=== PATIENT | female | born 1960 | race Caucasian/White ===

== ENCOUNTER 2019-09-02 17:07 | Emergency (ER) | payer MEDICARE ==
--- NOTE | 2019-09-02 17:30 | ED ---
Psych HPI - General Chief Complaint: Psychiatric Symptoms Stated Complaint: Petition Time Seen by Provider: 09/02/19 17:28 Source: police, RN notes reviewed, old records reviewed Mode of arrival: ambulatory Limitations: altered mental status (Psychiatric illness) - History of Present Illness Initial Comments: This is a 59 -year-old female the ER for evaluation patient is poor historian secondary to medical mental health. 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 and treatment and patient treatment patient denying homicidal thoughts but still also having difficulty answering questions MD Complaint: altered mental status, other (Not taking medications) - Related Data Home Medications Medication Instructions Recorded Confirmed Atorvastatin [Lipitor] 40 mg PO HS 09/02/19 09/02/19 Ergocalciferol [Vitamin D2] 50,000 unit PO Q7D 09/02/19 09/02/19 Losartan [Cozaar] 50 mg PO DAILY 09/02/19 09/02/19 Paliperidone IM [Invega Sustenna] 234 mg IM Q28D 09/02/19 09/02/19 fluPHENAZine [Prolixin 5MG] 5 mg PO HS 09/02/19 09/02/19 hydrALAZINE HCL 10 mg PO TID 09/02/19 09/02/19 metFORMIN HCL ER [Glucophage Xr] 500 mg PO BID 09/02/19 09/02/19 Allergies Allergy/AdvReac Type Severity Reaction Status Date / Time No Known Allergies Allergy Verified 09/02/19 17:22 Review of Systems ROS Statement: Those systems with pertinent positive or pertinent negative responses have been documented in the HPI. ROS Other: All systems not noted in ROS Statement are negative. Past Medical History Past Medical History: No Reported History History of Any Multi-Drug Resistant Organisms: None Reported Past Surgical History: No Surgical Hx Reported Past Psychological History: Unable to Obtain Smoking Status: Current every day smoker Past Alcohol Use History: None Reported Past Drug Use History: None Reported General Exam Limitations: no limitations General appearance: alert, in no apparent distress Head exam: Present: atraumatic, normocephalic, normal inspection Eye exam: Present: normal appearance, PERRL, EOMI. Absent: scleral icterus, conjunctival injection, periorbital swelling ENT exam: Present: normal exam, mucous membranes moist Neck exam: Present: normal inspection. Absent: tenderness, meningismus, lymphadenopathy Respiratory exam: Present: normal lung sounds bilaterally. Absent: respiratory distress, wheezes, rales, rhonchi, stridor Cardiovascular Exam: Present: regular rate, normal rhythm, normal heart sounds. Absent: systolic murmur, diastolic murmur, rubs, gallop, clicks GI/Abdominal exam: Present: soft, normal bowel sounds. Absent: distended, tenderness, guarding, rebound, rigid Extremities exam: Present: normal inspection, full ROM, normal capillary refill. Absent: tenderness, pedal edema, joint swelling, calf tenderness Back exam: Present: normal inspection Neurological exam: Present: alert, oriented X3, CN II-XII intact Psychiatric exam: Present: normal affect, normal mood Skin exam: Present: warm, dry, intact, normal color. Absent: rash Course Vital Signs 09/02/19 09/02/19 17:20 17:38 Temperature 97.7 F Pulse Rate 86 86 Respiratory 20 Rate Blood Pressure 165/94 138/70 O2 Sat by Pulse 97 94 L Oximetry - Reevaluation(s) Reevaluation #1: 09/02/19 18:55 Clear for psychiatric evaluation Reevaluation #2: 09/02/19 18:55 She'll be transferred for inpatient treatment Medical Decision Making - Medical Decision Making 59 female the ER for evaluation will admit for psychiatric evaluation and treatment Disposition Clinical Impression: Altered mental state, Depression, Non-compliant behavior Disposition: TRANSFER TO PSYCH HOSP/UNIT Condition: Fair Is patient prescribed a controlled substance at d/c from ED?: No Referrals: None,Stated [Primary Care Provider] - 1-2 days
[2019-09-02 22:52] VITALS: RESP 18
[2019-09-03 00:07] LABS: Basophils # (A) 0.1 k/uL (0-0.2); Basophils % (A) 1 %; Eosinophils # (A) 0.1 k/uL (0-0.7); Eosinophils % (A) 1 %; HCT 42.6 % (34.0-46.0); HGB 13.9 gm/dL (11.4-16.0); Lymphocytes # (A) 2.2 k/uL (1.0-4.8); Lymphocytes % (A) 21 %; MCH 29.6 pg (25.0-35.0); MCHC 32.7 g/dL (31.0-37.0); MCV 90.4 fL (80.0-100.0); Mean Platelet Volume 6.6; Monocytes # (A) 0.7 k/uL (0-1.0); Monocytes % (A) 6 %; Neutrophils # (A) 7.6 k/uL (1.3-7.7); Neutrophils % (A) 70 %; Platelet Count 387 k/uL (150-450); RBC 4.71 m/uL (3.80-5.40); RDW 14.3 % (11.5-15.5); WBC 10.8 k/uL (3.8-10.6)
[2019-09-03 00:08] LABS: ALT 29 U/L (9-52); AST 22 U/L (14-36); African American GFR (CKD) >90 (>60 ml/min/1.73 sqM); Alkaline Phosphatase 94 U/L (38-126); Anion Gap 6 mmol/L; Blood Urea Nitrogen 8 mg/dL (7-17); Calcium 9.4 mg/dL (8.4-10.2); Carbon Dioxide 27 mmol/L (22-30); Chloride 106 mmol/L (98-107); Glucose 170 mg/dL (74-99); Sodium 139 mmol/L (137-145); Total Bilirubin 0.4 mg/dL (0.2-1.3); Total Protein 6.8 g/dL (6.3-8.2)
[2019-09-03 01:18] LABS: Appearance,Urine Clear (Clear); Bacteria,Urine Moderate /hpf; Bilirubin,Urine Negative (Negative); Blood,Urine Trace (Negative); Color,Urine Light Yellow; Glucose,Urine (UA) Negative (Negative); Ketones,Urine Negative (Negative); Leukocyte Esterase,Urine Moderate (Negative); Mucus,Urine Rare /hpf; Nitrite,Urine Negative (Negative); PH, Urine 7.5 (5.0-8.0); Protein,Urine 1+ (Negative); RBC,Urine 3 /hpf (0-5); Specific Gravity,Urine 1.006 (1.001-1.035); Squamous Epithelial Cell,Urine 3 /hpf (0-4); Urobilinogen,Urine <2.0 mg/dL (<2.0); WBC,Urine 22 /hpf (0-5)
[2019-09-03 01:24] LABS: Amphetamine Screen,Urine Not Detected (NotDetected); Barbiturate Screen,Urine Not Detected (NotDetected); Benzodiazepines Screen,Urine Not Detected (NotDetected); Cocaine Screen,Urine Not Detected (NotDetected); Methadone Screen, Urine Not Detected (NotDetected); Opiate Screen,Urine Not Detected (NotDetected); Oxycodone Screen, Urine Not Detected (NotDetected); Phencyclidine Screen,Urine Not Detected (NotDetected); Tricyclic Antidepressant,Urine Not Detected (NotDetected); Urn Cannabinoid Scrn Not Detected (NotDetected)
[2019-09-03 06:23] VITALS: BP 134/77; PULSE 70; TEMP 97.8
== END 2019-09-03 06:49 ==
LOC: EC 17:07 → EEVIPCON 17:07 → EC 09-03 06:49
DX: Z04.6 Encounter for general psychiatric examination, requested by authority (principal); F32.9 Major depressive disorder, single episode, unspecified; R41.82 Altered mental status, unspecified; Z91.19 Patient's noncompliance with other medical treatment and regimen; F17.200 Nicotine dependence, unspecified, uncomplicated; Z79.899 Other long term (current) drug therapy
CPT/HCPCS: 36415; 80053; 80306; 81001; 82075; 85025; 99285

== ENCOUNTER 2019-12-17 20:46 | Emergency (ER) | payer MEDICARE, OTHER ==
[2019-12-17 20:53] VITALS: BP 149/85; PULSE 103; RESP 18; TEMP 98.7
[2019-12-17] MEDS ORDERED: PALIPERIDONE IM 234 MG/1.5 ML SYG IM STA (21:45)
--- NOTE | 2019-12-17 21:45 | ED ---
Psych HPI - General Chief Complaint: Psychiatric Symptoms Stated Complaint: Mental Health Eval Time Seen by Provider: 12/17/19 20:57 Source: patient, police, RN notes reviewed, old records reviewed Mode of arrival: ambulatory - History of Present Illness Initial Comments: This is a 59-year-old female poor historian secondary to clinical condition as well as underlying mental health developmental delay collision for psychiatric illness. Patient's been not taking her psychiatric medications at home was sent into the ER under court petition for medication injection the patient presents for same currently. PD brings patient to the ER they arrived with petition and history MD Complaint: altered mental status -: days(s) Associated Psychiatric Symptoms: racing thoughts Quality: constant Improves With: none Worsens With: none Context: not taking psychiatric medications Associated Symptoms: denies other symptoms Treatments Prior to Arrival: placed on mental health hold - Related Data Home Medications Medication Instructions Recorded Confirmed Atorvastatin [Lipitor] 40 mg PO HS 09/02/19 09/02/19 Ergocalciferol [Vitamin D2] 50,000 unit PO Q7D 09/02/19 09/02/19 Losartan [Cozaar] 50 mg PO DAILY 09/02/19 09/02/19 Paliperidone IM [Invega Sustenna] 234 mg IM Q28D 09/02/19 09/02/19 fluPHENAZine [Prolixin 5MG] 5 mg PO HS 09/02/19 09/02/19 hydrALAZINE HCL 10 mg PO TID 09/02/19 09/02/19 metFORMIN HCL ER [Glucophage Xr] 500 mg PO BID 09/02/19 09/02/19 Allergies Allergy/AdvReac Type Severity Reaction Status Date / Time No Known Allergies Allergy Verified 12/17/19 20:53 Review of Systems ROS Statement: Those systems with pertinent positive or pertinent negative responses have been documented in the HPI. ROS Other: All systems not noted in ROS Statement are negative. Past Medical History Past Medical History: No Reported History History of Any Multi-Drug Resistant Organisms: None Reported Past Surgical History: Section Past Psychological History: Unable to Obtain Smoking Status: Current every day smoker Past Alcohol Use History: None Reported Past Drug Use History: None Reported General Exam Limitations: no limitations General appearance: alert, in no apparent distress, anxious Head exam: Present: atraumatic, normocephalic, normal inspection Eye exam: Present: normal appearance, PERRL, EOMI. Absent: scleral icterus, conjunctival injection, periorbital swelling ENT exam: Present: normal exam, mucous membranes moist Neck exam: Present: normal inspection. Absent: tenderness, meningismus, lymphadenopathy Respiratory exam: Present: normal lung sounds bilaterally. Absent: respiratory distress, wheezes, rales, rhonchi, stridor Cardiovascular Exam: Present: normal rhythm, tachycardia, normal heart sounds. Absent: systolic murmur, diastolic murmur, rubs, gallop, clicks GI/Abdominal exam: Present: soft, normal bowel sounds. Absent: distended, tenderness, guarding, rebound, rigid Extremities exam: Present: normal inspection, full ROM, normal capillary refill. Absent: tenderness, pedal edema, joint swelling, calf tenderness Back exam: Present: normal inspection Neurological exam: Present: alert, oriented X3, CN II-XII intact Psychiatric exam: Present: normal affect, normal mood Skin exam: Present: warm, dry, intact, normal color. Absent: rash Course Vital Signs 12/17/19 20:49 Temperature 98.7 F Pulse Rate 103 H Respiratory 18 Rate Blood Pressure 149/85 - Reevaluation(s) Reevaluation #1: 12/17/19 21:50 Medical records reviewed patient was made medically clear for psychiatric evaluation Reevaluation #2: 12/17/19 21:50 Patient seen and evaluated by psych as well as talked mental health patient does have outpatient treatment plan the house very suicidal will give patient medication injection and patient will be okay for discharge Medical Decision Making - Medical Decision Making 50 female DF for evaluation of psychiatric illness given psychiatric medication here in the ER deemed okay for discharge home Disposition Clinical Impression: Acute anxiety, Psychosis Disposition: HOME SELF-CARE Condition: Fair Instructions (If sedation given, give patient instructions): Psychotic Disorder (ED) Is patient prescribed a controlled substance at d/c from ED?: No Referrals: None,Stated [Primary Care Provider] - 1-2 days
== END 2019-12-17 22:23 | disposition home or self-care (01) ==
LOC: EC 20:46
DX: F29 Unspecified psychosis not due to a substance or known physiological condition (principal); F41.9 Anxiety disorder, unspecified; F17.200 Nicotine dependence, unspecified, uncomplicated; Z79.899 Other long term (current) drug therapy
CPT/HCPCS: 82075; 99285; 96372; J2426

== ENCOUNTER 2020-02-23 19:24 | Inpatient (IN) | payer MEDICARE, MEDICAID ==
--- NOTE | 2020-02-23 20:25 | ED ---
Psych HPI - General Source: patient, RN notes reviewed Mode of arrival: ambulatory Limitations: no limitations <Scott Parikh - Last Filed: 02/23/20 21:51> <Umberto Hernandez - Last Filed: 02/23/20 21:56> - General Chief Complaint: Psychiatric Symptoms Stated Complaint: Mental Health Time Seen by Provider: 02/23/20 19:33 - History of Present Illness Initial Comments: This a 60-year-old female presents emergency Department from shelter for Psychiatric evaluation. Patient was picked up on Court picked up for medication noncompliance. Patient has been having some reported bizarre behavior, patient believes that she is her own physician. Patient denies being suicidal or homicidal. No physical complaints denies any chest pain, increased breath, nausea, vomiting, diarrhea constipation. (Scott Parikh) - Related Data Home Medications Medication Instructions Recorded Confirmed Ergocalciferol [Vitamin D2] 50,000 unit PO FR 09/02/19 02/23/20 metFORMIN HCL ER [Glucophage Xr] 1,000 mg PO DAILY@1700 09/02/19 02/23/20 Atorvastatin [Lipitor] 20 mg PO HS@2100 02/23/20 02/23/20 Losartan/Hydrochlorothiazide 1 tab PO DAILY@0800 02/23/20 02/23/20 [Losartan-Hctz 100-25 mg Tab] Allergies Allergy/AdvReac Type Severity Reaction Status Date / Time No Known Allergies Allergy Verified 02/23/20 21:11 Review of Systems ROS Other: All systems not noted in ROS Statement are negative. <Soctt Parikh - Last Filed: 02/23/20 21:51> ROS Other: All systems not noted in ROS Statement are negative. <Umberto Hernandez - Last Filed: 02/23/20 21:56> ROS Statement: Those systems with pertinent positive or pertinent negative responses have been documented in the HPI. Past Medical History Past Medical History: No Reported History History of Any Multi-Drug Resistant Organisms: None Reported Past Surgical History: Section Past Psychological History: Unable to Obtain Smoking Status: Current every day smoker Past Alcohol Use History: None Reported Past Drug Use History: None Reported <Scott Parikh - Last Filed: 02/23/20 21:51> General Exam Limitations: no limitations General appearance: alert, in no apparent distress Head exam: Present: atraumatic, normocephalic, normal inspection Eye exam: Present: normal appearance, PERRL, EOMI. Absent: scleral icterus, conjunctival injection, periorbital swelling ENT exam: Present: normal exam, mucous membranes moist Neck exam: Present: normal inspection, full ROM. Absent: tenderness, meningismus, lymphadenopathy Respiratory exam: Present: wheezes (Minimal). Absent: normal lung sounds bilaterally, respiratory distress, rales, rhonchi, stridor Cardiovascular Exam: Present: regular rate, normal rhythm, normal heart sounds. Absent: systolic murmur, diastolic murmur, rubs, gallop, clicks Neurological exam: Present: alert, oriented X3, CN II-XII intact Psychiatric exam: Present: agitated, anxious <Scott Parikh - Last Filed: 02/23/20 21:51> Course Vital Signs 02/23/20 19:29 Temperature 97.6 F Pulse Rate 90 Respiratory 18 Rate Blood Pressure 150/82 O2 Sat by Pulse 95 Oximetry Medical Decision Making <Scott Parikh - Last Filed: 02/23/20 21:51> <Umberto Hernandez - Last Filed: 02/23/20 21:56> - Medical Decision Making Patient reevaluated by EPS case discussed with psychiatrist who recommends inpatient treatment. (Scott Parikh) Patient seen by mental services with plans for admission. Patient reevaluated by myself, Dr. Hernandez. Patient resting comfortably in bed. Patient believes she is taking her medications. Patient is avoiding answers and noncompliant with conversation at this time. Positive clinical certificate completed. (Umberto Hernandez) - Lab Data Lab Results 02/23/20 02/23/20 Range/Units 19:58 21:12 POC Glucose (mg/dL) 208 H (75-99) mg/dL POC Glu Public Address Technician ID Yumiko, Shamiya, A Urine Opiates Screen Not Detected (NotDetected) Ur Oxycodone Screen Not Detected (NotDetected) Urine Methadone Screen Not Detected (NotDetected) Ur Propoxyphene Screen Not Detected (NotDetected) Ur Barbiturates Screen Not Detected (NotDetected) U Tricyclic Antidepress Not Detected (NotDetected) Ur Phencyclidine Scrn Not Detected (NotDetected) Ur Amphetamines Screen Not Detected (NotDetected) U Methamphetamines Scrn Not Detected (NotDetected) U Benzodiazepines Scrn Not Detected (NotDetected) Urine Cocaine Screen Not Detected (NotDetected) U Marijuana (THC) Screen Not Detected (NotDetected) Disposition <Scott Parikh - Last Filed: 02/23/20 21:51> <Umberto Hernandez - Last Filed: 02/23/20 21:56> Clinical Impression: Acute psychosis, Bipolar disorder Disposition: TRANSFER TO PSYCH HOSP/UNIT Condition: Fair Referrals: None,Stated [Primary Care Provider] - 1-2 days
[2020-02-23 20:26] LABS: Amphetamine Screen,Urine Not Detected (NotDetected); Barbiturate Screen,Urine Not Detected (NotDetected); Benzodiazepines Screen,Urine Not Detected (NotDetected); Cocaine Screen,Urine Not Detected (NotDetected); Methadone Screen, Urine Not Detected (NotDetected); Opiate Screen,Urine Not Detected (NotDetected); Oxycodone Screen, Urine Not Detected (NotDetected); Phencyclidine Screen,Urine Not Detected (NotDetected); Tricyclic Antidepressant,Urine Not Detected (NotDetected); Urn Cannabinoid Scrn Not Detected (NotDetected)
[2020-02-23 21:15] LABS: Glucose,Whole Blood 208 mg/dL (75-99)
[2020-02-23] MEDS ORDERED: MAGNESIUM HYDROXIDE 2,400 MG/10 ML CUP PO PRN (23:18)
[2020-02-23] MEDS ORDERED: MAG HYDROX/AL HYDROX/SIMETH 30 ML CUP PO PRN (23:18)
[2020-02-23] MEDS ORDERED: ZIPRASIDONE 20 MG VIAL IM PRN (23:18)
[2020-02-23] MEDS ORDERED: LORazepam 1 MG TAB PO PRN (23:18)
[2020-02-23] MEDS ORDERED: ACETAMINOPHEN TAB 325 MG TAB PO PRN (23:18)
[2020-02-24] MEDS ORDERED: IPRATROPIUM-ALBUTEROL 3 ML NEB INHALATION PRN (00:08)
--- NOTE | 2020-02-24 00:38 | P.MDCNMH ---
History of Present Illness H&P Date: 02/23/20 Chief Complaint: medical evaluation 60 year old female with bipolar disorder , HTN, DM , HLD patient comes in from a snf, for psychiatric evaluation , she has not been taking any of her medications, and has been non compliant,. she also believes that she is her own doctor, and claims that she has been drinking a vegetable oil to help wiht her cholestrol problems. she was brought in under court order for evaluation. she is very poor historian, and keeps talking about some kind of animal or bug inside her belly,. however when asked directly she denies any fever, chills, coughing, chest pain, trouble breathing, nausea , vomiting, abd pain , leg pain , GI bleeding. she admits to smoking, but denies any history of COPD. or asthma in the ED her oxygen sat was 95%, however, when RN was doing her admission she noticed that oxygen sat drops to low 90 to high 80s. and only goes up as high as 91% with deep breathing and sitting up. patient is alert and oriented to place, person and time. she again denies any symptoms , she denies using home oxygen otherwise she is very poor historian Review of Systems Pertinent positives as noted in HPI. All other systems were reviewed and are negative, however patient is poor historian and unreliable Past Medical History Past Medical History: No Reported History, Diabetes Mellitus, Hypertension History of Any Multi-Drug Resistant Organisms: None Reported Past Surgical History: Section Past Psychological History: Unable to Obtain Smoking Status: Current every day smoker Past Alcohol Use History: None Reported Past Drug Use History: None Reported - Past Family History family Family Medical History: Unable to Obtain Medications and Allergies Home Medications Medication Instructions Recorded Confirmed Type Ergocalciferol [Vitamin D2] 50,000 unit PO FR 09/02/19 02/23/20 History metFORMIN HCL ER [Glucophage Xr] 1,000 mg PO DAILY@1700 09/02/19 02/23/20 History Atorvastatin [Lipitor] 20 mg PO HS@2100 02/23/20 02/23/20 History Losartan/Hydrochlorothiazide 1 tab PO DAILY@0800 02/23/20 02/23/20 History [Losartan-Hctz 100-25 mg Tab] Allergies Allergy/AdvReac Type Severity Reaction Status Date / Time No Known Allergies Allergy Verified 02/23/20 21:11 Physical Exam Vitals: Vital Signs Temp Pulse Resp BP Pulse Ox 02/23/20 22:48 97.8 F 84 18 113/66 95 02/23/20 19:29 97.6 F 90 18 150/82 95 Intake and Output 02/23/20 02/23/20 02/24/20 14:59 22:59 06:59 Other: Weight 117.934 kg Constitutional: No acute distress, conversant, pleasant, cooperative with exam Eyes: Anicteric sclerae, moist conjunctiva, Pupils equal round reactive to light ENMT: NC/AT Oropharynx clear, no erythema, or exudates Neck: Supple, FROM, no masses, or JVD No carotid bruits No thyromegaly Lungs: diffuse expiratory wheezing mild, with slightly prolonged expiratory phase. otherwise no rales Clear to percussion Normal respiratory effort, no accessory muscle use Cardiovascular: Heart regular in rate and rhythm, No murmurs, gallops, or rubs +1 bilateral peripheral leg edema Abdominal: Soft, obese limiting exam Nontender, no guarding, rebound or rigidity Abdomen moving with respiration Normoactive bowel sounds No hepatomegaly, No splenomegaly No palpable mass No abdominal wall hernia noted Skin: skin of bilateral feet, dry and scally, with poor hygiene patient thoracic back, with multiple small lesions slight erythema over lower third of bilateral legs, no induration , no wounds, or skin ulcers. Extremities: No digital cyanosis No clubbing Pedal pulses intact and symmetrical Radial pulses intact and symmetrical No calf tenderness Psychiatric: Alert and oriented to person, place and time flat affect poor judgement Neuro Muscles Strength 4/5 in all 4 extremities Sensation to light touch grossly present throughout Cranial nerves II-XII grossly intact No focal sensory deficits Lymphatics: no palpable cervical or supraclavicular , or inguinal lymph nodes Cranial Nerve Examination - Cranial Nerves Cranial Nerve II- Optic: Intact Cranial Nerve III- Oculomotor: Intact Cranial Nerve IV- Trochlear: Intact Cranial Nerve V- Trigeminal: Intact Cranial Nerve - Abducens: Intact Cranial Nerve VII- Facial: Intact Cranial Nerve VIII- Auditory: Intact Cranial Nerve IX- Glossopharyngeal: Intact Cranial Nerve X- Vagus: Intact Cranial Nerve XI- Accessory: Intact Cranial Nerve XII- Hypoglossal: Intact Results Labs: Abnormal Lab Results - Last 24 Hours (Table) 02/23/20 Range/Units 21:12 POC Glucose (mg/dL) 208 H (75-99) mg/dL Assessment and Plan Assessment: 60 year old female with hypertension , DM , bipolar disorder. lives at a snf, and was brought in for non compliance. medicine consulted for evaluation regarding hypoxemia. acute hypoxic respiratory failure, unknown baseline suspect obesity hypoventilation syndrome , patient oxygenation improves with sitting up and taking deep breath check CXR, d dimer, CBC, bmp trial of breathing treatment with duoneb and supplemental oxygen if D dimer elevated, then suspicion for PE, and patient would be transferred to medical floor for further management and workup chronic conditions hypertension , resume home meds DM, insulin sliding scale, check A1C% hyperlipidemia, resume homemeds bipolar disorder acute psychosis management per psych DVT PPX, heparin sc tid Thank you for allowing us to participate in the care of this patient. Do not hesitate to contact us with questions. Someone can be reached from the [facility] hospitalist group at all hours of the day at [phone].
--- NOTE | 2020-02-24 00:48 | XR ---
EXAMINATION TYPE: XR chest 1V DATE OF EXAM: 02/24/2020 COMPARISON: NONE HISTORY: Hypoxemia TECHNIQUE: Single view FINDINGS: There is no heart failure nor confluent pneumonic infiltrate. There is mild blunting left c ostophrenic angle. Heart size is fairly normal. IMPRESSION: There is pleural diaphragmatic scarring at the left lung base. Normal heart.
[2020-02-24 01:01] LABS: Anisocytosis Slight; Basophils # (A) 0.1 k/uL (0-0.2); Basophils % (A) 1 %; Eosinophils # (A) 0.1 k/uL (0-0.7); Eosinophils % (A) 1 %; HCT 36.7 % (34.0-46.0); HGB 12.1 gm/dL (11.4-16.0); Hypochromasia Moderate; Lymphocytes # (A) 2.2 k/uL (1.0-4.8); Lymphocytes % (A) 20 %; MCH 29.5 pg (25.0-35.0); MCHC 32.8 g/dL (31.0-37.0); MCV 89.8 fL (80.0-100.0); Mean Platelet Volume 6.9; Monocytes # (A) 0.6 k/uL (0-1.0); Monocytes % (A) 6 %; Neutrophils # (A) 7.6 k/uL (1.3-7.7); Neutrophils % (A) 71 %; Platelet Count 299 k/uL (150-450); RBC 4.09 m/uL (3.80-5.40); RDW 16.9 % (11.5-15.5); WBC 10.6 k/uL (3.8-10.6)
[2020-02-24 01:19] VITALS: RESP 22
[2020-02-24 01:26] LABS: ALT 13 U/L (4-34); AST 15 U/L (14-36); African American GFR (CKD) >90 (>60 ml/min/1.73 sqM); Albumin 3.8 g/dL (3.5-5.0); Alkaline Phosphatase 112 U/L (38-126); Anion Gap 4 mmol/L; Blood Urea Nitrogen 17 mg/dL (7-17); Calcium 8.8 mg/dL (8.4-10.2); Carbon Dioxide 32 mmol/L (22-30); Chloride 95 mmol/L (98-107); Glucose 179 mg/dL (74-99); Non-African American GFR(CKD) >90 (>60 ml/min/1.73 sqM); Potassium 4.2 mmol/L (3.5-5.1); Sodium 131 mmol/L (137-145); Total Protein 6.6 g/dL (6.3-8.2)
[2020-02-24 01:26] LABS: Appearance,Urine Cloudy (Clear); Bacteria,Urine Many /hpf; Bilirubin,Urine Negative (Negative); Blood,Urine Trace (Negative); Color,Urine Yellow; Glucose,Urine (UA) 2+ (Negative); Ketones,Urine Negative (Negative); Leukocyte Esterase,Urine Large (Negative); Mucus,Urine Rare /hpf; Nitrite,Urine Negative (Negative); PH, Urine 7.5 (5.0-8.0); Protein,Urine 1+ (Negative); RBC,Urine 4 /hpf (0-5); Specific Gravity,Urine 1.014 (1.001-1.035); Squamous Epithelial Cell,Urine 4 /hpf (0-4); Urobilinogen,Urine <2.0 mg/dL (<2.0); WBC,Urine 63 /hpf (0-5)
[2020-02-24] MEDS ORDERED: SYMBICORT 160-4.5 MCG INHALER INHALATION SCH (02:00)
[2020-02-24 02:10] LABS: Bilirubin,Unconjugated 0.6 mg/dL (0.0-1.1); Cholesterol 201 mg/dL (<200); LDL Cholesterol,Calculated 73 mg/dL (0-99); Total Bilirubin 0.5 mg/dL (0.2-1.3)
[2020-02-24 02:15] LABS: HDL Cholesterol 71 mg/dL (40-60); Triglycerides 283 mg/dL (<150)
[2020-02-24] MEDS: INSULIN ASPART (NovoLOG) 100 UNIT/ML VIAL SQ SCH ×2 (02:29→08:11)
[2020-02-24 07:41] LABS: Glucose,Whole Blood 171 mg/dL (75-99)
[2020-02-24] MEDS ORDERED: NON FORMULARY DRUG (Losartan/Hydrochlorothiazide [Losartan-Hctz 100-25 Mg Tab] 1 TAB) PO SCH (08:00)
[2020-02-24] MEDS: HEPARIN SODIUM,PORCINE 5,000 UNIT/ML 1 ML VIAL SQ SCH ×2 (08:14→08:28)
[2020-02-24] MEDS: metFORMIN 500 MG TAB PO SCH ×2 (08:14→08:28)
[2020-02-24] MEDS: LOSARTAN-HCTZ 50-12.5 MG 1 EACH TAB PO SCH ×2 (08:14→08:30)
[2020-02-24] MEDS ORDERED: SYMBICORT 160-4.5 MCG INHALER (MHU) INHALATION SCH (08:30)
[2020-02-24] MEDS ORDERED: NICOTINE 14MG/24HR PATCH TRANSDERM SCH (09:00)
[2020-02-24 09:16] VITALS: BP 115/56; PULSE 86; TEMP 98.3
[2020-02-24] MEDS ORDERED: ATORVASTATIN 20 MG TAB PO SCH ×2 (21:00)
[2020-02-25] MEDS ORDERED: ERGOCALCIFEROL 50,000 UNIT CAP PO SCH (09:00)
== END 2020-02-24 10:07 | disposition short-term general hospital (02) | DRG 885 ==
LOC: EC 19:24 → 3MHU 23:07
PROVIDERS: ADMIT Psychiatry & Neurology Psychiatry; ATTEND Psychiatry & Neurology Psychiatry
DX: F23 Brief psychotic disorder (principal); J96.00 Acute respiratory failure, unspecified whether with hypoxia or hypercapnia; E66.2 Morbid (severe) obesity with alveolar hypoventilation; Z68.42 Body mass index [BMI] 45.0-49.9, adult; F31.9 Bipolar disorder, unspecified; E11.9 Type 2 diabetes mellitus without complications; Z91.128 Patient's intentional underdosing of medication regimen for other reason; T50.906A Underdosing of unspecified drugs, medicaments and biological substances, initial encounter; J44.9 Chronic obstructive pulmonary disease, unspecified; Z20.828 Contact with and (suspected) exposure to other viral communicable diseases; I10 Essential (primary) hypertension; E78.5 Hyperlipidemia, unspecified; F17.200 Nicotine dependence, unspecified, uncomplicated; Y63.6 Underdosing and nonadministration of necessary drug, medicament or biological substance; Z98.891 History of uterine scar from previous surgery; Z79.84 Long term (current) use of oral hypoglycemic drugs; Z79.899 Other long term (current) drug therapy
CPT/HCPCS: 36415; 71045; 80053; 80061; 80306; 81001; 82248; 83036; 84443; 84484; 85025; 85379; 87635; 94640; 99285

== ENCOUNTER 2020-02-24 09:27 | Inpatient (IN) | payer MEDICARE, OTHER ==
[2020-02-24] MEDS ORDERED: ACETAMINOPHEN TAB 325 MG TAB PO PRN (11:00)
[2020-02-24] MEDS ORDERED: NALOXONE 0.4 MG/ML 1 ML VIAL IV PRN (11:00)
[2020-02-24] MEDS ORDERED: ONDANSETRON 4 MG/2 ML VIAL IVP PRN (11:00)
[2020-02-24] MEDS ORDERED: MELATONIN 3 MG TABLET PO PRN (11:00)
[2020-02-24] MEDS ORDERED: IPRATROPIUM-ALBUTEROL 3 ML NEB INHALATION PRN (11:04)
--- NOTE | 2020-02-24 15:15 | P.HPIM ---
History of Present Illness H&P Date: 02/24/20 Chief Complaint: hypoxia, dyspnea Izk-rlfr-nal female with a history of bipolar disorder was admitted to inpatient psych last night after she had been off of her medications for several days. She was brought in under court order for evaluation, she is a poor historian and is actively psychotic with delusional thinking and possible hallucinations. She was in a stable condition when she was first admitted to inpatient psychiatry, however it was noted that her oxygen saturation occasionally drops in the low 90s but there is no signs of distress during acute pathology. Later today, she began to complain of shortness of breath, and her oxygen saturation dropped on 88 even on 2 L, she is not on home oxygen. She is a heavy smoker, most likely has undiagnosed COPD. She denies any chest pain, but did report to the nursing staff earlier that she had some chest pressure, no cough fever or chills, no abdominal pain. Her UA showed multiple WBCs and bacteria, when asked specifically about urinary symptoms, she was able to give any reliable answers as she was talking about tangential topics with delusional thoughts. For these reasons, she was transferred from inpatient psychiatry to the medical floor for closer observation. Patient is currently in stable condition, oxygen saturation 91% on 4 L. Chest x-ray done the previous night did not show any acute pathology, d-dimer is negative, Covid 19 negative Review of Systems Constitutional: Denies chills, Denies fever Eyes: denies blurred vision Cardiovascular: Reports shortness of breath, Denies chest pain, Denies irregular heart beat, Denies palpitations Respiratory: Denies cough, Denies dyspnea, Denies home oxygen, Denies pain on inspiration Gastrointestinal: Denies abdominal pain, Denies nausea, Denies vomiting Genitourinary: Reports urinary frequency, Denies dysuria, Denies hematuria, Denies urgency Musculoskeletal: Reports frequent falls, Denies leg numbness/tingling, Denies myalgias Neurological: Denies headaches, Denies loss of vision, Denies seizures, Denies syncope, Denies tremors Psychiatric: Reports anxiety, Reports hallucinations, Reports paranoia, Denies suicidal ideation Past Medical History Past Medical History: No Reported History, Diabetes Mellitus, Hypertension History of Any Multi-Drug Resistant Organisms: None Reported Past Surgical History: Section Past Anesthesia/Blood Transfusion Reactions: No Reported Reaction Past Psychological History: Unable to Obtain Smoking Status: Current every day smoker Past Alcohol Use History: None Reported Past Drug Use History: None Reported - Past Family History family Family Medical History: Unable to Obtain Medications and Allergies Home Medications Medication Instructions Recorded Confirmed Type Ergocalciferol [Vitamin D2] 50,000 unit PO FR 09/02/19 02/24/20 History metFORMIN HCL ER [Glucophage Xr] 1,000 mg PO DAILY@1700 09/02/19 02/24/20 History Atorvastatin [Lipitor] 20 mg PO HS@2100 02/23/20 02/24/20 History Losartan/Hydrochlorothiazide 1 tab PO DAILY@0800 02/23/20 02/24/20 History [Losartan-Hctz 100-25 mg Tab] Allergies Allergy/AdvReac Type Severity Reaction Status Date / Time No Known Allergies Allergy Verified 02/23/20 21:11 Physical Exam Osteopathic Statement: *. No significant issues noted on an osteopathic structural exam other than those noted in the History and Physical/Consult. Vitals: Vital Signs Temp Pulse Resp BP Pulse Ox 02/24/20 10:30 98.3 F 88 18 118/77 91 L Intake and Output 02/24/20 02/24/20 02/24/20 06:59 14:59 22:59 Other: Weight 119.7 kg - Constitutional General appearance: disheveled, morbidly obese, no acute distress - EENT Eyes: EOMI, PERRLA - Neck Neck: no lymphadenopathy, normal ROM - Respiratory Respiratory: bilateral: diminished, negative: rhonchi, wheezing - Cardiovascular Rhythm: regular Heart sounds: normal: S1, S2 Abnormal Heart Sounds: no systolic murmur, no diastolic murmur - Gastrointestinal General gastrointestinal: no decreased bowel sounds, no hepatomegaly, no tenderness - Neurologic Neurologic: CNII-XII intact - Musculoskeletal Musculoskeletal: strength equal bilaterally - Psychiatric Delusional thoughts, speech is tangential, appears to be responding to internal stimuli, flat affect Thrombosis Risk Factor Assmnt - Choose All That Apply Each Factor Represents 1 point: Age 41-60 years, Obesity (BMI >25) Other Risk Factors: No Other congenital or acquired thrombophilia - If yes, enter type in comment: No Thrombosis Risk Factor Assessment Total Risk Factor Score: 2 Thrombosis Risk Factor Assessment Level: Low Risk Assessment and Plan Assessment: # Acute hypoxic respiratory failure -Chest x-ray report was read as no acute pathology, however there might be some evidence of mild fluid overload -We'll check proBNP, trial of IV Lasix of elevated -Patient is a heavy smoker, no diagnosis of COPD, no bronchospasm on examination -Albuterol as needed for now. If it becomes evident that there is COPD exacerbation, increase DuoNeb dose and frequency, and steroids and azithromycin -D-dimer negative, making PE highly unlikely at this time -Possibly component of obesity hypoventilation -Supplemental oxygen, maintain saturation greater than 90% # Acute cystitis -IV ceftriaxone -Follow up on urine cultures -No signs of sepsis at this time # Bipolar disorder/acute psychosis -Patient was transferred from mental health unit due to hypoxia -We'll consult psychiatry # Diabetes mellitus -Metformin on hold -Continue insulin sliding scale # Hypertension -Controlled on home Cozaar and hydrochlorothiazide # Morbid obesity # DVT prophylaxis
[2020-02-24] MEDS: INSULIN ASPART (NovoLOG) 100 UNIT/ML VIAL SQ SCH ×2 (15:49→17:29)
[2020-02-24] MEDS: CEPHALEXIN 500 MG CAP PO SCH ×2 (17:34→21:42)
[2020-02-24] MEDS: SYMBICORT 160-4.5 MCG INHALER INHALATION SCH (19:43)
[2020-02-24] MEDS ORDERED: ATORVASTATIN 20 MG TAB PO SCH (21:00)
[2020-02-25 07:53] LABS: Glucose,Whole Blood 159 mg/dL (75-99)
[2020-02-25 07:53] LABS: Glucose,Whole Blood 139 mg/dL (75-99)
[2020-02-25 08:02] LABS: Glucose,Whole Blood 196 mg/dL (75-99)
[2020-02-25] MEDS: INSULIN ASPART (NovoLOG) 100 UNIT/ML VIAL SQ SCH ×3 (08:20→17:22)
[2020-02-25] MEDS: SYMBICORT 160-4.5 MCG INHALER INHALATION SCH (08:22)
[2020-02-25 09:01] LABS: Anisocytosis Slight; Basophils % (A) 0 %; Eosinophils # (A) 0.1 k/uL (0-0.7); Eosinophils % (A) 1 %; HCT 38.5 % (34.0-46.0); HGB 11.7 gm/dL (11.4-16.0); Hypochromasia Marked; Lymphocytes # (A) 1.3 k/uL (1.0-4.8); Lymphocytes % (A) 13 %; MCH 28.1 pg (25.0-35.0); MCHC 30.5 g/dL (31.0-37.0); MCV 92.1 fL (80.0-100.0); Mean Platelet Volume 7.2; Monocytes # (A) 0.5 k/uL (0-1.0); Monocytes % (A) 5 %; Neutrophils # (A) 7.9 k/uL (1.3-7.7); Neutrophils % (A) 80 %; Platelet Count 264 k/uL (150-450); RBC 4.18 m/uL (3.80-5.40); RDW 16.9 % (11.5-15.5); WBC 9.9 k/uL (3.8-10.6)
[2020-02-25 09:19] LABS: ALT 14 U/L (4-34); AST 14 U/L (14-36); African American GFR (CKD) >90 (>60 ml/min/1.73 sqM); Albumin 3.7 g/dL (3.5-5.0); Alkaline Phosphatase 100 U/L (38-126); Anion Gap 7 mmol/L; Blood Urea Nitrogen 14 mg/dL (7-17); Calcium 8.6 mg/dL (8.4-10.2); Carbon Dioxide 29 mmol/L (22-30); Chloride 96 mmol/L (98-107); Glucose 208 mg/dL (74-99); Non-African American GFR(CKD) >90 (>60 ml/min/1.73 sqM); Potassium 4.5 mmol/L (3.5-5.1); Sodium 132 mmol/L (137-145); Total Bilirubin 0.9 mg/dL (0.2-1.3); Total Protein 6.6 g/dL (6.3-8.2)
[2020-02-25] MEDS: LOSARTAN-HCTZ 50-12.5 MG 1 EACH TAB PO SCH (09:21)
[2020-02-25] MEDS: CEPHALEXIN 500 MG CAP PO SCH ×2 (09:21→13:46)
[2020-02-25 12:22] LABS: Glucose,Whole Blood 171 mg/dL (75-99)
--- NOTE | 2020-02-25 12:45 | P.CN ---
Psychiatric Consult - . Consult date: 02/25/20 Consult:: 02/25/20 12:37 IDENTIFYING DATA: This patient is a 60-year-old female who currently lives in a alf and presented to the ER with bizarre and delusional behaviors. HISTORY OF PRESENT ILLNESS: The patient presented to the hospital on a pickup order as patient was apparently off of her medications. Patient was acting bizarre and delusional in the ER and stated that she was off her medications and at that time she was transferred to the adult unit. While on the mental health unit on her first day patient had shortness of breath and also complained of chest pressure and her O2 saturations dropped below 90s and patient was deemed to have acute hypoxic failure and also found to have acute cystitis and was transferred to the medical floors. Patient's chest x-ray was negative. Psychiatry is consulted for continuing care and evaluation. Patient was seen at the bedside and was watching television and was directable and agreeable to speak to personal lines underwriter. She spoke significantly about what she was watching on toll on the television and minimized her symptoms. She states that she has been off her medications for approximately one week and when asked why patient gave a tangential and appropriate answer. Patient was fairly superficial with personal lines underwriter and vague. She was stating that she has 15 boys at home and 9 grandchildren. She was delusional and bizarre at times with loose associations. She states that her sleep is "good" and states that she sleeps approximately 5 hours a night. She endorsed feeling "cranky" when asked about her mood and states that she has been irritable. At this time patient denies any suicidal or homical ideations, intent or plan. Patient denies any auditory, visual hallucinations and denies any paranoia or delusions. Patients admits to using cigarettes approximately one pack a day and denies any other recreational drug use. PAST PSYCHIATRIC HISTORY: Patient claims that she has a history of bipolar disorder and several hospitalizations however none were seen on the EMR to [facility]. She denies any history of suicide attempts. She states that she is on a "mood stabilizer" however cannot give the name. Patient states that she does not have an outpatient psychiatrist. PAST MEDICAL HISTORY: Obesity, diabetes mellitus, COPD. ALLERGIES: as per EMR. CHEMICAL DEPENDENCY HISTORY: as per HPI. FAMILY PSYCHIATRIC/SUBSTANCE USE HISTORY: denies SOCIAL HISTORY: And states that she was born and raised in [facility] and when asked about her education she states that "I have many diplomas". Unclear as to how many children patient has and she is currently living at a alf. MENTAL STATUS EXAM: General Appearance: Patient appears to be stated age is obese, alert, vague however directable. Patient appears to have poor hygiene and grooming wearing h ospital gown with fair eye contact. Behavior: Patient is calmly lying in bed without any agitated behavior. Speech: Patient's speech is fluent and nonpressured. Vague statements. Mood/Affect: Patient reports their mood is "cranky", affect is congruent Suicidality/Homicidality: Patient denies having any suicidal or homicidal ideation intent or plan. Perceptions: Patient denies any visual hallucinations and denies any auditory hallucinations Though content/process: Patient has several loosely formed delusions, made bizarre statements and was tangential/circumstantial. Memory and concentration: AOX3, grossly intact for the purposes of this session. Can spell "WORLD" backwards Judgment and insight: poor IMPRESSIONS: Psychosis unspecified, rule out bipolar disorder with psychotic features Nicotine dependence PLAN: -At this time patient DOES meet criteria for inpatient psychiatric admission. Patient was brought into the hospital on a pickup order for noncompliance with her medications. -Patient DOES NOT have decision making capacity at this time and is unable to reason through and communicate/appreciate the risks, benefits and alternatives to treatment. -Would recommend the following medication changes/additions: We will start Abilify 2.5 mg daily for mood stabilization/psychosis. Will also start trazodone 50 mg daily at bedtime for insomnia. -Cannot leave AMA at this time -When medically stable which includes patient's vital signs are stable and O2 saturation has improved. Patient should also be weaned off of oxygen, then patient will be eligible for transfer to a psych bed when available. -Psychiatry will sign off at this point, please contact with any questions.
[2020-02-25] MEDS: ARIPiprazole 5 MG TAB PO SCH (13:46)
--- NOTE | 2020-02-25 15:59 | P.PN ---
Subjective Progress Note Date: 02/25/20 (delayed charting seen at 10am) Principal diagnosis: hypoxia Patient is a 60-year-old female with bipolar disorder poorly controlled, diabetes, and hypertension who was initially on the inpatient mental health unit for not taking her medications for several days when she was noted to be persistently hypoxic and subsequently was transferred to the medical floor for possible obesity hypoventilation syndrome. On arrival to the mental health unit her initial oxygenation had been 95% on room air and her vital signs have been within normal limits. She was then started on 2 L nasal cannula noted to have an oxygenation saturation of 88%. Her initial laboratory analysis showed sodium of 131, chloride 95, carbon dioxide 32, glucose 179, A1c 9, triglycerides 283 with a total cholesterol 201. Urine drug screen was negative. Coronavirus PCR was negative. Urinalysis showed large leukocyte esterase with 63 white blood cells and 4 squamous epithelial cells. Chest x-ray showed scarring at the left lung base. There is concern for possible obesity hypoventilation syndrome. She was given a trial of IV Lasix. She is a heavy smoker but was not noted to have any concerns for bronchospasm. She was started on Rocephin for possible urinary tract infection. D-dimer was 0.31 essentially ruling out pulmonary embolism. Patient seen and examined at bedside. She denies any chest pain, shortness of breath, nausea, or vomiting. She does complain of feeling very tired. She denies any diarrhea. Objective - Vital Signs Vital signs: Vital Signs Temp 98.4 F 02/25/20 11:00 Pulse 70 02/25/20 11:00 Resp 18 02/25/20 11:00 BP 106/67 02/25/20 11:00 Pulse Ox 91 L 02/25/20 11:00 Intake & Output 02/24/20 02/25/20 02/25/20 18:59 06:59 18:59 Output Total 600 Balance -600 Weight 119.7 kg Output: Urine 600 Other: Voiding Method Toilet # Voids 1 2 2 - Exam General: non toxic, no distress, appears older than stated age Derm: warm, dry Head: atraumatic, normocephalic, symmetric Eyes: EOMI, no lid lag, anicteric sclera Mouth: no lip lesion, mucus membranes moist Cardiovascular: S1S2 reg, no murmur, positive posterior tibial pulse bilateral, Lungs: Decreased breath sounds bilateral likely secondary to body habitus, no wheezing, no rhonchi, no rales , no accessory muscle use Abdominal: soft, nontender to palpation, no guarding, no appreciable organomegaly Ext: no gross muscle atrophy, 2+ edema, no contractures Neuro: CN II-XI grossly intact, no focal neuro deficits Psych: Alert, oriented, appropriate affect - Labs CBC & Chem 7: 02/25/20 08:25 02/25/20 08:25 Labs: Abnormal Lab Results - Last 24 Hours (Table) 02/24/20 02/24/20 02/25/20 Range/Units 17:11 20:16 07:05 MCHC (31.0-37.0) g/dL RDW (11.5-15.5) % Neutrophils # (1.3-7.7) k/uL Sodium (137-145) mmol/L Chloride (98-107) mmol/L Creatinine (0.52-1.04) mg/dL Glucose (74-99) mg/dL POC Glucose (mg/dL) 139 H 159 H 196 H (75-99) mg/dL 02/25/20 02/25/20 02/25/20 Range/Units 08:25 08:25 12:21 MCHC 30.5 L (31.0-37.0) g/dL RDW 16.9 H (11.5-15.5) % Neutrophils # 7.9 H (1.3-7.7) k/uL Sodium 132 L (137-145) mmol/L Chloride 96 L (98-107) mmol/L Creatinine 0.49 L (0.52-1.04) mg/dL Glucose 208 H (74-99) mg/dL POC Glucose (mg/dL) 171 H (75-99) mg/dL Microbiology - Last 24 Hours (Table) 02/25/20 07:30 Urine Culture - Preliminary Urine,Voided Assessment and Plan Assessment: Acute hypoxic respiratory failure -No cause for acute hypoxia was able to be identified. Patient does not have active bronchospasm, BNP was normal excluding the possibility of heart failure, d-dimer was negative excluding the possibility of pulmonary embolism. There is concern that she has chronic hypoxic respiratory failure secondary to obesity hypoventilation syndrome and likely will need an acceptable O2 pulse ox of 88% on room air, if she is less than 88% she will likely need chronic oxygen -Check echocardiogram and consult pulmonary if no identifable reason for hypoxia found -Continue with supportive care -Add incentive spirometer Urinary tract infection -Present on admission -Continue ceftriaxone unable to be used as patient refuses IV, Omnicef started -Await culture Bipolar disorder with acute psychosis -Psychiatry recommendations appreciated -Continue with Abilify and trazodone Diabetes mellitus type 2 -Continue with sliding scale -Follow blood sugars -A1c is 9 -Hold metformin -On discharge likely will need metformin plus at least one additional oral medication Hypertension, controlled -Continue with Cozaar and hydrochlorothiazide Morbid obesity with BMI 43.9 -Outpatient structured weight loss HLD - lipitor increasec to 40 mg DVT prophylaxis: SCDs Discussed with: Patient, nursing Anticipated discharge: 1-[address]: Patient will need to return to mental health unit as she was brought in on a pickup order for noncompliance with medications A total of 35 minutes was spent on the care of this complex patient more than 50% of the time was spent in counseling and care coordination.
[2020-02-25 17:09] LABS: Glucose,Whole Blood 160 mg/dL (75-99)
[2020-02-25] MEDS: ATORVASTATIN 40 MG TAB PO SCH (20:29)
[2020-02-25] MEDS: traZODone HCL 50 MG TAB PO SCH (20:29)
[2020-02-25] MEDS: CEFDINIR 300 MG CAP PO SCH (20:29)
[2020-02-25 20:30] LABS: Glucose,Whole Blood 209 mg/dL (75-99)
[2020-02-26] MEDS: SYMBICORT 160-4.5 MCG INHALER INHALATION SCH ×3 (07:09→19:58)
[2020-02-26 07:35] LABS: Glucose,Whole Blood 162 mg/dL (75-99)
[2020-02-26] MEDS: ALBUTEROL HFA INHALER INHALATION PRN ×3 (07:43→15:47)
--- NOTE | 2020-02-26 08:43 | XR ---
EXAMINATION TYPE: XR chest 1V portable DATE OF EXAM: 02/26/2020 HISTORY: pneumonia. REFERENCE: Previous study dated 02/24/2020. FINDINGS: The patient has taken a poor inspiration. Allowing for this, lungs appear clear. Heart size upper limits of normal. Pleural spaces are clear. IMPRESSION: LIMITED EXAMINATION SHOWING NO DEFINITE ACUTE INTRATHORACIC ABNORMALITY.
[2020-02-26] MEDS: INSULIN ASPART (NovoLOG) 100 UNIT/ML VIAL SQ SCH ×5 (09:20→22:02)
[2020-02-26] MEDS: CEFDINIR 300 MG CAP PO SCH (09:20)
[2020-02-26] MEDS: ARIPiprazole 5 MG TAB PO SCH ×2 (09:20→09:27)
[2020-02-26 09:21] LABS: Anisocytosis Slight; HCT 36.3 % (34.0-46.0); HGB 11.7 gm/dL (11.4-16.0); Hypochromasia Moderate; MCH 29.7 pg (25.0-35.0); MCHC 32.2 g/dL (31.0-37.0); MCV 92.1 fL (80.0-100.0); Platelet Count 268 k/uL (150-450); RBC 3.94 m/uL (3.80-5.40); RDW 16.7 % (11.5-15.5); WBC 7.2 k/uL (3.8-10.6)
[2020-02-26] MEDS: LOSARTAN-HCTZ 50-12.5 MG 1 EACH TAB PO SCH ×2 (09:21→09:27)
[2020-02-26 09:32] LABS: African American GFR (CKD) >90 (>60 ml/min/1.73 sqM); Anion Gap 7 mmol/L; Blood Urea Nitrogen 11 mg/dL (7-17); Calcium 8.8 mg/dL (8.4-10.2); Carbon Dioxide 33 mmol/L (22-30); Chloride 95 mmol/L (98-107); Glucose 265 mg/dL (74-99); Non-African American GFR(CKD) >90 (>60 ml/min/1.73 sqM); Sodium 135 mmol/L (137-145)
[2020-02-26] MEDS ORDERED: MORPHINE SULFATE 2 MG/ML SYRINGE IVP STA (10:40)
[2020-02-26 10:56] LABS: ABG Base Excess 9.5 mmol/L; ABG HCO3 34 mmol/L (21-25); ABG Oxygen Saturation 95.1 % (94-97); ABG PCO2 53 mmHg (35-45); ABG PH 7.42 (7.35-7.45); ABG PO2 74 mmHg (83-108); ABG TCO2 36 mmol/L (19-24); Allen Test Performed? Yes
--- NOTE | 2020-02-26 11:26 | US ---
EXAMINATION TYPE: US venous doppler duplex LE DATE OF EXAM: 02/26/2020 11:19 AM COMPARISON: NONE CLINICAL HISTORY: edema, pain. Poor historian. Patient uncooperative. SIDE PERFORMED: Bilateral TECHNIQUE: The lower extremity deep venous system is examined utilizing real time linear array sonog casandra with graded compression, doppler sonography and color-flow sonography. VESSELS IMAGED: External Iliac Vein (EIV) Common Femoral Vein Deep Femoral Vein Greater Saphenous Vein * Femoral Vein Popliteal Vein Small Saphenous Vein * Proximal Calf Veins (* superficial vessels) Right Leg: Negative for DVT. Compression images not taken due to patient being uncooperative and co uldn't tolerate. Left Leg: Negative for DVT No popliteal fossa lesion is seen. IMPRESSION: LIMITED EXAMINATION ESPECIALLY ON THE RIGHT DEMONSTRATING NO DEFINITE THROMBUS AT THIS TIME.
[2020-02-26 11:34] LABS: Glucose,Whole Blood 198 mg/dL (75-99)
--- NOTE | 2020-02-26 12:18 | CT ---
EXAMINATION TYPE: CT angio chest DATE OF EXAM: 02/26/2020 12:11 PM COMPARISON: None HISTORY: Chest pain. CT DLP: 785.1 mGycm Automated exposure control for dose reduction was used. CONTRAST: CTA scan of the thorax is performed without and with IV Contrast, patient injected with 100 ml mL of Isovue 370, pulmonary embolism protocol. . FINDINGS: There are emphysematous changes throughout the lungs. There is dependent atelectasis at the lung bases. There is some atelectatic change adjacent to the major fissure on the right. There is no significant axillary, internal mammary, mediastinal or hilar adenopathy the heart is mild ly enlarged. There is a small splenule within the hilus of the spleen. Visualized portions of the upper abdomen ar e otherwise unremarkable. IMPRESSION: THIS EXAMINATION IS NEGATIVE FOR PULMONARY EMBOLUS.
[2020-02-26] MEDS: NICOTINE 21MG/24HR PATCH TRANSDERM SCH (14:02)
--- NOTE | 2020-02-26 15:32 | P.PN ---
Subjective Progress Note Date: 02/26/20 (delayed charting seen at 1045) Principal diagnosis: hypoxia Patient is a 60-year-old female with bipolar disorder poorly controlled, diabetes, and hypertension who was initially on the inpatient mental health unit for not taking her medications for several days when she was noted to be persistently hypoxic and subsequently was transferred to the medical floor for possible obesity hypoventilation syndrome. On arrival to the mental health unit her initial oxygenation had been 95% on room air and her vital signs have been within normal limits. She was then started on 2 L nasal cannula noted to have an oxygenation saturation of 88%. Her initial laboratory analysis showed sodium of 131, chloride 95, carbon dioxide 32, glucose 179, A1c 9, triglycerides 283 with a total cholesterol 201. Urine drug screen was negative. Coronavirus PCR was negative. Urinalysis showed large leukocyte esterase with 63 white blood cells and 4 squamous epithelial cells. Chest x-ray showed scarring at the left lung base. There is concern for possible obesity hypoventilation syndrome. She was given a trial of IV Lasix. She is a heavy smoker but was not noted to have any concerns for bronchospasm. She was started on Rocephin for possible urinary tract infection. D-dimer was 0.31 essentially ruling out pulmonary embolism. She continued to the hypoxic on room air. On the morning of 02/25 she was 78% on room air. Patient seen and examined at bedside. She appears more confused today and is babbling off into space. She is complaining of some left leg and hip pain. She denies chest pain or shortness of breath. She denies nausea or vomiting. Objective - Vital Signs Vital signs: Vital Signs Temp 98.4 F 02/26/20 15:00 Pulse 71 02/26/20 15:00 Resp 16 02/26/20 15:00 BP 107/66 02/26/20 15:00 Pulse Ox 94 L 02/26/20 15:06 Intake & Output 02/25/20 02/26/20 02/26/20 18:59 06:59 18:59 Other: # Voids 2 4 3 - Exam General: non toxic, no distress, appears older than stated age Derm: warm, dry Head: atraumatic, normocephalic, symmetric Eyes: EOMI, no lid lag, anicteric sclera Mouth: no lip lesion, mucus membranes moist Cardiovascular: S1S2 reg, no murmur, positive posterior tibial pulse bilateral, Lungs: Decreased breath sounds bilateral likely secondary to body habitus, no wheezing, no rhonchi, no rales , no accessory muscle use Abdominal: soft, nontender to palpation, no guarding, no appreciable organomegaly Ext: no gross muscle atrophy, 2+ edema, no contractures Neuro: CN II-XI grossly intact, no focal neuro deficits Psych: Alert, oriented to self, garbled speech, difficulty concentrating - Labs CBC & Chem 7: 02/26/20 08:33 02/26/20 08:33 Labs: Abnormal Lab Results - Last 24 Hours (Table) 02/25/20 02/25/20 02/26/20 Range/Units 17:07 20:29 07:33 RDW (11.5-15.5) % ABG pCO2 (35-45) mmHg ABG pO2 (83-108) mmHg ABG HCO3 (21-25) mmol/L ABG Total CO2 (19-24) mmol/L Sodium (137-145) mmol/L Chloride (98-107) mmol/L Carbon Dioxide (22-30) mmol/L Creatinine (0.52-1.04) mg/dL Glucose (74-99) mg/dL POC Glucose (mg/dL) 160 H 209 H 162 H (75-99) mg/dL 02/26/20 02/26/20 02/26/20 Range/Units 08:33 08:33 10:54 RDW 16.7 H (11.5-15.5) % ABG pCO2 53 H (35-45) mmHg ABG pO2 74 L (83-108) mmHg ABG HCO3 34 H (21-25) mmol/L ABG Total CO2 36 H (19-24) mmol/L Sodium 135 L (137-145) mmol/L Chloride 95 L (98-107) mmol/L Carbon Dioxide 33 H (22-30) mmol/L Creatinine 0.47 L (0.52-1.04) mg/dL Glucose 265 H (74-99) mg/dL POC Glucose (mg/dL) (75-99) mg/dL 02/26/20 Range/Units 11:33 RDW (11.5-15.5) % ABG pCO2 (35-45) mmHg ABG pO2 (83-108) mmHg ABG HCO3 (21-25) mmol/L ABG Total CO2 (19-24) mmol/L Sodium (137-145) mmol/L Chloride (98-107) mmol/L Carbon Dioxide (22-30) mmol/L Creatinine (0.52-1.04) mg/dL Glucose (74-99) mg/dL POC Glucose (mg/dL) 198 H (75-99) mg/dL Microbiology - Last 24 Hours (Table) 02/25/20 07:30 Urine Culture - Final Urine,Voided Assessment and Plan Assessment: Acute hypoxic respiratory failure -No cause for acute hypoxia was able to be identified. Patient does not have active bronchospasm, BNP was normal excluding the possibility of heart failure, d-dimer was negative reducing the chanc of PE. However with know other identified source CTA chest ordered and reviewed and was negative for pulmonary embolism but did show emphysematous changes consistent with the patients known extensive smoking history. She underwent ABG which showed chronic hypercapnia. With these 2 findings likely that patient has underlying COPD worsened by obesity hypoventilation syndrome. She will likely need chronic oxygen. D/W pulm onary no additional inpatient work-up warranted -Await echocardiogram -Continue with supportive care -Add incentive spirometer Probable COPD - Will start steroid to hopr to improve hypoxemia - continue with symbicort - would benefit from outpatient PFT for formal daignosis - prn albuterl Bipolar disorder with acute psychosis -Psychiatry recommendations appreciated -Continue with Abilify and trazodone -Will likely need to return to psych with O2 Diabetes mellitus type 2 -Continue with sliding scale (patient refusing) -Follow blood sugars -A1c is 9 -Hold metformin X 2 days with CTA chest -On discharge likely will need metformin plus at least one additional oral medication Hypertension, controlled -Continue with Cozaar and hydrochlorothiazide Morbid obesity with BMI 43.9 -Outpatient structured weight loss HLD - lipitor increasec to 40 mg Urinary tract infection, ruled out with negative culture DVT prophylaxis: SCDs Discussed with: Patient, nursing Anticipated discharge: in AM Anticipated discharge place: Patient will need to return to mental health unit as she was brought in on a pickup order for noncompliance with medications A total of 35 minutes was spent on the care of this complex patient more than 50% of the time was spent in counseling and care coordination.
[2020-02-26] MEDS: predniSONE 20 MG TAB PO SCH (16:21)
[2020-02-26 16:59] LABS: Glucose,Whole Blood 187 mg/dL (75-99)
[2020-02-26 20:54] LABS: Glucose,Whole Blood 311 mg/dL (75-99)
[2020-02-26] MEDS: traZODone HCL 50 MG TAB PO SCH (21:41)
[2020-02-26] MEDS: ATORVASTATIN 40 MG TAB PO SCH (21:43)
[2020-02-27 07:49] LABS: Glucose,Whole Blood 213 mg/dL (75-99)
--- NOTE | 2020-02-27 08:00 | ECHOF ---
Referral Reason:CHF MEASUREMENTS -------- HEIGHT: 165.1 cm WEIGHT: 119.3 kg BP: 95/60 RVIDd: 3.7 cm (< 3.3) IVSd: 1.4 cm (0.6 - 1.1) LVIDd: 5.0 cm (3.9 - 5.3) LVPWd: 1.3 cm (0.6 - 1.1) IVSs: 1.6 cm LVIDs: 3.9 cm LVPWs: 1.6 cm LAESV Index (A-L): 26.95 ml/m Ao Diam: 3.0 cm (2.0 - 3.7) AV Cusp: 2.0 cm (1.5 - 2.6) MV EXCURSION: 20.824 mm (> 18.000) MV EF SLOPE: 101 mm/s (70 - 150) EPSS: 0.6 cm MV E Hossein: 1.18 m/s MV DecT: 254 ms MV A Hossein: 0.87 m/s MV E/A Ratio: 1.35 RAP: 20.00 mmHg RVSP: 38.14 mmHg FINDINGS -------- Sinus rhythm. This was a technically adequate study. The left ventricular size is normal. There is moderate concentric left ventricular hypertrophy. O verall left ventricular systolic function is normal with, an EF between 55 - 60 %. The diastolic fi lling pattern is normal for the age of the patient 14.75. The right ventricle is mild to moderately enlarged. Normal LA size by volume 22+/-6 ml/m2. The right atrium is mildly enlarged. Interatrial and interventricular septum intact. There is mild aortic valve sclerosis. There is no evidence of aortic regurgitation. There is no e vidence of aortic stenosis. Mild mitral regurgitation is present. Mild tricuspid regurgitation present. There is mild pulmonary hypertension. The right ventricular systolic pressure, as measured by Doppler, is 38.14mmHg. There is no pulmonic regurgitation present. The aortic root size is normal. The inferior vena cava is dilated with no significant inspiratory collapse which is consistent estima ermelinda right atrial pressure of >20 mmHg. There is no pericardial effusion. CONCLUSIONS -------- 1. Sinus rhythm. 2. This was a technically adequate study. 3. The left ventricular size is normal. 4. There is moderate concentric left ventricular hypertrophy. 5. Overall left ventricular systolic function is normal with, an EF between 55 - 60 %. 6. The diastolic filling pattern is normal for the age of the patient 14.75 7. The right ventricle is mild to moderately enlarged. 8. Normal LA size by volume 22+/-6 ml/m2. 9. The right atrium is mildly enlarged. 10. Interatrial and interventricular septum intact. 11. There is mild aortic valve sclerosis. 12. There is no evidence of aortic regurgitation. 13. There is no evidence of aortic stenosis. 14. Mild mitral regurgitation is present. 15. Mild tricuspid regurgitation present. 16. There is mild pulmonary hypertension. 17. The right ventricular systolic pressure, as measured by Doppler, is 38.14mmHg. 18. There is no pulmonic regurgitation present. 19. The aortic root size is normal. 20. The inferior vena cava is dilated with no significant inspiratory collapse which is consistent es timated right atrial pressure of >20 mmHg. 21. There is no pericardial effusion. LIFE SUPPORT TECHNICIAN: Emma Porras RDCS
[2020-02-27] MEDS: NICOTINE 21MG/24HR PATCH TRANSDERM SCH (08:21)
[2020-02-27] MEDS: SYMBICORT 160-4.5 MCG INHALER INHALATION SCH ×2 (08:22→21:11)
[2020-02-27] MEDS: LOSARTAN-HCTZ 50-12.5 MG 1 EACH TAB PO SCH (08:25)
[2020-02-27] MEDS: ARIPiprazole 5 MG TAB PO SCH (08:25)
[2020-02-27] MEDS: predniSONE 20 MG TAB PO SCH (08:25)
[2020-02-27] MEDS: INSULIN ASPART (NovoLOG) 100 UNIT/ML VIAL SQ SCH ×4 (08:25→21:39)
[2020-02-27 12:01] LABS: Glucose,Whole Blood 202 mg/dL (75-99)
--- NOTE | 2020-02-27 12:04 | P.PN ---
Progress Note - Text Progress Note Date: 02/27/20 medically optimized for discharge to mental health, will need chronic oxygen
[2020-02-27 17:15] LABS: Glucose,Whole Blood 190 mg/dL (75-99)
--- NOTE | 2020-02-27 18:22 | P.DS ---
Providers Date of admission: 02/24/20 10:26 Expected date of discharge: 02/27/20 Attending physician: Meredith Newman MD Consults: 02/24/20 15:15 Consult Physician Routine Consulting Provider: Isrrael Barnard Consult Reason/Comments: Bipolar Disorder, acute psychosis Do you want consulting provider notified?: Yes 02/26/20 10:50 Consult Physician Routine Consulting Provider: Reginald Souza Consult Reason/Comments: hallucinating and refusing meds/care. Do you want consulting provider notified?: Yes Primary care physician: Stated None Hospital Course: Discharge Diagnosis: Probable COPD Acute hypoxic respiratory failure, suspect to be chronic DM 2 Bipolar disorder with psychosis and active hallucinations HTN HLD UTI, ruled out Hospital Course: Patient is a 60-year-old female with bipolar disorder poorly controlled, diabetes, and hypertension who was initially on the inpatient mental health unit for not taking her medications for several days when she was noted to be persistently hypoxic and subsequently was transferred to the medical floor for possible obesity hypoventilation syndrome. On arrival to the mental health unit her initial oxygenation had been 95% on room air and her vital signs have been within normal limits. She was then started on 2 L nasal cannula noted to have an oxygenation saturation of 88%. Her initial laboratory analysis showed sodium of 131, chloride 95, carbon dioxide 32, glucose 179, A1c 9, triglycerides 283 with a total cholesterol 201. Urine drug screen was negative. Coronavirus PCR was negative. Urinalysis showed large leukocyte esterase with 63 white blood cells and 4 squamous epithelial cells. Chest x-ray showed scarring at the left lung base. There is concern for possible obesity hypoventilation syndrome. She was given a trial of IV Lasix. She is a heavy smoker but was not noted to have any concerns for bronchospasm. She was started on Rocephin for possible urinary tract infection. D-dimer was 0.31 essentially ruling out pulmonary embolism. She continued to the hypoxic on room air. On the morning of 02/25 she was 78% on room air. She underwent a CT of the chest which did not reveal any pulmonary emboli but did show diffuse emphysematous changes. She underwent an ABG which confirmed compensated hypercapnia. With this it was felt that she likely has COPD. She was started on bronchodilators and prednisone. She was determined medically stable for discharge. She was again evaluated by psychiatry who recommended geriatric psych placement. Patient seen and examined at bedside. Thinks she is getting a blood transfusion, that her kids are ciricling her head and can hear her Vital signs reviewed and stable. General: non toxic, no distress, appears older than stated age, obese, disheveled, malodorous Derm: warm, dry Head: atraumatic, normocephalic, symmetric Eyes: EOMI, no lid lag, anicteric sclera Mouth: no lip lesion, mucus membranes moist Cardiovascular: S1S2 reg, no murmur, positive posterior tibial pulse bilateral, Lungs: Decreased bs bilateral, no rhonchi, no rales , no accessory muscle use Abdominal: soft, nontender to palpation, no guarding, no appreciable organomegaly Ext: no gross muscle atrophy, 2+ edema, no contractures Psych: Alert, oriented, anxious, continually twitching right had A total of 35 minutes of time were spent preparing this complex discharge summary . Patient Condition at Discharge: Stable Plan - Discharge Summary Discharge Rx Participant: Yes New Discharge Prescriptions: New ARIPiprazole [Abilify] 2.5 mg PO DAILY tab predniSONE [Deltasone] 60 mg PO DAILY 5 Days tab traZODone HCL [Desyrel] 50 mg PO HS tab Nicotine 21Mg/24Hr Patch [Habitrol] 1 patch TRANSDERM DAILY patch Budesonide-Formot 160-4.5 Mcg [Symbicort 160-4.5 Mcg Inhaler] 2 puff INHALATION RT-BID puff Albuterol Inhaler [Ventolin Hfa Inhaler] 2 puff INHALATION RT-QID PRN puff PRN Reason: Shortness Of Breath Or Wheezing Continue Ergocalciferol [Vitamin D2 (DRISDOL)] 50,000 unit PO FR metFORMIN HCL ER [Glucophage Xr] 1,000 mg PO DAILY@1700 Atorvastatin [Lipitor] 20 mg PO HS@2100 Losartan/Hydrochlorothiazide [Losartan-Hctz 100-25 mg Tab] 1 tab PO DAILY@ 0800 Discharge Medication List Ergocalciferol [Vitamin D2 (DRISDOL)] 50,000 unit PO FR 09/02/19 [History] metFORMIN HCL ER [Glucophage Xr] 1,000 mg PO DAILY@1700 09/02/19 [History] Atorvastatin [Lipitor] 20 mg PO HS@2100 02/23/20 [History] Losartan/Hydrochlorothiazide [Losartan-Hctz 100-25 mg Tab] 1 tab PO DAILY@0800 02/23/20 [History] ARIPiprazole [Abilify] 2.5 mg PO DAILY tab 02/27/20 [Rx] Albuterol Inhaler [Ventolin Hfa Inhaler] 2 puff INHALATION RT-QID PRN puff 02/27/20 [Rx] Budesonide-Formot 160-4.5 Mcg [Symbicort 160-4.5 Mcg Inhaler] 2 puff INHALATION RT-BID puff 02/27/20 [Rx] Nicotine 21Mg/24Hr Patch [Habitrol] 1 patch TRANSDERM DAILY patch 02/27/20 [Rx] predniSONE [Deltasone] 60 mg PO DAILY 5 Days tab 02/27/20 [Rx] traZODone HCL [Desyrel] 50 mg PO HS tab 02/27/20 [Rx] Activity/Diet/Wound Care/Special Instructions: Activity: as tolerated Diet: carb consistent Special Instructions: Required oxygen / snf will transport on d/c. Please call #[phone]. Prednisone for 5 days Discharge Disposition: TRANSFER TO PSYCH HOSP/UNIT
[2020-02-27 21:06] LABS: Glucose,Whole Blood 227 mg/dL (75-99)
[2020-02-27] MEDS: traZODone HCL 50 MG TAB PO SCH (21:38)
[2020-02-27] MEDS: ATORVASTATIN 40 MG TAB PO SCH (21:39)
[2020-02-28 07:03] LABS: Glucose,Whole Blood 206 mg/dL (75-99)
[2020-02-28] MEDS: LOSARTAN-HCTZ 50-12.5 MG 1 EACH TAB PO SCH (07:17)
[2020-02-28] MEDS: predniSONE 20 MG TAB PO SCH (07:18)
[2020-02-28] MEDS: ARIPiprazole 5 MG TAB PO SCH (07:19)
[2020-02-28] MEDS: NICOTINE 21MG/24HR PATCH TRANSDERM SCH (07:19)
[2020-02-28] MEDS: INSULIN ASPART (NovoLOG) 100 UNIT/ML VIAL SQ SCH ×2 (07:19→11:59)
[2020-02-28] MEDS: SYMBICORT 160-4.5 MCG INHALER INHALATION SCH (08:27)
[2020-02-28 11:24] VITALS: BP 167/77; PULSE 72; RESP 17; TEMP 98.3
[2020-02-28 11:33] LABS: Glucose,Whole Blood 315 mg/dL (75-99)
--- NOTE | 2020-02-28 14:46 | P.DS ---
Providers Date of admission: 02/24/20 10:26 Expected date of discharge: 02/28/20 Attending physician: Meredith Newman MD Consults: 02/24/20 15:15 Consult Physician Routine Consulting Provider: Isrrael Barnard Consult Reason/Comments: Bipolar Disorder, acute psychosis Do you want consulting provider notified?: Yes 02/26/20 10:50 Consult Physician Routine Consulting Provider: Reginald Souza Consult Reason/Comments: hallucinating and refusing meds/care. Do you want consulting provider notified?: Yes Primary care physician: Stated None Hospital Course: Discharge Diagnosis: Probable COPD Acute hypoxic respiratory failure, suspect to be chronic DM 2 Bipolar disorder with psychosis and active hallucinations HTN HLD UTI, ruled out Hospital Course: Patient is a 60-year-old female with bipolar disorder poorly controlled, diabetes, and hypertension who was initially on the inpatient mental health unit for not taking her medications for several days when she was noted to be persistently hypoxic and subsequently was transferred to the medical floor for possible obesity hypoventilation syndrome. On arrival to the mental health unit her initial oxygenation had been 95% on room air and her vital signs have been within normal limits. She was then started on 2 L nasal cannula noted to have an oxygenation saturation of 88%. Her initial laboratory analysis showed sodium of 131, chloride 95, carbon dioxide 32, glucose 179, A1c 9, triglycerides 283 with a total cholesterol 201. Urine drug screen was negative. Coronavirus PCR was negative. Urinalysis showed large leukocyte esterase with 63 white blood cells and 4 squamous epithelial cells. Chest x-ray showed scarring at the left lung base. There is concern for possible obesity hypoventilation syndrome. She was given a trial of IV Lasix. She is a heavy smoker but was not noted to have any concerns for bronchospasm. She was started on Rocephin for possible urinary tract infection. D-dimer was 0.31 essentially ruling out pulmonary embolism. She continued to the hypoxic on room air. On the morning of 02/25 she was 78% on room air. She underwent a CT of the chest which did not reveal any pulmonary emboli but did show diffuse emphysematous changes. She underwent an ABG which confirmed compensated hypercapnia. With this it was felt that she likely has COPD. She was started on bronchodilators and prednisone. She was determined medically stable for discharge. She was again evaluated by psychiatry who recommended geriatric psych placement. This was obtained on 02/28/2020. Patient seen and examined at bedside. She is tired and wants to be left alone. She denies chest pain and shortness of breath. Wants to go back to sleep, states that she was up all night. Vital signs reviewed and stable. General: non toxic, no distress, appears older than stated age, obese, disheveled Derm: warm, dry Head: atraumatic, normocephalic, symmetric Cardiovascular: S1S2 reg, no murmur, positive posterior tibial pulse bilateral, Lungs: Decreased bs bilateral, no rhonchi, no rales , no accessory muscle use Abdominal: soft, nontender to palpation, no guarding, no appreciable organomegaly Ext: no gross muscle atrophy, 1+ edema, no contractures Psych: Alert, oriented, anxious, continually twitching right had A total of 35 minutes of time were spent preparing this complex discharge summary . Patient Condition at Discharge: Stable Plan - Discharge Summary Discharge Rx Participant: Yes New Discharge Prescriptions: New ARIPiprazole [Abilify] 2.5 mg PO DAILY tab predniSONE [Deltasone] 60 mg PO DAILY 5 Days tab traZODone HCL [Desyrel] 50 mg PO HS tab Nicotine 21Mg/24Hr Patch [Habitrol] 1 patch TRANSDERM DAILY patch Budesonide-Formot 160-4.5 Mcg [Symbicort 160-4.5 Mcg Inhaler] 2 puff INHALATION RT-BID puff Albuterol Inhaler [Ventolin Hfa Inhaler] 2 puff INHALATION RT-QID PRN puff PRN Reason: Shortness Of Breath Or Wheezing Continue Ergocalciferol [Vitamin D2 (DRISDOL)] 50,000 unit PO FR metFORMIN HCL ER [Glucophage Xr] 1,000 mg PO DAILY@1700 Atorvastatin [Lipitor] 20 mg PO HS@2100 Losartan/Hydrochlorothiazide [Losartan-Hctz 100-25 mg Tab] 1 tab PO DAILY@0800 Discharge Medication List Ergocalciferol [Vitamin D2 (DRISDOL)] 50,000 unit PO FR 09/02/19 [History] metFORMIN HCL ER [Glucophage Xr] 1,000 mg PO DAILY@1700 09/02/19 [History] Atorvastatin [Lipitor] 20 mg PO HS@2100 02/23/20 [History] Losartan/Hydrochlorothiazide [Losartan-Hctz 100-25 mg Tab] 1 tab PO DAILY@0800 02/23/20 [History] ARIPiprazole [Abilify] 2.5 mg PO DAILY tab 02/27/20 [Rx] Albuterol Inhaler [Ventolin Hfa Inhaler] 2 puff INHALATION RT-QID PRN puff 02/27/20 [Rx] Budesonide-Formot 160-4.5 Mcg [Symbicort 160-4.5 Mcg Inhaler] 2 puff INHALATION RT-BID puff 02/27/20 [Rx] Nicotine 21Mg/24Hr Patch [Habitrol] 1 patch TRANSDERM DAILY patch 02/27/20 [Rx] predniSONE [Deltasone] 60 mg PO DAILY 5 Days tab 02/27/20 [Rx] traZODone HCL [Desyrel] 50 mg PO HS tab 02/27/20 [Rx] Activity/Diet/Wound Care/Special Instructions: Activity: as tolerated Diet: carb consistent Special Instructions: Required oxygen 19/05 skilled nursing will transport on d/c. Please call #[phone]. Prednisone for 5 days Discharge Disposition: TRANSFER TO PSYCH HOSP/UNIT
== END 2020-02-28 12:59 | DRG 189 ==
LOC: 4SSUR 10:26
PROVIDERS: ADMIT Internal Medicine; ATTEND Internal Medicine
DX: J96.21 Acute and chronic respiratory failure with hypoxia (principal); E66.2 Morbid (severe) obesity with alveolar hypoventilation; F23 Brief psychotic disorder; Z68.41 Body mass index [BMI] 40.0-44.9, adult; J44.9 Chronic obstructive pulmonary disease, unspecified; F31.9 Bipolar disorder, unspecified; E11.9 Type 2 diabetes mellitus without complications; F19.21 Other psychoactive substance dependence, in remission; I10 Essential (primary) hypertension; F17.210 Nicotine dependence, cigarettes, uncomplicated; G47.00 Insomnia, unspecified; E78.5 Hyperlipidemia, unspecified; M25.552 Pain in left hip; Z79.84 Long term (current) use of oral hypoglycemic drugs; Z79.899 Other long term (current) drug therapy; Z91.14 Patient's other noncompliance with medication regimen
CPT/HCPCS: 36600; 71045; 71275; 80048; 80053; 82805; 83880; 84484; 85025; 85027; 87086; 93005; 93306; 93970; 94640

== ENCOUNTER 2020-04-20 12:35 | Inpatient (IN) | payer MEDICARE, MEDICAID ==
--- NOTE | 2020-04-20 12:54 | ED ---
General Adult HPI - General Stated complaint: Mental health Time Seen by Provider: 04/20/20 12:39 Source: patient, RN notes reviewed, old records reviewed Limitations: altered mental status - History of Present Illness Initial comments: Patient is a 60-year-old female presenting to the emergency Department for mental health eval. Patient is a poor historian and has flight of ideas. Patient denies any physical complaints. Patient admits that her mouth feels dry. Patient denies any suicidal ideation. Patient is a poor historian. Patient complains that people are switching parts on her feet. - Related Data Home Medications Medication Instructions Recorded Confirmed Ergocalciferol [Vitamin D2 50,000 unit PO FR 09/02/19 04/20/20 (DRISDOL)] metFORMIN HCL ER [Glucophage Xr] 1,000 mg PO DAILY 09/02/19 04/20/20 Atorvastatin [Lipitor] 20 mg PO HS@2100 02/23/20 04/20/20 Losartan/Hydrochlorothiazide 1 tab PO DAILY@0800 02/23/20 04/20/20 [Losartan-Hctz 100-25 mg Tab] Acetaminophen [Tylenol] 650 mg PO Q6H PRN 04/20/20 04/20/20 Amantadine HCl [Amantadine] 100 mg PO BID 04/20/20 04/20/20 Aspirin EC [Ecotrin] 325 mg PO DAILY PRN 04/20/20 04/20/20 Beneprotein Powder 7 gram PO DAILY 04/20/20 04/20/20 Divalproex Sodium [Depakote 125 mg PO BID 04/20/20 04/20/20 Sprinkle] Docusate [Colace] 100 mg PO DAILY PRN 04/20/20 04/20/20 Glimepiride [Amaryl] 1 mg PO AC-BID 04/20/20 04/20/20 Ibuprofen [Motrin Ib] 200 mg PO Q8H PRN 04/20/20 04/20/20 Jay-Tin Liq 30 ml PO DAILY PRN 04/20/20 LORazepam [Ativan] 2 mg PO HS 04/20/20 04/20/20 Linagliptin [Tradjenta] 5 mg PO DAILY 04/20/20 04/20/20 Loperamide HCl [Imodium A-D] 2 mg PO DAILY PRN 04/20/20 04/20/20 Magnesium Hydroxide [Milk of 2,400 mg PO DAILY PRN 04/20/20 04/20/20 Magnesia] Pseudoephedrine HCl [Sudogest] 60 mg PO DAILY PRN 04/20/20 04/20/20 Psyllium Husk (with Sugar) 1 dose PO DAILY PRN 04/20/20 04/20/20 [Metamucil Powder] Robafen Syp 100/5ml 10 ml PO Q4H PRN 04/20/20 04/20/20 diphenhydrAMINE [Benadryl] 25 mg PO QID PRN 04/20/20 04/20/20 risperiDONE [RisperDAL] 4 mg PO HS 04/20/20 04/20/20 Previous Rx's Medication Instructions Recorded Albuterol Inhaler [Ventolin Hfa 2 puff INHALATION RT-QID PRN puff 02/27/20 Inhaler] Budesonide-Formot 160-4.5 Mcg 2 puff INHALATION RT-BID puff 02/27/20 [Symbicort 160-4.5 Mcg Inhaler] Allergies Allergy/AdvReac Type Severity Reaction Status Date / Time honey Allergy Unknown Verified 04/20/20 12:52 latex Allergy Unknown Verified 04/20/20 12:52 risperidone [From Risperdal] Allergy Unknown Verified 04/20/20 13:04 whey Allergy Unknown Verified 04/20/20 12:52 Review of Systems ROS Statement: Those systems with pertinent positive or pertinent negative responses have been documented in the HPI. ROS Other: All systems not noted in ROS Statement are negative. Constitutional: Denies: fever Eyes: Denies: eye pain ENT: Denies: ear pain Respiratory: Denies: cough Cardiovascular: Denies: chest pain Endocrine: Denies: fatigue Gastrointestinal: Denies: abdominal pain Genitourinary: Denies: dysuria Musculoskeletal: Denies: back pain Skin: Denies: rash Neurological: Denies: weakness Psychiatric: Reports: visual hallucinations. Denies: suicidal thoughts Past Medical History Past Medical History: No Reported History, Diabetes Mellitus, Hypertension History of Any Multi-Drug Resistant Organisms: None Reported Past Surgical History: Section Past Anesthesia/Blood Transfusion Reactions: No Reported Reaction Past Psychological History: Schizophrenia Smoking Status: Current every day smoker Past Alcohol Use History: None Reported Past Drug Use History: None Reported - Past Family History family Family Medical History: Unable to Obtain General Exam Limitations: no limitations General appearance: alert, in no apparent distress Head exam: Present: normocephalic Eye exam: Present: normal appearance ENT exam: Present: mucous membranes dry Neck exam: Present: normal inspection Respiratory exam: Present: normal lung sounds bilaterally Cardiovascular Exam: Present: regular rate, normal rhythm GI/Abdominal exam: Present: soft. Absent: distended, tenderness Extremities exam: Present: pedal edema (+1 bilateral), other (Poor hygiene) Back exam: Present: normal inspection Neurological exam: Present: alert Expanded Focused psych exam: Present: restlessness, flight of ideas, loose associations Skin exam: Present: erythema (Trace erythema left anterior regan) Course Vital Signs 04/20/20 12:53 Temperature 99.4 F Pulse Rate 95 Respiratory 18 Rate Blood Pressure 128/74 O2 Sat by Pulse 94 L Oximetry Medical Decision Making - Medical Decision Making Patient does have possible minimal cellulitis of left anterior regan. There is also questionable urinary tract infection. Recommend Keflex treatment and clear for the health evaluation. Patient seen by mental health services with plans for admission - Lab Data Result diagrams: 04/20/20 12:59 04/20/20 12:59 Lab Results 04/20/20 04/20/20 04/20/20 Range/Units 12:59 12:59 13:09 WBC 9.3 (3.8-10.6) k/uL RBC 4.15 (3.80-5.40) m/uL Hgb 12.3 (11.4-16.0) gm/dL Hct 36.6 (34.0-46.0) % MCV 88.2 (80.0-100.0) fL MCH 29.6 (25.0-35.0) pg MCHC 33.6 (31.0-37.0) g/dL RDW 16.8 H (11.5-15.5) % Plt Count 307 (150-450) k/uL Neutrophils % 75 % Lymphocytes % 17 % Monocytes % 5 % Eosinophils % 1 % Basophils % 1 % Neutrophils # 7.0 (1.3-7.7) k/uL Lymphocytes # 1.6 (1.0-4.8) k/uL Monocytes # 0.4 (0-1.0) k/uL Eosinophils # 0.1 (0-0.7) k/uL Basophils # 0.1 (0-0.2) k/uL Anisocytosis Slight Sodium 134 L (137-145) mmol/L Potassium 3.6 (3.5-5.1) mmol/L Chloride 98 (98-107) mmol/L Carbon Dioxide 27 (22-30) mmol/L Anion Gap 9 mmol/L BUN 11 (7-17) mg/dL Creatinine 0.42 L (0.52-1.04) mg/dL Est GFR (CKD-EPI)AfAm >90 (>60 ml/min/1.73 sqM) Est GFR (CKD-EPI)NonAf >90 (>60 ml/min/1.73 sqM) Glucose 141 H (74-99) mg/dL Calcium 9.4 (8.4-10.2) mg/dL Urine Color Urine Appearance (Clear) Urine pH (5.0-8.0) Ur Specific [place] (1.001-1.035) Urine Protein (Negative) Urine Glucose (UA) (Negative) Urine Ketones (Negative) Urine Blood (Negative) Urine Nitrite (Negative) Urine Bilirubin (Negative) Urine Urobilinogen (<2.0) mg/dL Ur Leukocyte Esterase (Negative) Urine RBC (0-5) /hpf Urine WBC (0-5) /hpf Ur Squamous Epith Cells (0-4) /hpf Urine Bacteria (None) /hpf Urine Opiates Screen Not Detected (NotDetected) Ur Oxycodone Screen Not Detected (NotDetected) Urine Methadone Screen Not Detected (NotDetected) Ur Propoxyphene Screen Not Detected (NotDetected) Ur Barbiturates Screen Not Detected (NotDetected) U Tricyclic Antidepress Not Detected (NotDetected) Ur Phencyclidine Scrn Not Detected (NotDetected) Ur Amphetamines Screen Not Detected (NotDetected) U Methamphetamines Scrn Not Detected (NotDetected) U Benzodiazepines Scrn Not Detected (NotDetected) Urine Cocaine Screen Not Detected (NotDetected) U Marijuana (THC) Screen Not Detected (NotDetected) Serum Alcohol <10 mg/dL 04/20/20 Range/Units 13:09 WBC (3.8-10.6) k/uL RBC (3.80-5.40) m/uL Hgb (11.4-16.0) gm/dL Hct (34.0-46.0) % MCV (80.0-100.0) fL MCH (25.0-35.0) pg MCHC (31.0-37.0) g/dL RDW (11.5-15.5) % Plt Count (150-450) k/uL Neutrophils % % Lymphocytes % % Monocytes % % Eosinophils % % Basophils % % Neutrophils # (1.3-7.7) k/uL Lymphocytes # (1.0-4.8) k/uL Monocytes # (0-1.0) k/uL Eosinophils # (0-0.7) k/uL Basophils # (0-0.2) k/uL Anisocytosis Sodium (137-145) mmol/L Potassium (3.5-5.1) mmol/L Chloride (98-107) mmol/L Carbon Dioxide (22-30) mmol/L Anion Gap mmol/L BUN (7-17) mg/dL Creatinine (0.52-1.04) mg/dL Est GFR (CKD-EPI)AfAm (>60 ml/min/1.73 sqM) Est GFR (CKD-EPI)NonAf (>60 ml/min/1.73 sqM) Glucose (74-99) mg/dL Calcium (8.4-10.2) mg/dL Urine Color Light Yellow Urine Appearance Clear (Clear) Urine pH 6.0 (5.0-8.0) Ur Specific [place] 1.006 (1.001-1.035) Urine Protein Trace H (Negative) Urine Glucose (UA) Negative (Negative) Urine Ketones Negative (Negative) Urine Blood Trace H (Negative) Urine Nitrite Positive H (Negative) Urine Bilirubin Negative (Negative) Urine Urobilinogen <2.0 (<2.0) mg/dL Ur Leukocyte Esterase Moderate H (Negative) Urine RBC 2 (0-5) /hpf Urine WBC 24 H (0-5) /hpf Ur Squamous Epith Cells <1 (0-4) /hpf Urine Bacteria Moderate H (None) /hpf Urine Opiates Screen (NotDetected) Ur Oxycodone Screen (NotDetected) Urine Methadone Screen (NotDetected) Ur Propoxyphene Screen (NotDetected) Ur Barbiturates Screen (NotDetected) U Tricyclic Antidepress (NotDetected) Ur Phencyclidine Scrn (NotDetected) Ur Amphetamines Screen (NotDetected) U Methamphetamines Scrn (NotDetected) U Benzodiazepines Scrn (NotDetected) Urine Cocaine Screen (NotDetected) U Marijuana (THC) Screen (NotDetected) Serum Alcohol mg/dL Disposition Clinical Impression: Acute psychosis Disposition: TRANSFER TO PSYCH HOSP/UNIT Is patient prescribed a controlled substance at d/c from ED?: No Referrals: Ponce West MD [Primary Care Provider] - 1-2 days Decision Time: 14:56
[2020-04-20 13:33] LABS: Anisocytosis Slight; Basophils # (A) 0.1 k/uL (0-0.2); Basophils % (A) 1 %; Eosinophils # (A) 0.1 k/uL (0-0.7); Eosinophils % (A) 1 %; HCT 36.6 % (34.0-46.0); HGB 12.3 gm/dL (11.4-16.0); Lymphocytes # (A) 1.6 k/uL (1.0-4.8); Lymphocytes % (A) 17 %; MCH 29.6 pg (25.0-35.0); MCHC 33.6 g/dL (31.0-37.0); MCV 88.2 fL (80.0-100.0); Monocytes # (A) 0.4 k/uL (0-1.0); Monocytes % (A) 5 %; Neutrophils % (A) 75 %; Platelet Count 307 k/uL (150-450); RBC 4.15 m/uL (3.80-5.40); RDW 16.8 % (11.5-15.5); WBC 9.3 k/uL (3.8-10.6)
[2020-04-20 13:34] LABS: Appearance,Urine Clear (Clear); Bacteria,Urine Moderate /hpf; Bilirubin,Urine Negative (Negative); Blood,Urine Trace (Negative); Color,Urine Light Yellow; Glucose,Urine (UA) Negative (Negative); Ketones,Urine Negative (Negative); Leukocyte Esterase,Urine Moderate (Negative); Nitrite,Urine Positive (Negative); Protein,Urine Trace (Negative); RBC,Urine 2 /hpf (0-5); Specific Gravity,Urine 1.006 (1.001-1.035); Squamous Epithelial Cell,Urine <1 /hpf (0-4); Urobilinogen,Urine <2.0 mg/dL (<2.0); WBC,Urine 24 /hpf (0-5)
[2020-04-20] MEDS ORDERED: ACETAMINOPHEN TAB 500 MG TAB PO STA (13:40)
[2020-04-20] MEDS ORDERED: CEPHALEXIN 500 MG CAP PO STA (13:42)
[2020-04-20 13:46] LABS: African American GFR (CKD) >90 (>60 ml/min/1.73 sqM); Alcohol <10 mg/dL; Anion Gap 9 mmol/L; Blood Urea Nitrogen 11 mg/dL (7-17); Calcium 9.4 mg/dL (8.4-10.2); Carbon Dioxide 27 mmol/L (22-30); Chloride 98 mmol/L (98-107); Glucose 141 mg/dL (74-99); Non-African American GFR(CKD) >90 (>60 ml/min/1.73 sqM); Potassium 3.6 mmol/L (3.5-5.1); Sodium 134 mmol/L (137-145)
[2020-04-20 13:51] LABS: Amphetamine Screen,Urine Not Detected (NotDetected); Barbiturate Screen,Urine Not Detected (NotDetected); Benzodiazepines Screen,Urine Not Detected (NotDetected); Cocaine Screen,Urine Not Detected (NotDetected); Methadone Screen, Urine Not Detected (NotDetected); Opiate Screen,Urine Not Detected (NotDetected); Oxycodone Screen, Urine Not Detected (NotDetected); Phencyclidine Screen,Urine Not Detected (NotDetected); Tricyclic Antidepressant,Urine Not Detected (NotDetected); Urn Cannabinoid Scrn Not Detected (NotDetected)
[2020-04-20] MEDS ORDERED: MAG HYDROX/AL HYDROX/SIMETH 30 ML CUP PO PRN (16:09)
[2020-04-20] MEDS ORDERED: MAGNESIUM HYDROXIDE 2,400 MG/10 ML CUP PO PRN (16:09)
[2020-04-20] MEDS ORDERED: LORazepam 1 MG TAB PO PRN (16:09)
[2020-04-20] MEDS ORDERED: ZIPRASIDONE 20 MG VIAL IM PRN (16:09)
[2020-04-20] MEDS ORDERED: diphenhydrAMINE 25 MG CAP PO PRN (16:13)
[2020-04-20] MEDS ORDERED: ASPIRIN 325 MG TAB PO PRN (16:13)
[2020-04-20] MEDS ORDERED: IBUPROFEN 200 MG TAB PO PRN (16:13)
[2020-04-20] MEDS ORDERED: ALBUTEROL INHALER 60 PUFF/8 GM INHALER (MHU) INHALATION PRN (16:13)
[2020-04-20 19:15] LABS: Glucose,Whole Blood 123 mg/dL (75-99)
[2020-04-20] MEDS: AMANTADINE HCL 100 MG CAP PO SCH (19:25)
[2020-04-20] MEDS: risperiDONE 2 MG TAB PO SCH (19:25)
[2020-04-20] MEDS: GLIMEPIRIDE 1 MG TAB PO SCH (19:25)
[2020-04-20] MEDS: DIVALPROEX SPRINKLE 125 MG CAP.SPRINK PO SCH (19:25)
[2020-04-20] MEDS: ATORVASTATIN 20 MG TAB PO SCH (19:25)
[2020-04-20] MEDS: SYMBICORT 160-4.5 MCG INHALER INHALATION SCH (21:04)
--- NOTE | 2020-04-21 04:47 | P.CONS ---
History of Present Illness - Reason for Consult Consult date: 04/21/20 - History of Present Illness The patient is a 60-year-old female with a PMH of type II DM, hypertension, hyperlipidemia, COPD and bipolar disorder who was sent to the ED for psychiatric evaluation. The patient was reportedly having disorganized thought process with flight of ideas and was thereby admitted to the mental health unit where she was seen and evaluated earlier today. The patient continued to have flight of ideas during the interview and was not answering questions appropriately. She was a fairly poor historian. She reported bilateral leg pain. The patient would not answer if she had any urinary complaints. In the emergency room, UA was consistent with UTI, sodium was 134, potassium 3.6, BUN 11, creatinine 0.42, glucose 123, with WBC count 9.3, hemoglobin 12.3, and platelet 307. Review of Systems ROS unobtainable: due to mental status Past Medical History Past Medical History: No Reported History, Diabetes Mellitus, Hypertension History of Any Multi-Drug Resistant Organisms: None Reported Past Surgical History: Section Past Anesthesia/Blood Transfusion Reactions: No Reported Reaction Past Psychological History: Schizophrenia Smoking Status: Current every day smoker Past Alcohol Use History: None Reported Past Drug Use History: None Reported - Past Family History family Family Medical History: Unable to Obtain Medications and Allergies Home Medications Medication Instructions Recorded Confirmed Type Ergocalciferol [Vitamin D2 50,000 unit PO FR 09/02/19 04/20/20 History (DRISDOL)] metFORMIN HCL ER [Glucophage Xr] 1,000 mg PO DAILY 09/02/19 04/20/20 History Atorvastatin [Lipitor] 20 mg PO HS@2100 02/23/20 04/20/20 History Losartan/Hydrochlorothiazide 1 tab PO DAILY@0800 02/23/20 04/20/20 History [Losartan-Hctz 100-25 mg Tab] Albuterol Inhaler [Ventolin Hfa 2 puff INHALATION RT-QID PRN puff 02/27/20 04/20/20 Rx Inhaler] Budesonide-Formot 160-4.5 Mcg 2 puff INHALATION RT-BID puff 02/27/20 04/20/20 Rx [Symbicort 160-4.5 Mcg Inhaler] Acetaminophen [Tylenol] 650 mg PO Q6H PRN 04/20/20 04/20/20 History Amantadine HCl [Amantadine] 100 mg PO BID 04/20/20 04/20/20 History Aspirin EC [Ecotrin] 325 mg PO DAILY PRN 04/20/20 04/20/20 History Beneprotein Powder 7 gram PO DAILY 04/20/20 04/20/20 History Divalproex Sodium [Depakote 125 mg PO BID 04/20/20 04/20/20 History Sprinkle] Docusate [Colace] 100 mg PO DAILY PRN 04/20/20 04/20/20 History Glimepiride [Amaryl] 1 mg PO AC-BID 04/20/20 04/20/20 History Ibuprofen [Motrin Ib] 200 mg PO Q8H PRN 04/20/20 04/20/20 History Jay-Tin Liq 30 ml PO DAILY PRN 04/20/20 History LORazepam [Ativan] 2 mg PO HS 04/20/20 04/20/20 History Linagliptin [Tradjenta] 5 mg PO DAILY 04/20/20 04/20/20 History Loperamide HCl [Imodium A-D] 2 mg PO DAILY PRN 04/20/20 04/20/20 History Magnesium Hydroxide [Milk of 2,400 mg PO DAILY PRN 04/20/20 04/20/20 History Magnesia] Pseudoephedrine HCl [Sudogest] 60 mg PO DAILY PRN 04/20/20 04/20/20 History Psyllium Husk (with Sugar) 1 dose PO DAILY PRN 04/20/20 04/20/20 History [Metamucil Powder] Robafen Syp 100/5ml 10 ml PO Q4H PRN 04/20/20 04/20/20 History diphenhydrAMINE [Benadryl] 25 mg PO QID PRN 04/20/20 04/20/20 History risperiDONE [RisperDAL] 4 mg PO HS 04/20/20 04/20/20 History Allergies Allergy/AdvReac Type Severity Reaction Status Date / Time honey Allergy Unknown Verified 04/20/20 12:52 latex Allergy Unknown Verified 04/20/20 12:52 risperidone [From Risperdal] Allergy Unknown Verified 04/20/20 13:04 whey Allergy Unknown Verified 04/20/20 12:52 Physical Exam Vitals: Vital Signs Temp Pulse Pulse Resp BP BP Pulse Ox 04/20/20 16:39 96.6 F L 91 16 139/76 91 L 04/20/20 16:11 99.4 F 98 18 137/88 93 L 04/20/20 12:53 99.4 F 95 18 128/74 94 L Intake and Output 04/20/20 04/20/20 04/21/20 14:59 22:59 06:59 Other: Weight 120.202 kg General: Disheveled female, no distress, appears older than stated age, morbidly obese Derm: Bilateral lower extremity chronic venous stasis changes with 2+ lower extremity pitting edema, warm, dry Head: atraumatic, normocephalic, symmetric Eyes: EOMI, no lid lag, anicteric sclera, pupils equal round reactive to light ENT: Nose and ears atraumatic, no thrush, no pharyngeal erythema Neck: No thyromegaly, no cervical lymphadenopathy, trachea midline, supple Mouth: no lip lesion, mucus membranes dry Cardiovascular: S1S2 reg, no murmur, positive posterior tibial pulse bilateral, bilateral lower extremity 2+ pitting edema, capillary refill less than 2 seconds Lungs: CTA bilateral, no rhonchi, no rales , no accessory muscle use Abdominal: soft, nontender to palpation, no guarding, no appreciable organomegaly, normal bowel sounds Ext: no gross muscle atrophy, muscle strength 5 out of 5 in all 4 extremities grossly, no contractures, Neuro: CN II-XI grossly intact, light touch intact all 4 extremities Psych: Alert, awake, oriented 3, flight of ideas with pressured speech Results CBC & Chem 7: 04/20/20 12:59 04/20/20 12:59 Labs: Abnormal Lab Results - Last 24 Hours (Table) 04/20/20 04/20/20 04/20/20 Range/Units 12:59 12:59 12:59 RDW 16.8 H (11.5-15.5) % Sodium 134 L (137-145) mmol/L Creatinine 0.42 L (0.52-1.04) mg/dL Glucose 141 H (74-99) mg/dL POC Glucose (mg/dL) (75-99) mg/dL Triglycerides 275 H (<150) mg/dL Cholesterol 224 H (<200) mg/dL HDL Cholesterol 75 H (40-60) mg/dL Urine Protein (Negative) Urine Blood (Negative) Urine Nitrite (Negative) Ur Leukocyte Esterase (Negative) Urine WBC (0-5) /hpf Urine Bacteria (None) /hpf 04/20/20 04/20/20 Range/Units 13:09 19:14 RDW (11.5-15.5) % Sodium (137-145) mmol/L Creatinine (0.52-1.04) mg/dL Glucose (74-99) mg/dL POC Glucose (mg/dL) 123 H (75-99) mg/dL Triglycerides (<150) mg/dL Cholesterol (<200) mg/dL HDL Cholesterol (40-60) mg/dL Urine Protein Trace H (Negative) Urine Blood Trace H (Negative) Urine Nitrite Positive H (Negative) Ur Leukocyte Esterase Moderate H (Negative) Urine WBC 24 H (0-5) /hpf Urine Bacteria Moderate H (None) /hpf Microbiology - Last 24 Hours (Table) 04/20/20 13:09 Urine Culture - Preliminary Urine,Voided Assessment and Plan Plan: Type II DM -Continue with metformin, amaryl, and tradjenta -Check A1c -Blood glucose monitoring Bilateral lower extremity edema with venous stasis dermatitis -Obtain echocardiogram -Encourage leg raising -Start Lasix 40 mg daily Hypertension -Continue with Hyzaar home med Hyperlipidemia -Continue with home meds: Lipitor COPD -Continue with home meds Symbicort Psychosis -As per psychiatry Thank you for allowing us to participate in the care of this patient. We will follow peripherally. Do not hesitate to contact us with questions. Someone can be reached from the [facility] hospitalist group at all hours of the day at [phone].
[2020-04-21 08:01] LABS: Glucose,Whole Blood 133 mg/dL (75-99)
[2020-04-21] MEDS: DIVALPROEX SPRINKLE 125 MG CAP.SPRINK PO SCH ×3 (10:20→22:10)
[2020-04-21] MEDS: LOSARTAN-HCTZ 50-12.5 MG 1 EACH TAB PO SCH (10:20)
[2020-04-21] MEDS: SYMBICORT 160-4.5 MCG INHALER INHALATION SCH (10:20)
[2020-04-21] MEDS: GLIMEPIRIDE 1 MG TAB PO SCH ×2 (10:20→18:15)
[2020-04-21] MEDS: AMANTADINE HCL 100 MG CAP PO SCH ×2 (10:20→22:05)
[2020-04-21] MEDS: metFORMIN 500 MG TAB PO SCH ×3 (10:21→22:10)
[2020-04-21] MEDS: ERGOCALCIFEROL 50,000 UNIT CAP PO SCH (10:21)
[2020-04-21] MEDS: LINAGLIPTIN 5 MG TABLET PO SCH (10:21)
[2020-04-21] MEDS: PSYLLIUM HUSK 100% 6 GM PACKET PO SCH (10:21)
[2020-04-21] MEDS: NICOTINE 14MG/24HR PATCH TRANSDERM SCH (10:21)
[2020-04-21] MEDS: FUROSEMIDE 40 MG TAB PO SCH (10:21)
[2020-04-21] MEDS ORDERED: HALOPERIDOL LACTATE 5 MG/ML 1 ML VIAL IM PRN (11:04)
[2020-04-21 13:12] LABS: Glucose,Whole Blood 105 mg/dL (75-99)
[2020-04-21 13:32] LABS: Hemoglobin A1C 7.9 % (4.0-6.0)
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
[2020-04-21 17:46] LABS: Glucose,Whole Blood 108 mg/dL (75-99)
[2020-04-21 20:29] LABS: Glucose,Whole Blood 210 mg/dL (75-99)
[2020-04-21] MEDS: ATORVASTATIN 20 MG TAB PO SCH (22:04)
[2020-04-21] MEDS: risperiDONE 2 MG TAB PO SCH (22:05)
[2020-04-22 07:53] LABS: Glucose,Whole Blood 147 mg/dL (75-99)
[2020-04-22] MEDS: DIVALPROEX SPRINKLE 125 MG CAP.SPRINK PO SCH (09:19)
[2020-04-22] MEDS: AMANTADINE HCL 100 MG CAP PO SCH ×2 (09:19→19:52)
[2020-04-22] MEDS: LOSARTAN-HCTZ 50-12.5 MG 1 EACH TAB PO SCH (09:19)
[2020-04-22] MEDS: LINAGLIPTIN 5 MG TABLET PO SCH (09:19)
[2020-04-22] MEDS: GLIMEPIRIDE 1 MG TAB PO SCH ×2 (09:19→18:14)
[2020-04-22] MEDS: FUROSEMIDE 40 MG TAB PO SCH (09:20)
[2020-04-22] MEDS: NICOTINE 14MG/24HR PATCH TRANSDERM SCH (09:21)
[2020-04-22] MEDS: metFORMIN 500 MG TAB PO SCH ×2 (09:21→19:52)
[2020-04-22] MEDS: PSYLLIUM HUSK 100% 6 GM PACKET PO SCH (09:23)
[2020-04-22] MEDS: SYMBICORT 160-4.5 MCG INHALER INHALATION SCH ×2 (09:50→16:20)
--- NOTE | 2020-04-22 12:40 | P.PN ---
Progress Note - Text Interval history: The patient is found in the hallway she follows me to an interview room. The patient was admitted to the mental health unit for agitated behavior and presumed symptoms of psychosis. She is on an existing court order. She's been started on Risperdal and is to receive Haldol if she refuses the Risperdal. She is a poor historian. She is somewhat somatically preoccupied. She frequently refers to something being wrong with her forehead. During the session she becomes quite loud slams her hand on the table and demands to go outside. She indicates that she is eating. Staff reported she slept 6 hours last evening. Mental status exam: The patient is a morbidly obese female appearing her stated age, she is tired appearing but not lethargic she is ambulating without difficulty. She is initially speaking slowly and quietly then suddenly becomes agitated as noted above. She was able to respond to verbal redirection however. She demonstrates a disorganized thought process she provides irrelevant answers to questions and then in between questions continued to talk to herself. She demonstrates poor insight and judgment. She appears to be in no acute physical distress. She is not able to provide responses to all of the typical questions included in the psychiatric review of systems. Plan: The patient will continue on her current psychotropic medications. We will monitor for safety. She requires continued psychiatric hospitalization. Vital signs reviewed.
[2020-04-22 12:53] LABS: Glucose,Whole Blood 93 mg/dL (75-99)
[2020-04-22 17:58] LABS: Glucose,Whole Blood 111 mg/dL (75-99)
[2020-04-22] MEDS: ATORVASTATIN 20 MG TAB PO SCH (19:52)
[2020-04-22] MEDS: CEFDINIR 300 MG CAP PO SCH (19:52)
[2020-04-22] MEDS: risperiDONE 2 MG TAB PO SCH (19:52)
[2020-04-22 20:19] LABS: Glucose,Whole Blood 164 mg/dL (75-99)
[2020-04-23 08:00] LABS: Glucose,Whole Blood 151 mg/dL (75-99)
[2020-04-23] MEDS: DIVALPROEX SPRINKLE 125 MG CAP.SPRINK PO SCH ×3 (08:12→20:17)
[2020-04-23] MEDS: SYMBICORT 160-4.5 MCG INHALER INHALATION SCH ×3 (08:12→20:15)
[2020-04-23] MEDS: PSYLLIUM HUSK 100% 6 GM PACKET PO SCH (09:04)
[2020-04-23] MEDS: FUROSEMIDE 40 MG TAB PO SCH (09:05)
[2020-04-23] MEDS: CEFDINIR 300 MG CAP PO SCH ×2 (09:05→20:16)
[2020-04-23] MEDS: LINAGLIPTIN 5 MG TABLET PO SCH (09:06)
[2020-04-23] MEDS: LOSARTAN-HCTZ 50-12.5 MG 1 EACH TAB PO SCH (09:06)
[2020-04-23] MEDS: GLIMEPIRIDE 1 MG TAB PO SCH ×2 (09:06→20:15)
[2020-04-23] MEDS: AMANTADINE HCL 100 MG CAP PO SCH ×2 (09:06→20:16)
[2020-04-23] MEDS: NICOTINE 14MG/24HR PATCH TRANSDERM SCH (09:07)
[2020-04-23] MEDS: metFORMIN 500 MG TAB PO SCH ×2 (09:07→20:17)
--- NOTE | 2020-04-23 12:59 | P.PN ---
Progress Note - Text Interval history: The patient is found in her room she follows me to an interview room. The patient does not participate in the conversation in any relevant fashion. She has a disorganized thought process. She enters interview room she does not stand for most of the session she looks out the window and names objects that she sees. Were not able to effectively discuss her medication management. Staff report no behavioral disturbances. The patient does indicate that she feels tired. It appears that she has been compliant with her psychotropic medication. Mental status exam: The patient is an overweight female she is ambulating slowly without any ataxia she is noted to have very repetitive tremor of her right upper extremity while she is ambulating during our session this translates to her tapping on the table throughout our interaction while she is seated with her right upper extremity. Thought process is disorganized. Speech is fluent she is verbose but not pressured she has poor insight into her symptoms. She demonstrates no signs of being in acute physical distress. She demonstrates no verbal or physical aggressiveness. She is directable. Plan: The patient will continue on her current psychotropic medications. She remains quite symptomatic still. She requires continued psychiatric hospital ization. We will monitor her for safety vital signs reviewed.
[2020-04-23 13:16] LABS: Glucose,Whole Blood 104 mg/dL (75-99)
[2020-04-23 18:08] LABS: Glucose,Whole Blood 126 mg/dL (75-99)
[2020-04-23 20:15] LABS: Glucose,Whole Blood 152 mg/dL (75-99)
[2020-04-23] MEDS: ATORVASTATIN 20 MG TAB PO SCH (20:16)
[2020-04-23] MEDS: risperiDONE 2 MG TAB PO SCH (20:18)
[2020-04-24] MEDS: NICOTINE 14MG/24HR PATCH TRANSDERM SCH (07:14)
[2020-04-24 08:03] LABS: Glucose,Whole Blood 128 mg/dL (75-99)
[2020-04-24] MEDS: GLIMEPIRIDE 1 MG TAB PO SCH ×2 (08:35→18:04)
[2020-04-24] MEDS: SYMBICORT 160-4.5 MCG INHALER INHALATION SCH ×2 (08:35→20:25)
[2020-04-24] MEDS: CEFDINIR 300 MG CAP PO SCH ×2 (08:36→20:45)
[2020-04-24] MEDS: AMANTADINE HCL 100 MG CAP PO SCH ×2 (08:36→20:46)
[2020-04-24] MEDS: FUROSEMIDE 40 MG TAB PO SCH (08:36)
[2020-04-24] MEDS: LINAGLIPTIN 5 MG TABLET PO SCH (08:36)
[2020-04-24] MEDS: DIVALPROEX SPRINKLE 125 MG CAP.SPRINK PO SCH ×2 (08:36→20:49)
[2020-04-24] MEDS: PSYLLIUM HUSK 100% 6 GM PACKET PO SCH (08:37)
[2020-04-24] MEDS: metFORMIN 500 MG TAB PO SCH ×2 (08:37→20:25)
[2020-04-24] MEDS: LOSARTAN-HCTZ 50-12.5 MG 1 EACH TAB PO SCH (08:41)
--- NOTE | 2020-04-24 12:26 | P.PN ---
Progress Note - Text Progress Note Date: 04/24/20 Clinical Problems: schizophrenia, multiple episodes, acute episode, noncompliance with treatment, rule out major neurocognitive disorder, hypertension, COPD, Tobacco use disorder Interim history: I reviewed the medical record, interviewed the patient and discussed her treatment and treatment plan during team meeting. Her speech remains disorganized and difficult to follow and understand. Her only complaint appear to have been discharge. She denied other complaints or concerns. She is intermittently compliant with prescribed psychiatric and medical medications. She appears to some grossly comply with her medications. One concern is that she is refusing to use her inhalers. I reviewed the progress notes from [facility]. Her outpatient psychiatrist several times attempted to change her antipsychotic from Risperdal to Abilify. Mental status exam: She presented as a casually groomed, morbidly obese elderly woman who was pleasant on approach. She made eye contact and appeared to attend to interview. She has bipedal edema. She had a flat facial expression. She was alert and oriented to person and place. She had psychomotor retardation and bilateral hand tremors. Her speech was spontaneous, dysarthric and difficult to hear and understand. Her affect was blunted but stable and appropriate. She did not express clear ideas reference, wishes or homicidal ideation. She did not express feelings of hopelessness, helplessness or worthlessness. She did not appear to express paranoid ideation or delusional thoughts. Her thinking is very concrete, illogical and at times incoherent. She did not appear to be responding to internal stimuli. Assessment: She remains severely and persistently mentally ill and mentally improve from admission. I concur with her outpatient psychiatrist's recommendation to change her antipsychotic Plan: Continue inpatient treatment. Safety precautions. Begin Abilify 10 mg daily and titrated according to clinical response and tolerance. Continue Depakote 125 mg by mouth twice a day and amantadine 100 mg twice a day. Discontinue risperidone 4 mg at bedtime and Risperdal Consta. Once establish tolerance transition to Abilify maintenna.
[2020-04-24 12:44] LABS: Glucose,Whole Blood 103 mg/dL (75-99)
[2020-04-24] MEDS ORDERED: HALOPERIDOL LACTATE 5 MG/ML 1 ML VIAL IM PRN (16:30)
[2020-04-24 18:05] LABS: Glucose,Whole Blood 147 mg/dL (75-99)
[2020-04-24 20:14] LABS: Glucose,Whole Blood 123 mg/dL (75-99)
[2020-04-24] MEDS: ATORVASTATIN 20 MG TAB PO SCH (20:49)
[2020-04-24] MEDS ORDERED: HALOPERIDOL LACTATE 5 MG/ML 1 ML VIAL IM SCH (21:00)
[2020-04-25 07:41] LABS: Glucose,Whole Blood 117 mg/dL (75-99)
[2020-04-25] MEDS: NICOTINE 14MG/24HR PATCH TRANSDERM SCH (07:58)
[2020-04-25] MEDS: LOSARTAN-HCTZ 50-12.5 MG 1 EACH TAB PO SCH (07:59)
[2020-04-25] MEDS: GLIMEPIRIDE 1 MG TAB PO SCH ×2 (07:59→18:19)
[2020-04-25] MEDS: SYMBICORT 160-4.5 MCG INHALER INHALATION SCH ×2 (08:00→21:03)
[2020-04-25] MEDS: FUROSEMIDE 40 MG TAB PO SCH (08:00)
[2020-04-25] MEDS: ARIPiprazole 10 MG TAB PO SCH (08:00)
[2020-04-25] MEDS: DIVALPROEX SPRINKLE 125 MG CAP.SPRINK PO SCH ×2 (08:00→21:00)
[2020-04-25] MEDS: AMANTADINE HCL 100 MG CAP PO SCH ×2 (08:00→20:57)
[2020-04-25] MEDS: CEFDINIR 300 MG CAP PO SCH ×2 (08:00→20:57)
[2020-04-25] MEDS: PSYLLIUM HUSK 100% 6 GM PACKET PO SCH (08:01)
[2020-04-25] MEDS: LINAGLIPTIN 5 MG TABLET PO SCH (08:01)
[2020-04-25] MEDS: metFORMIN 500 MG TAB PO SCH ×2 (08:01→20:56)
[2020-04-25 12:59] LABS: Glucose,Whole Blood 93 mg/dL (75-99)
--- NOTE | 2020-04-25 14:23 | P.PN ---
Progress Note - Text Progress Note Date: 04/25/20 Clinical Problems: schizophrenia, multiple episodes, acute episode, noncompliance with treatment, rule out major neurocognitive disorder, hypertension, COPD, Tobacco use disorder Interim history: I reviewed the medical record, interviewed the patient and discussed her treatment and treatment plan during team meeting. Her thinking remains disorganized and her speech is almost incoherent. She has been taking the prescribed Abilify 10 mg daily but is not consistently compliant with other medications. Mental status exam: She presented as a casually groomed, morbidly obese elderly woman who was pleasant on approach. She made eye contact and appeared to attend to interview. She has bipedal edema. She had a flat facial expression. She was alert and oriented to person and place. She had psychomotor retardation and bilateral hand tremors. Her speech was spontaneous, dysarthric and difficult to hear and understand. Her affect was blunted but stable and appropriate. She did not express clear ideas reference, wishes or homicidal ideation. She did not express feelings of hopelessness, helplessness or worthlessness. She did not appear to express paranoid ideation or delusional thoughts. Her thinking is very concrete, illogical and at times incoherent. She did not david ear to be responding to internal stimuli. Assessment: She remains severely and persistently mentally ill and mentally improve from admission. She has had no adverse reaction to initial dose of Abilify. Plan: Continue inpatient treatment. Safety precautions. Continue Abilify 10 mg daily and titrate the dose according to clinical response and tolerance. Continue Depakote 125 mg by mouth twice a day and amantadine 100 mg twice a day. Discontinue risperidone 4 mg at bedtime and Risperdal Consta. Once establish tolerance transition to Abilify maintenna.
[2020-04-25 17:59] LABS: Glucose,Whole Blood 97 mg/dL (75-99)
[2020-04-25 20:08] LABS: Glucose,Whole Blood 152 mg/dL (75-99)
[2020-04-25] MEDS: ATORVASTATIN 20 MG TAB PO SCH (20:56)
[2020-04-26 07:57] LABS: Glucose,Whole Blood 113 mg/dL (75-99)
[2020-04-26] MEDS: PSYLLIUM HUSK 100% 6 GM PACKET PO SCH (09:20)
[2020-04-26] MEDS: NICOTINE 14MG/24HR PATCH TRANSDERM SCH (09:20)
[2020-04-26] MEDS: DIVALPROEX SPRINKLE 125 MG CAP.SPRINK PO SCH ×2 (09:21→20:46)
[2020-04-26] MEDS: ARIPiprazole 10 MG TAB PO SCH (09:21)
[2020-04-26] MEDS: LINAGLIPTIN 5 MG TABLET PO SCH (09:23)
[2020-04-26] MEDS: CEFDINIR 300 MG CAP PO SCH ×2 (09:23→20:43)
[2020-04-26] MEDS: GLIMEPIRIDE 1 MG TAB PO SCH ×2 (09:24→17:44)
[2020-04-26] MEDS: FUROSEMIDE 40 MG TAB PO SCH (09:24)
[2020-04-26] MEDS: AMANTADINE HCL 100 MG CAP PO SCH ×2 (09:24→20:43)
[2020-04-26] MEDS: SYMBICORT 160-4.5 MCG INHALER INHALATION SCH ×2 (09:24→20:41)
[2020-04-26] MEDS: LOSARTAN-HCTZ 50-12.5 MG 1 EACH TAB PO SCH (09:24)
[2020-04-26] MEDS: metFORMIN 500 MG TAB PO SCH ×2 (09:27→20:43)
[2020-04-26 12:42] LABS: Glucose,Whole Blood 83 mg/dL (75-99)
--- NOTE | 2020-04-26 13:21 | P.PN ---
Progress Note - Text Progress Note Date: 04/26/20 Clinical Problems: schizophrenia, multiple episodes, acute episode, noncompliance with treatment, rule out major neurocognitive disorder, hypertension, COPD, Tobacco use disorder Interim history: I reviewed the medical record, interviewed the patient and discussed her treatment and treatment plan during team meeting. Her thinking and speech were disorganized and difficult to follow but she was actively hallucinating during the interview. She was moving her fingers and rhythmic manner. When I asked her why she was looking to the side and mumbling to herself she stated that she is talking to "her" and typing. She mumbled something about a "box finisher". One point a few she carried on a conversation with this imaginary person. Mental status exam: She presented as a casually groomed, morbidly obese elderly woman who was pleasant on approach. She made eye contact and appeared to attend to interview. She has bipedal edema. She had a blunted but bright facial expression. She was alert and oriented to person and place. She did not demonstrate a typical tremor associated with antipsychotic medications. Her speech was spontaneous, dysarthric and difficult to hear and understand. Her affect was blunted but stable and appropriate. She did not express clear ideas reference, wishes or homicidal ideation. She did not express feelings of hopelessness, helplessness or worthlessness. She did not appear to express paranoid ideation or delusional thoughts. Her thinking is very concrete, illogical and at times incoherent. She was experiencing auditory hallucinations during our interview Assessment: She remains severely and persistently mentally ill and mentally improve from admission. She has had no adverse reaction to initial dose of Abilify. Plan: Continue inpatient treatment. Safety precautions. Continue Abilify 10 mg daily and titrate the dose according to clinical response and tolerance. Continue Depakote 125 mg by mouth twice a day and amantadine 100 mg twice a day. Once establish tolerance transition to Abilify maintenna.
[2020-04-26 17:42] LABS: Glucose,Whole Blood 96 mg/dL (75-99)
[2020-04-26 20:25] LABS: Glucose,Whole Blood 126 mg/dL (75-99)
[2020-04-26] MEDS: ATORVASTATIN 20 MG TAB PO SCH (20:42)
[2020-04-27 07:39] LABS: Glucose,Whole Blood 124 mg/dL (75-99)
[2020-04-27] MEDS: GLIMEPIRIDE 1 MG TAB PO SCH ×2 (07:58→17:52)
[2020-04-27] MEDS: NICOTINE 14MG/24HR PATCH TRANSDERM SCH (07:58)
[2020-04-27] MEDS: SYMBICORT 160-4.5 MCG INHALER INHALATION SCH ×2 (07:58→20:30)
[2020-04-27] MEDS: LOSARTAN-HCTZ 50-12.5 MG 1 EACH TAB PO SCH ×2 (07:58→08:54)
[2020-04-27] MEDS: CEFDINIR 300 MG CAP PO SCH ×2 (07:59→20:31)
[2020-04-27] MEDS: FUROSEMIDE 40 MG TAB PO SCH ×2 (07:59→08:55)
[2020-04-27] MEDS: AMANTADINE HCL 100 MG CAP PO SCH ×2 (07:59→20:33)
[2020-04-27] MEDS: ARIPiprazole 10 MG TAB PO SCH (07:59)
[2020-04-27] MEDS: LINAGLIPTIN 5 MG TABLET PO SCH (07:59)
[2020-04-27] MEDS: DIVALPROEX SPRINKLE 125 MG CAP.SPRINK PO SCH ×2 (07:59→20:35)
[2020-04-27] MEDS: PSYLLIUM HUSK 100% 6 GM PACKET PO SCH (08:00)
[2020-04-27] MEDS: metFORMIN 500 MG TAB PO SCH ×2 (08:00→21:11)
[2020-04-27 10:42] VITALS: BMI 42.5
[2020-04-27 13:08] LABS: Glucose,Whole Blood 93 mg/dL (75-99)
[2020-04-27] MEDS: cloZAPine 25 MG TAB PO SCH (13:11)
--- NOTE | 2020-04-27 15:10 | P.PN ---
Progress Note - Text Progress Note Date: 04/27/20 Clinical Problems: schizophrenia, multiple episodes, acute episode, noncompliance with treatment, rule out major neurocognitive disorder, hypertension, COPD, Tobacco use disorder Interim history: I reviewed the medical record, interviewed the patient and discussed her treatment and treatment plan during team meeting. I heard her talking loudly from outside her room. When I approached her she was talking as though she were speaking to person in the home. When I inquired she responded she is talking to them and tilted her head and injection of the wall. She stated these are patient's reassured 2 weeks ago. She stopped several times during our conversation to speak with imaginary people. Due to the severity and persistence of her mental illness and recommended treatment with clozapine. I register with our [facility] Mental status exam: She presented as a casually groomed, morbidly obese elderly woman who was pleasant on approach. She made eye contact and appeared to attend to interview. She has bipedal edema. She had a blunted but bright facial expression. She was alert and oriented to person and place. Her speech was spontaneous, dysarthric and difficult to hear and understand. Her affect was blunted but stable and appropriate. She did not express clear ideas reference, wishes or homicidal ideation. She did not express feelings of hopelessness, helplessness or worthlessness. She did not appear to express paranoid ideation but expressed an organized delusional belief but the presence of multiple people in her room. Her thinking is very concrete, illogical and at times incoherent. She was experiencing auditory hallucinations during our interview Assessment: She remains severely and persistently mentally ill and mentally improve from admission. She has had no adverse reaction to initial dose of Abilify. Plan: Continue inpatient treatment. Safety precautions. Continue Abilify 10 mg daily. Begin clozapine 12.5 mg daily and titrated according to response and tolerance. Monitor CBC with differential on a weekly basis. Discontinue Depakote 125 mg by mouth twice a day when she is on a therapeutic dose of clozapine. Continue amantadine 100 mg twice a day.
[2020-04-27 17:39] LABS: Glucose,Whole Blood 106 mg/dL (75-99)
[2020-04-27 20:25] LABS: Glucose,Whole Blood 169 mg/dL (75-99)
[2020-04-27] MEDS: ATORVASTATIN 20 MG TAB PO SCH (20:30)
[2020-04-28 07:42] LABS: Glucose,Whole Blood 122 mg/dL (75-99)
[2020-04-28] MEDS: GLIMEPIRIDE 1 MG TAB PO SCH ×2 (08:15→17:44)
[2020-04-28] MEDS: NICOTINE 14MG/24HR PATCH TRANSDERM SCH (08:15)
[2020-04-28] MEDS: SYMBICORT 160-4.5 MCG INHALER INHALATION SCH ×2 (08:15→22:26)
[2020-04-28] MEDS: CEFDINIR 300 MG CAP PO SCH ×2 (08:16→22:23)
[2020-04-28] MEDS: AMANTADINE HCL 100 MG CAP PO SCH ×2 (08:16→22:23)
[2020-04-28] MEDS: DIVALPROEX SPRINKLE 125 MG CAP.SPRINK PO SCH ×2 (08:16→22:23)
[2020-04-28] MEDS: cloZAPine 25 MG TAB PO SCH (08:16)
[2020-04-28] MEDS: ARIPiprazole 10 MG TAB PO SCH (08:16)
[2020-04-28] MEDS: metFORMIN 500 MG TAB PO SCH ×2 (08:17→22:23)
[2020-04-28] MEDS: PSYLLIUM HUSK 100% 6 GM PACKET PO SCH (08:17)
[2020-04-28] MEDS: LINAGLIPTIN 5 MG TABLET PO SCH (08:17)
[2020-04-28] MEDS: LOSARTAN-HCTZ 50-12.5 MG 1 EACH TAB PO SCH (08:17)
[2020-04-28] MEDS: FUROSEMIDE 40 MG TAB PO SCH (08:17)
[2020-04-28] MEDS: ERGOCALCIFEROL 50,000 UNIT CAP PO SCH (08:17)
--- NOTE | 2020-04-28 12:28 | P.PN ---
Progress Note - Text Progress Note Date: 04/28/20 Clinical Problems: schizophrenia, multiple episodes, acute episode, noncompliance with treatment, rule out major neurocognitive disorder, hypertension, COPD, Tobacco use disorder Interim history: I reviewed the medical record, interviewed the patient and discussed her treatment and treatment plan during team meeting. I interviewed her in the [facility]. She was sitting table breaking on paper. She is rating random statements and sentences that had no logical connection to one another. She did not appear to be responding to internal stimuli during this encounter. She did not appear so she will carry on conversation with other people delusional or active distal she were typing or transcribing. She slept 1 hour last night. Mental status exam: She presented as a casually groomed, morbidly obese elderly woman who was pleasant on approach. She made eye contact and appeared to attend to interview. She had a blunted but bright facial expression. Her speech was spontaneous, dysarthric and difficult to hear and understand. Her affect was blunted but stable and appropriate. She did not express suicidal ideation, wishes or homicidal ideation. She did not express feelings of hopelessness, helplessness or worthlessness. She did not express paranoid ideation or ideas of reference. Her thinking is very concrete, illogical and at times incoherent. She did not appear to be responding to internal stimuli. Assessment: She remains severely and persistently mentally ill and minimally to moderately improve from admission. She has had no adverse reaction to initial dose of clozapine. Plan: Continue inpatient treatment. Safety precautions. Continue Abilify 10 mg daily. Increase clozapine to 25mg daily on 04/30/2020 and titrated according to response and tolerance. Monitor CBC with differential on a weekly basis. Discontinue Depakote 125 mg by mouth twice a day when she is on a therapeutic dose of clozapine. Continue amantadine 100 mg twice a day.
[2020-04-28 12:58] LABS: Glucose,Whole Blood 119 mg/dL (75-99)
[2020-04-28 17:26] LABS: Glucose,Whole Blood 117 mg/dL (75-99)
[2020-04-28 20:01] LABS: Glucose,Whole Blood 188 mg/dL (75-99)
[2020-04-28] MEDS: ATORVASTATIN 20 MG TAB PO SCH (22:23)
[2020-04-29 07:37] LABS: Glucose,Whole Blood 115 mg/dL (75-99)
[2020-04-29] MEDS: NICOTINE 14MG/24HR PATCH TRANSDERM SCH (07:47)
[2020-04-29] MEDS: GLIMEPIRIDE 1 MG TAB PO SCH ×2 (07:48→17:36)
[2020-04-29] MEDS: metFORMIN 500 MG TAB PO SCH ×3 (07:49→21:50)
[2020-04-29] MEDS: cloZAPine 25 MG TAB PO SCH (07:50)
[2020-04-29] MEDS: ARIPiprazole 10 MG TAB PO SCH (07:50)
[2020-04-29] MEDS: PSYLLIUM HUSK 100% 6 GM PACKET PO SCH (08:56)
[2020-04-29] MEDS: DIVALPROEX SPRINKLE 125 MG CAP.SPRINK PO SCH ×3 (08:56→21:50)
--- NOTE | 2020-04-29 10:40 | P.PN ---
Progress Note - Text Progress Note Date: 04/29/20 Interval history: Patient was seen laying down in her bed this morning and was directable and a greeable to speak with health underwriter. Refused to leave her room and was appeared to be lethargic and did not want to wake up from her sleep. She was questioning who health underwriter was and demanded to be discharged. She offered no complaints. She appeared to be speaking to resolve during the interview. She has poor insight and judgment however has been taking her medications. She denied going to any groups. She states that she slept throughout the night. At this time patient denies any suicidal or homicidal ideations intent or plan. Admits to auditory hallucinations however denies any visual hallucinations. Patient denies any side effects from the medications and has been compliant with meds. Mental status exam: General Appearance: Patient appears to be obese, stated age is lethargic and cooperative. Behavior: No agitated behavior. Patient is calm and directable bizarre at times. Speech: Patient's speech is fluent and nonpressured. Mood/Affect: Mood is "okay", affect is congruent and constricted. Suicidality/Homicidality: Patient denies having any suicidal or homicidal ideation intent or plan. Perceptions: Patient denies any avisual hallucinations. Admits to auditory hallucinations. Though content/process: I'll increase Memory and concentration: AOX3, grossly intact for the purposes of this session Judgment and insight: Poor Assessment/Plan: Continue with current diagnosis. Patient continues to meet criteria for inpatient psychiatric admission for symptom stabilization and safety.Patient will be maintained on current psychotropic medication regimen. Monitor for medication compliance and for any psychotropic medication side effects. Will continue to monitor ongoing response to treatment. Encouraged participation in milieu.
[2020-04-29] MEDS: CEFDINIR 300 MG CAP PO SCH ×2 (12:32→21:45)
[2020-04-29] MEDS: SYMBICORT 160-4.5 MCG INHALER INHALATION SCH ×2 (12:32→21:49)
[2020-04-29] MEDS: FUROSEMIDE 40 MG TAB PO SCH (12:32)
[2020-04-29] MEDS: AMANTADINE HCL 100 MG CAP PO SCH ×2 (12:32→21:45)
[2020-04-29] MEDS: LOSARTAN-HCTZ 50-12.5 MG 1 EACH TAB PO SCH (12:32)
[2020-04-29] MEDS: LINAGLIPTIN 5 MG TABLET PO SCH (12:33)
[2020-04-29 12:48] LABS: Glucose,Whole Blood 113 mg/dL (75-99)
[2020-04-29] MEDS: ACETAMINOPHEN TAB 325 MG TAB PO PRN (15:55)
[2020-04-29 17:16] LABS: Glucose,Whole Blood 119 mg/dL (75-99)
[2020-04-29 20:09] LABS: Glucose,Whole Blood 113 mg/dL (75-99)
[2020-04-29] MEDS: ATORVASTATIN 20 MG TAB PO SCH (21:45)
[2020-04-30 07:41] LABS: Glucose,Whole Blood 123 mg/dL (75-99)
[2020-04-30] MEDS: SYMBICORT 160-4.5 MCG INHALER INHALATION SCH ×2 (08:54→22:26)
[2020-04-30] MEDS: GLIMEPIRIDE 1 MG TAB PO SCH ×3 (08:54→17:51)
[2020-04-30] MEDS: NICOTINE 14MG/24HR PATCH TRANSDERM SCH (08:54)
[2020-04-30] MEDS: LOSARTAN-HCTZ 50-12.5 MG 1 EACH TAB PO SCH ×2 (08:55→12:43)
[2020-04-30] MEDS: AMANTADINE HCL 100 MG CAP PO SCH ×3 (08:55→22:28)
[2020-04-30] MEDS: cloZAPine 25 MG TAB PO SCH ×2 (08:56→12:44)
[2020-04-30] MEDS: DIVALPROEX SPRINKLE 125 MG CAP.SPRINK PO SCH ×3 (08:56→22:28)
[2020-04-30] MEDS: FUROSEMIDE 40 MG TAB PO SCH ×2 (08:56→12:45)
[2020-04-30] MEDS: ARIPiprazole 10 MG TAB PO SCH ×2 (08:56→12:44)
[2020-04-30] MEDS: metFORMIN 500 MG TAB PO SCH ×2 (08:57→22:27)
[2020-04-30] MEDS: PSYLLIUM HUSK 100% 6 GM PACKET PO SCH ×2 (08:57→12:44)
[2020-04-30] MEDS: LINAGLIPTIN 5 MG TABLET PO SCH ×2 (08:57→12:44)
--- NOTE | 2020-04-30 09:59 | P.PN ---
Progress Note - Text Progress Note Date: 04/30/20 Interval history: Patient was seen laying down in her bed this morning and was directable and a greeable to speak with principal technical writer. Refused to leave her room once again and was appeared to be lethargic and only was minimally engaging with principal technical writer during conversation. She offered no overnight complaints and states that she slept well. She states that she is taking her medications. Patient did express some irritability towards the end of the conversation and was fairly demanding with brighter asking about discharge back to her retirement. She states that she has been going to groups however states that "all we talk about is why we were brought here". She has poor insight and judgment however has been taking her medications. At this time patient denies any suicidal or homicidal ideations intent or plan. Admits to auditory hallucinations however denies any visual hallucinations. Patient denies any side effects from the medications and has been compliant with meds. Mental status exam: General Appearance: Patient appears to be obese, stated age is lethargic and uncooperative. Behavior: No agitated behavior. Patient is calm and directable bizarre at times. Speech: Patient's speech is fluent and nonpressured. Mood/Affect: Mood is "ok", affect is congruent and constricted. Suicidality/Homicidality: Patient denies having any suicidal or homicidal ideation intent or plan. Perceptions: Patient denies any avisual hallucinations. Admits to auditory hallucinations. Though content/process: I'll increase Memory and concentration: AOX3, grossly intact for the purposes of this session Judgment and insight: Poor Assessment/Plan: Continue with current diagnosis. Patient continues to meet criteria for inpatient psychiatric admission for symptom stabilization and safety.Patient will be maintained on current psychotropic medication regimen. Monitor for medication compliance and for any psychotropic medication side effects. Will continue to monitor ongoing response to treatment. Encouraged participation in milieu.
[2020-04-30 12:36] LABS: Glucose,Whole Blood 126 mg/dL (75-99)
[2020-04-30 17:44] LABS: Glucose,Whole Blood 96 mg/dL (75-99)
[2020-04-30 20:22] LABS: Glucose,Whole Blood 185 mg/dL (75-99)
[2020-04-30] MEDS: ATORVASTATIN 20 MG TAB PO SCH (22:26)
[2020-05-01 07:51] LABS: Glucose,Whole Blood 117 mg/dL (75-99)
[2020-05-01] MEDS: DIVALPROEX SPRINKLE 125 MG CAP.SPRINK PO SCH ×2 (08:45→20:28)
[2020-05-01] MEDS: PSYLLIUM HUSK 100% 6 GM PACKET PO SCH (08:45)
[2020-05-01] MEDS: NICOTINE 14MG/24HR PATCH TRANSDERM SCH (08:46)
[2020-05-01] MEDS: GLIMEPIRIDE 1 MG TAB PO SCH ×2 (08:46→18:03)
[2020-05-01] MEDS: LOSARTAN-HCTZ 50-12.5 MG 1 EACH TAB PO SCH (08:46)
[2020-05-01] MEDS: cloZAPine 25 MG TAB PO SCH (08:47)
[2020-05-01] MEDS: LINAGLIPTIN 5 MG TABLET PO SCH (08:47)
[2020-05-01] MEDS: AMANTADINE HCL 100 MG CAP PO SCH ×2 (08:47→20:28)
[2020-05-01] MEDS: metFORMIN 500 MG TAB PO SCH ×2 (08:49→20:28)
[2020-05-01] MEDS: ARIPiprazole 10 MG TAB PO SCH ×2 (08:51→10:07)
[2020-05-01] MEDS: FUROSEMIDE 40 MG TAB PO SCH (08:51)
[2020-05-01] MEDS: SYMBICORT 160-4.5 MCG INHALER INHALATION SCH ×2 (08:51→20:30)
[2020-05-01 12:37] LABS: Glucose,Whole Blood 101 mg/dL (75-99)
--- NOTE | 2020-05-01 15:12 | P.PN ---
Progress Note - Text Progress Note Date: 05/01/20 Clinical Problems: schizophrenia, multiple episodes, acute episode, noncompliance with treatment, rule out major neurocognitive disorder, hypertension, COPD, Tobacco use disorder Interim history: I reviewed the medical record, interviewed the patient and discussed her treatment and treatment plan during team meeting. I interviewed her in her room. She was irritable and confused. However, she did not appear to be responding to internal stimuli during our encounter. She is compliant with medications and would only take to prescribe psychotropic medications under threat of that injection. She's been sleeping between 4-6 hours per night. She does not attend therapeutic groups and activities. She spends most of her time alone seldom interacting with staff or peers. Mental status exam: She presented as a casually groomed, morbidly obese elderly woman who was irritable. She made eye contact and appeared to attend to interview. She had a blunted facial expression. Her speech was spontaneous, dysarthric and difficult to hear and understand. Her affect was blunted but stable and appropriate. She did not express suicidal ideation, wishes or homicidal ideation. She did not express feelings of hopelessness, helplessness or worthlessness. She did not express paranoid ideation or ideas of reference. Her thinking is very concrete, illogical and at times incoherent. She did not appear to be responding to internal stimuli. Assessment: She remains severely and persistently mentally ill and minimally to moderately improve from admission. She has had no adverse reaction to initial dose of clozapine. Plan: Continue inpatient treatment. Safety precautions. Continue Abilify 10 mg daily. Increase clozapine to 50mg daily on 05/02/2020 and titrated according to response and tolerance. Monitor CBC with differential on a weekly basis. Discontinue Depakote 125 mg by mouth twice a day when she is on a therapeutic dose of clozapine. Continue amantadine 100 mg twice a day.
[2020-05-01 17:38] LABS: Glucose,Whole Blood 148 mg/dL (75-99)
[2020-05-01 20:23] LABS: Glucose,Whole Blood 183 mg/dL (75-99)
[2020-05-01] MEDS: ACETAMINOPHEN TAB 325 MG TAB PO PRN (20:27)
[2020-05-01] MEDS: ATORVASTATIN 20 MG TAB PO SCH (20:28)
[2020-05-02 08:00] LABS: Glucose,Whole Blood 126 mg/dL (75-99)
[2020-05-02] MEDS: GLIMEPIRIDE 1 MG TAB PO SCH ×2 (08:50→18:13)
[2020-05-02] MEDS: NICOTINE 14MG/24HR PATCH TRANSDERM SCH (08:50)
[2020-05-02] MEDS: ARIPiprazole 10 MG TAB PO SCH (08:51)
[2020-05-02] MEDS: LOSARTAN-HCTZ 50-12.5 MG 1 EACH TAB PO SCH (08:51)
[2020-05-02] MEDS: SYMBICORT 160-4.5 MCG INHALER INHALATION SCH ×2 (08:51→20:36)
[2020-05-02] MEDS: AMANTADINE HCL 100 MG CAP PO SCH ×2 (08:51→21:07)
[2020-05-02] MEDS: PSYLLIUM HUSK 100% 6 GM PACKET PO SCH (08:52)
[2020-05-02] MEDS: LINAGLIPTIN 5 MG TABLET PO SCH (08:52)
[2020-05-02] MEDS: cloZAPine 25 MG TAB PO SCH (08:52)
[2020-05-02] MEDS: FUROSEMIDE 40 MG TAB PO SCH (08:52)
[2020-05-02] MEDS: metFORMIN 500 MG TAB PO SCH ×3 (08:52→20:36)
[2020-05-02 12:29] LABS: Glucose,Whole Blood 116 mg/dL (75-99)
--- NOTE | 2020-05-02 14:02 | P.PN ---
Progress Note - Text Progress Note Date: 05/02/20 Clinical Problems: schizophrenia, multiple episodes, acute episode, noncompliance with treatment, rule out major neurocognitive disorder, hypertension, COPD, Tobacco use disorder Interim history: I reviewed the medical record, interviewed the patient and discussed her treatment and treatment plan during team meeting. We came 12 is for the interview. She became markedly short of breath walking from room to the office Her speech was so disorganized that I could not understand her. She expressed multiple fragmented delusional beliefs including that she had 500 children, another time it 100 children, that the children were taken from her and raised in the incubator. She also began talking to the wall as though she were responding to internal stimuli. She denied side effects to the increased dose of clozapine. We discussed a plan including discontinuing Depakote, continuing Abilify at current dose and gradually increasing clozapine. Mental status exam: She presented as a casually groomed, morbidly obese elderly woman who was pleasant on approach. She made eye contact and appeared to attend to interview. She had a blunted facial expression. Her speech was spontaneous, dysarthric and difficult to hear and understand. Her affect was blunted but stable and appropriate. She did not express suicidal ideation, wishes or homicidal ideation. She did not express feelings of hopelessness, helplessness or worthlessness. She did not express paranoid ideation or ideas of reference. Her thinking is very concrete, illogical and at times incoherent. She was responding to internal stimuli throughout much of the interview. Assessment: She remains severely and persistently mentally ill and minimally to moderately improve from admission. She has had no adverse reaction to initial dose of clozapine. Plan: Continue inpatient treatment. Safety precautions. Continue Abilify 10 mg daily. Continue [id number] daily and titrated according to clinical response and tolerance. Monitor CBC with differential on a weekly basis. Discontinue Depakote 125 mg by mouth twice a day. Continue amantadine 100 mg twice a day.
[2020-05-02 17:45] LABS: Glucose,Whole Blood 89 mg/dL (75-99)
[2020-05-02 20:44] LABS: Glucose,Whole Blood 180 mg/dL (75-99)
[2020-05-02] MEDS: ATORVASTATIN 20 MG TAB PO SCH (21:07)
[2020-05-03 07:40] LABS: Glucose,Whole Blood 123 mg/dL (75-99)
[2020-05-03 07:59] LABS: Anisocytosis Slight; Basophils # (A) 0.1 k/uL (0-0.2); Basophils % (A) 1 %; Eosinophils # (A) 0.2 k/uL (0-0.7); Eosinophils % (A) 3 %; HCT 40.9 % (34.0-46.0); HGB 13.2 gm/dL (11.4-16.0); Lymphocytes # (A) 2.6 k/uL (1.0-4.8); Lymphocytes % (A) 35 %; MCH 28.7 pg (25.0-35.0); MCHC 32.2 g/dL (31.0-37.0); Mean Platelet Volume 7.5; Monocytes # (A) 0.4 k/uL (0-1.0); Monocytes % (A) 5 %; Neutrophils # (A) 4.1 k/uL (1.3-7.7); Neutrophils % (A) 55 %; Platelet Count 277 k/uL (150-450); RDW 16.4 % (11.5-15.5); WBC 7.5 k/uL (3.8-10.6)
[2020-05-03] MEDS: NICOTINE 14MG/24HR PATCH TRANSDERM SCH (08:42)
[2020-05-03] MEDS: GLIMEPIRIDE 1 MG TAB PO SCH (08:42)
[2020-05-03] MEDS: cloZAPine 25 MG TAB PO SCH (08:43)
[2020-05-03] MEDS: SYMBICORT 160-4.5 MCG INHALER INHALATION SCH (08:43)
[2020-05-03] MEDS: ARIPiprazole 10 MG TAB PO SCH (08:43)
[2020-05-03] MEDS: AMANTADINE HCL 100 MG CAP PO SCH (08:43)
[2020-05-03] MEDS: FUROSEMIDE 40 MG TAB PO SCH (08:44)
[2020-05-03] MEDS: LOSARTAN-HCTZ 50-12.5 MG 1 EACH TAB PO SCH (08:44)
[2020-05-03] MEDS: metFORMIN 500 MG TAB PO SCH (08:44)
[2020-05-03] MEDS: LINAGLIPTIN 5 MG TABLET PO SCH (08:44)
[2020-05-03] MEDS: PSYLLIUM HUSK 100% 6 GM PACKET PO SCH (08:45)
[2020-05-03 12:46] LABS: Glucose,Whole Blood 128 mg/dL (75-99)
--- NOTE | 2020-05-03 14:21 | P.PN ---
Progress Note - Text Progress Note Date: 05/03/20 Clinical Problems: schizophrenia, multiple episodes, acute episode, noncompliance with treatment, rule out major neurocognitive disorder, hypertension, COPD, Tobacco use disorder Interim history: I reviewed the medical record, interviewed the patient and discussed her treatment and treatment plan during team meeting. She hasn't placed a paper towel over her nose held in place with her classes. She perseverated about the mole on the side of her nose. She believes that it is a "boil" and was exuding some substance into her nose. During the interview she was talking to herself and looking to her side as though she were responding to internal stimuli. She is also moving her fingers and rhythmic manner as though she were typing. She complained of feeling "tired" after taking a morning dose of clozapine. She agreed to the plan to change the dosing to at bedtime. CBC with differential showed WBC of 7.5 and an absolute neutrophil count of 4.1. Mental status exam: She presented as a casually groomed, morbidly obese elderly woman who was pleasant on approach. She made eye contact and appeared to attend to interview. She had a blunted facial expression. Her speech was spontaneous, dysarthric and difficult to hear and understand. Her affect was blunted but stable and appropriate. She did not express suicidal ideation, wishes or homicidal ideation. She did not express feelings of hopelessness, helplessness or worthlessness. She expressed a delusional belief about the mole on the side of her. Her thinking is very concrete, illogical and at times incoherent. She was responding to internal stimuli throughout much of the interview. Assessment: She remains severely and persistently mentally ill and minimally to moderately improve from admission. She is experiencing sedation from the clozapine. Plan: Continue inpatient treatment. Safety precautions. Continue Abilify 10 mg daily. Changed clozapine to 75 mg at bedtime and titrated according to clinical response and tolerance. Monitor CBC with differential on a weekly basis. Discontinue Depakote 125 mg by mouth twice a day. Continue amantadine 100 mg twice a day.
[2020-05-03 17:40] LABS: Glucose,Whole Blood 109 mg/dL (75-99)
[2020-05-03 20:27] LABS: Glucose,Whole Blood 180 mg/dL (75-99)
[2020-05-04 07:47] LABS: Glucose,Whole Blood 118 mg/dL (75-99)
[2020-05-04] MEDS: NICOTINE 14MG/24HR PATCH TRANSDERM SCH (08:43)
[2020-05-04] MEDS: SYMBICORT 160-4.5 MCG INHALER INHALATION SCH (08:44)
[2020-05-04] MEDS: AMANTADINE HCL 100 MG CAP PO SCH (08:44)
[2020-05-04] MEDS: LINAGLIPTIN 5 MG TABLET PO SCH (08:45)
[2020-05-04] MEDS: FUROSEMIDE 40 MG TAB PO SCH (08:45)
[2020-05-04] MEDS: PSYLLIUM HUSK 100% 6 GM PACKET PO SCH (08:45)
[2020-05-04] MEDS: GLIMEPIRIDE 1 MG TAB PO SCH ×2 (08:45→18:47)
[2020-05-04] MEDS: metFORMIN 500 MG TAB PO SCH ×2 (08:45→08:52)
[2020-05-04] MEDS: LOSARTAN-HCTZ 50-12.5 MG 1 EACH TAB PO SCH (08:46)
[2020-05-04] MEDS: ARIPiprazole 10 MG TAB PO SCH (08:46)
[2020-05-04 12:47] LABS: Glucose,Whole Blood 115 mg/dL (75-99)
--- NOTE | 2020-05-04 13:50 | P.PN ---
Progress Note - Text Progress Note Date: 05/04/20 Clinical Problems: schizophrenia, multiple episodes, acute episode, noncompliance with treatment, rule out major neurocognitive disorder, hypertension, COPD, Tobacco use disorder Interim history: I reviewed the medical record, interviewed the patient and discussed her treatment and treatment plan during team meeting. She denied problems or concerns although her speech was so disorganized I only understood occasional words. She denied that she felt tired or fatigued this morning. When I told her that her plans were to go home she replied that she lives in a [facility]. She complained about the [facility] particularly to residence for much younger. Mental status exam: She presented as a casually groomed, morbidly obese elderly woman who was pleasant on approach. She made eye contact and appeared to attend to interview. She had a blunted facial expression. Her speech was spontaneous, dysarthric and difficult to hear and understand. Her affect was blunted but stable and appropriate. She did not express suicidal ideation, wishes or homicidal ideation. She did not express feelings of hopelessness, helplessness or worthlessness. She expressed a delusional belief about the mole on the side of her. Her thinking is concrete, illogical and at times incoherent. She was responding to internal stimuli throughout much of the interview. Assessment: She remains severely and persistently mentally ill and minimally to moderately improve from admission. She is experiencing sedation from the clozapine. Plan: Continue inpatient treatment. Safety precautions. Continue Abilify 10 mg daily and clozapine to 75 mg at bedtime and titrated according to clinical response and tolerance. Monitor CBC with differential on a weekly basis. Discontinue Depakote 125 mg by mouth twice a day. Continue amantadine 100 mg twice a day.
[2020-05-04 17:36] LABS: Glucose,Whole Blood 113 mg/dL (75-99)
[2020-05-04 20:18] LABS: Glucose,Whole Blood 128 mg/dL (75-99)
[2020-05-04] MEDS: ATORVASTATIN 20 MG TAB PO SCH (20:53)
[2020-05-04] MEDS ORDERED: cloZAPine 25 MG TAB PO SCH ×2 (21:00)
[2020-05-05 07:48] LABS: Glucose,Whole Blood 137 mg/dL (75-99)
[2020-05-05] MEDS: LOSARTAN-HCTZ 50-12.5 MG 1 EACH TAB PO SCH (09:05)
[2020-05-05] MEDS: SYMBICORT 160-4.5 MCG INHALER INHALATION SCH ×3 (09:06→09:22)
[2020-05-05] MEDS: FUROSEMIDE 40 MG TAB PO SCH (09:07)
[2020-05-05] MEDS: AMANTADINE HCL 100 MG CAP PO SCH ×3 (09:07→09:22)
[2020-05-05] MEDS: GLIMEPIRIDE 1 MG TAB PO SCH ×2 (09:07→09:21)
[2020-05-05] MEDS: ERGOCALCIFEROL 50,000 UNIT CAP PO SCH (09:07)
[2020-05-05] MEDS: PSYLLIUM HUSK 100% 6 GM PACKET PO SCH (09:08)
[2020-05-05] MEDS: LINAGLIPTIN 5 MG TABLET PO SCH (09:08)
[2020-05-05] MEDS: NICOTINE 14MG/24HR PATCH TRANSDERM SCH (09:09)
[2020-05-05] MEDS: ARIPiprazole 10 MG TAB PO SCH (09:09)
[2020-05-05 09:16] VITALS: RESP 18
[2020-05-05] MEDS: metFORMIN 500 MG TAB PO SCH ×2 (09:18→09:21)
[2020-05-05 09:20] VITALS: BP 132/73; PULSE 114; TEMP 97.2
[2020-05-05] MEDS: ATORVASTATIN 20 MG TAB PO SCH (09:21)
[2020-05-05 13:00] LABS: Glucose,Whole Blood 121 mg/dL (75-99)
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
== END 2020-05-05 15:07 | disposition home or self-care (01) | DRG 885 ==
LOC: EC 12:35 → 3MHU 15:45
PROVIDERS: ADMIT Psychiatry & Neurology Psychiatry; ATTEND Psychiatry & Neurology Psychiatry
DX: F20.9 Schizophrenia, unspecified (principal); N39.0 Urinary tract infection, site not specified; E11.9 Type 2 diabetes mellitus without complications; E78.5 Hyperlipidemia, unspecified; F17.210 Nicotine dependence, cigarettes, uncomplicated; F31.9 Bipolar disorder, unspecified; G31.84 Mild cognitive impairment of uncertain or unknown etiology; I10 Essential (primary) hypertension; J44.9 Chronic obstructive pulmonary disease, unspecified; L02.92 Furuncle, unspecified; R32 Unspecified urinary incontinence; Y04.0XXD Assault by unarmed brawl or fight, subsequent encounter; Z87.81 Personal history of (healed) traumatic fracture; Z79.51 Long term (current) use of inhaled steroids; Z79.82 Long term (current) use of aspirin; Z79.84 Long term (current) use of oral hypoglycemic drugs; Z79.899 Other long term (current) drug therapy; Z91.19 Patient's noncompliance with other medical treatment and regimen; R45.1 Restlessness and agitation; R25.1 Tremor, unspecified
CPT/HCPCS: 36415; 80048; 80061; 80164; 80306; 80320; 81001; 83036; 84443; 85025; 87077; 87086; 87186; 99285

== ENCOUNTER 2021-04-17 07:07 | Day surgery (SDC) | payer MEDICARE, OTHER ==
[2021-04-12 13:23] VITALS: BMI 40.3
[~2021-04-17 07:07] MED LIST: LACTATED RINGERS 1,000 ML IV SCH
[2021-04-17 07:33] VITALS: TEMP 97.7
[2021-04-17 07:39] LABS: Glucose,Whole Blood 114 mg/dL (75-99)
[2021-04-17] MEDS ORDERED: PROPOFOL 10 MG/ML 20 ML VIAL IV ONE (08:03)
[2021-04-17 08:40] VITALS: RESP 16
--- NOTE | 2021-04-17 08:41 | P.PCN ---
Date of Procedure: 04/17/21 Description of Procedure: BRIEF HISTORY: Patient is a 61-year-old female presenting for outpatient colonoscopy for evaluation of positive cologuard. No prior colonoscopies reported. No family history of colon cancer. No other acute GI complaints. PROCEDURE PERFORMED: Colonoscopy with polypectomy. PREOPERATIVE DIAGNOSIS: Positive Cologuard, no prior colonoscopy. ESTIMATED BLOOD LOSS: Minimal. IV sedation per Anesthesia. PROCEDURE: After informed consent was obtained, the patient, was brought into the endoscopy unit. IV sedation was administered by Anesthesia under continuous monitoring. Digital rectal examination was normal. Initially the Olympus CF-190 flexible video colonoscope was then inserted in the rectum, gradually advanced into the cecum without any difficulty. Careful examination was performed as the scope was gradually being withdrawn. Ileocecal valve and the appendiceal orifice were visualized and appeared normal. Prep was poor with semisolid stool throughout the colon. Mucosa of the cecum, ascending colon, transverse colon, descending colon, sigmoid colon, and rectum could not be completely visualized secondary to poor prep. 2 sessile polyps measuring 8 mm and 7 mm in size removed from the ascending colon and ileocecal valve with cold snare polypectomy. Large 15 mm ascending colon polyp removed with hot snare polypectomy. Retroflexion was performed in the rectum and no lesions were seen. The patient tolerated the procedure well. IMPRESSION: Large ascending colon polyp removed with hot snare polypectomy. 2 sessile polyps removed with cold snare polypectomy from the ascending colon and ileocecal valve. Poor prep with incomplete visualization of the mucosa. RECOMMENDATIONS: Findings of this examination were discussed with the patient and her caregiver. Okay to resume diet. Okay to resume medications. Hold any anticoagulation for the next 48 hours. Recommend repeat colonoscopy in 6 months for poor prep with 2 day prep at that time. Await pathology from polypectomies.
[2021-04-17 08:53] VITALS: BP 126/81; PULSE 80
== END 2021-04-17 09:10 | disposition home or self-care (01) ==
LOC: ORWHC2ENDO 07:07
PROVIDERS: ATTEND Internal Medicine
DX: D12.2 Benign neoplasm of ascending colon (principal); I10 Essential (primary) hypertension; E11.9 Type 2 diabetes mellitus without complications; F20.9 Schizophrenia, unspecified; Z98.891 History of uterine scar from previous surgery; Z72.0 Tobacco use; Z79.84 Long term (current) use of oral hypoglycemic drugs; Z79.1 Long term (current) use of non-steroidal anti-inflammatories (NSAID); Z79.82 Long term (current) use of aspirin; Z79.899 Other long term (current) drug therapy; Z91.040 Latex allergy status; Z88.8 Allergy status to other drugs, medicaments and biological substances; Z91.018 Allergy to other foods
CPT/HCPCS: 88305; 45385; J2704

== ENCOUNTER 2021-11-05 08:37 | Inpatient (IN) | payer MEDICARE, OTHER ==
[2021-11-05] MEDS ORDERED: ALBUTEROL HFA INHALER INHALATION STA (08:49)
[2021-11-05] MEDS ORDERED: ACETAMINOPHEN TAB 500 MG TAB PO STA (08:49)
[2021-11-05] MEDS ORDERED: ALBUTEROL HFA INHALER INHALATION PRN (08:49)
[2021-11-05] MEDS ORDERED: ACETAMINOPHEN TAB 500 MG TAB PO PRN (08:49)
--- NOTE | 2021-11-05 08:53 | ED ---
General Adult HPI - General Chief complaint: Neuro Symptoms/Deficit Stated complaint: TRISTIAN Time Seen by Provider: 11/05/21 08:41 Source: patient, EMS, RN notes reviewed Mode of arrival: EMS Limitations: no limitations - History of Present Illness Initial comments: Patient is a pleasant 6 he 1-year-old female presenting to the emergency department with concerns for change in mental status. EMS arrived to patient's assisted living residence he. Patient was or confused than normal. Patient was found to be hypoxic. Patient does have history of emphysema. Patient admits to having some mild shortness of breath and feeling fatigued. Otherwise no com plaints. EMS applied 6 L nasal cannula with pulse ox still in the 80s. Patient did improve with 100% oxygen. Further history is somewhat limited. Patient is a poor historian. - Related Data Home Medications Medication Instructions Recorded Confirmed Ergocalciferol [Vitamin D2 50,000 unit PO FR 09/02/19 04/17/21 (DRISDOL)] metFORMIN HCL ER [Glucophage XR] 1,000 mg PO BID 09/02/19 04/17/21 Aspirin EC [Ecotrin] 325 mg PO DAILY PRN 04/20/20 04/12/21 Linagliptin [Tradjenta] 5 mg PO DAILY 04/20/20 04/17/21 Acetaminophen [Tylenol] 2 tab PO Q6H PRN 04/12/21 04/12/21 Ammonium Lactate Cream [Lac-Hydrin 1 applic TOPICAL BID 04/12/21 04/17/21 12% Cream] Beneprotein 7 gm PO DAILY 04/12/21 04/12/21 Divalproex ER [Depakote ER] 3 tab PO HS 04/12/21 04/17/21 Docusate [Colace] 100 mg PO DAILY PRN 04/12/21 04/12/21 Fiber Powder 1 dose PO DIRECTED 04/12/21 04/12/21 Furosemide [Lasix] 20 mg PO HS 04/12/21 04/17/21 Glimepiride [Amaryl] 2 mg PO BID 04/12/21 04/17/21 Ibuprofen [Motrin] 200 mg PO DIRECTED PRN 04/12/21 04/17/21 Ipratropium-Albuterol Nebulize 3 ml INHALATION DIRECTED 04/12/21 04/17/21 [Duoneb 0.5 mg-3 mg/3 ml Soln] Jay-Tin Liquid 30 ml PO DIRECTED PRN 04/12/21 04/12/21 Loperamide [Imodium] 2 mg PO DIRECTED PRN 04/12/21 04/12/21 Losartan-Hctz 50-12.5 mg [Hyzaar 1 tab PO DAILY 04/12/21 04/17/21 50-12.5] Magnesium Hydroxide [Milk of 1,200 mg PO DIRECTED PRN 04/12/21 04/12/21 Magnesia] Potassium Chloride [Klor-Con 20] 20 meq PO DAILY 04/12/21 04/12/21 Pseudoephedrine HCl [Sudogest] 60 mg PO DAILY PRN 04/12/21 04/12/21 Siltussin Sa 1 dose PO DIRECTED 04/12/21 04/12/21 cloZAPine [cloZAPine ODT] 200 mg PO HS 04/12/21 04/17/21 diphenhydrAMINE [Benadryl] 25 mg PO DAILY PRN 04/12/21 04/12/21 Previous Rx's Medication Instructions Recorded Albuterol Inhaler [Ventolin Hfa 2 puff INHALATION RT-QID PRN puff 02/27/20 Inhaler] Budesonide-Formot 160-4.5 Mcg 2 puff INHALATION RT-BID puff 02/27/20 [Symbicort 160-4.5 Mcg Inhaler] Furosemide [Lasix] 40 mg PO DAILY #30 tab 05/05/20 Allergies Allergy/AdvReac Type Severity Reaction Status Date / Time honey Allergy Unknown Verified 11/05/21 08:44 latex Allergy Unknown Verified 11/05/21 08:44 risperidone [From Risperdal] Allergy Unknown Verified 11/05/21 08:44 whey Allergy Unknown Verified 11/05/21 08:44 Review of Systems ROS Statement: Those systems with pertinent positive or pertinent negative responses have been documented in the HPI. ROS Other: All systems not noted in ROS Statement are negative. Constitutional: Denies: fever Eyes: Denies: eye pain ENT: Denies: ear pain Respiratory: Reports: as per HPI, cough, dyspnea Cardiovascular: Denies: chest pain Endocrine: Reports: fatigue Gastrointestinal: Denies: abdominal pain Genitourinary: Denies: dysuria Musculoskeletal: Denies: back pain Skin: Denies: rash Neurological: Reports: as per HPI Past Medical History Past Medical History: Diabetes Mellitus, Hypertension Additional Past Medical History / Comment(s): O2-2l per n/c hs prn History of Any Multi-Drug Resistant Organisms: None Reported Past Surgical History: Section Past Anesthesia/Blood Transfusion Reactions: No Reported Reaction Past Psychological History: Schizophrenia Smoking Status: Current every day smoker Past Alcohol Use History: None Reported Past Drug Use History: None Reported - Past Family History family Family Medical History: Unable to Obtain General Exam Limitations: no limitations General appearance: alert Head exam: Present: normocephalic Eye exam: Present: normal appearance, PERRL, EOMI ENT exam: Present: normal oropharynx Neck exam: Present: normal inspection Respiratory exam: Present: wheezes Cardiovascular Exam: Present: regular rate, normal rhythm GI/Abdominal exam: Present: soft. Absent: tenderness Extremities exam: Present: pedal edema (+1 bilateral). Absent: calf tenderness Neurological exam: Present: alert. Absent: motor sensory deficit Expanded Neurological exam: Present: protecting the airway Patient oriented to: Present: person, place Cranial nerves: EOM's Intact: Normal Motor strength exam: RUE: 5, LUE: 5, RLE: 5, LLE: 5 Eye Response: (4) open spontaneously Motor Response: (6) obeys commands Verbal Response: (4) confused conversation Psychiatric exam: Present: normal affect, normal mood Skin exam: Present: normal color Course Vital Signs 11/05/21 11/05/21 08:40 08:47 Temperature 100.5 F H Pulse Rate 101 H 97 Respiratory 25 H 22 Rate Blood Pressure 77/49 98/61 O2 Sat by Pulse 68 L 95 Oximetry EKG Findings - EKG Comments: EKG Findings:: Normal sinus rhythm with a rate of 99. OK 152. QRS 66. QT 268. QTC 472. Normal axis. Normal QRS. No acute ST change. Medical Decision Making - Medical Decision Making Patient placed on high flow nasal cannula with oxygen saturation 89%. Patient reevaluated and updated. Blood pressure stable. This practitioner has been paged for admission covering for Dr. Joe - Lab Data Result diagrams: 11/05/21 08:58 11/05/21 08:58 Lab Results 11/05/21 11/05/21 11/05/21 Range/Units 08:58 08:58 08:58 WBC 6.4 (3.8-10.6) k/uL RBC 3.70 L (3.80-5.40) m/uL Hgb 11.5 (11.4-16.0) gm/dL Hct 34.3 (34.0-46.0) % MCV 92.9 (80.0-100.0) fL MCH 31.0 (25.0-35.0) pg MCHC 33.4 (31.0-37.0) g/dL RDW 16.0 H (11.5-15.5) % Plt Count 185 (150-450) k/uL MPV 8.1 Neutrophils % 65 % Lymphocytes % 23 % Monocytes % 9 % Eosinophils % 0 % Basophils % 0 % Neutrophils # 4.2 (1.3-7.7) k/uL Lymphocytes # 1.5 (1.0-4.8) k/uL Monocytes # 0.6 (0-1.0) k/uL Eosinophils # 0.0 (0-0.7) k/uL Basophils # 0.0 (0-0.2) k/uL Poikilocytosis Slight PT 9.6 (9.0-12.0) sec INR 0.9 (<1.2) APTT 22.2 (22.0-30.0) sec Sodium 135 L (137-145) mmol/L Potassium 4.1 (3.5-5.1) mmol/L Chloride 94 L (98-107) mmol/L Carbon Dioxide 35 H (22-30) mmol/L Anion Gap 6 mmol/L BUN 20 H (7-17) mg/dL Creatinine 0.62 (0.52-1.04) mg/dL Est GFR (CKD-EPI)AfAm >90 (>60 ml/min/1.73 sqM) Est GFR (CKD-EPI)NonAf >90 (>60 ml/min/1.73 sqM) Glucose 162 H (74-99) mg/dL Plasma Lactic Acid Chapo (0.7-2.0) mmol/L Calcium 8.6 (8.4-10.2) mg/dL Magnesium 1.8 (1.6-2.3) mg/dL Total Bilirubin 0.7 (0.2-1.3) mg/dL AST 28 (14-36) U/L ALT 14 (4-34) U/L Alkaline Phosphatase 54 (38-126) U/L Lactate Dehydrogenase 793 H (313-618) U/L C-Reactive Protein 3.6 H (<1.0) mg/dL Total Protein 5.9 L (6.3-8.2) g/dL Albumin 3.4 L (3.5-5.0) g/dL Coronavirus (PCR) (Not Detectd) Influenza Type A RNA (Not Detectd) Influenza Type B (PCR) (Not Detectd) 11/05/21 11/05/21 11/05/21 Range/Units 08:58 08:58 08:58 WBC (3.8-10.6) k/uL RBC (3.80-5.40) m/uL Hgb (11.4-16.0) gm/dL Hct (34.0-46.0) % MCV (80.0-100.0) fL MCH (25.0-35.0) pg MCHC (31.0-37.0) g/dL RDW (11.5-15.5) % Plt Count (150-450) k/uL MPV Neutrophils % % Lymphocytes % % Monocytes % % Eosinophils % % Basophils % % Neutrophils # (1.3-7.7) k/uL Lymphocytes # (1.0-4.8) k/uL Monocytes # (0-1.0) k/uL Eosinophils # (0-0.7) k/uL Basophils # (0-0.2) k/uL Poikilocytosis PT (9.0-12.0) sec INR (<1.2) APTT (22.0-30.0) sec Sodium (137-145) mmol/L Potassium (3.5-5.1) mmol/L Chloride (98-107) mmol/L Carbon Dioxide (22-30) mmol/L Anion Gap mmol/L BUN (7-17) mg/dL Creatinine (0.52-1.04) mg/dL Est GFR (CKD-EPI)AfAm (>60 ml/min/1.73 sqM) Est GFR (CKD-EPI)NonAf (>60 ml/min/1.73 sqM) Glucose (74-99) mg/dL Plasma Lactic Acid Chapo 2.2 H* (0.7-2.0) mmol/L Calcium (8.4-10.2) mg/dL Magnesium (1.6-2.3) mg/dL Total Bilirubin (0.2-1.3) mg/dL AST (14-36) U/L ALT (4-34) U/L Alkaline Phosphatase (38-126) U/L Lactate Dehydrogenase (313-618) U/L C-Reactive Protein (<1.0) mg/dL Total Protein (6.3-8.2) g/dL Albumin (3.5-5.0) g/dL Coronavirus (PCR) Detected A (Not Detectd) Influenza Type A RNA Not Detected (Not Detectd) Influenza Type B (PCR) Not Detected (Not Detectd) - Radiology Data Radiology results: image reviewed (Cardiac megaly with bilateral multifocal opacity) Disposition Clinical Impression: COVID-19, Hypoxia Disposition: ADMITTED IP TO THIS [facility] Condition: Serious Is patient prescribed a controlled substance at d/c from ED?: No Referrals: Ponce West MD [Primary Care Provider] - 1-2 days Decision Time: 09:37
[2021-11-05 09:12] LABS: Basophils % (A) 0 %; Eosinophils % (A) 0 %; HCT 34.3 % (34.0-46.0); HGB 11.5 gm/dL (11.4-16.0); Lymphocytes # (A) 1.5 k/uL (1.0-4.8); Lymphocytes % (A) 23 %; MCHC 33.4 g/dL (31.0-37.0); MCV 92.9 fL (80.0-100.0); Mean Platelet Volume 8.1; Monocytes # (A) 0.6 k/uL (0-1.0); Monocytes % (A) 9 %; Neutrophils # (A) 4.2 k/uL (1.3-7.7); Neutrophils % (A) 65 %; Platelet Count 185 k/uL (150-450); Poikilocytosis Slight; WBC 6.4 k/uL (3.8-10.6)
--- NOTE | 2021-11-05 09:15 | XR ---
EXAMINATION TYPE: XR chest 1V portable DATE OF EXAM: 11/05/2021 COMPARISON: Chest x-ray and CTA chest February 26, 2020 HISTORY: Shortness of breath cough and congestion. Suspected covid. TECHNIQUE: 2 AP portable frontal upright view of the chest are obtained. FINDINGS: There are chronic of emphysematous and parenchymal changes with areas of increased opacity in the mid to lower lungs left greater than right and greater in the periphery. Mild cardiomegaly redemonstrated. The osseous structures are intact. IMPRESSION: Chronic changes and mild cardiomegaly with left greater than right bilateral multifocal increased opacities consistent with covid-19 infection.
[2021-11-05 09:21] LABS: INR 0.9 (<1.2); Partial Thromboplastin Time 22.2 sec (22.0-30.0); Prothrombin Time 9.6 sec (9.0-12.0)
[2021-11-05 09:24] LABS: ALT 14 U/L (4-34); African American GFR (CKD) >90 (>60 ml/min/1.73 sqM); Albumin 3.4 g/dL (3.5-5.0); Anion Gap 6 mmol/L; Blood Urea Nitrogen 20 mg/dL (7-17); C Reactive Protein 3.6 mg/dL (<1.0); Calcium 8.6 mg/dL (8.4-10.2); Carbon Dioxide 35 mmol/L (22-30); Chloride 94 mmol/L (98-107); Glucose 162 mg/dL (74-99); Non-African American GFR(CKD) >90 (>60 ml/min/1.73 sqM); Sodium 135 mmol/L (137-145); Total Bilirubin 0.7 mg/dL (0.2-1.3); Total Protein 5.9 g/dL (6.3-8.2)
[2021-11-05 09:25] LABS: AST 28 U/L (14-36); Magnesium 1.8 mg/dL (1.6-2.3); Potassium 4.1 mmol/L (3.5-5.1)
[2021-11-05 09:26] LABS: Alkaline Phosphatase 54 U/L (38-126); LDH 793 U/L (313-618)
[2021-11-05] MEDS ORDERED: NALOXONE 0.4 MG/ML 1 ML VIAL IV PRN (09:38)
[2021-11-05] MEDS: DEXAMETHASONE SOD PHOSPHATE 10 MG/ML 1 ML VIAL IVP SCH (09:54)
[2021-11-05] MEDS: ZINC SULFATE 220 MG CAP PO SCH (10:16)
[2021-11-05] MEDS: CHOLECALCIFEROL 125 MCG (5000 IU) TABLET PO SCH (10:17)
[2021-11-05] MEDS: ASCORBIC ACID 500 MG TAB PO SCH ×3 (10:17→22:11)
[2021-11-05] MEDS: ALBUTEROL HFA INHALER INHALATION SCH ×2 (11:19→17:44)
[2021-11-05] MEDS ORDERED: FIBER PO PRN (11:21)
[2021-11-05] MEDS: SYMBICORT 160-4.5 MCG INHALER INHALATION SCH ×2 (11:38→18:26)
[2021-11-05 13:22] LABS: Glucose,Whole Blood 182 mg/dL (75-99)
[2021-11-05] MEDS: SODIUM CHLORIDE 0.9% 1,000 ML IV SCH (14:24)
[2021-11-05] MEDS: INSULIN ASPART (NovoLOG) 100 UNIT/ML VIAL SQ SCH ×2 (14:26→18:58)
[2021-11-05 18:28] LABS: Glucose,Whole Blood 178 mg/dL (75-99)
[2021-11-05 18:57] LABS: ABG Base Excess 14.6 mmol/L; ABG Oxygen Saturation 98.9 % (94-97); ABG PH 7.36 (7.35-7.45); ABG PO2 120 mmHg (83-108); ABG TCO2 42 mmol/L (19-24); Allen Test Performed? Yes
[2021-11-05] MEDS: ENOXAPARIN 40 MG/0.4 ML SYRINGE SQ SCH (18:58)
[2021-11-05 19:00] LABS: ABG HCO3 40 mmol/L (21-25); ABG PCO2 72 mmHg (35-45)
--- NOTE | 2021-11-05 19:39 | P.CNPUL ---
History of Present Illness Consult date: 11/05/21 Reason for consult: pneumonia History of present illness: 61-year-old female patient arrived to the MRSA problem because of difficulty in breathing and some concerns of multiple mental status. The patient arrived to the ED from an assisted living residence. The patient was found to be confused and the patient was also found to be hypoxemic. The patient was applied on oxygen as the patient was found to be hypoxic and a pulse ox of 80% and she was given 6 L about 2 by nasal cannula and his saturation improved. Subsequently, the oxygen flow was further titrated and was brought up to 15 L per minute nasal cannula high flow. The patient herself is a poor historian. There is an underlying history of COPD hypertension and diabetes mellitus. In the ED, the patient was also found to be febrile with a temperature up 100.5. Initial blood pressure was 77/49 subsequently improved to be brought up to 98/61. The patient otherwise I, 6.4 with a hemoglobin of 11.5 and a platelet count of 185, BUN was at 20 with a creatinine of 0.6 and sodium was at 135 with a glucose level of 162. Liver function tests were essentially within normal limits. LDH was 793, CRP was at 3.6, the patient to not be possible COVID 19. This was positive by P CR. Lactic acid level was at 2.2. The patient's EKG showed a normal sinus rhythm. No acute ST segment changes. The chest x-ray showed cardiomegaly. There was also some multifocal bilateral pulmonary infiltrates more so on the left consistent with COVID 19 infection. Based on that, the patient was hospitalized. The patient was started on Decadron and currently she doesn't 63 g IV every 24 hours. Note that the patient has history of schizophrenia and severely impaired due to her mental illness. She lives in an [facility] home. She has been maintained on various psychotropic medication. She has had previous hospitalization psychiatric unit. She has had previous history of psychosis. Review of Systems ROS unobtainable: due to mental status Past Medical History Past Medical History: COPD, Diabetes Mellitus, Hypertension Additional Past Medical History / Comment(s): O2-2l per n/c hs prn , history of schizophrenia, morbid obesity with a BMI of 39.2 History of Any Multi-Drug Resistant Organisms: None Reported Past Surgical History: Section Past Anesthesia/Blood Transfusion Reactions: No Reported Reaction Past Psychological History: Schizophrenia Smoking Status: Current every day smoker Past Alcohol Use History: None Reported Past Drug Use History: None Reported - Past Family History family Family Medical History: Unable to Obtain Medications and Allergies Home Medications Medication Instructions Recorded Confirmed Type Ergocalciferol [Vitamin D2 50,000 unit PO FR@0800 09/02/19 11/05/21 History (DRISDOL)] Aspirin EC [Ecotrin] 325 mg PO DAILY PRN 04/20/20 11/05/21 History Linagliptin [Tradjenta] 5 mg PO DAILY@0800 04/20/20 11/05/21 History Acetaminophen [Tylenol] 1,000 mg PO Q6H PRN MDD 8 TABS 04/12/21 11/05/21 History Ammonium Lactate Cream [Lac-Hydrin 1 applic TOPICAL BID@0800,2100 04/12/21 11/05/21 History 12% Cream] Beneprotein 7 gm PO DAILY@0800 04/12/21 11/05/21 History Divalproex ER [Depakote ER] 1,500 tab PO HS 04/12/21 11/05/21 History Docusate [Colace] 100 mg PO DAILY PRN 04/12/21 11/05/21 History Fiber Powder 1 dose PO DAILY PRN 04/12/21 11/05/21 History Furosemide [Lasix] 20 mg PO DAILY@1700 04/12/21 11/05/21 History Glimepiride [Amaryl] 2 mg PO BID@0800,1700 04/12/21 11/05/21 History Ipratropium-Albuterol Nebulize 3 ml INHALATION RT-QID@,,,04/12/21 11/05/21 History [Duoneb 0.5 mg-3 mg/3 ml Soln] Jay-Tin Liquid 30 ml PO DIRECTED PRN 04/12/21 11/05/21 History Loperamide [Imodium] 2 mg PO DIRECTED PRN 04/12/21 11/05/21 History Losartan-Hctz 50-12.5 mg [Hyzaar 1 tab PO DAILY@0800 04/12/21 11/05/21 History 50-12.5] Potassium Chloride [Klor-Con 20] 20 meq PO DAILY@0800 04/12/21 11/05/21 History Pseudoephedrine HCl [Sudogest] 60 mg PO DAILY PRN 04/12/21 11/05/21 History Siltussin Sa 1 dose PO DIRECTED 04/12/21 11/05/21 History diphenhydrAMINE [Benadryl] 25 mg PO DAILY PRN 04/12/21 11/05/21 History Albuterol Sulfate [Proair Hfa] 2 puff INHALATION RT-Q6H PRN 11/05/21 11/05/21 History Atorvastatin Calcium [Lipitor] 20 mg PO HS 11/05/21 11/05/21 History Budesonide-Formot 160-4.5 Mcg 2 puff INHALATION RT-BID@11/05/21 11/05/21 History [Symbicort 160-4.5 Mcg Inhaler] Furosemide [Lasix] 40 mg PO DAILY@0800 11/05/21 11/05/21 History Ibuprofen [Motrin Ib] 200 mg PO Q6H PRN 11/05/21 11/05/21 History Stomach Relief Susp 30 ml PO DIRECTED PRN 11/05/21 11/05/21 History cloZAPine [Clozaril] 200 mg PO HS 11/05/21 11/05/21 History metFORMIN HCL [Glucophage] 1,000 mg PO BID 11/05/21 11/05/21 History Allergies Allergy/AdvReac Type Severity Reaction Status Date / Time honey Allergy Unknown Verified 11/05/21 10:11 latex Allergy Unknown Verified 11/05/21 10:11 risperidone [From Risperdal] Allergy Unknown Verified 11/05/21 10:11 whey Allergy Unknown Verified 11/05/21 10:11 Physical Exam Vitals: Vital Signs Temp Pulse Resp BP Pulse Ox 11/05/21 16:00 79 20 110/46 96 11/05/21 13:00 98.9 F 96 20 117/65 94 L 11/05/21 10:33 25 H 11/05/21 09:44 92 94/56 91 L 11/05/21 08:47 97 22 98/61 95 11/05/21 08:40 100.5 F H 101 H 25 H 77/49 68 L Intake and Output 11/05/21 11/05/21 11/05/21 06:59 14:59 22:59 Other: Weight 113.398 kg General: Disheveled female, no distress, appears older than stated age, morbidly obese, carries ability mass index of 39.2, breathing is mildly labored and the patient is currently on 15 L of oxygen by nasal cannula Derm: Bilateral lower extremity chronic venous stasis changes with 2+ lower extremity pitting edema, warm, dry Head: atraumatic, normocephalic, symmetric Eyes: EOMI, no lid lag, anicteric sclera, pupils equal round reactive to light ENT: Nose and ears atraumatic, no thrush, no pharyngeal erythema Neck: No thyromegaly, no cervical lymphadenopathy, trachea midline, supple Mouth: no lip lesion, mucus membranes dry Cardiovascular: S1S2 reg, no murmur, positive posterior tibial pulse bilateral, bilateral lower extremity 2+ pitting edema, capillary refill less than 2 seconds Lungs: Diminished breath along with crackles at lung bases bilaterally, no rhonchi, no rales , no accessory muscle use Abdominal: soft, nontender to palpation, no guarding, no appreciable organomegaly, normal bowel sounds Ext: no gross muscle atrophy, muscle strength 5 out of 5 in all 4 extremities grossly, no contractures, Neuro: CN II-XI grossly intact, light touch intact all 4 extremities Results - Laboratory Findings CBC and BMP: 11/05/21 08:58 11/05/21 08:58 PT/INR, D-dimer PT 9.6 sec (9.0-12.0) 11/05/21 08:58 INR 0.9 (<1.2) 11/05/21 08:58 Abnormal lab findings: Abnormal Labs 11/05/21 11/05/21 11/05/21 08:58 08:58 08:58 RBC 3.70 L RDW 16.0 H Sodium 135 L Chloride 94 L Carbon Dioxide 35 H BUN 20 H Glucose 162 H POC Glucose (mg/dL) Plasma Lactic Acid Chapo 2.2 H* Ferritin 306.0 H Lactate Dehydrogenase 793 H C-Reactive Protein 3.6 H Total Protein 5.9 L Albumin 3.4 L Coronavirus (PCR) 11/05/21 11/05/21 11/05/21 08:58 11:41 13:21 RBC RDW Sodium Chloride Carbon Dioxide BUN Glucose POC Glucose (mg/dL) 182 H Plasma Lactic Acid Chapo 2.8 H* Ferritin Lactate Dehydrogenase C-Reactive Protein Total Protein Albumin Coronavirus (PCR) Detected A 11/05/21 14:11 RBC RDW Sodium Chloride Carbon Dioxide BUN Glucose POC Glucose (mg/dL) Plasma Lactic Acid Chapo 2.8 H* Ferritin Lactate Dehydrogenase C-Reactive Protein Total Protein Albumin Coronavirus (PCR) - Diagnostic Findings Chest x-ray: image reviewed Assessment and Plan Plan: 1 acute hypoxic respiratory failure. The patient presents emergency with altered mentation and the patient was quite hypoxic and the patient was found to have a COVID 19 related pneumonia with bilateral pulmonary infiltrates left more than right. The patient is currently on 15 L by nasal cannula, started on Decadron. 2 acute COVID 19 related pneumonia 3 mild lactic acidosis 4 mild elevation of the inflammatory markers secondary to above 5 history of schizophrenia with significant impairment in her functionality due to mental health 6 altered mentation secondary to schizophrenia and possibly further complimented by development of hypoxemia, but admission. Neurologic exam is nonfocal 7 diabetes mellitus 8 hypertension 9 hyperlipidemia 10 morbid obesity with a BMI of 39.2 11 chronic lower extremity edema bilaterally 12 COPD Plan Titrate oxygen flow to maintain a saturation above 90% currently on 15 L continue Decadron 6 mg IV every 24 hours Exact onset of symptoms with COVID 19 is not known. The patient obviously is not a candidate for Remdesivir Check pro calcitonin level Check d-dimer Put the patient on Lovenox 40 prophylaxis 40 mg subcu Abdomen multiple vitamins including vitamin C and vitamin D and zinc Resume all medications Monitor blood sugar and give the patient is slight scale insulin coverage in addition to her routine diabetic medications Hydrate the patient with normal saline at the rate of 100 mL an hour for the next 24 hours Resume Symbicort and albuterol HFA [id number] as needed We'll continue to follow
[2021-11-05] MEDS ORDERED: ALBUTEROL HFA INHALER INHALATION SCH (20:00)
[2021-11-05] MEDS: ATORVASTATIN 20 MG TAB PO SCH ×2 (21:26→22:12)
[2021-11-05] MEDS: DIVALPROEX ER 500 MG TAB.ER.24H PO SCH ×2 (21:26→22:12)
[2021-11-05] MEDS: AMMONIUM LACTATE 12% CREAM 140 GM TUBE TOPICAL SCH (21:27)
--- NOTE | 2021-11-05 21:38 | P.HPIM ---
History of Present Illness H&P Date: 11/05/21 Chief Complaint: Short of breath History of presenting complaint This is a 61-year-old patient, follows with Dr. West from visiting physicians. Chronic stable medical conditions include diabetes, hypertension, schizophrenia, morbid obesity, smoker. She was sent in from the assisted living. Patient's found to be confused different from baseline. She was found to have a pulse ox appears to be in the 50s. Patient be short of breath and tired. I saw the patient in the ER. Patient somewhat delirious. Initially he was supplied 6 L of nasal cannula. 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 Unable to obtain any detailed history from the patient. Patient is a cough. She did have some fever. Nurse informed me that patient did not take the COVID-19 vaccine. And patient did positive for COVID-19 in the ER. Patient on 15 L high flow oxygen Review of systems difficult to obtain as patient is somewhat delirious additional information above Past medical history to include: COPD, diabetes, hypertension, morbid obesity, home oxygen 2 L, schizophrenia, morbid obesity Social history: Assisted living.. Smokes at least a pack and a half a day since the age of 15. That is about 45 years. No alcohol. Family history: Patient cannot tell Physical examination: VITAL SIGNS: Temperature 100.5, 101, 25, 77/49, 68% on room air upon presentation GENERAL: BMI 39.2, laying in bed, oxygen, tired delirious. EYES: Pupils equal. Conjunctiva normal. HEENT: External appearance of nose and ears normal, oral cavity dry mucous membranes. NECK: JVD unable to assess; masses not palpable. HEART: Heart sounds distant; no edema. LUNGS:[ Respiratory rate increased, ecstasy muscles are working,; distant breath sounds, some expiratory crackles ABDOMEN: Soft, nontender, liver spleen not palpable, no masses palpable. PSYCH: Patient is able to answer occasional questions. Delirious. Altered sensoriuml. NEUROLOGICAL: Cranial nerves grossly intact; no facial asymmetry, power and sensation grossly intact. Altered sensorium LYMPHATICS: No lymph nodes palpable in the axilla and neck INVESTIGATIONS, reviewed in the clinical context: White count 6.4 hemoglobin 11.5 platelets 185 sodium 135 potassium 4.1 bicarb 35 creatinine 0.62 Lactic acid 2.2 CRP 3.6 procalcitonin 0.03 Coronavirus [PCR]: Detected Influenza type A/type B: Not detected EKG tracing personally reviewed by me-not a good quality EKG. Sinus rhythm. Nonspecific ST segment changes Chest x-ray film personally reviewed by me-bilateral lower zone infiltrates Assessment and plan: -Acute severe COVID 19 pneumonitis bilateral. In a non-revaccinate patient. Vitamin C, vitamin D, zinc, dexamethasone. Subcu Lovenox -Acute severe hypoxic respiratory failure from COVID 19 pneumonitis Currently on high flow 15 L oxygen -Chronic nicotine dependence, cigarette smoker Nicotine patch -Acute COPD exacerbation in a current smoker Albuterol 4 puffs every 4 with spacer. Dexamethasone. -Acute delirium/metabolic encephalopathy from hypoxia Follow clinically -Schizophrenia: Depakote ER, Clozaril -Hyperlipidemia Lipitor 20 mg daily at bedtime -Diabetes mellitus type 2 on oral hypoglycemic Orloff oral hypoglycemic. Follow Accu-Cheks and sliding scale insulin. Expect Accu-Cheks to raise in setting of steroids. -Obesity BMI 39.2 Weight loss measures down the road -Chronic hypoxic respiratory failure on 2 L nasal cannula from underlying COPD Dexamethasone. Vitamin C vitamin D. Zinc. Subcu Lovenox. Resume home medications. Hold oral hypoglycemic. Follow Accu-Cheks and sliding insulin. Pulmonary consulted. Given the complexity and severity of patient's condition expect the patient to be in the hospital at least for 2 overnights Past Medical History Past Medical History: Diabetes Mellitus, Hypertension Additional Past Medical History / Comment(s): O2-2l per n/c hs prn History of Any Multi-Drug Resistant Organisms: None Reported Past Surgical History: Section Past Anesthesia/Blood Transfusion Reactions: No Reported Reaction Past Psychological History: Schizophrenia Smoking Status: Current every day smoker Past Alcohol Use History: None Reported Past Drug Use History: None Reported - Past Family History family Family Medical History: Unable to Obtain Medications and Allergies Home Medications Medication Instructions Recorded Confirmed Type Ergocalciferol [Vitamin D2 50,000 unit PO FR@0800 09/02/19 11/05/21 History (ISDOL)] Aspirin EC [Ecotrin] 325 mg PO DAILY PRN 04/20/20 11/05/21 History Linagliptin [Tradjenta] 5 mg PO DAILY@0800 04/20/20 11/05/21 History Acetaminophen [Tylenol] 1,000 mg PO Q6H PRN MDD 8 TABS 04/12/21 11/05/21 History Ammonium Lactate Cream [Lac-Hydrin 1 applic TOPICAL BID@0800,2100 04/12/21 11/05/21 History 12% Cream] Beneprotein 7 gm PO DAILY@0800 04/12/21 11/05/21 History Divalproex ER [Depakote ER] 1,500 tab PO HS 04/12/21 11/05/21 History Docusate [Colace] 100 mg PO DAILY PRN 04/12/21 11/05/21 History Fiber Powder 1 dose PO DAILY PRN 04/12/21 11/05/21 History Furosemide [Lasix] 20 mg PO DAILY@1700 04/12/21 11/05/21 History Glimepiride [Amaryl] 2 mg PO BID@0800,1700 04/12/21 11/05/21 History Ipratropium-Albuterol Nebulize 3 ml INHALATION RT-QID@,,,04/12/21 11/05/21 History [Duoneb 0.5 mg-3 mg/3 ml Soln] Jay-Tin Liquid 30 ml PO DIRECTED PRN 04/12/21 11/05/21 History Loperamide [Imodium] 2 mg PO DIRECTED PRN 04/12/21 11/05/21 History Losartan-Hctz 50-12.5 mg [Hyzaar 1 tab PO DAILY@0800 04/12/21 11/05/21 History 50-12.5] Potassium Chloride [Klor-Con 20] 20 meq PO DAILY@0800 04/12/21 11/05/21 History Pseudoephedrine HCl [Sudogest] 60 mg PO DAILY PRN 04/12/21 11/05/21 History Siltussin Sa 1 dose PO DIRECTED 04/12/21 11/05/21 History diphenhydrAMINE [Benadryl] 25 mg PO DAILY PRN 04/12/21 11/05/21 History Albuterol Sulfate [Proair Hfa] 2 puff INHALATION RT-Q6H PRN 11/05/21 11/05/21 History Atorvastatin Calcium [Lipitor] 20 mg PO HS 11/05/21 11/05/21 History Budesonide-Formot 160-4.5 Mcg 2 puff INHALATION RT-BID@,11/05/21 11/05/21 History [Symbicort 160-4.5 Mcg Inhaler] Furosemide [Lasix] 40 mg PO DAILY@0800 11/05/21 11/05/21 History Ibuprofen [Motrin Ib] 200 mg PO Q6H PRN 11/05/21 11/05/21 History Stomach Relief Susp 30 ml PO DIRECTED PRN 11/05/21 11/05/21 History cloZAPine [Clozaril] 200 mg PO HS 11/05/21 11/05/21 History metFORMIN HCL [Glucophage] 1,000 mg PO BID 11/05/21 11/05/21 History Allergies Allergy/AdvReac Type Severity Reaction Status Date / Time honey Allergy Unknown Verified 11/05/21 10:11 latex Allergy Unknown Verified 11/05/21 10:11 risperidone [From Risperdal] Allergy Unknown Verified 11/05/21 10:11 whey Allergy Unknown Verified 11/05/21 10:11 Physical Exam Vitals: Vital Signs Temp Pulse Resp BP Pulse Ox 11/05/21 10:33 25 H 11/05/21 09:44 92 94/56 91 L 11/05/21 08:47 97 22 98/61 95 11/05/21 08:40 100.5 F H 101 H 25 H 77/49 68 L Intake and Output 11/04/21 11/05/21 11/05/21 22:59 06:59 14:59 Other: Weight 113.398 kg Results CBC & Chem 7: 11/05/21 08:58 11/05/21 08:58 Labs: Abnormal Lab Results - Last 24 Hours (Table) 11/05/21 11/05/21 11/05/21 Range/Units 08:58 08:58 08:58 RBC 3.70 L (3.80-5.40) m/uL RDW 16.0 H (11.5-15.5) % Sodium 135 L (137-145) mmol/L Chloride 94 L (98-107) mmol/L Carbon Dioxide 35 H (22-30) mmol/L BUN 20 H (7-17) mg/dL Glucose 162 H (74-99) mg/dL Plasma Lactic Acid Chapo 2.2 H* (0.7-2.0) mmol/L Lactate Dehydrogenase 793 H (313-618) U/L C-Reactive Protein 3.6 H (<1.0) mg/dL Total Protein 5.9 L (6.3-8.2) g/dL Albumin 3.4 L (3.5-5.0) g/dL Coronavirus (PCR) (Not Detectd) 11/05/21 Range/Units 08:58 RBC (3.80-5.40) m/uL RDW (11.5-15.5) % Sodium (137-145) mmol/L Chloride (98-107) mmol/L Carbon Dioxide (22-30) mmol/L BUN (7-17) mg/dL Glucose (74-99) mg/dL Plasma Lactic Acid Chapo (0.7-2.0) mmol/L Lactate Dehydrogenase (313-618) U/L C-Reactive Protein (<1.0) mg/dL Total Protein (6.3-8.2) g/dL Albumin (3.5-5.0) g/dL Coronavirus (PCR) Detected A (Not Detectd)
[2021-11-05] MEDS: cloZAPine 100 MG TAB PO SCH (22:10)
[2021-11-06] MEDS: ALBUTEROL HFA INHALER INHALATION SCH ×8 (01:58→23:56)
[2021-11-06] MEDS ORDERED: PROTEIN SUPPLEMENT PO SCH (08:00)
[2021-11-06] MEDS: SYMBICORT 160-4.5 MCG INHALER INHALATION SCH ×2 (08:46→18:55)
[2021-11-06] MEDS: ASCORBIC ACID 500 MG TAB PO SCH ×2 (09:14→21:36)
[2021-11-06] MEDS: CHOLECALCIFEROL 125 MCG (5000 IU) TABLET PO SCH (09:14)
[2021-11-06] MEDS: DEXAMETHASONE SOD PHOSPHATE 10 MG/ML 1 ML VIAL IVP SCH (09:14)
[2021-11-06] MEDS: LINAGLIPTIN 5 MG TABLET PO SCH (09:14)
[2021-11-06] MEDS: ZINC SULFATE 220 MG CAP PO SCH (09:14)
[2021-11-06] MEDS: ENOXAPARIN 40 MG/0.4 ML SYRINGE SQ SCH ×2 (09:15→09:20)
[2021-11-06] MEDS: AMMONIUM LACTATE 12% CREAM 140 GM TUBE TOPICAL SCH ×2 (09:22→21:40)
--- NOTE | 2021-11-06 10:55 | P.PN ---
Subjective Progress Note Date: 11/06/21 On today's evaluation of 11/06/2021, the patient is being seen in follow-up in the emergency department. The patient is still in the ED and the patient is being admitted to the hospital. Overnight, we drop the FiO2 down to 12 L and the patient is currently back up to 15 L per minute nasal cannula. The patient's pulse ox is 94%. The patient remains on Decadron. She had breakfast this morning. Denies having any worsening shortness of breath. She has limited cough. No significant sputum production. She is resting comfortably in bed. No signs of any CO2 narcosis. The blood gases from yesterday showed adequate oxygenation and there was also adequate acid-base status. The patient is also on Lovenox. OUTPATIENT PSYCHIATRIC MEDICATIONS HAVE BEEN RESUMED ON THIS PATIENT. Objective - Vital Signs Vital signs: Vital Signs Temp 98.7 F 11/06/21 09:22 Pulse 91 11/06/21 09:22 Resp 20 11/06/21 09:22 BP 97/60 11/06/21 09:22 Pulse Ox 93 L 11/06/21 09:22 Intake & Output 11/05/21 11/06/21 11/06/21 18:59 06:59 18:59 Output Total 0 Balance 0 Weight 113.398 kg Output: Urine 0 - Exam General: Disheveled female, no distress, appears older than stated age, morbidly obese, carries ability mass index of 39.2, breathing is mildly labored and the patient is currently on 15 L of oxygen by nasal cannula Derm: Bilateral lower extremity chronic venous stasis changes with 2+ lower extremity pitting edema, warm, dry Head: atraumatic, normocephalic, symmetric Eyes: EOMI, no lid lag, anicteric sclera, pupils equal round reactive to light ENT: Nose and ears atraumatic, no thrush, no pharyngeal erythema Neck: No thyromegaly, no cervical lymphadenopathy, trachea midline, supple Mouth: no lip lesion, mucus membranes dry Cardiovascular: S1S2 reg, no murmur, positive posterior tibial pulse bilateral, bilateral lower extremity 2+ pitting edema, capillary refill less than 2 seconds Lungs: Diminished breath along with crackles at lung bases bilaterally, no rhonchi, no rales , no accessory muscle use Abdominal: soft, nontender to palpation, no guarding, no appreciable organomegaly, normal bowel sounds Ext: no gross muscle atrophy, muscle strength 5 out of 5 in all 4 extremities grossly, no contractures, Neuro: CN II-XI grossly intact, light touch intact all 4 extremities - Labs CBC & Chem 7: 11/05/21 08:58 11/05/21 08:58 Labs: Abnormal Lab Results - Last 24 Hours (Table) 11/05/21 11/05/21 11/05/21 Range/Units 08:58 11:41 13:21 ABG pCO2 (35-45) mmHg ABG pO2 (83-108) mmHg ABG HCO3 (21-25) mmol/L ABG Total CO2 (19-24) mmol/L ABG O2 Saturation (94-97) % POC Glucose (mg/dL) 182 H (75-99) mg/dL Plasma Lactic Acid Chapo 2.8 H* (0.7-2.0) mmol/L Ferritin 306.0 H (10.0-291.0) ng/mL 11/05/21 11/05/21 11/05/21 Range/Units 14:11 18:26 18:51 ABG pCO2 72 H* (35-45) mmHg ABG pO2 120 H (83-108) mmHg ABG HCO3 40 H* (21-25) mmol/L ABG Total CO2 42 H (19-24) mmol/L ABG O2 Saturation 98.9 H (94-97) % POC Glucose (mg/dL) 178 H (75-99) mg/dL Plasma Lactic Acid Chapo 2.8 H* (0.7-2.0) mmol/L Ferritin (10.0-291.0) ng/mL Assessment and Plan Plan: 1 acute hypoxic respiratory failure. The patient presents emergency with altered mentation and the patient was quite hypoxic and the patient was found to have a COVID 19 related pneumonia with bilateral pulmonary infiltrates left more than right. The patient is currently on 15 L by nasal cannula, started on Decadron. 2 acute COVID 19 related pneumonia 3 mild lactic acidosis 4 mild elevation of the inflammatory markers secondary to above 5 history of schizophrenia with significant impairment in her functionality due to mental health 6 altered mentation secondary to schizophrenia and possibly further complimented by development of hypoxemia, but admission. Neurologic exam is nonfocal 7 diabetes mellitus 8 hypertension 9 hyperlipidemia 10 morbid obesity with a BMI of 39.2 11 chronic lower extremity edema bilaterally 12 COPD Plan Titrate oxygen flow to maintain a saturation above 90% currently on 15 L try to titrate the patient on 12 L if possible as long as she is able to maintain a saturation above 90%. continue Decadron 6 mg IV every 24 hours Exact onset of symptoms with COVID 19 is not known. Not a candidate for Remdesivir Check pro calcitonin level is low at 0.03 Check d-dimer is low at 0.5 Put the patient on Lovenox 40 prophylaxis 40 mg subcu Abdomen multiple vitamins including vitamin C and vitamin D and zinc Resume all medications Monitor blood sugar and give the patient is slight scale insulin coverage in add ition to her routine diabetic medications Hydrate the patient with normal saline at the rate of 100 mL an hour for the next 24 hours Resume Symbicort and albuterol HFA [id number] as needed We'll continue to follow
[2021-11-06 12:32] LABS: Glucose,Whole Blood 194 mg/dL (75-99)
[2021-11-06] MEDS: INSULIN ASPART (NovoLOG) 100 UNIT/ML VIAL SQ SCH ×3 (12:41→18:27)
--- NOTE | 2021-11-06 13:57 | P.PN ---
Progress Note - Text Progress Note Date: 11/06/21 Chief Complaint: Short of breath History of presenting complaint This is a 61-year-old patient, follows with Dr. West from visiting physicians. Chronic stable medical conditions include diabetes, hypertension, schizophrenia, morbid obesity, smoker. She was sent in from the assisted living. Patient's found to be confused different from baseline. She was found to have a pulse ox appears to be in the 50s. Patient be short of breath and tired. I saw the patient in the ER. Patient somewhat delirious. Initially he was supplied 6 L of nasal cannula. He did order picker to 100%. Unable to obtain any detailed history from the patient. Patient is a cough. She did have some fever. Nurse informed me that patient did not take the COVID-19 vaccine. And patient did positive for COVID-19 in the ER. Patient on 15 L high flow oxygen. Admitted with acute COVID-19 bilateral pneumonitis, acute hypoxic respiratory failure, acute delirium/encephalopathy from hypoxia, acute COPD exacerbation. Place and IV fluids, high flow nasal cannula. Dexamethasone. Symbicort, Chapo tolin. Subcu Lovenox. November 06: More awake today. Hungry. Eating. On 13 L of high flow nasal cannula. Answering questions bit more appropriately. Short of breath. Tired. Review of systems: Was done for constitutional, cardiovascular, GI, pulmonary. relevant finding as above Active Medications Acetaminophen (Acetaminophen Tab 500 Mg Tab) 1,000 mg PO Q6HR PRN PRN Reason: Fever>101 Albuterol Sulfate (Albuterol Hfa Inhaler) 2 puff INHALATION RT-Q6H PRN PRN Reason: Shortness Of Breath Or Wheezing Albuterol Sulfate (Albuterol Hfa Inhaler) 4 puff INHALATION Q4H [facility] Last Admin: 11/06/21 08:47 Dose: Not Given Documented by: Ascorbic Acid (Ascorbic Acid 500 Mg Tab) 500 mg PO BID [facility] Last Admin: 11/06/21 09:14 Dose: 500 mg Documented by: Atorvastatin Calcium (Atorvastatin 20 Mg Tab) 20 mg PO HS [facility] Last Admin: 11/05/21 22:12 Dose: Not Given Documented by: Budesonide/Formoterol Fumarate (Symbicort 160-4.5 Mcg Inhaler) 2 puff INHALATION RT-BID@ [facility] Last Admin: 11/06/21 08:46 Dose: Not Given Documented by: Cholecalciferol (Cholecalciferol 125 Mcg (5000 Iu) Tablet) 125 mcg PO DAILY [facility] Last Admin: 11/06/21 09:14 Dose: 125 mcg Documented by: Clozapine (Clozapine 100 Mg Tab) 200 mg PO [facility] Stop: 11/07/21 23:59 Last Admin: 11/05/21 22:10 Dose: Not Given Documented by: Dexamethasone Sodium Phosphate (Dexamethasone Sod Phosphate 10 Mg/Ml 1 Ml Vial) 6 mg IVP DAILY [facility] Last Admin: 11/06/21 09:14 Dose: 6 mg Documented by: Divalproex Sodium (Divalproex Er 500 Mg Tab.Er.24h) 1,500 mg PO [facility] Last Admin: 11/05/21 22:12 Dose: Not Given Documented by: Enoxaparin Sodium (Enoxaparin 40 Mg/0.4 Ml Syringe) 40 mg SQ DAILY [facility] Last Admin: 11/06/21 09:20 Dose: Not Given Documented by: Ergocalciferol (Ergocalciferol 1,250 Mcg (50,000 Iu) Capsule) 1,250 mcg PO FR@0800 [facility] Sodium Chloride (Saline 0.9%) 1,000 mls @ 100 mls/hr IV .Q10H [facility] Last Admin: 11/05/21 14:24 Dose: 100 mls/hr Documented by: Insulin Aspart (Insulin Aspart (Novolog) 100 Unit/Ml Vial) 0 unit SQ AC-TID [facility]; Protocol Last Admin: 11/06/21 12:41 Dose: 5 unit Documented by: Lactic Acid (Ammonium Lactate 12% Cream 140 Gm Tube) 1 applic TOPICAL BID@0800,2100 [facility]; Protocol Last Admin: 11/06/21 09:22 Dose: Not Given Documented by: Linagliptin (Linagliptin 5 Mg Tablet) 5 mg PO DAILY@0800 [facility] Last Admin: 11/06/21 09:14 Dose: 5 mg Documented by: Metformin HCl (Metformin 500 Mg Tab) 1,000 mg PO BID-W/MEALS [facility] Naloxone HCl (Naloxone 0.4 Mg/Ml 1 Ml Vial) 0.2 mg IV Q2M PRN PRN Reason: Opioid Reversal Zinc Sulfate (Zinc Sulfate 220 Mg Cap) 220 mg PO DAILY [facility] Last Admin: 11/06/21 09:14 Dose: 220 mg Documented by: Past medical history to include: COPD, diabetes, hypertension, morbid obesity, home oxygen 2 L, schizophrenia, morbid obesity Social history: Assisted living.. Smokes at least a pack and a half a day since the age of 15. That is about 45 years. No alcohol. Family history: Patient cannot tell Physical examination: VITAL SIGNS: 98.7, 86, 20, 100/60, 90% on 13 L GENERAL: Propped up in , more awake, short of breath, eating. LUNGS:[ Respiratory rate increased, PSYCH: Patient is able to answer simple questions. Delirium better NEUROLOGICAL: Cranial nerves grossly intact; no facial asymmetry, moving limbs Rest of the exam per pulmonary and nursing INVESTIGATIONS, reviewed in the clinical context: November 06: Accu-Cheks noted. ABG from last night showed a pCO2 of 72 White count 6.4 hemoglobin 11.5 platelets 185 sodium 135 potassium 4.1 bicarb 35 creatinine 0.62 Lactic acid 2.2 CRP 3.6 procalcitonin 0.03 Coronavirus [PCR]: Detected Influenza type A/type B: Not detected EKG tracing personally reviewed by me-not a good quality EKG. Sinus rhythm. Nonspecific ST segment changes Chest x-ray film personally reviewed by me-bilateral lower zone infiltrates Assessment and plan: -Acute severe COVID 19 pneumonitis bilateral. In a non-vaccinate patient.: Slow to respond Vitamin C, vitamin D, zinc, dexamethasone. Subcu Lovenox -Acute severe hypoxic respiratory failure from COVID 19 pneumonitis: Slow to respond Currently on high flow 13 L oxygen -Chronic nicotine dependence, cigarette smoker Nicotine patch -Acute COPD exacerbation in a current smoker: Slow to respond Albuterol 4 puffs every 4 with spacer. Dexamethasone. -Acute delirium/metabolic encephalopathy from hypoxia: Some improvement Follow clinically -Schizophrenia: Depakote ER, Clozaril -Hyperlipidemia Lipitor 20 mg daily at bedtime -Diabetes mellitus type 2 on oral hypoglycemic: Uncontrolled with hyperglycemia, from steroids Resume metformin.. Follow Accu-Cheks and sliding scale insulin. -Obesity BMI 39.2 [address] loss measures down the road -Chronic hypoxic respiratory failure on 2 L nasal cannula from underlying COPD Dexamethasone. Vitamin C vitamin D. Zinc. Subcu Lovenox. Resume metformin. Follow Accu-Cheks and sliding insulin. 13 L nasal cannula. Oral intake which improved.
[2021-11-06 17:26] LABS: Glucose,Whole Blood 245 mg/dL (75-99)
[2021-11-06 17:29] LABS: Glucose,Whole Blood 230 mg/dL (75-99)
[2021-11-06] MEDS: metFORMIN 500 MG TAB PO SCH (20:55)
[2021-11-06] MEDS: SODIUM CHLORIDE 0.9% 1,000 ML IV SCH ×2 (20:55→20:56)
[2021-11-06] MEDS: cloZAPine 100 MG TAB PO SCH (21:36)
[2021-11-06] MEDS: DIVALPROEX ER 500 MG TAB.ER.24H PO SCH (21:36)
[2021-11-06] MEDS: ATORVASTATIN 20 MG TAB PO SCH (21:36)
[2021-11-06 21:44] LABS: Glucose,Whole Blood 164 mg/dL (75-99)
[2021-11-07] MEDS: ALBUTEROL HFA INHALER INHALATION SCH ×6 (03:28→23:38)
[2021-11-07] MEDS: SODIUM CHLORIDE 0.9% 1,000 ML IV SCH ×3 (05:42→17:20)
[2021-11-07 05:48] LABS: Glucose,Whole Blood 170 mg/dL (75-99)
[2021-11-07] MEDS: INSULIN ASPART (NovoLOG) 100 UNIT/ML VIAL SQ SCH ×3 (06:55→17:17)
[2021-11-07] MEDS: metFORMIN 500 MG TAB PO SCH ×2 (06:55→17:17)
[2021-11-07 07:23] LABS: Anisocytosis Slight; Basophils % (A) 0 %; Eosinophils % (A) 0 %; HCT 33.7 % (34.0-46.0); HGB 11.1 gm/dL (11.4-16.0); Hypochromasia Slight; Lymphocytes # (A) 1.4 k/uL (1.0-4.8); Lymphocytes % (A) 20 %; MCH 31.5 pg (25.0-35.0); MCHC 32.8 g/dL (31.0-37.0); MCV 95.9 fL (80.0-100.0); Mean Platelet Volume 8.2; Monocytes # (A) 0.6 k/uL (0-1.0); Monocytes % (A) 9 %; Neutrophils # (A) 5.1 k/uL (1.3-7.7); Neutrophils % (A) 70 %; Platelet Count 212 k/uL (150-450); RBC 3.52 m/uL (3.80-5.40); WBC 7.3 k/uL (3.8-10.6)
[2021-11-07] MEDS: CHOLECALCIFEROL 125 MCG (5000 IU) TABLET PO SCH (08:03)
[2021-11-07] MEDS: ENOXAPARIN 40 MG/0.4 ML SYRINGE SQ SCH (08:03)
[2021-11-07] MEDS: ASCORBIC ACID 500 MG TAB PO SCH ×2 (08:03→20:35)
[2021-11-07] MEDS: LINAGLIPTIN 5 MG TABLET PO SCH (08:03)
[2021-11-07] MEDS: ZINC SULFATE 220 MG CAP PO SCH (08:03)
[2021-11-07] MEDS: DEXAMETHASONE SOD PHOSPHATE 10 MG/ML 1 ML VIAL IVP SCH (08:03)
[2021-11-07] MEDS: AMMONIUM LACTATE 12% CREAM 140 GM TUBE TOPICAL SCH ×2 (08:11→20:34)
[2021-11-07] MEDS: SYMBICORT 160-4.5 MCG INHALER INHALATION SCH ×2 (08:52→20:29)
[2021-11-07 11:32] LABS: Glucose,Whole Blood 223 mg/dL (75-99)
--- NOTE | 2021-11-07 16:31 | P.PN ---
Progress Note - Text Progress Note Date: 11/07/21 Chief Complaint: Short of breath History of presenting complaint This is a 61-year-old patient, follows with Dr. West from visiting physicians. Chronic stable medical conditions include diabetes, hypertension, schizophrenia, morbid obesity, smoker. She was sent in from the assisted living. Patient's found to be confused different from baseline. She was found to have a pulse ox appears to be in the 50s. Patient be short of breath and tired. I saw the patient in the ER. Patient somewhat delirious. Initially he was supplied 6 L of nasal cannula. He did scrap picker to 100%. Unable to obtain any detailed history from the patient. Patient is a cough. She did have some fever. Nurse informed me that patient did not take the COVID-19 vaccine. And patient did positive for COVID-19 in the ER. Patient on 15 L high flow oxygen. Admitted with acute COVID-19 bilateral pneumonitis, acute hypoxic respiratory failure, acute delirium/encephalopathy from hypoxia, acute COPD exacerbation. Place and IV fluids, high flow nasal cannula. Dexamethasone. Symbicort, Chapo tolin. Subcu Lovenox. November 06: More awake today. Hungry. Eating. On 13 L of high flow nasal cannula. Answering questions bit more appropriately. Short of breath. Tired. November 07: Patient's had a full lunch. Still very hungry. Watching television. Short of breath. On 15 L nasal cannula. Answering questions. Awake.. Review of systems: Was done for constitutional, cardiovascular, GI, pulmonary. relevant finding as above Active Medications Acetaminophen (Acetaminophen Tab 500 Mg Tab) 1,000 mg PO Q6HR PRN PRN Reason: Fever>101 Albuterol Sulfate (Albuterol Hfa Inhaler) 2 puff INHALATION RT-Q6H PRN PRN Reason: Shortness Of Breath Or Wheezing Albuterol Sulfate (Albuterol Hfa Inhaler) 4 puff INHALATION Q4H [facility] Last Admin: 11/07/21 11:45 Dose: 4 puff Documented by: Ascorbic Acid (Ascorbic Acid 500 Mg Tab) 500 mg PO BID [facility] Last Admin: 11/07/21 08:03 Dose: 500 mg Documented by: Atorvastatin Calcium (Atorvastatin 20 Mg Tab) 20 mg PO HS [facility] Last Admin: 11/06/21 21:36 Dose: 20 mg Documented by: Budesonide/Formoterol Fumarate (Symbicort 160-4.5 Mcg Inhaler) 2 puff INHALATION RT-BID@ [facility] Last Admin: 11/07/21 08:52 Dose: 2 puff Documented by: Cholecalciferol (Cholecalciferol 125 Mcg (5000 Iu) Tablet) 125 mcg PO DAILY [facility] Last Admin: 11/07/21 08:03 Dose: 125 mcg Documented by: Clozapine (Clozapine 100 Mg Tab) 200 mg PO [facility] Stop: 11/14/21 23:00 Last Admin: 11/06/21 21:36 Dose: 200 mg Documented by: Dexamethasone Sodium Phosphate (Dexamethasone Sod Phosphate 10 Mg/Ml 1 Ml Vial) 6 mg IVP DAILY [facility] Last Admin: 11/07/21 08:03 Dose: 6 mg Documented by: Divalproex Sodium (Divalproex Er 500 Mg Tab.Er.24h) 1,500 mg PO [facility] Last Admin: 11/06/21 21:36 Dose: 1,500 mg Documented by: Enoxaparin Sodium (Enoxaparin 40 Mg/0.4 Ml Syringe) 40 mg SQ DAILY [facility] Last Admin: 11/07/21 08:03 Dose: 40 mg Documented by: Ergocalciferol (Ergocalciferol 1,250 Mcg (50,000 Iu) Capsule) 1,250 mcg PO FR@0800 [facility] Sodium Chloride (Saline 0.9%) 1,000 mls @ 100 mls/hr IV .Q10H [facility] Last Admin: 11/07/21 05:42 Dose: Not Given Documented by: Insulin Aspart (Insulin Aspart (Novolog) 100 Unit/Ml Vial) 0 unit SQ AC-TID [facility]; Protocol Last Admin: 11/07/21 12:28 Dose: 7 unit Documented by: Lactic Acid (Ammonium Lactate 12% Cream 140 Gm Tube) 1 applic TOPICAL BID@0800,2100 [facility]; Protocol Last Admin: 11/07/21 08:11 Dose: 1 applic Documented by: Linagliptin (Linagliptin 5 Mg Tablet) 5 mg PO DAILY@0800 [facility] Last Admin: 11/07/21 08:03 Dose: 5 mg Documented by: Metformin HCl (Metformin 500 Mg Tab) 1,000 mg PO BID-W/MEALS [facility] Last Admin: 11/07/21 06:55 Dose: 1,000 mg Documented by: Naloxone HCl (Naloxone 0.4 Mg/Ml 1 Ml Vial) 0.2 mg IV Q2M PRN PRN Reason: Opioid Reversal Zinc Sulfate (Zinc Sulfate 220 Mg Cap) 220 mg PO DAILY [facility] Last Admin: 11/07/21 08:03 Dose: 220 mg Documented by: Past medical history to include: COPD, diabetes, hypertension, morbid obesity, home oxygen 2 L, schizophrenia, morbid obesity Social history: Assisted living.. Smokes at least a pack and a half a day since the age of 15. That is about 45 years. No alcohol. Family history: Patient cannot tell Physical examination: VITAL SIGNS: Afebrile, 77, 26, 141/62, 91% on 15 L GENERAL: Propped up in bed , awake, short of breath, eating. LUNGS:[ Respiratory rate increased, PSYCH AO 3. Slightly anxious. NEUROLOGICAL: Cranial nerves grossly intact; no facial asymmetry, moving limbs Rest of the exam per pulmonary and nursing INVESTIGATIONS, reviewed in the clinical context: November 07: White count 7.3 hemoglobin 11.1 platelets 212. Accu-Cheks 223 November 06: Accu-Cheks noted. ABG from last night showed a pCO2 of 72 White count 6.4 hemoglobin 11.5 platelets 185 sodium 135 potassium 4.1 bicarb 35 creatinine 0.62 Lactic acid 2.2 CRP 3.6 procalcitonin 0.03 Coronavirus [PCR]: Detected Influenza type A/type B: Not detected EKG tracing personally reviewed by me-not a good quality EKG. Sinus rhythm. Nonspecific ST segment changes Chest x-ray film personally reviewed by me-bilateral lower zone infiltrates Assessment and plan: -Acute severe COVID 19 pneumonitis bilateral. In a non-vaccinate patient.: Slow to respond Vitamin C, vitamin D, zinc, dexamethasone. Subcu Lovenox -Acute severe hypoxic respiratory failure from COVID 19 pneumonitis: Slow to respond Currently on high flow15 L oxygen -Chronic nicotine dependence, cigarette smoker Nicotine patch -Acute COPD exacerbation in a current smoker: Slow to respond Albuterol 4 puffs every 4 with spacer. Dexamethasone. -Acute delirium/metabolic encephalopathy from hypoxia: Better Follow clinically -Schizophrenia: Depakote ER, Clozaril -Hyperlipidemia Lipitor 20 mg daily at bedtime -Diabetes mellitus type 2 on oral hypoglycemic: Uncontrolled with hyperglycemia, from steroids Resume metformin.. Follow Accu-Cheks and sliding scale insulin. Add Levemir 10 units subcu daily at bedtime -Obesity BMI 39.[address] the [address] -Chronic hypoxic respiratory failure on 2 L nasal cannula from underlying COPD Dexamethasone. Subcu Lovenox. Add Levemir. 15 L nasal cannula. Discussed with patient.
[2021-11-07 16:40] LABS: Glucose,Whole Blood 262 mg/dL (75-99)
--- NOTE | 2021-11-07 18:00 | P.PN ---
Subjective Progress Note Date: 11/07/21 11/07/2021, the patient is awake and alert and she is following commands and answering questions appropriately. She feels good. She denies having any worsening shortness of breath. She remains on Decadron 6 mg IV every 24 hours, COVID 19 related pneumonia. The patient otherwise is still on oxygen and the patient is currently on 15 L per minute nasal cannula. Her pulse ox is an older of 96%. The patient's blood sugars slightly elevated. The white cell count is at 7.3 with a hemoglobin of 11 and a platelet count of 212. No nausea. No vomiting. No emesis. No altered mentation. She is known to have chronic psychiatric problems including schizophrenia. She is morbidly obese. Her body mass index of 39.2. Home medications of been all resumed including her psychiatric medication. The patient remains on Levemir insulin 10 units in addition to sliding scale insulin coverage. Objective - Vital Signs Vital signs: Vital Signs Temp 98.7 F 11/07/21 15:17 Pulse 74 11/07/21 15:17 Resp 24 11/07/21 15:17 BP 115/62 11/07/21 15:17 Pulse Ox 96 11/07/21 15:17 Intake & Output 11/06/21 11/07/21 11/07/21 18:59 06:59 18:59 Intake Total 1700 1468 Output Total 525 Balance 1175 1468 Weight 113.398 kg Intake: Intake, IV Titration 1200 700 Amount Sodium Chloride 0.9% 1, 1200 700 000 ml @ 100 mls/hr IV . Q10H [facility] Rx#:[id number] Oral 500 768 Output: Urine 525 Uretheral (Sena) 525 Other: Voiding Method Indwelling Catheter Indwelling Catheter - Exam General: Disheveled female, no distress, appears older than stated age, morbidly obese, carries ability mass index of 39.2, breathing is mildly labored and the patient is currently on 15 L of oxygen by nasal cannula Derm: Bilateral lower extremity chronic venous stasis changes with 2+ lower extremity pitting edema, warm, dry Head: atraumatic, normocephalic, symmetric Eyes: EOMI, no lid lag, anicteric sclera, pupils equal round reactive to light ENT: Nose and ears atraumatic, no thrush, no pharyngeal erythema Neck: No thyromegaly, no cervical lymphadenopathy, trachea midline, supple Mouth: no lip lesion, mucus membranes dry Cardiovascular: S1S2 reg, no murmur, positive posterior tibial pulse bilateral, bilateral lower extremity 2+ pitting edema, capillary refill less than 2 seconds Lungs: Diminished breath along with crackles at lung bases bilaterally, no rhonchi, no rales , no accessory muscle use Abdominal: soft, nontender to palpation, no guarding, no appreciable organomegaly, normal bowel sounds Ext: no gross muscle atrophy, muscle strength 5 out of 5 in all 4 extremities grossly, no contractures, Neuro: CN II-XI grossly intact, light touch intact all 4 extremities - Labs CBC & Chem 7: 11/07/21 06:59 11/05/21 08:58 Labs: Abnormal Lab Results - Last 24 Hours (Table) 11/06/21 11/07/21 11/07/21 Range/Units 21:42 05:46 06:59 RBC 3.52 L (3.80-5.40) m/uL Hgb 11.1 L (11.4-16.0) gm/dL Hct 33.7 L (34.0-46.0) % RDW 16.0 H (11.5-15.5) % POC Glucose (mg/dL) 164 H 170 H (75-99) mg/dL 11/07/21 11/07/21 Range/Units 11:30 16:38 RBC (3.80-5.40) m/uL Hgb (11.4-16.0) gm/dL Hct (34.0-46.0) % RDW (11.5-15.5) % POC Glucose (mg/dL) 223 H 262 H (75-99) mg/dL Assessment and Plan Plan: 1 acute hypoxic respiratory failure. The patient presents emergency with altered mentation and the patient was quite hypoxic and the patient was found to have a COVID 19 related pneumonia with bilateral pulmonary infiltrates left more than right. The patient is currently on 15 L by nasal cannula, started on Decadron. Overall condition is unchanged. The patient seems in much more alert and awake and there is no significant altered mentation on today's evaluation. No signs of any CO2 narcosis. The patient is being treated with Decadron. The patient is also undergoing anticoagulation using Lovenox 40 mg subcu daily. 2 acute COVID 19 related pneumonia 3 mild lactic acidosis 4 mild elevation of the inflammatory markers secondary to above 5 history of schizophrenia with significant impairment in her functionality due to mental health 6 altered mentation secondary to schizophrenia and possibly further complimented by development of hypoxemia, but admission. Neurologic exam is nonfocal 7 diabetes mellitus 8 hypertension 9 hyperlipidemia 10 morbid obesity with a BMI of 39.2 11 chronic lower extremity edema bilaterally 12 COPD Plan Titrate oxygen flow to maintain a saturation above 90% currently on 15 L try to titrate the patient on 12 L if possible as long as she is able to maintain a saturation above 90%. The patient remains on oxygen at 15 L per minute nasal cannula continue Decadron 6 mg IV every 24 hours Exact onset of symptoms with COVID 19 is not known. Not a candidate for Remdesivir Check pro calcitonin level is low at 0.03 Check d-dimer is low at 0.5 Put the patient on Lovenox 40 prophylaxis 40 mg subcu Abdomen multiple vitamins including vitamin C and vitamin D and zinc Resume all medications Monitor blood sugar and give the patient is slight scale insulin coverage in addition to her routine diabetic medications, the patient is currently on Levemir insulin for blood sugar control in addition to sliding scale coverage. Cut down the IV fluids to KVO Resume Symbicort and albuterol HFA [id number] as needed We'll continue to follow
[2021-11-07 20:21] LABS: Glucose,Whole Blood 238 mg/dL (75-99)
[2021-11-07] MEDS: cloZAPine 100 MG TAB PO SCH (20:35)
[2021-11-07] MEDS: DIVALPROEX ER 500 MG TAB.ER.24H PO SCH (20:35)
[2021-11-07] MEDS: ATORVASTATIN 20 MG TAB PO SCH (20:35)
[2021-11-07] MEDS ORDERED: INSULIN DETEMIR (LEVEMIR) 100 UNIT/ML SYR SQ SCH (21:00)
[2021-11-07 23:48] LABS: Glucose,Whole Blood 211 mg/dL (75-99)
[2021-11-08] MEDS: ALBUTEROL HFA INHALER INHALATION SCH ×5 (03:16→21:48)
[2021-11-08 06:30] LABS: Glucose,Whole Blood 194 mg/dL (75-99)
[2021-11-08] MEDS: metFORMIN 500 MG TAB PO SCH ×2 (06:40→17:31)
[2021-11-08] MEDS: INSULIN ASPART (NovoLOG) 100 UNIT/ML VIAL SQ SCH ×3 (06:40→17:31)
[2021-11-08] MEDS: SYMBICORT 160-4.5 MCG INHALER INHALATION SCH ×2 (08:02→21:48)
[2021-11-08] MEDS: DEXAMETHASONE SOD PHOSPHATE 10 MG/ML 1 ML VIAL IVP SCH (09:31)
[2021-11-08] MEDS: ASCORBIC ACID 500 MG TAB PO SCH ×2 (09:31→20:43)
[2021-11-08] MEDS: ENOXAPARIN 40 MG/0.4 ML SYRINGE SQ SCH (09:32)
[2021-11-08] MEDS: CHOLECALCIFEROL 125 MCG (5000 IU) TABLET PO SCH (09:32)
[2021-11-08] MEDS: ZINC SULFATE 220 MG CAP PO SCH (09:32)
[2021-11-08] MEDS: LINAGLIPTIN 5 MG TABLET PO SCH (09:32)
[2021-11-08] MEDS: AMMONIUM LACTATE 12% CREAM 140 GM TUBE TOPICAL SCH ×2 (09:35→20:44)
[2021-11-08 12:07] LABS: Glucose,Whole Blood 159 mg/dL (75-99)
[2021-11-08 16:59] LABS: Glucose,Whole Blood 269 mg/dL (75-99)
[2021-11-08] MEDS: SODIUM CHLORIDE 0.9% 1,000 ML IV SCH (17:32)
--- NOTE | 2021-11-08 17:32 | P.PN ---
Subjective Progress Note Date: 11/08/21 11/08/2021, the patient remains stable and the patient denies having any specific complaints. The patient remains on oxygen. Oxygen flow has been tapered down to 10 L by nasal cannula and her current saturations around 97% the patient is afebrile. The patient is hemodynamically stable. The patient is being treated for COVID 19 pneumonia. The patient continues to have some mild hyperglycemia. The patient remains on Decadron 6 mg IV every 24 hours. The patient is on a combination of Levemir 10 units along with her oral hypoglycemic medications and sized skin coverage. The patient remains on Lovenox 40 mg subcu for DVT prophylaxis. Awake and alert. Following commands and answering que stions. No chest pain. No other significant events overnight for now. Objective - Vital Signs Vital signs: Vital Signs Temp 96.9 F L 11/08/21 16:00 Pulse 73 11/08/21 16:00 Resp 20 11/08/21 16:00 BP 141/71 11/08/21 16:00 Pulse Ox 97 11/08/21 16:00 Intake & Output 11/07/21 11/08/21 11/08/21 18:59 06:59 18:59 Intake Total 1586 200 240 Output Total 975 500 300 Balance 611 -300 -60 Intake: Intake, IV Titration 700 Amount Sodium Chloride 0.9% 1, 700 000 ml @ 100 mls/hr IV . Q10H [facility] Rx#:[id number] Oral 886 200 240 Output: Urine 975 500 Stool 300 Other: Voiding Method Indwelling Catheter Indwelling Catheter Indwelling Catheter # Bowel Movements 1 - Exam General: Disheveled female, no distress, appears older than stated age, morbidly obese, carries ability mass index of 39.2, breathing is mildly labored and the patient is currently on 10 L of oxygen by nasal cannula Derm: Bilateral lower extremity chronic venous stasis changes with 2+ lower extremity pitting edema, warm, dry Head: atraumatic, normocephalic, symmetric Eyes: EOMI, no lid lag, anicteric sclera, pupils equal round reactive to light ENT: Nose and ears atraumatic, no thrush, no pharyngeal erythema Neck: No thyromegaly, no cervical lymphadenopathy, trachea midline, supple Mouth: no lip lesion, mucus membranes dry Cardiovascular: S1S2 reg, no murmur, positive posterior tibial pulse bilateral, bilateral lower extremity 2+ pitting edema, capillary refill less than 2 seconds Lungs: Diminished breath along with crackles at lung bases bilaterally, no rhonchi, no rales , no accessory muscle use Abdominal: soft, nontender to palpation, no guarding, no appreciable organomegaly, normal bowel sounds Ext: no gross muscle atrophy, muscle strength 5 out of 5 in all 4 extremities grossly, no contractures, Neuro: CN II-XI grossly intact, light touch intact all 4 extremities - Labs CBC & Chem 7: 11/07/21 06:59 11/05/21 08:58 Labs: Abnormal Lab Results - Last 24 Hours (Table) 11/07/21 11/07/21 11/08/21 Range/Units 20:18 23:46 06:27 D-Dimer (<0.60) mg/L FEU POC Glucose (mg/dL) 238 H 211 H 194 H (75-99) mg/dL C-Reactive Protein (<1.0) mg/dL 11/08/21 11/08/21 11/08/21 Range/Units 07:05 07:05 12:05 D-Dimer 0.64 H (<0.60) mg/L FEU POC Glucose (mg/dL) 159 H (75-99) mg/dL C-Reactive Protein 3.0 H (<1.0) mg/dL 11/08/21 Range/Units 16:58 D-Dimer (<0.60) mg/L FEU POC Glucose (mg/dL) 269 H (75-99) mg/dL C-Reactive Protein (<1.0) mg/dL Assessment and Plan Plan: 1 acute hypoxic respiratory failure. The patient presents emergency with altered mentation and the patient was quite hypoxic and the patient was found to have a COVID 19 related pneumonia with bilateral pulmonary infiltrates left more than right. The patient is currently on 10 liters of oxygen by nasal cannula. Condition is stable and off as is being gradually weaned off. 2 acute COVID 19 related pneumonia 3 mild lactic acidosis 4 mild elevation of the inflammatory markers secondary to above 5 history of schizophrenia with significant impairment in her functionality due to mental health 6 altered mentation secondary to schizophrenia and possibly further complimented by development of hypoxemia, but admission. Neurologic exam is nonfocal 7 diabetes mellitus 8 hypertension 9 hyperlipidemia 10 morbid obesity with a BMI of 39.2 11 chronic lower extremity edema bilaterally 12 COPD Plan Wean FiO2, currently on 10 L continue Decadron 6 mg IV every 24 hours Exact onset of symptoms with COVID 19 is not known, Not a candidate for Remdesivir Check pro calcitonin level is low at 0.03 Check d-dimer is low at 0.5 Put the patient on Lovenox 40 prophylaxis 40 mg subcu Abdomen multiple vitamins including vitamin C and vitamin D and zinc Resume all medications Monitor blood sugar and give the patient is slight scale insulin coverage in addition to her routine diabetic medications, the patient is currently on Levemir insulin for blood sugar control in addition to sliding scale coverage. I will leave the blood sugar management up to medicine. IV fluids and currently at O Home medications have been resumed including her mental health medications Symbicort and albuterol HFA [id number] as needed We'll continue to follow
--- NOTE | 2021-11-08 19:38 | P.PN ---
Progress Note - Text Progress Note Date: 11/08/21 Chief Complaint: Short of breath History of presenting complaint This is a 61-year-old patient, follows with Dr. West from visiting physicians. Chronic stable medical conditions include diabetes, hypertension, schizophrenia, morbid obesity, smoker. She was sent in from the assisted living. Patient's found to be confused different from baseline. She was found to have a pulse ox appears to be in the 50s. Patient be short of breath and tired. I saw the patient in the ER. Patient somewhat delirious. Initially he was supplied 6 L of nasal cannula. He did apple picker to 100%. Unable to obtain any detailed history from the patient. Patient is a cough. She did have some fever. Nurse informed me that patient did not take the COVID-19 vaccine. And patient did positive for COVID-19 in the ER. Patient on 15 L high flow oxygen. Admitted with acute COVID-19 bilateral pneumonitis, acute hypoxic respiratory failure, acute delirium/encephalopathy from hypoxia, acute COPD exacerbation. Place and IV fluids, high flow nasal cannula. Dexamethasone. Symbicort, Chapo tolin. Subcu Lovenox. November 06: More awake today. Hungry. Eating. On 13 L of high flow nasal cannula. Answering questions bit more appropriately. Short of breath. Tired. November 07: Patient's had a full lunch. Still very hungry. Watching television. Short of breath. On 15 L nasal cannula. Answering questions. Awake.. November 08: Eating well. FiO2 down to 10 L. Breathing a bit better. Less short of breath. Review of systems: Was done for constitutional, cardiovascular, GI, pulmonary. relevant finding as above Active Medications Acetaminophen (Acetaminophen Tab 500 Mg Tab) 1,000 mg PO Q6HR PRN PRN Reason: Fever>101 Albuterol Sulfate (Albuterol Hfa Inhaler) 2 puff INHALATION RT-Q6H PRN PRN Reason: Shortness Of Breath Or Wheezing Albuterol Sulfate (Albuterol Hfa Inhaler) 4 puff INHALATION Q4H [facility] Last Admin: 11/08/21 16:17 Dose: 4 puff Documented by: Ascorbic Acid (Ascorbic Acid 500 Mg Tab) 500 mg PO BID [facility] Last Admin: 11/08/21 09:31 Dose: 500 mg Documented by: Atorvastatin Calcium (Atorvastatin 20 Mg Tab) 20 mg PO HS [facility] Last Admin: 11/07/21 20:35 Dose: 20 mg Documented by: Budesonide/Formoterol Fumarate (Symbicort 160-4.5 Mcg Inhaler) 2 puff INHALATION RT-BID@ [facility] Last Admin: 11/08/21 08:02 Dose: 2 puff Documented by: Cholecalciferol (Cholecalciferol 125 Mcg (5000 Iu) Tablet) 125 mcg PO DAILY [facility] Last Admin: 11/08/21 09:32 Dose: 125 mcg Documented by: Clozapine (Clozapine 100 Mg Tab) 200 mg PO [facility] Stop: 11/14/21 23:00 Last Admin: 11/07/21 20:35 Dose: 200 mg Documented by: Dexamethasone Sodium Phosphate (Dexamethasone Sod Phosphate 10 Mg/Ml 1 Ml Vial) 6 mg IVP DAILY [facility] Last Admin: 11/08/21 09:31 Dose: 6 mg Documented by: Divalproex Sodium (Divalproex Er 500 Mg Tab.Er.24h) 1,500 mg PO [facility] Last Admin: 11/07/21 20:35 Dose: 1,500 mg Documented by: Enoxaparin Sodium (Enoxaparin 40 Mg/0.4 Ml Syringe) 40 mg SQ DAILY [facility] Last Admin: 11/08/21 09:32 Dose: 40 mg Documented by: Ergocalciferol (Ergocalciferol 1,250 Mcg (50,000 Iu) Capsule) 1,250 mcg PO FR@0800 [facility] Sodium Chloride (Saline 0.9%) 1,000 mls @ 10 mls/hr IV .Q24H [facility] Last Admin: 11/08/21 17:32 Dose: 10 mls/hr Documented by: Insulin Aspart (Insulin Aspart (Novolog) 100 Unit/Ml Vial) 0 unit SQ AC-TID [facility]; Protocol Last Admin: 11/08/21 17:31 Dose: 8 unit Documented by: Insulin Detemir (Insulin Detemir (Levemir) 100 Unit/Ml Syr) 10 unit SQ [facility] Last Admin: 11/07/21 20:35 Dose: 10 unit Documented by: Lactic Acid (Ammonium Lactate 12% Cream 140 Gm Tube) 1 applic TOPICAL BID@0800,2100 [facility]; Protocol Last Admin: 11/08/21 09:35 Dose: 1 applic Documented by: Linagliptin (Linagliptin 5 Mg Tablet) 5 mg PO DAILY@0800 [facility] Last Admin: 11/08/21 09:32 Dose: 5 mg Documented by: Metformin HCl (Metformin 500 Mg Tab) 1,000 mg PO BID-W/MEALS [facility] Last Admin: 11/08/21 17:31 Dose: 1,000 mg Documented by: Naloxone HCl (Naloxone 0.4 Mg/Ml 1 Ml Vial) 0.2 mg IV Q2M PRN PRN Reason: Opioid Reversal Zinc Sulfate (Zinc Sulfate 220 Mg Cap) 220 mg PO DAILY [facility] Last Admin: 11/08/21 09:32 Dose: 220 mg Documented by: Past medical history to include: COPD, diabetes, hypertension, morbid obesity, home oxygen 2 L, schizophrenia, morbid obesity Social history: Assisted living.. Smokes at least a pack and a half a day since the age of 15. That is about 45 years. No alcohol. Family history: Patient cannot tell Physical examination: VITAL SIGNS: 96.9, 73, 20, 141/71, 97% on 10 L GENERAL: Propped up in bed , awake, breathing better LUNGS:[ Respiratory rate increased, PSYCH AO 3. Slightly anxious. NEUROLOGICAL: Cranial nerves grossly intact; no facial asymmetry, moving limbs Rest of the exam per pulmonary and nursing INVESTIGATIONS, reviewed in the clinical context: November 08: D-dimer 0.64 CRP 3 November 07: White count 7.3 hemoglobin 11.1 platelets 212. Accu-Cheks November 06: Accu-Cheks noted. ABG from last night showed a pCO2 of 72 White count 6.4 hemoglobin 11.5 platelets 185 sodium 135 potassium 4.1 bicarb 35 creatinine 0.62 Lactic acid 2.2 CRP 3.6 procalcitonin 0.03 Coronavirus [PCR]: Detected Influenza type A/type B: Not detected EKG tracing personally reviewed by me-not a good quality EKG. Sinus rhythm. Nonspecific ST segment changes Chest x-ray film personally reviewed by me-bilateral lower zone infiltrates Assessment and plan: -Acute severe COVID 19 pneumonitis bilateral. In a non-vaccinate patient.: Slow to respond Vitamin C, vitamin D, zinc, dexamethasone. Subcu Lovenox -Acute severe hypoxic respiratory failure from COVID 19 pneumonitis: Slow to respond Currently on high flow10 L oxygen -Chronic nicotine dependence, cigarette smoker Nicotine patch -Acute COPD exacerbation in a current smoker: Slow to respond Albuterol 4 puffs every 4 with spacer. Dexamethasone. -Acute delirium/metabolic encephalopathy from hypoxia: Better Follow clinically -Schizophrenia: Depakote ER, Clozaril -Hyperlipidemia Lipitor 20 mg daily at bedtime -Diabetes mellitus type 2 on oral hypoglycemic: Uncontrolled with hyperglycemia, from steroids Resume metformin.. Follow Accu-Cheks and sliding scale insulin. Increase Levemir 14 units subcu daily at bedtime -Obesity BMI 39.[address] measures [address] the road -Chronic hypoxic respiratory failure on 2 L nasal cannula from underlying COPD Dexamethasone. Subcu Lovenox. Increase Levemir to 14 units 10 L nasal cannula. Discussed with patient.
[2021-11-08 20:34] LABS: Glucose,Whole Blood 237 mg/dL (75-99)
[2021-11-08] MEDS: ATORVASTATIN 20 MG TAB PO SCH (20:43)
[2021-11-08] MEDS: cloZAPine 100 MG TAB PO SCH (20:43)
[2021-11-08] MEDS: DIVALPROEX ER 500 MG TAB.ER.24H PO SCH (20:43)
[2021-11-08] MEDS ORDERED: INSULIN DETEMIR (LEVEMIR) 100 UNIT/ML SYR SQ SCH (21:00)
[2021-11-09] MEDS: ALBUTEROL HFA INHALER INHALATION SCH ×6 (04:03→21:28)
[2021-11-09 06:10] LABS: Glucose,Whole Blood 146 mg/dL (75-99)
[2021-11-09] MEDS: metFORMIN 500 MG TAB PO SCH ×2 (06:49→17:35)
[2021-11-09] MEDS: INSULIN ASPART (NovoLOG) 100 UNIT/ML VIAL SQ SCH ×3 (06:49→17:35)
[2021-11-09] MEDS: SYMBICORT 160-4.5 MCG INHALER INHALATION SCH ×2 (09:10→21:29)
[2021-11-09] MEDS: ENOXAPARIN 40 MG/0.4 ML SYRINGE SQ SCH (09:32)
[2021-11-09] MEDS: ZINC SULFATE 220 MG CAP PO SCH (09:32)
[2021-11-09] MEDS: LINAGLIPTIN 5 MG TABLET PO SCH (09:33)
[2021-11-09] MEDS: CHOLECALCIFEROL 125 MCG (5000 IU) TABLET PO SCH (09:33)
[2021-11-09] MEDS: ERGOCALCIFEROL 1,250 MCG (50,000 IU) CAPSULE PO SCH (09:33)
[2021-11-09] MEDS: ASCORBIC ACID 500 MG TAB PO SCH ×2 (09:33→21:19)
[2021-11-09] MEDS: AMMONIUM LACTATE 12% CREAM 140 GM TUBE TOPICAL SCH ×2 (09:33→21:20)
[2021-11-09] MEDS: dexAMETHasone 2 MG TAB PO SCH (09:33)
[2021-11-09 11:45] LABS: Glucose,Whole Blood 150 mg/dL (75-99)
--- NOTE | 2021-11-09 14:50 | P.PN ---
Subjective Progress Note Date: 11/09/21 11/09/2021, the patient is stable on 10 L of oxygen by nasal cannula. Condition essentially unchanged since yesterday. Unfortunately, she is not doing much of activity. She is staying most of the time in bed. No confusion. No altered mentation. He remains on Decadron 6 progress by mouth on a daily basis. He remains on anticoagulation and the patient is currently on Lovenox 40 mg subcu on a daily basis. Rest of the medications remain unchanged. She is awake and alert and she is tolerating diet. She is to do more activities such as sitting up on a chair and were hoping to achieve this today.no new labs are available from today. D-dimer is low at 0.7. LDH was low at 793. CRP was also low at 2.2. Objective - Vital Signs Vital signs: Vital Signs Temp 98.4 F 11/09/21 13:10 Pulse 73 11/09/21 13:10 Resp 18 11/09/21 13:10 BP 109/58 11/09/21 13:10 Pulse Ox 92 L 11/09/21 13:10 Intake & Output 11/08/21 11/09/21 11/09/21 18:59 06:59 18:59 Intake Total 960 180 Output Total 300 1500 Balance 660 -1500 180 Intake: Oral 960 180 Output: Urine 1500 Stool 300 Other: Voiding Method Indwelling Catheter Indwelling Catheter Indwelling Catheter - Exam General: Disheveled female, no distress, appears older than stated age, morbidly obese, carries ability mass index of 39.2, breathing is mildly labored and the patient is currently on 10 L of oxygen by nasal cannula Derm: Bilateral lower extremity chronic venous stasis changes with 2+ lower extremity pitting edema, warm, dry Head: atraumatic, normocephalic, symmetric Eyes: EOMI, no lid lag, anicteric sclera, pupils equal round reactive to light ENT: Nose and ears atraumatic, no thrush, no pharyngeal erythema Neck: No thyromegaly, no cervical lymphadenopathy, trachea midline, supple Mouth: no lip lesion, mucus membranes dry Cardiovascular: S1S2 reg, no murmur, positive posterior tibial pulse bilateral, bilateral lower extremity 2+ pitting edema, capillary refill less than 2 seconds Lungs: Diminished breath along with crackles at lung bases bilaterally, no rhonchi, no rales , no accessory muscle use Abdominal: soft, nontender to palpation, no guarding, no appreciable organomegaly, normal bowel sounds Ext: no gross muscle atrophy, muscle strength 5 out of 5 in all 4 extremities grossly, no contractures, Neuro: CN II-XI grossly intact, light touch intact all 4 extremities - Labs CBC & Chem 7: 11/07/21 06:59 11/05/21 08:58 Labs: Abnormal Lab Results - Last 24 Hours (Table) 11/08/21 11/08/21 11/09/21 Range/Units 16:58 20:32 06:07 D-Dimer (<0.60) mg/L FEU POC Glucose (mg/dL) 269 H 237 H 146 H (75-99) mg/dL C-Reactive Protein (<1.0) mg/dL 11/09/21 11/09/21 11/09/21 Range/Units 09:22 09:22 11:43 D-Dimer 0.72 H (<0.60) mg/L FEU POC Glucose (mg/dL) 150 H (75-99) mg/dL C-Reactive Protein 2.2 H (<1.0) mg/dL Assessment and Plan Plan: 1 acute hypoxic respiratory failure. The patient presents emergency with altered mentation and the patient was quite hypoxic and the patient was found to have a COVID 19 related pneumonia with bilateral pulmonary infiltrates left more than right. The patient is currently on 10 liters of oxygen by nasal cannula. Condition is stable and off as is being gradually weaned off. 2 acute COVID 19 related pneumonia 3 mild lactic acidosis 4 mild elevation of the inflammatory markers secondary to above 5 history of schizophrenia with significant impairment in her functionality due to mental health 6 altered mentation secondary to schizophrenia and possibly further complimented by development of hypoxemia, but admission. Neurologic exam is nonfocal 7 diabetes mellitus 8 hypertension 9 hyperlipidemia 10 morbid obesity with a BMI of 39.2 11 chronic lower extremity edema bilaterally 12 COPD Plan Wean FiO2, currently on 10 L, unable to wean as the patient's pulse ox is currently around 91-92%. Inflammatory markers are low. continue Decadron 6 mgby mouth every 24 hours Exact onset of symptoms with COVID 19 is not known, and as such the patient is not a candidate for Remdesivir Check pro calcitonin level is low at 0.03 Check d-dimer is low at 0.5 Put the patient on Lovenox 40 prophylaxis 40 mg subcu Abdomen multiple vitamins including vitamin C and vitamin D and zinc psychotropic medication of been all resumed Monitor blood sugar and give the patient is slight scale insulin coverage in addition to her routine diabetic medications, the patient is currently on Levemir insulin for blood sugar control in addition to sliding scale coverage. I will leave the blood sugar management up to medicine. IV fluids and currently at [facility] Home medications have been resumed including her mental health medications Symbicort and albuterol HFA [id number] as needed very important for this patient to increase mobility and activity. We'll try to move her up on a chair today. Wean off FiO2 as tolerated. We'll continue to follow.
[2021-11-09 16:41] LABS: Glucose,Whole Blood 222 mg/dL (75-99)
[2021-11-09] MEDS: SODIUM CHLORIDE 0.9% 1,000 ML IV SCH (17:36)
--- NOTE | 2021-11-09 17:55 | P.PN ---
Progress Note - Text Progress Note Date: 11/09/21 Chief Complaint: Short of breath History of presenting complaint This is a 61-year-old patient, follows with Dr. West from visiting physicians. Chronic stable medical conditions include diabetes, hypertension, schizophrenia, morbid obesity, smoker. She was sent in from the assisted living. Patient's found to be confused different from baseline. She was found to have a pulse ox appears to be in the 50s. Patient be short of breath and tired. I saw the patient in the ER. Patient somewhat delirious. Initially he was supplied 6 L of nasal cannula. He did fern picker to 100%. Unable to obtain any detailed history from the patient. Patient is a cough. She did have some fever. Nurse informed me that patient did not take the COVID-19 vaccine. And patient did positive for COVID-19 in the ER. Patient on 15 L high flow oxygen. Admitted with acute COVID-19 bilateral pneumonitis, acute hypoxic respiratory failure, acute delirium/encephalopathy from hypoxia, acute COPD exacerbation. Place and IV fluids, high flow nasal cannula. Dexamethasone. Symbicort, Chapo tolin. Subcu Lovenox. November 06: More awake today. Hungry. Eating. On 13 L of high flow nasal cannula. Answering questions bit more appropriately. Short of breath. Tired. November 07: Patient's had a full lunch. Still very hungry. Watching television. Short of breath. On 15 L nasal cannula. Answering questions. Awake.. November 08: Eating well. FiO2 down to 10 L. Breathing a bit better. Less short of breath. November 09: Remains on 10 L of oxygen. Oral intake good. Some shortness breath. Some cough. Review of systems: Was done for constitutional, cardiovascular, GI, pulmonary. relevant finding as above Active Medications Acetaminophen (Acetaminophen Tab 500 Mg Tab) 1,000 mg PO Q6HR PRN PRN Reason: Fever>101 Albuterol Sulfate (Albuterol Hfa Inhaler) 2 puff INHALATION RT-Q6H PRN PRN Reason: Shortness Of Breath Or Wheezing Albuterol Sulfate (Albuterol Hfa Inhaler) 4 puff INHALATION Q4H [facility] Last Admin: 11/09/21 16:25 Dose: 4 puff Documented by: Ascorbic Acid (Ascorbic Acid 500 Mg Tab) 500 mg PO BID [facility] Last Admin: 11/09/21 09:33 Dose: 500 mg Documented by: Atorvastatin Calcium (Atorvastatin 20 Mg Tab) 20 mg PO [facility] Last Admin: 11/08/21 20:43 Dose: 20 mg Documented by: Budesonide/Formoterol Fumarate (Symbicort 160-4.5 Mcg Inhaler) 2 puff INHALATION RT-BID@, [facility] Last Admin: 11/09/21 09:10 Dose: 2 puff Documented by: Cholecalciferol (Cholecalciferol 125 Mcg (5000 Iu) Tablet) 125 mcg PO DAILY [facility] Last Admin: 11/09/21 09:33 Dose: 125 mcg Documented by: Clozapine (Clozapine 100 Mg Tab) 200 mg PO [facility] Stop: 11/14/21 23:00 Last Admin: 11/08/21 20:43 Dose: 200 mg Documented by: Dexamethasone (Dexamethasone 2 Mg Tab) 6 mg PO DAILY [facility] Last Admin: 11/09/21 09:33 Dose: 6 mg Documented by: Divalproex Sodium (Divalproex Er 500 Mg Tab.Er.24h) 1,500 mg PO [facility] Last Admin: 11/08/21 20:43 Dose: 1,500 mg Documented by: Enoxaparin Sodium (Enoxaparin 40 Mg/0.4 Ml Syringe) 40 mg SQ DAILY [facility] Last Admin: 11/09/21 09:32 Dose: 40 mg Documented by: Ergocalciferol (Ergocalciferol 1,250 Mcg (50,000 Iu) Capsule) 1,250 mcg PO FR@0800 [facility] Last Admin: 11/09/21 09:33 Dose: 1,250 mcg Documented by: Sodium Chloride (Saline 0.9%) 1,000 mls @ 10 mls/hr IV .Q24H [facility] Last Admin: 11/09/21 17:36 Dose: Not Given Documented by: Insulin Aspart (Insulin Aspart (Novolog) 100 Unit/Ml Vial) 0 unit SQ AC-TID [facility]; Protocol Last Admin: 11/09/21 17:35 Dose: Not Given Documented by: Insulin Detemir (Insulin Detemir (Levemir) 100 Unit/Ml Syr) 14 unit SQ [facility] Last Admin: 11/08/21 20:44 Dose: 14 unit Documented by: Lactic Acid (Ammonium Lactate 12% Cream 140 Gm Tube) 1 applic TOPICAL BID@0800,2100 [facility]; Protocol Last Admin: 11/09/21 09:33 Dose: 1 applic Documented by: Linagliptin (Linagliptin 5 Mg Tablet) 5 mg PO DAILY@0800 [facility] Last Admin: 11/09/21 09:33 Dose: 5 mg Documented by: Metformin HCl (Metformin 500 Mg Tab) 1,000 mg PO BID-W/MEALS [facility] Last Admin: 11/09/21 17:35 Dose: 1,000 mg Documented by: Naloxone HCl (Naloxone 0.4 Mg/Ml 1 Ml Vial) 0.2 mg IV Q2M PRN PRN Reason: Opioid Reversal Zinc Sulfate (Zinc Sulfate 220 Mg Cap) 220 mg PO DAILY [facility] Last Admin: 11/09/21 09:32 Dose: 220 mg Documented by: Past medical history to include: COPD, diabetes, hypertension, morbid obesity, home oxygen 2 L, schizophrenia, morbid obesity Social history: Assisted living.. Smokes at least a pack and a half a day since the age of 15. That is about 45 years. No alcohol. Family history: Patient cannot tell Physical examination: VITAL SIGNS: 97.9, 63, 18, 131/68, 93% on 10 L GENERAL: Propped up in bed , awake, some shortness of breath LUNGS:[ Respiratory rate increased, PSYCH AO 3. Slightly anxious. NEUROLOGICAL: Cranial nerves grossly intact; no facial asymmetry, moving limbs Rest of the exam per pulmonary and nursing INVESTIGATIONS, reviewed in the clinical context: November 09: D-dimer 0.7 to CRP 2.2. Accu-Cheks November 08: D-dimer 0.64 CRP 3 November 07: White count 7.3 hemoglobin 11.1 platelets 212. Accu-Cheks November 06: Accu-Cheks noted. ABG from last night showed a pCO2 of 72 White count 6.4 hemoglobin 11.5 platelets 185 sodium 135 potassium 4.1 bicarb 35 creatinine 0.62 Lactic acid 2.2 CRP 3.6 procalcitonin 0.03 Coronavirus [PCR]: Detected Influenza type A/type B: Not detected EKG tracing personally reviewed by me-not a good quality EKG. Sinus rhythm. Nonspecific ST segment changes Chest x-ray film personally reviewed by me-bilateral lower zone infiltrates Assessment and plan: -Acute severe COVID 19 pneumonitis bilateral. In a non-vaccinate patient.: Slow to respond Vitamin C, vitamin D, zinc, dexamethasone. Subcu Lovenox -Acute severe hypoxic respiratory failure from COVID 19 pneumonitis: Slow to respond Currently on high flow10 L oxygen -Chronic nicotine dependence, cigarette smoker Nicotine patch -Acute COPD exacerbation in a current smoker: Slow to respond Albuterol 4 puffs every 4 with spacer. Dexamethasone. -Acute delirium/metabolic encephalopathy from hypoxia: Better Follow clinically -Schizophrenia: Depakote ER, Clozaril -Hyperlipidemia Lipitor 20 mg daily at bedtime -Diabetes mellitus type 2 on oral hypoglycemic: Uncontrolled with hyperglycemia, from steroids Resume metformin.. Follow Accu-Cheks and sliding scale insulin. Increase Levemir 18 units subcu daily at bedtime -Obesity BMI 39.[address] the [address] -Chronic hypoxic respiratory failure on 2 L nasal cannula from underlying COPD Dexamethasone. Subcu Lovenox. Increase Levemir to 18 units 10 L nasal cannula. Discussed with patient.
[2021-11-09 20:56] LABS: Glucose,Whole Blood 327 mg/dL (75-99)
[2021-11-09] MEDS: ATORVASTATIN 20 MG TAB PO SCH (21:19)
[2021-11-09] MEDS: DIVALPROEX ER 500 MG TAB.ER.24H PO SCH (21:19)
[2021-11-09] MEDS: INSULIN DETEMIR (LEVEMIR) 100 UNIT/ML SYR SQ SCH (21:20)
[2021-11-09] MEDS: cloZAPine 100 MG TAB PO SCH (21:20)
[2021-11-10] MEDS: ALBUTEROL HFA INHALER INHALATION SCH ×6 (00:20→19:05)
[2021-11-10 06:39] LABS: Glucose,Whole Blood 139 mg/dL (75-99)
[2021-11-10] MEDS: metFORMIN 500 MG TAB PO SCH ×2 (06:48→17:05)
[2021-11-10] MEDS: INSULIN ASPART (NovoLOG) 100 UNIT/ML VIAL SQ SCH ×4 (06:50→17:06)
--- NOTE | 2021-11-10 07:35 | XR ---
EXAMINATION TYPE: XR chest 1V portable DATE OF EXAM: 11/10/2021 COMPARISON: 11/05/2021 HISTORY: Suspected Covid pneumonia TECHNIQUE: Single frontal view of the chest is obtained. FINDINGS: There is mild diffuse interstitial opacity and a small focal right infrahilar opacity whic h for allowing for differences in technique are essentially unchanged compared to previous. There is no large pleural effusion and no pneumothorax. Heart size is mildly prominent. The osseous structures are intact. IMPRESSION: No change in the bilateral lung infiltrates
[2021-11-10] MEDS: dexAMETHasone 2 MG TAB PO SCH (08:12)
[2021-11-10] MEDS: AMMONIUM LACTATE 12% CREAM 140 GM TUBE TOPICAL SCH ×2 (08:12→22:19)
[2021-11-10] MEDS: ZINC SULFATE 220 MG CAP PO SCH (08:12)
[2021-11-10] MEDS: ENOXAPARIN 40 MG/0.4 ML SYRINGE SQ SCH (08:12)
[2021-11-10] MEDS: LINAGLIPTIN 5 MG TABLET PO SCH (08:12)
[2021-11-10] MEDS: ASCORBIC ACID 500 MG TAB PO SCH ×2 (08:12→22:19)
[2021-11-10] MEDS: CHOLECALCIFEROL 125 MCG (5000 IU) TABLET PO SCH (08:12)
[2021-11-10] MEDS: SYMBICORT 160-4.5 MCG INHALER INHALATION SCH ×2 (08:32→19:05)
[2021-11-10 12:17] LABS: Glucose,Whole Blood 180 mg/dL (75-99)
--- NOTE | 2021-11-10 14:43 | P.PN ---
Subjective Progress Note Date: 11/10/21 11/10/2021, the patient is sleepy. I'm wondering whether this is resulting from her second troponin medication including the Clozaril that she stated on her milligrams at bedtime. She is spending most of the time in bed. She was weaned down to 8 L yesterday desaturated and she was placed back on 10 L about 2 by nasal cannula. She remains on Decadron 6 mg by mouth on a daily basis. She remains on Levemir insulin 18 units along with ascites care coverage and she is also on anticoagulation with Lovenox 40 mg subcu daily basis. The patient has a d-dimer of 0.7. CRP is at 3.2. No recent labs are available from today. Most recent blood sugar from today is at 180. The patient is arousable. No altered mentation. No confusion. No agitation. Denies having any worsening shortness of breath and she is resting comfortably in bed. Hardly using his incentive spirometer. She is encouraged further. Level of activity is minimal at this point in time. Objective - Vital Signs Vital signs: Vital Signs Temp 98.4 F 11/10/21 11:57 Pulse 58 L 11/10/21 13:51 Resp 18 11/10/21 13:51 BP 132/78 11/10/21 11:57 Pulse Ox 95 11/10/21 11:57 Intake & Output 11/09/21 11/10/21 11/10/21 18:59 06:59 18:59 Intake Total 1320 360 Output Total 2600 200 Balance 1320 -2600 160 Intake: Oral 1320 360 Output: Urine 2600 200 Other: Voiding Method Indwelling Catheter Indwelling Catheter Indwelling Catheter # Bowel Movements 2 1 - Exam General: Disheveled female, no distress, appears older than stated age, morbidly obese, carries ability mass index of 39.2, breathing is mildly labored and the patient is currently on 10 L of oxygen by nasal cannula Derm: Bilateral lower extremity chronic venous stasis changes with 2+ lower extremity pitting edema, warm, dry Head: atraumatic, normocephalic, symmetric Eyes: EOMI, no lid lag, anicteric sclera, pupils equal round reactive to light ENT: Nose and ears atraumatic, no thrush, no pharyngeal erythema Neck: No thyromegaly, no cervical lymphadenopathy, trachea midline, supple Mouth: no lip lesion, mucus membranes dry Cardiovascular: S1S2 reg, no murmur, positive posterior tibial pulse bilateral, bilateral lower extremity 2+ pitting edema, capillary refill less than 2 seconds Lungs: Diminished breath along with crackles at lung bases bilaterally, no rhonchi, no rales , no accessory muscle use Abdominal: soft, nontender to palpation, no guarding, no appreciable organomegaly, normal bowel sounds Ext: no gross muscle atrophy, muscle strength 5 out of 5 in all 4 extremities grossly, no contractures, Neuro: CN II-XI grossly intact, light touch intact all 4 extremities - Labs CBC & Chem 7: 11/07/21 06:59 11/05/21 08:58 Labs: Abnormal Lab Results - Last 24 Hours (Table) 11/09/21 11/09/21 11/10/21 Range/Units 16:39 20:39 06:36 POC Glucose (mg/dL) 222 H 327 H 139 H (75-99) mg/dL 11/10/21 Range/Units 12:05 POC Glucose (mg/dL) 180 H (75-99) mg/dL Assessment and Plan Plan: 1 acute hypoxic respiratory failure. The patient presents emergency with altered mentation and the patient was quite hypoxic and the patient was found to have a COVID 19 related pneumonia with bilateral pulmonary infiltrates left more than right. The patient is currently on 10 liters of oxygen by nasal cannula. Condition is stable and off as is being gradually weaned off. 2 acute COVID 19 related pneumonia 3 mild lactic acidosis 4 mild elevation of the inflammatory markers secondary to above 5 history of schizophrenia with significant impairment in her functionality due to mental health 6 altered mentation secondary to schizophrenia and possibly further complimented by development of hypoxemia, but admission. Neurologic exam is nonfocal 7 diabetes mellitus 8 hypertension 9 hyperlipidemia 10 morbid obesity with a BMI of 39.2 11 chronic lower extremity edema bilaterally 12 COPD Plan Condition remains unchanged Consider reducing the dose of Clozaril as the patient is quite somnolent and sleepy There may be a component of obstructive sleep apnea contributing to her increased sleepiness. May utilize CPAP overnight and we'll order CPAP to be used at at the pressure minimum of 5 and a maximum 15 Wean FiO2, currently on 10 L, unable to wean as the patient's pulse ox is currently around 91-92%. Inflammatory markers are low. continue Decadron 6 mgby mouth every 24 hours Exact onset of symptoms with COVID 19 is not known, and as such the patient is not a candidate for Remdesivir Check pro calcitonin level is low at 0.03 Check d-dimer is low at 0.5 Put the patient on Lovenox 40 prophylaxis 40 mg subcu Abdomen multiple vitamins including vitamin C and vitamin D and zinc psychotropic medication of been all resumed Monitor blood sugar and give the patient is slight scale insulin coverage in addition to her routine diabetic medications, the patient is currently on Levemir insulin for blood sugar control in addition to sliding scale coverage. I will leave the blood sugar management up to medicine. IV fluids and currently at [facility] Home medications have been resumed including her mental health medications Symbicort and albuterol HFA [id number] as needed very important for this patient to increase mobility and activity. We'll try to move her up on a chair today. Wean off FiO2 as tolerated. We'll continue to follow.
--- NOTE | 2021-11-10 15:24 | P.PN ---
Progress Note - Text Progress Note Date: 11/10/21 Chief Complaint: Short of breath History of presenting complaint This is a 61-year-old patient, follows with Dr. West from visiting physicians. Chronic stable medical conditions include diabetes, hypertension, schizophrenia, morbid obesity, smoker. She was sent in from the assisted living. Patient's found to be confused different from baseline. She was found to have a pulse ox appears to be in the 50s. Patient be short of breath and tired. I saw the patient in the ER. Patient somewhat delirious. Initially he was supplied 6 L of nasal cannula. He did pepper picker to 100%. Unable to obtain any detailed history from the patient. Patient is a cough. She did have some fever. Nurse informed me that patient did not take the COVID-19 vaccine. And patient did positive for COVID-19 in the ER. Patient on 15 L high flow oxygen. Admitted with acute COVID-19 bilateral pneumonitis, acute hypoxic respiratory failure, acute delirium/encephalopathy from hypoxia, acute COPD exacerbation. Place and IV fluids, high flow nasal cannula. Dexamethasone. Symbicort, [place]. Subcu Lovenox. November 06: More awake today. Hungry. Eating. On 13 L of high flow nasal cannula. Answering questions bit more appropriately. Short of breath. Tired. November 07: Patient's had a full lunch. Still very hungry. Watching television. Short of breath. On 15 L nasal cannula. Answering questions. Awake.. November 08: Eating well. FiO2 down to 10 L. Breathing a bit better. Less short of breath. November 09: Remains on 10 L of oxygen. Oral intake good. Some shortness breath. Some cough. November 10: Eating well. 10 L nasal cannula. Some shortness of breath. Recl ining in bed. Review of systems: Was done for constitutional, cardiovascular, GI, pulmonary. relevant finding as above Active Medications Acetaminophen (Acetaminophen Tab 500 Mg Tab) 1,000 mg PO Q6HR PRN PRN Reason: Fever>101 Albuterol Sulfate (Albuterol Hfa Inhaler) 2 puff INHALATION RT-Q6H PRN PRN Reason: Shortness Of Breath Or Wheezing Albuterol Sulfate (Albuterol Hfa Inhaler) 4 puff INHALATION Q4H TRISH Last Admin: 11/10/21 11:41 Dose: Not Given Documented by: Ascorbic Acid (Ascorbic Acid 500 Mg Tab) 500 mg PO BID [facility] Last Admin: 11/10/21 08:12 Dose: 500 mg Documented by: Atorvastatin Calcium (Atorvastatin 20 Mg Tab) 20 mg PO [facility] Last Admin: 11/09/21 21:19 Dose: 20 mg Documented by: Budesonide/Formoterol Fumarate (Symbicort 160-4.5 Mcg Inhaler) 2 puff INHALATION RT-BID@, [facility] Last Admin: 11/10/21 08:32 Dose: 2 puff Documented by: Cholecalciferol (Cholecalciferol 125 Mcg (5000 Iu) Tablet) 125 mcg PO DAILY [facility] Last Admin: 11/10/21 08:12 Dose: 125 mcg Documented by: Clozapine (Clozapine 100 Mg Tab) 200 mg PO [facility] Stop: 11/14/21 23:00 Last Admin: 11/09/21 21:20 Dose: 200 mg Documented by: Dexamethasone (Dexamethasone 2 Mg Tab) 6 mg PO DAILY [facility] Last Admin: 11/10/21 08:12 Dose: 6 mg Documented by: Divalproex Sodium (Divalproex Er 500 Mg Tab.Er.24h) 1,500 mg PO [facility] Last Admin: 11/09/21 21:19 Dose: 1,500 mg Documented by: Enoxaparin Sodium (Enoxaparin 40 Mg/0.4 Ml Syringe) 40 mg SQ DAILY [facility] Last Admin: 11/10/21 08:12 Dose: 40 mg Documented by: Ergocalciferol (Ergocalciferol 1,250 Mcg (50,000 Iu) Capsule) 1,250 mcg PO FR@0800 [facility] Last Admin: 11/09/21 09:33 Dose: 1,250 mcg Documented by: Sodium Chloride (Saline 0.9%) 1,000 mls @ 10 mls/hr IV .Q24H [facility] Last Admin: 11/09/21 17:36 Dose: Not Given Documented by: Insulin Aspart (Insulin Aspart (Novolog) 100 Unit/Ml Vial) 0 unit SQ AC-TID [facility]; Protocol Last Admin: 11/10/21 12:35 Dose: 4 unit Documented by: Insulin Detemir (Insulin Detemir (Levemir) 100 Unit/Ml Syr) 18 unit SQ [facility] Last Admin: 11/09/21 21:20 Dose: 18 unit Documented by: Lactic Acid (Ammonium Lactate 12% Cream 140 Gm Tube) 1 applic TOPICAL BID@0800, 2100 [facility]; Protocol Last Admin: 11/10/21 08:12 Dose: 1 applic Documented by: Linagliptin (Linagliptin 5 Mg Tablet) 5 mg PO DAILY@0800 [facility] Last Admin: 11/10/21 08:12 Dose: 5 mg Documented by: Metformin HCl (Metformin 500 Mg Tab) 1,000 mg PO BID-W/MEALS [facility] Last Admin: 11/10/21 06:48 Dose: 1,000 mg Documented by: Naloxone HCl (Naloxone 0.4 Mg/Ml 1 Ml Vial) 0.2 mg IV Q2M PRN PRN Reason: Opioid Reversal Zinc Sulfate (Zinc Sulfate 220 Mg Cap) 220 mg PO DAILY [facility] Last Admin: 11/10/21 08:12 Dose: 220 mg Documented by: Past medical history to include: COPD, diabetes, hypertension, morbid obesity, home oxygen 2 L, schizophrenia, morbid obesity Social history: Assisted living.. Smokes at least a pack and a half a day since the age of 15. That is about 45 years. No alcohol. Family history: Patient cannot tell Physical examination: VITAL SIGNS: 98.4, 58, 18, 132/78, 95% on 10 L GENERAL: Propped up in bed , awake, some shortness of breath LUNGS:Respiratory rate increased, PSYCH AO 3. Slightly anxious. NEUROLOGICAL: Cranial nerves grossly intact; no facial asymmetry, moving limbs Rest of the exam per pulmonary and nursing INVESTIGATIONS, reviewed in the clinical context: November 09: D-dimer 0.7 to CRP 2.2. Accu-Cheks November 08: D-dimer 0.64 CRP 3 November 07: White count 7.3 hemoglobin 11.1 platelets 212. Accu-Cheks November 06: Accu-Cheks noted. ABG from last night showed a pCO2 of 72 White count 6.4 hemoglobin 11.5 platelets 185 sodium 135 potassium 4.1 bicarb 35 creatinine 0.62 Lactic acid 2.2 CRP 3.6 procalcitonin 0.03 Coronavirus [PCR]: Detected Influenza type A/type B: Not detected EKG tracing personally reviewed by me-not a good quality EKG. Sinus rhythm. Nonspecific ST segment changes Chest x-ray film personally reviewed by me-bilateral lower zone infiltrates Assessment and plan: -Acute severe COVID 19 pneumonitis bilateral. In a non-vaccinate patient.: Slow to respond Vitamin C, vitamin D, zinc, dexamethasone. Subcu Lovenox -Acute severe hypoxic respiratory failure from COVID 19 pneumonitis: Slow to respond Currently on high flow10 L oxygen -Chronic nicotine dependence, cigarette smoker Nicotine patch -Acute COPD exacerbation in a current smoker: Slow to respond Albuterol 4 puffs every 4 with spacer. Dexamethasone. -Acute delirium/metabolic encephalopathy from hypoxia: Better Follow clinically -Schizophrenia: Depakote ER, Clozaril -Hyperlipidemia Lipitor 20 mg daily at bedtime -Diabetes mellitus type 2 on oral hypoglycemic: Uncontrolled with hyperglycemia, from steroids Resume metformin.. Follow Accu-Cheks and sliding scale insulin. Levemir 18 units subcu daily at bedtime. Add 3 units of Humalog with meals -Obesity BMI 39.2 [address] loss measures down the road -Chronic hypoxic respiratory failure on 2 L nasal cannula from underlying COPD Dexamethasone. Subcu Lovenox. Levemir to 18 units 10 L nasal cannula. Try to decrease FiO2. Add 3 units of Humalog with meals
[2021-11-10 16:46] LABS: Glucose,Whole Blood 206 mg/dL (75-99)
[2021-11-10] MEDS: SODIUM CHLORIDE 0.9% 1,000 ML IV SCH (17:10)
[2021-11-10 21:41] LABS: Glucose,Whole Blood 197 mg/dL (75-99)
[2021-11-10] MEDS: cloZAPine 100 MG TAB PO SCH (22:18)
[2021-11-10] MEDS: INSULIN DETEMIR (LEVEMIR) 100 UNIT/ML SYR SQ SCH (22:19)
[2021-11-10] MEDS: DIVALPROEX ER 500 MG TAB.ER.24H PO SCH (22:19)
[2021-11-10] MEDS: ATORVASTATIN 20 MG TAB PO SCH (22:19)
[2021-11-11] MEDS: ALBUTEROL HFA INHALER INHALATION SCH ×7 (00:59→23:26)
[2021-11-11 07:09] LABS: Glucose,Whole Blood 162 mg/dL (75-99)
[2021-11-11] MEDS: SYMBICORT 160-4.5 MCG INHALER INHALATION SCH ×2 (08:23→20:30)
[2021-11-11] MEDS: ENOXAPARIN 40 MG/0.4 ML SYRINGE SQ SCH (08:25)
[2021-11-11] MEDS: LINAGLIPTIN 5 MG TABLET PO SCH (08:26)
[2021-11-11] MEDS: INSULIN ASPART (NovoLOG) 100 UNIT/ML VIAL SQ SCH ×6 (08:26→16:49)
[2021-11-11] MEDS: CHOLECALCIFEROL 125 MCG (5000 IU) TABLET PO SCH (08:26)
[2021-11-11] MEDS: ZINC SULFATE 220 MG CAP PO SCH (08:26)
[2021-11-11] MEDS: metFORMIN 500 MG TAB PO SCH ×2 (08:26→16:49)
[2021-11-11] MEDS: dexAMETHasone 2 MG TAB PO SCH (08:26)
[2021-11-11] MEDS: ASCORBIC ACID 500 MG TAB PO SCH ×2 (08:26→21:06)
[2021-11-11] MEDS: AMMONIUM LACTATE 12% CREAM 140 GM TUBE TOPICAL SCH ×2 (08:28→21:09)
[2021-11-11 12:09] LABS: Glucose,Whole Blood 159 mg/dL (75-99)
--- NOTE | 2021-11-11 14:43 | P.PN ---
Subjective Progress Note Date: 11/11/21 Principal diagnosis: Acute hypoxic respiratory failure 11/10/2021, the patient is sleepy. I'm wondering whether this is resulting from her second troponin medication including the Clozaril that she stated on her milligrams at bedtime. She is spending most of the time in bed. She was weaned down to 8 L yesterday desaturated and she was placed back on 10 L about 2 by nasal cannula. She remains on Decadron 6 mg by mouth on a daily basis. She remains on Levemir insulin 18 units along with ascites care coverage and she is also on anticoagulation with Lovenox 40 mg subcu daily basis. The patient has a d-dimer of 0.7. CRP is at 3.2. No recent labs are available from today. Most recent blood sugar from today is at 180. The patient is arousable. No altered mentation. No confusion. No agitation. Denies having any worsening shortness of breath and she is resting comfortably in bed. Hardly using his incentive spirometer. She is encouraged further. Level of activity is minimal at this point in time. On 11/11/2021 patient seen in follow-up on selective care unit, she is awake, in no acute distress, she is on 10 L of oxygen pulse ox is 96%, she is intermitte ntly lethargic, patient apparently refused BiPAP last night. She has been sleeping on today's exam, currently on Decadron 6 mg daily, she is on prophylactic dose Lovenox 40 mg daily, she is on multivitamins, she is on Ventolin and Symbicort. Does not appear to be in acute respiratory distress, but does appear to be lethargic. She is on home dose Clozaril 200 mg by mouth at bedtime Objective - Vital Signs Vital signs: Vital Signs Temp 98.3 F 11/11/21 12:00 Pulse 61 11/11/21 14:00 Resp 16 11/11/21 14:00 BP 109/60 11/11/21 12:00 Pulse Ox 96 11/11/21 12:00 Intake & Output 11/10/21 11/11/21 11/11/21 18:59 06:59 18:59 Intake Total 360 10 Output Total 900 950 Balance -540 -940 Intake: IV 10 Invasive Line 4 10 Oral 360 Output: Urine 900 950 Other: Voiding Method Indwelling Catheter Indwelling Catheter Indwelling Catheter # Bowel Movements 1 1 - Exam GENERAL EXAM: Alert, oriented times 3, 61 yo morbidly obese female comfortable in no apparent distress. HEAD: Normocephalic/atraumatic. EYES: Normal reaction of pupils, equal size. Conjunctiva pink, sclera white. NOSE: Clear with pink turbinates. THROAT: No erythema or exudates. NECK: No masses, no JVD, no thyroid enlargement, no adenopathy. CHEST: No chest wall deformity. Symmetrical expansion. LUNGS: Equal air entry with few scattered crackles CVS: Regular rate and rhythm, normal S1 and S2, no gallops, no murmurs, no rubs ABDOMEN: Soft, nontender. No hepatosplenomegaly, normal bowel sounds, no guarding or rigidity. EXTREMITIES: No clubbing, no edema, no cyanosis, 2+ pulses and upper and lower extremities. MUSCULOSKELETAL: Muscle strength and tone normal. SPINE: No scoliosis or deformity SKIN: No rashes CENTRAL NERVOUS SYSTEM: Alert and oriented -3. No focal deficits, tone is normal in all 4 extremities. PSYCHIATRIC: Alert and oriented -3. Appropriate affect. Intact judgment and insight. - Labs CBC & Chem 7: 11/07/21 06:59 11/05/21 08:58 Labs: Abnormal Lab Results - Last 24 Hours (Table) 11/10/21 11/10/21 11/11/21 Range/Units 16:45 21:31 07:07 POC Glucose (mg/dL) 206 H 197 H 162 H (75-99) mg/dL 11/11/21 Range/Units 12:07 POC Glucose (mg/dL) 159 H (75-99) mg/dL Assessment and Plan Plan: Assessment: 1 acute hypoxic respiratory failure. The patient presents emergency with altered mentation and the patient was quite hypoxic and the patient was found to have a COVID 19 related pneumonia with bilateral pulmonary infiltrates left more than right. The patient is currently on 10 liters of oxygen by nasal cannula. Condition is stable and off as is being gradually weaned off. 2 acute COVID 19 related pneumonia 3 mild lactic acidosis 4 mild elevation of the inflammatory markers secondary to above 5 history of schizophrenia with significant impairment in her functionality due to mental health 6 altered mentation secondary to schizophrenia and possibly further complimented by development of hypoxemia, but admission. Neurologic exam is nonfocal 7 diabetes mellitus 8 hypertension 9 hyperlipidemia 10 morbid obesity with a BMI of 39.2 11 chronic lower extremity edema bilaterally 12 COPD Plan: Vital signs have been stable Continue weaning FiO2 to keep O2 sats Patient is on sleepy Recommend BiPAP at bedtime We'll recommend adjusting Clazuril dose- we'll defer to primary care service or psychiatry service for that Continue current dose Decadron Continue Lovenox Continue multivitamins Today's labs have been noted I performed a history & physical examination of the patient and discussed their management with my nurse practitioner, Evelia Bernabe. I reviewed the nurse practitioner's note and agree with the documented findings and plan of care. L sergey sounds are positive for diffuse wheezes throughout the lung nixon. The findings and the impression was discussed with the patient. I attest to the documentation by the nurse practitioner. Time with Patient: Less than 30
--- NOTE | 2021-11-11 16:14 | P.PN ---
Progress Note - Text Progress Note Date: 11/11/21 Chief Complaint: Short of breath History of presenting complaint This is a 61-year-old patient, follows with Dr. West from visiting physicians. Chronic stable medical conditions include diabetes, hypertension, schizophrenia, morbid obesity, smoker. She was sent in from the assisted living. Patient's found to be confused different from baseline. She was found to have a pulse ox appears to be in the 50s. Patient be short of breath and tired. I saw the patient in the ER. Patient somewhat delirious. Initially he was supplied 6 L of nasal cannula. He did poultry picker to 100%. Unable to obtain any detailed history from the patient. Patient is a cough. She did have some fever. Nurse informed me that patient did not take the COVID-19 vaccine. And patient did positive for COVID-19 in the ER. Patient on 15 L high flow oxygen. Admitted with acute COVID-19 bilateral pneumonitis, acute hypoxic respiratory failure, acute delirium/encephalopathy from hypoxia, acute COPD exacerbation. Place and IV fluids, high flow nasal cannula. Dexamethasone. Symbicort, Chapo tolin. Subcu Lovenox. November 06: More awake today. Hungry. Eating. On 13 L of high flow nasal cannula. Answering questions bit more appropriately. Short of breath. Tired. November 07: Patient's had a full lunch. Still very hungry. Watching television. Short of breath. On 15 L nasal cannula. Answering questions. Awake.. November 08: Eating well. FiO2 down to 10 L. Breathing a bit better. Less short of breath. November 09: Remains on 10 L of oxygen. Oral intake good. Some shortness breath. Some cough. November 10: Eating well. 10 L nasal cannula. Some shortness of breath. Recl ining in bed. November 11: Remains on 10 L nasal cannula. Short of breath. Eating well. In bed. Some cough. We will attempt to dropped FiO2. Review of systems: Was done for constitutional, cardiovascular, GI, pulmonary. relevant finding as above Active Medications Acetaminophen (Acetaminophen Tab 500 Mg Tab) 1,000 mg PO Q6HR PRN PRN Reason: Fever>101 Albuterol Sulfate (Albuterol Hfa Inhaler) 2 puff INHALATION RT-Q6H PRN PRN Reason: Shortness Of Breath Or Wheezing Albuterol Sulfate (Albuterol Hfa Inhaler) 4 puff INHALATION Q4H [facility] Last Admin: 11/11/21 15:33 Dose: 4 puff Documented by: Ascorbic Acid (Ascorbic Acid 500 Mg Tab) 500 mg PO BID [facility] Last Admin: 11/11/21 08:26 Dose: 500 mg Documented by: Atorvastatin Calcium (Atorvastatin 20 Mg Tab) 20 mg PO [facility] Last Admin: 11/10/21 22:19 Dose: 20 mg Documented by: Budesonide/Formoterol Fumarate (Symbicort 160-4.5 Mcg Inhaler) 2 puff INHALATION RT-BID@08,21 [facility] Last Admin: 11/11/21 08:23 Dose: 2 puff Documented by: Cholecalciferol (Cholecalciferol 125 Mcg (5000 Iu) Tablet) 125 mcg PO DAILY [facility] Last Admin: 11/11/21 08:26 Dose: 125 mcg Documented by: Clozapine (Clozapine 100 Mg Tab) 200 mg PO [facility] Stop: 11/14/21 23:00 Last Admin: 11/10/21 22:18 Dose: 200 mg Documented by: Dexamethasone (Dexamethasone 2 Mg Tab) 6 mg PO DAILY [facility] Last Admin: 11/11/21 08:26 Dose: 6 mg Documented by: Divalproex Sodium (Divalproex Er 500 Mg Tab.Er.24h) 1,500 mg PO [facility] Last Admin: 11/10/21 22:19 Dose: 1,500 mg Documented by: Enoxaparin Sodium (Enoxaparin 40 Mg/0.4 Ml Syringe) 40 mg SQ DAILY [facility] Last Admin: 11/11/21 08:25 Dose: 40 mg Documented by: Ergocalciferol (Ergocalciferol 1,250 Mcg (50,000 Iu) Capsule) 1,250 mcg PO FR@0800 [facility] Last Admin: 11/09/21 09:33 Dose: 1,250 mcg Documented by: Sodium Chloride (Saline 0.9%) 1,000 mls @ 10 mls/hr IV .Q24H [facility] Last Admin: 11/10/21 17:10 Dose: 10 mls/hr Documented by: Insulin Aspart (Insulin Aspart (Novolog) 100 Unit/Ml Vial) 0 unit SQ AC-TID [facility]; Protocol Last Admin: 11/11/21 12:17 Dose: 3 unit Documented by: Insulin Aspart (Insulin Aspart (Novolog) 100 Unit/Ml Vial) 3 unit SQ AC-TID [facility] Last Admin: 11/11/21 12:17 Dose: 3 unit Documented by: Insulin Detemir (Insulin Detemir (Levemir) 100 Unit/Ml Syr) 18 unit SQ HS [facility] Last Admin: 11/10/21 22:19 Dose: 18 unit Documented by: Lactic Acid (Ammonium Lactate 12% Cream 140 Gm Tube) 1 applic TOPICAL BID@0800,2100 [facility]; Protocol Last Admin: 11/11/21 08:28 Dose: 1 applic Documented by: Linagliptin (Linagliptin 5 Mg Tablet) 5 mg PO DAILY@0800 [facility] Last Admin: 11/11/21 08:26 Dose: 5 mg Documented by: Metformin HCl (Metformin 500 Mg Tab) 1,000 mg PO BID-W/MEALS [facility] Last Admin: 11/11/21 08:26 Dose: 1,000 mg Documented by: Naloxone HCl (Naloxone 0.4 Mg/Ml 1 Ml Vial) 0.2 mg IV Q2M PRN PRN Reason: Opioid Reversal Zinc Sulfate (Zinc Sulfate 220 Mg Cap) 220 mg PO DAILY [facility] Last Admin: 11/11/21 08:26 Dose: 220 mg Documented by: Past medical history to include: COPD, diabetes, hypertension, morbid obesity, home oxygen 2 L, schizophrenia, morbid obesity Social history: Assisted living.. Smokes at least a pack and a half a day since the age of 15. That is about 45 years. No alcohol. Family history: Patient cannot tell Physical examination: VITAL SIGNS: At 8.3, 61, 16, 109/60, 96% on 2 L GENERAL: Propped up in bed , awake, shortness of breath LUNGS:Respiratory rate increased, PSYCH AO 3. Slightly anxious. NEUROLOGICAL: Cranial nerves grossly intact; no facial asymmetry, moving limbs Rest of the exam per pulmonary and nursing INVESTIGATIONS, reviewed in the clinical context: November 10: D-dimer 0.4 CRP 0.9 November 09: D-dimer 0.7 to CRP 2.2. Accu-Cheks November 08: D-dimer 0.64 CRP 3 November 07: White count 7.3 hemoglobin 11.1 platelets 212. Accu-Cheks November 06: Accu-Cheks noted. ABG from last night showed a pCO2 of 72 White count 6.4 hemoglobin 11.5 platelets 185 sodium 135 potassium 4.1 bicarb 35 creatinine 0.62 Lactic acid 2.2 CRP 3.6 procalcitonin 0.03 Coronavirus [PCR]: Detected Influenza type A/type B: Not detected EKG tracing personally reviewed by me-not a good quality EKG. Sinus rhythm. Nonspecific ST segment changes Chest x-ray film personally reviewed by me-bilateral lower zone infiltrates Assessment and plan: -Acute severe COVID 19 pneumonitis bilateral. In a non-vaccinate patient.: Slow to respond Vitamin C, vitamin D, zinc, dexamethasone. Subcu Lovenox -Acute severe hypoxic respiratory failure from COVID 19 pneumonitis: Slow to respond Currently on high flow10 L oxygen -Chronic nicotine dependence, cigarette smoker Nicotine patch -Acute COPD exacerbation in a current smoker: Slow to respond Albuterol 4 puffs every 4 with spacer. Dexamethasone. -Acute delirium/metabolic encephalopathy from hypoxia: Better Follow clinically -Schizophrenia: Depakote ER, Clozaril -Hyperlipidemia Lipitor 20 mg daily at bedtime -Diabetes mellitus type 2 on oral hypoglycemic: Uncontrolled with hyperglycemia, from steroids Resume metformin.. Follow Accu-Cheks and sliding scale insulin. Increase Levemir 22 units subcu daily at bedtime. Add 3 units of Humalog with meals -Obesity BMI 39.[address] measures [address] the road -Chronic hypoxic respiratory failure on 2 L nasal cannula from underlying COPD Dexamethasone. Subcu Lovenox. Increase Levemir to 22 units 10 L nasal cannula. Try to decrease FiO2. Discussed with patient and nurse.
[2021-11-11 16:42] LABS: Glucose,Whole Blood 236 mg/dL (75-99)
[2021-11-11] MEDS: SODIUM CHLORIDE 0.9% 1,000 ML IV SCH (16:49)
[2021-11-11 20:37] LABS: Glucose,Whole Blood 186 mg/dL (75-99)
[2021-11-11] MEDS ORDERED: INSULIN DETEMIR (LEVEMIR) 100 UNIT/ML SYR SQ SCH (21:00)
[2021-11-11] MEDS: DIVALPROEX ER 500 MG TAB.ER.24H PO SCH (21:06)
[2021-11-11] MEDS: cloZAPine 100 MG TAB PO SCH (21:06)
[2021-11-11] MEDS: ATORVASTATIN 20 MG TAB PO SCH (21:06)
[2021-11-12] MEDS: ALBUTEROL HFA INHALER INHALATION SCH ×5 (03:18→20:18)
[2021-11-12 06:24] LABS: Glucose,Whole Blood 150 mg/dL (75-99)
[2021-11-12] MEDS: INSULIN ASPART (NovoLOG) 100 UNIT/ML VIAL SQ SCH ×6 (06:41→17:01)
[2021-11-12] MEDS: metFORMIN 500 MG TAB PO SCH ×2 (06:41→17:01)
[2021-11-12] MEDS: SYMBICORT 160-4.5 MCG INHALER INHALATION SCH ×2 (07:46→20:18)
[2021-11-12] MEDS: ASCORBIC ACID 500 MG TAB PO SCH ×2 (09:35→20:21)
[2021-11-12] MEDS: CHOLECALCIFEROL 125 MCG (5000 IU) TABLET PO SCH (09:35)
[2021-11-12] MEDS: ENOXAPARIN 40 MG/0.4 ML SYRINGE SQ SCH (09:35)
[2021-11-12] MEDS: LINAGLIPTIN 5 MG TABLET PO SCH (09:35)
[2021-11-12] MEDS: dexAMETHasone 2 MG TAB PO SCH (09:35)
[2021-11-12] MEDS: ZINC SULFATE 220 MG CAP PO SCH (09:35)
[2021-11-12] MEDS: AMMONIUM LACTATE 12% CREAM 140 GM TUBE TOPICAL SCH ×2 (09:36→20:21)
[2021-11-12 11:55] LABS: Glucose,Whole Blood 143 mg/dL (75-99)
[2021-11-12 13:41] VITALS: BMI 39.1
--- NOTE | 2021-11-12 15:07 | P.PN ---
Progress Note - Text Progress Note Date: 11/12/21 Chief Complaint: Short of breath History of presenting complaint This is a 61-year-old patient, follows with Dr. West from visiting physicians. Chronic stable medical conditions include diabetes, hypertension, schizophrenia, morbid obesity, smoker. She was sent in from the assisted living. Patient's found to be confused different from baseline. She was found to have a pulse ox appears to be in the 50s. Patient be short of breath and tired. I saw the patient in the ER. Patient somewhat delirious. Initially he was supplied 6 L of nasal cannula. He did picket [employer] to 100%. Unable to obtain any detailed history from the patient. Patient is a cough. She did have some fever. Nurse informed me that patient did not take the COVID-19 vaccine. And patient did positive for COVID-19 in the ER. Patient on 15 L high flow oxygen. Admitted with acute COVID-19 bilateral pneumonitis, acute hypoxic respiratory failure, acute delirium/encephalopathy from hypoxia, acute COPD exacerbation. Place and IV fluids, high flow nasal cannula. Dexamethasone. Symbicort, Chapo tolin. Subcu Lovenox. November 06: More awake today. Hungry. Eating. On 13 L of high flow nasal cannula. Answering questions bit more appropriately. Short of breath. Tired. November 07: Patient's had a full lunch. Still very hungry. Watching television. Short of breath. On 15 L nasal cannula. Answering questions. Awake.. November 08: Eating well. FiO2 down to 10 L. Breathing a bit better. Less short of breath. November 09: Remains on 10 L of oxygen. Oral intake good. Some shortness breath. Some cough. November 10: Eating well. 10 L nasal cannula. Some shortness of breath. Recl ining in bed. November 11: Remains on 10 L nasal cannula. Short of breath. Eating well. In bed. Some cough. We will attempt to dropped FiO2. November 12: 8 L L nasal cannula. Oral intake fair. Has been in bed. Have the patient use incentive spirometry. Review of systems: Was done for constitutional, cardiovascular, GI, pulmonary. relevant finding as above Active Medications Acetaminophen (Acetaminophen Tab 500 Mg Tab) 1,000 mg PO Q6HR PRN PRN Reason: Fever>101 Albuterol Sulfate (Albuterol Hfa Inhaler) 2 puff INHALATION RT-Q6H PRN PRN Reason: Shortness Of Breath Or Wheezing Albuterol Sulfate (Albuterol Hfa Inhaler) 4 puff INHALATION Q4H [facility] Last Admin: 11/12/21 11:36 Dose: Not Given Documented by: Ascorbic Acid (Ascorbic Acid 500 Mg Tab) 500 mg PO BID [facility] Last Admin: 11/12/21 09:35 Dose: 500 mg Documented by: Atorvastatin Calcium (Atorvastatin 20 Mg Tab) 20 mg PO [facility] Last Admin: 11/11/21 21:06 Dose: 20 mg Documented by: Budesonide/Formoterol Fumarate (Symbicort 160-4.5 Mcg Inhaler) 2 puff INHALATION RT-BID@ [facility] Last Admin: 11/12/21 07:46 Dose: Not Given Documented by: Cholecalciferol (Cholecalciferol 125 Mcg (5000 Iu) Tablet) 125 mcg PO DAILY [facility] Last Admin: 11/12/21 09:35 Dose: 125 mcg Documented by: Clozapine (Clozapine 100 Mg Tab) 200 mg PO [facility] Stop: 11/14/21 23:00 Last Admin: 11/11/21 21:06 Dose: 200 mg Documented by: Dexamethasone (Dexamethasone 2 Mg Tab) 6 mg PO DAILY [facility] Last Admin: 11/12/21 09:35 Dose: 6 mg Documented by: Divalproex Sodium (Divalproex Er 500 Mg Tab.Er.24h) 1,500 mg PO [facility] Last Admin: 11/11/21 21:06 Dose: 1,500 mg Documented by: Enoxaparin Sodium (Enoxaparin 40 Mg/0.4 Ml Syringe) 40 mg SQ DAILY [facility] Last Admin: 11/12/21 09:35 Dose: 40 mg Documented by: Ergocalciferol (Ergocalciferol 1,250 Mcg (50,000 Iu) Capsule) 1,250 mcg PO FR@0800 [facility] Last Admin: 11/09/21 09:33 Dose: 1,250 mcg Documented by: Sodium Chloride (Saline 0.9%) 1,000 mls @ 10 mls/hr IV .Q24H [facility] Last Admin: 11/11/21 16:49 Dose: 10 mls/hr Documented by: Insulin Aspart (Insulin Aspart (Novolog) 100 Unit/Ml Vial) 0 unit SQ AC-TID [facility]; Protocol Last Admin: 11/12/21 13:06 Dose: 1 unit Documented by: Insulin Aspart (Insulin Aspart (Novolog) 100 Unit/Ml Vial) 3 unit SQ AC-TID [facility] Last Admin: 11/12/21 13:06 Dose: 3 unit Documented by: Insulin Detemir (Insulin Detemir (Levemir) 100 Unit/Ml Syr) 22 unit SQ HS [facility] Last Admin: 11/11/21 21:06 Dose: 22 unit Documented by: Lactic Acid (Ammonium Lactate 12% Cream 140 Gm Tube) 1 applic TOPICAL BID@0800,2100 [facility]; Protocol Last Admin: 11/12/21 09:36 Dose: 1 applic Documented by: Linagliptin (Linagliptin 5 Mg Tablet) 5 mg PO DAILY@0800 [facility] Last Admin: 11/12/21 09:35 Dose: 5 mg Documented by: Metformin HCl (Metformin 500 Mg Tab) 1,000 mg PO BID-W/MEALS [facility] Last Admin: 11/12/21 06:41 Dose: 1,000 mg Documented by: Naloxone HCl (Naloxone 0.4 Mg/Ml 1 Ml Vial) 0.2 mg IV Q2M PRN PRN Reason: Opioid Reversal Zinc Sulfate (Zinc Sulfate 220 Mg Cap) 220 mg PO DAILY [facility] Last Admin: 11/12/21 09:35 Dose: 220 mg Documented by: Past medical history to include: COPD, diabetes, hypertension, morbid obesity, home oxygen 2 L, schizophrenia, morbid obesity Social history: Assisted living.. Smokes at least a pack and a half a day since the age of 15. That is about 45 years. No alcohol. Family history: Patient cannot tell Physical examination: VITAL SIGNS: 97.5, 58, 20, 129/65, 92% on 8 L GENERAL: Reclining in bed , tired, shortness of breath LUNGS:Respiratory rate increased, PSYCH AO 3. Slightly anxious. NEUROLOGICAL: Cranial nerves grossly intact; no facial asymmetry, moving limbs Rest of the exam per pulmonary and nursing INVESTIGATIONS, reviewed in the clinical context: November 10: D-dimer 0.4 CRP 0.9 November 09: D-dimer 0.7 to CRP 2.2. Accu-Cheks November 08: D-dimer 0.64 CRP 3 October 12: White count 7.3 hemoglobin 11.1 platelets 212. Accu-Cheks November 06: Accu-Cheks noted. ABG from last night showed a pCO2 of 72 White count 6.4 hemoglobin 11.5 platelets 185 sodium 135 potassium 4.1 bicarb 35 creatinine 0.62 Lactic acid 2.2 CRP 3.6 procalcitonin 0.03 Coronavirus [PCR]: Detected Influenza type A/type B: Not detected EKG tracing personally reviewed by me-not a good quality EKG. Sinus rhythm. Nonspecific ST segment changes Chest x-ray film personally reviewed by me-bilateral lower zone infiltrates Assessment and plan: -Acute severe COVID 19 pneumonitis bilateral. In a non-vaccinate patient.: Slow to respond Vitamin C, vitamin D, zinc, dexamethasone. Subcu Lovenox -Acute severe hypoxic respiratory failure from COVID 19 pneumonitis: Slow to respond Currently on high flow 8 L oxygen -Chronic nicotine dependence, cigarette smoker Nicotine patch -Acute COPD exacerbation in a current smoker: Slow to respond Albuterol 4 puffs every 4 with spacer. Dexamethasone. -Acute delirium/metabolic encephalopathy from hypoxia: Resolved Follow clinically -Schizophrenia: Depakote ER, Clozaril -Hyperlipidemia Lipitor 20 mg daily at bedtime -Diabetes mellitus type 2 on oral hypoglycemic: Uncontrolled with hyperglycemia, from steroids Resume metformin.. Follow Accu-Cheks and sliding scale insulin. Increase Levemir 24 units subcu daily at bedtime. Add 3 units of Humalog with meals -Obesity BMI 39.[address] the [address] -Chronic hypoxic respiratory failure on 2 L nasal cannula from underlying COPD Dexamethasone. Subcu Lovenox. Increase Levemir to 24 units the patient use incentive spirometry.
[2021-11-12 16:32] LABS: Glucose,Whole Blood 263 mg/dL (75-99)
[2021-11-12] MEDS: SODIUM CHLORIDE 0.9% 1,000 ML IV SCH (17:01)
--- NOTE | 2021-11-12 18:11 | P.PN ---
Subjective Progress Note Date: 11/12/21 Principal diagnosis: Acute hypoxic respiratory failure secondary to COVID-19 pneumonia 11/10/2021, the patient is sleepy. I'm wondering whether this is resulting from her second troponin medication including the Clozaril that she stated on her milligrams at bedtime. She is spending most of the time in bed. She was weaned down to 8 L yesterday desaturated and she was placed back on 10 L about 2 by nasal cannula. She remains on Decadron 6 mg by mouth on a daily basis. She remains on Levemir insulin 18 units along with [facility] coverage and she is also on anticoagulation with Lovenox 40 mg subcu daily basis. The patient has a d-dimer of 0.7. CRP is at 3.2. No recent labs are available from today. Most recent blood sugar from today is at 180. The patient is arousable. No altered mentation. No confusion. No agitation. Denies having any worsening shortness of breath and she is resting comfortably in bed. Hardly using his incentive spirometer. She is encouraged further. Level of activity is minimal at this point in time. On 11/11/2021 patient seen in follow-up on selective care unit, she is awake, in no acute distress, she is on 10 L of oxygen pulse ox is 96%, she is intermittently lethargic, patient apparently refused BiPAP last night. She has been sleeping on today's exam, currently on Decadron 6 mg daily, she is on prophylactic dose Lovenox 40 mg daily, she is on multivitamins, she is on Ventolin and Symbicort. Does not appear to be in acute respiratory distress, but does appear to be lethargic. She is on home dose Clozaril 200 mg by mouth at bedtime Reevaluated today on 11/12/2021, patient is now on 8 L high flow nasal cannula, she seems to be doing fairly well, does not seem to be in any distress. She is not requiring BiPAP, she does not seem to be lethargic, patient remains on Decadron, remains on Lovenox at 40 mg subcu daily, d-dimer remains low at 0.47. Patient is on prophylactic Lovenox, she is also on Ventolin and Symbicort, does not seem to be in any distress. Objective - Vital Signs Vital signs: Vital Signs Temp 98.3 F 11/12/21 17:00 Pulse 65 11/12/21 17:00 Resp 20 11/12/21 17:00 BP 116/57 11/12/21 17:00 Pulse Ox 88 L 11/12/21 17:00 Intake & Output 11/11/21 11/12/21 11/12/21 18:59 06:59 18:59 Intake Total 620 570 660 Output Total 425 1275 1000 Balance 195 -705 -340 Weight 113.398 kg Intake: Intake, IV Titration 80 90 Amount Sodium Chloride 0.9% 1, 80 90 000 ml @ 10 mls/hr IV . Q24H [facility] Rx#:[id number] Oral 540 480 660 Output: Urine 425 1275 1000 Uretheral (Sena) 1275 Other: Voiding Method Indwelling Catheter Indwelling Catheter Indwelling Catheter - Exam Physical Exam: Revealed a 61-year-old female on 8 L high flow cannula in no distress. Head: Atraumatic, normocephalic. HEENT:[Neck is supple.] [No neck masses.] [No thyromegaly.] [No JVD.] Chest: Symmetrical chest expansion fine crackles at the bases.] Cardiac Exam: [Normal S1 and S2, no S3 gallop, no murmur.] Abdomen: [Soft, nontender, no megaly, no rebound, no guarding, normal bowel sounds.] Extremities: [No clubbing, no edema, no cyanosis.] Neurological Exam: ]No gross focal deficit. Musculoskeletal: No deformities noted limitation range of motion Skin: No rashes - Labs CBC & Chem 7: 11/07/21 06:59 11/05/21 08:58 Labs: Abnormal Lab Results - Last 24 Hours (Table) 11/11/21 11/12/21 11/12/21 Range/Units 20:35 06:23 11:53 POC Glucose (mg/dL) 186 H 150 H 143 H (75-99) mg/dL 11/12/21 Range/Units 16:30 POC Glucose (mg/dL) 263 H (75-99) mg/dL Assessment and Plan Assessment: Impression: Acute hypoxic respiratory failure secondary to COVID-19 pneumonia Acute COVID-19 pneumonia History of schizophrenia and cognitive impairment Type 2 diabetes Hypertension Dyslipidemia Morbid obesity with BMI of 39.2 History of underlying COPD. Recommendation: Continue oxygen and titrate accordingly Continue BiPAP as needed Continue Lovenox Continue Decadron Continue COVID-[address] cocktail [address] for CT angiogram considering the d-dimer is normal. We will continue to follow Consider discharge planning once her oxygen requirement is 5 L or less. Time with Patient: Less than 30
[2021-11-12 20:07] LABS: Glucose,Whole Blood 251 mg/dL (75-99)
[2021-11-12] MEDS: INSULIN DETEMIR (LEVEMIR) 100 UNIT/ML SYR SQ SCH (20:21)
[2021-11-12] MEDS: cloZAPine 100 MG TAB PO SCH (20:21)
[2021-11-12] MEDS: DIVALPROEX ER 500 MG TAB.ER.24H PO SCH (20:21)
[2021-11-12] MEDS: ATORVASTATIN 20 MG TAB PO SCH (20:21)
[2021-11-13] MEDS: ALBUTEROL HFA INHALER INHALATION SCH ×6 (00:14→20:36)
[2021-11-13 05:54] LABS: Glucose,Whole Blood 123 mg/dL (75-99)
[2021-11-13] MEDS: INSULIN ASPART (NovoLOG) 100 UNIT/ML VIAL SQ SCH ×6 (06:17→17:21)
[2021-11-13] MEDS: metFORMIN 500 MG TAB PO SCH ×2 (06:25→17:22)
[2021-11-13] MEDS: SYMBICORT 160-4.5 MCG INHALER INHALATION SCH ×2 (07:42→20:36)
[2021-11-13] MEDS: AMMONIUM LACTATE 12% CREAM 140 GM TUBE TOPICAL SCH ×2 (09:34→21:12)
[2021-11-13] MEDS: dexAMETHasone 2 MG TAB PO SCH (09:35)
[2021-11-13] MEDS: ASCORBIC ACID 500 MG TAB PO SCH ×2 (09:35→21:12)
[2021-11-13] MEDS: CHOLECALCIFEROL 125 MCG (5000 IU) TABLET PO SCH (09:35)
[2021-11-13] MEDS: LINAGLIPTIN 5 MG TABLET PO SCH (09:35)
[2021-11-13] MEDS: ENOXAPARIN 40 MG/0.4 ML SYRINGE SQ SCH (09:35)
[2021-11-13] MEDS: ZINC SULFATE 220 MG CAP PO SCH (09:35)
[2021-11-13 11:50] LABS: Glucose,Whole Blood 149 mg/dL (75-99)
--- NOTE | 2021-11-13 14:53 | P.PN ---
Subjective Progress Note Date: 11/13/21 Principal diagnosis: Acute hypoxic respiratory failure 11/10/2021, the patient is sleepy. I'm wondering whether this is resulting from her second troponin medication including the Clozaril that she stated on her milligrams at bedtime. She is spending most of the time in bed. She was weaned down to 8 L yesterday desaturated and she was placed back on 10 L about 2 by nasal cannula. She remains on Decadron 6 mg by mouth on a daily basis. She remains on Levemir insulin 18 units along with ascites care coverage and she is also on anticoagulation with Lovenox 40 mg subcu daily basis. The patient has a d-dimer of 0.7. CRP is at 3.2. No recent labs are available from today. Most recent blood sugar from today is at 180. The patient is arousable. No altered mentation. No confusion. No agitation. Denies having any worsening shortness of breath and she is resting comfortably in bed. Hardly using his incentive spirometer. She is encouraged further. Level of activity is minimal at this point in time. On 11/11/2021 patient seen in follow-up on selective care unit, she is awake, in no acute distress, she is on 10 L of oxygen pulse ox is 96%, she is intermitte ntly lethargic, patient apparently refused BiPAP last night. She has been sleeping on today's exam, currently on Decadron 6 mg daily, she is on prophylactic dose Lovenox 40 mg daily, she is on multivitamins, she is on Ventolin and Symbicort. Does not appear to be in acute respiratory distress, but does appear to be lethargic. She is on home dose Clozaril 200 mg by mouth at bedtime on 11/13/2021 patient seen in follow-up on medical surgical floor, she is sleeping comfortably in bed, in no acute distress, she states her breathing is fine. Denies any worsening dyspnea, apparently she's been refusing BiPAP every night, she is currently on 8 L of oxygen, and her pulse ox was 96%, we cut back to FiO2 down to 5 L, and initially she was maintaining her O2 saturations at 94% and breathing comfortably, subsequent recheck showed a pulse ox of 84%, and FiO2 will be increased back up to maintain O2 saturations of 88% and above. Denies any cough, denies any chest congestion, no wheezing, she's been afebrile she continues on Decadron. she continues on Symbicort . continues on prophylactic Lovenox, d-dimer is 0.47, CRP was improving and down to 0.9, today's blood work is still pending, she said otherwise no acute events overnight, Objective - Vital Signs Vital signs: Vital Signs Temp 98.6 F 11/13/21 12:30 Pulse 70 11/13/21 12:30 Resp 20 11/13/21 12:30 BP 115/57 11/13/21 12:30 Pulse Ox 84 L 11/13/21 12:30 Intake & Output 11/12/21 11/13/21 11/13/21 18:59 06:59 18:59 Intake Total 840 480 240 Output Total 1358 579 6230 Balance -160 -220 -1060 Weight 113.398 kg Intake: Oral 840 480 240 Output: Urine 1099 443 9337 Uretheral (Sena) 700 Stool 300 Other: Voiding Method Indwelling Catheter Indwelling Catheter Indwelling Catheter - Exam GENERAL EXAM: Lethargic, oriented times 3, 61 y.o. morbidly obese female comfortable in no apparent distress.currently on 8 L of oxygen pulse ox is 96% HEAD: Normocephalic/atraumatic. EYES: Normal reaction of pupils, equal size. Conjunctiva pink, sclera white. NOSE: Clear with pink turbinates. THROAT: No erythema or exudates. NECK: No masses, no JVD, no thyroid enlargement, no adenopathy. CHEST: No chest wall deformity. Symmetrical expansion. LUNGS: Equal air entry with few scattered crackles CVS: Regular rate and rhythm, normal S1 and S2, no gallops, no murmurs, no rubs ABDOMEN: Soft, nontender. No hepatosplenomegaly, normal bowel sounds, no guarding or rigidity. EXTREMITIES: No clubbing, no edema, no cyanosis, 2+ pulses and upper and lower extremities. MUSCULOSKELETAL: Muscle strength and tone normal. SPINE: No scoliosis or deformity SKIN: No rashes CENTRAL NERVOUS SYSTEM: Alert and oriented -3. No focal deficits, tone is normal in all 4 extremities. PSYCHIATRIC: Alert and oriented -3. Appropriate affect. Intact judgment and insight. - Labs CBC & Chem 7: 11/07/21 06:59 11/05/21 08:58 Labs: Abnormal Lab Results - Last 24 Hours (Table) 11/12/21 11/12/21 11/13/21 Range/Units 16:30 20:05 05:53 POC Glucose (mg/dL) 263 H 251 H 123 H (75-99) mg/dL 11/13/21 Range/Units 11:49 POC Glucose (mg/dL) 149 H (75-99) mg/dL Assessment and Plan Plan: Assessment: #1. Acute hypoxic respiratory failure. The patient presents emergency with altered mentation and the patient was quite hypoxic and the patient was found to have a COVID 19 related pneumonia with bilateral pulmonary infiltrates left more than right. The patient is currently on 8 liters of oxygen by nasal cannula. Condition is stable and off as is being gradually weaned off. #2. Acute COVID 19 related pneumonia #3. Mild lactic acidosis #4. Mild elevation of the inflammatory markers secondary to above #5. History of schizophrenia with significant impairment in her functionality due to mental health #6. Altered mentation secondary to schizophrenia and possibly further complimented by development of hypoxemia, but admission. Neurologic exam is nonfocal #7. Diabetes mellitus #8. Hypertension #9. Hyperlipidemia #10. Morbid obesity with a BMI of 39.2 #11. Chronic lower extremity edema bilaterally #12. COPD Plan: Vital signs have been stable Continue weaning FiO2 to keep O2 sats patient is currently down to 8 L, continue weaning FiO2 to keep O2 sats patient's at 88% and above Patient has been refusing BiPAP support, Otherwise clinically remains stable Continue Decadron and Lovenox Continue multivitamins May consider for Discharge if maintains stable o2 sats on 5 l/min and less I performed a history & physical examination of the patient and discussed their management with my nurse practitioner, Evelia Bernabe. I reviewed the nurse practitioner's note and agree with the documented findings and plan of care. Lung sounds are positive for diffuse wheezes throughout the lung nixon. The findings and the impression was discussed with the patient. I attest to the documentation by the nurse practitioner. Time with Patient: Less than 30
[2021-11-13 17:02] LABS: Glucose,Whole Blood 195 mg/dL (75-99)
--- NOTE | 2021-11-13 18:27 | P.PN ---
Progress Note - Text Progress Note Date: 11/13/21 Chief Complaint: Short of breath History of presenting complaint This is a 61-year-old patient, follows with Dr. West from visiting physicians. Chronic stable medical conditions include diabetes, hypertension, schizophrenia, morbid obesity, smoker. She was sent in from the assisted living. Patient's found to be confused different from baseline. She was found to have a pulse ox appears to be in the 50s. Patient be short of breath and tired. I saw the patient in the ER. Patient somewhat delirious. Initially he was supplied 6 L of nasal cannula. He did black pickler to 100%. Unable to obtain any detailed history from the patient. Patient is a cough. She did have some fever. Nurse informed me that patient did not take the COVID-19 vaccine. And patient did positive for COVID-19 in the ER. Patient on 15 L high flow oxygen. Admitted with acute COVID-19 bilateral pneumonitis, acute hypoxic respiratory failure, acute delirium/encephalopathy from hypoxia, acute COPD exacerbation. Place and IV fluids, high flow nasal cannula. Dexamethasone. Symbicort, [place]. Subcu Lovenox. November 06: More awake today. Hungry. Eating. On 13 L of high flow nasal cannula. Answering questions bit more appropriately. Short of breath. Tired. November 07: Patient's had a full lunch. Still very hungry. Watching television. Short of breath. On 15 L nasal cannula. Answering questions. Awake.. November 08: Eating well. FiO2 down to 10 L. Breathing a bit better. Less short of breath. November 09: Remains on 10 L of oxygen. Oral intake good. Some shortness breath. Some cough. October 15: Eating well. 10 L nasal cannula. Some shortness of breath. Recl ining in bed. November 11: Remains on 10 L nasal cannula. Short of breath. Eating well. In bed. Some cough. We will attempt to dropped FiO2. November 12: 8 L L nasal cannula. Oral intake fair. Has been in bed. Have the patient use incentive spirometry. November 13: Remains on 8 L nasal cannula. Pulse ox code. We will have decreased the FiO2. Oral intake remains good. Has been in bed. Review of systems: Was done for constitutional, cardiovascular, GI, pulmonary. relevant finding as above Active Medications Acetaminophen (Acetaminophen Tab 500 Mg Tab) 1,000 mg PO Q6HR PRN PRN Reason: Fever>101 Albuterol Sulfate (Albuterol Hfa Inhaler) 2 puff INHALATION RT-Q6H PRN PRN Reason: Shortness Of Breath Or Wheezing Albuterol Sulfate (Albuterol Hfa Inhaler) 4 puff INHALATION Q4H [facility] Last Admin: 11/13/21 17:41 Dose: Not Given Documented by: Ascorbic Acid (Ascorbic Acid 500 Mg Tab) 500 mg PO BID [facility] Last Admin: 11/13/21 09:35 Dose: 500 mg Documented by: Atorvastatin Calcium (Atorvastatin 20 Mg Tab) 20 mg PO [facility] Last Admin: 11/12/21 20:21 Dose: 20 mg Documented by: Budesonide/Formoterol Fumarate (Symbicort 160-4.5 Mcg Inhaler) 2 puff INH ALATION RT-BID@08 [facility] Last Admin: 11/13/21 07:42 Dose: 2 puff Documented by: Cholecalciferol (Cholecalciferol 125 Mcg (5000 Iu) Tablet) 125 mcg PO DAILY [facility] Last Admin: 11/13/21 09:35 Dose: 125 mcg Documented by: Clozapine (Clozapine 100 Mg Tab) 200 mg PO [facility] Stop: 11/14/21 23:00 Last Admin: 11/12/21 20:21 Dose: 200 mg Documented by: Dexamethasone (Dexamethasone 2 Mg Tab) 6 mg PO DAILY [facility] Last Admin: 11/13/21 09:35 Dose: 6 mg Documented by: Divalproex Sodium (Divalproex Er 500 Mg Tab.Er.24h) 1,500 mg PO [facility] Last Admin: 11/12/21 20:21 Dose: 1,500 mg Documented by: Enoxaparin Sodium (Enoxaparin 40 Mg/0.4 Ml Syringe) 40 mg SQ DAILY [facility] Last Admin: 11/13/21 09:35 Dose: 40 mg Documented by: Ergocalciferol (Ergocalciferol 1,250 Mcg (50,000 Iu) Capsule) 1,250 mcg PO FR@0800 [facility] Last Admin: 11/09/21 09:33 Dose: 1,250 mcg Documented by: Sodium Chloride (Saline 0.9%) 1,000 mls @ 10 mls/hr IV .Q24H [facility] Last Admin: 11/12/21 17:01 Dose: Not Given Documented by: Insulin Aspart (Insulin Aspart (Novolog) 100 Unit/Ml Vial) 0 unit SQ AC-TID [facility]; Protocol Last Admin: 11/13/21 17:21 Dose: 5 unit Documented by: Insulin Aspart (Insulin Aspart (Novolog) 100 Unit/Ml Vial) 3 unit SQ AC-TID [facility] Last Admin: 11/13/21 17:21 Dose: 3 unit Documented by: Insulin Detemir (Insulin Detemir (Levemir) 100 Unit/Ml Syr) 24 unit SQ HS [facility] Last Admin: 11/12/21 20:21 Dose: 24 unit Documented by: Lactic Acid (Ammonium Lactate 12% Cream 140 Gm Tube) 1 applic TOPICAL BID@0800,2100 [facility]; Protocol Last Admin: 11/13/21 09:34 Dose: 1 applic Documented by: Linagliptin (Linagliptin 5 Mg Tablet) 5 mg PO DAILY@0800 [facility] Last Admin: 11/13/21 09:35 Dose: 5 mg Documented by: Metformin HCl (Metformin 500 Mg Tab) 1,000 mg PO BID-W/MEALS [facility] Last Admin: 11/13/21 17:22 Dose: 1,000 mg Documented by: Naloxone HCl (Naloxone 0.4 Mg/Ml 1 Ml Vial) 0.2 mg IV Q2M PRN PRN Reason: Opioid Reversal Zinc Sulfate (Zinc Sulfate 220 Mg Cap) 220 mg PO DAILY [facility] Last Admin: 11/13/21 09:35 Dose: 220 mg Documented by: Past medical history to include: COPD, diabetes, hypertension, morbid obesity, home oxygen 2 L, schizophrenia, morbid obesity Social history: Assisted living.. Smokes at least a pack and a half a day since the age of 15. That is about 45 years. No alcohol. Family history: Patient cannot tell Physical examination: VITAL SIGNS: 98.2, 67, 18, 114/75, 96% on 8 L GENERAL: Reclining in bed , tired, shortness of breath LUNGS:Respiratory rate increased, PSYCH AO 3. Slightly anxious. NEUROLOGICAL: Cranial nerves grossly intact; no facial asymmetry, moving limbs Rest of the exam per pulmonary and nursing INVESTIGATIONS, reviewed in the clinical context: November 10: D-dimer 0.4 CRP 0.9 November 09: D-dimer 0.7 to CRP 2.2. Accu-Cheks 222 November 08: D-dimer 0.64 CRP 3 November 07: White count 7.3 hemoglobin 11.1 platelets 212. Accu-Cheks 223 November 06: Accu-Cheks noted. ABG from last night showed a pCO2 of 72 White count 6.4 hemoglobin 11.5 platelets 185 sodium 135 potassium 4.1 bicarb 35 creatinine 0.62 Lactic acid 2.2 CRP 3.6 procalcitonin 0.03 Coronavirus [PCR]: Detected Influenza type A/type B: Not detected EKG tracing personally reviewed by me-not a good quality EKG. Sinus rhythm. Nonspecific ST segment changes Chest x-ray film personally reviewed by me-bilateral lower zone infiltrates Assessment and plan: -Acute severe COVID 19 pneumonitis bilateral. In a non-vaccinate patient.: Slow to respond Vitamin C, vitamin D, zinc, dexamethasone. Subcu Lovenox -Acute severe hypoxic respiratory failure from COVID 19 pneumonitis: Slow to respond Currently on high flow 8 L oxygen -Chronic nicotine dependence, cigarette smoker Nicotine patch -Acute COPD exacerbation in a current smoker: Slow to respond Albuterol 4 puffs every 4 with spacer. Dexamethasone. -Acute delirium/metabolic encephalopathy from hypoxia: Resolved Follow clinically -Schizophrenia: Depakote ER, Clozaril -Hyperlipidemia Lipitor 20 mg daily at bedtime -Diabetes mellitus type 2 on oral hypoglycemic: Uncontrolled with hyperglycemia, from steroids Resume metformin.. Follow Accu-Cheks and sliding scale insulin. Levemir 24 units subcu daily at bedtime. Increase 4 units of Humalog with meals -Obesity BMI 39.2 [address] loss measures [address] the road -Chronic hypoxic respiratory failure on 2 L nasal cannula from underlying COPD Dexamethasone. Subcu Lovenox. Decrease FiO2. Increase Humalog to 4 units with meals
[2021-11-13 20:25] LABS: Glucose,Whole Blood 240 mg/dL (75-99)
[2021-11-13] MEDS: SODIUM CHLORIDE 0.9% 1,000 ML IV SCH (21:12)
[2021-11-13] MEDS: ATORVASTATIN 20 MG TAB PO SCH (21:12)
[2021-11-13] MEDS: INSULIN DETEMIR (LEVEMIR) 100 UNIT/ML SYR SQ SCH (21:12)
[2021-11-13] MEDS: cloZAPine 100 MG TAB PO SCH (21:12)
[2021-11-13] MEDS: DIVALPROEX ER 500 MG TAB.ER.24H PO SCH (21:12)
[2021-11-14] MEDS: ALBUTEROL HFA INHALER INHALATION SCH ×7 (00:21→23:53)
[2021-11-14 06:14] LABS: Glucose,Whole Blood 128 mg/dL (75-99)
[2021-11-14] MEDS: INSULIN ASPART (NovoLOG) 100 UNIT/ML VIAL SQ SCH ×6 (06:20→17:02)
[2021-11-14] MEDS: metFORMIN 500 MG TAB PO SCH ×2 (06:42→17:01)
[2021-11-14 08:29] LABS: Basophils % (A) 0 %; Eosinophils % (A) 0 %; HCT 37.2 % (34.0-46.0); HGB 11.8 gm/dL (11.4-16.0); Hypochromasia Slight; Lymphocytes # (A) 2.2 k/uL (1.0-4.8); Lymphocytes % (A) 27 %; MCH 29.9 pg (25.0-35.0); MCHC 31.6 g/dL (31.0-37.0); MCV 94.6 fL (80.0-100.0); Mean Platelet Volume 8.1; Monocytes # (A) 0.5 k/uL (0-1.0); Monocytes % (A) 6 %; Neutrophils # (A) 5.5 k/uL (1.3-7.7); Neutrophils % (A) 65 %; Platelet Count 387 k/uL (150-450); RBC 3.93 m/uL (3.80-5.40); RDW 15.6 % (11.5-15.5); WBC 8.4 k/uL (3.8-10.6)
--- NOTE | 2021-11-14 08:32 | XR ---
EXAMINATION TYPE: XR chest 1V portable DATE OF EXAM: 11/14/2021 COMPARISON: Chest x-ray 11/10/2021, chest CT 02/26/2020 HISTORY: Covid positive, abnormal chest x-ray TECHNIQUE: Single frontal view of the chest is obtained. FINDINGS: Perihilar increased attenuation, patchy basilar density is again seen. Cardiac mediastinal silhouette is stable. No evident pneumothorax or sizable effusion. Interstitium appears prominently. Patient is rotated. There are overlying artifacts. IMPRESSION: Correlate for pneumonia versus atelectasis, difficult to exclude minimal effusion. There is underlying emphysema.
[2021-11-14 08:42] LABS: ALT 12 U/L (4-34); AST 13 U/L (14-36); African American GFR (CKD) >90 (>60 ml/min/1.73 sqM); Albumin 3.1 g/dL (3.5-5.0); Alkaline Phosphatase 48 U/L (38-126); Anion Gap 2 mmol/L; Blood Urea Nitrogen 22 mg/dL (7-17); Calcium 9.1 mg/dL (8.4-10.2); Carbon Dioxide 35 mmol/L (22-30); Chloride 100 mmol/L (98-107); Glucose 118 mg/dL (74-99); LDH 472 U/L (313-618); Non-African American GFR(CKD) >90 (>60 ml/min/1.73 sqM); Potassium 4.6 mmol/L (3.5-5.1); Sodium 137 mmol/L (137-145); Total Bilirubin 0.6 mg/dL (0.2-1.3); Total Protein 5.5 g/dL (6.3-8.2)
[2021-11-14] MEDS: ENOXAPARIN 40 MG/0.4 ML SYRINGE SQ SCH (08:46)
[2021-11-14] MEDS: LINAGLIPTIN 5 MG TABLET PO SCH (08:47)
[2021-11-14] MEDS: CHOLECALCIFEROL 125 MCG (5000 IU) TABLET PO SCH (08:47)
[2021-11-14] MEDS: ZINC SULFATE 220 MG CAP PO SCH (08:47)
[2021-11-14] MEDS: dexAMETHasone 2 MG TAB PO SCH (08:47)
[2021-11-14] MEDS: ASCORBIC ACID 500 MG TAB PO SCH ×2 (08:47→22:38)
[2021-11-14] MEDS: AMMONIUM LACTATE 12% CREAM 140 GM TUBE TOPICAL SCH ×2 (08:48→22:46)
[2021-11-14 10:48] LABS: C Reactive Protein <0.5 mg/dL (<1.0)
[2021-11-14 11:59] LABS: Glucose,Whole Blood 137 mg/dL (75-99)
[2021-11-14] MEDS: SYMBICORT 160-4.5 MCG INHALER INHALATION SCH ×2 (12:24→21:06)
[2021-11-14] MEDS: SODIUM CHLORIDE 0.9% 1,000 ML IV SCH (14:55)
[2021-11-14 16:45] LABS: Glucose,Whole Blood 181 mg/dL (75-99)
--- NOTE | 2021-11-14 18:28 | P.PN ---
Subjective Progress Note Date: 11/14/21 Principal diagnosis: Acute hypoxic respiratory failure 11/10/2021, the patient is sleepy. I'm wondering whether this is resulting from her second troponin medication including the Clozaril that she stated on her milligrams at bedtime. She is spending most of the time in bed. She was weaned down to 8 L yesterday desaturated and she was placed back on 10 L about 2 by nasal cannula. She remains on Decadron 6 mg by mouth on a daily basis. She remains on Levemir insulin 18 units along with ascites care coverage and she is also on anticoagulation with Lovenox 40 mg subcu daily basis. The patient has a d-dimer of 0.7. CRP is at 3.2. No recent labs are available from today. Most recent blood sugar from today is at 180. The patient is arousable. No altered mentation. No confusion. No agitation. Denies having any worsening shortness of breath and she is resting comfortably in bed. Hardly using his incentive spirometer. She is encouraged further. Level of activity is minimal at this point in time. On 11/11/2021 patient seen in follow-up on selective care unit, she is awake, in no acute distress, she is on 10 L of oxygen pulse ox is 96%, she is intermitte ntly lethargic, patient apparently refused BiPAP last night. She has been sleeping on today's exam, currently on Decadron 6 mg daily, she is on prophylactic dose Lovenox 40 mg daily, she is on multivitamins, she is on Ventolin and Symbicort. Does not appear to be in acute respiratory distress, but does appear to be lethargic. She is on home dose Clozaril 200 mg by mouth at bedtime on 11/13/2021 patient seen in follow-up on medical surgical floor, she is sleeping comfortably in bed, in no acute distress, she states her breathing is fine. Denies any worsening dyspnea, apparently she's been refusing BiPAP every night, she is currently on 8 L of oxygen, and her pulse ox was 96%, we cut back to FiO2 down to 5 L, and initially she was maintaining her O2 saturations at 94% and breathing comfortably, subsequent recheck showed a pulse ox of 84%, and FiO2 will be increased back up to maintain O2 saturations of 88% and above. Denies any cough, denies any chest congestion, no wheezing, she's been afebrile she continues on Decadron. she continues on Symbicort . continues on prophylactic Lovenox, d-dimer is 0.47, CRP was improving and down to 0.9, today's blood work is still pending, she said otherwise no acute events overnight on 11/14/2021 patient seen in follow-up on selective care unit, she is resting comfortably in the chair, in no acute distress, she is currently down to 5 L of oxygen her pulse ox is 95%, her FiO2 was subsequent cut back to 4 L, she continues to breathe very comfortably, no worsening dyspnea or cough, she remains on Symbicort and Ventolin, today's labs have been reviewed, her d-dimer noted to be increased at 2.3, we'll obtain lower extremity Dopplers, and possibly CTA chest. otherwise clinically she seems to be improving and discharge planning is in progress for discharge to ECF likely in the next 24 hours Objective - Vital Signs Vital signs: Vital Signs Temp 97.9 F 11/14/21 16:00 Pulse 58 L 11/14/21 16:00 Resp 16 11/14/21 16:00 BP 109/57 11/14/21 16:00 Pulse Ox 91 L 11/14/21 16:00 Intake & Output 11/13/21 11/14/21 11/14/21 18:59 06:59 18:59 Intake Total 1380 340 Output Total 2200 750 650 Balance -820 -410 -650 Intake: Oral 1380 340 Output: Urine 1900 750 650 Stool 300 Other: Voiding Method Indwelling Catheter Indwelling Catheter Indwelling Catheter - Exam GENERAL EXAM: Lethargic, oriented times 3, 61 y.o. morbidly obese female comfortable in no apparent distress.currently on 5 L of oxygen pulse ox is 97% HEAD: Normocephalic/atraumatic. EYES: Normal reaction of pupils, equal size. Conjunctiva pink, sclera white. NOSE: Clear with pink turbinates. THROAT: No erythema or exudates. NECK: No masses, no JVD, no thyroid enlargement, no adenopathy. CHEST: No chest wall deformity. Symmetrical expansion. LUNGS: Equal air entry with few scattered crackles CVS: Regular rate and rhythm, normal S1 and S2, no gallops, no murmurs, no rubs ABDOMEN: Soft, nontender. No hepatosplenomegaly, normal bowel sounds, no guarding or rigidity. EXTREMITIES: No clubbing, no edema, no cyanosis, 2+ pulses and upper and lower extremities. MUSCULOSKELETAL: Muscle strength and tone normal. SPINE: No scoliosis or deformity SKIN: No rashes CENTRAL NERVOUS SYSTEM: Alert and oriented -3. No focal deficits, tone is normal in all 4 extremities. PSYCHIATRIC: Alert and oriented -3. Appropriate affect. Intact judgment and insight. - Labs CBC & Chem 7: 11/14/21 06:47 11/14/21 06:47 Labs: Abnormal Lab Results - Last 24 Hours (Table) 11/13/21 11/14/21 11/14/21 Range/Units 20:24 06:09 06:47 RDW 15.6 H (11.5-15.5) % D-Dimer (<0.60) mg/L FEU Carbon Dioxide (22-30) mmol/L BUN (7-17) mg/dL Glucose (74-99) mg/dL POC Glucose (mg/dL) 240 H 128 H (75-99) mg/dL AST (14-36) U/L Total Protein (6.3-8.2) g/dL Albumin (3.5-5.0) g/dL 11/14/21 11/14/21 11/14/21 Range/Units 06:47 06:47 11:57 RDW (11.5-15.5) % D-Dimer 2.30 H (<0.60) mg/L FEU Carbon Dioxide 35 H (22-30) mmol/L BUN 22 H (7-17) mg/dL Glucose 118 H (74-99) mg/dL POC Glucose (mg/dL) 137 H (75-99) mg/dL AST 13 L (14-36) U/L Total Protein 5.5 L (6.3-8.2) g/dL Albumin 3.1 L (3.5-5.0) g/dL 11/14/21 Range/Units 16:39 RDW (11.5-15.5) % D-Dimer (<0.60) mg/L FEU Carbon Dioxide (22-30) mmol/L BUN (7-17) mg/dL Glucose (74-99) mg/dL POC Glucose (mg/dL) 181 H (75-99) mg/dL AST (14-36) U/L Total Protein (6.3-8.2) g/dL Albumin (3.5-5.0) g/dL Assessment and Plan Plan: Assessment: #1. Acute hypoxic respiratory failure. The patient presents emergency with altered mentation and the patient was quite hypoxic and the patient was found to have a COVID 19 related pneumonia with bilateral pulmonary infiltrates left more than right. The patient is currently on 5 liters of oxygen by nasal cannula. Condition is stable and off as is being gradually weaned off. #2. Acute COVID 19 related pneumonia #3. Mild lactic acidosis #4. Mild elevation of the inflammatory markers secondary to above #5. History of schizophrenia with significant impairment in her functionality due to mental health #6. Altered mentation secondary to schizophrenia and possibly further complimented by development of hypoxemia, but admission. Neurologic exam is nonfocal #7. Diabetes mellitus #8. Hypertension #9. Hyperlipidemia #10. Morbid obesity with a BMI of 39.2 #11. Chronic lower extremity edema bilaterally #12. COPD #13. Elevated d-dimer, rule out possibility of DVT and PE, we will obtain lower extremity Dopplers and CT angiogram of the chest tonight Plan: Vital signs have been stable patient is currently down to 5 L, breathing comfortably Patient has been refusing BiPAP support, Otherwise clinically remains stable Continue Decadron and Lovenox Continue multivitamins obtain lower extremity dopplers and CTA chest to rule out DVT and PE May consider for Discharge if maintains stable o2 sats on 5 l/min and less I performed a history & physical examination of the patient and discussed their management with my nurse practitioner, Evelia Bernabe. I reviewed the nurse practitioner's note and agree with the documented findings and plan of care. Lung sounds are positive for diffuse wheezes throughout the lung nixon. The findings and the impression was discussed with the patient. I attest to the documentation by the nurse practitioner. Time with Patient: Less than 30
--- NOTE | 2021-11-14 19:49 | US ---
EXAMINATION TYPE: US venous doppler duplex LE DATE OF EXAM: 11/14/2021 7:33 PM COMPARISON: NONE CLINICAL HISTORY: elevated d-dimer. Elevated D Dimer. SIDE PERFORMED: Bilateral TECHNIQUE: The lower extremity deep venous system is examined utilizing real time linear array sonog casandra with graded compression, doppler sonography and color-flow sonography. VESSELS IMAGED: Common Femoral Vein Deep Femoral Vein Greater Saphenous Vein * Femoral Vein Popliteal Vein Small Saphenous Vein * Proximal Calf Veins (* superficial vessels) Limited due to body habitus. Right Leg: No evidence of DVT in veins imaged at this time. Left Leg: No evidence of DVT in veins imaged at this time. IMPRESSION: No sign of deep vein thrombosis in both legs.
--- NOTE | 2021-11-14 20:14 | P.PN ---
Progress Note - Text Progress Note Date: 11/14/21 Chief Complaint: Short of breath History of presenting complaint This is a 61-year-old patient, follows with Dr. West from visiting physicians. Chronic stable medical conditions include diabetes, hypertension, schizophrenia, morbid obesity, smoker. She was sent in from the assisted living. Patient's found to be confused different from baseline. She was found to have a pulse ox appears to be in the 50s. Patient be short of breath and tired. I saw the patient in the ER. Patient somewhat delirious. Initially he was supplied 6 L of nasal cannula. 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 Unable to obtain any detailed history from the patient. Patient is a cough. She did have some fever. Nurse informed me that patient did not take the COVID-19 vaccine. And patient did positive for COVID-19 in the ER. Patient on 15 L high flow oxygen. Admitted with acute COVID-19 bilateral pneumonitis, acute hypoxic respiratory failure, acute delirium/encephalopathy from hypoxia, acute COPD exacerbation. Place and IV fluids, high flow nasal cannula. Dexamethasone. Symbicort, Chapo tolin. Subcu Lovenox. November 06: More awake today. Hungry. Eating. On 13 L of high flow nasal cannula. Answering questions bit more appropriately. Short of breath. Tired. November 07: Patient's had a full lunch. Still very hungry. Watching television. Short of breath. On 15 L nasal cannula. Answering questions. Awake.. November 08: Eating well. FiO2 down to 10 L. Breathing a bit better. Less short of breath. November 09: Remains on 10 L of oxygen. Oral intake good. Some shortness breath. Some cough. October 15: Eating well. 10 L nasal cannula. Some shortness of breath. Recl ining in bed. November 11: Remains on 10 L nasal cannula. Short of breath. Eating well. In bed. Some cough. We will attempt to dropped FiO2. November 12: 8 L L nasal cannula. Oral intake fair. Has been in bed. Have the patient use incentive spirometry. November 13: Remains on 8 L nasal cannula. Pulse ox code. We will have decreased the FiO2. Oral intake remains good. Has been in bed. November 14: Reclining in bed. FiO2 decreased to 4 L. Oral intake good. Discussed with the patient. Encourage incentive spirometry. Review of systems: Was done for constitutional, cardiovascular, GI, pulmonary. relevant finding as above Active Medications Acetaminophen (Acetaminophen Tab 500 Mg Tab) 1,000 mg PO Q6HR PRN PRN Reason: Fever>101 Albuterol Sulfate (Albuterol Hfa Inhaler) 2 puff INHALATION RT-Q6H PRN PRN Reason: Shortness Of Breath Or Wheezing Albuterol Sulfate (Albuterol Hfa Inhaler) 4 puff INHALATION Q4H [facility] Last Admin: 11/14/21 16:58 Dose: 4 puff Documented by: Ascorbic Acid (Ascorbic Acid 500 Mg Tab) 500 mg PO BID [facility] Last Admin: 11/14/21 08:47 Dose: 500 mg Documented by: Atorvastatin Calcium (Atorvastatin 20 Mg Tab) 20 mg PO [facility] Last Admin: 11/13/21 21:12 Dose: 20 mg Documented by: Budesonide/Formoterol Fumarate (Symbicort 160-4.5 Mcg Inhaler) 2 puff INHALATION RT-BID@ [facility] Last Admin: 11/14/21 12:24 Dose: Not Given Documented by: Cholecalciferol (Cholecalciferol 125 Mcg (5000 Iu) Tablet) 125 mcg PO DAILY [facility] Last Admin: 11/14/21 08:47 Dose: 125 mcg Documented by: Clozapine (Clozapine 100 Mg Tab) 200 mg PO [facility] Stop: 11/21/21 23:00 Last Admin: 11/13/21 21:12 Dose: 200 mg Documented by: Dexamethasone (Dexamethasone 2 Mg Tab) 6 mg PO DAILY [facility] Last Admin: 11/14/21 08:47 Dose: 6 mg Documented by: Divalproex Sodium (Divalproex Er 500 Mg Tab.Er.24h) 1,500 mg PO [facility] Last Admin: 11/13/21 21:12 Dose: 1,500 mg Documented by: Enoxaparin Sodium (Enoxaparin 40 Mg/0.4 Ml Syringe) 40 mg SQ DAILY [facility] Last Admin: 11/14/21 08:46 Dose: 40 mg Documented by: Ergocalciferol (Ergocalciferol 1,250 Mcg (50,000 Iu) Capsule) 1,250 mcg PO FR@0800 [facility] Last Admin: 11/09/21 09:33 Dose: 1,250 mcg Documented by: Sodium Chloride (Saline 0.9%) 1,000 mls @ 10 mls/hr IV .Q24H [facility] Last Admin: 11/14/21 14:55 Dose: Not Given Documented by: Insulin Aspart (Insulin Aspart (Novolog) 100 Unit/Ml Vial) 0 unit SQ AC-TID [facility]; Protocol Last Admin: 11/14/21 17:02 Dose: 4 unit Documented by: Insulin Aspart (Insulin Aspart (Novolog) 100 Unit/Ml Vial) 4 unit SQ AC-TID [facility] Last Admin: 11/14/21 17:02 Dose: 4 unit Documented by: Insulin Detemir (Insulin Detemir (Levemir) 100 Unit/Ml Syr) 24 unit SQ HS [facility] Last Admin: 11/13/21 21:12 Dose: 24 unit Documented by: Lactic Acid (Ammonium Lactate 12% Cream 140 Gm Tube) 1 applic TOPICAL BID@0800,2100 [facility]; Protocol Last Admin: 11/14/21 08:48 Dose: 1 applic Documented by: Linagliptin (Linagliptin 5 Mg Tablet) 5 mg PO DAILY@0800 [facility] Last Admin: 11/14/21 08:47 Dose: 5 mg Documented by: Metformin HCl (Metformin 500 Mg Tab) 1,000 mg PO BID-W/MEALS [facility] Last Admin: 11/14/21 17:01 Dose: 1,000 mg Documented by: Naloxone HCl (Naloxone 0.4 Mg/Ml 1 Ml Vial) 0.2 mg IV Q2M PRN PRN Reason: Opioid Reversal Zinc Sulfate (Zinc Sulfate 220 Mg Cap) 220 mg PO DAILY [facility] Last Admin: 11/14/21 08:47 Dose: 220 mg Documented by: Past medical history to include: COPD, diabetes, hypertension, morbid obesity, home oxygen 2 L, schizophrenia, morbid obesity Social history: Assisted living.. Smokes at least a pack and a half a day since the age of 15. That is about 45 years. No alcohol. Family history: Patient cannot tell Physical examination: VITAL SIGNS: 97.6, 58, 16, 121/67, 94% on 4 L GENERAL: Reclining in bed , , shortness of breath LUNGS:Respiratory rate increased, PSYCH AO 3. Slightly anxious. NEUROLOGICAL: Cranial nerves grossly intact; no facial asymmetry, moving limbs Rest of the exam per pulmonary and nursing INVESTIGATIONS, reviewed in the clinical context: November 01: White count 8.4 hemoglobin 11.8 d-dimer 2.3 potassium 4.6 creatinine 0.55 November 10: D-dimer 0.4 CRP 0.9 November 09: D-dimer 0.7 to CRP 2.2. Accu-Cheks November 08: D-dimer 0.64 CRP 3 November 07: White count 7.3 hemoglobin 11.1 platelets 212. Accu-Cheks November 06: Accu-Cheks noted. ABG from last night showed a pCO2 of 72 White count 6.4 hemoglobin 11.5 platelets 185 sodium 135 potassium 4.1 bicarb 35 creatinine 0.62 Lactic acid 2.2 CRP 3.6 procalcitonin 0.03 Coronavirus [PCR]: Detected Influenza type A/type B: Not detected EKG tracing personally reviewed by me-not a good quality EKG. Sinus rhythm. Nonspecific ST segment changes Chest x-ray film personally reviewed by me-bilateral lower zone infiltrates Assessment and plan: -Acute severe COVID 19 pneumonitis bilateral. In a non-vaccinate patient.: Improving Vitamin C, vitamin D, zinc, dexamethasone. Subcu Lovenox -Acute severe hypoxic respiratory failure from COVID 19 pneumonitis: Improving slowly Currently on 4 L oxygen -Chronic nicotine dependence, cigarette smoker Nicotine patch -Acute COPD exacerbation in a current smoker: Slow to respond Albuterol 4 puffs every 4 with spacer. Dexamethasone. -Acute delirium/metabolic encephalopathy from hypoxia: Resolved Follow clinically -Schizophrenia: Depakote ER, Clozaril -Hyperlipidemia Lipitor 20 mg daily at bedtime -Diabetes mellitus type 2 on oral hypoglycemic: Uncontrolled with hyperglycemia, from steroids Resume metformin.. Follow Accu-Cheks and sliding scale insulin. Levemir 24 units subcu daily at bedtime. Increase 4 units of Humalog with meals -Obesity BMI 39.[address] measures [address] the [address] -Chronic hypoxic respiratory failure on 2 L nasal cannula from underlying COPD Dexamethasone. Subcu Lovenox. Decrease FiO2. Hopefully discharge in next 24- 48 hours.
[2021-11-14 20:48] LABS: Glucose,Whole Blood 126 mg/dL (75-99)
[2021-11-14] MEDS: DIVALPROEX ER 500 MG TAB.ER.24H PO SCH (22:37)
[2021-11-14] MEDS: ATORVASTATIN 20 MG TAB PO SCH (22:38)
[2021-11-14] MEDS: cloZAPine 100 MG TAB PO SCH (22:38)
[2021-11-14] MEDS: INSULIN DETEMIR (LEVEMIR) 100 UNIT/ML SYR SQ SCH (22:39)
--- NOTE | 2021-11-14 22:48 | CT ---
EXAMINATION TYPE: CT chest angio for PE DATE OF EXAM: 11/14/2021 COMPARISON: February 26, 2020 HISTORY: Elevated d-dimer. Covid + Pt labs >90, 0.55, 22. Pt rt arm extravasated despite flushing wel l prior to exam. Had to re-inject. CT DLP: 927.2 mGycm Automated exposure control for dose reduction was used. CONTRAST: Performed with IV Contrast, patient injected with 120 mL of Isovue 370. There are Three-D postprocessed images. There is some pulmonary emphysema. There is patchy linear infiltrate or atelectasis at both lung base s. Heart is borderline enlarged. There is no pericardial effusion. There are no hilar masses. There is no mediastinal adenopathy. Sternum is intact. Thoracic spine is intact. There is no evidence of filling defect in the pulmonary arteries. IMPRESSION: No evidence of pulmonary embolism. There is some linear infiltrate and atelectasis at the lung bases bilaterally which is increased compared to old exam. No suspicious pulmonary mass.
[2021-11-15] MEDS: ALBUTEROL HFA INHALER INHALATION SCH ×5 (04:14→20:06)
[2021-11-15 05:54] LABS: Glucose,Whole Blood 114 mg/dL (75-99)
[2021-11-15] MEDS: INSULIN ASPART (NovoLOG) 100 UNIT/ML VIAL SQ SCH ×6 (06:49→17:13)
[2021-11-15] MEDS: metFORMIN 500 MG TAB PO SCH ×2 (06:50→17:14)
[2021-11-15] MEDS: SYMBICORT 160-4.5 MCG INHALER INHALATION SCH ×2 (09:18→20:06)
[2021-11-15] MEDS: AMMONIUM LACTATE 12% CREAM 140 GM TUBE TOPICAL SCH ×2 (09:37→20:49)
[2021-11-15] MEDS: ZINC SULFATE 220 MG CAP PO SCH (09:38)
[2021-11-15] MEDS: dexAMETHasone 2 MG TAB PO SCH (09:38)
[2021-11-15] MEDS: LINAGLIPTIN 5 MG TABLET PO SCH (09:38)
[2021-11-15] MEDS: CHOLECALCIFEROL 125 MCG (5000 IU) TABLET PO SCH (09:38)
[2021-11-15] MEDS: ENOXAPARIN 40 MG/0.4 ML SYRINGE SQ SCH (09:39)
[2021-11-15] MEDS: ASCORBIC ACID 500 MG TAB PO SCH ×2 (09:39→20:46)
[2021-11-15 12:13] LABS: Glucose,Whole Blood 105 mg/dL (75-99)
--- NOTE | 2021-11-15 15:20 | P.PN ---
Progress Note - Text Progress Note Date: 11/15/21 Chief Complaint: Short of breath History of presenting complaint This is a 61-year-old patient, follows with Dr. West from visiting physicians. Chronic stable medical conditions include diabetes, hypertension, schizophrenia, morbid obesity, smoker. She was sent in from the assisted living. Patient's found to be confused different from baseline. She was found to have a pulse ox appears to be in the 50s. Patient be short of breath and tired. I saw the patient in the ER. Patient somewhat delirious. Initially he was supplied 6 L of nasal cannula. 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 Unable to obtain any detailed history from the patient. Patient is a cough. She did have some fever. Nurse informed me that patient did not take the COVID-19 vaccine. And patient did positive for COVID-19 in the ER. Patient on 15 L high flow oxygen. Admitted with acute COVID-19 bilateral pneumonitis, acute hypoxic respiratory failure, acute delirium/encephalopathy from hypoxia, acute COPD exacerbation. Place and IV fluids, high flow nasal cannula. Dexamethasone. Symbicort, Chapo tolin. Subcu Lovenox. November 06: More awake today. Hungry. Eating. On 13 L of high flow nasal cannula. Answering questions bit more appropriately. Short of breath. Tired. November 07: Patient's had a full lunch. Still very hungry. Watching television. Short of breath. On 15 L nasal cannula. Answering questions. Awake.. November 08: Eating well. FiO2 down to 10 L. Breathing a bit better. Less short of breath. November 09: Remains on 10 L of oxygen. Oral intake good. Some shortness breath. Some cough. October 15: Eating well. 10 L nasal cannula. Some shortness of breath. Recl ining in bed. November 11: Remains on 10 L nasal cannula. Short of breath. Eating well. In bed. Some cough. We will attempt to dropped FiO2. November 12: 8 L L nasal cannula. Oral intake fair. Has been in bed. Have the patient use incentive spirometry. November 13: Remains on 8 L nasal cannula. Pulse ox code. We will have decreased the FiO2. Oral intake remains good. Has been in bed. November 14: Reclining in bed. FiO2 decreased to 4 L. Oral intake good. Discussed with the patient. Encourage incentive spirometry. November 15: Reclining in bed. FiO2 increased to 6 L. Eating well. Shortness of breath. Review of systems: Was done for constitutional, cardiovascular, GI, pulmonary. relevant finding as above Active Medications Acetaminophen (Acetaminophen Tab 500 Mg Tab) 1,000 mg PO Q6HR PRN PRN Reason: Fever>101 Albuterol Sulfate (Albuterol Hfa Inhaler) 2 puff INHALATION RT-Q6H PRN PRN Reason: Shortness Of Breath Or Wheezing Albuterol Sulfate (Albuterol Hfa Inhaler) 4 puff INHALATION Q4H [facility] Last Admin: 11/15/21 11:37 Dose: Not Given Documented by: Ascorbic Acid (Ascorbic Acid 500 Mg Tab) 500 mg PO BID [facility] Last Admin: 11/15/21 09:39 Dose: 500 mg Documented by: Atorvastatin Calcium (Atorvastatin 20 Mg Tab) 20 mg PO [facility] Last Admin: 11/14/21 22:38 Dose: 20 mg Documented by: Budesonide/Formoterol Fumarate (Symbicort 160-4.5 Mcg Inhaler) 2 puff INHALATION RT-BID@ [facility] Last Admin: 11/15/21 09:18 Dose: Not Given Documented by: Cholecalciferol (Cholecalciferol 125 Mcg (5000 Iu) Tablet) 125 mcg PO DAILY [facility] Last Admin: 11/15/21 09:38 Dose: 125 mcg Documented by: Clozapine (Clozapine 100 Mg Tab) 200 mg PO [facility] Stop: 11/21/21 23:00 Last Admin: 11/14/21 22:38 Dose: 200 mg Documented by: Dexamethasone (Dexamethasone 2 Mg Tab) 6 mg PO DAILY [facility] Last Admin: 11/15/21 09:38 Dose: 6 mg Documented by: Divalproex Sodium (Divalproex Er 500 Mg Tab.Er.24h) 1,500 mg PO [facility] Last Admin: 11/14/21 22:37 Dose: 1,500 mg Documented by: Enoxaparin Sodium (Enoxaparin 40 Mg/0.4 Ml Syringe) 40 mg SQ DAILY [facility] Last Admin: 11/15/21 09:39 Dose: 40 mg Documented by: Ergocalciferol (Ergocalciferol 1,250 Mcg (50,000 Iu) Capsule) 1,250 mcg PO FR@0800 [facility] Last Admin: 11/09/21 09:33 Dose: 1,250 mcg Documented by: Sodium Chloride (Saline 0.9%) 1,000 mls @ 10 mls/hr IV .Q24H [facility] Last Admin: 11/14/21 14:55 Dose: Not Given Documented by: Insulin Aspart (Insulin Aspart (Novolog) 100 Unit/Ml Vial) 0 unit SQ AC-TID [facility]; Protocol Last Admin: 11/15/21 12:51 Dose: Not Given Documented by: Insulin Aspart (Insulin Aspart (Novolog) 100 Unit/Ml Vial) 4 unit SQ AC-TID [facility] Last Admin: 11/15/21 12:51 Dose: 4 unit Documented by: Insulin Detemir (Insulin Detemir (Levemir) 100 Unit/Ml Syr) 24 unit SQ HS [facility] Last Admin: 11/14/21 22:39 Dose: 24 unit Documented by: Lactic Acid (Ammonium Lactate 12% Cream 140 Gm Tube) 1 applic TOPICAL BID@0800,2100 [facility]; Protocol Last Admin: 11/15/21 09:37 Dose: 1 applic Documented by: Linagliptin (Linagliptin 5 Mg Tablet) 5 mg PO DAILY@0800 [facility] Last Admin: 11/15/21 09:38 Dose: 5 mg Documented by: Metformin HCl (Metformin 500 Mg Tab) 1,000 mg PO BID-W/MEALS [facility] Last Admin: 11/15/21 06:50 Dose: 1,000 mg Documented by: Naloxone HCl (Naloxone 0.4 Mg/Ml 1 Ml Vial) 0.2 mg IV Q2M PRN PRN Reason: Opioid Reversal Zinc Sulfate (Zinc Sulfate 220 Mg Cap) 220 mg PO DAILY [facility] Last Admin: 11/15/21 09:38 Dose: 220 mg Documented by: Past medical history to include: COPD, diabetes, hypertension, morbid obesity, home oxygen 2 L, schizophrenia, morbid obesity Social history: Assisted living.. Smokes at least a pack and a half a day since the age of 15. That is about 45 years. No alcohol. Family history: Patient cannot tell Physical examination: VITAL SIGNS: 97.4, 72, 149/93, 96% on 6 L GENERAL: Reclining in bed , , shortness of breath LUNGS:Respiratory rate increased, PSYCH AO 3. Slightly anxious. NEUROLOGICAL: Cranial nerves grossly intact; no facial asymmetry, moving limbs Rest of the exam per pulmonary and nursing INVESTIGATIONS, reviewed in the clinical context: November 15: D-dimer 0.71 CRP less than 0.5 November 14: White count 8.4 hemoglobin 11.8 d-dimer 2.3 potassium 4.6 creatinine 0.55 November 10: D-dimer 0.4 CRP 0.9 November 09: D-dimer 0.7 to CRP 2.2. Accu-Cheks November 08: D-dimer 0.64 CRP 3 November 07: White count 7.3 hemoglobin 11.1 platelets 212. Accu-Cheks November 06: Accu-Cheks noted. ABG from last night showed a pCO2 of 72 White count 6.4 hemoglobin 11.5 platelets 185 sodium 135 potassium 4.1 bicarb 35 creatinine 0.62 Lactic acid 2.2 CRP 3.6 procalcitonin 0.03 Coronavirus [PCR]: Detected Influenza type A/type B: Not detected EKG tracing personally reviewed by me-not a good quality EKG. Sinus rhythm. Nonspecific ST segment changes Chest x-ray film personally reviewed by me-bilateral lower zone infiltrates Assessment and plan: -Acute severe COVID 19 pneumonitis bilateral. In a non-vaccinate patient.: Improving Vitamin C, vitamin D, zinc, dexamethasone. Subcu Lovenox -Acute severe hypoxic respiratory failure from COVID 19 pneumonitis: Improving slowly Currently on 6 L oxygen -Chronic nicotine dependence, cigarette smoker Nicotine patch -Acute COPD exacerbation in a current smoker: Slow to respond Albuterol 4 puffs every 4 with spacer. Dexamethasone. -Acute delirium/metabolic encephalopathy from hypoxia: Resolved Follow clinically -Schizophrenia: Depakote ER, Clozaril -Hyperlipidemia Lipitor 20 mg daily at bedtime -Diabetes mellitus type 2 on oral hypoglycemic: Uncontrolled with hyperglycemia, from steroids Resume metformin.. Follow Accu-Cheks and sliding scale insulin. Levemir 24 units subcu daily at bedtime. Increase 4 units of Humalog with meals -Obesity BMI 39.[address] the [address] -Chronic hypoxic respiratory failure on 2 L nasal cannula from underlying COPD Dexamethasone. Subcu Lovenox. Decrease FiO2. We'll consider discharge when FiO2 is around 3 L
[2021-11-15 16:35] LABS: Glucose,Whole Blood 259 mg/dL (75-99)
[2021-11-15] MEDS: SODIUM CHLORIDE 0.9% 1,000 ML IV SCH (17:14)
[2021-11-15 20:27] LABS: Glucose,Whole Blood 231 mg/dL (75-99)
[2021-11-15] MEDS: INSULIN DETEMIR (LEVEMIR) 100 UNIT/ML SYR SQ SCH (20:46)
[2021-11-15] MEDS: DIVALPROEX ER 500 MG TAB.ER.24H PO SCH (20:46)
[2021-11-15] MEDS: ATORVASTATIN 20 MG TAB PO SCH (20:46)
[2021-11-15] MEDS: cloZAPine 100 MG TAB PO SCH (20:46)
[2021-11-16] MEDS: ALBUTEROL HFA INHALER INHALATION SCH ×4 (00:51→11:59)
[2021-11-16 04:07] VITALS: RESP 18
[2021-11-16 06:16] LABS: Glucose,Whole Blood 103 mg/dL (75-99)
[2021-11-16] MEDS: INSULIN ASPART (NovoLOG) 100 UNIT/ML VIAL SQ SCH ×4 (06:21→12:08)
[2021-11-16] MEDS: metFORMIN 500 MG TAB PO SCH ×2 (06:24→08:23)
[2021-11-16] MEDS: ERGOCALCIFEROL 1,250 MCG (50,000 IU) CAPSULE PO SCH (08:23)
[2021-11-16] MEDS: CHOLECALCIFEROL 125 MCG (5000 IU) TABLET PO SCH (08:23)
[2021-11-16] MEDS: ZINC SULFATE 220 MG CAP PO SCH (08:23)
[2021-11-16] MEDS: LINAGLIPTIN 5 MG TABLET PO SCH (08:23)
[2021-11-16] MEDS: ENOXAPARIN 40 MG/0.4 ML SYRINGE SQ SCH (08:23)
[2021-11-16] MEDS: AMMONIUM LACTATE 12% CREAM 140 GM TUBE TOPICAL SCH (08:23)
[2021-11-16] MEDS: dexAMETHasone 2 MG TAB PO SCH (08:23)
[2021-11-16] MEDS: ASCORBIC ACID 500 MG TAB PO SCH (08:23)
[2021-11-16] MEDS: SYMBICORT 160-4.5 MCG INHALER INHALATION SCH (08:41)
[2021-11-16 11:56] LABS: Glucose,Whole Blood 140 mg/dL (75-99)
[2021-11-16] MEDS: SODIUM CHLORIDE 0.9% 1,000 ML IV SCH (14:31)
--- NOTE | 2021-11-16 14:33 | P.DS ---
Providers Date of admission: 11/05/21 09:38 Expected date of discharge: 11/16/21 Attending physician: Herb Vuong Consults: 11/05/21 09:39 Consult Physician Routine Consulting Provider: Amilcar Burrell Consult Reason/Comments: covid, hypoxia Do you want consulting provider notified?: Yes Primary care physician: Ponce West MD Hospital Course: Chief Complaint: Short of breath History of presenting complaint This is a 61-year-old patient, follows with Dr. West from visiting physicians. Chronic stable medical conditions include diabetes, hypertension, schizophrenia, morbid obesity, smoker. She was sent in from the assisted living. Patient's found to be confused different from baseline. She was found to have a pulse ox appears to be in the 50s. Patient be short of breath and tired. I saw the patient in the ER. Patient somewhat delirious. Initially he was supplied 6 L of nasal cannula. 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 Unable to obtain any detailed history from the patient. Patient is a cough. She did have some fever. Nurse informed me that patient did not take the COVID-19 vaccine. And patient did positive for COVID-19 in the ER. Patient on 15 L high flow oxygen. Admitted with acute COVID-19 bilateral pneumonitis, acute hypoxic respiratory failure, acute delirium/encephalopathy from hypoxia, acute COPD exacerbation. Place and IV fluids, high flow nasal cannula. Dexamethasone. Symbicort, Ventolin. Subcu Lovenox. Patient's appetite slowly improved. Oxygen requirements slowly started to come down. Using incentive spirometry. November 16: Oxygen down to 5 L. Eating decent. Pulmonary has signed off. Patient to use incentive spirometry. Discussed with social work professor. [facility]. We will use xarelto and prednisone taper. The former for DVT prophylaxis because of COVID. Decreased mobility. COBRA form completed. Discussion and discharge planning more than 35 minutes Consultants: Dr. Nicholson and partners from pulmonary Past medical history to include: COPD, diabetes, hypertension, morbid obesity, home oxygen 2 L, schizophrenia, morbid obesity Social history: Assisted living.. Smokes at least a pack and a half a day since the age of 15. That is about 45 years. No alcohol. Family history: Patient cannot tell Physical examination: VITAL SIGNS: 97.7, 61, 18,112 x 67, 90% on 5 L GENERAL: Reclining in bed , , shortness of breath LUNGS:Respiratory rate increased, PSYCH AO 3. Slightly anxious. NEUROLOGICAL: Cranial nerves grossly intact; no facial asymmetry, moving limbs Rest of the exam per pulmonary and nursing INVESTIGATIONS, reviewed in the clinical context: November 15: D-dimer 0.71 CRP less than 0.5 November 14: White count 8.4 hemoglobin 11.8 d-dimer 2.3 potassium 4.6 creatinine 0.55 Lactic acid 2.2 CRP 3.6 procalcitonin 0.03 Coronavirus [PCR]: Detected Influenza type A/type B: Not detected EKG tracing personally reviewed by me-not a good quality EKG. Sinus rhythm. Nonspecific ST segment changes Chest x-ray film personally reviewed by me-bilateral lower zone infiltrates Assessment and plan: -Acute severe COVID 19 pneumonitis bilateral. In a non-vaccinate patient.: Better Vitamin C, vitamin D, zinc, dexamethasone. Subcu Lovenox Discharge with xarelto 10 mg and prednisone taper -Acute severe hypoxic respiratory failure from COVID 19 pneumonitis: Better Currently on 5 L oxygen -Chronic nicotine dependence, cigarette smoker Nicotine patch -Acute COPD exacerbation in a current smoker: Better DuoNeb and Symbicort. Prednisone taper -Acute delirium/metabolic encephalopathy from hypoxia: Resolved Follow clinically -Schizophrenia: Depakote ER, Clozaril -Hyperlipidemia Lipitor 20 mg daily at bedtime -Diabetes mellitus type 2 on oral hypoglycemic: Uncontrolled with hyperglycemia, from steroids Resume metformin. trajenta, Amaryl. Follow Accu-Cheks and sliding scale insulin. -Obesity BMI 39.2 Weight loss measures down the road -Chronic hypoxic respiratory failure on 2 L nasal cannula from underlying COPD Disposition: [facility] at [facility] - Discharge Summary Discharge Rx Participant: No New Discharge Prescriptions: New Aspirin 81 mg PO DAILY #1 tab Famotidine [Pepcid] 20 mg PO BID #60 tablet Rivaroxaban [Xarelto] 10 mg PO DAILY #30 tab Zinc Sulfate [Orazinc] 220 mg PO DAILY cap predniSONE 10 mg PO DAILY #30 tab Ascorbic Acid [Vitamin C] 500 mg PO BID tab Continue Ergocalciferol [Vitamin D2 (DRISDOL)] 50,000 unit PO FR@0800 Linagliptin [Tradjenta] 5 mg PO DAILY@0800 Ipratropium-Albuterol Nebulize [Duoneb 0.5 mg-3 mg/3 ml Soln] 3 ml INHALATION RT-QID@08,13,, Glimepiride [Amaryl] 2 mg PO BID@0800,1700 Siltussin Sa 1 dose PO DIRECTED Jay-Tin Liquid 30 ml PO DIRECTED PRN PRN Reason: Diarrhea Beneprotein 7 gm PO DAILY@0800 cloZAPine [Clozaril] 200 mg PO HS Albuterol Sulfate [Proair Hfa] 2 puff INHALATION RT-Q6H PRN PRN Reason: Shortness Of Breath Budesonide-Formot 160-4.5 Mcg [Symbicort 160-4.5 Mcg Inhaler] 2 puff INHALATION RT-BID@ Ammonium Lactate Cream [Lac-Hydrin 12% Cream] 1 applic TOPICAL BID@0800,2100 Loperamide [Imodium] 2 mg PO DIRECTED PRN PRN Reason: Diarrhea Potassium Chloride [Klor-Con 20] 20 meq PO DAILY@0800 Furosemide [Lasix] 20 mg PO DAILY@1700 Divalproex ER [Depakote ER] 1,500 tab PO HS Fiber Powder 1 dose PO DAILY PRN PRN Reason: Constipation metFORMIN HCL [Glucophage] 1,000 mg PO BID Atorvastatin Calcium [Lipitor] 20 mg PO HS Stomach Relief Susp 30 ml PO DIRECTED PRN PRN Reason: Diarrhea Changed Acetaminophen [Tylenol] 500 mg PO Q6H PRN #0 MDD 8 TABS PRN Reason: Pain Discontinued Aspirin EC [Ecotrin] 325 mg PO DAILY PRN PRN Reason: Pain Or Fever > 100.5 Losartan-Hctz 50-12.5 mg [Hyzaar 50-12.5] 1 tab PO DAILY@0800 Ibuprofen [Motrin Ib] 200 mg PO Q6H PRN PRN Reason: Pain Or Fever > 100.5 Pseudoephedrine HCl [Sudogest] 60 mg PO DAILY PRN PRN Reason: Congestion Docusate [Colace] 100 mg PO DAILY PRN PRN Reason: Constipation diphenhydrAMINE [Benadryl] 25 mg PO DAILY PRN PRN Reason: Allergy Symptoms Furosemide [Lasix] 40 mg PO DAILY@0800 Discharge Medication List Ergocalciferol [Vitamin D2 (DRISDOL)] 50,000 unit PO FR@0800 09/02/19 [History] Linagliptin [Tradjenta] 5 mg PO DAILY@0800 04/20/20 [History] Ammonium Lactate Cream [Lac-Hydrin 12% Cream] 1 applic TOPICAL BID@0800,2100 04/12/21 [History] Beneprotein 7 gm PO DAILY@0800 04/12/21 [History] Divalproex ER [Depakote ER] 1,500 tab PO HS 04/12/21 [History] Fiber Powder 1 dose PO DAILY PRN 04/12/21 [History] Furosemide [Lasix] 20 mg PO DAILY@17004/12/21 [History] Glimepiride [Amaryl] 2 mg PO BID@0800,1700 04/12/21 [History] Ipratropium-Albuterol Nebulize [Duoneb 0.5 mg-3 mg/3 ml Soln] 3 ml INHALATION RT-QID@,,,04/12/21 [History] Jay-Tin Liquid 30 ml PO DIRECTED PRN 04/12/21 [History] Loperamide [Imodium] 2 mg PO DIRECTED PRN 04/12/21 [History] Potassium Chloride [Klor-Con 20] 20 meq PO DAILY@0800 04/12/21 [History] Siltussin Sa 1 dose PO DIRECTED 04/12/21 [History] Albuterol Sulfate [Proair Hfa] 2 puff INHALATION RT-Q6H PRN 11/05/21 [History] Atorvastatin Calcium [Lipitor] 20 mg PO HS 11/05/21 [History] Budesonide-Formot 160-4.5 Mcg [Symbicort 160-4.5 Mcg Inhaler] 2 puff INHALATION RT-BID@,11/05/21 [History] Stomach Relief Susp 30 ml PO DIRECTED PRN 11/05/21 [History] cloZAPine [Clozaril] 200 mg PO HS 11/05/21 [History] metFORMIN HCL [Glucophage] 1,000 mg PO BID 11/05/21 [History] Acetaminophen [Tylenol] 500 mg PO Q6H PRN #0 MDD 8 TABS 11/16/21 [Rx] Ascorbic Acid [Vitamin C] 500 mg PO BID tab 11/16/21 [Rx] Aspirin 81 mg PO DAILY #1 tab 11/16/21 [Rx] Famotidine [Pepcid] 20 mg PO BID #60 tablet 11/16/21 [Rx] Rivaroxaban [Xarelto] 10 mg PO DAILY #30 tab 11/16/21 [Rx] Zinc Sulfate [Orazinc] 220 mg PO DAILY cap 11/16/21 [Rx] predniSONE 10 mg PO DAILY #30 tab 11/16/21 [Rx] Follow up Appointment(s)/Referral(s): Meredith Nicholson MD [STAFF PHYSICIAN] - 2 Weeks Isrrael Kaba DO [STAFF PHYSICIAN] - 1-2 Days Ponce West MD [Primary Care Provider] - As Needed Activity/Diet/Wound Care/Special Instructions: Patient will need a van ride home at d/c and bill to be sent to [facility] office.
[2021-11-16 14:48] VITALS: BP 118/70; PULSE 64; TEMP 97.9
== END 2021-11-16 15:43 | DRG 177 ==
LOC: EC 08:37 → 3SCARD 09:38
PROVIDERS: ADMIT Hospitalist; ATTEND Hospitalist
PROC: 5A09357 Assistance with Respiratory Ventilation, Less than 24 Consecutive Hours, Continuous Positive Airway Pressure (ICD-10-PCS; principal; 2021-11-11)
DX: U07.1 COVID-19 (principal); J12.82 Pneumonia due to coronavirus disease 2019; J96.21 Acute and chronic respiratory failure with hypoxia; G93.41 Metabolic encephalopathy; E87.2 Acidosis; E11.65 Type 2 diabetes mellitus with hyperglycemia; E78.5 Hyperlipidemia, unspecified; F17.210 Nicotine dependence, cigarettes, uncomplicated; I10 Essential (primary) hypertension; F20.9 Schizophrenia, unspecified; J43.9 Emphysema, unspecified; E66.01 Morbid (severe) obesity due to excess calories; Z68.39 Body mass index [BMI] 39.0-39.9, adult; Z99.81 Dependence on supplemental oxygen; Z79.4 Long term (current) use of insulin; Z79.51 Long term (current) use of inhaled steroids; Z79.82 Long term (current) use of aspirin; Z79.899 Other long term (current) drug therapy; Z91.040 Latex allergy status; Z88.8 Allergy status to other drugs, medicaments and biological substances; Z91.018 Allergy to other foods
CPT/HCPCS: 36415; 36600; 71045; 71275; 80053; 82728; 82805; 83605; 83615; 83735; 83880; 84145; 85025; 85379; 85610; 85730; 86140; 87502; 87635; 93005; 93970; 94640; 94660; 94760; 99285

== ENCOUNTER 2023-10-01 11:02 | Inpatient (IN) | payer MEDICARE, OTHER ==
[2023-10-01] MEDS ORDERED: ALBUTEROL NEBULIZED 2.5 MG/3 ML INHALATION STA (11:20)
[2023-10-01] MEDS ORDERED: DEXAMETHASONE SOD PHOSPHATE 10 MG/ML 1 ML VIAL IV STA (11:20)
[2023-10-01] MEDS ORDERED: IPRATROPIUM 0.5 MG/2.5 ML NEBU INHALATION STA (11:20)
[2023-10-01] MEDS ORDERED: ACETAMINOPHEN IV (For NPO) 1,000 MG in EMPTY BAG 1 BAG IVPB STA (11:21)
[2023-10-01 11:31] LABS: Allen Test Performed? Yes
--- NOTE | 2023-10-01 11:32 | ED ---
General Adult HPI - General Chief complaint: Altered Mental Status Stated complaint: AMS Time Seen by Provider: 10/01/23 11:11 Source: EMS Mode of arrival: EMS Limitations: altered mental status - History of Present Illness Initial comments: Dictation was produced using [employer] dictation software. please excuse any grammatical, word or spelling errors. Chief Complaint: 63-year-old female presents to the emergency Department with altered mentation and respiratory failure History of Present Illness: 63-year-old female with multiple comorbidities presents to the ER for altered mentation and respiratory failure. Patient is unable to provide his present also at this time secondary to mental status. According to EMS received report from senior living patient has been having respiratory symptoms for approximately 3 days. She is found to be hypoxic this morning she was altered which is when EMS was called. EMS reports the patient is hypoxic on arrival and 80%. She's been positive for coronavirus. Patient has multiple pulmonary comorbidities. The ROS documented in this emergency department record has been reviewed and co nfirmed by me. Those systems with pertinent positive or negative responses have been documented in the HPI. All other systems are other negative and/or noncontributory. - Related Data Home Medications Medication Instructions Recorded Confirmed Ergocalciferol [Vitamin D2 50,000 unit PO SA@1700 09/02/19 10/01/23 (DRISDOL)] Linagliptin [Tradjenta] 5 mg PO DAILY@0800 04/20/20 10/01/23 Divalproex ER [Depakote ER] 1,500 mg PO HS@2100 04/12/21 10/01/23 Ipratropium-Albuterol Nebulize 3 ml INHALATION RT-QID@,,,04/12/21 10/01/23 [Duoneb 0.5 mg-3 mg/3 ml Soln] Albuterol Sulfate [Proair Hfa] 2 puff INHALATION RT-Q6H PRN 11/05/21 10/01/23 Atorvastatin Calcium [Lipitor] 20 mg PO HS 11/05/21 10/01/23 Budesonide-Formot 160-4.5 Mcg 2 puff INHALATION RT-BID@,11/05/21 10/01/23 [Symbicort 160-4.5 Mcg Inhaler] metFORMIN HCL [Glucophage] 1,000 mg PO BID@0800,1700 11/05/21 10/01/23 Ascorbic Acid [Vitamin C] 500 mg PO BID@0800,1700 12/07/21 10/01/23 Aspirin 81 mg PO DAILY@0800 12/07/21 10/01/23 Famotidine [Pepcid] 20 mg PO BID@0800,1700 12/07/21 10/01/23 Rivaroxaban [Xarelto] 10 mg PO DAILY@0800 12/07/21 10/01/23 Zinc Sulfate [Orazinc] 220 mg PO DAILY@1700 12/07/21 10/01/23 Furosemide [Lasix] 20 mg PO DAILY@0800 10/01/23 10/01/23 INSULIN ASPART (NovoLOG) [NovoLOG 7 unit SQ BID@0700,1630 10/01/23 10/01/23 (formulary)] INSULIN ASPART (NovoLOG) [NovoLOG 10 unit SQ DAILY@1100 10/01/23 10/01/23 (formulary)] INSULIN ASPART (NovoLOG) [NovoLOG See Protocol SQ AC-TID 10/01/23 10/01/23 (formulary)] Magnesium Hydroxide [Milk of 7,200 mg PO Q48H PRN 10/01/23 10/01/23 Magnesia Concentrate] Na Phos,M-B/Na Phos,Di-Ba [Fleet 133 ml RECTAL DAILY PRN 10/01/23 10/01/23 Adult] bisacodyL [Dulcolax] 10 mg RECTAL DAILY PRN 10/01/23 10/01/23 cloZAPine [Clozapine] 200 mg PO HS@209910/01/23 10/01/23 dexAMETHasone [Decadron] 4 mg PO DAILY@0800 10/01/23 10/01/23 guaiFENesin [guaiFENesin ER] 600 mg PO BID@0800,2100 10/01/23 10/01/23 predniSONE 10 mg PO DAILY@0800 10/01/23 10/01/23 Previous Rx's Medication Instructions Recorded Acetaminophen [Tylenol] 500 mg PO Q6H PRN #0 11/16/21 Lactulose [Cephulac] 20 gm PO DAILY PRN ml 12/11/21 Allergies Allergy/AdvReac Type Severity Reaction Status Date / Time honey Allergy Unknown Verified 10/01/23 11:33 latex Allergy Unknown Verified 10/01/23 11:33 risperidone [From Risperdal] Allergy Unknown Verified 10/01/23 11:33 whey Allergy Unknown Verified 10/01/23 11:33 Review of Systems ROS Statement: Those systems with pertinent positive or pertinent negative responses have been documented in the HPI. ROS Other: All systems not noted in ROS Statement are negative. Past Medical History Past Medical History: COPD, Diabetes Mellitus, Hyperlipidemia, Hypertension Additional Past Medical History / Comment(s): Pt recently hospitalized at [facility] for bronchitis, NIDDM type II, O2 ATC now, FALLS, chronic bilateral lower extremity edema, constipation. History of Any Multi-Drug Resistant Organisms: None Reported Past Surgical History: Section Additional Past Surgical History / Comment(s): colonoscopy/benign polypectomy Past Anesthesia/Blood Transfusion Reactions: No Reported Reaction Past Psychological History: Schizophrenia Smoking Status: Current every day smoker Past Alcohol Use History: None Reported Past Drug Use History: None Reported - Past Family History family Family Medical History: Unable to Obtain General Exam - General Exam Comments Initial Comments: PHYSICAL EXAM: General Impression: Obtunded, labored breathing HEENT: Normocephalic atraumatic, extra-ocular movements intact, pupils equal and reactive to light bilaterally, mucous membranes moist. Cardiovascular: Tachycardic Chest: Is respiratory and expiratory rhonchi Abdomen: abdomen soft, non-distended, no organomegaly Musculoskeletal: Pulses present and equal in all extremities, no peripheral edema Motor: no focal deficits noted Neurological: CN II-XII grossly intact, no focal motor or sensory deficits noted Skin: Intact with no visualized rashes Limitations: altered mental status Course Vital Signs 10/01/23 10/01/23 10/01/23 11:09 11:10 11:14 Temperature 101.6 F H Pulse Rate 105 H 103 H Pulse Rate [ Equipment Operator Wage Hand ] Respiratory 32 H 36 H 29 H Rate Blood Pressure 91/56 Blood Pressure [Right Arm] O2 Sat by Pulse 98 95 Oximetry Fraction of Inspired Oxygen (FIO2) 10/01/23 10/01/23 10/01/23 11:17 11:22 11:30 Temperature Pulse Rate 106 H Pulse Rate [ Equipment Operator Wage Hand ] Respiratory 29 H Rate Blood Pressure 91/36 Blood Pressure [Right Arm] O2 Sat by Pulse 95 Oximetry Fraction of 50 50 Inspired Oxygen (FIO2) 10/01/23 10/01/23 10/01/23 12:30 13:00 13:24 Temperature 99.9 F H Pulse Rate 99 96 Pulse Rate [ Equipment Operator Wage Hand ] Respiratory 28 H 28 H Rate Blood Pressure 89/55 84/45 Blood Pressure [Right Arm] O2 Sat by Pulse 95 94 L Oximetry Fraction of Inspired Oxygen (FIO2) 10/01/23 10/01/23 13:30 14:10 Temperature Pulse Rate 93 Pulse Rate [ 90 Equipment Operator Wage Hand ] Respiratory 20 21 Rate Blood Pressure 105/53 Blood Pressure 95/46 [Right Arm] O2 Sat by Pulse 96 97 Oximetry Fraction of Inspired Oxygen (FIO2) - Reevaluation(s) Reevaluation #1: 10/01/23 11:31 Patient seen and evaluated immediately upon arrival. Patient is obtunded and tachypneic. She is also showing signs of respiratory failure. She has positive rhonchi and story and expiratory. Patient has alleged extensive pulmonary histo ry according to transfer documentation. Suspect CO2 narcosis. Patient placed on BiPAP. We'll reassess to determine need for endotracheal intubation. EMS states that patient's presentation improved after some respiratory support and reviewed to the emergency department EKG Findings - EKG Comments: EKG Findings:: My EKG interpretation: Ventricular rate 104, sinus tachycardia,. Interval 155, QRS and 5, QTC 376. No NE prolongation, no QTC prolongation, no ST or T-wave changes noted. Overall, this EKG is unremarkable Procedures - Sepsis Sepsis Focused Exam #1 Time Sepsis Criteria Met: 14:29 Sepsis Focused Exam Date: 10/01/23 Sepsis Focused Exam Time: 14:29 Sepsis Focused Exam Complete: Yes Vital Signs & RN Notes Reviewed: Yes Capillary Refill: < 2 Seconds: Fingers, Toes Peripheral Pulses: Normal: Radial (R), Radial (L), Posterior Tibialis (R), Posterior Tibialis (L), Dorsalis Pedis (R), Dorsalis Pedis (L) Skin Color: Pallor Respiratory Exam: wheezes Cardiovascular Exam: tachycardia Medical Decision Making - Medical Decision Making Was pt. sent in by a medical professional or institution (, PA, SENIOR SQL SERVER DBA, urgent care, hospital, or senior living...) When possible be specific @ -No Did you speak to anyone other than the patient for history (EMS, parent, family, police, friend...)? What history was obtained from this source @ -No Did you review nursing and triage notes (agree or disagree)? Why? @ -I reviewed and agree with nursing and triage notes Were old charts reviewed (outside hosp., previous admission, EMS record, old EKG, old radiological studies, urgent care reports/EKG's, senior living records)? Report findings @ -No old charts were reviewed Differential Diagnosis (chest pain, altered mental status, abdominal pain women, abdominal pain men, vaginal bleeding, musculoskeletal, weakness, fever, dyspnea, syncope, headache, dizziness, GI bleed, back pain, seizure, CVA, palpatations, mental health)? @ -Differential Dyspnea: Coronary syndrome, arrhythmia, tamponade, asthma, COPD, pulmonary embolism, pneumonia, pneumothorax, pulmonary effusion, anaphylaxis, diabetic ketoacidosis, flailed chest, pulmonary contusion, diaphragmatic rupture, anemia, neuromuscular , this is not meant to be an all-inclusive list. EKG interpreted by me (3pts min.). @ -See above X-rays interpreted by me (1pt min.). @ -Chest x-ray shows no acute processes CT interpreted by me (1pt min.). @ -Computed tomography scan of the brain is negative. U/S interpreted by me (1pt. min.). @ -None done What testing was considered but not performed or refused? (CT, X-rays, U/S, labs)? Why? @ -None What meds were considered but not given or refused? Why? @ -None Did you discuss the management of the patient with other professionals (professionals i.e. , PA, SENIOR SQL SERVER DBA, lab, RT, psych nurse, licensed social worker, home therapy clinician, teacher, public records officer, manager case management)? Give summary @ -Is discussed with bottle blower for ICU admission. Case discussed with hospitalist for in-hospital admission. Tools And Parts Attendant requested CT angiography of the chest Was smoking cessation discussed for >3mins.? @ -No Was critical care preformed (if so, how long)? @ -33 minutes Were there social determinants of health that impacted care today? How? (Homelessness, low income, unemployed, alcoholism, drug addiction, transportation, low edu. Level, literacy, decrease access to med. care, [facility], rehab)? @ -No Was there de-escalation of care discussed even if they declined (Discuss DNR or withdrawal of care, Hospice)? DNR status @ -No What co-morbidities impacted this encounter? (DM, HTN, Smoking, COPD, CAD, Cancer, CVA, ARF, Chemo, Hep., AIDS, mental health diagnosis, sleep apnea, morbid obesity)? @ -None Was patient admitted / discharged? Hospital course, mention meds given and route, prescriptions, significant lab abnormalities, going to OR and other pertinent info. @ -63-year-old female presents to the emergency department for respiratory failure. Apparently she has outpatient hypoxia. She has extensive pulmonary history. Vital signs upon arrival shows temperature of 11.6, respiratory 32, blood pressure 91/50 698% on 15 L nonrebreather. Patient bilateral wheezing placed on noninvasive positive pressure ventilation. Patient's work of breathing improved after several minutes of BiPAP. Laboratory evaluation obta ined. CBC, coag panel within acceptable limits. Blood gases are within reasonable limits. Metabolic panel is unremarkable. No lactic acidosis. Urinalysis positive for UTI, chronic virus positive. Brain CT negative. Chest x-ray nonacute. Patient be admitted to the ICU. Patient treated with Zosyn, Decadron and breathing treatment. Patient given 30 mL per KG bolus per ideal body weight for a 5 foot 4 inch female. Undiagnosed new problem with uncertain prognosis? @ -No Drug Therapy requiring intensive monitoring for toxicity (Heparin, Nitro, Insulin, Cardizem)? @ -No Were any procedures done? @ -No Diagnosis/symptom? Acute, or Chronic, or Acute on Chronic? Uncomplicated (without systemic symptoms) or Complicated (systemic symptoms)? @ -Respiratory failure, sepsis Side effects of treatment? @ -No Exacerbation, Progression, or Severe Exacerbation? @ -No Poses a threat to life or bodily function? How? (Chest pain, USA, OR, pneumonia, PE, COPD, DKA, ARF, appy, cholecystitis, CVA, Diverticulitis, Homicidal, Suicidal, threat to staff... and all critical care pts) @ -yes - Lab Data Result diagrams: 10/01/23 11:24 10/01/23 11:24 Lab Results 10/01/23 10/01/23 10/01/23 Range/Units 11:24 11:24 11:24 WBC 10.3 (3.8-10.6) k/uL RBC 3.69 L (3.80-5.40) m/uL Hgb 11.1 L (11.4-16.0) gm/dL Hct 34.0 (34.0-46.0) % MCV 92.0 (80.0-100.0) fL MCH 30.2 (25.0-35.0) pg MCHC 32.8 (31.0-37.0) g/dL RDW 15.8 H (11.5-15.5) % Plt Count 178 (150-450) k/uL MPV 7.8 Neutrophils % 76 % Lymphocytes % 15 % Monocytes % 8 % Eosinophils % 0 % Basophils % 0 % Neutrophils # 7.8 H (1.3-7.7) k/uL Lymphocytes # 1.5 (1.0-4.8) k/uL Monocytes # 0.8 (0-1.0) k/uL Eosinophils # 0.0 (0-0.7) k/uL Basophils # 0.0 (0-0.2) k/uL Hypochromasia Slight PT (10.0-12.5) sec INR (<1.2) APTT (22.0-30.0) sec Sample Site ABG pH (7.35-7.45) ABG pCO2 (35-45) mmHg ABG pO2 (83-108) mmHg ABG HCO3 (21-25) mmol/L ABG Total CO2 (19-24) mmol/L ABG O2 Saturation (94-97) % ABG Base Excess mmol/L [place]ito Test VBG pH (7.31-7.41) VBG pCO2 (37-51) mmHg VBG HCO3 (24-28) mmol/L FiO2 % Sodium 139 (137-145) mmol/L Potassium 3.8 (3.5-5.1) mmol/L Chloride 98 (98-107) mmol/L Carbon Dioxide 35 H (22-30) mmol/L Anion Gap 6 mmol/L BUN 12 (7-17) mg/dL Creatinine 0.50 L (0.52-1.04) mg/dL Est GFR (CKD-EPI)AfAm >90 (>60 ml/min/1.73 sqM) Est GFR (CKD-EPI)NonAf >90 (>60 ml/min/1.73 sqM) Glucose 180 H (74-99) mg/dL POC Glucose (mg/dL) (70-110) mg/dL POC Glu [employer] Deputy Director ID Plasma Lactic Acid Chapo 0.9 (0.7-2.0) mmol/L Calcium 8.3 L (8.4-10.2) mg/dL Magnesium 2.0 (1.6-2.3) mg/dL Total Bilirubin 0.5 (0.2-1.3) mg/dL AST 14 (14-36) U/L ALT 12 (4-34) U/L Alkaline Phosphatase 63 (38-126) U/L Troponin I (0.000-0.034) ng/mL NT-Pro-B Natriuret Pep 399 pg/mL Total Protein 5.6 L (6.3-8.2) g/dL Albumin 3.3 L (3.5-5.0) g/dL Urine Color Urine Appearance (Clear) Urine pH (5.0-8.0) Ur Specific [place] (1.001-1.035) Urine Protein (Negative) Urine Glucose (UA) (Negative) Urine Ketones (Negative) Urine Blood (Negative) Urine Nitrite (Negative) Urine Bilirubin (Negative) Urine Urobilinogen (<2.0) mg/dL Ur Leukocyte Esterase (Negative) Urine RBC (0-5) /hpf Urine WBC (0-5) /hpf Ur Squamous Epith Cells (0-4) /hpf Urine Bacteria (None) /hpf Urine Mucus (None) /hpf Influenza Type A (PCR) (Not Detectd) Influenza Type B (PCR) (Not Detectd) RSV (PCR) (Not Detectd) SARS-CoV-2 (PCR) (Not Detectd) Blood Type Blood Type Confirm Blood Type Recheck Bld Type Recheck Status Antibody Screen Spec Expiration Date 10/01/23 10/01/23 10/01/23 Range/Units 11:24 11:24 11:24 WBC (3.8-10.6) k/uL RBC (3.80-5.40) m/uL Hgb (11.4-16.0) gm/dL Hct (34.0-46.0) % MCV (80.0-100.0) fL MCH (25.0-35.0) pg MCHC (31.0-37.0) g/dL RDW (11.5-15.5) % Plt Count (150-450) k/uL MPV Neutrophils % % Lymphocytes % % Monocytes % % Eosinophils % % Basophils % % Neutrophils # (1.3-7.7) k/uL Lymphocytes # (1.0-4.8) k/uL Monocytes # (0-1.0) k/uL Eosinophils # (0-0.7) k/uL Basophils # (0-0.2) k/uL Hypochromasia PT 10.1 (10.0-12.5) sec INR 0.9 (<1.2) APTT 22.9 (22.0-30.0) sec Sample Site ABG pH (7.35-7.45) ABG pCO2 (35-45) mmHg ABG pO2 (83-108) mmHg ABG HCO3 (21-25) mmol/L ABG Total CO2 (19-24) mmol/L ABG O2 Saturation (94-97) % ABG Base Excess mmol/L [place]ito Test VBG pH (7.31-7.41) VBG pCO2 (37-51) mmHg VBG HCO3 (24-28) mmol/L FiO2 % Sodium (137-145) mmol/L Potassium (3.5-5.1) mmol/L Chloride (98-107) mmol/L Carbon Dioxide (22-30) mmol/L Anion Gap mmol/L BUN (7-17) mg/dL Creatinine (0.52-1.04) mg/dL Est GFR (CKD-EPI)AfAm (>60 ml/min/1.73 sqM) Est GFR (CKD-EPI)NonAf (>60 ml/min/1.73 sqM) Glucose (74-99) mg/dL POC Glucose (mg/dL) (70-110) mg/dL POC Glu [employer] Deputy Director ID Plasma Lactic Acid Chapo (0.7-2.0) mmol/L Calcium (8.4-10.2) mg/dL Magnesium (1.6-2.3) mg/dL Total Bilirubin (0.2-1.3) mg/dL AST (14-36) U/L ALT (4-34) U/L Alkaline Phosphatase (38-126) U/L Troponin I (0.000-0.034) ng/mL NT-Pro-B Natriuret Pep pg/mL Total Protein (6.3-8.2) g/dL Albumin (3.5-5.0) g/dL Urine Color Light [place] Urine Appearance Slightly Cloudy H (Clear) Urine pH 6.5 (5.0-8.0) Ur Specific [place] 1.017 (1.001-1.035) Urine Protein 1+ H (Negative) Urine Glucose (UA) Negative (Negative) Urine Ketones 2+ (Negative) Urine Blood Moderate (Negative) Urine Nitrite Negative (Negative) Urine Bilirubin Negative (Negative) Urine Urobilinogen 2.0 (<2.0) mg/dL Ur Leukocyte Esterase Moderate (Negative) Urine RBC 6 H (0-5) /hpf Urine WBC 27 H (0-5) /hpf Ur Squamous Epith Cells <1 (0-4) /hpf Urine Bacteria Many H (None) /hpf Urine Mucus Few H (None) /hpf Influenza Type A (PCR) (Not Detectd) Influenza Type B (PCR) (Not Detectd) RSV (PCR) (Not Detectd) SARS-CoV-2 (PCR) (Not Detectd) Blood Type O Positive Blood Type Confirm Blood Type Recheck No Previous Record Bld Type Recheck Status CABO Indicated Antibody Screen NEGATIVE Spec Expiration Date 10/04/2023 - 232310/01/23 10/01/23 10/01/23 Range/Units 11:24 11:24 11:24 WBC (3.8-10.6) k/uL RBC (3.80-5.40) m/uL Hgb (11.4-16.0) gm/dL Hct (34.0-46.0) % MCV (80.0-100.0) fL MCH (25.0-35.0) pg MCHC (31.0-37.0) g/dL RDW (11.5-15.5) % Plt Count (150-450) k/uL MPV Neutrophils % % Lymphocytes % % Monocytes % % Eosinophils % % Basophils % % Neutrophils # (1.3-7.7) k/uL Lymphocytes # (1.0-4.8) k/uL Monocytes # (0-1.0) k/uL Eosinophils # (0-0.7) k/uL Basophils # (0-0.2) k/uL Hypochromasia PT (10.0-12.5) sec INR (<1.2) APTT (22.0-30.0) sec Sample Site lrad ABG pH 7.40 (7.35-7.45) ABG pCO2 55 H (35-45) mmHg ABG pO2 79 L (83-108) mmHg ABG HCO3 34 H (21-25) mmol/L ABG Total CO2 36 H (19-24) mmol/L ABG O2 Saturation 95.8 (94-97) % ABG Base Excess 9.6 mmol/L [place]ito Test Yes VBG pH 7.40 (7.31-7.41) VBG pCO2 55 H (37-51) mmHg VBG HCO3 34 H (24-28) mmol/L FiO2 50 % Sodium (137-145) mmol/L Potassium (3.5-5.1) mmol/L Chloride (98-107) mmol/L Carbon Dioxide (22-30) mmol/L Anion Gap mmol/L BUN (7-17) mg/dL Creatinine (0.52-1.04) mg/dL Est GFR (CKD-EPI)AfAm (>60 ml/min/1.73 sqM) Est GFR (CKD-EPI)NonAf (>60 ml/min/1.73 sqM) Glucose (74-99) mg/dL POC Glucose (mg/dL) (70-110) mg/dL POC Glu [employer] Deputy Director ID Plasma Lactic Acid Chapo (0.7-2.0) mmol/L Calcium (8.4-10.2) mg/dL Magnesium (1.6-2.3) mg/dL Total Bilirubin (0.2-1.3) mg/dL AST (14-36) U/L ALT (4-34) U/L Alkaline Phosphatase (38-126) U/L Troponin I <0.012 (0.000-0.034) ng/mL NT-Pro-B Natriuret Pep pg/mL Total Protein (6.3-8.2) g/dL Albumin (3.5-5.0) g/dL Urine Color Urine Appearance (Clear) Urine pH (5.0-8.0) Ur Specific [place] (1.001-1.035) Urine Protein (Negative) Urine Glucose (UA) (Negative) Urine Ketones (Negative) Urine Blood (Negative) Urine Nitrite (Negative) Urine Bilirubin (Negative) Urine Urobilinogen (<2.0) mg/dL Ur Leukocyte Esterase (Negative) Urine RBC (0-5) /hpf Urine WBC (0-5) /hpf Ur Squamous Epith Cells (0-4) /hpf Urine Bacteria (None) /hpf Urine Mucus (None) /hpf Influenza Type A (PCR) Not Detected (Not Detectd) Influenza Type B (PCR) Not Detected (Not Detectd) RSV (PCR) Not Detected (Not Detectd) SARS-CoV-2 (PCR) Detected A (Not Detectd) Blood Type Blood Type Confirm Blood Type Recheck Bld Type Recheck Status Antibody Screen Spec Expiration Date 10/01/23 10/01/23 Range/Units 11:35 14:12 WBC (3.8-10.6) k/uL RBC (3.80-5.40) m/uL Hgb (11.4-16.0) gm/dL Hct (34.0-46.0) % MCV (80.0-100.0) fL MCH (25.0-35.0) pg MCHC (31.0-37.0) g/dL RDW (11.5-15.5) % Plt Count (150-450) k/uL MPV Neutrophils % % Lymphocytes % % Monocytes % % Eosinophils % % Basophils % % Neutrophils # (1.3-7.7) k/uL Lymphocytes # (1.0-4.8) k/uL Monocytes # (0-1.0) k/uL Eosinophils # (0-0.7) k/uL Basophils # (0-0.2) k/uL Hypochromasia PT (10.0-12.5) sec INR (<1.2) APTT (22.0-30.0) sec Sample Site ABG pH (7.35-7.45) ABG pCO2 (35-45) mmHg ABG pO2 (83-108) mmHg ABG HCO3 (21-25) mmol/L ABG Total CO2 (19-24) mmol/L ABG O2 Saturation (94-97) % ABG Base Excess mmol/L [place]ito Test VBG pH (7.31-7.41) VBG pCO2 (37-51) mmHg VBG HCO3 (24-28) mmol/L FiO2 % Sodium (137-145) mmol/L Potassium (3.5-5.1) mmol/L Chloride (98-107) mmol/L Carbon Dioxide (22-30) mmol/L Anion Gap mmol/L BUN (7-17) mg/dL Creatinine (0.52-1.04) mg/dL Est GFR (CKD-EPI)AfAm (>60 ml/min/1.73 sqM) Est GFR (CKD-EPI)NonAf (>60 ml/min/1.73 sqM) Glucose (74-99) mg/dL POC Glucose (mg/dL) 220 H (70-110) mg/dL POC Glu [employer] Deputy Director ID Louise Ly Plasma Lactic Acid Chapo (0.7-2.0) mmol/L Calcium (8.4-10.2) mg/dL Magnesium (1.6-2.3) mg/dL Total Bilirubin (0.2-1.3) mg/dL AST (14-36) U/L ALT (4-34) U/L Alkaline Phosphatase (38-126) U/L Troponin I (0.000-0.034) ng/mL NT-Pro-B Natriuret Pep pg/mL Total Protein (6.3-8.2) g/dL Albumin (3.5-5.0) g/dL Urine Color Urine Appearance (Clear) Urine pH (5.0-8.0) Ur Specific [place] (1.001-1.035) Urine Protein (Negative) Urine Glucose (UA) (Negative) Urine Ketones (Negative) Urine Blood (Negative) Urine Nitrite (Negative) Urine Bilirubin (Negative) Urine Urobilinogen (<2.0) mg/dL Ur Leukocyte Esterase (Negative) Urine RBC (0-5) /hpf Urine WBC (0-5) /hpf Ur Squamous Epith Cells (0-4) /hpf Urine Bacteria (None) /hpf Urine Mucus (None) /hpf Influenza Type A (PCR) (Not Detectd) Influenza Type B (PCR) (Not Detectd) RSV (PCR) (Not Detectd) SARS-CoV-2 (PCR) (Not Detectd) Blood Type Blood Type Confirm O Positive Blood Type Recheck Bld Type Recheck Status Antibody Screen Spec Expiration Date Disposition Clinical Impression: Respiratory failure Disposition: ADMITTED IP TO THIS HOSP Condition: Critical Referrals: Bello Alberto MD [Primary Care Provider] - 1-2 days Decision Time: 14:29
[2023-10-01 11:37] LABS: ABG Base Excess 9.6 mmol/L; ABG HCO3 34 mmol/L (21-25); ABG Oxygen Saturation 95.8 % (94-97); ABG PCO2 55 mmHg (35-45); ABG PO2 79 mmHg (83-108); ABG TCO2 36 mmol/L (19-24); VBG HCO3 34 mmol/L (24-28); VBG PCO2 55 mmHg (37-51)
[2023-10-01 11:45] LABS: INR 0.9 (<1.2)
[2023-10-01 11:46] LABS: Partial Thromboplastin Time 22.9 sec (22.0-30.0); Prothrombin Time 10.1 sec (10.0-12.5)
[2023-10-01 11:48] LABS: ALT 12 U/L (4-34); AST 14 U/L (14-36); African American GFR (CKD) >90 (>60 ml/min/1.73 sqM); Albumin 3.3 g/dL (3.5-5.0); Alkaline Phosphatase 63 U/L (38-126); Anion Gap 6 mmol/L; Blood Urea Nitrogen 12 mg/dL (7-17); Calcium 8.3 mg/dL (8.4-10.2); Carbon Dioxide 35 mmol/L (22-30); Chloride 98 mmol/L (98-107); Glucose 180 mg/dL (74-99); Non-African American GFR(CKD) >90 (>60 ml/min/1.73 sqM); Potassium 3.8 mmol/L (3.5-5.1); Sodium 139 mmol/L (137-145); Total Bilirubin 0.5 mg/dL (0.2-1.3); Total Protein 5.6 g/dL (6.3-8.2)
[2023-10-01] MEDS ORDERED: ALBUTEROL HFA INHALER INHALATION STA (11:48)
[2023-10-01 11:55] LABS: NT-Pro-B-Type Natriuretic Pept 399 pg/mL
[2023-10-01 11:58] LABS: Basophils % (A) 0 %; Eosinophils % (A) 0 %; HGB 11.1 gm/dL (11.4-16.0); Hypochromasia Slight; Lymphocytes # (A) 1.5 k/uL (1.0-4.8); Lymphocytes % (A) 15 %; MCH 30.2 pg (25.0-35.0); MCHC 32.8 g/dL (31.0-37.0); Mean Platelet Volume 7.8; Monocytes # (A) 0.8 k/uL (0-1.0); Monocytes % (A) 8 %; Neutrophils # (A) 7.8 k/uL (1.3-7.7); Neutrophils % (A) 76 %; Platelet Count 178 k/uL (150-450); RBC 3.69 m/uL (3.80-5.40); RDW 15.8 % (11.5-15.5); WBC 10.3 k/uL (3.8-10.6)
--- NOTE | 2023-10-01 12:06 | XR ---
EXAMINATION TYPE: XR chest 1V portable DATE OF EXAM: 10/01/2023 COMPARISON: Prior chest x-ray December 09, 2021 HISTORY: COVID and hypoxia. TECHNIQUE: Single frontal view of the chest is obtained. FINDINGS: Exam slightly suboptimal secondary to patient's large body habitus. There is mild chronic emphysematous change redemonstrated without suspicious new focal air space opacity, pleural effusion, or pneumothorax seen. The cardiac silhouette size is stable and upper limits of normal. The osseo us structures are intact. IMPRESSION: Chronic changes without new acute pulmonary infiltrate clearly seen.
[2023-10-01 12:31] LABS: Appearance,Urine Slightly Cloudy (Clear); Bacteria,Urine Many /hpf; Color,Urine Light Orange; Mucus,Urine Few /hpf; RBC,Urine 6 /hpf (0-5); Squamous Epithelial Cell,Urine <1 /hpf (0-4); WBC,Urine 27 /hpf (0-5)
[2023-10-01 12:32] LABS: Bilirubin,Urine Negative (Negative); Blood,Urine Moderate (Negative); Glucose,Urine (UA) Negative (Negative); Ketones,Urine 2+ (Negative); Leukocyte Esterase,Urine Moderate (Negative); Nitrite,Urine Negative (Negative); PH, Urine 6.5 (5.0-8.0); Protein,Urine 1+ (Negative); Specific Gravity,Urine 1.017 (1.001-1.035)
[2023-10-01] MEDS ORDERED: PIPERACILLIN-TAZOBACTAM 3.375 GM in SODIUM CHLORIDE 0.9% 100 ML IVPB STA (13:20)
[2023-10-01] MEDS ORDERED: SODIUM CHLORIDE 0.9% 1,000 ML IV STA (13:27)
[2023-10-01] MEDS ORDERED: SODIUM CHLORIDE 0.9% 632 ML IV STA (13:27)
--- NOTE | 2023-10-01 13:35 | CT ---
EXAMINATION TYPE: CT brain wo con DATE OF EXAM: 10/01/2023 HISTORY: Altered mental status CT DLP: 1094.9 mGycm. Automated Exposure Control for Dose Reduction was Utilized. TECHNIQUE: CT scan of the head is performed without contrast. COMPARISON: CT brain August 09, 2010. FINDINGS: There is no acute intracranial hemorrhage or midline shift identified. There is mild diff use ventricular and sulcal prominence redemonstrated. There is mild to moderate low-attenuation in t he periventricular white matter redemonstrated. [id number] mucosal thickening in the inferior a spect of the bilateral maxillary sinuses is seen. There is mucosal thickening and dependent opacity i n the left sphenoid sinus on current study. Partially opacified left anterior ethmoid sinuses are now noted. IMPRESSION: No acute intracranial hemorrhage or midline shift. There is mild diffuse age-related c erebral atrophy and mild to moderate chronic small vessel ischemic change redemonstrated. No signifi cant change from most recent prior CT. There is new paranasal sinus disease seen as detailed above.
[2023-10-01] MEDS ORDERED: NALOXONE 0.4 MG/ML 1 ML VIAL IVP PRN (14:02)
[2023-10-01] MEDS ORDERED: ALBUTEROL NEBULIZED 2.5 MG/3 ML INHALATION PRN (14:02)
[2023-10-01] MEDS ORDERED: ALBUTEROL HFA INHALER INHALATION PRN ×2 (14:04→14:13)
[2023-10-01] MEDS ORDERED: ONDANSETRON 4 MG/2 ML VIAL IVP PRN (14:05)
[2023-10-01] MEDS ORDERED: ACETAMINOPHEN IV (For NPO) 1,000 MG in EMPTY BAG 1 BAG IVPB PRN (14:05)
[2023-10-01] MEDS ORDERED: DEXTROSE 50% SYRINGE 50 ML IVP PRN ×2 (14:06)
[2023-10-01] MEDS: NOREPINEPHRINE 4 MG in SODIUM CHLORIDE 0.9% 250 ML IV ONE (14:08)
[2023-10-01 14:13] LABS: Glucose,Whole Blood 220 mg/dL (70-110)
[2023-10-01] MEDS: INSULIN ASPART (NovoLOG) 100 UNIT/ML VIAL SQ SCH ×3 (14:20→21:27)
[2023-10-01] MEDS ORDERED: NALOXONE 0.4 MG/ML 1 ML VIAL IV PRN (14:24)
--- NOTE | 2023-10-01 14:53 | P.HPIM ---
History of Present Illness H&P Date: 10/01/23 Chief Complaint: Altered mental status * 63-year-old lady with past medical history significant for COPD, chronic hypoxia, diabetes mellitus, hyperlipidemia, hypertension, morbid obesity, schizophrenia, presents from [facility] with altered mentation. * History is limited patient is altered and no family or caregivers at bedside * Per chart review patient was sent in for altered mental status and respiratory failure. According to EMS report patient received fromin-home for respiratory distress. Patient had symptom onset 3 days ago. While at the facility patient was noted to be hypoxic and had saturation in 80%. Patient does have history of severe COPD as well as had similar presentation in 2021 when she was admitted with Covid 19 * Initiated in ER included CBC which were WBC of 10.3 hemoglobin 11.1 platelet count of 178 with elevated neutrophil count * Arterial blood gas obtained showed pH 7.4 pCO2 55 pO2 79 * Serum chemistry shows sodium 139 potassium 3.8, and Axert 35 BUNs 12 creatinine 0.5 glucose 180 * Ammonia within normal limits initial troponin 0.012 * N-terminal proBNP 399 albumin of 3.3 * Urinalysis obtained showed few WBC and urine many bacteria * Patient tested negative for influenza and RSV, positive for COVID-19 * CT head obtained in ED was negative for acute intracranial process, chest x- ray was obtained which was negative for acute process however chronic changes noted * Patient was given 2 L of fluid bolus in ER and started on levo fed for hypotension, intensive care unit team was contacted. Patient was also given 1 dose of Zosyn in ED which will be continued REVIEW OF SYSTEMS: Altered mental status review of system limited PHYSICAL EXAMINATION: GENERAL: The patient is alert and oriented x 0, ill appearance, toxic appe arance, facemask in place HEENT: Pupils are round and equally reacting to light. CARDIOVASCULAR: S1 and S2 present. No murmurs, rubs, or gallops. PULMONARY: Decreased breath sounds bilaterally ABDOMEN: Soft, nontender, nondistended, normoactive bowel sounds. No palpable organomegaly. MUSCULOSKELETAL: No joint swelling or deformity. EXTREMITIES: No cyanosis, clubbing, or pedal edema. NEUROLOGICAL: Gross neurological examination did not reveal any focal deficits. SKIN: Left lotion with the wound noted, erythema noted Past Medical History Past Medical History: COPD, Diabetes Mellitus, Hyperlipidemia, Hypertension Additional Past Medical History / Comment(s): Pt recently hospitalized at [facility] for bronchitis, NIDDM type II, O2 ATC now, FALLS, chronic bilateral lower extremity edema, constipation. History of Any Multi-Drug Resistant Organisms: None Reported Past Surgical History: Section Additional Past Surgical History / Comment(s): colonoscopy/benign polypectomy Past Anesthesia/Blood Transfusion Reactions: No Reported Reaction Past Psychological History: Schizophrenia Smoking Status: Current every day smoker Past Alcohol Use History: None Reported Past Drug Use History: None Reported - Past Family History family Family Medical History: Unable to Obtain Medications and Allergies Home Medications Medication Instructions Recorded Confirmed Type Ergocalciferol [Vitamin D2 50,000 unit PO SA@1700 09/02/19 10/01/23 History (DRISDOL)] Linagliptin [Tradjenta] 5 mg PO DAILY@0800 04/20/20 10/01/23 History Divalproex ER [Depakote ER] 1,500 mg PO HS@2100 04/12/21 10/01/23 History Ipratropium-Albuterol Nebulize 3 ml INHALATION RT-QID@,,,04/12/21 10/01/23 History [Duoneb 0.5 mg-3 mg/3 ml Soln] Albuterol Sulfate [Proair Hfa] 2 puff INHALATION RT-Q6H PRN 11/05/21 10/01/23 History Atorvastatin Calcium [Lipitor] 20 mg PO HS 11/05/21 10/01/23 History Budesonide-Formot 160-4.5 Mcg 2 puff INHALATION RT-BID@08,17 11/05/21 10/01/23 History [Symbicort 160-4.5 Mcg Inhaler] metFORMIN HCL [Glucophage] 1,000 mg PO BID@0800,1700 11/05/21 10/01/23 History Acetaminophen [Tylenol] 500 mg PO Q6H PRN #0 11/16/21 10/01/23 Rx Ascorbic Acid [Vitamin C] 500 mg PO BID@0800,1700 12/07/21 10/01/23 History Aspirin 81 mg PO DAILY@0800 12/07/21 10/01/23 History Famotidine [Pepcid] 20 mg PO BID@0800,1700 12/07/21 10/01/23 History Rivaroxaban [Xarelto] 10 mg PO DAILY@0800 12/07/21 10/01/23 History Zinc Sulfate [Orazinc] 220 mg PO DAILY@1700 12/07/21 10/01/23 History Lactulose [Cephulac] 20 gm PO DAILY PRN ml 12/11/21 10/01/23 Rx Furosemide [Lasix] 20 mg PO DAILY@0800 10/01/23 10/01/23 History INSULIN ASPART (NovoLOG) [NovoLOG 7 unit SQ BID@0700,1630 10/01/23 10/01/23 History (formulary)] INSULIN ASPART (NovoLOG) [NovoLOG 10 unit SQ DAILY@1100 10/01/23 10/01/23 History (formulary)] INSULIN ASPART (NovoLOG) [NovoLOG See Protocol SQ AC-TID 10/01/23 10/01/23 History (formulary)] Magnesium Hydroxide [Milk of 7,200 mg PO Q48H PRN 10/01/23 10/01/23 History Magnesia Concentrate] Na Phos,M-B/Na Phos,Di-Ba [Fleet 133 ml RECTAL DAILY PRN 10/01/23 10/01/23 History Adult] bisacodyL [Dulcolax] 10 mg RECTAL DAILY PRN 10/01/23 10/01/23 History cloZAPine [Clozapine] 200 mg PO HS@2100 10/01/23 10/01/23 History dexAMETHasone [Decadron] 4 mg PO DAILY@0800 10/01/23 10/01/23 History guaiFENesin [guaiFENesin ER] 600 mg PO BID@0800,2100 10/01/23 10/01/23 History predniSONE 10 mg PO DAILY@0800 10/01/23 10/01/23 History Allergies Allergy/AdvReac Type Severity Reaction Status Date / Time honey Allergy Unknown Verified 10/01/23 11:33 latex Allergy Unknown Verified 10/01/23 11:33 risperidone [From Risperdal] Allergy Unknown Verified 10/01/23 11:33 whey Allergy Unknown Verified 10/01/23 11:33 Physical Exam Vitals: Vital Signs Temp Pulse Pulse Resp BP BP Pulse Ox 10/01/23 14:30 90 22 95/46 98 10/01/23 14:10 90 21 95/46 97 10/01/23 14:00 92 22 105/47 96 10/01/23 13:30 93 20 105/53 96 10/01/23 13:24 99.9 F H 10/01/23 13:00 96 28 H 84/45 94 L 10/01/23 12:30 99 28 H 89/55 95 10/01/23 11:30 106 H 29 H 91/36 95 10/01/23 11:22 10/01/23 11:17 10/01/23 11:14 103 H 29 H 95 10/01/23 11:10 36 H 10/01/23 11:09 101.6 F H 105 H 32 H 91/56 98 FiO2 10/01/23 14:30 50 10/01/23 14:10 10/01/23 14:00 50 10/01/23 13:30 10/01/23 13:24 10/01/23 13:00 10/01/23 12:30 10/01/23 11:30 10/01/23 11:22 50 10/01/23 11:17 50 10/01/23 11:14 10/01/23 11:10 10/01/23 11:09 Intake and Output 09/30/23 10/01/23 10/01/23 22:59 06:59 14:59 Output Total 300 Balance -300 Output: Urine 300 Uretheral (Sena) 300 Other: Weight 113.398 kg Results CBC & Chem 7: 10/01/23 11:24 10/01/23 11:24 Labs: Abnormal Lab Results - Last 24 Hours (Table) 10/01/23 10/01/23 10/01/23 Range/Units 11:24 11:24 11:24 RBC 3.69 L (3.80-5.40) m/uL Hgb 11.1 L (11.4-16.0) gm/dL RDW 15.8 H (11.5-15.5) % Neutrophils # 7.8 H (1.3-7.7) k/uL ABG pCO2 (35-45) mmHg ABG pO2 (83-108) mmHg ABG HCO3 (21-25) mmol/L ABG Total CO2 (19-24) mmol/L VBG pCO2 (37-51) mmHg VBG HCO3 (24-28) mmol/L Carbon Dioxide 35 H (22-30) mmol/L Creatinine 0.50 L (0.52-1.04) mg/dL Glucose 180 H (74-99) mg/dL POC Glucose (mg/dL) (70-110) mg/dL Calcium 8.3 L (8.4-10.2) mg/dL Ammonia (<30) umol/L Total Protein 5.6 L (6.3-8.2) g/dL Albumin 3.3 L (3.5-5.0) g/dL Urine Appearance Slightly Cloudy H (Clear) Urine Protein 1+ H (Negative) Urine RBC 6 H (0-5) /hpf Urine WBC 27 H (0-5) /hpf Urine Bacteria Many H (None) /hpf Urine Mucus Few H (None) /hpf SARS-CoV-2 (PCR) (Not Detectd) 10/01/23 10/01/23 10/01/23 Range/Units 11:24 11:24 13:52 RBC (3.80-5.40) m/uL Hgb (11.4-16.0) gm/dL RDW (11.5-15.5) % Neutrophils # (1.3-7.7) k/uL ABG pCO2 55 H (35-45) mmHg ABG pO2 79 L (83-108) mmHg ABG HCO3 34 H (21-25) mmol/L ABG Total CO2 36 H (19-24) mmol/L VBG pCO2 55 H (37-51) mmHg VBG HCO3 34 H (24-28) mmol/L Carbon Dioxide (22-30) mmol/L Creatinine (0.52-1.04) mg/dL Glucose (74-99) mg/dL POC Glucose (mg/dL) (70-110) mg/dL Calcium (8.4-10.2) mg/dL Ammonia 42 H (<30) umol/L Total Protein (6.3-8.2) g/dL Albumin (3.5-5.0) g/dL Urine Appearance (Clear) Urine Protein (Negative) Urine RBC (0-5) /hpf Urine WBC (0-5) /hpf Urine Bacteria (None) /hpf Urine Mucus (None) /hpf SARS-CoV-2 (PCR) Detected A (Not Detectd) 10/01/23 Range/Units 14:12 RBC (3.80-5.40) m/uL Hgb (11.4-16.0) gm/dL RDW (11.5-15.5) % Neutrophils # (1.3-7.7) k/uL ABG pCO2 (35-45) mmHg ABG pO2 (83-108) mmHg ABG HCO3 (21-25) mmol/L ABG Total CO2 (19-24) mmol/L VBG pCO2 (37-51) mmHg VBG HCO3 (24-28) mmol/L Carbon Dioxide (22-30) mmol/L Creatinine (0.52-1.04) mg/dL Glucose (74-99) mg/dL POC Glucose (mg/dL) 220 H (70-110) mg/dL Calcium (8.4-10.2) mg/dL Ammonia (<30) umol/L Total Protein (6.3-8.2) g/dL Albumin (3.5-5.0) g/dL Urine Appearance (Clear) Urine Protein (Negative) Urine RBC (0-5) /hpf Urine WBC (0-5) /hpf Urine Bacteria (None) /hpf Urine Mucus (None) /hpf SARS-CoV-2 (PCR) (Not Detectd) Assessment and Plan Assessment: Assessment and plan * Acute on chronic hypoxic respiratory failure, with acute exacerbation of COPD * Covid 19 while pneumonia with severe acute respiratory distress syndrome * Acute metabolic encephalopathy with hypercapnia * Severe sepsis with septic shock * Diabetes mellitus type 2 * Hypertension * Hyperlipidemia * Lymphedema chronic lower extremity * Morbid obesity with BMI 42.9 * History of schizophrenia * In regards to acute hypoxic respiratory failure chest x-ray reviewed, patient is on BiPAP, FiO2 50%, continue patient on IV dexamethasone, pulmonary medicine and infectious disease consulted, continue breathing treatments, continue noninvasive ventilation. Patient is full code she does have a legal guardian [phone] * In regards to acute metabolic encephalopathy, CT brain negative, follow-up on serial blood gas, while on noninvasive ventilation probably medicine consulted, home medications including clozapine and Depakote placed on hold Depakote levels checked * In regards to severe sepsis/septic shock patient started on levo fed, patient given 2 L of fluid bolus continue maintenance hydration titrate off pressors as tolerated * In regards to history of hypertension, patient and shock continue to hold home regimen * In regards to severe sepsis, continue broad-spectrum antibiotic on IV Zosyn, probably medicine and infectious disease consulted * In regards to history of schizophrenia, Depakote and clozapine on hold secondary to altered mental status * CODE STATUS is full code Time with Patient: Greater than 30
--- NOTE | 2023-10-01 15:37 | CT ---
EXAMINATION TYPE: CT angio chest DATE OF EXAM: 10/01/2023 COMPARISON: CTA chest December 07, 2021 and February 26, 2020 HISTORY: respiratory failure CT DLP: 1027.9 mGycm. Automated Exposure Control for Dose Reduction was Utilized. CONTRAST: CTA scan of the thorax is performed with IV Contrast, patient injected with 100 mL of Isovue 370, pul monary embolism protocol. MIP Images are created on CT scanner and reviewed. FINDINGS: Exam suboptimal secondary to patient's large body habitus and inability to hold breath. LUNGS: Respiratory motion artifact makes evaluation suboptimal particularly for subcentimeter nodules . There is small left pleural effusion and left posterior basilar consolidation and/or atelectasis. D ependent atelectasis right lower lobe otherwise right lung is clear. Background moderate underlying e mphysematous changes are present. No pneumothorax seen bilaterally. MEDIASTINUM: There is suboptimal opacification of the pulmonary arteries with most dense contrast in the SVC. There is no large saddle pulmonary embolism. Cannot exclude segmental and subsegmental pulm onary emboli in this exam. There are no new greater than 1 cm hilar or mediastinal lymph nodes. Mild cardiomegaly. Tiny pericardial effusion. Enhancement of the thoracic aorta without aneurysm or dissec tion. OTHER: Single calcification in the hepatic dome is present. Scoliotic curvature in the spine is redem onstrated.. IMPRESSION: 1. Suboptimal study without central saddle pulmonary embolism. Cannot exclude clinically significant peripheral segmental and subsegmental acute pulmonary embolism on this exam. Consider repeat study in 24 hours after hydration if felt clinically warranted. 2. Tiny left pleural effusion with posterior left lower lung consolidation and/or atelectasis. Backgr ound moderate underlying emphysematous change redemonstrated.
--- NOTE | 2023-10-01 16:03 | P.CNPUL ---
History of Present Illness Consult date: 10/01/23 Reason for consult: dyspnea History of present illness: 63-year-old female patient, [facility] resident, known history of COPD with chronic hypoxic respiratory failure maintained on oxygen at 3 L per minute nasal cannula, morbidly obese with a body mass index of 42.9 in addition to chronic hypercapnic respiratory failure, presented to the MRSA protocol because of altered mental status and diminished level of consciousness. The patient is typically alert and oriented 2. There was no diminishment in her level of consciousness and is same time the patient was having respiratory distress. In the emergency, the patient was found to be hypoxic. The patient was placed on 100% nonrebreather facemask. Following that, the patient was placed on a BiPAP at a pressure of 12/6 with an FiO2 of 50%. Blood gas showed a pH of 7.4 with episodes of 55 and pO2 of 79. Chest x-ray was limited and there was some left basilar infiltration. Subsequently, the patient was given a CT angiogram that showed no evidence of any pulmonary embolism. There was tiny left-sided pleural effusion and left basilar consolidation with atelectasis. There is also background emphysema. The patient was given a total of 2 L of IV fluid bolus. Currently she is on norepinephrine at a low dose of 0.05 mcg/kg/m. The patient also received a dose of Zosyn in emergency department. CAT scan of the brain showed no acute process. It showed chronic atrophy. The viral screen was positive for Covid 19. This is her second infection. The patient was hospitalized back in 2021 for the same. Back then, she was Covid 19 positive. The patient had a white cell count of 10.3, hemoglobin of 11, normal coagulation profile, BUN of 12 with a creatinine of 0.5 and a sodium of 139. Troponins are negative. ProBNP is 399. UA was abnormal with 27 WBCs. Many bacteria. Review of Systems ROS unobtainable: due to mental status Past Medical History Past Medical History: COPD, Diabetes Mellitus, Hyperlipidemia, Hypertension Additional Past Medical History / Comment(s): Pt recently hospitalized at [facility] for bronchitis, NIDDM type II, O2 ATC now, FALLS, chronic bilateral lower extremity edema, constipation. History of Any Multi-Drug Resistant Organisms: None Reported Past Surgical History: Section Additional Past Surgical History / Comment(s): colonoscopy/benign polypectomy Past Anesthesia/Blood Transfusion Reactions: No Reported Reaction Past Psychological History: Schizophrenia Smoking Status: Current every day smoker Past Alcohol Use History: None Reported Past Drug Use History: None Reported - Past Family History family Family Medical History: Unable to Obtain Medications and Allergies Home Medications Medication Instructions Recorded Confirmed Type Ergocalciferol [Vitamin D2 50,000 unit PO SA@1700 09/02/19 10/01/23 History (DRISDOL)] Linagliptin [Tradjenta] 5 mg PO DAILY@0800 04/20/20 10/01/23 History Divalproex ER [Depakote ER] 1,500 mg PO HS@2100 04/12/21 10/01/23 History Ipratropium-Albuterol Nebulize 3 ml INHALATION RT-QID@,,,04/12/21 10/01/23 History [Duoneb 0.5 mg-3 mg/3 ml Soln] Albuterol Sulfate [Proair Hfa] 2 puff INHALATION RT-Q6H PRN 11/05/21 10/01/23 History Atorvastatin Calcium [Lipitor] 20 mg PO HS 11/05/21 10/01/23 History Budesonide-Formot 160-4.5 Mcg 2 puff INHALATION RT-BID@,11/05/21 10/01/23 History [Symbicort 160-4.5 Mcg Inhaler] metFORMIN HCL [Glucophage] 1,000 mg PO BID@0800,1700 11/05/21 10/01/23 History Acetaminophen [Tylenol] 500 mg PO Q6H PRN #0 11/16/21 10/01/23 Rx Ascorbic Acid [Vitamin C] 500 mg PO BID@0800,1700 12/07/21 10/01/23 History Aspirin 81 mg PO DAILY@0800 12/07/21 10/01/23 History Famotidine [Pepcid] 20 mg PO BID@0800,1700 12/07/21 10/01/23 History Rivaroxaban [Xarelto] 10 mg PO DAILY@0800 12/07/21 10/01/23 History Zinc Sulfate [Orazinc] 220 mg PO DAILY@1700 12/07/21 10/01/23 History Lactulose [Cephulac] 20 gm PO DAILY PRN ml 12/11/21 10/01/23 Rx Furosemide [Lasix] 20 mg PO DAILY@0800 10/01/23 10/01/23 History INSULIN ASPART (NovoLOG) [NovoLOG 7 unit SQ BID@0700,1630 10/01/23 10/01/23 History (formulary)] INSULIN ASPART (NovoLOG) [NovoLOG 10 unit SQ DAILY@1100 10/01/23 10/01/23 History (formulary)] INSULIN ASPART (NovoLOG) [NovoLOG See Protocol SQ AC-TID 10/01/23 10/01/23 History (formulary)] Magnesium Hydroxide [Milk of 7,200 mg PO Q48H PRN 10/01/23 10/01/23 History Magnesia Concentrate] Na Phos,M-B/Na Phos,Di-Ba [Fleet 133 ml RECTAL DAILY PRN 10/01/23 10/01/23 History Adult] bisacodyL [Dulcolax] 10 mg RECTAL DAILY PRN 10/01/23 10/01/23 History cloZAPine [Clozapine] 200 mg PO HS@2100 10/01/23 10/01/23 History dexAMETHasone [Decadron] 4 mg PO DAILY@0800 10/01/23 10/01/23 History guaiFENesin [guaiFENesin ER] 600 mg PO BID@0800,2100 10/01/23 10/01/23 History predniSONE 10 mg PO DAILY@0800 10/01/23 10/01/23 History Allergies Allergy/AdvReac Type Severity Reaction Status Date / Time honey Allergy Unknown Verified 10/01/23 11:33 latex Allergy Unknown Verified 10/01/23 11:33 risperidone [From Risperdal] Allergy Unknown Verified 10/01/23 11:33 whey Allergy Unknown Verified 10/01/23 11:33 Physical Exam Vitals: Vital Signs Temp Pulse Pulse Resp BP BP Pulse Ox 10/01/23 15:20 88 21 111/52 97 10/01/23 14:53 10/01/23 14:30 90 22 95/46 98 10/01/23 14:10 90 21 95/46 97 10/01/23 14:00 92 22 105/47 96 10/01/23 13:30 93 20 105/53 96 10/01/23 13:24 99.9 F H 10/01/23 13:00 96 28 H 84/45 94 L 10/01/23 12:30 99 28 H 89/55 95 10/01/23 11:30 106 H 29 H 91/36 95 10/01/23 11:22 10/01/23 11:17 10/01/23 11:14 103 H 29 H 95 10/01/23 11:10 36 H 10/01/23 11:09 101.6 F H 105 H 32 H 91/56 98 FiO2 10/01/23 15:20 10/01/23 14:53 50 10/01/23 14:30 50 10/01/23 14:10 10/01/23 14:00 50 10/01/23 13:30 10/01/23 13:24 10/01/23 13:00 10/01/23 12:30 10/01/23 11:30 10/01/23 11:22 50 10/01/23 11:17 50 10/01/23 11:14 10/01/23 11:10 10/01/23 11:09 Intake and Output 10/01/23 10/01/23 10/01/23 06:59 14:59 22:59 Output Total 300 Balance -300 Output: Urine 300 Uretheral (Sena) 300 Other: Weight 113.398 kg GENERAL EXAM: Lethargic, confused, currently on a BiPAP at a pressure of 12/6 with an FiO2 of 50% and mild degree of respiratory apparent distress. Morbidly obese with a body mass index of 42.9 HEAD: Normocephalic/atraumatic. EYES: Normal reaction of pupils, equal size. Conjunctiva pink, sclera white. NOSE: Clear with pink turbinates. THROAT: No erythema or exudates. NECK: No masses, no JVD, no thyroid enlargement, no adenopathy. CHEST: No chest wall deformity. Symmetrical expansion. Diminished breath sounds bilaterally especially in the lung bases LUNGS: Equal air entry with no crackles, wheeze, rhonchi or dullness. CVS: Regular rate and rhythm, normal S1 and S2, no gallops, no murmurs, no rubs ABDOMEN: Soft, nontender. No hepatosplenomegaly, normal bowel sounds, no guarding or rigidity. EXTREMITIES: No clubbing, no edema, no cyanosis, 2+ pulses and upper and lower extremities. MUSCULOSKELETAL: Muscle strength and tone normal. SPINE: No scoliosis or deformity SKIN: No rashes CENTRAL NERVOUS SYSTEM: Lethargic, somnolent, encephalopathic and responds only to painful stimulation. Unable to communicate. PSYCHIATRIC: Alert and oriented -2. Appropriate affect. Intact judgment and insight. Results - Laboratory Findings CBC and BMP: 10/01/23 11:24 10/01/23 11:24 ABG ABG pH 7.40 (7.35-7.45) 10/01/23 11:24 ABG pCO2 55 mmHg (35-45) H 10/01/23 11:24 ABG pO2 79 mmHg (83-108) L 10/01/23 11:24 ABG O2 Saturation 95.8 % (94-97) 10/01/23 11:24 PT/INR, D-dimer PT 10.1 sec (10.0-12.5) 10/01/23 11:24 INR 0.9 (<1.2) 10/01/23 11:24 Abnormal lab findings: Abnormal Labs 10/01/23 10/01/23 10/01/23 11:24 11:24 11:24 RBC 3.69 L Hgb 11.1 L RDW 15.8 H Neutrophils # 7.8 H ABG pCO2 ABG pO2 ABG HCO3 ABG Total CO2 VBG pCO2 VBG HCO3 Carbon Dioxide 35 H Creatinine 0.50 L Glucose 180 H POC Glucose (mg/dL) Calcium 8.3 L Ammonia Total Protein 5.6 L Albumin 3.3 L Urine Appearance Slightly Cloudy H Urine Protein 1+ H Urine RBC 6 H Urine WBC 27 H Urine Bacteria Many H Urine Mucus Few H SARS-CoV-2 (PCR) 10/01/23 10/01/23 10/01/23 11:24 11:24 13:52 RBC Hgb RDW Neutrophils # ABG pCO2 55 H ABG pO2 79 L ABG HCO3 34 H ABG Total CO2 36 H VBG pCO2 55 H VBG HCO3 34 H Carbon Dioxide Creatinine Glucose POC Glucose (mg/dL) Calcium Ammonia 42 H Total Protein Albumin Urine Appearance Urine Protein Urine RBC Urine WBC Urine Bacteria Urine Mucus SARS-CoV-2 (PCR) Detected A 10/01/23 14:12 RBC Hgb RDW Neutrophils # ABG pCO2 ABG pO2 ABG HCO3 ABG Total CO2 VBG pCO2 VBG HCO3 Carbon Dioxide Creatinine Glucose POC Glucose (mg/dL) 220 H Calcium Ammonia Total Protein Albumin Urine Appearance Urine Protein Urine RBC Urine WBC Urine Bacteria Urine Mucus SARS-CoV-2 (PCR) - Diagnostic Findings Chest x-ray: image reviewed CT scan - chest: image reviewed Assessment and Plan Plan: Acute hypoxic respiratory failure, multifactorial. The patient is known to have COPD in addition to that the patient has developed an acute Covid 19 infection. There is a left lower lobe consolidation with atelectasis pleural effusion, consider underlying bacterial pneumonia. Pulmonary embolism is felt to be less likely. Currently on BiPAP and the patient's acid base status is well compensated. Acute Covid 19 infection. Second infection and initial infection was back in 2021. Vaccination status is not known. Her previous infection was in October 2021 Altered mentation, acute on top of chronic. The patient has based on limitation mentation as the patient has chronic cognitive impairment of schizophrenia Acute hypotension, likely hypovolemic currently on low-dose norepinephrine. Given a total of 2 L of IV fluids Morbid obesity with a BMI of 42.9 Chronic hypoxic and hypercapnic respiratory failure, typically admitted on oxygen at 2 L/m nasal cannula Chronic lower extremity edema Diabetes mellitus type 2 Hypertension Hyperlipidemia Impairment baseline performance of functional status and the patient is a [facility] resident with a full CODE STATUS. She is a legal guardian Plan Continue BiPAP for now Establish a triple-lumen catheter Given a total of 2 L of IV fluids. We'll start her on a maintenance fluid rate of 100 mL an hour of normal saline Continue IV Zosyn Start patient Decadron 6 mg IV every 24 hours Monitor blood gases Keep the patient nothing by mouth for now Lovenox 40 mg subcu portably prophylaxis IV Protonix Patient has maintain on 10 mg of xarelto on outpatient basis. The exact cause is not clear. We'll check d-dimer is We'll check lower extremity Dopplers Condition is critical and we'll continue to follow Time with Patient: Greater than 30
--- NOTE | 2023-10-01 16:05 | P.PCN ---
Date of Procedure: 10/01/23 Operative Findings: Preoperative Diagnosis: Acute COPD exacerbation with respiratory failure Postoperative Diagnosis: Same Procedure(s) Performed: central line insertion Anesthesia: local Surgeon: Amilcar Burrell Estimated Blood Loss (ml): 0 Pathology: none sent Condition: critical Disposition: ICU Operative Findings: Indication: Hemodynamic monitoring/Intravenous access. A time-out was completed verifying correct patient, procedure, site, positioning, and implant(s) or special equipment if applicable. The patient was placed in a dependent position appropriate for central line placement based on the vein to be cannulated. The patients neck was prepped and draped in sterile fashion. 1% Lidocaine was used to anesthetize the surrounding skin area. A triple lumen 9F Cordis catheter was introduced into the left IJ vein using Seldinger technique. The catheter was threaded smoothly over the guide wire and appropriate blood return was obtained. Each lumen of the catheter was evacuated of air and flushed with sterile saline. The catheter was then sutured in place to the skin and a sterile dressing applied. Perfusion to the extremity distal to the point of catheter insertion was checked and found to be adequate. The patient tolerated the procedure well and there were no complications.
[2023-10-01 16:08] LABS: Glucose,Whole Blood 213 mg/dL (70-110)
--- NOTE | 2023-10-01 16:10 | XR ---
EXAMINATION TYPE: XR chest 1V confirm line placement DATE OF EXAM: 10/01/2023 CLINICAL HISTORY: Line placement. TECHNIQUE: Single AP portable semi-upright view of the chest is obtained. COMPARISON: CT from earlier today. FINDINGS: No left-sided pneumothorax after central line placement. There is new left internal jugula r central venous catheter coursing superiorly towards the right brachiocephalic vein. Persistent left basilar opacity. Background chronic emphysematous change. Cardiac silhouette size upper limits of no rmal. IMPRESSION: As above. Advise repositioning of catheter tip.
[2023-10-01] MEDS ORDERED: FAMOTIDINE 20 MG TAB PO SCH (17:00)
[2023-10-01] MEDS: SODIUM CHLORIDE 0.9% 1,000 ML IV SCH (17:30)
[2023-10-01 20:04] LABS: Glucose,Whole Blood 229 mg/dL (70-110)
[2023-10-01] MEDS: ATORVASTATIN 20 MG TAB PO SCH (20:47)
[2023-10-01] MEDS: guaiFENesin 600 MG TABLET.ER PO SCH (20:47)
[2023-10-01] MEDS ORDERED: DIVALPROEX ER 500 MG TAB.ER.24H PO SCH (21:00)
[2023-10-01] MEDS ORDERED: CLOZAPINE 200 MG PO SCH (21:00)
[2023-10-01 21:22] LABS: Glucose,Whole Blood 233 mg/dL (70-110)
[2023-10-01] MEDS: PIPERACILLIN-TAZOBACTAM 3.375 GM in SODIUM CHLORIDE 0.9% 100 ML IVPB SCH (21:27)
[2023-10-01] MEDS: FAMOTIDINE 20 MG/2 ML VIAL IV SCH (21:27)
[2023-10-01 23:34] LABS: Glucose,Whole Blood 229 mg/dL (70-110)
[2023-10-02] MEDS: NOREPINEPHRINE 4 MG in SODIUM CHLORIDE 0.9% 250 ML IV ONE (01:07)
[2023-10-02 01:47] LABS: Glucose,Whole Blood 245 mg/dL (70-110)
[2023-10-02] MEDS: INSULIN ASPART (NovoLOG) 100 UNIT/ML VIAL SQ SCH ×5 (02:07→21:40)
[2023-10-02 03:59] LABS: Glucose,Whole Blood 220 mg/dL (70-110)
[2023-10-02 05:11] LABS: Basophils % (A) 0 %; Eosinophils % (A) 0 %; HCT 31.7 % (34.0-46.0); HGB 10.3 gm/dL (11.4-16.0); Hypochromasia Slight; Lymphocytes # (A) 0.8 k/uL (1.0-4.8); Lymphocytes % (A) 8 %; MCH 30.2 pg (25.0-35.0); MCHC 32.5 g/dL (31.0-37.0); MCV 93.1 fL (80.0-100.0); Monocytes # (A) 0.5 k/uL (0-1.0); Monocytes % (A) 6 %; Neutrophils # (A) 7.8 k/uL (1.3-7.7); Neutrophils % (A) 85 %; Platelet Count 163 k/uL (150-450); RBC 3.41 m/uL (3.80-5.40); RDW 15.6 % (11.5-15.5); WBC 9.2 k/uL (3.8-10.6)
[2023-10-02] MEDS: PIPERACILLIN-TAZOBACTAM 3.375 GM in SODIUM CHLORIDE 0.9% 100 ML IVPB SCH ×3 (05:28→21:40)
[2023-10-02] MEDS: SODIUM CHLORIDE 0.9% 1,000 ML IV SCH ×2 (05:29→11:16)
[2023-10-02 05:38] LABS: ALT 10 U/L (4-34); AST 13 U/L (14-36); African American GFR (CKD) >90 (>60 ml/min/1.73 sqM); Albumin 2.9 g/dL (3.5-5.0); Alkaline Phosphatase 60 U/L (38-126); Anion Gap 5 mmol/L; Blood Urea Nitrogen 14 mg/dL (7-17); Carbon Dioxide 31 mmol/L (22-30); Chloride 103 mmol/L (98-107); Glucose 218 mg/dL (74-99); Non-African American GFR(CKD) >90 (>60 ml/min/1.73 sqM); Sodium 139 mmol/L (137-145); Total Bilirubin 0.5 mg/dL (0.2-1.3); Total Protein 5.2 g/dL (6.3-8.2)
[2023-10-02 06:10] LABS: Glucose,Whole Blood 228 mg/dL (70-110)
[2023-10-02 06:33] LABS: C Reactive Protein 30.4 mg/dL (<1.0)
--- NOTE | 2023-10-02 07:26 | XR ---
EXAMINATION TYPE: XR chest 1V portable DATE OF EXAM: 10/02/2023 CLINICAL HISTORY: Difficulty breathing progress study. Left lower lobe infiltrate. TECHNIQUE: Single AP portable supine view of the chest is obtained. COMPARISON: Chest x-ray and CT chest from one day earlier FINDINGS: Stable malpositioned left internal jugular central venous catheter. Persistent left basila r opacity. Cardiac silhouette size is stable and upper limits of normal. Right lung remains grossly c lear. Osseous structures are intact. IMPRESSION: Persistent left basilar acute infiltrate and/or atelectasis. No significant change from o ne day earlier.
[2023-10-02] MEDS: FAMOTIDINE 20 MG/2 ML VIAL IV SCH ×2 (08:33→21:40)
[2023-10-02] MEDS: DEXAMETHASONE SOD PHOSPHATE 10 MG/ML 1 ML VIAL IV SCH (08:33)
[2023-10-02] MEDS: guaiFENesin 600 MG TABLET.ER PO SCH ×2 (08:33→21:39)
[2023-10-02] MEDS: ASPIRIN 81 MG PO SCH (08:33)
--- NOTE | 2023-10-02 09:11 | P.CONS ---
History of Present Illness - Reason for Consult Consult date: 10/01/23 Sepsis, covid Requesting physician: Reji Ortega - Chief Complaint Mental status changes and difficulty breathing X 1 day - History of Present Illness Patient is a 63-year-old female with a past medical history negative for diabetes mellitus hypertension hyperlipidemia COPD resident of [facility] patient was sent to the ER for evaluation of altered mentation and respiratory failure nursing staff reported to the EMS the patient having respiratory symptoms for about 3 days she was found to be hypoxic in the morning of presentation hospital for which EMS was calling on arrival of the EMS the patient was noted to be hypoxic with O2 sats of 80% she has been tested positive for COVID at the nursing facility on arrival to the ER the patient did have a fever of 101.6 F patient was tachycardic and hypoxic requiring requiring supplemental oxygen did currently on BiPAP patient did have a white count of 10.3 with a left shift creatinine was 0.50 liver enzymes normal CRP 30.4 urine has been mildly positive patient did test positive for COVID-19 influenza RSV was negative patient did have a chest x-ray chronic changes without new acute pulmonary infiltrate clearly seen patient also have a CT angiogram of the chest suboptimal study without central saddle pulmonary embolism there is left posterior basal consolidation patient has been admitted to the ICU started on dexamethasone in addition to Zosyn infectious he was consulted for further management most information has been obtained from reviewing the chart talking nursing staff and the patient is currently on BiPAP lethargic and cannot provide any history Review of Systems Positive points has been mentioned in HPI complete review could not be obtained because of his underlying mental status Past Medical History Past Medical History: COPD, Diabetes Mellitus, Hyperlipidemia, Hypertension Additional Past Medical History / Comment(s): Pt recently hospitalized at [facility] for bronchitis, NIDDM type II, O2 ATC now, FALLS, chronic bilateral lower extremity edema, constipation. History of Any Multi-Drug Resistant Organisms: None Reported Past Surgical History: Section Additional Past Surgical History / Comment(s): colonoscopy/benign polypectomy Past Anesthesia/Blood Transfusion Reactions: No Reported Reaction Smoking Status: Current every day smoker - Past Family History family Family Medical History: Unable to Obtain Medications and Allergies Home Medications Medication Instructions Recorded Confirmed Type Ergocalciferol [Vitamin D2 50,000 unit PO SA@1700 09/02/19 10/01/23 History (DRISDOL)] Linagliptin [Tradjenta] 5 mg PO DAILY@0800 04/20/20 10/01/23 History Ipratropium-Albuterol Nebulize 3 ml INHALATION RT-QID@,,,04/12/21 10/01/23 History [Duoneb 0.5 mg-3 mg/3 ml Soln] Albuterol Sulfate [Proair Hfa] 2 puff INHALATION RT-Q6H PRN 11/05/21 10/01/23 History Atorvastatin Calcium [Lipitor] 20 mg PO HS 11/05/21 10/01/23 History Budesonide-Formot 160-4.5 Mcg 2 puff INHALATION RT-BID@,11/05/21 10/01/23 History [Symbicort 160-4.5 Mcg Inhaler] metFORMIN HCL [Glucophage] 1,000 mg PO BID@0800,1700 11/05/21 10/01/23 History Acetaminophen [Tylenol] 500 mg PO Q6H PRN #0 11/16/21 10/01/23 Rx Ascorbic Acid [Vitamin C] 500 mg PO BID@0800,1700 12/07/21 10/01/23 History Aspirin 81 mg PO DAILY@0800 12/07/21 10/01/23 History Famotidine [Pepcid] 20 mg PO BID@0800,1700 12/07/21 10/01/23 History Rivaroxaban [Xarelto] 10 mg PO DAILY@0800 12/07/21 10/01/23 History Zinc Sulfate [Orazinc] 220 mg PO DAILY@1700 12/07/21 10/01/23 History Lactulose [Cephulac] 20 gm PO DAILY PRN ml 12/11/21 10/01/23 Rx Furosemide [Lasix] 20 mg PO DAILY@0800 10/01/23 10/01/23 History INSULIN ASPART (NovoLOG) [NovoLOG 7 unit SQ BID@0700,1630 10/01/23 10/01/23 History (formulary)] INSULIN ASPART (NovoLOG) [NovoLOG 10 unit SQ DAILY@1100 10/01/23 10/01/23 History (formulary)] INSULIN ASPART (NovoLOG) [NovoLOG See Protocol SQ AC-TID 10/01/23 10/01/23 History (formulary)] Magnesium Hydroxide [Milk of 7,200 mg PO Q48H PRN 10/01/23 10/01/23 History Magnesia Concentrate] Na Phos,M-B/Na Phos,Di-Ba [Fleet 133 ml RECTAL DAILY PRN 10/01/23 10/01/23 History Adult] bisacodyL [Dulcolax] 10 mg RECTAL DAILY PRN 10/01/23 10/01/23 History cloZAPine [Clozaril] 200 mg PO HS@2100 10/01/23 10/01/23 History predniSONE 10 mg PO DAILY@0800 10/01/23 10/01/23 History Amoxic-Pot Clav 875-125Mg 1 tab PO Q12HR 5 Days #10 tab 10/07/23 Rx [Augmentin 875-125] Divalproex [Depakote] 500 mg PO DAILY #15 tab 10/07/23 Rx Divalproex [Depakote] 750 mg PO HS #15 tab 10/07/23 Rx Insulin Detemir (Levemir) [Levemir] 10 unit SQ DAILY@0700 each 10/07/23 Rx dexAMETHasone [Decadron] 4 mg PO DAILY@0800 4 Days #4 10/07/23 10/01/23 Rx Allergies Allergy/AdvReac Type Severity Reaction Status Date / Time honey Allergy Unknown Verified 10/01/23 11:33 latex Allergy Unknown Verified 10/01/23 11:33 risperidone [From Risperdal] Allergy Unknown Verified 10/01/23 11:33 whey Allergy Unknown Verified 10/01/23 11:33 Physical Exam Vitals: Vital Signs Temp Pulse Pulse Resp BP BP Pulse Ox 10/01/23 16:30 92 22 108/55 90 L 10/01/23 16:15 87 20 109/53 94 L 10/01/23 16:00 87 25 H 120/63 96 10/01/23 15:45 93 31 H 96 10/01/23 15:33 98.5 F 87 14 97 10/01/23 15:20 88 21 111/52 97 10/01/23 14:53 10/01/23 14:30 90 22 95/46 98 10/01/23 14:10 90 21 95/46 97 10/01/23 14:00 92 22 105/47 96 10/01/23 13:30 93 20 105/53 96 10/01/23 13:24 99.9 F H 10/01/23 13:00 96 28 H 84/45 94 L 10/01/23 12:30 99 28 H 89/55 95 10/01/23 11:30 106 H 29 H 91/36 95 10/01/23 11:22 10/01/23 11:17 10/01/23 11:14 103 H 29 H 95 10/01/23 11:10 36 H 10/01/23 11:09 101.6 F H 105 H 32 H 91/56 98 FiO2 10/01/23 16:30 50 10/01/23 16:15 50 10/01/23 16:00 50 10/01/23 15:45 50 10/01/23 15:33 50 10/01/23 15:20 10/01/23 14:53 50 10/01/23 14:30 50 10/01/23 14:10 10/01/23 14:00 50 10/01/23 13:30 10/01/23 13:24 10/01/23 13:00 10/01/23 12:30 10/01/23 11:30 10/01/23 11:22 50 10/01/23 11:17 50 10/01/23 11:14 10/01/23 11:10 10/01/23 11:09 Intake and Output 10/01/23 10/01/23 10/01/23 06:59 14:59 22:59 Output Total 300 Balance -300 Output: Urine 300 Uretheral (Sena) 300 Other: Weight 113.398 kg 113.398 kg GENERAL DESCRIPTION: Middle-aged female lying in bed, mild distress. No t achypnea or accessory muscle of respiration use. HEENT: Shows Pallor , no scleral icterus. Oral mucous membrane is dry. NECK: Trachea central, no thyromegaly. LUNGS: Unlabored breathing. Coarse breath sounds bilaterally HEART: S1, S2, regular rate and rhythm. No loud murmur ABDOMEN: Soft, no tenderness , guarding or rigidity, no organomegaly EXTREMITIES: No edema of feet. SKIN: No rash, no masses palpable. NEUROLOGICAL: The patient is lethargic orientation could not be determined Results CBC & Chem 7: 10/05/23 05:55 10/05/23 05:55 Labs: Abnormal Lab Results - Last 24 Hours (Table) 10/01/23 10/01/23 10/01/23 Range/Units 11:24 11:24 11:24 RBC 3.69 L (3.80-5.40) m/uL Hgb 11.1 L (11.4-16.0) gm/dL RDW 15.8 H (11.5-15.5) % Neutrophils # 7.8 H (1.3-7.7) k/uL ABG pCO2 (35-45) mmHg ABG pO2 (83-108) mmHg ABG HCO3 (21-25) mmol/L ABG Total CO2 (19-24) mmol/L VBG pCO2 (37-51) mmHg VBG HCO3 (24-28) mmol/L Carbon Dioxide 35 H (22-30) mmol/L Creatinine 0.50 L (0.52-1.04) mg/dL Glucose 180 H (74-99) mg/dL POC Glucose (mg/dL) (70-110) mg/dL Calcium 8.3 L (8.4-10.2) mg/dL Ammonia (<30) umol/L Total Protein 5.6 L (6.3-8.2) g/dL Albumin 3.3 L (3.5-5.0) g/dL Urine Appearance Slightly Cloudy H (Clear) Urine Protein 1+ H (Negative) Urine RBC 6 H (0-5) /hpf Urine WBC 27 H (0-5) /hpf Urine Bacteria Many H (None) /hpf Urine Mucus Few H (None) /hpf SARS-CoV-2 (PCR) (Not Detectd) 10/01/23 10/01/23 10/01/23 Range/Units 11:24 11:24 13:52 RBC (3.80-5.40) m/uL Hgb (11.4-16.0) gm/dL RDW (11.5-15.5) % Neutrophils # (1.3-7.7) k/uL ABG pCO2 55 H (35-45) mmHg ABG pO2 79 L (83-108) mmHg ABG HCO3 34 H (21-25) mmol/L ABG Total CO2 36 H (19-24) mmol/L VBG pCO2 55 H (37-51) mmHg VBG HCO3 34 H (24-28) mmol/L Carbon Dioxide (22-30) mmol/L Creatinine (0.52-1.04) mg/dL Glucose (74-99) mg/dL POC Glucose (mg/dL) (70-110) mg/dL Calcium (8.4-10.2) mg/dL Ammonia 42 H (<30) umol/L Total Protein (6.3-8.2) g/dL Albumin (3.5-5.0) g/dL Urine Appearance (Clear) Urine Protein (Negative) Urine RBC (0-5) /hpf Urine WBC (0-5) /hpf Urine Bacteria (None) /hpf Urine Mucus (None) /hpf SARS-CoV-2 (PCR) Detected A (Not Detectd) 10/01/23 10/01/23 Range/Units 14:12 16:05 RBC (3.80-5.40) m/uL Hgb (11.4-16.0) gm/dL RDW (11.5-15.5) % Neutrophils # (1.3-7.7) k/uL ABG pCO2 (35-45) mmHg ABG pO2 (83-108) mmHg ABG HCO3 (21-25) mmol/L ABG Total CO2 (19-24) mmol/L VBG pCO2 (37-51) mmHg VBG HCO3 (24-28) mmol/L Carbon Dioxide (22-30) mmol/L Creatinine (0.52-1.04) mg/dL Glucose (74-99) mg/dL POC Glucose (mg/dL) 220 H 213 H (70-110) mg/dL Calcium (8.4-10.2) mg/dL Ammonia (<30) umol/L Total Protein (6.3-8.2) g/dL Albumin (3.5-5.0) g/dL Urine Appearance (Clear) Urine Protein (Negative) Urine RBC (0-5) /hpf Urine WBC (0-5) /hpf Urine Bacteria (None) /hpf Urine Mucus (None) /hpf SARS-CoV-2 (PCR) (Not Detectd) Assessment and Plan (1) Sepsis Status: Acute Code(s): A41.9 - SEPSIS, UNSPECIFIED ORGANISM SNOMED Code(s): 42443813 (2) COVID-19 Status: Acute Code(s): U07.1 - COVID-19 SNOMED Code(s): 200171744 (3) Pneumonia Status: Acute Code(s): J18.9 - PNEUMONIA, UNSPECIFIED ORGANISM SNOMED Code(s): 028044281 Plan: 1patient was in the hospital with sepsis in this patient who did have a fever tachycardia source likely acute COVID-19 infection and concern for possible left basilar secondary bacterial pneumonia in this patient who is care home resident we will need to cover for the gram-negative's pathogen 2try to obtain a sputum for Gram stain and culture 3we will obtain procalcitonin 4continue the patient on Zosyn along with the dexamethasone and respiratory support per pulmonary 5droplet isolation We will follow on clinical condition and cultures to further adjust medication if needed Thank you for this consultation we will follow the patient along with you Dictation was produced using [employer] dictation software. please excuse any grammatical, word or spelling errors. Time with Patient: Greater than 30
--- NOTE | 2023-10-02 09:48 | P.PN ---
Subjective Progress Note Date: 10/02/23 63-year-old female patient, snf resident, known history of COPD with chronic hypoxic respiratory failure maintained on oxygen at 3 L per minute nasal cannula, morbidly obese with a body mass index of 42.9 in addition to chronic hypercapnic respiratory failure, presented to the MRSA protocol because of altered mental status and diminished level of consciousness. The patient is typically alert and oriented 2. There was no diminishment in her level of consciousness and is same time the patient was having respiratory distress. In the emergency, the patient was found to be hypoxic. The patient was placed on 100% nonrebreather facemask. Following that, the patient was placed on a BiPAP at a pressure of 12/6 with an FiO2 of 50%. Blood gas showed a pH of 7.4 with episodes of 55 and pO2 of 79. Chest x-ray was limited and there was some left basilar infiltration. Subsequently, the patient was given a CT angiogram that showed no evidence of any pulmonary embolism. There was tiny left-sided pleural effusion and left basilar consolidation with atelectasis. There is also background emphysema. The patient was given a total of 2 L of IV fluid bolus. Currently she is on norepinephrine at a low dose of 0.05 mcg/kg/m. The patient also received a dose of Zosyn in emergency department. CAT scan of the brain showed no acute process. It showed chronic atrophy. The viral screen was positive for Covid 19. This is her second infection. The patient was hospitalized back in 2021 for the same. Back then, she was Covid 19 positive. The patient had a white cell count of 10.3, hemoglobin of 11, normal coagulation profile, BUN of 12 with a creatinine of 0.5 and a sodium of 139. Troponins are negative. ProBNP is 399. UA was abnormal with 27 WBCs. Many bacteria. On today's evaluation of 10/02/2023, seeing the patient for a follow-up. Seems to be more awake and alert compared to yesterday. The patient is following simple commands. She is able to move all 4 extremities upon command. She is on a BiPAP at a pressure of 12 over his centimeters of water and FiO2 has been dropped onto 40%. Chest x-ray remains unchanged and there is some limited left lower lobe consolidation and the patient is currently on steroids regarding her Covid 19 infection and she is also on IV Zosyn regarding possibility of a pneumonia/aspiration of the left lower lobe. She received a total of 2 L of fluid bolus yesterday currently IV fluids are running at 100 mL an hour. She is normotensive. She is on no pressors. Her blood work today shows a BUN of 14 with a creatinine of 0.35, sodium level is at 139 with a potassium of 4.0. Serum bicarb is at 31. The white cell count is at 9.2 with a hemoglobin of 10.3 and a platelet count of 163. LFTs are essentially within normal limits. Her CRP level was 30. Had hemoglobin A1c is at X.7. She is able to tolerate the BiPAP without having any major difficulties speech is on Decadron 6 mg IV every 24 hours. She is currently off pressors. She is on NovoLog sliding scale coverage. She is also on Lovenox for DVT prophylaxis. D-dimer is are pending. Doppler of the lower extremity is also pending. She may need to go back on his psychotropic medication including clozapine 20 mg at bedtime. She'll be also started back on her Depakote 1.5 g at bedtime. Note that the patient takes prednisone on outpatient basis a dose of 10 mg by mouth daily on a daily basis. She has been maintained also on low-dose anticoagulation/ xarelto , the exact cause for that is not known. Objective - Vital Signs Vital signs: Vital Signs Temp 97.6 F 10/02/23 04:00 Pulse 88 10/02/23 09:30 Resp 18 10/02/23 09:30 BP 98/69 10/02/23 09:30 Pulse Ox 96 10/02/23 09:30 FiO2 40 10/02/23 09:30 Intake & Output 10/01/23 10/02/23 10/02/23 18:59 06:59 18:59 Intake Total 325.85 1599.961 279.639 Output Total 1000 930 80 Balance -674.15 669.961 199.639 Weight 113.398 kg 126 kg Intake: Intake, IV Titration 325.85 1599.961 279.639 Amount Norepinephrine 4 mg In 25.85 399.961 79.639 Sodium Chloride 0.9% 250 ml @ 0.03 MCG/KG/MIN 12. 961 mls/hr IV .[id number] [facility] Rx#:[id number] Sodium Chloride 0.9% 1, 300 1200 200 000 ml @ 100 mls/hr IV . Q10H [facility] Rx#:[id number] Output: Urine 1000 930 80 Uretheral (Sena) 300 Other: Voiding Method Indwelling Catheter Indwelling Catheter - Exam GENERAL EXAM: Lethargic, confused, currently on a BiPAP at a pressure of 12/6 with an FiO2 of 40% no respiratory distress. Morbidly obese with a body mass index of 42.9 HEAD: Normocephalic/atraumatic. EYES: Normal reaction of pupils, equal size. Conjunctiva pink, sclera white. NOSE: Clear with pink turbinates. THROAT: No erythema or exudates. NECK: No masses, no JVD, no thyroid enlargement, no adenopathy. CHEST: No chest wall deformity. Symmetrical expansion. Diminished breath sounds bilaterally especially in the lung bases LUNGS: Equal air entry with no crackles, wheeze, rhonchi or dullness. CVS: Regular rate and rhythm, normal S1 and S2, no gallops, no murmurs, no rubs ABDOMEN: Soft, nontender. No hepatosplenomegaly, normal bowel sounds, no guarding or rigidity. EXTREMITIES: No clubbing, no edema, no cyanosis, 2+ pulses and upper and lower extremities. MUSCULOSKELETAL: Muscle strength and tone normal. SPINE: No scoliosis or deformity SKIN: No rashes CENTRAL NERVOUS SYSTEM: Awake and communicating at this point in time, moving all 4 extremities PSYCHIATRIC: Alert and oriented -2. Appropriate affect. Intact judgment and insight. - Labs CBC & Chem 7: 10/02/23 04:49 10/02/23 04:49 Labs: Abnormal Lab Results - Last 24 Hours (Table) 10/01/23 10/01/23 10/01/23 Range/Units 11:24 11:24 11:24 RBC 3.69 L (3.80-5.40) m/uL Hgb 11.1 L (11.4-16.0) gm/dL Hct (34.0-46.0) % RDW 15.8 H (11.5-15.5) % Neutrophils # 7.8 H (1.3-7.7) k/uL Lymphocytes # (1.0-4.8) k/uL ABG pCO2 (35-45) mmHg ABG pO2 (83-108) mmHg ABG HCO3 (21-25) mmol/L ABG Total CO2 (19-24) mmol/L VBG pCO2 (37-51) mmHg VBG HCO3 (24-28) mmol/L Carbon Dioxide 35 H (22-30) mmol/L Creatinine 0.50 L (0.52-1.04) mg/dL Glucose 180 H (74-99) mg/dL POC Glucose (mg/dL) (70-110) mg/dL Hemoglobin A1c (<=6.0) % Calcium 8.3 L (8.4-10.2) mg/dL AST (14-36) U/L Ammonia (<30) umol/L C-Reactive Protein (<1.0) mg/dL Total Protein 5.6 L (6.3-8.2) g/dL Albumin 3.3 L (3.5-5.0) g/dL Urine Appearance Slightly Cloudy H (Clear) Urine Protein 1+ H (Negative) Urine RBC 6 H (0-5) /hpf Urine WBC 27 H (0-5) /hpf Urine Bacteria Many H (None) /hpf Urine Mucus Few H (None) /hpf SARS-CoV-2 (PCR) (Not Detectd) 10/01/23 10/01/23 10/01/23 Range/Units 11:24 11:24 13:52 RBC (3.80-5.40) m/uL Hgb (11.4-16.0) gm/dL Hct (34.0-46.0) % RDW (11.5-15.5) % Neutrophils # (1.3-7.7) k/uL Lymphocytes # (1.0-4.8) k/uL ABG pCO2 55 H (35-45) mmHg ABG pO2 79 L (83-108) mmHg ABG HCO3 34 H (21-25) mmol/L ABG Total CO2 36 H (19-24) mmol/L VBG pCO2 55 H (37-51) mmHg VBG HCO3 34 H (24-28) mmol/L Carbon Dioxide (22-30) mmol/L Creatinine (0.52-1.04) mg/dL Glucose (74-99) mg/dL POC Glucose (mg/dL) (70-110) mg/dL Hemoglobin A1c (<=6.0) % Calcium (8.4-10.2) mg/dL AST (14-36) U/L Ammonia 42 H (<30) umol/L C-Reactive Protein (<1.0) mg/dL Total Protein (6.3-8.2) g/dL Albumin (3.5-5.0) g/dL Urine Appearance (Clear) Urine Protein (Negative) Urine RBC (0-5) /hpf Urine WBC (0-5) /hpf Urine Bacteria (None) /hpf Urine Mucus (None) /hpf SARS-CoV-2 (PCR) Detected A (Not Detectd) 10/01/23 10/01/23 10/01/23 Range/Units 14:12 16:05 20:02 RBC (3.80-5.40) m/uL Hgb (11.4-16.0) gm/dL Hct (34.0-46.0) % RDW (11.5-15.5) % Neutrophils # (1.3-7.7) k/uL Lymphocytes # (1.0-4.8) k/uL ABG pCO2 (35-45) mmHg ABG pO2 (83-108) mmHg ABG HCO3 (21-25) mmol/L ABG Total CO2 (19-24) mmol/L VBG pCO2 (37-51) mmHg VBG HCO3 (24-28) mmol/L Carbon Dioxide (22-30) mmol/L Creatinine (0.52-1.04) mg/dL Glucose (74-99) mg/dL POC Glucose (mg/dL) 220 H 213 H 229 H (70-110) mg/dL Hemoglobin A1c (<=6.0) % Calcium (8.4-10.2) mg/dL AST (14-36) U/L Ammonia (<30) umol/L C-Reactive Protein (<1.0) mg/dL Total Protein (6.3-8.2) g/dL Albumin (3.5-5.0) g/dL Urine Appearance (Clear) Urine Protein (Negative) Urine RBC (0-5) /hpf Urine WBC (0-5) /hpf Urine Bacteria (None) /hpf Urine Mucus (None) /hpf SARS-CoV-2 (PCR) (Not Detectd) 10/01/23 10/01/23 10/02/23 Range/Units 21:20 23:33 01:45 RBC (3.80-5.40) m/uL Hgb (11.4-16.0) gm/dL Hct (34.0-46.0) % RDW (11.5-15.5) % Neutrophils # (1.3-7.7) k/uL Lymphocytes # (1.0-4.8) k/uL ABG pCO2 (35-45) mmHg ABG pO2 (83-108) mmHg ABG HCO3 (21-25) mmol/L ABG Total CO2 (19-24) mmol/L VBG pCO2 (37-51) mmHg VBG HCO3 (24-28) mmol/L Carbon Dioxide (22-30) mmol/L Creatinine (0.52-1.04) mg/dL Glucose (74-99) mg/dL POC Glucose (mg/dL) 233 H 229 H 245 H (70-110) mg/dL Hemoglobin A1c (<=6.0) % Calcium (8.4-10.2) mg/dL AST (14-36) U/L Ammonia (<30) umol/L C-Reactive Protein (<1.0) mg/dL Total Protein (6.3-8.2) g/dL Albumin (3.5-5.0) g/dL Urine Appearance (Clear) Urine Protein (Negative) Urine RBC (0-5) /hpf Urine WBC (0-5) /hpf Urine Bacteria (None) /hpf Urine Mucus (None) /hpf SARS-CoV-2 (PCR) (Not Detectd) 10/02/23 10/02/23 10/02/23 Range/Units 03:56 04:49 04:49 RBC 3.41 L (3.80-5.40) m/uL Hgb 10.3 L (11.4-16.0) gm/dL Hct 31.7 L (34.0-46.0) % RDW 15.6 H (11.5-15.5) % Neutrophils # 7.8 H (1.3-7.7) k/uL Lymphocytes # 0.8 L (1.0-4.8) k/uL ABG pCO2 (35-45) mmHg ABG pO2 (83-108) mmHg ABG HCO3 (21-25) mmol/L ABG Total CO2 (19-24) mmol/L VBG pCO2 (37-51) mmHg VBG HCO3 (24-28) mmol/L Carbon Dioxide (22-30) mmol/L Creatinine (0.52-1.04) mg/dL Glucose (74-99) mg/dL POC Glucose (mg/dL) 220 H (70-110) mg/dL Hemoglobin A1c 6.7 H (<=6.0) % Calcium (8.4-10.2) mg/dL AST (14-36) U/L Ammonia (<30) umol/L C-Reactive Protein (<1.0) mg/dL Total Protein (6.3-8.2) g/dL Albumin (3.5-5.0) g/dL Urine Appearance (Clear) Urine Protein (Negative) Urine RBC (0-5) /hpf Urine WBC (0-5) /hpf Urine Bacteria (None) /hpf Urine Mucus (None) /hpf SARS-CoV-2 (PCR) (Not Detectd) 10/02/23 10/02/23 Range/Units 04:49 06:09 RBC (3.80-5.40) m/uL Hgb (11.4-16.0) gm/dL Hct (34.0-46.0) % RDW (11.5-15.5) % Neutrophils # (1.3-7.7) k/uL Lymphocytes # (1.0-4.8) k/uL ABG pCO2 (35-45) mmHg ABG pO2 (83-108) mmHg ABG HCO3 (21-25) mmol/L ABG Total CO2 (19-24) mmol/L VBG pCO2 (37-51) mmHg VBG HCO3 (24-28) mmol/L Carbon Dioxide 31 H (22-30) mmol/L Creatinine 0.35 L (0.52-1.04) mg/dL Glucose 218 H (74-99) mg/dL POC Glucose (mg/dL) 228 H (70-110) mg/dL Hemoglobin A1c (<=6.0) % Calcium 8.0 L (8.4-10.2) mg/dL AST 13 L (14-36) U/L Ammonia (<30) umol/L C-Reactive Protein 30.4 H (<1.0) mg/dL Total Protein 5.2 L (6.3-8.2) g/dL Albumin 2.9 L (3.5-5.0) g/dL Urine Appearance (Clear) Urine Protein (Negative) Urine RBC (0-5) /hpf Urine WBC (0-5) /hpf Urine Bacteria (None) /hpf Urine Mucus (None) /hpf SARS-CoV-2 (PCR) (Not Detectd) Assessment and Plan Plan: Acute hypoxic respiratory failure, multifactorial. The patient is known to have COPD in addition to that the patient has developed an acute Covid 19 infection. There is a left lower lobe consolidation with atelectasis pleural effusion, consider underlying bacterial pneumonia. Pulmonary embolism is felt to be less likely. The patient stated on BiPAP throughout the night and the patient is currently still on a BiPAP. The patient is producing adequate tidal volumes. No tachypnea. Much more awake and alert compared to yesterday. We'll try to get off the BiPAP and try nasal cannula or high flow oxygen airvo. Chest x-ray remains unchanged. Acute Covid 19 infection. Second infection and initial infection was back in 2021. Vaccination status is not known. Her previous infection was in October 2021 Altered mentation, acute on top of chronic. The patient has based on limitation mentation as the patient has chronic cognitive impairment of schizophrenia, improving Acute hypotension, likely hypovolemic currently off pressors and the patient is on saline at rate of 100 mL an hour Morbid obesity with a BMI of 42.9 Chronic hypoxic and hypercapnic respiratory failure, typically admitted on oxygen at 2 L/m nasal cannula Chronic lower extremity edema Diabetes mellitus type 2 Hypertension Hyperlipidemia Impairment baseline performance of functional status and the patient is a snf resident with a full CODE STATUS. She is a legal guardian Plan Try to get the patient off the BiPAP during the day utilizing nasal cannula, maintained on a BiPAP overnight as the patient is obviously just of obstructive sleep apnea Will change The IV Fluids to 40 ML an Hour Established a triple-lumen catheter yesterday Continue IV Zosyn Continue Decadron 6 mg IV every 24 hours Start Levemir 10 units daily along with a sliding scale coverage Monitor blood gases Patient may be able to be fed today, she comes off the BiPAP. We're also going to start her oral medication including the Depakote and the Clozaril Lovenox 40 mg subcu portably prophylaxis IV Protonix Patient has maintain on 10 mg of xarelto on outpatient basis. The exact cause is not clear. We'll check d-dimer is We'll check lower extremity Dopplers Condition is critical and we'll continue to follow Keep the patient ICU for now.
[2023-10-02] MEDS: NOREPINEPHRINE 4 MG in SODIUM CHLORIDE 0.9% 250 ML IV SCH (10:10)
[2023-10-02] MEDS: INSULIN DETEMIR (LEVEMIR) 100 UNIT/ML SYR SQ SCH (10:26)
[2023-10-02] MEDS: ENOXAPARIN 40 MG/0.4 ML SYRINGE SQ SCH (10:26)
--- NOTE | 2023-10-02 10:45 | US ---
EXAMINATION TYPE: US venous doppler duplex LE BI DATE OF EXAM: 10/02/2023 10:24 AM COMPARISON: Prior ultrasound December 08, 2021 CLINICAL INDICATION: Female, 63 years old with history of check for DVT; ICU COVID, no h/o dvt, morbi dly obese SIDE PERFORMED: Bilateral TECHNIQUE: The lower extremity deep venous system is examined utilizing real time linear array sonog casandra with graded compression, doppler sonography and color-flow sonography. VESSELS IMAGED: Common Femoral Vein Deep Femoral Vein Greater Saphenous Vein * Femoral Vein Popliteal Vein Small Saphenous Vein * Proximal Calf Veins (* superficial vessels) Right Leg: Negative for DVT Left Leg: Negative for DVT Grayscale, color doppler, spectral doppler imaging performed of the deep veins of the bilateral lower extremities. There is normal flow, compressibility, vascular waveforms. IMPRESSION: No ultrasound evidence for acute DVT in either lower extremity. No significant change fr om prior.
[2023-10-02 11:05] LABS: Glucose,Whole Blood 218 mg/dL (70-110)
--- NOTE | 2023-10-02 12:34 | P.PN ---
Subjective Progress Note Date: 10/02/23 * 63-year-old lady with past medical history significant for COPD, chronic hypoxia, diabetes mellitus, hyperlipidemia, hypertension, morbid obesity, schizophrenia, presents from [facility] with altered mentation. * History is limited patient is altered and no family or caregivers at bedside * Per chart review patient was sent in for altered mental status and respiratory failure. According to EMS report patient received fromin-home for respiratory distress. Patient had symptom onset 3 days ago. While at the facility patient was noted to be hypoxic and had saturation in 80%. Patient does have history of severe COPD as well as had similar presentation in 2021 when she was admitted with Covid 19 * Initiated in ER included CBC which were WBC of 10.3 hemoglobin 11.1 platelet count of 178 with elevated neutrophil count * Arterial blood gas obtained showed pH 7.4 pCO2 55 pO2 79 * Serum chemistry shows sodium 139 potassium 3.8, and Axert 35 BUNs 12 creatinine 0.5 glucose 180 * Ammonia within normal limits initial troponin 0.012 * N-terminal proBNP 399 albumin of 3.3 * Urinalysis obtained showed few WBC and urine many bacteria * Patient tested negative for influenza and RSV, positive for COVID-19 * CT head obtained in ED was negative for acute intracranial process, chest x- ray was obtained which was negative for acute process however chronic changes noted * Patient was given 2 L of fluid bolus in ER and started on levo fed for hypotension, intensive care unit team was contacted. Patient was also given 1 dose of Zosyn in ED which will be continued * 10/02/2023: Patient seen and evaluated in intensive care unit, patient is on BiPAP, does open eyes to verbal stimulus, following instructions as well however review of system limited secondary to underlying critical illness. Patient followed up by medical ICU team as well. Patient has a sitter at bedside. Patient started back on the antipsychotic medications including clozapine and Depakote, patient receiving levo fed central line in place left IJ REVIEW OF SYSTEMS: Altered mental status review of system limited PHYSICAL EXAMINATION: GENERAL: The patient is alert and oriented x 0, ill appearance, toxic appearance, facemask in place HEENT: Pupils are round and equally reacting to light. CARDIOVASCULAR: S1 and S2 present. No murmurs, rubs, or gallops. PULMONARY: Decreased breath sounds bilaterally ABDOMEN: Soft, nontender, nondistended, normoactive bowel sounds. No palpable organomegaly. MUSCULOSKELETAL: No joint swelling or deformity. EXTREMITIES: No cyanosis, clubbing, or pedal edema. NEUROLOGICAL: Gross neurological examination did not reveal any focal deficits. SKIN: Left lotion with the wound noted, erythema noted Objective - Vital Signs Vital signs: Vital Signs Temp 98.3 F 10/02/23 12:00 Pulse 79 10/02/23 12:00 Resp 18 10/02/23 12:00 BP 113/66 10/02/23 12:00 Pulse Ox 100 10/02/23 12:00 FiO2 40 10/02/23 12:00 Intake & Output 10/01/23 10/02/23 10/02/23 18:59 06:59 18:59 Intake Total 325.85 1599.961 517.081 Output Total 1000 930 260 Balance -674.15 669.961 257.081 Weight 113.398 kg 126 kg 126 kg Intake: Intake, IV Titration 325.85 1599.961 517.081 Amount Norepinephrine 4 mg In 25.85 399.961 79.639 Sodium Chloride 0.9% 250 ml @ 0.03 MCG/KG/MIN 12. 961 mls/hr IV .[id number] [facility] Rx#:[id number] Norepinephrine 4 mg In 17.442 Sodium Chloride 0.9% 250 ml @ 0.03 MCG/KG/MIN 14. 402 mls/hr IV .[id number] [facility] Rx#:[id number] Sodium Chloride 0.9% 1, 300 1200 420 000 ml @ 100 mls/hr IV . Q10H [facility] Rx#:[id number] Output: Urine 1000 930 260 Uretheral (Sena) 300 Other: Voiding Method Indwelling Catheter Indwelling Catheter - Labs CBC & Chem 7: 10/02/23 04:49 10/02/23 04:49 Labs: Abnormal Lab Results - Last 24 Hours (Table) 10/01/23 10/01/23 10/01/23 Range/Units 11:24 11:24 13:52 RBC (3.80-5.40) m/uL Hgb (11.4-16.0) gm/dL Hct (34.0-46.0) % RDW (11.5-15.5) % Neutrophils # (1.3-7.7) k/uL Lymphocytes # (1.0-4.8) k/uL Carbon Dioxide (22-30) mmol/L Creatinine (0.52-1.04) mg/dL Glucose (74-99) mg/dL POC Glucose (mg/dL) (70-110) mg/dL Hemoglobin A1c (<=6.0) % Calcium (8.4-10.2) mg/dL AST (14-36) U/L Ammonia 42 H (<30) umol/L C-Reactive Protein (<1.0) mg/dL Total Protein (6.3-8.2) g/dL Albumin (3.5-5.0) g/dL Urine Appearance Slightly Cloudy H (Clear) Urine Protein 1+ H (Negative) Urine RBC 6 H (0-5) /hpf Urine WBC 27 H (0-5) /hpf Urine Bacteria Many H (None) /hpf Urine Mucus Few H (None) /hpf SARS-CoV-2 (PCR) Detected A (Not Detectd) 10/01/23 10/01/23 10/01/23 Range/Units 14:12 16:05 20:02 RBC (3.80-5.40) m/uL Hgb (11.4-16.0) gm/dL Hct (34.0-46.0) % RDW (11.5-15.5) % Neutrophils # (1.3-7.7) k/uL Lymphocytes # (1.0-4.8) k/uL Carbon Dioxide (22-30) mmol/L Creatinine (0.52-1.04) mg/dL Glucose (74-99) mg/dL POC Glucose (mg/dL) 220 H 213 H 229 H (70-110) mg/dL Hemoglobin A1c (<=6.0) % Calcium (8.4-10.2) mg/dL AST (14-36) U/L Ammonia (<30) umol/L C-Reactive Protein (<1.0) mg/dL Total Protein (6.3-8.2) g/dL Albumin (3.5-5.0) g/dL Urine Appearance (Clear) Urine Protein (Negative) Urine RBC (0-5) /hpf Urine WBC (0-5) /hpf Urine Bacteria (None) /hpf Urine Mucus (None) /hpf SARS-CoV-2 (PCR) (Not Detectd) 10/01/23 10/01/23 10/02/23 Range/Units 21:20 23:33 01:45 RBC (3.80-5.40) m/uL Hgb (11.4-16.0) gm/dL Hct (34.0-46.0) % RDW (11.5-15.5) % Neutrophils # (1.3-7.7) k/uL Lymphocytes # (1.0-4.8) k/uL Carbon Dioxide (22-30) mmol/L Creatinine (0.52-1.04) mg/dL Glucose (74-99) mg/dL POC Glucose (mg/dL) 233 H 229 H 245 H (70-110) mg/dL Hemoglobin A1c (<=6.0) % Calcium (8.4-10.2) mg/dL AST (14-36) U/L Ammonia (<30) umol/L C-Reactive Protein (<1.0) mg/dL Total Protein (6.3-8.2) g/dL Albumin (3.5-5.0) g/dL Urine Appearance (Clear) Urine Protein (Negative) Urine RBC (0-5) /hpf Urine WBC (0-5) /hpf Urine Bacteria (None) /hpf Urine Mucus (None) /hpf SARS-CoV-2 (PCR) (Not Detectd) 10/02/23 10/02/23 10/02/23 Range/Units 03:56 04:49 04:49 RBC 3.41 L (3.80-5.40) m/uL Hgb 10.3 L (11.4-16.0) gm/dL Hct 31.7 L (34.0-46.0) % RDW 15.6 H (11.5-15.5) % Neutrophils # 7.8 H (1.3-7.7) k/uL Lymphocytes # 0.8 L (1.0-4.8) k/uL Carbon Dioxide (22-30) mmol/L Creatinine (0.52-1.04) mg/dL Glucose (74-99) mg/dL POC Glucose (mg/dL) 220 H (70-110) mg/dL Hemoglobin A1c 6.7 H (<=6.0) % Calcium (8.4-10.2) mg/dL AST (14-36) U/L Ammonia (<30) umol/L C-Reactive Protein (<1.0) mg/dL Total Protein (6.3-8.2) g/dL Albumin (3.5-5.0) g/dL Urine Appearance (Clear) Urine Protein (Negative) Urine RBC (0-5) /hpf Urine WBC (0-5) /hpf Urine Bacteria (None) /hpf Urine Mucus (None) /hpf SARS-CoV-2 (PCR) (Not Detectd) 10/02/23 10/02/23 10/02/23 Range/Units 04:49 06:09 11:03 RBC (3.80-5.40) m/uL Hgb (11.4-16.0) gm/dL Hct (34.0-46.0) % RDW (11.5-15.5) % Neutrophils # (1.3-7.7) k/uL Lymphocytes # (1.0-4.8) k/uL Carbon Dioxide 31 H (22-30) mmol/L Creatinine 0.35 L (0.52-1.04) mg/dL Glucose 218 H (74-99) mg/dL POC Glucose (mg/dL) 228 H 218 H (70-110) mg/dL Hemoglobin A1c (<=6.0) % Calcium 8.0 L (8.4-10.2) mg/dL AST 13 L (14-36) U/L Ammonia (<30) umol/L C-Reactive Protein 30.4 H (<1.0) mg/dL Total Protein 5.2 L (6.3-8.2) g/dL Albumin 2.9 L (3.5-5.0) g/dL Urine Appearance (Clear) Urine Protein (Negative) Urine RBC (0-5) /hpf Urine WBC (0-5) /hpf Urine Bacteria (None) /hpf Urine Mucus (None) /hpf SARS-CoV-2 (PCR) (Not Detectd) Assessment and Plan Assessment: Assessment and plan * Acute on chronic hypoxic respiratory failure, with acute exacerbation of COPD * Covid 19 while pneumonia with severe acute respiratory distress syndrome * Acute metabolic encephalopathy with hypercapnia * Severe sepsis with septic shock * Diabetes mellitus type 2 * Hypertension * Hyperlipidemia * Lymphedema chronic lower extremity * Morbid obesity with BMI 42.9 * History of schizophrenia * In regards to acute hypoxic respiratory failure chest x-ray reviewed, patient is on BiPAP, , continue patient on IV dexamethasone, pulmonary medicine and infectious disease consulted, continue breathing treatments, continue noninvasive ventilation. Patient is full code she does have a legal guardian [phone] * In regards to acute metabolic encephalopathy, CT brain negative, while on noninvasive ventilation probably medicine consulted, home medications including clozapine and Depakote resumed * In regards to severe sepsis/septic shock patient started on levophed will wean as tolerated, appropriately resuscitated with fluids * In regards to history of hypertension, patient and shock continue to hold home regimen * In regards to severe sepsis, continue broad-spectrum antibiotic on IV Zosyn, MICU and infectious disease consulted * In regards to history of schizophrenia, Depakote and clozapine resumed * CODE STATUS is full code Time with Patient: Greater than 30
--- NOTE | 2023-10-02 16:06 | P.PN ---
Subjective Progress Note Date: 10/02/23 Principal diagnosis: Reason for follow-up is Covid and pneumonia Patient is a 63-year-old female with a past medical history negative for diabetes mellitus hypertension hyperlipidemia COPD resident of [facility] patient was sent to the ER for evaluation of altered mentation and respiratory failure, with recent diagnosis of covid 19, patient did have a CT angiogram of the chest did shows left basilar consultation, patient did have a significant respiratory failure requiring admission to the ICU on BiPAP On today's evaluation that is 10/02/2023, the patient is afebrile today and is breathing comfortably on 7 L nasal cannula oxygen, and patient denies chest pain and no worsening cough or sputum production, patient denies abdominal pain, no nausea/vomiting and no diarrhea has been reported Patient did have I can of 9.2, creatinine 0.35 Objective - Vital Signs Vital signs: Vital Signs Temp 98.3 F 10/02/23 12:00 Pulse 92 10/02/23 13:00 Resp 23 10/02/23 13:00 BP 102/73 10/02/23 13:00 Pulse Ox 99 10/02/23 13:00 FiO2 40 10/02/23 12:00 Intake & Output 10/01/23 10/02/23 10/02/23 18:59 06:59 18:59 Intake Total 325.85 1599.961 557.081 Output Total 1000 930 300 Balance -674.15 669.961 257.081 Weight 113.398 kg 126 kg 126 kg Intake: Intake, IV Titration 325.85 1599.961 557.081 Amount Norepinephrine 4 mg In 25.85 399.961 79.639 Sodium Chloride 0.9% 250 ml @ 0.03 MCG/KG/MIN 12. 961 mls/hr IV .[id number] [facility] Rx#:[id number] Norepinephrine 4 mg In 17.442 Sodium Chloride 0.9% 250 ml @ 0.03 MCG/KG/MIN 14. 402 mls/hr IV .[id number] [facility] Rx#:[id number] Sodium Chloride 0.9% 1, 300 1200 460 000 ml @ 100 mls/hr IV . Q10H [facility] Rx#:[id number] Output: Urine 1000 930 300 Uretheral (Snea) 300 Other: Voiding Method Indwelling Catheter Indwelling Catheter - Exam GENERAL DESCRIPTION: An elderly female lying in bed in no distress RESPIRATORY SYSTEM: Unlabored breathing , decreased intensity of breath sounds no wheeze HEART: S1 S2 regular rate and rhythm , ABDOMEN: Soft , no tenderness EXTREMITIES: Right lower extremity wound is currently dressed - Labs CBC & Chem 7: 10/02/23 04:49 10/02/23 04:49 Labs: Abnormal Lab Results - Last 24 Hours (Table) 10/01/23 10/01/23 10/01/23 Range/Units 16:05 20:02 21:20 RBC (3.80-5.40) m/uL Hgb (11.4-16.0) gm/dL Hct (34.0-46.0) % RDW (11.5-15.5) % Neutrophils # (1.3-7.7) k/uL Lymphocytes # (1.0-4.8) k/uL Carbon Dioxide (22-30) mmol/L Creatinine (0.52-1.04) mg/dL Glucose (74-99) mg/dL POC Glucose (mg/dL) 213 H 229 H 233 H (70-110) mg/dL Hemoglobin A1c (<=6.0) % Calcium (8.4-10.2) mg/dL AST (14-36) U/L C-Reactive Protein (<1.0) mg/dL Total Protein (6.3-8.2) g/dL Albumin (3.5-5.0) g/dL 10/01/23 10/02/23 10/02/23 Range/Units 23:33 01:45 03:56 RBC (3.80-5.40) m/uL Hgb (11.4-16.0) gm/dL Hct (34.0-46.0) % RDW (11.5-15.5) % Neutrophils # (1.3-7.7) k/uL Lymphocytes # (1.0-4.8) k/uL Carbon Dioxide (22-30) mmol/L Creatinine (0.52-1.04) mg/dL Glucose (74-99) mg/dL POC Glucose (mg/dL) 229 H 245 H 220 H (70-110) mg/dL Hemoglobin A1c (<=6.0) % Calcium (8.4-10.2) mg/dL AST (14-36) U/L C-Reactive Protein (<1.0) mg/dL Total Protein (6.3-8.2) g/dL Albumin (3.5-5.0) g/dL 10/02/23 10/02/23 10/02/23 Range/Units 04:49 04:49 04:49 RBC 3.41 L (3.80-5.40) m/uL Hgb 10.3 L (11.4-16.0) gm/dL Hct 31.7 L (34.0-46.0) % RDW 15.6 H (11.5-15.5) % Neutrophils # 7.8 H (1.3-7.7) k/uL Lymphocytes # 0.8 L (1.0-4.8) k/uL Carbon Dioxide 31 H (22-30) mmol/L Creatinine 0.35 L (0.52-1.04) mg/dL Glucose 218 H (74-99) mg/dL POC Glucose (mg/dL) (70-110) mg/dL Hemoglobin A1c 6.7 H (<=6.0) % Calcium 8.0 L (8.4-10.2) mg/dL AST 13 L (14-36) U/L C-Reactive Protein 30.4 H (<1.0) mg/dL Total Protein 5.2 L (6.3-8.2) g/dL Albumin 2.9 L (3.5-5.0) g/dL 10/02/23 10/02/23 Range/Units 06:09 11:03 RBC (3.80-5.40) m/uL Hgb (11.4-16.0) gm/dL Hct (34.0-46.0) % RDW (11.5-15.5) % Neutrophils # (1.3-7.7) k/uL Lymphocytes # (1.0-4.8) k/uL Carbon Dioxide (22-30) mmol/L Creatinine (0.52-1.04) mg/dL Glucose (74-99) mg/dL POC Glucose (mg/dL) 228 H 218 H (70-110) mg/dL Hemoglobin A1c (<=6.0) % Calcium (8.4-10.2) mg/dL AST (14-36) U/L C-Reactive Protein (<1.0) mg/dL Total Protein (6.3-8.2) g/dL Albumin (3.5-5.0) g/dL Assessment and Plan (1) Pneumonia Current Visit: Yes Status: Acute Code(s): J18.9 - PNEUMONIA, UNSPECIFIED ORGANISM SNOMED Code(s): 071648868 (2) Leg wound, right Current Visit: Yes Status: Acute Code(s): S81.801A - UNSPECIFIED OPEN WOUND, RIGHT LOWER LEG, INITIAL ENCOUNTER SNOMED Code(s): 408853217 (3) COVID-19 Current Visit: Yes Status: Acute Code(s): U07.1 - COVID-19 SNOMED Code(s): 113438848 Plan: 1patient was in the hospital with sepsis in this patient who did have a fever tachycardia source likely acute COVID-19 infection and concern for possible left basilar secondary bacterial pneumonia in this patient who is [facility] resident we will need to cover for the gram-negative's pathogen 2try to obtain a sputum for Gram stain and culture, currently waiting for procalcitonin 3-local wound care to the right leg wound with Aquacel silver dressing changed every 48 hour 4patient to continue the patient on Zosyn along with the dexamethasone and monitor clinical course closely Dictation was produced using [employer] dictation software. please excuse any grammatical, word or spelling errors. Time with Patient: Less than 30
[2023-10-02 16:52] LABS: Glucose,Whole Blood 225 mg/dL (70-110)
[2023-10-02] MEDS: ASCORBIC ACID 500 MG TAB PO SCH (16:59)
[2023-10-02] MEDS: ZINC SULFATE 220 MG CAP PO SCH (16:59)
[2023-10-02 20:40] LABS: Glucose,Whole Blood 232 mg/dL (70-110)
[2023-10-02] MEDS: ATORVASTATIN 20 MG TAB PO SCH (21:39)
[2023-10-02] MEDS: cloZAPine 100 MG TAB PO SCH (21:39)
[2023-10-02] MEDS: DIVALPROEX ER 500 MG TAB.ER.24H PO SCH (21:39)
[2023-10-03 00:05] LABS: Glucose,Whole Blood 219 mg/dL (70-110)
[2023-10-03] MEDS: INSULIN ASPART (NovoLOG) 100 UNIT/ML VIAL SQ SCH ×6 (00:47→21:24)
[2023-10-03] MEDS: PIPERACILLIN-TAZOBACTAM 3.375 GM in SODIUM CHLORIDE 0.9% 100 ML IVPB SCH ×3 (05:56→21:24)
[2023-10-03] MEDS: NOREPINEPHRINE 4 MG in SODIUM CHLORIDE 0.9% 250 ML IV SCH ×2 (05:57→20:01)
[2023-10-03 06:04] LABS: Basophils % (A) 0 %; Eosinophils % (A) 0 %; HCT 30.5 % (34.0-46.0); HGB 9.7 gm/dL (11.4-16.0); Hypochromasia Moderate; Lymphocytes % (A) 15 %; MCH 29.8 pg (25.0-35.0); MCHC 31.8 g/dL (31.0-37.0); MCV 93.6 fL (80.0-100.0); Mean Platelet Volume 8.4; Monocytes # (A) 0.5 k/uL (0-1.0); Monocytes % (A) 7 %; Neutrophils # (A) 5.2 k/uL (1.3-7.7); Neutrophils % (A) 77 %; Platelet Count 195 k/uL (150-450); RBC 3.26 m/uL (3.80-5.40); RDW 15.3 % (11.5-15.5); WBC 6.8 k/uL (3.8-10.6)
[2023-10-03 06:05] LABS: Glucose,Whole Blood 190 mg/dL (70-110)
[2023-10-03 06:26] LABS: ALT 13 U/L (4-34); AST 14 U/L (14-36); African American GFR (CKD) >90 (>60 ml/min/1.73 sqM); Alkaline Phosphatase 58 U/L (38-126); Anion Gap 3 mmol/L; Blood Urea Nitrogen 17 mg/dL (7-17); Calcium 8.4 mg/dL (8.4-10.2); Carbon Dioxide 35 mmol/L (22-30); Chloride 103 mmol/L (98-107); Glucose 175 mg/dL (74-99); Non-African American GFR(CKD) >90 (>60 ml/min/1.73 sqM); Potassium 4.3 mmol/L (3.5-5.1); Sodium 141 mmol/L (137-145); Total Bilirubin 0.4 mg/dL (0.2-1.3); Total Protein 5.3 g/dL (6.3-8.2)
[2023-10-03] MEDS: INSULIN DETEMIR (LEVEMIR) 100 UNIT/ML SYR SQ SCH (06:27)
[2023-10-03 06:51] LABS: C Reactive Protein 14.8 mg/dL (<1.0)
[2023-10-03] MEDS: ENOXAPARIN 40 MG/0.4 ML SYRINGE SQ SCH (07:42)
[2023-10-03] MEDS: ASPIRIN 81 MG PO SCH (08:19)
[2023-10-03] MEDS: LACTULOSE 20 GM/30 ML CUP PO PRN (08:19)
[2023-10-03] MEDS: DEXAMETHASONE SOD PHOSPHATE 10 MG/ML 1 ML VIAL IV SCH (08:20)
[2023-10-03] MEDS: guaiFENesin 600 MG TABLET.ER PO SCH ×2 (08:20→21:23)
[2023-10-03] MEDS: FAMOTIDINE 20 MG/2 ML VIAL IV SCH ×2 (08:20→21:23)
[2023-10-03] MEDS: ASCORBIC ACID 500 MG TAB PO SCH ×2 (08:22→16:44)
[2023-10-03] MEDS: DIVALPROEX ER 500 MG TAB.ER.24H PO SCH (08:24)
--- NOTE | 2023-10-03 08:27 | XR ---
EXAM: XR chest 1V portable CLINICAL INDICATION:Female, 63 years old with history of left lower lobe infiltrate; [facility] COMPARISON: 10/02/2023 and before TECHNIQUE: Chest single view. FINDINGS: Lines/tubes/devices: Left IJ central venous line has been repositioned, its catheter tip now extends inferiorly to project near the cavoatrial junction. EKG leads overlie the chest. Cardiomediastinum: Cardiac silhouette appears stable, upper normal in size. Stable mediastinal silhouette. Atherosclerotic calcifications of the aorta. Vasculature: Improved central vascular congestion compared to prior. Lungs/pleura: Improved aeration of the left lung base, with diminished infiltrate or atelectasis. Suspect small lef t pleural effusion, appears decreased. No visualized pneumothorax. Bones/soft tissues: Osseous structures appear unchanged. Regional soft tissues appear unremarkable. IMPRESSION: 1. Interval improved aeration of the lungs, with decreased infiltrate or atelectasis at the left socrates g base, and decreased small left effusion. Improved pulmonary vascular congestion. 2. Interval repositioning of the left central venous line with tip now over the cavoatrial junction.
[2023-10-03 08:39] LABS: Glucose,Whole Blood 196 mg/dL (70-110)
--- NOTE | 2023-10-03 09:17 | P.PN ---
Subjective Progress Note Date: 10/03/23 63-year-old female patient, skilled nursing resident, known history of COPD with chronic hypoxic respiratory failure maintained on oxygen at 3 L per minute nasal cannula, morbidly obese with a body mass index of 42.9 in addition to chronic hypercapnic respiratory failure, presented to the MRSA protocol because of altered mental status and diminished level of consciousness. The patient is typically alert and oriented 2. There was no diminishment in her level of consciousness and is same time the patient was having respiratory distress. In the emergency, the patient was found to be hypoxic. The patient was placed on 100% nonrebreather facemask. Following that, the patient was placed on a BiPAP at a pressure of 12/6 with an FiO2 of 50%. Blood gas showed a pH of 7.4 with episodes of 55 and pO2 of 79. Chest x-ray was limited and there was some left basilar infiltration. Subsequently, the patient was given a CT angiogram that showed no evidence of any pulmonary embolism. There was tiny left-sided pleural effusion and left basilar consolidation with atelectasis. There is also background emphysema. The patient was given a total of 2 L of IV fluid bolus. Currently she is on norepinephrine at a low dose of 0.05 mcg/kg/m. The patient also received a dose of Zosyn in emergency department. CAT scan of the brain showed no acute process. It showed chronic atrophy. The viral screen was positive for Covid 19. This is her second infection. The patient was hospitalized back in 2021 for the same. Back then, she was Covid 19 positive. The patient had a white cell count of 10.3, hemoglobin of 11, normal coagulation profile, BUN of 12 with a creatinine of 0.5 and a sodium of 139. Troponins are negative. ProBNP is 399. UA was abnormal with 27 WBCs. Many bacteria. On today's evaluation of 10/02/2023, seeing the patient for a follow-up. Seems to be more awake and alert compared to yesterday. The patient is following simple commands. She is able to move all 4 extremities upon command. She is on a BiPAP at a pressure of 12 over his centimeters of water and FiO2 has been dropped onto 40%. Chest x-ray remains unchanged and there is some limited left lower lobe consolidation and the patient is currently on steroids regarding her Covid 19 infection and she is also on IV Zosyn regarding possibility of a pneumonia/aspiration of the left lower lobe. She received a total of 2 L of fluid bolus yesterday currently IV fluids are running at 100 mL an hour. She is normotensive. She is on no pressors. Her blood work today shows a BUN of 14 with a creatinine of 0.35, sodium level is at 139 with a potassium of 4.0. Serum bicarb is at 31. The white cell count is at 9.2 with a hemoglobin of 10.3 and a platelet count of 163. LFTs are essentially within normal limits. Her CRP level was 30. Had hemoglobin A1c is at X.7. She is able to tolerate the BiPAP without having any major difficulties speech is on Decadron 6 mg IV every 24 hours. She is currently off pressors. She is on NovoLog sliding scale coverage. She is also on Lovenox for DVT prophylaxis. D-dimer is are pending. Doppler of the lower extremity is also pending. She may need to go back on his psychotropic medication including clozapine 20 mg at bedtime. She'll be also started back on her Depakote 1.5 g at bedtime. Note that the patient takes prednisone on outpatient basis a dose of 10 mg by mouth daily on a daily basis. She has been maintained also on low-dose anticoagulation/ xarelto , the exact cause for that is not known. 10/03/2023, the patient is much more alert and awake and she is off the BiPAP and she is currently on oxygen at 3 L. She did not use the BiPAP overnight. H er chest x-ray shows adequate expansion of both lungs. No airspace disease of consolidation. She remains on Decadron. She remains on IV Zosyn. Hemodynamically stable. She is on no pressors. She has a white cell count of 6.8, hemoglobin is 9.7 and sodium levels of 141 with a potassium level of 4.3, BUN is at 17 with a creatinine of 0.4. Her d-dimer was negative at 0.54. Doppler of the lower extremities was also negative. As such, the exact cause for her low-dose anticoagulation still not clear. The patient is currently on Lovenox for DVT prophylaxis 40 mg subcu daily. The patient is also on Levemir insulin 10 units and she is also on sliding scale coverage. IV fluids are at 40 mL an hour and overall fluid balance is positive for 100 mL since [employer]. She is lethargic and she is arousable and she is communicating and she is alert to self and place. She noted that she was in [facility]. Objective - Vital Signs Vital signs: Vital Signs Temp 97.4 F L 10/03/23 08:00 Pulse 73 10/03/23 09:00 Resp 26 H 10/03/23 09:00 BP 124/69 10/03/23 09:00 Pulse Ox 99 10/03/23 09:00 FiO2 40 10/02/23 18:00 Intake & Output 10/02/23 10/03/23 10/03/23 18:59 06:59 18:59 Intake Total 797.081 740 120 Output Total 545 570 0 Balance 252.081 170 120 Weight 126 kg 128.6 kg Intake: IV 740 120 Piperacillin-Tazobactam 3 300 .375 gm In Sodium Chloride 0.9% 100 ml @ 25 mls/hr IVPB Q8H [facility] Rx#: [id number] Sodium Chloride 0.9% 1, 440 120 000 ml @ 40 mls/hr IV . Q24H [facility] Rx#:[id number] Intake, IV Titration 797.081 Amount Norepinephrine 4 mg In 79.639 Sodium Chloride 0.9% 250 ml @ 0.03 MCG/KG/MIN 12. 961 mls/hr IV .[id number] [facility] Rx#:[id number] Norepinephrine 4 mg In 17.442 Sodium Chloride 0.9% 250 ml @ 0.03 MCG/KG/MIN 14. 402 mls/hr IV .[id number] [facility] Rx#:[id number] Sodium Chloride 0.9% 1, 700 000 ml @ 100 mls/hr IV . Q10H [facility] Rx#:[id number] Output: Urine 545 570 0 Other: Voiding Method Indwelling Catheter Indwelling Catheter - Exam GENERAL EXAM: Somnolent, still limited confusion is present although this improved significantly compared to yesterday. She is alert to self and place. currently on 3 L of oxygen by nasal cannula Morbidly obese with a body mass index of 42.9 HEAD: Normocephalic/atraumatic. EYES: Normal reaction of pupils, equal size. Conjunctiva pink, sclera white. NOSE: Clear with pink turbinates. THROAT: No erythema or exudates. NECK: No masses, no JVD, no thyroid enlargement, no adenopathy. CHEST: No chest wall deformity. Symmetrical expansion. Diminished breath sounds bilaterally especially in the lung bases LUNGS: Equal air entry with no crackles, wheeze, rhonchi or dullness. CVS: Regular rate and rhythm, normal S1 and S2, no gallops, no murmurs, no rubs ABDOMEN: Soft, nontender. No hepatosplenomegaly, normal bowel sounds, no guarding or rigidity. EXTREMITIES: No clubbing, no edema, no cyanosis, 2+ pulses and upper and lower extremities. MUSCULOSKELETAL: Muscle strength and tone normal. SPINE: No scoliosis or deformity SKIN: No rashes CENTRAL NERVOUS SYSTEM: Awake and communicating at this point in time, moving all 4 extremities PSYCHIATRIC: Alert and oriented -2. Appropriate affect. Intact judgment and insight. - Labs CBC & Chem 7: 10/03/23 05:34 10/03/23 05:34 Labs: Abnormal Lab Results - Last 24 Hours (Table) 10/02/23 10/02/23 10/02/23 Range/Units 11:03 16:50 20:38 RBC (3.80-5.40) m/uL Hgb (11.4-16.0) gm/dL Hct (34.0-46.0) % Carbon Dioxide (22-30) mmol/L Creatinine (0.52-1.04) mg/dL Glucose (74-99) mg/dL POC Glucose (mg/dL) 218 H 225 H 232 H (70-110) mg/dL C-Reactive Protein (<1.0) mg/dL Total Protein (6.3-8.2) g/dL Albumin (3.5-5.0) g/dL 10/03/23 10/03/23 10/03/23 Range/Units 00:03 05:34 05:34 RBC 3.26 L (3.80-5.40) m/uL Hgb 9.7 L (11.4-16.0) gm/dL Hct 30.5 L (34.0-46.0) % Carbon Dioxide 35 H (22-30) mmol/L Creatinine 0.47 L (0.52-1.04) mg/dL Glucose 175 H (74-99) mg/dL POC Glucose (mg/dL) 219 H (70-110) mg/dL C-Reactive Protein 14.8 H (<1.0) mg/dL Total Protein 5.3 L (6.3-8.2) g/dL Albumin 3.0 L (3.5-5.0) g/dL 10/03/23 10/03/23 Range/Units 06:04 08:36 RBC (3.80-5.40) m/uL Hgb (11.4-16.0) gm/dL Hct (34.0-46.0) % Carbon Dioxide (22-30) mmol/L Creatinine (0.52-1.04) mg/dL Glucose (74-99) mg/dL POC Glucose (mg/dL) 190 H 196 H (70-110) mg/dL C-Reactive Protein (<1.0) mg/dL Total Protein (6.3-8.2) g/dL Albumin (3.5-5.0) g/dL Microbiology - Last 24 Hours (Table) 10/01/23 13:53 Blood Culture - Preliminary Blood 10/01/23 13:53 Blood Culture - Preliminary Blood Assessment and Plan Plan: Acute hypoxic respiratory failure, multifactorial. The patient is known to have COPD in addition to that the patient has developed an acute Covid 19 infection. There is a left lower lobe consolidation with atelectasis pleural effusion, consider underlying bacterial pneumonia. Pulmonary embolism is felt to be less likely. Dimer was negative. Doppler of the lower extremities were negative. Chest x-ray showing improvement and the patient is currently off the BiPAP on 3 L of oxygen nasal cannula. Acute Covid 19 infection. Second infection and initial infection was back in 2021. Vaccination status is not known. Her previous infection was in October 2021 Altered mentation, acute on top of chronic. The patient has based on limitation mentation as the patient has chronic cognitive impairment of schizophrenia, improving, the confusion is also improving. Acute hypotension, likely hypovolemic currently off pressors and the patient is on saline at rate of 40 mL an hour. Morbid obesity with a BMI of 42.9 Chronic hypoxic and hypercapnic respiratory failure, typically admitted on oxygen at 2 L/m nasal cannula Chronic lower extremity edema Diabetes mellitus type 2 Hypertension Hyperlipidemia Impairment baseline performance of functional status and the patient is a skilled nursing resident with a full CODE STATUS. She is a legal guardian Plan Give the patient oxygen by nasal cannula, maintained on a BiPAP overnight as the patient is obviously just of obstructive sleep apnea The IV Fluids to 40 ML an Hour Established a triple-lumen catheter yesterday Continue IV Zosyn Continue Decadron 6 mg IV every 24 hours Levemir 10 units daily along with a sliding scale coverage Monitor blood gases Patient on Depakote and the Clozaril Liquid diet Lovenox 40 mg subcu portably prophylaxis IV Protonix Patient has maintain on 10 mg of xarelto on outpatient basis. The exact cause is not clear. Dimer" NEGATIVE, Doppler lower extremities were negative We'll check lower extremity Dopplers Condition is improved Keep the patient ICU for now.
--- NOTE | 2023-10-03 10:43 | P.PN ---
Subjective Progress Note Date: 10/03/23 * 63-year-old lady with past medical history significant for COPD, chronic hypoxia, diabetes mellitus, hyperlipidemia, hypertension, morbid obesity, schizophrenia, presents from [facility] with altered mentation. * History is limited patient is altered and no family or caregivers at bedside * Per chart review patient was sent in for altered mental status and respiratory failure. According to EMS report patient received fromin-home for respiratory distress. Patient had symptom onset 3 days ago. While at the facility patient was noted to be hypoxic and had saturation in 80%. Patient does have history of severe COPD as well as had similar presentation in 2021 when she was admitted with Covid 19 * Initiated in ER included CBC which were WBC of 10.3 hemoglobin 11.1 platelet count of 178 with elevated neutrophil count * Arterial blood gas obtained showed pH 7.4 pCO2 55 pO2 79 * Serum chemistry shows sodium 139 potassium 3.8, and Axert 35 BUNs 12 creatinine 0.5 glucose 180 * Ammonia within normal limits initial troponin 0.012 * N-terminal proBNP 399 albumin of 3.3 * Urinalysis obtained showed few WBC and urine many bacteria * Patient tested negative for influenza and RSV, positive for COVID-19 * CT head obtained in ED was negative for acute intracranial process, chest x- ray was obtained which was negative for acute process however chronic changes noted * Patient was given 2 L of fluid bolus in ER and started on levo fed for hypotension, intensive care unit team was contacted. Patient was also given 1 dose of Zosyn in ED which will be continued * 10/02/2023: Patient seen and evaluated in intensive care unit, patient is on BiPAP, does open eyes to verbal stimulus, following instructions as well however review of system limited secondary to underlying critical illness. Patient followed up by medical ICU team as well. Patient has a sitter at bedside. Patient started back on the antipsychotic medications including clozapine and Depakote, patient receiving levo fed central line in place left IJ * 10/03/2023: Patient seen and evaluated bedside, mentation has improved, the patient is following commands patient on 3 L of oxygen. Blood work shows hemoglobin 9.7 WBC within normal limits. Serum chemistry Improved REVIEW OF SYSTEMS: Altered mental review of system limited PHYSICAL EXAMINATION: GENERAL: The patient is alert and oriented x 0, ill appearance, toxic appearance, nasal cannula in place HEENT: Pupils are round and equally reacting to light. CARDIOVASCULAR: S1 and S2 present. No murmurs, rubs, or gallops. PULMONARY: Decreased breath sounds bilaterally ABDOMEN: Soft, nontender, nondistended, normoactive bowel sounds. No palpable organomegaly. MUSCULOSKELETAL: No joint swelling or deformity. EXTREMITIES: No cyanosis, clubbing, or pedal edema. NEUROLOGICAL: Gross neurological examination did not reveal any focal deficits. SKIN: Left leg with the wound noted, erythema noted Objective - Vital Signs Vital signs: Vital Signs Temp 97.4 F L 10/03/23 08:00 Pulse 64 10/03/23 10:00 Resp 28 H 10/03/23 10:00 BP 134/72 10/03/23 10:00 Pulse Ox 96 10/03/23 10:00 FiO2 40 10/03/23 09:24 Intake & Output 10/02/23 10/03/23 10/03/23 18:59 06:59 18:59 Intake Total 797.081 740 160 Output Total 545 570 0 Balance 252.081 170 160 Weight 126 kg 128.6 kg Intake: IV 740 160 Piperacillin-Tazobactam 3 300 .375 gm In Sodium Chloride 0.9% 100 ml @ 25 mls/hr IVPB Q8H [facility] Rx#: [id number] Sodium Chloride 0.9% 1, 440 160 000 ml @ 40 mls/hr IV . Q24H [facility] Rx#:[id number] Intake, IV Titration 797.081 Amount Norepinephrine 4 mg In 79.639 Sodium Chloride 0.9% 250 ml @ 0.03 MCG/KG/MIN 12. 961 mls/hr IV .[id number] [facility] Rx#:[id number] Norepinephrine 4 mg In 17.442 Sodium Chloride 0.9% 250 ml @ 0.03 MCG/KG/MIN 14. 402 mls/hr IV .[id number] [facility] Rx#:[id number] Sodium Chloride 0.9% 1, 700 000 ml @ 100 mls/hr IV . Q10H [facility] Rx#:[id number] Output: Urine 545 570 0 Other: Voiding Method Indwelling Catheter Indwelling Catheter Indwelling Catheter - Labs CBC & Chem 7: 10/03/23 05:34 10/03/23 05:34 Labs: Abnormal Lab Results - Last 24 Hours (Table) 12/05/1810/02/23 10/02/23 Range/Units 11:03 16:50 20:38 RBC (3.80-5.40) m/uL Hgb (11.4-16.0) gm/dL Hct (34.0-46.0) % Carbon Dioxide (22-30) mmol/L Creatinine (0.52-1.04) mg/dL Glucose (74-99) mg/dL POC Glucose (mg/dL) 218 H 225 H 232 H (70-110) mg/dL C-Reactive Protein (<1.0) mg/dL Total Protein (6.3-8.2) g/dL Albumin (3.5-5.0) g/dL 10/03/23 10/03/23 10/03/23 Range/Units 00:03 05:34 05:34 RBC 3.26 L (3.80-5.40) m/uL Hgb 9.7 L (11.4-16.0) gm/dL Hct 30.5 L (34.0-46.0) % Carbon Dioxide 35 H (22-30) mmol/L Creatinine 0.47 L (0.52-1.04) mg/dL Glucose 175 H (74-99) mg/dL POC Glucose (mg/dL) 219 H (70-110) mg/dL C-Reactive Protein 14.8 H (<1.0) mg/dL Total Protein 5.3 L (6.3-8.2) g/dL Albumin 3.0 L (3.5-5.0) g/dL 10/03/23 10/03/23 Range/Units 06:04 08:36 RBC (3.80-5.40) m/uL Hgb (11.4-16.0) gm/dL Hct (34.0-46.0) % Carbon Dioxide (22-30) mmol/L Creatinine (0.52-1.04) mg/dL Glucose (74-99) mg/dL POC Glucose (mg/dL) 190 H 196 H (70-110) mg/dL C-Reactive Protein (<1.0) mg/dL Total Protein (6.3-8.2) g/dL Albumin (3.5-5.0) g/dL Microbiology - Last 24 Hours (Table) 10/01/23 13:53 Blood Culture - Preliminary Blood 10/01/23 13:53 Blood Culture - Preliminary Blood Assessment and Plan Assessment: Assessment and plan * Acute on chronic hypoxic respiratory failure, with acute exacerbation of COPD * Covid 19 while pneumonia with severe acute respiratory distress syndrome * Acute metabolic encephalopathy with hypercapnia * Severe sepsis with septic shock * Diabetes mellitus type 2 * Hypertension * Hyperlipidemia * Lymphedema chronic lower extremity * Morbid obesity with BMI 42.9 * History of schizophrenia * In regards to acute hypoxic respiratory failure >> chest x-ray reviewed, patient was on BiPAP>> transition to nasal cannula continue patient on IV dexamethasone, pulmonary medicine and infectious disease consulted, continue breathing treatments, continue noninvasive ventilation. Patient is full code she does have a legal guardian [phone] * In regards to acute metabolic encephalopathy, CT brain negative, while on noninvasive ventilation probably medicine consulted, home medications including clozapine and Depakote resumed * In regards to severe sepsis/septic shock patient started on levophed weaned off 10/02/23 , appropriately resuscitated with fluids * In regards to history of hypertension, patient and shock continue to hold home regimen * In regards to severe sepsis, continue broad-spectrum antibiotic on IV Zosyn, MICU and infectious disease consulted * In regards to history of schizophrenia, Depakote and clozapine resumed * CODE STATUS is full code Time with Patient: Greater than 30
[2023-10-03 11:28] LABS: Glucose,Whole Blood 260 mg/dL (70-110)
[2023-10-03 16:20] LABS: Glucose,Whole Blood 197 mg/dL (70-110)
[2023-10-03] MEDS: ZINC SULFATE 220 MG CAP PO SCH (16:44)
[2023-10-03 19:57] LABS: Glucose,Whole Blood 230 mg/dL (70-110)
[2023-10-03] MEDS: ATORVASTATIN 20 MG TAB PO SCH (21:23)
[2023-10-03] MEDS: cloZAPine 100 MG TAB PO SCH (21:23)
[2023-10-04 00:27] LABS: Glucose,Whole Blood 204 mg/dL (70-110)
[2023-10-04] MEDS: SODIUM CHLORIDE 0.9% 1,000 ML IV SCH ×2 (03:17→12:29)
[2023-10-04 04:30] LABS: Glucose,Whole Blood 187 mg/dL (70-110)
[2023-10-04] MEDS: PIPERACILLIN-TAZOBACTAM 3.375 GM in SODIUM CHLORIDE 0.9% 100 ML IVPB SCH ×3 (05:34→21:29)
[2023-10-04 06:23] LABS: Basophils % (A) 0 %; Eosinophils % (A) 0 %; HCT 29.4 % (34.0-46.0); HGB 9.3 gm/dL (11.4-16.0); Hypochromasia Moderate; Lymphocytes # (A) 1.5 k/uL (1.0-4.8); Lymphocytes % (A) 23 %; MCH 29.8 pg (25.0-35.0); MCHC 31.6 g/dL (31.0-37.0); MCV 94.5 fL (80.0-100.0); Mean Platelet Volume 8.7; Monocytes # (A) 0.5 k/uL (0-1.0); Monocytes % (A) 7 %; Neutrophils # (A) 4.3 k/uL (1.3-7.7); Neutrophils % (A) 68 %; Platelet Count 181 k/uL (150-450); RBC 3.12 m/uL (3.80-5.40); RDW 15.5 % (11.5-15.5); WBC 6.4 k/uL (3.8-10.6)
[2023-10-04 06:55] LABS: Glucose,Whole Blood 166 mg/dL (70-110)
[2023-10-04] MEDS: INSULIN ASPART (NovoLOG) 100 UNIT/ML VIAL SQ SCH ×4 (06:57→21:28)
[2023-10-04] MEDS: INSULIN DETEMIR (LEVEMIR) 100 UNIT/ML SYR SQ SCH (06:57)
[2023-10-04 07:33] LABS: ALT 20 U/L (4-34); AST 19 U/L (14-36); African American GFR (CKD) >90 (>60 ml/min/1.73 sqM); Albumin 2.9 g/dL (3.5-5.0); Alkaline Phosphatase 62 U/L (38-126); Anion Gap 6 mmol/L; Blood Urea Nitrogen 19 mg/dL (7-17); C Reactive Protein 5.5 mg/dL (<1.0); Calcium 8.2 mg/dL (8.4-10.2); Carbon Dioxide 31 mmol/L (22-30); Chloride 103 mmol/L (98-107); Glucose 165 mg/dL (74-99); Non-African American GFR(CKD) >90 (>60 ml/min/1.73 sqM); Potassium 4.1 mmol/L (3.5-5.1); Sodium 140 mmol/L (137-145); Total Bilirubin 0.3 mg/dL (0.2-1.3); Total Protein 5.1 g/dL (6.3-8.2)
[2023-10-04] MEDS: ENOXAPARIN 40 MG/0.4 ML SYRINGE SQ SCH (08:39)
[2023-10-04] MEDS: guaiFENesin 600 MG TABLET.ER PO SCH ×2 (08:40→20:04)
[2023-10-04] MEDS: DEXAMETHASONE SOD PHOSPHATE 10 MG/ML 1 ML VIAL IV SCH (08:40)
[2023-10-04] MEDS: FAMOTIDINE 20 MG/2 ML VIAL IV SCH ×2 (08:40→20:04)
[2023-10-04] MEDS: ASPIRIN 81 MG PO SCH (08:40)
[2023-10-04] MEDS: ASCORBIC ACID 500 MG TAB PO SCH ×2 (08:40→16:12)
[2023-10-04] MEDS: DIVALPROEX ER 500 MG TAB.ER.24H PO SCH (08:43)
--- NOTE | 2023-10-04 09:09 | XR ---
EXAMINATION TYPE: XR chest 1V portable DATE OF EXAM: 10/04/2023 Comparison: 10/03/2023 Clinical History: 63-year-old female ICU follow-up, shortness of breath, assess lungs Findings: Patient is obliqued towards the left and rotated towards the left limiting evaluation. Left CVC tip a t the lower SVC level. Heart upper limits of normal in size. Increased patchy retrocardiac and peripheral left basilar opaci ty. Impression: Limited obliqued and rotated exam. There is some increasing patchy retrocardiac and left basilar atel ectasis or infiltrate.
--- NOTE | 2023-10-04 09:50 | P.PN ---
Subjective Progress Note Date: 10/04/23 63-year-old female patient, senior care resident, known history of COPD with chronic hypoxic respiratory failure maintained on oxygen at 3 L per minute nasal cannula, morbidly obese with a body mass index of 42.9 in addition to chronic hypercapnic respiratory failure, presented to the MRSA protocol because of altered mental status and diminished level of consciousness. The patient is typically alert and oriented 2. There was no diminishment in her level of consciousness and is same time the patient was having respiratory distress. In the emergency, the patient was found to be hypoxic. The patient was placed on 100% nonrebreather facemask. Following that, the patient was placed on a BiPAP at a pressure of 12/6 with an FiO2 of 50%. Blood gas showed a pH of 7.4 with episodes of 55 and pO2 of 79. Chest x-ray was limited and there was some left basilar infiltration. Subsequently, the patient was given a CT angiogram that showed no evidence of any pulmonary embolism. There was tiny left-sided pleural effusion and left basilar consolidation with atelectasis. There is also background emphysema. The patient was given a total of 2 L of IV fluid bolus. Currently she is on norepinephrine at a low dose of 0.05 mcg/kg/m. The patient also received a dose of Zosyn in emergency department. CAT scan of the brain showed no acute process. It showed chronic atrophy. The viral screen was positive for Covid 19. This is her second infection. The patient was hospitalized back in 2021 for the same. Back then, she was Covid 19 positive. The patient had a white cell count of 10.3, hemoglobin of 11, normal coagulation profile, BUN of 12 with a creatinine of 0.5 and a sodium of 139. Troponins are negative. ProBNP is 399. UA was abnormal with 27 WBCs. Many bacteria. On today's evaluation of 10/02/2023, seeing the patient for a follow-up. Seems to be more awake and alert compared to yesterday. The patient is following simple commands. She is able to move all 4 extremities upon command. She is on a BiPAP at a pressure of 12 over his centimeters of water and FiO2 has been dropped onto 40%. Chest x-ray remains unchanged and there is some limited left lower lobe consolidation and the patient is currently on steroids regarding her Covid 19 infection and she is also on IV Zosyn regarding possibility of a pneumonia/aspiration of the left lower lobe. She received a total of 2 L of fluid bolus yesterday currently IV fluids are running at 100 mL an hour. She is normotensive. She is on no pressors. Her blood work today shows a BUN of 14 with a creatinine of 0.35, sodium level is at 139 with a potassium of 4.0. Serum bicarb is at 31. The white cell count is at 9.2 with a hemoglobin of 10.3 and a platelet count of 163. LFTs are essentially within normal limits. Her CRP level was 30. Had hemoglobin A1c is at X.7. She is able to tolerate the BiPAP without having any major difficulties speech is on Decadron 6 mg IV every 24 hours. She is currently off pressors. She is on NovoLog sliding scale coverage. She is also on Lovenox for DVT prophylaxis. D-dimer is are pending. Doppler of the lower extremity is also pending. She may need to go back on his psychotropic medication including clozapine 20 mg at bedtime. She'll be also started back on her Depakote 1.5 g at bedtime. Note that the patient takes prednisone on outpatient basis a dose of 10 mg by mouth daily on a daily basis. She has been maintained also on low-dose anticoagulation/ xarelto , the exact cause for that is not known. 10/03/2023, the patient is much more alert and awake and she is off the BiPAP and she is currently on oxygen at 3 L. She did not use the BiPAP overnight. H er chest x-ray shows adequate expansion of both lungs. No airspace disease of consolidation. She remains on Decadron. She remains on IV Zosyn. Hemodynamically stable. She is on no pressors. She has a white cell count of 6.8, hemoglobin is 9.7 and sodium levels of 141 with a potassium level of 4.3, BUN is at 17 with a creatinine of 0.4. Her d-dimer was negative at 0.54. Doppler of the lower extremities was also negative. As such, the exact cause for her low-dose anticoagulation still not clear. The patient is currently on Lovenox for DVT prophylaxis 40 mg subcu daily. The patient is also on Levemir insulin 10 units and she is also on sliding scale coverage. 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 She is lethargic and she is arousable and she is communicating and she is alert to self and place. She noted that she was in [facility]. On 10/04/2023, the patient is tolerating the BiPAP pressure of 12/6 and FiO2 of 30%. The patient slept at around 2 AM and she has been sleeping since on a BiPAP. Chest x-ray shows no interval change. No nighttime was essentially uneventful. The patient is tolerating BiPAP extremely well and was off the BiPAP she goes on 3 L of oxygen by nasal cannula. Hemoglobin is at 9.3, white cycles at 6.4. BUN is at 19 with a creatinine of 0.49 and his sodium levels of 140. The patient is calm and comfortable and she is hemodynamically stable. She remains on Decadron 6 mg IV every 24 hours speech is also on Lovenox. She is on antibiotic coverage which is a broad-spectrum antibiotic coverage with IV Zosyn. Her chest x-ray from today is essentially unchanged and clear. Objective - Vital Signs Vital signs: Vital Signs Temp 97.7 F 10/04/23 04:00 Pulse 55 L 10/04/23 07:00 Resp 18 10/04/23 07:00 BP 137/73 10/04/23 07:00 Pulse Ox 99 10/04/23 07:00 FiO2 40 10/04/23 07:36 Intake & Output 10/03/23 10/04/23 10/04/23 18:59 06:59 18:59 Intake Total 540 480 40 Output Total 0 150 40 Balance 540 330 0 Weight 130.4 kg Intake: IV 540 480 40 Piperacillin-Tazobactam 3 100 .375 gm In Sodium Chloride 0.9% 100 ml @ 25 mls/hr IVPB Q8H [facility] Rx#: [id number] Sodium Chloride 0.9% 1, 440 480 40 000 ml @ 40 mls/hr IV . Q24H [facility] Rx#:[id number] Output: Urine 0 150 40 Other: Voiding Method External Catheter External Catheter # Voids 1 2 # Bowel Movements 1 - Exam GENERAL EXAM: Somnolent, still limited confusion is currently on a BiPAP at a pressure of 12 was 6 with an FiO2 of 30%, arousable Morbidly obese with a body mass index of 42.9 HEAD: Normocephalic/atraumatic. EYES: Normal reaction of pupils, equal size. Conjunctiva pink, sclera white. NOSE: Clear with pink turbinates. THROAT: No erythema or exudates. NECK: No masses, no JVD, no thyroid enlargement, no adenopathy. CHEST: No chest wall deformity. Symmetrical expansion. Diminished breath sounds bilaterally especially in the lung bases LUNGS: Equal air entry with no crackles, wheeze, rhonchi or dullness. CVS: Regular rate and rhythm, normal S1 and S2, no gallops, no murmurs, no rubs ABDOMEN: Soft, nontender. No hepatosplenomegaly, normal bowel sounds, no guarding or rigidity. EXTREMITIES: No clubbing, no edema, no cyanosis, 2+ pulses and upper and lower extremities. MUSCULOSKELETAL: Muscle strength and tone normal. SPINE: No scoliosis or deformity SKIN: No rashes CENTRAL NERVOUS SYSTEM: Awake and communicating at this point in time, moving all 4 extremities PSYCHIATRIC: Alert and oriented -2. Appropriate affect. Intact judgment and insight. - Labs CBC & Chem 7: 10/04/23 05:36 10/04/23 05:36 Labs: Abnormal Lab Results - Last 24 Hours (Table) 10/03/23 10/03/23 10/03/23 Range/Units 11:27 16:18 19:55 RBC (3.80-5.40) m/uL Hgb (11.4-16.0) gm/dL Hct (34.0-46.0) % Carbon Dioxide (22-30) mmol/L BUN (7-17) mg/dL Creatinine (0.52-1.04) mg/dL Glucose (74-99) mg/dL POC Glucose (mg/dL) 260 H 197 H 230 H (70-110) mg/dL Calcium (8.4-10.2) mg/dL C-Reactive Protein (<1.0) mg/dL Total Protein (6.3-8.2) g/dL Albumin (3.5-5.0) g/dL 10/04/23 10/04/23 10/04/23 Range/Units 00:26 04:28 05:36 RBC 3.12 L (3.80-5.40) m/uL Hgb 9.3 L (11.4-16.0) gm/dL Hct 29.4 L (34.0-46.0) % Carbon Dioxide (22-30) mmol/L BUN (7-17) mg/dL Creatinine (0.52-1.04) mg/dL Glucose (74-99) mg/dL POC Glucose (mg/dL) 204 H 187 H (70-110) mg/dL Calcium (8.4-10.2) mg/dL C-Reactive Protein (<1.0) mg/dL Total Protein (6.3-8.2) g/dL Albumin (3.5-5.0) g/dL 10/04/23 10/04/23 Range/Units 05:36 06:54 RBC (3.80-5.40) m/uL Hgb (11.4-16.0) gm/dL Hct (34.0-46.0) % Carbon Dioxide 31 H (22-30) mmol/L BUN 19 H (7-17) mg/dL Creatinine 0.49 L (0.52-1.04) mg/dL Glucose 165 H (74-99) mg/dL POC Glucose (mg/dL) 166 H (70-110) mg/dL Calcium 8.2 L (8.4-10.2) mg/dL C-Reactive Protein 5.5 H (<1.0) mg/dL Total Protein 5.1 L (6.3-8.2) g/dL Albumin 2.9 L (3.5-5.0) g/dL Microbiology - Last 24 Hours (Table) 10/01/23 13:53 Blood Culture - Preliminary Blood 10/01/23 13:53 Blood Culture - Preliminary Blood Assessment and Plan Plan: Acute hypoxic respiratory failure, multifactorial. The patient is known to have COPD in addition to that the patient has developed an acute Covid 19 infection. There is a left lower lobe consolidation with atelectasis pleural effusion, consider underlying bacterial pneumonia. Pulmonary embolism is felt to be less likely. Dimer was negative. Doppler of the lower extremities were negative. Chest x-ray showing improvement and the patient is currently off the BiPAP on 3 L of oxygen nasal cannula. The patient is alternating between the BiPAP and oxygen at 3 L. Overnight, she goes on a BiPAP. Chest x-ray findings of essentially stable and clear. Acute Covid 19 infection. Second infection and initial infection was back in 2021. Vaccination status is not known. Her previous infection was in October 2021 Altered mentation, acute on top of chronic. The patient has based on limitation mentation as the patient has chronic cognitive impairment of schizophrenia, improving, the confusion is also improving. Acute hypotension, likely hypovolemic currently off pressors and the patient is on saline at rate of 40 mL an hour. Morbid obesity with a BMI of 42.9 Chronic hypoxic and hypercapnic respiratory failure, typically admitted on oxygen at 2 L/m nasal cannula Chronic lower extremity edema Diabetes mellitus type 2 Hypertension Hyperlipidemia Impairment baseline performance of functional status and the patient is a senior care resident with a full CODE STATUS. She is a legal guardian Plan Give the patient oxygen by nasal cannula at 3 L, maintained on a BiPAP overnight as the patient is obviously just of obstructive sleep apnea The IV Fluids to 40 ML an Hour Established a triple-lumen catheter yesterday Continue IV Zosyn Continue Decadron 6 mg IV every 24 hours Levemir 10 units daily along with a sliding scale coverage Monitor blood gases Patient on Depakote and the Clozaril Liquid diet Lovenox 40 mg subcu portably prophylaxis IV Protonix Patient has maintain on 10 mg of xarelto on outpatient basis. The exact cause is not clear. d Dimer" NEGATIVE, Doppler lower extremities were negative We'll check lower extremity Dopplers Condition is improved Tolerating diet and the patient may transfer out of the intensive care unit the later stage..
[2023-10-04 12:20] LABS: Glucose,Whole Blood 216 mg/dL (70-110)
[2023-10-04] MEDS: NOREPINEPHRINE 4 MG in SODIUM CHLORIDE 0.9% 250 ML IV SCH (14:34)
[2023-10-04] MEDS: ZINC SULFATE 220 MG CAP PO SCH (16:12)
[2023-10-04 16:18] LABS: Glucose,Whole Blood 284 mg/dL (70-110)
[2023-10-04] MEDS: ATORVASTATIN 20 MG TAB PO SCH (20:04)
[2023-10-04] MEDS: cloZAPine 100 MG TAB PO SCH (20:04)
[2023-10-04 20:44] LABS: Glucose,Whole Blood 254 mg/dL (70-110)
[2023-10-05 00:13] LABS: Glucose,Whole Blood 198 mg/dL (70-110)
[2023-10-05] MEDS: SODIUM CHLORIDE 0.9% 1,000 ML IV SCH (02:13)
[2023-10-05 04:04] LABS: Glucose,Whole Blood 206 mg/dL (70-110)
[2023-10-05] MEDS: PIPERACILLIN-TAZOBACTAM 3.375 GM in SODIUM CHLORIDE 0.9% 100 ML IVPB SCH ×3 (05:26→21:33)
[2023-10-05 06:12] LABS: Basophils % (A) 0 %; Eosinophils % (A) 0 %; HCT 32.1 % (34.0-46.0); HGB 10.1 gm/dL (11.4-16.0); Hypochromasia Moderate; Lymphocytes # (A) 1.6 k/uL (1.0-4.8); Lymphocytes % (A) 30 %; MCH 29.3 pg (25.0-35.0); MCHC 31.4 g/dL (31.0-37.0); MCV 93.5 fL (80.0-100.0); Mean Platelet Volume 7.9; Monocytes # (A) 0.4 k/uL (0-1.0); Monocytes % (A) 7 %; Neutrophils # (A) 3.2 k/uL (1.3-7.7); Neutrophils % (A) 61 %; Platelet Count 215 k/uL (150-450); RBC 3.44 m/uL (3.80-5.40); RDW 15.1 % (11.5-15.5); WBC 5.3 k/uL (3.8-10.6)
[2023-10-05 06:22] LABS: African American GFR (CKD) >90 (>60 ml/min/1.73 sqM); Anion Gap 6 mmol/L; Blood Urea Nitrogen 19 mg/dL (7-17); Calcium 8.6 mg/dL (8.4-10.2); Carbon Dioxide 31 mmol/L (22-30); Chloride 104 mmol/L (98-107); Glucose 165 mg/dL (74-99); Non-African American GFR(CKD) >90 (>60 ml/min/1.73 sqM); Potassium 4.1 mmol/L (3.5-5.1); Sodium 141 mmol/L (137-145)
[2023-10-05 06:46] LABS: Glucose,Whole Blood 183 mg/dL (70-110)
[2023-10-05] MEDS: INSULIN ASPART (NovoLOG) 100 UNIT/ML VIAL SQ SCH ×4 (06:49→20:43)
[2023-10-05] MEDS: INSULIN DETEMIR (LEVEMIR) 100 UNIT/ML SYR SQ SCH (06:49)
[2023-10-05] MEDS: NOREPINEPHRINE 4 MG in SODIUM CHLORIDE 0.9% 250 ML IV SCH (07:40)
--- NOTE | 2023-10-05 08:20 | P.PN ---
Subjective Progress Note Date: 10/05/23 63-year-old female patient, [facility] resident, known history of COPD with chronic hypoxic respiratory failure maintained on oxygen at 3 L per minute nasal cannula, morbidly obese with a body mass index of 42.9 in addition to chronic hypercapnic respiratory failure, presented to the MRSA protocol because of altered mental status and diminished level of consciousness. The patient is typically alert and oriented 2. There was no diminishment in her level of consciousness and is same time the patient was having respiratory distress. In the emergency, the patient was found to be hypoxic. The patient was placed on 100% nonrebreather facemask. Following that, the patient was placed on a BiPAP at a pressure of 12/6 with an FiO2 of 50%. Blood gas showed a pH of 7.4 with episodes of 55 and pO2 of 79. Chest x-ray was limited and there was some left basilar infiltration. Subsequently, the patient was given a CT angiogram that showed no evidence of any pulmonary embolism. There was tiny left-sided pleural effusion and left basilar consolidation with atelectasis. There is also background emphysema. The patient was given a total of 2 L of IV fluid bolus. Currently she is on norepinephrine at a low dose of 0.05 mcg/kg/m. The patient also received a dose of Zosyn in emergency department. CAT scan of the brain showed no acute process. It showed chronic atrophy. The viral screen was positive for Covid 19. This is her second infection. The patient was hospitalized back in 2021 for the same. Back then, she was Covid 19 positive. The patient had a white cell count of 10.3, hemoglobin of 11, normal coagulation profile, BUN of 12 with a creatinine of 0.5 and a sodium of 139. Troponins are negative. ProBNP is 399. UA was abnormal with 27 WBCs. Many bacteria. On today's evaluation of 10/02/2023, seeing the patient for a follow-up. Seems to be more awake and alert compared to yesterday. The patient is following simple commands. She is able to move all 4 extremities upon command. She is on a BiPAP at a pressure of 12 over his centimeters of water and FiO2 has been dropped onto 40%. Chest x-ray remains unchanged and there is some limited left lower lobe consolidation and the patient is currently on steroids regarding her Covid 19 infection and she is also on IV Zosyn regarding possibility of a pneumonia/aspiration of the left lower lobe. She received a total of 2 L of fluid bolus yesterday currently IV fluids are running at 100 mL an hour. She is normotensive. She is on no pressors. Her blood work today shows a BUN of 14 with a creatinine of 0.35, sodium level is at 139 with a potassium of 4.0. Serum bicarb is at 31. The white cell count is at 9.2 with a hemoglobin of 10.3 and a platelet count of 163. LFTs are essentially within normal limits. Her CRP level was 30. Had hemoglobin A1c is at X.7. She is able to tolerate the BiPAP without having any major difficulties speech is on Decadron 6 mg IV every 24 hours. She is currently off pressors. She is on NovoLog sliding scale coverage. She is also on Lovenox for DVT prophylaxis. D-dimer is are pending. Doppler of the lower extremity is also pending. She may need to go back on his psychotropic medication including clozapine 20 mg at bedtime. She'll be also started back on her Depakote 1.5 g at bedtime. Note that the patient takes prednisone on outpatient basis a dose of 10 mg by mouth daily on a daily basis. She has been maintained also on low-dose anticoagulation/ xarelto , the exact cause for that is not known. 10/03/2023, the patient is much more alert and awake and she is off the BiPAP and she is currently on oxygen at 3 L. She did not use the BiPAP overnight. H er chest x-ray shows adequate expansion of both lungs. No airspace disease of consolidation. She remains on Decadron. She remains on IV Zosyn. Hemodynamically stable. She is on no pressors. She has a white cell count of 6.8, hemoglobin is 9.7 and sodium levels of 141 with a potassium level of 4.3, BUN is at 17 with a creatinine of 0.4. Her d-dimer was negative at 0.54. Doppler of the lower extremities was also negative. As such, the exact cause for her low-dose anticoagulation still not clear. The patient is currently on Lovenox for DVT prophylaxis 40 mg subcu daily. The patient is also on Levemir insulin 10 units and she is also on sliding scale coverage. 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 She is lethargic and she is arousable and she is communicating and she is alert to self and place. She noted that she was in [facility]. On 10/04/2023, the patient is tolerating the BiPAP pressure of 12/6 and FiO2 of 30%. The patient slept at around 2 AM and she has been sleeping since on a BiPAP. Chest x-ray shows no interval change. No nighttime was essentially uneventful. The patient is tolerating BiPAP extremely well and was off the BiPAP she goes on 3 L of oxygen by nasal cannula. Hemoglobin is at 9.3, white cycles at 6.4. BUN is at 19 with a creatinine of 0.49 and his sodium levels of 140. The patient is calm and comfortable and she is hemodynamically stable. She remains on Decadron 6 mg IV every 24 hours speech is also on Lovenox. She is on antibiotic coverage which is a broad-spectrum antibiotic coverage with IV Zosyn. Her chest x-ray from today is essentially unchanged and clear. On 10/05/2023, the patient is still sleepy and she slept all day yesterday while being on a BiPAP. This morning, she is on 3 L of oxygen by nasal cannula. The chest x-ray shows some fullness in the right infrahilar area and probably some right infrahilar atelectasis/consolidation. There is some atelectatic changes also in the left lung base. The white suppositive 5.3 with a hemoglobin of 10.1. Electrolytes are all within normal limits. Sodium level is at 141, bicarb is at 31, BUN is at 19 with a creatinine of 0.5. No apparent respiratory distress at rest. Occasional cough. No significant sputum production. Remains on Decadron 6 mg IV every 24 hours. Remains on IV Zosyn. Remains on IV fluids at 40 mL an hour. Remains on Depakote and clozapine and was also added at her usual dose of 200 mg at bedtime. She remains on Lovenox for DVT prophylaxis. No other significant events. She has a left IJ triple-lumen catheter Objective - Vital Signs Vital signs: Vital Signs Temp 97.8 F 10/05/23 04:00 Pulse 48 L 10/05/23 07:00 Resp 18 10/05/23 07:00 BP 154/83 10/05/23 07:00 Pulse Ox 96 10/05/23 07:00 FiO2 40 10/05/23 04:00 Intake & Output 10/04/23 10/05/23 10/05/23 18:59 06:59 18:59 Intake Total 1540 550 50 Output Total 560 950 Balance 980 -400 50 Weight 130.6 kg Intake: IV 640 550 50 Sodium Chloride 0.9% 1, 640 550 50 000 ml @ 40 mls/hr IV . Q24H [facility] Rx#:[id number] Oral 550 Blood Product 350 Output: Urine 560 950 Other: Voiding Method External Catheter External Catheter # Voids 1 - Exam GENERAL EXAM: Somnolent, currently on 3 L of oxygen by nasal cannula Morbidly obese with a body mass index of 42.9 HEAD: Normocephalic/atraumatic. EYES: Normal reaction of pupils, equal size. Conjunctiva pink, sclera white. NOSE: Clear with pink turbinates. THROAT: No erythema or exudates. NECK: No masses, no JVD, no thyroid enlargement, no adenopathy. CHEST: No chest wall deformity. Symmetrical expansion. Diminished breath so unds bilaterally especially in the lung bases LUNGS: Equal air entry with no crackles, wheeze, rhonchi or dullness. CVS: Regular rate and rhythm, normal S1 and S2, no gallops, no murmurs, no rubs ABDOMEN: Soft, nontender. No hepatosplenomegaly, normal bowel sounds, no guarding or rigidity. EXTREMITIES: No clubbing, no edema, no cyanosis, 2+ pulses and upper and lower extremities. MUSCULOSKELETAL: Muscle strength and tone normal. SPINE: No scoliosis or deformity SKIN: No rashes CENTRAL NERVOUS SYSTEM: Awake and communicating at this point in time, moving all 4 extremities PSYCHIATRIC: Alert and oriented -2. Appropriate affect. Intact judgment and insight. - Labs CBC & Chem 7: 10/05/23 05:55 10/05/23 05:55 Labs: Abnormal Lab Results - Last 24 Hours (Table) 10/04/23 10/04/23 10/04/23 Range/Units 12:18 16:16 20:43 RBC (3.80-5.40) m/uL Hgb (11.4-16.0) gm/dL Hct (34.0-46.0) % Carbon Dioxide (22-30) mmol/L BUN (7-17) mg/dL Glucose (74-99) mg/dL POC Glucose (mg/dL) 216 H 284 H 254 H (70-110) mg/dL 10/05/23 10/05/23 10/05/23 Range/Units 00:12 04:02 05:55 RBC 3.44 L (3.80-5.40) m/uL Hgb 10.1 L (11.4-16.0) gm/dL Hct 32.1 L (34.0-46.0) % Carbon Dioxide (22-30) mmol/L BUN (7-17) mg/dL Glucose (74-99) mg/dL POC Glucose (mg/dL) 198 H 206 H (70-110) mg/dL 10/05/23 10/05/23 Range/Units 05:55 06:45 RBC (3.80-5.40) m/uL Hgb (11.4-16.0) gm/dL Hct (34.0-46.0) % Carbon Dioxide 31 H (22-30) mmol/L BUN 19 H (7-17) mg/dL Glucose 165 H (74-99) mg/dL POC Glucose (mg/dL) 183 H (70-110) mg/dL Microbiology - Last 24 Hours (Table) 10/01/23 13:53 Blood Culture - Preliminary Blood 10/01/23 13:53 Blood Culture - Preliminary Blood Assessment and Plan Plan: Acute hypoxic respiratory failure, multifactorial. The patient is known to have COPD in addition to that the patient has developed an acute Covid 19 infection. There is a left lower lobe consolidation with atelectasis pleural effusion, consider underlying bacterial pneumonia. Pulmonary embolism is felt to be less likely. Dimer was negative. Doppler of the lower extremities were negative. Chest x-ray is showing a left basilar atelectasis of the right infrahilar fullness. She remains on IV Zosyn. She remains on Decadron. Overnight, she is utilizing the BiPAP and currently she is on 3 L of oxygen by nasal cannula Hypersomnia, could be related to obstructive sleep apnea. Could be related to her medications as the patient is taking Clozaril 200 mg at bedtime. We'll check a blood gas to rule out any hypercapnic respiratory failure and CO2 narcosis. She is currently on 3 L of oxygen by nasal cannula. Acute Covid 19 infection. Second infection and initial infection was back in 2021. Vaccination status is not known. Her previous infection was in October 2021 Altered mentation, acute on top of chronic. The patient has based on limitation mentation as the patient has chronic cognitive impairment of schizophrenia, improving, the confusion is also improving. Acute hypotension, recovered Morbid obesity with a BMI of 42.9 Chronic hypoxic and hypercapnic respiratory failure, typically admitted on oxygen at 2 L/m nasal cannula Chronic lower extremity edema Diabetes mellitus type 2 Hypertension Hyperlipidemia Impairment baseline performance of functional status and the patient is a [facility] resident with a full CODE STATUS. She is a legal guardian Plan Check a blood gas on 3 L of O2 nasal cannula BiPAP overnight The IV Fluids to 40 ML an Hour Discontinue the triple-lumen catheter Continue IV Zosyn Continue Decadron 6 mg IV every 24 hours Levemir 10 units daily along with a sliding scale coverage Patient on Depakote and the Clozaril Liquid diet Lovenox 40 mg subcu portably prophylaxis IV Protonix Patient has maintain on 10 mg of xarelto on outpatient basis. The exact cause is not clear. d Dimer" NEGATIVE, Doppler lower extremities were negative Doppler of the lower extremities were negative Condition is improved Tolerating diet and the patient may transfer out of the intensive care unit the later stage..
[2023-10-05 08:43] LABS: ABG Base Excess 10.7 mmol/L; ABG HCO3 35 mmol/L (21-25); ABG Oxygen Saturation 96.9 % (94-97); ABG PCO2 56 mmHg (35-45); ABG PH 7.41 (7.35-7.45); ABG PO2 85 mmHg (83-108); ABG TCO2 37 mmol/L (19-24); Allen Test Performed? Yes
[2023-10-05] MEDS: ENOXAPARIN 40 MG/0.4 ML SYRINGE SQ SCH (08:53)
[2023-10-05] MEDS: guaiFENesin 600 MG TABLET.ER PO SCH ×2 (08:54→20:38)
[2023-10-05] MEDS: DEXAMETHASONE SOD PHOSPHATE 10 MG/ML 1 ML VIAL IV SCH (08:54)
[2023-10-05] MEDS: ASCORBIC ACID 500 MG TAB PO SCH ×2 (08:54→16:35)
[2023-10-05] MEDS: DIVALPROEX ER 500 MG TAB.ER.24H PO SCH (08:54)
[2023-10-05] MEDS: FAMOTIDINE 20 MG/2 ML VIAL IV SCH ×2 (08:54→20:38)
[2023-10-05] MEDS: ASPIRIN 81 MG PO SCH (08:54)
--- NOTE | 2023-10-05 11:10 | XR ---
EXAMINATION TYPE: XR chest 1V DATE OF EXAM: 10/05/2023 COMPARISON: 10/04/2023 HISTORY: 63 year-old female: Infection TECHNIQUE: Single frontal view of the chest is obtained. FINDINGS: Left IJ CVC tip at the lower SVC level. Current exam is probably rotated towards the left altering the normal cardiomediastinal contours. Unable to exclude worsening opacity in the medial rig ht base. Similar opacity at the peripheral left base. Heart upper limits of normal in size. IMPRESSION: Limited, rotated exam. Unable to exclude worsening focal opacities at the right base. Similar opacity at the peripheral left base.
[2023-10-05 11:38] LABS: Glucose,Whole Blood 212 mg/dL (70-110)
[2023-10-05] MEDS: ZINC SULFATE 220 MG CAP PO SCH (16:36)
[2023-10-05 16:41] LABS: Glucose,Whole Blood 274 mg/dL (70-110)
[2023-10-05] MEDS: ATORVASTATIN 20 MG TAB PO SCH (20:38)
[2023-10-05] MEDS: cloZAPine 100 MG TAB PO SCH (20:38)
[2023-10-05 20:42] LABS: Glucose,Whole Blood 250 mg/dL (70-110)
[2023-10-06 00:06] LABS: Glucose,Whole Blood 271 mg/dL (70-110)
[2023-10-06] MEDS: SODIUM CHLORIDE 0.9% 1,000 ML IV SCH (00:56)
[2023-10-06 05:11] LABS: Glucose,Whole Blood 195 mg/dL (70-110)
[2023-10-06] MEDS: NOREPINEPHRINE 4 MG in SODIUM CHLORIDE 0.9% 250 ML IV SCH ×2 (05:11→19:43)
[2023-10-06] MEDS: PIPERACILLIN-TAZOBACTAM 3.375 GM in SODIUM CHLORIDE 0.9% 100 ML IVPB SCH ×3 (05:19→20:59)
[2023-10-06 06:34] LABS: Glucose,Whole Blood 186 mg/dL (70-110)
[2023-10-06] MEDS: INSULIN DETEMIR (LEVEMIR) 100 UNIT/ML SYR SQ SCH (06:44)
[2023-10-06] MEDS: INSULIN ASPART (NovoLOG) 100 UNIT/ML VIAL SQ SCH ×4 (06:44→20:58)
--- NOTE | 2023-10-06 07:05 | P.PN ---
Subjective 63-year-old lady with past medical history significant for COPD, chronic hypoxia, diabetes mellitus, hyperlipidemia, hypertension, morbid obesity, schizophrenia, presents from [facility] with altered mentation. History is limited patient is altered and no family or caregivers at bedside Per chart review patient was sent in for altered mental status and respiratory failure. According to EMS report patient received fromin-home for respiratory distress. Patient had symptom onset 3 days ago. While at the facility patient was noted to be hypoxic and had saturation in 80%. Patient does have history of severe COPD as well as had similar presentation in 2021 when she was admitted with Covid 19 Initiated in ER included CBC which were WBC of 10.3 hemoglobin 11.1 platelet count of 178 with elevated neutrophil count Arterial blood gas obtained showed pH 7.4 pCO2 55 pO2 79 Serum chemistry shows sodium 139 potassium 3.8, and Axert 35 BUNs 12 cre atinine 0.5 glucose 180 Ammonia within normal limits initial troponin 0.012 N-terminal proBNP 399 albumin of 3.3 Urinalysis obtained showed few WBC and urine many bacteria Patient tested negative for influenza and RSV, positive for COVID-19 CT head obtained in ED was negative for acute intracranial process, chest x- ray was obtained which was negative for acute process however chronic changes noted Patient was given 2 L of fluid bolus in ER and started on levo fed for hypotension, intensive care unit team was contacted. Patient was also given 1 dose of Zosyn in ED which will be continued 10/02/2023: Patient seen and evaluated in intensive care unit, patient is on BiPAP, does open eyes to verbal stimulus, following instructions as well however review of system limited secondary to underlying critical illness. Patient followed up by medical ICU team as well. Patient has a sitter at bedside. Patient started back on the antipsychotic medications including clozapine and Depakote, patient receiving levo fed central line in place left IJ 10/03/2023: Patient seen and evaluated bedside, mentation has improved, the patient is following commands patient on 3 L of oxygen. Blood work shows hemoglobin 9.7 WBC within normal limits. Serum chemistry Improved 10/04/2023 patient awake, lethargic Breathing is improving, does not use BiPAP at night Consented 3 L oxygen via nasal cannula Leukocytosis D-dimer negative She remains on Zosyn and dexamethasone Objective - Vital Signs Vital signs: Vital Signs Temp 97.7 F 10/04/23 04:00 Pulse 55 L 10/04/23 07:00 Resp 18 10/04/23 07:00 BP 137/73 10/04/23 07:00 Pulse Ox 99 10/04/23 07:00 FiO2 40 10/04/23 07:36 Intake & Output 10/03/23 10/04/23 10/04/23 18:59 06:59 18:59 Intake Total 540 480 40 Output Total 0 150 40 Balance 540 330 0 Weight 130.4 kg Intake: IV 540 480 40 Piperacillin-Tazobactam 3 100 .375 gm In Sodium Chloride 0.9% 100 ml @ 25 mls/hr IVPB Q8H [facility] Rx#: [id number] Sodium Chloride 0.9% 1, 440 480 40 000 ml @ 40 mls/hr IV . Q24H [facility] Rx#:[id number] Output: Urine 0 150 40 Other: Voiding Method External Catheter External Catheter # Voids 1 2 # Bowel Movements 1 - Exam -GENERAL: The patient is alert and oriented x3, not in any acute distress. Well developed, morbidly obese HEENT: Pupils are round and equally reacting to light. EOMI. No scleral icterus. No conjunctival pallor. Normocephalic, atraumatic. No pharyngeal erythema. No thyromegaly. CARDIOVASCULAR: S1 and S2 present. No murmurs, rubs, or gallops. PULMONARY: Chest is clear to auscultation, no wheezing , no crackles. ABDOMEN: Soft, nontender, nondistended, normoactive bowel sounds. No palpable organomegaly. MUSCULOSKELETAL: No joint swelling or deformity. EXTREMITIES: No cyanosis, clubbing, or pedal edema. NEUROLOGICAL: Gross neurological examination did not reveal any focal deficits. SKIN: No rashes. no petechiae. - Labs CBC & Chem 7: 10/05/23 05:55 10/05/23 05:55 Labs: Abnormal Lab Results - Last 24 Hours (Table) 10/03/23 10/03/23 10/04/23 Range/Units 16:18 19:55 00:26 RBC (3.80-5.40) m/uL Hgb (11.4-16.0) gm/dL Hct (34.0-46.0) % Carbon Dioxide (22-30) mmol/L BUN (7-17) mg/dL Creatinine (0.52-1.04) mg/dL Glucose (74-99) mg/dL POC Glucose (mg/dL) 197 H 230 H 204 H (70-110) mg/dL Calcium (8.4-10.2) mg/dL C-Reactive Protein (<1.0) mg/dL Total Protein (6.3-8.2) g/dL Albumin (3.5-5.0) g/dL 10/04/23 10/04/23 10/04/23 Range/Units 04:28 05:36 05:36 RBC 3.12 L (3.80-5.40) m/uL Hgb 9.3 L (11.4-16.0) gm/dL Hct 29.4 L (34.0-46.0) % Carbon Dioxide 31 H (22-30) mmol/L BUN 19 H (7-17) mg/dL Creatinine 0.49 L (0.52-1.04) mg/dL Glucose 165 H (74-99) mg/dL POC Glucose (mg/dL) 187 H (70-110) mg/dL Calcium 8.2 L (8.4-10.2) mg/dL C-Reactive Protein 5.5 H (<1.0) mg/dL Total Protein 5.1 L (6.3-8.2) g/dL Albumin 2.9 L (3.5-5.0) g/dL 10/04/23 Range/Units 06:54 RBC (3.80-5.40) m/uL Hgb (11.4-16.0) gm/dL Hct (34.0-46.0) % Carbon Dioxide (22-30) mmol/L BUN (7-17) mg/dL Creatinine (0.52-1.04) mg/dL Glucose (74-99) mg/dL POC Glucose (mg/dL) 166 H (70-110) mg/dL Calcium (8.4-10.2) mg/dL C-Reactive Protein (<1.0) mg/dL Total Protein (6.3-8.2) g/dL Albumin (3.5-5.0) g/dL Microbiology - Last 24 Hours (Table) 10/01/23 13:53 Blood Culture - Preliminary Blood 10/01/23 13:53 Blood Culture - Preliminary Blood Assessment and Plan Assessment: Acute on chronic hypoxic respiratory failure, with acute exacerbation of COPD Covid 19 while pneumonia with severe acute respiratory distress , improving Acute metabolic encephalopathy with hypercapnia, improving Severe sepsis with septic shock, resolved Diabetes mellitus type 2 Hypertension Hyperlipidemia Lymphedema chronic lower extremity Morbid obesity with BMI 42.9 History of schizophrenia Morbid obesity with BMI of 48 Plan: Continue with Zosyn Continue with his aunt BiPAP as needed, currently untreated oxygen Pulmonary team on the case Labs and medication were reviewed.. Continue same treatment. Continue with symptomatic treatment. Resume home medication. Monitor labs and vitals. DVT and GI prophylaxis. Further recommendations as per clinical course of the patient DVT prophylaxis: Subcutaneous Lovenox GI Prophylaxis: Pepcid PT/OT: Pending Prognosis is guarded
--- NOTE | 2023-10-06 07:09 | P.PN ---
Subjective 63-year-old lady with past medical history significant for COPD, chronic hypoxia, diabetes mellitus, hyperlipidemia, hypertension, morbid obesity, schizophrenia, presents from [facility] with altered mentation. History is limited patient is altered and no family or caregivers at bedside Per chart review patient was sent in for altered mental status and respiratory failure. According to EMS report patient received fromin-home for respiratory distress. Patient had symptom onset 3 days ago. While at the facility patient was noted to be hypoxic and had saturation in 80%. Patient does have history of severe COPD as well as had similar presentation in 2021 when she was admitted with Covid 19 Initiated in ER included CBC which were WBC of 10.3 hemoglobin 11.1 platelet count of 178 with elevated neutrophil count Arterial blood gas obtained showed pH 7.4 pCO2 55 pO2 79 Serum chemistry shows sodium 139 potassium 3.8, and Axert 35 BUNs 12 cre atinine 0.5 glucose 180 Ammonia within normal limits initial troponin 0.012 N-terminal proBNP 399 albumin of 3.3 Urinalysis obtained showed few WBC and urine many bacteria Patient tested negative for influenza and RSV, positive for COVID-19 CT head obtained in ED was negative for acute intracranial process, chest x- ray was obtained which was negative for acute process however chronic changes noted Patient was given 2 L of fluid bolus in ER and started on levo fed for hypotension, intensive care unit team was contacted. Patient was also given 1 dose of Zosyn in ED which will be continued 10/02/2023: Patient seen and evaluated in intensive care unit, patient is on BiPAP, does open eyes to verbal stimulus, following instructions as well however review of system limited secondary to underlying critical illness. Patient followed up by medical ICU team as well. Patient has a sitter at bedside. Patient started back on the antipsychotic medications including clozapine and Depakote, patient receiving levo fed central line in place left IJ 10/03/2023: Patient seen and evaluated bedside, mentation has improved, the patient is following commands patient on 3 L of oxygen. Blood work shows hemoglobin 9.7 WBC within normal limits. Serum chemistry Improved 10/04/2023 patient awake, lethargic Breathing is improving, does not use BiPAP at night Consented 3 L oxygen via nasal cannula Leukocytosis D-dimer negative She remains on Zosyn and dexamethasone 10/05/2023 Patient continued to improve slowly and gradually She is using BiPAP less frequently Continue on related to her oxygen via nasal cannula No other new complaints Hemodynamically stable, the STAPLE Repeat chest x-ray showing better inflation bouts persistent infiltrate in the right mid lung and the left lower zone Continue on Zosyn and dexamethasone Objective - Vital Signs Vital signs: Vital Signs Temp 98.4 F 10/05/23 08:00 Pulse 57 L 10/05/23 11:00 Resp 24 10/05/23 11:00 BP 138/73 10/05/23 11:00 Pulse Ox 91 L 10/05/23 11:00 FiO2 40 10/05/23 04:00 Intake & Output 10/04/23 10/05/23 10/05/23 18:59 06:59 18:59 Intake Total 1540 550 100 Output Total 560 950 200 Balance 980 -400 -100 Weight 130.6 kg Intake: IV 640 550 100 Sodium Chloride 0.9% 1, 640 550 100 000 ml @ 40 mls/hr IV . Q24H [facility] Rx#:[id number] Oral 550 Blood Product 350 Output: Urine 560 950 200 Other: Voiding Method External Catheter External Catheter External Catheter # Voids 1 - Exam -GENERAL: The patient is alert and oriented x3, not in any acute distress. Well developed, morbidly obese HEENT: Pupils are round and equally reacting to light. EOMI. No scleral icterus. No conjunctival pallor. Normocephalic, atraumatic. No pharyngeal erythema. No thyromegaly. CARDIOVASCULAR: S1 and S2 present. No murmurs, rubs, or gallops. PULMONARY: Chest is clear to auscultation, no wheezing , no crackles. ABDOMEN: Soft, nontender, nondistended, normoactive bowel sounds. No palpable organomegaly. MUSCULOSKELETAL: No joint swelling or deformity. EXTREMITIES: No cyanosis, clubbing, or pedal edema. NEUROLOGICAL: Gross neurological examination did not reveal any focal deficits. SKIN: No rashes. no petechiae. - Labs CBC & Chem 7: 10/05/23 05:55 10/05/23 05:55 Labs: Abnormal Lab Results - Last 24 Hours (Table) 10/04/23 10/04/23 10/04/23 Range/Units 12:18 16:16 20:43 RBC (3.80-5.40) m/uL Hgb (11.4-16.0) gm/dL Hct (34.0-46.0) % ABG pCO2 (35-45) mmHg ABG HCO3 (21-25) mmol/L ABG Total CO2 (19-24) mmol/L Carbon Dioxide (22-30) mmol/L BUN (7-17) mg/dL Glucose (74-99) mg/dL POC Glucose (mg/dL) 216 H 284 H 254 H (70-110) mg/dL 10/05/23 10/05/23 10/05/23 Range/Units 00:12 04:02 05:55 RBC 3.44 L (3.80-5.40) m/uL Hgb 10.1 L (11.4-16.0) gm/dL Hct 32.1 L (34.0-46.0) % ABG pCO2 (35-45) mmHg ABG HCO3 (21-25) mmol/L ABG Total CO2 (19-24) mmol/L Carbon Dioxide (22-30) mmol/L BUN (7-17) mg/dL Glucose (74-99) mg/dL POC Glucose (mg/dL) 198 H 206 H (70-110) mg/dL 10/05/23 10/05/23 10/05/23 Range/Units 05:55 06:45 08:42 RBC (3.80-5.40) m/uL Hgb (11.4-16.0) gm/dL Hct (34.0-46.0) % ABG pCO2 56 H (35-45) mmHg ABG HCO3 35 H (21-25) mmol/L ABG Total CO2 37 H (19-24) mmol/L Carbon Dioxide 31 H (22-30) mmol/L BUN 19 H (7-17) mg/dL Glucose 165 H (74-99) mg/dL POC Glucose (mg/dL) 183 H (70-110) mg/dL 10/05/23 Range/Units 11:37 RBC (3.80-5.40) m/uL Hgb (11.4-16.0) gm/dL Hct (34.0-46.0) % ABG pCO2 (35-45) mmHg ABG HCO3 (21-25) mmol/L ABG Total CO2 (19-24) mmol/L Carbon Dioxide (22-30) mmol/L BUN (7-17) mg/dL Glucose (74-99) mg/dL POC Glucose (mg/dL) 212 H (70-110) mg/dL Microbiology - Last 24 Hours (Table) 10/01/23 13:53 Blood Culture - Preliminary Blood 10/01/23 13:53 Blood Culture - Preliminary Blood Assessment and Plan Assessment: Acute on chronic hypoxic respiratory failure, with acute exacerbation of COPD Covid 19 while pneumonia with severe acute respiratory distress , improving Acute metabolic encephalopathy with hypercapnia, improving Severe sepsis with septic shock, resolved Diabetes mellitus type 2 Hypertension Hyperlipidemia Lymphedema chronic lower extremity Morbid obesity with BMI 42.9 History of schizophrenia Morbid obesity with BMI of 48 Plan: Continue with Zosyn Continue with his aunt BiPAP as needed, currently untreated oxygen Pulmonary team on the case Labs and medication were reviewed.. Continue same treatment. Continue with symptomatic treatment. Resume home medication. Monitor labs and vitals. DVT and GI prophylaxis. Further recommendations as per clinical course of the patient DVT prophylaxis: Subcutaneous Lovenox GI Prophylaxis: Pepcid PT/OT: Pending Prognosis is guarded
--- NOTE | 2023-10-06 07:28 | P.PN ---
Subjective Progress Note Date: 10/03/23 Principal diagnosis: Reason for follow-up is Covid and pneumonia Patient is a 63-year-old female with a past medical history negative for diabetes mellitus hypertension hyperlipidemia COPD resident of [facility] patient was sent to the ER for evaluation of altered mentation and respiratory failure, with recent diagnosis of covid 19, patient did have a CT angiogram of the chest did shows left basilar consultation, patient did have a significant respiratory failure requiring admission to the ICU on BiPAP On today's evaluation that is 10/03/2023 the patient remains to be afebrile, the patient is breathing comfortably however need for BIpap and currently on 40% fio2, the patient is sleepy and lethargic today and did not answer any question no vomiting or diarrhea was reported by the nursing staff Patient did have white count of 6.8, creatinine 0.47 Objective - Vital Signs Vital signs: Vital Signs Temp 97.4 F L 10/03/23 08:00 Pulse 65 10/03/23 11:00 Resp 21 10/03/23 11:00 BP 110/67 10/03/23 11:00 Pulse Ox 94 L 10/03/23 11:00 FiO2 40 10/03/23 09:24 Intake & Output 10/02/23 10/03/23 10/03/23 18:59 06:59 18:59 Intake Total 797.081 740 160 Output Total 545 570 0 Balance 252.081 170 160 Weight 126 kg 128.6 kg Intake: IV 740 160 Piperacillin-Tazobactam 3 300 .375 gm In Sodium Chloride 0.9% 100 ml @ 25 mls/hr IVPB Q8H [facility] Rx#: [id number] Sodium Chloride 0.9% 1, 440 160 000 ml @ 40 mls/hr IV . Q24H [facility] Rx#:[id number] Intake, IV Titration 797.081 Amount Norepinephrine 4 mg In 79.639 Sodium Chloride 0.9% 250 ml @ 0.03 MCG/KG/MIN 12. 961 mls/hr IV .[id number] [facility] Rx#:[id number] Norepinephrine 4 mg In 17.442 Sodium Chloride 0.9% 250 ml @ 0.03 MCG/KG/MIN 14. 402 mls/hr IV .[id number] [facility] Rx#:[id number] Sodium Chloride 0.9% 1, 700 000 ml @ 100 mls/hr IV . Q10H [facility] Rx#:[id number] Output: Urine 545 570 0 Other: Voiding Method Indwelling Catheter Indwelling Catheter Indwelling Catheter - Exam GENERAL DESCRIPTION: An elderly female lying in bed in no distress RESPIRATORY SYSTEM: Unlabored breathing , decreased intensity of breath sounds no wheeze HEART: S1 S2 regular rate and rhythm , ABDOMEN: Soft , no tenderness EXTREMITIES: Right lower extremity wound is currently dressed - Labs CBC & Chem 7: 10/05/23 05:55 10/05/23 05:55 Labs: Abnormal Lab Results - Last 24 Hours (Table) 10/02/23 10/02/23 10/03/23 Range/Units 16:50 20:38 00:03 RBC (3.80-5.40) m/uL Hgb (11.4-16.0) gm/dL Hct (34.0-46.0) % Carbon Dioxide (22-30) mmol/L Creatinine (0.52-1.04) mg/dL Glucose (74-99) mg/dL POC Glucose (mg/dL) 225 H 232 H 219 H (70-110) mg/dL C-Reactive Protein (<1.0) mg/dL Total Protein (6.3-8.2) g/dL Albumin (3.5-5.0) g/dL 10/03/23 10/03/23 10/03/23 Range/Units 05:34 05:34 06:04 RBC 3.26 L (3.80-5.40) m/uL Hgb 9.7 L (11.4-16.0) gm/dL Hct 30.5 L (34.0-46.0) % Carbon Dioxide 35 H (22-30) mmol/L Creatinine 0.47 L (0.52-1.04) mg/dL Glucose 175 H (74-99) mg/dL POC Glucose (mg/dL) 190 H (70-110) mg/dL C-Reactive Protein 14.8 H (<1.0) mg/dL Total Protein 5.3 L (6.3-8.2) g/dL Albumin 3.0 L (3.5-5.0) g/dL 10/03/23 10/03/23 Range/Units 08:36 11:27 RBC (3.80-5.40) m/uL Hgb (11.4-16.0) gm/dL Hct (34.0-46.0) % Carbon Dioxide (22-30) mmol/L Creatinine (0.52-1.04) mg/dL Glucose (74-99) mg/dL POC Glucose (mg/dL) 196 H 260 H (70-110) mg/dL C-Reactive Protein (<1.0) mg/dL Total Protein (6.3-8.2) g/dL Albumin (3.5-5.0) g/dL Microbiology - Last 24 Hours (Table) 10/01/23 13:53 Blood Culture - Preliminary Blood 10/01/23 13:53 Blood Culture - Preliminary Blood Assessment and Plan (1) Pneumonia Current Visit: Yes Status: Acute Code(s): J18.9 - PNEUMONIA, UNSPECIFIED ORGANISM SNOMED Code(s): 552636572 (2) Leg wound, right Current Visit: Yes Status: Acute Code(s): S81.801A - UNSPECIFIED OPEN WOUND, RIGHT LOWER LEG, INITIAL ENCOUNTER SNOMED Code(s): 545365395 (3) COVID-19 Current Visit: Yes Status: Acute Code(s): U07.1 - COVID-19 SNOMED Code(s): 282894618 Plan: 1patient was in the hospital with sepsis in this patient who did have a fever tachycardia source likely acute COVID-19 infection and concern for possible left basilar secondary bacterial pneumonia in this patient who is [facility] resident we will need to cover for the gram-negative's pathogen 2 sputum for Gram stain and culture not collected and blood cultures so far negative 3-local wound care to the right leg wound with Aquacel silver dressing changed every 48 hour 4patient to continue the patient on Zosyn along with the dexamethasone and continue with supportive care Dictation was produced using [employer] dictation software. please excuse any grammatical, word or spelling errors. Time with Patient: Less than 30
--- NOTE | 2023-10-06 07:30 | P.PN ---
Subjective Progress Note Date: 10/04/23 Principal diagnosis: Reason for follow-up is Covid and pneumonia this is a telehealth visit Patient is a 63-year-old female with a past medical history negative for diabetes mellitus hypertension hyperlipidemia COPD resident of [facility] patient was sent to the ER for evaluation of altered mentation and respiratory failure, with recent diagnosis of covid 19, patient did have a CT angiogram of the chest did shows left basilar consultation, patient did have a significant respiratory failure requiring admission to the ICU on BiPAP On today's evaluation that is 10/04/2023 the patient is afebrile, the patient is breathing comfortably however still need for BIpap and Fio2 stable at 40&, the patient denies any chest pain , no worsening cough and no vomiting or diarrhea was reported by the nursing staff Patient did have white count of 6.4, creatinine 0.49 Objective - Vital Signs Vital signs: Vital Signs Temp 97.6 F 10/04/23 20:00 Pulse 52 L 10/04/23 21:00 Resp 23 10/04/23 21:00 BP 141/77 10/04/23 21:00 Pulse Ox 97 10/04/23 21:00 FiO2 40 10/04/23 07:36 Intake & Output 10/04/23 10/04/23 10/05/23 06:59 18:59 06:59 Intake Total 480 1540 100 Output Total 150 560 400 Balance 330 980 -300 Weight 130.4 kg Intake: IV 480 640 100 Sodium Chloride 0.9% 1, 480 640 100 000 ml @ 40 mls/hr IV . Q24H [facility] Rx#:[id number] Oral 550 Blood Product 350 Output: Urine 150 560 400 Other: Voiding Method External Catheter External Catheter External Catheter # Voids 2 1 - Exam GENERAL DESCRIPTION: An elderly female lying in bed in no distress RESPIRATORY SYSTEM: Unlabored breathing , decreased intensity of breath sounds no wheeze HEART: S1 S2 regular rate and rhythm , ABDOMEN: Soft , no tenderness EXTREMITIES: Right lower extremity wound is currently dressed - Labs CBC & Chem 7: 10/05/23 05:55 10/05/23 05:55 Labs: Abnormal Lab Results - Last 24 Hours (Table) 10/04/23 10/04/23 10/04/23 Range/Units 00:26 04:28 05:36 RBC 3.12 L (3.80-5.40) m/uL Hgb 9.3 L (11.4-16.0) gm/dL Hct 29.4 L (34.0-46.0) % Carbon Dioxide (22-30) mmol/L BUN (7-17) mg/dL Creatinine (0.52-1.04) mg/dL Glucose (74-99) mg/dL POC Glucose (mg/dL) 204 H 187 H (70-110) mg/dL Calcium (8.4-10.2) mg/dL C-Reactive Protein (<1.0) mg/dL Total Protein (6.3-8.2) g/dL Albumin (3.5-5.0) g/dL 10/04/23 10/04/23 10/04/23 Range/Units 05:36 06:54 12:18 RBC (3.80-5.40) m/uL Hgb (11.4-16.0) gm/dL Hct (34.0-46.0) % Carbon Dioxide 31 H (22-30) mmol/L BUN 19 H (7-17) mg/dL Creatinine 0.49 L (0.52-1.04) mg/dL Glucose 165 H (74-99) mg/dL POC Glucose (mg/dL) 166 H 216 H (70-110) mg/dL Calcium 8.2 L (8.4-10.2) mg/dL C-Reactive Protein 5.5 H (<1.0) mg/dL Total Protein 5.1 L (6.3-8.2) g/dL Albumin 2.9 L (3.5-5.0) g/dL 10/04/23 10/04/23 Range/Units 16:16 20:43 RBC (3.80-5.40) m/uL Hgb (11.4-16.0) gm/dL Hct (34.0-46.0) % Carbon Dioxide (22-30) mmol/L BUN (7-17) mg/dL Creatinine (0.52-1.04) mg/dL Glucose (74-99) mg/dL POC Glucose (mg/dL) 284 H 254 H (70-110) mg/dL Calcium (8.4-10.2) mg/dL C-Reactive Protein (<1.0) mg/dL Total Protein (6.3-8.2) g/dL Albumin (3.5-5.0) g/dL Microbiology - Last 24 Hours (Table) 10/01/23 13:53 Blood Culture - Preliminary Blood 10/01/23 13:53 Blood Culture - Preliminary Blood Assessment and Plan (1) Pneumonia Current Visit: Yes Status: Acute Code(s): J18.9 - PNEUMONIA, UNSPECIFIED ORGANISM SNOMED Code(s): 426981715 (2) Leg wound, right Current Visit: Yes Status: Acute Code(s): S81.801A - UNSPECIFIED OPEN WOUND, RIGHT LOWER LEG, INITIAL ENCOUNTER SNOMED Code(s): 511014568 (3) COVID-19 Current Visit: Yes Status: Acute Code(s): U07.1 - COVID-19 SNOMED Code(s): 393381530 Plan: 1patient was in the hospital with sepsis in this patient who did have a fever tachycardia source likely acute COVID-19 infection and concern for possible left basilar secondary bacterial pneumonia in this patient who is [facility] we will need to cover for the gram-negative's pathogen 2 sputum for Gram stain and culture not collected and blood cultures so far negative 3-local wound care to the right leg wound with Aquacel silver dressing changed every 48 hour 4patient did have some clinical improvment and will continue the patient on Zosyn along with the dexamethasone and continue with supportive care Dictation was produced using [employer] dictation software. please excuse any grammatical, word or spelling errors.
--- NOTE | 2023-10-06 07:33 | P.PN ---
Subjective Progress Note Date: 10/05/23 Principal diagnosis: Reason for follow-up is Covid and pneumonia this is a telehealth visit Patient is a 63-year-old female with a past medical history negative for diabetes mellitus hypertension hyperlipidemia COPD resident of [facility] patient was sent to the ER for evaluation of altered mentation and respiratory failure, with recent diagnosis of covid 19, patient did have a CT angiogram of the chest did shows left basilar consultation, patient did have a significant respiratory failure requiring admission to the ICU on BiPAP On today's evaluation that is 10/05/2023 the patient remains to be afebrile, the patient is breathing comfortably and denies any chest pain , no worsening cough or sputum production , no vomiting or diarrhea was reported by the nursing staff Patient did have white count of 5.3, creatinine 0.53 Objective - Vital Signs Vital signs: Vital Signs Temp 98.4 F 10/05/23 08:00 Pulse 45 L 10/05/23 08:00 Resp 18 10/05/23 08:00 BP 154/77 10/05/23 08:00 Pulse Ox 98 10/05/23 08:00 FiO2 40 10/05/23 04:00 Intake & Output 10/04/23 10/05/23 10/05/23 18:59 06:59 18:59 Intake Total 1540 550 100 Output Total 560 950 200 Balance 980 -400 -100 Weight 130.6 kg Intake: IV 640 550 100 Sodium Chloride 0.9% 1, 640 550 100 000 ml @ 40 mls/hr IV . Q24H [facility] Rx#:[id number] Oral 550 Blood Product 350 Output: Urine 560 950 200 Other: Voiding Method External Catheter External Catheter # Voids 1 - Exam GENERAL DESCRIPTION: An elderly female lying in bed in no distress RESPIRATORY SYSTEM: Unlabored breathing , decreased intensity of breath sounds no wheeze HEART: S1 S2 regular rate and rhythm , ABDOMEN: Soft , no tenderness EXTREMITIES: Right lower extremity wound is currently dressed - Labs CBC & Chem 7: 10/05/23 05:55 10/05/23 05:55 Labs: Abnormal Lab Results - Last 24 Hours (Table) 10/04/23 10/04/23 10/04/23 Range/Units 12:18 16:16 20:43 RBC (3.80-5.40) m/uL Hgb (11.4-16.0) gm/dL Hct (34.0-46.0) % ABG pCO2 (35-45) mmHg ABG HCO3 (21-25) mmol/L ABG Total CO2 (19-24) mmol/L Carbon Dioxide (22-30) mmol/L BUN (7-17) mg/dL Glucose (74-99) mg/dL POC Glucose (mg/dL) 216 H 284 H 254 H (70-110) mg/dL 10/05/23 10/05/23 10/05/23 Range/Units 00:12 04:02 05:55 RBC 3.44 L (3.80-5.40) m/uL Hgb 10.1 L (11.4-16.0) gm/dL Hct 32.1 L (34.0-46.0) % ABG pCO2 (35-45) mmHg ABG HCO3 (21-25) mmol/L ABG Total CO2 (19-24) mmol/L Carbon Dioxide (22-30) mmol/L BUN (7-17) mg/dL Glucose (74-99) mg/dL POC Glucose (mg/dL) 198 H 206 H (70-110) mg/dL 10/05/23 10/05/23 10/05/23 Range/Units 05:55 06:45 08:42 RBC (3.80-5.40) m/uL Hgb (11.4-16.0) gm/dL Hct (34.0-46.0) % ABG pCO2 56 H (35-45) mmHg ABG HCO3 35 H (21-25) mmol/L ABG Total CO2 37 H (19-24) mmol/L Carbon Dioxide 31 H (22-30) mmol/L BUN 19 H (7-17) mg/dL Glucose 165 H (74-99) mg/dL POC Glucose (mg/dL) 183 H (70-110) mg/dL Microbiology - Last 24 Hours (Table) 10/01/23 13:53 Blood Culture - Preliminary Blood 10/01/23 13:53 Blood Culture - Preliminary Blood Assessment and Plan (1) Pneumonia Current Visit: Yes Status: Acute Code(s): J18.9 - PNEUMONIA, UNSPECIFIED ORGANISM SNOMED Code(s): 445259813 (2) Leg wound, right Current Visit: Yes Status: Acute Code(s): S81.801A - UNSPECIFIED OPEN WOUND, RIGHT LOWER LEG, INITIAL ENCOUNTER SNOMED Code(s): 175987536 (3) COVID-19 Current Visit: Yes Status: Acute Code(s): U07.1 - COVID-19 SNOMED Code(s): 223262968 Plan: 1patient was in the hospital with sepsis in this patient who did have a fever tachycardia source likely acute COVID-19 infection and concern for possible left basilar secondary bacterial pneumonia in this patient who is [facility] resident we will need to cover for the gram-negative's pathogen 2 sputum for Gram stain and culture not collected and blood cultures has been negative 3-local wound care to the right leg wound with Aquacel silver dressing changed every 48 hour 4patient slowly clinically improving ,Pt will continue the patient on Zosyn along with the dexamethasone, zinc, vitamin C and respiratory support Dictation was produced using [employer] dictation software. please excuse any grammatical, word or spelling errors.
[2023-10-06] MEDS: ENOXAPARIN 40 MG/0.4 ML SYRINGE SQ SCH (08:24)
[2023-10-06] MEDS: DEXAMETHASONE SOD PHOSPHATE 10 MG/ML 1 ML VIAL IV SCH (08:25)
[2023-10-06] MEDS: FAMOTIDINE 20 MG/2 ML VIAL IV SCH ×2 (08:25→20:58)
[2023-10-06] MEDS: guaiFENesin 600 MG TABLET.ER PO SCH ×2 (08:25→20:58)
[2023-10-06] MEDS: DIVALPROEX ER 500 MG TAB.ER.24H PO SCH (08:25)
[2023-10-06] MEDS: ASCORBIC ACID 500 MG TAB PO SCH ×2 (08:25→17:04)
[2023-10-06] MEDS: ASPIRIN 81 MG PO SCH (08:25)
--- NOTE | 2023-10-06 08:43 | XR ---
EXAMINATION TYPE: XR chest 1V DATE OF EXAM: 10/06/2023 COMPARISON: 10/05/2023 INDICATION: Covid TECHNIQUE: Single frontal view of the chest is obtained. FINDINGS: The heart size is normal. The pulmonary vasculature is normal. There is elevation of the lateral left diaphragm and blunting of the costophrenic angle correlate for atelectasis or small effusion. Remaining portions of the lungs are clear. IMPRESSION: 1. Atelectasis or pleural effusion left costophrenic angle.
--- NOTE | 2023-10-06 08:53 | P.PN ---
Subjective 63-year-old lady with past medical history significant for COPD, chronic hypoxia, diabetes mellitus, hyperlipidemia, hypertension, morbid obesity, schizophrenia, presents from [facility] with altered mentation. History is limited patient is altered and no family or caregivers at bedside Per chart review patient was sent in for altered mental status and respiratory failure. According to EMS report patient received fromin-home for respiratory distress. Patient had symptom onset 3 days ago. While at the facility patient was noted to be hypoxic and had saturation in 80%. Patient does have history of severe COPD as well as had similar presentation in 2021 when she was admitted with Covid 19 Initiated in ER included CBC which were WBC of 10.3 hemoglobin 11.1 platelet count of 178 with elevated neutrophil count Arterial blood gas obtained showed pH 7.4 pCO2 55 pO2 79 Serum chemistry shows sodium 139 potassium 3.8, and Axert 35 BUNs 12 cre atinine 0.5 glucose 180 Ammonia within normal limits initial troponin 0.012 N-terminal proBNP 399 albumin of 3.3 Urinalysis obtained showed few WBC and urine many bacteria Patient tested negative for influenza and RSV, positive for COVID-19 CT head obtained in ED was negative for acute intracranial process, chest x- ray was obtained which was negative for acute process however chronic changes noted Patient was given 2 L of fluid bolus in ER and started on levo fed for hypotension, intensive care unit team was contacted. Patient was also given 1 dose of Zosyn in ED which will be continued 10/02/2023: Patient seen and evaluated in intensive care unit, patient is on BiPAP, does open eyes to verbal stimulus, following instructions as well however review of system limited secondary to underlying critical illness. Patient followed up by medical ICU team as well. Patient has a sitter at bedside. Patient started back on the antipsychotic medications including clozapine and Depakote, patient receiving levo fed central line in place left IJ 10/03/2023: Patient seen and evaluated bedside, mentation has improved, the patient is following commands patient on 3 L of oxygen. Blood work shows hemoglobin 9.7 WBC within normal limits. Serum chemistry Improved 10/04/2023 patient awake, lethargic Breathing is improving, does not use BiPAP at night Consented 3 L oxygen via nasal cannula Leukocytosis D-dimer negative She remains on Zosyn and dexamethasone 10/05/2023 Patient continued to improve slowly and gradually She is using BiPAP less frequently Continue on related to her oxygen via nasal cannula No other new complaints Hemodynamically stable, the STAPLE Repeat chest x-ray showing better inflation bouts persistent infiltrate in the right mid lung and the left lower zone Continue on Zosyn and dexamethasone 10/06/23 Patient presents on BiPAP overnight, mildly drowsy, breathing improving slowly and gradually She is not particularly this morning but asymptomatic Postoperative Vitas looks stable Repeat labs are pending Repeat chest x-ray showing improvement and infiltrate in the right lower and left lower extremity. Patient still on dexamethasone 4 mg , & Zosyn Objective - Vital Signs Vital signs: Vital Signs Temp 98.0 F 10/06/23 00:00 Pulse 49 L 10/06/23 08:00 Resp 17 10/06/23 08:00 BP 135/76 10/06/23 08:00 Pulse Ox 98 10/06/23 08:00 FiO2 40 10/06/23 05:15 Intake & Output 10/05/23 10/06/23 10/06/23 18:59 06:59 18:59 Intake Total 1480 580 40 Output Total 1999 2149 Balance -520 -1570 40 Weight 127.4 kg Intake: IV 680 480 40 Piperacillin-Tazobactam 3 100 .375 gm In Sodium Chloride 0.9% 100 ml @ 25 mls/hr IVPB Q8H [facility] Rx#: [id number] Sodium Chloride 0.9% 1, 580 480 40 000 ml @ 40 mls/hr IV . Q24H [facility] Rx#:[id number] Oral 800 100 Output: Urine 19990 Other: Voiding Method External Catheter External Catheter # Voids 1 # Bowel Movements 1 - Exam -GENERAL: The patient is alert and oriented x3, not in any acute distress. Well developed, morbidly obese HEENT: Pupils are round and equally reacting to light. EOMI. No scleral icterus. No conjunctival pallor. Normocephalic, atraumatic. No pharyngeal erythema. No thyromegaly. CARDIOVASCULAR: S1 and S2 present. No murmurs, rubs, or gallops. PULMONARY: Chest is clear to auscultation, no wheezing , no crackles. ABDOMEN: Soft, nontender, nondistended, normoactive bowel sounds. No palpable organomegaly. MUSCULOSKELETAL: No joint swelling or deformity. EXTREMITIES: No cyanosis, clubbing, or pedal edema. NEUROLOGICAL: Gross neurological examination did not reveal any focal deficits. SKIN: No rashes. no petechiae. - Labs CBC & Chem 7: 10/05/23 05:55 10/05/23 05:55 Labs: Abnormal Lab Results - Last 24 Hours (Table) 10/05/23 10/05/23 10/05/23 Range/Units 11:37 16:39 20:41 POC Glucose (mg/dL) 212 H 274 H 250 H (70-110) mg/dL 10/06/23 10/06/23 10/06/23 Range/Units 00:05 05:09 06:33 POC Glucose (mg/dL) 271 H 195 H 186 H (70-110) mg/dL Assessment and Plan Assessment: Acute on chronic hypoxic respiratory failure, with acute exacerbation of COPD Covid 19 while pneumonia with severe acute respiratory distress , improving Acute metabolic encephalopathy with hypercapnia, improving Severe sepsis with septic shock, resolved Diabetes mellitus type 2 Hypertension Hyperlipidemia Lymphedema chronic lower extremity Morbid obesity with BMI 42.9 History of schizophrenia Morbid obesity with BMI of 48 Plan: Continue with Zosyn Continue with his aunt BiPAP as needed, currently untreated oxygen Pulmonary team on the case Labs and medication were reviewed.. Continue same treatment. Continue with symptomatic treatment. Resume home medication. Monitor labs and vitals. DVT and GI prophylaxis. Further recommendations as per clinical course of the patient DVT prophylaxis: Subcutaneous Lovenox GI Prophylaxis: Pepcid PT/OT: Pending Prognosis is guarded
[2023-10-06 11:29] VITALS: BMI 48.2
[2023-10-06 12:22] LABS: Glucose,Whole Blood 246 mg/dL (70-110)
--- NOTE | 2023-10-06 12:35 | P.PN ---
Subjective Progress Note Date: 10/06/23 Principal diagnosis: Acute on chronic hypoxic and hypercapnic respiratory failure, multifactorial 63-year-old female patient, senior care resident, known history of COPD with ch ronic hypoxic respiratory failure maintained on oxygen at 3 L per minute nasal cannula, morbidly obese with a body mass index of 42.9 in addition to chronic hypercapnic respiratory failure, presented to the MRSA protocol because of altered mental status and diminished level of consciousness. The patient is typically alert and oriented 2. There was no diminishment in her level of consciousness and is same time the patient was having respiratory distress. In the emergency, the patient was found to be hypoxic. The patient was placed on 100% nonrebreather facemask. Following that, the patient was placed on a BiPAP at a pressure of 12/6 with an FiO2 of 50%. Blood gas showed a pH of 7.4 with episodes of 55 and pO2 of 79. Chest x-ray was limited and there was some left basilar infiltration. Subsequently, the patient was given a CT angiogram that showed no evidence of any pulmonary embolism. There was tiny left-sided pleural effusion and left basilar consolidation with atelectasis. There is also background emphysema. The patient was given a total of 2 L of IV fluid bolus. Currently she is on norepinephrine at a low dose of 0.05 mcg/kg/m. The patient also received a dose of Zosyn in emergency department. CAT scan of the brain showed no acute process. It showed chronic atrophy. The viral screen was positive for Covid 19. This is her second infection. The patient was ho spitalized back in 2021 for the same. Back then, she was Covid 19 positive. The patient had a white cell count of 10.3, hemoglobin of 11, normal coagulation profile, BUN of 12 with a creatinine of 0.5 and a sodium of 139. Troponins are negative. ProBNP is 399. UA was abnormal with 27 WBCs. Many bacteria. On 10/05/2023, the patient is still sleepy and she slept all day yesterday while being on a BiPAP. This morning, she is on 3 L of oxygen by nasal cannula. The chest x-ray shows some fullness in the right infrahilar area and probably some right infrahilar atelectasis/consolidation. There is some atelectatic changes also in the left lung base. The white suppositive 5.3 with a hemoglobin of 10.1. Electrolytes are all within normal limits. Sodium level is at 141, bicarb is at 31, BUN is at 19 with a creatinine of 0.5. No apparent respiratory distress at rest. Occasional cough. No significant sputum production. Remains on Decadron 6 mg IV every 24 hours. Remains on IV Zosyn. Remains on IV fluids at 40 mL an hour. Remains on Depakote and clozapine and was also added at her usual dose of 200 mg at bedtime. She remains on Lovenox for DVT prophylaxis. No other significant events. She has a left IJ triple-lumen catheter Reevaluated today on 10/06/2023, patient is sitting in bed, on 3 L nasal cannula, she has a BiPAP at bedside 10/01/40% to be used as needed, remains on Decadron 6 mg IV push daily, she is also on Zosyn, remains on Lovenox for DVT prophylaxis, WBC count today is 5.3 hemoglobin is 10.1. ABG from yesterday showed a pO2 of 85 pCO2 56 and pH of 7.41, patient seems to be compensating well for her chronic hypercapnia bicarb is 35. Basic metabolic profile is normal renal profile is normal, d-dimer on admission was 0.5/normal chest x-ray this morning showed mostly atelectasis at the bases, and possibly a small tiny left pleural effusion. Patient is mostly on the COVID-19 cocktail, she is also on bronchodilators, GI and DVT prophylaxis, and Zosyn empirically. Objective - Vital Signs Vital signs: Vital Signs Temp 98.0 F 10/06/23 00:00 Pulse 46 L 10/06/23 11:00 Resp 18 10/06/23 11:00 BP 142/70 10/06/23 11:00 Pulse Ox 95 10/06/23 11:00 FiO2 40 10/06/23 05:15 Intake & Output 10/05/23 10/06/23 10/06/23 18:59 06:59 18:59 Intake Total 1480 580 300 Output Total 19990 300 Balance -520 -1570 0 Weight 127.4 kg 127.4 kg Intake: IV 680 480 300 Piperacillin-Tazobactam 3 100 100 .375 gm In Sodium Chloride 0.9% 100 ml @ 25 mls/hr IVPB Q8H [facility] Rx#: [id number] Sodium Chloride 0.9% 1, 580 480 200 000 ml @ 40 mls/hr IV . Q24H [facility] Rx#:[id number] Oral 800 100 Output: Urine 1999 2150 300 Other: Voiding Method External Catheter External Catheter External Catheter # Voids 1 # Bowel Movements 1 - Exam Physical Exam: Revealed a 63-year-old female in no distress seems to be intermittently confused. On 3 L nasal cannula. Head: Atraumatic, normocephalic. HEENT:[Neck is supple.] [No neck masses.] [No thyromegaly.] [No JVD.] Chest: Diminished breath sound bilaterally no crackles or rhonchi or wheezes Cardiac Exam: [Normal S1 and S2, no S3 gallop, no murmur.] Abdomen: [Soft, nontender, no megaly, no rebound, no guarding, normal bowel sounds.] Extremities: [No clubbing, no edema, no cyanosis.] Neurological Exam: Patient is arousable, follows simple instructions, seems to be intermittently confused and encephalopathic. Apparently patient has baseline confusion and dementia Psychiatric: Confused, flat affect, poor mental status. - Labs CBC & Chem 7: 10/05/23 05:55 10/05/23 05:55 Labs: Abnormal Lab Results - Last 24 Hours (Table) 10/05/23 10/05/23 10/06/23 Range/Units 16:39 20:41 00:05 POC Glucose (mg/dL) 274 H 250 H 271 H (70-110) mg/dL 10/06/23 10/06/23 10/06/23 Range/Units 05:09 06:33 12:20 POC Glucose (mg/dL) 195 H 186 H 246 H (70-110) mg/dL Assessment and Plan Assessment: Impression: Acute on chronic hypoxic and hypercapnic respiratory failure, multifactorial Acute COVID-19 infection Possible underlying bacterial pneumonia, healthcare acquired, patient lives at a senior care, aspiration pneumonia is also a possibility, patient is empirically on Zosyn. History of chronic hypoxic and hypercapnic respiratory failure History of chronic cognitive impairment and schizophrenia. Morbid obesity with BMI of 42.9 Chronic bipedal edema secondary to venous insufficiency Type 2 diabetes without complications Benign essential hypertension Dyslipidemia Recommendation: Continue present supportive care measures Continue COVID-19 cocktail including Decadron and multivitamins Continue Zosyn empirically Discontinue triple-lumen catheter use BiPAP as needed especially at night Advanced diet as tolerated Continue GI and DVT prophylaxis consider transferring the patient out of the ICU to a regular medical floor We will continue to follow Time with Patient: Less than 30
[2023-10-06 16:59] LABS: Glucose,Whole Blood 327 mg/dL (70-110)
[2023-10-06] MEDS: ZINC SULFATE 220 MG CAP PO SCH (17:04)
[2023-10-06 20:21] LABS: Glucose,Whole Blood 305 mg/dL (70-110)
[2023-10-06 20:23] LABS: Glucose,Whole Blood 275 mg/dL (70-110)
[2023-10-06] MEDS: ATORVASTATIN 20 MG TAB PO SCH (20:58)
[2023-10-06] MEDS: cloZAPine 100 MG TAB PO SCH (20:58)
[2023-10-07 05:38] VITALS: RESP 18
[2023-10-07] MEDS: PIPERACILLIN-TAZOBACTAM 3.375 GM in SODIUM CHLORIDE 0.9% 100 ML IVPB SCH (06:35)
[2023-10-07 06:38] LABS: Glucose,Whole Blood 180 mg/dL (70-110)
[2023-10-07] MEDS: INSULIN ASPART (NovoLOG) 100 UNIT/ML VIAL SQ SCH ×2 (06:47→11:52)
[2023-10-07] MEDS: INSULIN DETEMIR (LEVEMIR) 100 UNIT/ML SYR SQ SCH (06:47)
[2023-10-07] MEDS: LACTULOSE 20 GM/30 ML CUP PO PRN (08:13)
[2023-10-07] MEDS: ASCORBIC ACID 500 MG TAB PO SCH (08:13)
[2023-10-07] MEDS: FAMOTIDINE 20 MG/2 ML VIAL IV SCH (08:13)
[2023-10-07] MEDS: ASPIRIN 81 MG PO SCH (08:13)
[2023-10-07] MEDS: DEXAMETHASONE SOD PHOSPHATE 10 MG/ML 1 ML VIAL IV SCH (08:13)
[2023-10-07] MEDS: guaiFENesin 600 MG TABLET.ER PO SCH (08:14)
[2023-10-07] MEDS: ENOXAPARIN 40 MG/0.4 ML SYRINGE SQ SCH (08:14)
[2023-10-07] MEDS ORDERED: DIVALPROEX 500 MG TABLET.DR PO SCH ×2 (09:00→21:00)
--- NOTE | 2023-10-07 09:37 | P.DS ---
Providers Date of admission: 10/01/23 14:24 Attending physician: Elio Day Consults: 10/01/23 14:07 Consult Physician Routine Consulting Provider: Valerio Glass Consult Reason/Comments: Sepsis, Covid Do you want consulting provider notified?: Yes Consult Physician Urgent Consulting Provider: Amilcar Burrell Consult Reason/Comments: Septic shock, Covid, Resp failure Do you want consulting provider notified?: Yes Primary care physician: Bello Lewis Hospital Course: Diagnoses: Acute on chronic hypoxic respiratory failure, with acute exacerbation of COPD Covid 19 while pneumonia with severe acute respiratory distress , improving Acute metabolic encephalopathy with hypercapnia, improving Severe sepsis with septic shock, resolved Diabetes mellitus type 2 Hypertension Hyperlipidemia Lymphedema chronic lower extremity Morbid obesity with BMI 42.9 History of schizophrenia Morbid obesity with BMI of 48 Hospital course: 63-year-old lady with past medical history significant for COPD, chronic hypoxia, diabetes mellitus, hyperlipidemia, hypertension, morbid obesity, schizophrenia, presents from [facility] with altered mentation. pt is coming from [facility]. She presents because of respiratory distress secondary to Covid infection and pneumonia with superimposed bacterial infection is suspected complicated by acute COPD exacerbation. Patient has been evaluated by pulmonary and infectious disease services. She was treated with IV Zosyn, dexamethasone, bronchodilators as well as multiple vitamins, CT vitamin D and zinc. Also patient had use a BiPAP especially during the night over several days. She does not need it last night. Today she is awake alert. Eating her breakfast with good appetite. She still has mild wheezing and she is still little short of breath especially when talking past. At baseline she works using her walker but only have through the hallway. Today she denies any other symptoms no chest pain, no change in urine or bowel habits. No fever. No chills. Patient was cleared for discharge by infectious disease and pulmonary services. Problems and management plan were discussed with the patient and he verbalized understanding and acceptance Patient was found stable and can be discharged home in guarded prognosis however he needs follow-up as an outpatient. Patient was instructed to follow up with PCP dr. lewis within one week and patient agrees Patient was instructed to follow up with staff weapons officer Dr. Burrell in 2-3 weeks and she agrees Physical exam -Gen: patient is a AAOx3, no distress. Morbidly obese CVS: S1-S2, RRR, no murmur -Lungs: B/L CTA, mild expiratory wheezing Abdomen: soft, no distention, no tenderness, positive bowel sounds Extremity: no leg edema or induration Time spent more than 35 minutes Patient Condition at Discharge: Critical Plan - Discharge Summary New Discharge Prescriptions: New Divalproex [Depakote] 500 mg PO DAILY #15 tab Insulin Detemir (Levemir) [Levemir] 10 unit SQ DAILY@0700 each Divalproex [Depakote] 750 mg PO HS #15 tab Continue Ergocalciferol [Vitamin D2 (DRISDOL)] 50,000 unit PO SA@1700 Linagliptin [Tradjenta] 5 mg PO DAILY@0800 Ipratropium-Albuterol Nebulize [Duoneb 0.5 mg-3 mg/3 ml Soln] 3 ml INHALATION RT-QID@08,,17,21 Albuterol Sulfate [Proair Hfa] 2 puff INHALATION RT-Q6H PRN PRN Reason: Shortness Of Breath Budesonide-Formot 160-4.5 Mcg [Symbicort 160-4.5 Mcg Inhaler] 2 puff INHALATION RT-BID@,17 Acetaminophen [Tylenol] 500 mg PO Q6H PRN #0 PRN Reason: Pain Aspirin 81 mg PO DAILY@0800 Famotidine [Pepcid] 20 mg PO BID@0800,1700 Lactulose [Cephulac] 20 gm PO DAILY PRN ml PRN Reason: Constipation INSULIN ASPART (NovoLOG) [NovoLOG (formulary)] 7 unit SQ BID@0700,1630 predniSONE 10 mg PO DAILY@0800 dexAMETHasone [Decadron] 4 mg PO DAILY@0800 cloZAPine [Clozaril] 200 mg PO HS@2100 Divalproex ER [Depakote ER] 1,500 mg PO HS@2100 metFORMIN HCL [Glucophage] 1,000 mg PO BID@0800,1700 Atorvastatin Calcium [Lipitor] 20 mg PO HS Ascorbic Acid [Vitamin C] 500 mg PO BID@0800,1700 Rivaroxaban [Xarelto] 10 mg PO DAILY@0800 Zinc Sulfate [Orazinc] 220 mg PO DAILY@1700 Magnesium Hydroxide [Milk of Magnesia Concentrate] 7,200 mg PO Q48H PRN PRN Reason: Constipation bisacodyL [Dulcolax] 10 mg RECTAL DAILY PRN PRN Reason: Constipation Na Phos,M-B/Na Phos,Di-Ba [Fleet Adult] 133 ml RECTAL DAILY PRN PRN Reason: Constipation INSULIN ASPART (NovoLOG) [NovoLOG (formulary)] See Protocol SQ AC-TID guaiFENesin [guaiFENesin ER] 600 mg PO BID@0800,2100 INSULIN ASPART (NovoLOG) [NovoLOG (formulary)] 10 unit SQ DAILY@1100 Furosemide [Lasix] 20 mg PO DAILY@0800 Discharge Medication List Ergocalciferol [Vitamin D2 (DRISDOL)] 50,000 unit PO SA@1700 09/02/19 [History] Linagliptin [Tradjenta] 5 mg PO DAILY@0800 04/20/20 [History] Divalproex ER [Depakote ER] 1,500 mg PO HS@209904/12/21 [History] Ipratropium-Albuterol Nebulize [Duoneb 0.5 mg-3 mg/3 ml Soln] 3 ml INHALATION RT-QID@,,,04/12/21 [History] Albuterol Sulfate [Proair Hfa] 2 puff INHALATION RT-Q6H PRN 11/05/21 [History] Atorvastatin Calcium [Lipitor] 20 mg PO HS 11/05/21 [History] Budesonide-Formot 160-4.5 Mcg [Symbicort 160-4.5 Mcg Inhaler] 2 puff INHALATION RT-BID@,17 11/05/21 [History] metFORMIN HCL [Glucophage] 1,000 mg PO BID@0800,169911/05/21 [History] Acetaminophen [Tylenol] 500 mg PO Q6H PRN #0 11/16/21 [Rx] Ascorbic Acid [Vitamin C] 500 mg PO BID@0800,1700 12/07/21 [History] Aspirin 81 mg PO DAILY@0800 12/07/21 [History] Famotidine [Pepcid] 20 mg PO BID@0800,1700 12/07/21 [History] Rivaroxaban [Xarelto] 10 mg PO DAILY@0800 12/07/21 [History] Zinc Sulfate [Orazinc] 220 mg PO DAILY@169912/07/21 [History] Lactulose [Cephulac] 20 gm PO DAILY PRN ml 12/11/21 [Rx] Furosemide [Lasix] 20 mg PO DAILY@0800 10/01/23 [History] INSULIN ASPART (NovoLOG) [NovoLOG (formulary)] 7 unit SQ BID@0700,1630 10/01/23 [History] INSULIN ASPART (NovoLOG) [NovoLOG (formulary)] 10 unit SQ DAILY@1100 10/01/23 [History] INSULIN ASPART (NovoLOG) [NovoLOG (formulary)] See Protocol SQ AC-TID 10/01/23 [History] Magnesium Hydroxide [Milk of Magnesia Concentrate] 7,200 mg PO Q48H PRN 10/01/23 [History] Na Phos,M-B/Na Phos,Di-Ba [Fleet Adult] 133 ml RECTAL DAILY PRN 10/01/23 [Hist ory] bisacodyL [Dulcolax] 10 mg RECTAL DAILY PRN 10/01/23 [History] cloZAPine [Clozaril] 200 mg PO HS@2100 10/01/23 [History] dexAMETHasone [Decadron] 4 mg PO DAILY@0800 10/01/23 [History] guaiFENesin [guaiFENesin ER] 600 mg PO BID@0800,209910/01/23 [History] predniSONE 10 mg PO DAILY@0800 10/01/23 [History] Divalproex [Depakote] 500 mg PO DAILY #15 tab 10/07/23 [Rx] Divalproex [Depakote] 750 mg PO HS #15 tab 10/07/23 [Rx] Insulin Detemir (Levemir) [Levemir] 10 unit SQ DAILY@0700 each 10/07/23 [Rx] Follow up Appointment(s)/Referral(s): Bello Lewis MD [Primary Care Provider] - 1-2 days
[2023-10-07] MEDS: SODIUM CHLORIDE 0.9% 1,000 ML IV SCH (11:32)
[2023-10-07 11:41] LABS: Glucose,Whole Blood 291 mg/dL (70-110)
--- NOTE | 2023-10-07 13:27 | P.PN ---
Subjective Progress Note Date: 10/07/23 Principal diagnosis: Acute on chronic hypoxic and hypercapnic respiratory failure, multifactorial 63-year-old female patient, [facility] resident, known history of COPD with ch ronic hypoxic respiratory failure maintained on oxygen at 3 L per minute nasal cannula, morbidly obese with a body mass index of 42.9 in addition to chronic hypercapnic respiratory failure, presented to the MRSA protocol because of altered mental status and diminished level of consciousness. The patient is typically alert and oriented 2. There was no diminishment in her level of consciousness and is same time the patient was having respiratory distress. In the emergency, the patient was found to be hypoxic. The patient was placed on 100% nonrebreather facemask. Following that, the patient was placed on a BiPAP at a pressure of 12/6 with an FiO2 of 50%. Blood gas showed a pH of 7.4 with episodes of 55 and pO2 of 79. Chest x-ray was limited and there was some left basilar infiltration. Subsequently, the patient was given a CT angiogram that showed no evidence of any pulmonary embolism. There was tiny left-sided pleural effusion and left basilar consolidation with atelectasis. There is also background emphysema. The patient was given a total of 2 L of IV fluid bolus. Currently she is on norepinephrine at a low dose of 0.05 mcg/kg/m. The patient also received a dose of Zosyn in emergency department. CAT scan of the brain showed no acute process. It showed chronic atrophy. The viral screen was positive for Covid 19. This is her second infection. The patient was ho spitalized back in 2021 for the same. Back then, she was Covid 19 positive. The patient had a white cell count of 10.3, hemoglobin of 11, normal coagulation profile, BUN of 12 with a creatinine of 0.5 and a sodium of 139. Troponins are negative. ProBNP is 399. UA was abnormal with 27 WBCs. Many bacteria. On 10/05/2023, the patient is still sleepy and she slept all day yesterday while being on a BiPAP. This morning, she is on 3 L of oxygen by nasal cannula. The chest x-ray shows some fullness in the right infrahilar area and probably some right infrahilar atelectasis/consolidation. There is some atelectatic changes also in the left lung base. The white suppositive 5.3 with a hemoglobin of 10.1. Electrolytes are all within normal limits. Sodium level is at 141, bicarb is at 31, BUN is at 19 with a creatinine of 0.5. No apparent respiratory distress at rest. Occasional cough. No significant sputum production. Remains on Decadron 6 mg IV every 24 hours. Remains on IV Zosyn. Remains on IV fluids at 40 mL an hour. Remains on Depakote and clozapine and was also added at her usual dose of 200 mg at bedtime. She remains on Lovenox for DVT prophylaxis. No other significant events. She has a left IJ triple-lumen catheter Reevaluated today on 10/06/2023, patient is sitting in bed, on 3 L nasal cannula, she has a BiPAP at bedside 10/01/40% to be used as needed, remains on Decadron 6 mg IV push daily, she is also on Zosyn, remains on Lovenox for DVT prophylaxis, WBC count today is 5.3 hemoglobin is 10.1. ABG from yesterday showed a pO2 of 85 pCO2 56 and pH of 7.41, patient seems to be compensating well for her chronic hypercapnia bicarb is 35. Basic metabolic profile is normal renal profile is normal, d-dimer on admission was 0.5/normal chest x-ray this morning showed mostly atelectasis at the bases, and possibly a small tiny left pleural effusion. Patient is mostly on the COVID-19 cocktail, she is also on bronchodilators, GI and DVT prophylaxis, and Zosyn empirically. Patient was reevaluated today on 10/07/2023, remains in the ICU as an overflow, she is on 3 L nasal cannula with O2 sats of 96%. Patient is not using her BiPAP, she seems to be quite comfortable. Not in any distress, I have discontinued her Zosyn, and I have recommended possibly discharge planning to [facility] today. Patient already has home O2 at home. Objective - Vital Signs Vital signs: Vital Signs Temp 97.7 F 10/07/23 08:00 Pulse 61 10/07/23 08:00 Resp 18 10/07/23 08:00 BP 133/70 10/07/23 08:00 Pulse Ox 96 10/07/23 08:10 FiO2 40 10/06/23 05:15 Intake & Output 10/06/23 10/07/23 10/07/23 18:59 06:59 18:59 Intake Total 1390 100 480 Output Total 2600 1499 500 Balance -1210 -1399 -20 Weight 127.4 kg 125.3 kg Intake: IV 540 100 480 Piperacillin-Tazobactam 3 100 100 .375 gm In Sodium Chloride 0.9% 100 ml @ 25 mls/hr IVPB Q8H [facility] Rx#: [id number] Sodium Chloride 0.9% 1, 440 480 000 ml @ 40 mls/hr IV . Q24H TRISH Rx#:[id number] Oral 600 Blood Product 250 Output: Urine 2600 1499 500 Other: Voiding Method External Catheter External Catheter # Voids 1 # Bowel Movements 1 - Exam Physical Exam: Revealed a 63-year-old female in no distress seems to be intermittently confused. On 3 L nasal cannula. Head: Atraumatic, normocephalic. HEENT:[Neck is supple.] [No neck masses.] [No thyromegaly.] [No JVD.] Chest: Diminished breath sound bilaterally no crackles or rhonchi or wheezes Cardiac Exam: [Normal S1 and S2, no S3 gallop, no murmur.] Abdomen: [Soft, nontender, no megaly, no rebound, no guarding, normal bowel sounds.] Extremities: [No clubbing, no edema, no cyanosis.] Neurological Exam: Alert and oriented to place and person, not to time. Psychiatric: Normal mood flat affect, could not fully assess mental status, she is intermittently confused - Labs CBC & Chem 7: 10/05/23 05:55 10/05/23 05:55 Labs: Abnormal Lab Results - Last 24 Hours (Table) 10/06/23 10/06/23 10/06/23 Range/Units 16:57 20:19 20:20 POC Glucose (mg/dL) 327 H 305 H 275 H (70-110) mg/dL 10/07/23 10/07/23 Range/Units 06:37 11:40 POC Glucose (mg/dL) 180 H 291 H (70-110) mg/dL Microbiology - Last 24 Hours (Table) 10/01/23 13:53 Blood Culture - Final Blood 10/01/23 13:53 Blood Culture - Final Blood Assessment and Plan Assessment: Impression: Acute on chronic hypoxic and hypercapnic respiratory failure, multifactorial Acute COVID-19 infection Possible underlying bacterial pneumonia, healthcare acquired, [facility] a jail, aspiration pneumonia , patient was treated empirically with Zosyn, and this was discontinued today History of chronic hypoxic and hypercapnic respiratory failure History of chronic cognitive impairment and schizophrenia. Morbid obesity with BMI of 42.9 Chronic bipedal edema secondary to venous insufficiency Type 2 diabetes without complications Benign essential hypertension Dyslipidemia Recommendation: Continue COVID-19, Resume home meds Discussed with the admitting physician that the patient could be transferred to jail Time with Patient: Less than 30
[2023-10-07 14:01] VITALS: BP 128/108; PULSE 63; TEMP 97.8
--- NOTE | 2023-10-07 14:35 | P.PN ---
Subjective Progress Note Date: 10/06/23 Principal diagnosis: Reason for follow-up is Covid and pneumonia Patient is a 63-year-old female with a past medical history negative for diabetes mellitus hypertension hyperlipidemia COPD resident of [facility] patient was sent to the ER for evaluation of altered mentation and respiratory failure, with recent diagnosis of covid 19, patient did have a CT angiogram of the chest did shows left basilar consultation, patient did have a significant respiratory failure requiring admission to the ICU on BiPAP On today's evaluation that is 10/06/2023 the patient denies any fever or any chills, the patient is breathing comfortably on 3 L nasal cannula oxygen, the patient denies nausea vomiting or any diarrhea, and no abdominal pain, the patient denies having any chest pain cough has decreased in intensity not bringing up any sputum Patient did have white count of 5.3, creatinine 0.53 as of 10/05/2023 no lab draw today Objective - Vital Signs Vital signs: Vital Signs Temp 98.0 F 10/06/23 00:00 Pulse 57 L 10/06/23 12:00 Resp 23 10/06/23 12:00 BP 142/70 10/06/23 12:00 Pulse Ox 96 10/06/23 12:00 FiO2 40 10/06/23 05:15 Intake & Output 10/05/23 10/06/23 10/06/23 18:59 06:59 18:59 Intake Total 1480 580 300 Output Total 1999 2150 300 Balance -520 -1570 0 Weight 127.4 kg 127.4 kg Intake: IV 680 480 300 Piperacillin-Tazobactam 3 100 100 .375 gm In Sodium Chloride 0.9% 100 ml @ 25 mls/hr IVPB Q8H TRISH Rx#: [id number] Sodium Chloride 0.9% 1, 580 480 200 000 ml @ 40 mls/hr IV . Q24H TRISH Rx#:[id number] Oral 800 100 Output: Urine 1999 2150 300 Other: Voiding Method External Catheter External Catheter External Catheter # Voids 1 # Bowel Movements 1 - Exam GENERAL DESCRIPTION: An elderly female lying in bed in no distress RESPIRATORY SYSTEM: Unlabored breathing , decreased intensity of breath sounds no wheeze HEART: S1 S2 regular rate and rhythm , ABDOMEN: Soft , no tenderness EXTREMITIES: Right lower extremity wound is currently dressed - Labs CBC & Chem 7: 10/05/23 05:55 10/05/23 05:55 Labs: Abnormal Lab Results - Last 24 Hours (Table) 10/05/23 10/05/23 10/06/23 Range/Units 16:39 20:41 00:05 POC Glucose (mg/dL) 274 H 250 H 271 H (70-110) mg/dL 10/06/23 10/06/23 10/06/23 Range/Units 05:09 06:33 12:20 POC Glucose (mg/dL) 195 H 186 H 246 H (70-110) mg/dL Assessment and Plan (1) Pneumonia Current Visit: Yes Status: Acute Code(s): J18.9 - PNEUMONIA, UNSPECIFIED ORGANISM SNOMED Code(s): 004993813 (2) Leg wound, right Current Visit: Yes Status: Acute Code(s): S81.801A - UNSPECIFIED OPEN WOUND, RIGHT LOWER LEG, INITIAL ENCOUNTER SNOMED Code(s): 245673285 (3) COVID-19 Current Visit: Yes Status: Acute Code(s): U07.1 - COVID-19 SNOMED Code(s): 680314847 Plan: 1patient was in the hospital with sepsis in this patient who did have a fever tachycardia source likely acute COVID-19 infection and concern for possible left basilar secondary bacterial pneumonia in this patient who is [facility] resident we will need to cover for the gram-negative's pathogen 2 sputum for Gram stain and culture not collected and blood cultures has been negative 3-local wound care to the right leg wound with Aquacel silver dressing changed every 48 hour 4patient did have some clinical improvement, the patient continue the patient on Zosyn along with the dexamethasone, zinc, vitamin C and monitor clinical course closely Dictation was produced using [employer] dictation software. please excuse any grammatical, word or spelling errors. Time with Patient: Less than 30
--- NOTE | 2023-10-07 14:36 | P.PN ---
Subjective Progress Note Date: 10/07/23 Principal diagnosis: Reason for follow-up is Covid and pneumonia Patient is a 63-year-old female with a past medical history negative for diabetes mellitus hypertension hyperlipidemia COPD resident of [facility] patient was sent to the ER for evaluation of altered mentation and respiratory failure, with recent diagnosis of covid 19, patient did have a CT angiogram of the chest did shows left basilar consultation, patient did have a significant respiratory failure requiring admission to the ICU on BiPAP On today's evaluation that is 10/07/2023 the patient remains to be afebrile, the patient is breathing comfortably on 2L nasal cannula oxygen, the patient denies any chest pain denies any worsening cough or sputum production, the patient denies nausea vomiting or any diarrhea, and no abdominal pain, Patient did have white count of 5.3, creatinine 0.53 as of 10/05/2023 no lab draw today Objective - Vital Signs Vital signs: Vital Signs Temp 97.7 F 10/07/23 08:00 Pulse 61 10/07/23 08:00 Resp 18 10/07/23 08:00 BP 133/70 10/07/23 08:00 Pulse Ox 96 10/07/23 08:10 FiO2 40 10/06/23 05:15 Intake & Output 10/06/23 10/07/23 10/07/23 18:59 06:59 18:59 Intake Total 1390 100 480 Output Total 2600 1499 500 Balance -1210 -1399 -20 Weight 127.4 kg 125.3 kg Intake: IV 540 100 480 Piperacillin-Tazobactam 3 100 100 .375 gm In Sodium Chloride 0.9% 100 ml @ 25 mls/hr IVPB Q8H TRISH Rx#: [id number] Sodium Chloride 0.9% 1, 440 480 000 ml @ 40 mls/hr IV . Q24H TRISH Rx#:[id number] Oral 600 Blood Product 250 Output: Urine 2600 1499 500 Other: Voiding Method External Catheter External Catheter # Voids 1 # Bowel Movements 1 - Exam GENERAL DESCRIPTION: An elderly female lying in bed in no distress RESPIRATORY SYSTEM: Unlabored breathing , decreased intensity of breath sounds no wheeze HEART: S1 S2 regular rate and rhythm , ABDOMEN: Soft , no tenderness EXTREMITIES: Right lower extremity wound is currently dressed - Labs CBC & Chem 7: 10/05/23 05:55 12/10/23 05:55 Labs: Abnormal Lab Results - Last 24 Hours (Table) 10/06/23 10/06/23 10/06/23 Range/Units 16:57 20:19 20:20 POC Glucose (mg/dL) 327 H 305 H 275 H (70-110) mg/dL 10/07/23 10/07/23 Range/Units 06:37 11:40 POC Glucose (mg/dL) 180 H 291 H (70-110) mg/dL Microbiology - Last 24 Hours (Table) 10/01/23 13:53 Blood Culture - Final Blood 10/01/23 13:53 Blood Culture - Final Blood Assessment and Plan (1) Pneumonia Current Visit: Yes Status: Acute Code(s): J18.9 - PNEUMONIA, UNSPECIFIED ORGANISM SNOMED Code(s): 751734256 (2) Leg wound, right Current Visit: Yes Status: Acute Code(s): S81.801A - UNSPECIFIED OPEN WOUND, RIGHT LOWER LEG, INITIAL ENCOUNTER SNOMED Code(s): 069667389 (3) COVID-19 Current Visit: Yes Status: Acute Code(s): U07.1 - COVID-19 SNOMED Code(s): 346943086 Plan: 1patient was in the hospital with sepsis in this patient who did have a fever tachycardia source likely acute COVID-19 infection and concern for possible left basilar secondary bacterial pneumonia in this patient who is [facility] resident we will need to cover for the gram-negative's pathogen 2 sputum for Gram stain and culture not collected and blood cultures has been negative 3-local wound care to the right leg wound with Aquacel silver dressing changed every 48 hour 4patient has shown clinical improvement, the patient has been cleared for discharge by pulmonary we will consider short course of oral Augmentin on discharge this was discussed with the admitting team working on discharge Dictation was produced using [employer] dictation software. please excuse any grammatical, word or spelling errors. Time with Patient: Less than 30
== END 2023-10-07 16:24 | DRG 871 ==
LOC: EC 11:02 → EEVIPCON 11:02 → 2SICU 14:24
PROVIDERS: ADMIT Hospitalist; ATTEND Hospitalist
PROC: 5A09357 Assistance with Respiratory Ventilation, Less than 24 Consecutive Hours, Continuous Positive Airway Pressure (ICD-10-PCS; principal; 2023-10-01)
PROC: 02HV33Z Insertion of Infusion Device into Superior Vena Cava, Percutaneous Approach (ICD-10-PCS; 2023-10-01)
PROC: B5181ZA Fluoroscopy of Superior Vena Cava using Low Osmolar Contrast, Guidance (ICD-10-PCS; 2023-10-01)
PROC: B548ZZA Ultrasonography of Superior Vena Cava, Guidance (ICD-10-PCS; 2023-10-01)
PROC: 3E033XZ Introduction of Vasopressor into Peripheral Vein, Percutaneous Approach (ICD-10-PCS; 2023-10-01)
DX: A41.89 Other specified sepsis (principal); G93.41 Metabolic encephalopathy; U07.1 COVID-19; J12.82 Pneumonia due to coronavirus disease 2019; J69.0 Pneumonitis due to inhalation of food and vomit; R65.21 Severe sepsis with septic shock; J96.22 Acute and chronic respiratory failure with hypercapnia; Z68.41 Body mass index [BMI] 40.0-44.9, adult; Z68.42 Body mass index [BMI] 45.0-49.9, adult; N39.0 Urinary tract infection, site not specified; J43.9 Emphysema, unspecified; I10 Essential (primary) hypertension; E78.5 Hyperlipidemia, unspecified; I89.0 Lymphedema, not elsewhere classified; E66.01 Morbid (severe) obesity due to excess calories; F20.9 Schizophrenia, unspecified; I87.2 Venous insufficiency (chronic) (peripheral); R60.9 Edema, unspecified; R29.6 Repeated falls; Z79.01 Long term (current) use of anticoagulants; Z79.4 Long term (current) use of insulin; Z79.51 Long term (current) use of inhaled steroids; Z79.82 Long term (current) use of aspirin; Z79.84 Long term (current) use of oral hypoglycemic drugs; Z79.899 Other long term (current) drug therapy; Z91.040 Latex allergy status; Z91.048 Other nonmedicinal substance allergy status; Z91.018 Allergy to other foods; Z91.81 History of falling; Z11.52 Encounter for screening for COVID-19
CPT/HCPCS: 36415; 36600; 51702; 70450; 71045; 71275; 80048; 80053; 81001; 82140; 82803; 82805; 83036; 83605; 83735; 83880; 84484; 85025; 85379; 85610; 85730; 86140; 86850; 86900; 86901; 87040; 87636; 93005; 93970; 94640; 94660; 96365; 96367; 96375; 99291

== ENCOUNTER 2024-09-09 12:25 | Inpatient (IN) | payer MEDICARE, OTHER ==
--- NOTE | 2024-09-09 12:48 | ED ---
General Adult HPI - General Chief complaint: Altered Mental Status Stated complaint: TRISTIAN Time Seen by Provider: 09/09/24 12:31 Source: patient, EMS, RN notes reviewed, old records reviewed Mode of arrival: EMS Limitations: altered mental status - History of Present Illness Initial comments: Patient is a 64-year-old female present to the emergency department from assisted for concerns for difficulty breathing. Patient is a poor historian and offers little information. Patient has history of COPD and CHF. Patient has had cough. - Related Data Home Medications Medication Instructions Recorded Confirmed Ergocalciferol [Vitamin D2 50,000 unit PO SA@1700 09/02/19 10/01/23 (DRISDOL)] Linagliptin [Tradjenta] 5 mg PO DAILY@0800 04/20/20 10/01/23 Ipratropium-Albuterol Nebulize 3 ml INHALATION RT-QID@,,,04/12/21 10/01/23 [Duoneb 0.5 mg-3 mg/3 ml Soln] Albuterol Sulfate [Proair Hfa] 2 puff INHALATION RT-Q6H PRN 11/05/21 10/01/23 Atorvastatin Calcium [Lipitor] 20 mg PO HS 11/05/21 10/01/23 Budesonide-Formot 160-4.5 Mcg 2 puff INHALATION RT-BID@,11/05/21 10/01/23 [Symbicort 160-4.5 Mcg Inhaler] metFORMIN HCL [Glucophage] 1,000 mg PO BID@0800,1700 11/05/21 10/01/23 Ascorbic Acid [Vitamin C] 500 mg PO BID@0800,1700 12/07/21 10/01/23 Aspirin 81 mg PO DAILY@0800 12/07/21 10/01/23 Famotidine [Pepcid] 20 mg PO BID@0800,1700 12/07/21 10/01/23 Rivaroxaban [Xarelto] 10 mg PO DAILY@0800 12/07/21 10/01/23 Zinc Sulfate [Orazinc] 220 mg PO DAILY@1700 12/07/21 10/01/23 Furosemide [Lasix] 20 mg PO DAILY@0800 10/01/23 10/01/23 INSULIN ASPART (NovoLOG) [NovoLOG 7 unit SQ BID@0700,1630 10/01/23 10/01/23 (formulary)] INSULIN ASPART (NovoLOG) [NovoLOG 10 unit SQ DAILY@1100 10/01/23 10/01/23 (formulary)] INSULIN ASPART (NovoLOG) [NovoLOG See Protocol SQ AC-TID 10/01/23 10/01/23 (formulary)] Magnesium Hydroxide [Milk of 7,200 mg PO Q48H PRN 10/01/23 10/01/23 Magnesia Concentrate] Na Phos,M-B/Na Phos,Di-Ba [Fleet 133 ml RECTAL DAILY PRN 10/01/23 10/01/23 Adult] bisacodyL [Dulcolax] 10 mg RECTAL DAILY PRN 10/01/23 10/01/23 cloZAPine [Clozaril] 200 mg PO HS@2100 10/01/23 10/01/23 predniSONE 10 mg PO DAILY@0800 10/01/23 10/01/23 Previous Rx's Medication Instructions Recorded Acetaminophen [Tylenol] 500 mg PO Q6H PRN #0 11/16/21 Lactulose [Cephulac] 20 gm PO DAILY PRN ml 12/11/21 Amoxic-Pot Clav 875-125Mg 1 tab PO Q12HR 5 Days #10 tab 10/07/23 [Augmentin 875-125] Divalproex [Depakote] 500 mg PO DAILY #15 tab 10/07/23 Divalproex [Depakote] 750 mg PO HS #15 tab 10/07/23 Insulin Detemir (Levemir) [Levemir] 10 unit SQ DAILY@0700 each 10/07/23 dexAMETHasone [Decadron] 4 mg PO DAILY@0800 4 Days #4 10/07/23 Allergies Allergy/AdvReac Type Severity Reaction Status Date / Time honey Allergy Unknown Verified 10/01/23 11:33 latex Allergy Unknown Verified 10/01/23 11:33 risperidone [From Risperdal] Allergy Unknown Verified 10/01/23 11:33 whey Allergy Unknown Verified 10/01/23 11:33 Review of Systems ROS Statement: Those systems with pertinent positive or pertinent negative responses have been documented in the HPI. ROS Other: All systems not noted in ROS Statement are negative. Limitations: ROS unobtainable due to patients medical condition Respiratory: Reports: cough, dyspnea Past Medical History Past Medical History: COPD, Diabetes Mellitus, Hyperlipidemia, Hypertension Additional Past Medical History / Comment(s): Pt recently hospitalized at [facility] for bronchitis, NIDDM type II, O2 ATC now, FALLS, chronic bilateral lower extremity edema, constipation. History of Any Multi-Drug Resistant Organisms: None Reported Past Surgical History: Section Additional Past Surgical History / Comment(s): colonoscopy/benign polypectomy Past Anesthesia/Blood Transfusion Reactions: No Reported Reaction Smoking Status: Current every day smoker - Past Family History family Family Medical History: Unable to Obtain General Exam Limitations: altered mental status General appearance: alert Head exam: Present: normocephalic Eye exam: Present: normal appearance ENT exam: Present: normal oropharynx Neck exam: Present: normal inspection Respiratory exam: Present: wheezes, decreased breath sounds Cardiovascular Exam: Present: regular rate, normal rhythm GI/Abdominal exam: Present: soft. Absent: tenderness Extremities exam: Present: pedal edema. Absent: calf tenderness Neurological exam: Present: alert Expanded Eye Response: (4) open spontaneously Motor Response: (6) obeys commands Verbal Response: (4) confused conversation Psychiatric exam: Present: flat affect Skin exam: Present: normal color Course Vital Signs 09/09/24 09/09/24 09/09/24 12:30 12:51 12:58 Temperature 99.1 F Pulse Rate 96 92 Respiratory 25 H 23 Rate Blood Pressure 115/88 97/49 O2 Sat by Pulse 92 L 94 L Oximetry Fraction of 80 Inspired Oxygen (FIO2) 09/09/24 09/09/24 09/09/24 12:59 13:07 14:17 Temperature Pulse Rate 90 91 90 Respiratory 25 H Rate Blood Pressure 96/68 O2 Sat by Pulse 97 Oximetry Fraction of Inspired Oxygen (FIO2) EKG Findings - EKG Results: EKG: interpreted by ERMD, sinus rhythm, normal axis, normal QRS, normal ST/T Medical Decision Making - Medical Decision Making MDM back was pt. sent in by a medical professional or institution (, PA, FENCE SETTER, urgent care, hospital, or assisted...) When possible be specific @ -Patient was sent in by assisted Did you speak to anyone other than the patient for history (EMS, parent, family, police, friend...)? What history was obtained from this source @ -EMS helps provide history including oxygen use Did you review nursing and triage notes (agree or disagree)? Why? @ -I reviewed and agree with nursing and triage notes Were old charts reviewed (outside hosp., previous admission, EMS record, old EKG, old radiological studies, urgent care reports/EKG's, assisted records)? Report findings @ -Previous x-ray and admissions reviewed Differential Diagnosis (chest pain, altered mental status, abdominal pain women, abdominal pain men, vaginal bleeding, weakness, fever, dyspnea, syncope, headache, dizziness, GI bleed, back pain, seizure, CVA, palpatations, mental health, musculoskeletal)? @ -Differential Dyspnea: Coronary syndrome, arrhythmia, tamponade, asthma, COPD, pulmonary embolism, pneumonia, pneumothorax, pulmonary effusion, anaphylaxis, diabetic ketoacidosis, flailed chest, pulmonary contusion, diaphragmatic rupture, anemia, neuromuscular, this is not meant to be an all-inclusive list. EKG interpreted by me (3pts min.). @ -As above X-rays interpreted by me (1pt min.). @ -Chest x-ray shows bibasilar infiltrates and effusion with cardiomegaly CT interpreted by me (1pt min.). @ -None done U/S interpreted by me (1pt. min.). @ -None done What testing was considered but not performed or refused? (CT, X-rays, U/S, labs)? Why? @ -None What meds were considered but not given or refused? Why? @ -None Did you discuss the management of the patient with other professionals (professionals i.e. , PA, FENCE SETTER, lab, RT, psych nurse, director social service, corduroy brusher operator, teacher, aviation tactical readiness officer, upper caser)? Give summary @ -Case was discussed with Dr. Day who will admit covering Dr. Fernandez Was smoking cessation discussed for >3mins.? @ -No Was critical care preformed (if so, how long)? @ -32 minutes critical care time Were there social determinants of health that impacted care today? How? (Homelessness, low income, unemployed, alcoholism, drug addiction, transportation, low edu. Level, literacy, decrease access to med. care, custodial, rehab)? @ -No Was there de-escalation of care discussed even if they declined (Discuss DNR or withdrawal of care, Hospice)? DNR status @ -No What co-morbidities impacted this encounter? (DM, HTN, Smoking, COPD, CAD, Cancer, CVA, ARF, Chemo, Hep., AIDS, mental health diagnosis, sleep apnea, morbid obesity)? @ -History of CHF and history of COPD Was patient admitted / discharged? Hospital course, mention meds given and route, prescriptions, significant lab abnormalities, going to OR and other pertinent info. @ -Patient presents with dyspnea with history of CHF and COPD. Clinically patient presents with as COPD type patient. Infectious etiology not ruled out. Blood culture and lactic acid and IV antibiotics all started. Patient will not be provided fluid bolus secondary to history of CHF as well as concern for some CHF on chest x-ray. Patient will be admitted with consults for pulmonary and cardiology. Admission orders written. Undiagnosed new problem with uncertain prognosis? @ -No Drug Therapy requiring intensive monitoring for toxicity (Heparin, Nitro, Insulin, Cardizem)? @ -No Were any procedures done? @ -No Diagnosis/symptom? @ -COPD, CHF, sepsis Acute, or Chronic, or Acute on Chronic? @ -Acute on chronic, acute on chronic, acute Uncomplicated (without systemic symptoms) or Complicated (systemic symptoms)? @ -Complicated with some fluid overload Side effects of treatment? @ -No Exacerbation, Progression, or Severe Exacerbation? @ -Observation for COPD and CHF Poses a threat to life or bodily function? How? (Chest pain, [place], [place], pneumonia, PE, COPD, DKA, ARF, appy, cholecystitis, CVA, Diverticulitis, Homicidal, Suicidal, threat to staff... and all critical care pts) @ -Threat to pulmonary function - Lab Data Result diagrams: 09/09/24 12:48 09/09/24 12:48 Lab Results 09/09/24 09/09/24 09/09/24 Range/Units 12:48 12:48 12:48 WBC 11.7 H (3.8-10.6) k/uL RBC 3.68 L (3.80-5.40) m/uL Hgb 10.7 L (11.4-16.0) gm/dL Hct 34.4 (34.0-46.0) % MCV 93.5 (80.0-100.0) fL MCH 28.9 (25.0-35.0) pg MCHC 30.9 L (31.0-37.0) g/dL RDW 16.0 H (11.5-15.5) % Plt Count 219 (150-450) k/uL MPV 7.9 Neutrophils % 82 % Lymphocytes % 11 % Monocytes % 6 % Eosinophils % 0 % Basophils % 0 % Neutrophils # 9.6 H (1.3-7.7) k/uL Lymphocytes # 1.3 (1.0-4.8) k/uL Monocytes # 0.7 (0-1.0) k/uL Eosinophils # 0.0 (0-0.7) k/uL Basophils # 0.0 (0-0.2) k/uL Hypochromasia Moderate Anisocytosis Slight PT 11.4 (10.0-12.5) sec INR 1.0 (<1.2) APTT 30.9 H (22.0-30.0) sec Sodium 141 (137-145) mmol/L Potassium 4.5 (3.5-5.1) mmol/L Chloride 98 (98-107) mmol/L Carbon Dioxide 35 H (22-30) mmol/L Anion Gap 8 mmol/L BUN 17 (7-17) mg/dL Creatinine 0.63 (0.52-1.04) mg/dL Est GFR (CKD-EPI)AfAm >90 (>60 ml/min/1.73 sqM) Est GFR (CKD-EPI)NonAf >90 (>60 ml/min/1.73 sqM) Glucose 162 H (74-99) mg/dL Plasma Lactic Acid Chapo (0.7-2.0) mmol/L Calcium 8.1 L (8.4-10.2) mg/dL Magnesium 2.1 (1.6-2.3) mg/dL Total Bilirubin 0.4 (0.2-1.3) mg/dL AST 17 (14-36) U/L ALT 13 (4-34) U/L Alkaline Phosphatase 93 (38-126) U/L Troponin I (0.000-0.034) ng/mL NT-Pro-B Natriuret Pep 362 pg/mL Total Protein 6.0 L (6.3-8.2) g/dL Albumin 3.7 (3.5-5.0) g/dL Influenza Type A (PCR) (Not Detectd) Influenza Type B (PCR) (Not Detectd) RSV (PCR) (Not Detectd) SARS-CoV-2 (PCR) (Not Detectd) 09/09/24 09/09/24 09/09/24 Range/Units 12:48 12:48 12:48 WBC (3.8-10.6) k/uL RBC (3.80-5.40) m/uL Hgb (11.4-16.0) gm/dL Hct (34.0-46.0) % MCV (80.0-100.0) fL MCH (25.0-35.0) pg MCHC (31.0-37.0) g/dL RDW (11.5-15.5) % Plt Count (150-450) k/uL MPV Neutrophils % % Lymphocytes % % Monocytes % % Eosinophils % % Basophils % % Neutrophils # (1.3-7.7) k/uL Lymphocytes # (1.0-4.8) k/uL Monocytes # (0-1.0) k/uL Eosinophils # (0-0.7) k/uL Basophils # (0-0.2) k/uL Hypochromasia Anisocytosis PT (10.0-12.5) sec INR (<1.2) APTT (22.0-30.0) sec Sodium (137-145) mmol/L Potassium (3.5-5.1) mmol/L Chloride (98-107) mmol/L Carbon Dioxide (22-30) mmol/L Anion Gap mmol/L BUN (7-17) mg/dL Creatinine (0.52-1.04) mg/dL Est GFR (CKD-EPI)AfAm (>60 ml/min/1.73 sqM) Est GFR (CKD-EPI)NonAf (>60 ml/min/1.73 sqM) Glucose (74-99) mg/dL Plasma Lactic Acid Chapo 2.2 H* (0.7-2.0) mmol/L Calcium (8.4-10.2) mg/dL Magnesium (1.6-2.3) mg/dL Total Bilirubin (0.2-1.3) mg/dL AST (14-36) U/L ALT (4-34) U/L Alkaline Phosphatase (38-126) U/L Troponin I <0.012 (0.000-0.034) ng/mL NT-Pro-B Natriuret Pep pg/mL Total Protein (6.3-8.2) g/dL Albumin (3.5-5.0) g/dL Influenza Type A (PCR) Not Detected (Not Detectd) Influenza Type B (PCR) Not Detected (Not Detectd) RSV (PCR) Not Detected (Not Detectd) SARS-CoV-2 (PCR) Not Detected (Not Detectd) Critical Care Time Critical Care Time: Yes Disposition Clinical Impression: COPD (chronic obstructive pulmonary disease) Disposition: ADMITTED IP TO THIS [facility] Condition: Serious Is patient prescribed a controlled substance at d/c from ED?: No Referrals: Bello Alberto MD [Primary Care Provider] - 1-2 days Time of Disposition: 14:43
[2024-09-09] MEDS: IPRATROPIUM-ALBUTEROL 3 ML NEB INHALATION STA (12:59)
[2024-09-09 13:04] LABS: Partial Thromboplastin Time 30.9 sec (22.0-30.0); Prothrombin Time 11.4 sec (10.0-12.5)
[2024-09-09 13:09] LABS: Anisocytosis Slight; Basophils % (A) 0 %; Eosinophils % (A) 0 %; HCT 34.4 % (34.0-46.0); HGB 10.7 gm/dL (11.4-16.0); Hypochromasia Moderate; Lymphocytes # (A) 1.3 k/uL (1.0-4.8); Lymphocytes % (A) 11 %; MCH 28.9 pg (25.0-35.0); MCHC 30.9 g/dL (31.0-37.0); MCV 93.5 fL (80.0-100.0); Mean Platelet Volume 7.9; Monocytes # (A) 0.7 k/uL (0-1.0); Monocytes % (A) 6 %; Neutrophils # (A) 9.6 k/uL (1.3-7.7); Neutrophils % (A) 82 %; Platelet Count 219 k/uL (150-450); RBC 3.68 m/uL (3.80-5.40); WBC 11.7 k/uL (3.8-10.6)
[2024-09-09 13:29] LABS: ALT 13 U/L (4-34); AST 17 U/L (14-36); African American GFR (CKD) >90 (>60 ml/min/1.73 sqM); Albumin 3.7 g/dL (3.5-5.0); Alkaline Phosphatase 93 U/L (38-126); Blood Urea Nitrogen 17 mg/dL (7-17); Calcium 8.1 mg/dL (8.4-10.2); Chloride 98 mmol/L (98-107); Glucose 162 mg/dL (74-99); Magnesium 2.1 mg/dL (1.6-2.3); Non-African American GFR(CKD) >90 (>60 ml/min/1.73 sqM); Potassium 4.5 mmol/L (3.5-5.1); Sodium 141 mmol/L (137-145); Total Bilirubin 0.4 mg/dL (0.2-1.3)
[2024-09-09 13:36] LABS: Anion Gap 8 mmol/L; Carbon Dioxide 35 mmol/L (22-30)
[2024-09-09 13:40] LABS: NT-Pro-B-Type Natriuretic Pept 362 pg/mL
--- NOTE | 2024-09-09 14:13 | XR ---
EXAMINATION TYPE: XR chest 1V portable DATE OF EXAM: 09/09/2024 2:08 PM COMPARISON: Chest radiographs from 10/06/2023 TECHNIQUE: XR chest 1V portable Portable AP radiograph of the chest. CLINICAL INDICATION:Female, 64 years old with history of melquiades; FINDINGS: Lungs/Pleura: No pleural effusion. Blunting of the left costophrenic angle. Bibasilar patchy airspace opacities. Heart/mediastinum: Cardiomediastinal silhouette is enlarged. Atherosclerotic calcifications are seen in the aorta. Musculoskeletal: No acute osseous pathology. IMPRESSION: Bibasilar patchy airspace opacities with cardiomegaly and small left pleural effusion. Findings may r elate to CHF exacerbation with pulmonary edema with underlying infectious process not excluded. [facility], , 09/09/2024 2:11 PM
[2024-09-09] MEDS ORDERED: NALOXONE 0.4 MG/ML 1 ML VIAL IVP PRN (14:44)
[2024-09-09] MEDS ORDERED: IPRATROPIUM-ALBUTEROL 3 ML NEB INHALATION PRN (14:44)
[2024-09-09] MEDS: PIPERACILLIN-TAZOBACTAM 3.375 GM in SODIUM CHLORIDE 0.9% 100 ML IVPB STA (14:47)
[2024-09-09] MEDS: PANTOPRAZOLE 40 MG/10 ML VIAL IVP SCH (14:47)
[2024-09-09] MEDS: methylPREDNISolone SOD SUCCI 125 MG/2 ML VIAL IV STA (14:52)
[2024-09-09] MEDS ORDERED: PIPERACILLIN-TAZOBACTAM 3.375 GM in SODIUM CHLORIDE 0.9% 100 ML IVPB SCH (15:00)
[2024-09-09] MEDS: IPRATROPIUM-ALBUTEROL 3 ML NEB INHALATION SCH (15:34)
[2024-09-09] MEDS ORDERED: bisacodyL 10 MG SUPP RECTAL PRN (16:19)
[2024-09-09] MEDS: ASCORBIC ACID 500 MG TAB PO SCH (16:40)
[2024-09-09] MEDS: FUROSEMIDE 20 MG TAB PO SCH (16:40)
[2024-09-09] MEDS: ZINC SULFATE 220 MG CAP PO SCH (16:40)
[2024-09-09] MEDS: metFORMIN 500 MG TAB PO SCH (16:41)
[2024-09-09] MEDS: methylPREDNISolone SOD SUCCI 125 MG/2 ML VIAL IV SCH (17:06)
[2024-09-09] MEDS ORDERED: DEXTROSE 50% SYRINGE 50 ML IVP PRN ×2 (18:19)
[2024-09-09 20:03] LABS: Glucose,Whole Blood 192 mg/dL (70-110)
--- NOTE | 2024-09-09 22:03 | HP ---
HISTORY AND PHYSICAL CHIEF COMPLAINT: Shortness of breath and change in mental status. HISTORY OF PRESENT ILLNESS: This is a 64-year-old woman with a past medical history of multiple medical problems including COPD, diabetes mellitus, hyperlipidemia, being followed in the [facility], was admitted with shortness of breath and change in mental status. The patient had a chest x-ray on admission, which I reviewed personally showed bilateral pneumonia. The patient was admitted for further evaluation and treatment. There is no history of any fever, rigors, or chills at this time. White count is elevated at 11.7. Lactic acid 2.2. Viral panels are negative. PAST MEDICAL HISTORY: Reviewed include diabetes mellitus, COPD. Rest of the history and rest of the chart is also reviewed. HOME MEDICATIONS: Reviewed include prednisone. Doses are not confirmed yet. ALLERGIES: Honey. Rest of allergies noted. FAMILY HISTORY: Could not be taken because of the change in mental status. SOCIAL HISTORY: Could not be taken because of the change in mental status. REVIEW OF SYSTEMS: Could not be taken because of the change in mental status. PHYSICAL EXAMINATION: VITAL SIGNS: Pulse is 90, blood pressure 96/58, respirations 20. HEENT: Conjunctivae normal. NECK: No JVD. CARDIOVASCULAR: S1, S2. RESPIRATIONS: Bilateral scattered rhonchi and crackles. Respiratory wheezing. ABDOMEN: Soft, obese. LEGS: No edema. NERVOUS SYSTEM: Nonfocal. SKIN: No ulcer, rash, bleeding. JOINTS: No active deforming arthropathy. LABORATORY DATA: WBC 11.7. ASSESSMENT: 1. Bilateral pneumonia possibly gram-negative. 2. Chronic obstructive pulmonary disease acute exacerbation. 3. Diabetes mellitus, type 2. 4. Hypertension. 5. Hyperlipidemia. RECOMMENDATIONS AND DISCUSSION: This is a 64-year-old woman, who presented with multiple complex medical issues. Monitor the patient closely. I would recommend broad-spectrum IV antibiotics. I would recommend IV Zosyn. The possibility of hospital-acquired pneumonia is also there because of the recent hospitalization, otherwise resume the home medications once they are confirmed. Overall prognosis extremely guarded because of multiple complex medical illness. We will obtain Infectious Disease and as well as Pulmonary consultations also. MMODL / IJN: [id number] /
[2024-09-09] MEDS: ATORVASTATIN 20 MG TAB PO SCH (22:04)
[2024-09-09] MEDS: cloZAPine 100 MG TAB PO SCH (22:04)
[2024-09-09] MEDS: DIVALPROEX ER 500 MG TAB.ER.24H PO SCH (22:05)
[2024-09-09] MEDS: DIVALPROEX ER 250 MG TAB.ER.24H PO SCH (22:05)
[2024-09-09] MEDS: INSULIN ASPART (NovoLOG) 100 UNIT/ML VIAL SQ SCH (22:05)
[2024-09-10] MEDS: PIPERACILLIN-TAZOBACTAM 3.375 GM in SODIUM CHLORIDE 0.9% 100 ML IVPB SCH (00:37)
[2024-09-10 01:22] LABS: Glucose,Whole Blood 190 mg/dL (70-110)
[2024-09-10 06:17] LABS: Glucose,Whole Blood 174 mg/dL (70-110)
[2024-09-10 06:59] LABS: Basophils % (A) 0 %; Eosinophils % (A) 0 %; HCT 33.4 % (34.0-46.0); HGB 10.2 gm/dL (11.4-16.0); Hypochromasia Marked; Lymphocytes # (A) 0.6 k/uL (1.0-4.8); Lymphocytes % (A) 10 %; MCH 29.2 pg (25.0-35.0); MCHC 30.6 g/dL (31.0-37.0); MCV 95.6 fL (80.0-100.0); Mean Platelet Volume 8.1; Monocytes # (A) 0.2 k/uL (0-1.0); Monocytes % (A) 3 %; Neutrophils # (A) 5.3 k/uL (1.3-7.7); Neutrophils % (A) 87 %; Platelet Count 232 k/uL (150-450); RDW 15.7 % (11.5-15.5); WBC 6.2 k/uL (3.8-10.6)
--- NOTE | 2024-09-10 07:48 | P.CRDCN ---
History of Present Illness Consult date: 09/10/24 History of present illness: History of Present Illness: The patient is a 64-year-old female, resident [facility] who was transferred to the emergency room with change in mental status, worsening dyspnea. Apparently she has a history of confusion, severe COPD on presentation she had elevation of her lactic acid. Cardiology consultation was requested for possible CHF. Her NT proBNP is normal. She had an echocardiogram performed in 2019 that showed a preserved systolic function. No other history could be obtained from the patient. She is somnolent, not responding to verbal stimulation. Moving all her extremities. According to the record she has a history of chronic hypoxemia on home oxygen. She has a history of diabetes, hyperlipidemia and hypertension. She has been in sinus mechanism since admission. According to the record she has chronic lower extremities edema. She is on Xarelto according to them medication list but at 10 mg daily, indica tions for that are unclear on the records. Her duplex scan of the lower extremities in September 2023 showed no evidence of DVT. No other history could be obtained. Medications: Albuterol, aspirin, Lipitor 20 mg daily, Lasix 20 mg twice a day, insulin, Xarelto 10 mg daily, Tradjenta, Depakote Review of Systems: Could not be obtained Physical Examination: 64-year-old female, obese, on airflow, not responding to verbal stimuli,Blood pressure 139/60, Heart rate 70 Head: Normocephalic. Eyes: Sclerae nonicteric. Neck: Good carotid upstroke, no bruit, no jugular venous distention. Lungs: Few crackles anteriorly. Heart: Regular rate and rhythm, S1-S2, no S3, no rub. Systolic ejection murmur. Abdomen: Soft nontender,, obese positive bowel sounds no organomegaly. Extremities: +1 edema, intact distal pulses. Labs: WBC 6.2, hemoglobin 10.2, platelet 232. On presentation WBC 11.7. Troponin l ess than 0.012. NT proBNP 362. Potassium 4.5. BUN 17 creatinine 0.63 EKG: Chest x-ray with sinus mechanism rate of [address]-T wave changes Impression: 1. Change in mental status with worsening dyspnea probable pneumonia 2. No evidence of CHF on exam. Her NT proBNP is normal 3. History of COPD on home oxygen 4. History of diabetes 5. History of hypertension 6. History of hyperlipidemia Plan: 1. No evidence of acute fluid overload at this point 2. Obtain an echocardiogram with Doppler 3. If there is no evidence of significant abnormalities on the echo no further cardiac workup will be needed 4. Thank you for this consult we will follow with you Past Medical History Past Medical History: COPD, Diabetes Mellitus, Hyperlipidemia, Hypertension Additional Past Medical History / Comment(s): NIDDM type II, FALLS, chronic bilateral lower extremity edema, constipation. History of Any Multi-Drug Resistant Organisms: None Reported Past Surgical History: Section Additional Past Surgical History / Comment(s): colonoscopy/benign polypectomy Past Anesthesia/Blood Transfusion Reactions: No Reported Reaction Smoking Status: Former smoker - Past Family History family Family Medical History: Unable to Obtain Medications and Allergies Home Medications Medication Instructions Recorded Confirmed Type Ergocalciferol [Vitamin D2 50,000 unit PO SA@1700 09/02/19 09/09/24 History (DRISDOL)] Linagliptin [Tradjenta] 5 mg PO DAILY@0800 04/20/20 09/09/24 History Ipratropium-Albuterol Nebulize 3 ml INHALATION RT-QID@00,06,12,18 04/12/21 09/09/24 History [Duoneb 0.5 mg-3 mg/3 ml Soln] Atorvastatin Calcium [Lipitor] 20 mg PO HS@2100 11/05/21 09/09/24 History Budesonide-Formot 160-4.5 Mcg 2 puff INHALATION RT-BID@08,17 11/05/21 09/09/24 History [Symbicort 160-4.5 Mcg Inhaler] metFORMIN HCL [Glucophage] 1,000 mg PO BID@0800,1700 11/05/21 09/09/24 History Acetaminophen [Tylenol] 500 mg PO Q6H PRN #0 11/16/21 09/09/24 Rx Ascorbic Acid [Vitamin C] 500 mg PO BID@0800,1700 12/07/21 09/09/24 History Aspirin 81 mg PO DAILY@0800 12/07/21 09/09/24 History Famotidine [Pepcid] 20 mg PO DAILY@0800 12/07/21 09/09/24 History Rivaroxaban [Xarelto] 10 mg PO DAILY@0800 12/07/21 09/09/24 History Zinc Sulfate [Orazinc] 220 mg PO DAILY@1700 12/07/21 09/09/24 History Lactulose [Cephulac] 20 gm PO DAILY PRN ml 12/11/21 09/09/24 Rx Furosemide [Lasix] 20 mg PO BID@0800,1700 10/01/23 09/09/24 History Magnesium Hydroxide [Milk of 7,200 mg PO DAILY PRN 10/01/23 09/09/24 History Magnesia Concentrate] Na Phos,M-B/Na Phos,Di-Ba [Fleet 133 ml RECTAL DAILY PRN 10/01/23 09/09/24 History Adult] bisacodyL [Dulcolax] 10 mg RECTAL DAILY PRN 10/01/23 09/09/24 History cloZAPine [Clozaril] 200 mg PO HS@2100 10/01/23 09/09/24 History predniSONE 10 mg PO DAILY@0800 10/01/23 09/09/24 History Divalproex ER [Depakote ER] 250 mg PO HS 09/09/24 09/09/24 History Divalproex ER [Depakote ER] 500 mg PO BID@0800,2100 09/09/24 09/09/24 History Insulin Degludec [Tresiba 10 units SQ DAILY@0800 09/09/24 09/09/24 History Flextouch U-100 Pen] Insulin Lispro [Admelog] 7 units SQ BID@0800,1700 09/09/24 09/09/24 History Insulin Lispro [Admelog] 10 units SQ DAILY@1200 09/09/24 09/09/24 History Insulin Lispro [Admelog] See Protocol SQ AC-TID@07,,1630 09/09/24 09/09/24 History Loperamide [Imodium] 2 - 4 mg PO TID PRN MDD 8mg 09/09/24 09/09/24 History Allergies Allergy/AdvReac Type Severity Reaction Status Date / Time honey Allergy Unknown Verified 09/09/24 14:59 latex Allergy Unknown Verified 09/09/24 14:59 risperidone [From Risperdal] Allergy Unknown Verified 09/09/24 14:59 whey Allergy Unknown Verified 09/09/24 14:59 Physical Exam Vitals: Vital Signs Temp Pulse Pulse Resp BP BP Pulse Ox 09/10/24 04:03 95 09/10/24 03:23 98.2 F 74 20 139/61 95 09/10/24 02:00 20 09/10/24 00:00 79 20 122/69 95 09/09/24 23:16 09/09/24 20:57 93 09/09/24 20:56 93 09/09/24 20:46 90 96 09/09/24 20:00 97.8 F 77 20 117/58 96 09/09/24 18:59 80 20 09/09/24 17:30 97.4 F L 80 20 131/66 96 09/09/24 17:00 83 25 H 130/70 95 09/09/24 16:05 87 22 122/68 95 09/09/24 15:42 86 09/09/24 15:37 94 L 09/09/24 15:34 87 09/09/24 14:41 09/09/24 14:17 90 25 H 96/68 97 09/09/24 13:07 91 09/09/24 12:59 90 09/09/24 12:58 09/09/24 12:51 92 23 97/49 94 L 09/09/24 12:30 99.1 F 96 25 H 115/88 92 L FiO2 09/10/24 04:03 60 09/10/24 03:23 70 09/10/24 02:00 09/10/24 00:00 70 09/09/24 23:16 60 09/09/24 20:57 09/09/24 20:56 09/09/24 20:46 60 09/09/24 20:00 70 09/09/24 18:59 09/09/24 17:30 70 09/09/24 17:00 09/09/24 16:05 09/09/24 15:42 09/09/24 15:37 60 09/09/24 15:34 09/09/24 14:41 70 09/09/24 14:17 09/09/24 13:07 09/09/24 12:59 09/09/24 12:58 80 09/09/24 12:51 09/09/24 12:30 Intake and Output 09/09/24 09/10/24 09/10/24 22:59 06:59 14:59 Output Total 500 Balance -500 Output: Urine 500 Other: Voiding Method External Catheter External Catheter Weight 136.7 kg 137 kg Results 09/10/24 06:34 09/09/24 12:48 Cardiac Enzymes 09/09/24 09/09/24 Range/Units 12:48 12:48 AST 17 (14-36) U/L Troponin I <0.012 (0.000-0.034) ng/mL Coagulation 09/09/24 Range/Units 12:48 PT 11.4 (10.0-12.5) sec APTT 30.9 H (22.0-30.0) sec CBC 09/09/24 09/10/24 Range/Units 12:48 06:34 WBC 11.7 H 6.2 (3.8-10.6) k/uL RBC 3.68 L 3.50 L (3.80-5.40) m/uL Hgb 10.7 L 10.2 L (11.4-16.0) gm/dL Hct 34.4 33.4 L (34.0-46.0) % Plt Count 219 232 (150-450) k/uL Comprehensive Metabolic Panel 09/09/24 Range/Units 12:48 Sodium 141 (137-145) mmol/L Potassium 4.5 (3.5-5.1) mmol/L Chloride 98 (98-107) mmol/L Carbon Dioxide 35 H (22-30) mmol/L BUN 17 (7-17) mg/dL Creatinine 0.63 (0.52-1.04) mg/dL Glucose 162 H (74-99) mg/dL Calcium 8.1 L (8.4-10.2) mg/dL AST 17 (14-36) U/L ALT 13 (4-34) U/L Alkaline Phosphatase 93 (38-126) U/L Total Protein 6.0 L (6.3-8.2) g/dL Albumin 3.7 (3.5-5.0) g/dL Current Medications Generic Name Dose Route Start Last Admin Trade Name Freq PRN Reason Stop Dose Admin Acetaminophen 650 mg 09/09/24 14:44 Acetaminophen Tab 325 Mg Tab PO Q4HR PRN Mild Pain or Fever > 100.5 Albuterol/Ipratropium 3 ml 09/09/24 16:00 09/09/24 20:45 Ipratropium-Albuterol 3 Ml Neb INHALATION 3 ml RT-QID TRISH Administration Albuterol/Ipratropium 3 ml 09/09/24 14:44 Ipratropium-Albuterol 3 Ml Neb INHALATION RT-Q2H PRN Shortness Of Breath Or Wheezing Ascorbic Acid 500 mg 09/09/24 17:00 09/09/24 16:40 Ascorbic Acid 500 Mg Tab PO 500 mg BID@0800,1700 [facility] Administration Aspirin 81 mg 09/10/24 08:00 Aspirin 81 Mg PO DAILY@0800 [facility] Atorvastatin Calcium 20 mg 09/09/24 21:00 09/09/24 22:04 Atorvastatin 20 Mg Tab PO Not Given HS@2100 [facility] Bisacodyl 10 mg 09/09/24 16:19 Bisacodyl 10 Mg Supp RECTAL DAILY PRN Constipation Clozapine 200 mg 09/09/24 21:00 09/09/24 22:04 Clozapine 100 Mg Tab PO 09/15/24 23:00 Not Given HS@2100 [facility] Dextrose/Water 25 ml 09/09/24 18:19 Dextrose 50% Syringe 50 Ml IVP PER PROTOCOL PRN Hypoglycemia Protocol Dextrose/Water 50 ml 09/09/24 18:19 Dextrose 50% Syringe 50 Ml IVP PER PROTOCOL PRN Hypoglycemia Protocol Divalproex Sodium 500 mg 09/09/24 21:00 09/09/24 22:05 Divalproex Er 500 Mg Tab.Er.24h PO Not Given BID@0800,2100 [facility] Divalproex Sodium 250 mg 09/09/24 21:00 09/09/24 22:05 Divalproex Er 250 Mg Tab.Er.24h PO Not Given HS [facility] Ergocalciferol 1,250 mcg 09/11/24 17:00 Ergocalciferol 1,250 Mcg (50,000 Iu) Capsule PO SA@1700 [facility] Famotidine 20 mg 09/10/24 08:00 Famotidine 20 Mg Tab PO DAILY@0800 [facility] Furosemide 20 mg 09/09/24 17:00 09/09/24 16:40 Furosemide 20 Mg Tab PO 20 mg BID@0800,1700 [facility] Administration Piperacillin Sod/Tazobactam 100 mls @ 25 mls/hr 09/10/24 00:00 09/10/24 00:37 Sod 3.375 gm/ Sodium Chloride IVPB 25 mls/hr Q8HR TRISH Administration Protocol Insulin Aspart 0 unit 09/09/24 21:00 09/10/24 06:31 Insulin Aspart (Novolog) 100 Unit/Ml Vial SQ Not Given ACHS [facility] Protocol Linagliptin 5 mg 09/10/24 08:00 Linagliptin 5 Mg Tablet PO DAILY@0800 [facility] Metformin HCl 1,000 mg 09/09/24 17:00 09/09/24 16:41 Metformin 500 Mg Tab PO 1,000 mg BID@0800,1700 [facility] Administration Methylprednisolone Sodium Succinate 60 mg 09/09/24 18:00 09/10/24 06:31 Methylprednisolone Sod Succi 125 Mg/2 Ml Vial IV 60 mg Q6HR TRISH Administration Naloxone HCl 0.2 mg 09/09/24 14:44 Naloxone 0.4 Mg/Ml 1 Ml Vial IVP Q2M PRN Opioid Reversal Pantoprazole Sodium 40 mg 09/09/24 14:45 09/09/24 14:47 Pantoprazole 40 Mg/10 Ml Vial IVP 40 mg DAILY TRISH Administration Zinc Sulfate 220 mg 09/09/24 17:00 09/09/24 16:40 Zinc Sulfate 220 Mg Cap PO 220 mg DAILY@1700 [facility] Administration Intake and Output 09/09/24 09/10/24 09/10/24 22:59 06:59 14:59 Output Total 500 Balance -500 Output: Urine 500 Other: Voiding Method External Catheter External Catheter Weight 136.7 kg 137 kg 09/10/24 06:34 09/09/24 12:48
[2024-09-10 08:15] LABS: African American GFR (CKD) >90 (>60 ml/min/1.73 sqM); Anion Gap 0 mmol/L; Blood Urea Nitrogen 23 mg/dL (7-17); Calcium 8.3 mg/dL (8.4-10.2); Carbon Dioxide 39 mmol/L (22-30); Chloride 100 mmol/L (98-107); Glucose 174 mg/dL (74-99); Non-African American GFR(CKD) >90 (>60 ml/min/1.73 sqM); Potassium 4.5 mmol/L (3.5-5.1); Sodium 139 mmol/L (137-145)
[2024-09-10 10:06] LABS: Amorphous Sediment,Urine Few /hpf; Appearance,Urine Cloudy (Clear); Bilirubin,Urine Negative (Negative); Blood,Urine Negative (Negative); Color,Urine Yellow; Glucose,Urine (UA) Negative (Negative); Ketones,Urine 1+ (Negative); Leukocyte Esterase,Urine Negative (Negative); Nitrite,Urine Negative (Negative); Protein,Urine Trace (Negative); RBC,Urine 3 /hpf (0-5); Specific Gravity,Urine 1.027 (1.001-1.035); Squamous Epithelial Cell,Urine 3 /hpf (0-4); Urobilinogen,Urine <2.0 mg/dL (<2.0); WBC,Urine 2 /hpf (0-5)
[2024-09-10] MEDS: ASPIRIN 81 MG PO SCH (11:20)
[2024-09-10] MEDS: LINAGLIPTIN 5 MG TABLET PO SCH (11:20)
[2024-09-10] MEDS: FAMOTIDINE 20 MG TAB PO SCH (11:20)
--- NOTE | 2024-09-10 11:21 | CDI ---
Documentation Clarification Form Date: 09/10/2024 11:02:32 AM From: Sharyn Tarango RN CCDS Phone: [phone] Admit Date: 09/09/2024 02:45:00 PM Patient Name: Tessy Pierson Visit Number: [id number] Discharge Date: ATTENTION: The Clinical Documentation Specialists (CDI) and [facility] Coding Staff appreciate your assistance in clarifying documentation. Please respond to the clarification below the line at the bottom and electronically sign. The CDI & [facility] Coding staff will review the response and follow-up if needed. Please note: Queries are made part of the Legal Health Record. If you have any questions, please contact the author of this message via ITS. Doctor: Elio Day Your patient has the documented symptom of Change in Mental Status 09/09, HP. Additional clarification regarding the etiology/cause of this symptom is requested. History/Risk Factors: 64-year old male presents to the ED for shortness of breath and change in mental status. Medical History: COPD and DM2. Clinical Indicators: VSS, 09/09: B/P 115/88; HR 96; Temp 99.1F Oral; RR 25; SpO2 92% non-rebreather 96% flow rate. Labs, 09/09: Wbc 11.7, Neutrophils 9.6, Carbon dioxide 35, lactic acid 2.2 Chest X Ray, 09/09: Bibasilar patchy airspace opacities with cardiomegaly and small left pleural effusion. HP,08/30: Family History: could not be taken because of the change in mental status. Social History: Could not be taken because of the change in mental status. Review of systems: Could not be taken because of the change in mental status. Chief Complaint: Shortness of breath and change in mental status. Treatment: Please clarify the etiology of the symptom of Change in Mental Status: [ ] Metabolic Encephalopathy due to Pneumonia [ ] Other condition (please specify) [ ] Unable to determine (Template Last Revised: November 2020) Metabolic Encephalopathy due to Pneumonia MTDD
[2024-09-10 11:28] LABS: Glucose,Whole Blood 185 mg/dL (70-110)
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
--- NOTE | 2024-09-10 13:53 | P.CNPUL ---
History of Present Illness Consult date: 09/10/24 Requesting physician: Elio Day Reason for consult: dyspnea, abnormal CXR/CT Chief complaint: Shortness of breath History of present illness: This is a 64-year-old female patient with a history of schizophrenia and resides in a local snf. She also has a history of COPD, diabetes mellitus, hyperlipidemia, hypertension, home oxygen, chronic bilateral lower extremity edema, chronic tobacco dependence. She was brought into the emergency room yesterday with complaints of shortness of breath. Chest x-ray reveals bibasilar patchy airspace opacities with cardiomegaly and small left pleural effusion. White count 6.2. Hemoglobin 10.2. Platelets 232. Sodium 139. Potassium 4.5. Bicarb 39. BUN 23. Creatinine 0.56. Glucose 174. 60%. She is seen today in consultation on the selective care unit. She is currently sitting up in bed. She has pulled off her Airvo high flow oxygen, pulled off her electrodes and gown. She is placed back on the Airvo high flow oxygen at 60 L and 60% FiO2. O2 saturations in the 90s. Is on DuoNeb inhalations, IV Solu-Medrol, oral diuretics. Antibiotics in the form of Zosyn. Review of Systems ROS unobtainable: due to mental status Past Medical History Past Medical History: COPD, Diabetes Mellitus, Hyperlipidemia, Hypertension Additional Past Medical History / Comment(s): NIDDM type II, FALLS, chronic bilateral lower extremity edema, constipation. Per [place] patient takes Xaralto for DVT prophylaxis, no HX DVT/PE, Patietn also wears 2-4LNC, and has body tremors History of Any Multi-Drug Resistant Organisms: None Reported Past Surgical History: Section Additional Past Surgical History / Comment(s): colonoscopy/benign polypectomy Past Anesthesia/Blood Transfusion Reactions: No Reported Reaction Past Psychological History: Schizophrenia Additional Psychological History / Comment(s): Pt resides at [facility]. There are other residence and staff + with covid. She uses no assistive device. She has falls. Smoking Status: Former smoker Past Alcohol Use History: None Reported Additional Past Alcohol Use History / Comment(s): Pt started smoking in 1974 Past Drug Use History: None Reported - Past Family History family Family Medical History: Unable to Obtain Medications and Allergies Home Medications Medication Instructions Recorded Confirmed Type Ergocalciferol [Vitamin D2 50,000 unit PO SA@1700 09/02/19 09/09/24 History (DRISDOL)] Linagliptin [Tradjenta] 5 mg PO DAILY@0800 04/20/20 09/09/24 History Ipratropium-Albuterol Nebulize 3 ml INHALATION RT-QID@00,06,,18 04/12/21 09/09/24 History [Duoneb 0.5 mg-3 mg/3 ml Soln] Atorvastatin Calcium [Lipitor] 20 mg PO HS@2100 11/05/21 09/09/24 History Budesonide-Formot 160-4.5 Mcg 2 puff INHALATION RT-BID@,11/05/21 09/09/24 History [Symbicort 160-4.5 Mcg Inhaler] metFORMIN HCL [Glucophage] 1,000 mg PO BID@0800,1700 11/05/21 09/09/24 History Acetaminophen [Tylenol] 500 mg PO Q6H PRN #0 11/16/21 09/09/24 Rx Ascorbic Acid [Vitamin C] 500 mg PO BID@0800,1700 12/07/21 09/09/24 History Aspirin 81 mg PO DAILY@0800 12/07/21 09/09/24 History Famotidine [Pepcid] 20 mg PO DAILY@0800 12/07/21 09/09/24 History Rivaroxaban [Xarelto] 10 mg PO DAILY@0800 12/07/21 09/09/24 History Zinc Sulfate [Orazinc] 220 mg PO DAILY@1700 12/07/21 09/09/24 History Lactulose [Cephulac] 20 gm PO DAILY PRN ml 12/11/21 09/09/24 Rx Furosemide [Lasix] 20 mg PO BID@0800,1700 10/01/23 09/09/24 History Magnesium Hydroxide [Milk of 7,200 mg PO DAILY PRN 10/01/23 09/09/24 History Magnesia Concentrate] Na Phos,M-B/Na Phos,Di-Ba [Fleet 133 ml RECTAL DAILY PRN 10/01/23 09/09/24 History Adult] bisacodyL [Dulcolax] 10 mg RECTAL DAILY PRN 10/01/23 09/09/24 History cloZAPine [Clozaril] 200 mg PO HS@2100 10/01/23 09/09/24 History predniSONE 10 mg PO DAILY@0800 10/01/23 09/09/24 History Divalproex ER [Depakote ER] 250 mg PO HS 09/09/24 09/09/24 History Divalproex ER [Depakote ER] 500 mg PO BID@0800,2100 09/09/24 09/09/24 History Insulin Degludec [Tresiba 10 units SQ DAILY@0800 09/09/24 09/09/24 History Flextouch U-100 Pen] Insulin Lispro [Admelog] 7 units SQ BID@0800,1700 09/09/24 09/09/24 History Insulin Lispro [Admelog] 10 units SQ DAILY@1200 09/09/24 09/09/24 History Insulin Lispro [Admelog] See Protocol SQ AC-TID@07,11,1630 09/09/24 09/09/24 History Loperamide [Imodium] 2 - 4 mg PO TID PRN MDD 8mg 09/09/24 09/09/24 History Allergies Allergy/AdvReac Type Severity Reaction Status Date / Time honey Allergy Unknown Verified 09/09/24 14:59 latex Allergy Unknown Verified 09/09/24 14:59 risperidone [From Risperdal] Allergy Unknown Verified 09/09/24 14:59 whey Allergy Unknown Verified 09/09/24 14:59 Physical Exam Vitals: Vital Signs Temp Pulse Pulse Resp BP BP Pulse Ox 09/10/24 12:44 84 09/10/24 12:36 80 09/10/24 11:14 97.0 F L 84 24 135/89 99 09/10/24 09:44 82 09/10/24 09:34 78 96 09/10/24 07:47 96.9 F L 72 18 118/62 95 09/10/24 04:03 95 09/10/24 03:23 98.2 F 74 20 139/61 95 09/10/24 02:00 20 09/10/24 00:00 79 20 122/69 95 09/09/24 23:16 09/09/24 20:57 93 09/09/24 20:56 93 09/09/24 20:46 90 96 09/09/24 20:00 97.8 F 77 20 117/58 96 09/09/24 18:59 80 20 09/09/24 17:30 97.4 F L 80 20 131/66 96 09/09/24 17:00 83 25 H 130/70 95 09/09/24 16:05 87 22 122/68 95 09/09/24 15:42 86 09/09/24 15:37 94 L 09/09/24 15:34 87 09/09/24 14:41 09/09/24 14:17 90 25 H 96/68 97 FiO2 09/10/24 12:44 09/10/24 12:36 60 09/10/24 11:14 70 09/10/24 09:44 09/10/24 09:34 60 09/10/24 07:47 70 09/10/24 04:03 60 09/10/24 03:23 70 09/10/24 02:00 09/10/24 00:00 70 09/09/24 23:16 60 09/09/24 20:57 09/09/24 20:56 09/09/24 20:46 60 09/09/24 20:00 70 09/09/24 18:59 09/09/24 17:30 70 09/09/24 17:00 09/09/24 16:05 09/09/24 15:42 09/09/24 15:37 60 09/09/24 15:34 09/09/24 14:41 70 09/09/24 14:17 Intake and Output 09/09/24 09/10/24 09/10/24 22:59 06:59 14:59 Intake Total 100 Output Total 500 350 Balance -500 -250 Intake: Intake, IV Titration 100 Amount Piperacillin-Tazobactam 3 100 .375 gm In Sodium Chloride 0.9% 100 ml @ 200 mls/hr IVPB ONCE STA Rx#:[id number] Output: Urine 500 350 Other: Voiding Method External Catheter External Catheter External Catheter # Voids 1 Weight 136.7 kg 137 kg GENERAL EXAM: Alert, restless, uncooperative 64-year-old female, on Airvo high flow oxygen at 60 L and 60% FiO2, in no apparent distress. HEAD: Normocephalic. EYES: Normal reaction of pupils, equal size. NOSE: Clear with pink turbinates. THROAT: No erythema or exudates. NECK: No masses, no JVD. CHEST: No chest wall deformity. LUNGS: Equal air entry with bilateral scattered rhonchi. CVS: S1 and S2 normal with an audible murmur, regular rhythm. ABDOMEN: No hepatosplenomegaly, normal bowel sounds, no guarding or rigidity. SPINE: No scoliosis or deformity SKIN: No rashes CENTRAL NERVOUS SYSTEM: No focal deficits, tone is normal in all 4 extremities. EXTREMITIES: There is 1-2+ chronic peripheral edema. No clubbing, no cyanosis. Peripheral pulses are intact. Results - Laboratory Findings CBC and BMP: 09/10/24 06:34 09/10/24 06:34 PT/INR, D-dimer PT 11.4 sec (10.0-12.5) 09/09/24 12:48 INR 1.0 (<1.2) 09/09/24 12:48 Abnormal lab findings: Abnormal Labs 09/09/24 09/09/24 09/09/24 12:48 12:48 12:48 WBC 11.7 H RBC 3.68 L Hgb 10.7 L Hct MCHC 30.9 L RDW 16.0 H Neutrophils # 9.6 H Lymphocytes # APTT 30.9 H Carbon Dioxide 35 H BUN Glucose 162 H POC Glucose (mg/dL) Plasma Lactic Acid Chapo Calcium 8.1 L Total Protein 6.0 L Urine Appearance Urine Protein Urine Ketones Amorphous Sediment 09/09/24 09/09/24 09/10/24 12:48 19:59 01:19 WBC RBC Hgb Hct MCHC RDW Neutrophils # Lymphocytes # APTT Carbon Dioxide BUN Glucose POC Glucose (mg/dL) 192 H 190 H Plasma Lactic Acid Chapo 2.2 H* Calcium Total Protein Urine Appearance Urine Protein Urine Ketones Amorphous Sediment 09/10/24 09/10/24 09/10/24 06:02 06:34 06:34 WBC RBC 3.50 L Hgb 10.2 L Hct 33.4 L MCHC 30.6 L RDW 15.7 H Neutrophils # Lymphocytes # 0.6 L APTT Carbon Dioxide 39 H BUN 23 H Glucose 174 H POC Glucose (mg/dL) 174 H Plasma Lactic Acid [place] Calcium 8.3 L Total Protein Urine Appearance Urine Protein Urine Ketones Amorphous Sediment 09/10/24 09/10/24 09:15 11:27 WBC RBC Hgb Hct MCHC RDW Neutrophils # Lymphocytes # APTT Carbon Dioxide BUN Glucose POC Glucose (mg/dL) 185 H Plasma Lactic Acid Chapo Calcium Total Protein Urine Appearance Cloudy H Urine Protein Trace H Urine Ketones 1+ H Amorphous Sediment Few H - Diagnostic Findings Chest x-ray: image reviewed Assessment and Plan Assessment: Acute hypoxemic respiratory failure secondary to suspected healthcare acquired versus aspiration pneumonia. Viral screen negative. Normal left ventricular systolic function Acute exacerbation of chronic obstructive pulmonary disease secondary to above, oxygen dependent COPD History of chronic tobacco dependence History of schizophrenia Diabetes mellitus, type II History of seizures Chronic lower extremity edema Hypertension Hyperlipidemia long-term resident Plan: The patient is seen and evaluated Chest x-ray, echocardiogram, labs and medications reviewed Continue Zosyn Check a procalcitonin Continue bronchodilators, steroids Continue Airvo high flow oxygen Titrate the FiO2 as tolerated tiler to be at the bedside Psychiatry consult for agitation, restlessness We will continue to follow and make further recommendations based on her clinical status I have personally seen and examined the patient, performed the documentation and the assessment and plan as written. Number of minutes spent on the visit: 20 Dictation was produced using [employer] dictation software. Please excuse any grammatical, word or spelling errors.
--- NOTE | 2024-09-10 14:39 | P.CN ---
Psychiatric Consult - . Consult date: 09/10/24 Consult:: 09/10/24 14:30 IDENTIFYING DATA: This patient is a 84-year-old female with longstanding history of schizophrenia, living in a penitentiary REASON FOR REFERRAL: Psychiatry was consulted for agitation, history of schizophrenia HISTORY OF PRESENT ILLNESS: The patient presented to the hospital due to difficulty breathing. ED note revealed, "Patient is a 64-year-old female present to the emergency department from penitentiary for concerns for difficulty breathing. Patient is a poor historian and offers little information. Patient has history of COPD and CHF. Patient has had cough." Patient was started on Zosyn for pneumonia. Patient seen and evaluated in her room. She was A&Ox1 to self and a poor historian, often rambling. When asked if she hears voices and seeing things, patient stated yes and that she sees her children and hears to her voice. Talked to patient's nurse who stated patient at baseline is A&Ox1 and that she can become agitated even at the penitentiary if being bothered physically. Patient reportedly was swinging at [facility] and other staff members when assessing her and performing a physical examination. PAST PSYCHIATRIC HISTORY: Patient has a a history of schizophrenia. She is currently taking Clozaril 200 mg at bedtime, Depakote ER 500 mg twice daily and 250 mg at bedtime. Patient has previously trialed Risperdal, amantadine. Patient was last seen inpatient at this facility back in 2019. Patient reportedly follows with [facility]. Patient denies any history of suicide attempts in the past. PAST MEDICAL HISTORY: Diabetes, hypertension, lipidemia, COPD. ALLERGIES: as per EMR. CHEMICAL DEPENDENCY HISTORY: as per HPI. FAMILY PSYCHIATRIC/SUBSTANCE USE HISTORY: Unknown SOCIAL HISTORY: Patient currently living and penitentiary MENTAL STATUS EXAM: General Appearance: Patient appears to be stated age is alert however confused, uncooperative. Patient appears to have fair hygiene and grooming wearing hospital gown with poor eye contact. Behavior: Patient is calmly lying in bed without any agitated behavior. Speech: Patient's speech is nonsensical Mood/Affect: affect is constricted Suicidality/Homicidality: Patient denies having any suicidal or homicidal ideation intent or plan. Perceptions: Patient reports both auditory and visual hallucinations Though content/process: There is illogical thought content Memory and concentration: AOX1, concentration poor Judgment and insight: Poor IMPRESSIONS: Schizophrenia Major neurocognitive disorder PLAN: -At this time patient DOES NOT meet criteria for inpatient psychiatric admission. -Would recommend the following medication changes/additions: Continue Clozaril 200 mg at bedtime, Depakote ER 500 mg twice daily and 250 mg at bedtime, start Haldol 5 mg p.o./IM as needed for acute safety concerns -Communicated plan to patient's nurse -Psychiatry will sign off at this time -Please contact with any questions. 09/10/24 14:34
[2024-09-10] MEDS ORDERED: NA PHOS,M-B/NA PHOS,DI-BA 133 ML ENEMA RECTAL PRN (14:47)
[2024-09-10] MEDS ORDERED: MAGNESIUM HYDROXIDE 2,400 MG/30 ML CUP PO PRN (14:47)
[2024-09-10] MEDS ORDERED: LACTULOSE 20 GM/30 ML CUP PO PRN (14:47)
[2024-09-10] MEDS: THIAMINE 100 MG TAB PO SCH (15:31)
[2024-09-10] MEDS: MULTIVITAMINS, THERA 1 EACH TAB PO SCH (15:31)
[2024-09-10] MEDS: FOLIC ACID 1 MG TAB PO SCH (15:31)
[2024-09-10 16:26] LABS: Glucose,Whole Blood 157 mg/dL (70-110)
[2024-09-10] MEDS: INSULIN ASPART (NovoLOG) 100 UNIT/ML VIAL SQ SCH (17:10)
[2024-09-10 17:11] LABS: Appearance,Urine Clear (Clear); Bilirubin,Urine Negative (Negative); Blood,Urine Negative (Negative); Color,Urine Yellow; Glucose,Urine (UA) Negative (Negative); Ketones,Urine 1+ (Negative); Leukocyte Esterase,Urine Negative (Negative); Nitrite,Urine Negative (Negative); Protein,Urine Trace (Negative); Specific Gravity,Urine 1.029 (1.001-1.035); Urobilinogen,Urine <2.0 mg/dL (<2.0)
--- NOTE | 2024-09-10 17:57 | CT ---
EXAMINATION TYPE: CT brain wo con DATE OF EXAM: 09/10/2024 5:51 PM COMPARISON: None. CLINICAL INDICATION: Female, 64 years old with history of ams, altered, ams TECHNIQUE: CT of the brain is performed utilizing 3 mm thick sections through the posterior fossa and 3 mm thick sections through the remaining calvarium. Study is performed within 24 hours of arrival to the hospital. Contrast used: mL of , (none if empty) CT DLP: 1213.4 mGycm, Automated exposure control for dose reduction was used. FINDINGS: No abnormal hyperdensity is present to suggest an acute intracranial hemorrhage. No mass lesion is evident. No acute infarcts are evident. Mild periventricular white matter hypodensity is present, likely on th e basis of chronic white matter ischemic changes. Ventricles and sulci are appropriate for the patient age. Paranasal sinuses and mastoid air cells within the cenpl-bo-noug are clear. IMPRESSION: 1. No acute intracranial process. Follow up MRI can be performed as clinically indicated. 2. Mild periventricular white matter ischemic-type changes. [facility], , 09/10/2024 5:54 PM
[2024-09-10 19:52] LABS: Glucose,Whole Blood 148 mg/dL (70-110)
[2024-09-10] MEDS: SYMBICORT 160-4.5 MCG INHALER INHALATION SCH (20:17)
[2024-09-10] MEDS: QUEtiapine 25 MG TAB PO SCH (20:44)
[2024-09-10] MEDS: HALOPERIDOL LACTATE 5 MG/ML 1 ML VIAL IM PRN (23:57)
--- NOTE | 2024-09-11 05:04 | P.CONS ---
History of Present Illness - Reason for Consult Consult date: 09/10/24 Pneumonia, UTI? Requesting physician: Shonda Junior - Chief Complaint Shortness of breath x few days - History of Present Illness Patient is a 64-year-old female with a past medical history significant for diabetes mellitus hypertension hyperlipidemia COPD in this patient who is a longterm resident patient has been brought into the hospital from the local longterm for evaluation of increasing shortness of breath and this patient symptom apparently was getting worse for the last few days patient denies having any fever or any chills and no fever have been recorded during this hospital stay no URI symptoms no chest pain patient did have a cough moderate intensity but no significant sputum production denies any nausea no vomiting no abdominal pain no diarrhea patient did have a significantly cloudy urine as reported by the nursing staff but denies significant urinary syndrome and no diarrhea on presentation to the hospital the patient did have a low-grade fever of 99.1 degrees following hide patient was nontachycardic or hypotensive she was hypoxic with O2 sats in the low 90s and is currently on high flow nasal current oxygen patient did have a white count of 11.7 creatinine 0.63 electrolytes are normal liver enzymes are normal influenza RSV COVID testing was negative UA was reported cloudy but no evidence of any pyuria blood cultures obtained currently pending patient did have a chest x-ray with bibasilar airspace opacity with cardiomegaly and small effusion with a question of seizure versus underlying infectious process patient was started on Solu-Medrol and Zosyn infectious disease was consulted today regarding pneumonia and question of UTI Review of Systems Positive point and negatives has been mentioned in the HPI, complete review of systems was performed and all other systems are negative Past Medical History Past Medical History: COPD, Diabetes Mellitus, Hyperlipidemia, Hypertension Additional Past Medical History / Comment(s): NIDDM type II, FALLS, chronic bilateral lower extremity edema, constipation. Per [place] patient takes Xaralto for DVT prophylaxis, no HX DVT/PE, Patietn also wears 2-4LNC, and has body tremors History of Any Multi-Drug Resistant Organisms: None Reported Past Surgical History: Section Additional Past Surgical History / Comment(s): colonoscopy/benign polypectomy Past Anesthesia/Blood Transfusion Reactions: No Reported Reaction Past Psychological History: Schizophrenia Additional Psychological History / Comment(s): Pt resides at [facility]. There are other residence and staff + with mari. She uses no assistive device. She has falls. Smoking Status: Former smoker Past Alcohol Use History: None Reported Additional Past Alcohol Use History / Comment(s): Pt started smoking in 1974 Past Drug Use History: None Reported - Past Family History family Family Medical History: Unable to Obtain Medications and Allergies Home Medications Medication Instructions Recorded Confirmed Type Ergocalciferol [Vitamin D2 50,000 unit PO SA@1700 09/02/19 09/09/24 History (DRISDOL)] Linagliptin [Tradjenta] 5 mg PO DAILY@0800 04/20/20 09/09/24 History Ipratropium-Albuterol Nebulize 3 ml INHALATION RT-QID@00,,,04/12/21 09/09/24 History [Duoneb 0.5 mg-3 mg/3 ml Soln] Atorvastatin Calcium [Lipitor] 20 mg PO HS@2100 11/05/21 09/09/24 History Budesonide-Formot 160-4.5 Mcg 2 puff INHALATION RT-BID@,17 11/05/21 09/09/24 History [Symbicort 160-4.5 Mcg Inhaler] metFORMIN HCL [Glucophage] 1,000 mg PO BID@0800,1700 11/05/21 09/09/24 History Acetaminophen [Tylenol] 500 mg PO Q6H PRN #0 11/16/21 09/09/24 Rx Ascorbic Acid [Vitamin C] 500 mg PO BID@0800,1700 12/07/21 09/09/24 History Aspirin 81 mg PO DAILY@0800 12/07/21 09/09/24 History Famotidine [Pepcid] 20 mg PO DAILY@0800 12/07/21 09/09/24 History Rivaroxaban [Xarelto] 10 mg PO DAILY@0800 12/07/21 09/09/24 History Zinc Sulfate [Orazinc] 220 mg PO DAILY@1700 12/07/21 09/09/24 History Lactulose [Cephulac] 20 gm PO DAILY PRN ml 12/11/21 09/09/24 Rx Furosemide [Lasix] 20 mg PO BID@0800,1700 10/01/23 09/09/24 History Magnesium Hydroxide [Milk of 7,200 mg PO DAILY PRN 10/01/23 09/09/24 History Magnesia Concentrate] Na Phos,M-B/Na Phos,Di-Ba [Fleet 133 ml RECTAL DAILY PRN 10/01/23 09/09/24 History Adult] bisacodyL [Dulcolax] 10 mg RECTAL DAILY PRN 10/01/23 09/09/24 History cloZAPine [Clozaril] 200 mg PO HS@2100 10/01/23 09/09/24 History predniSONE 10 mg PO DAILY@0800 10/01/23 09/09/24 History Divalproex ER [Depakote ER] 250 mg PO HS 09/09/24 09/09/24 History Divalproex ER [Depakote ER] 500 mg PO BID@0800,2100 09/09/24 09/09/24 History Insulin Degludec [Tresiba 10 units SQ DAILY@0800 09/09/24 09/09/24 History Flextouch U-100 Pen] Insulin Lispro [Admelog] 7 units SQ BID@0800,1700 09/09/24 09/09/24 History Insulin Lispro [Admelog] 10 units SQ DAILY@1200 09/09/24 09/09/24 History Insulin Lispro [Admelog] See Protocol SQ AC-TID@07,11,1630 09/09/24 09/09/24 History Loperamide [Imodium] 2 - 4 mg PO TID PRN MDD 8mg 09/09/24 09/09/24 History Allergies Allergy/AdvReac Type Severity Reaction Status Date / Time honey Allergy Unknown Verified 09/09/24 14:59 latex Allergy Unknown Verified 09/09/24 14:59 risperidone [From Risperdal] Allergy Unknown Verified 09/09/24 14:59 whey Allergy Unknown Verified 09/09/24 14:59 Physical Exam Vitals: Vital Signs Temp Pulse Pulse Resp BP Pulse Ox FiO2 09/10/24 19:58 98.0 F 85 17 113/69 95 70 09/10/24 16:31 80 09/10/24 16:21 76 99 50 09/10/24 15:52 98.9 F 82 18 119/36 97 70 09/10/24 12:44 84 09/10/24 12:36 80 60 09/10/24 11:14 97.0 F L 84 24 135/89 99 70 09/10/24 09:44 82 09/10/24 09:34 78 96 60 09/10/24 07:47 96.9 F L 72 18 118/62 95 70 09/10/24 04:03 95 60 09/10/24 03:23 98.2 F 74 20 139/61 95 70 09/10/24 02:00 20 09/10/24 00:00 79 20 122/69 95 70 09/09/24 23:16 60 Intake and Output 09/10/24 09/10/24 09/10/24 06:59 14:59 22:59 Intake Total 280 280 Output Total 500 350 450 Balance -500 -70 -170 Intake: Intake, IV Titration 100 100 Amount Piperacillin-Tazobactam 3 100 .375 gm In Sodium Chloride 0.9% 100 ml @ 200 mls/hr IVPB ONCE STA Rx#:[id number] Piperacillin-Tazobactam 3 100 .375 gm In Sodium Chloride 0.9% 100 ml @ 25 mls/hr IVPB Q8HR [facility] Rx# :[id number] Oral 180 180 Output: Urine 500 350 450 Other: Voiding Method External Catheter External Catheter External Catheter # Voids 1 1 Weight 137 kg GENERAL DESCRIPTION: Middle-aged female lying in bed, no distress. No tachypnea or accessory muscle of respiration use. HEENT: Shows Pallor , no scleral icterus. Oral mucous membrane is dry. NECK: Trachea central, no thyromegaly. LUNGS: Unlabored breathing. Decreased breath sound at the base HEART: S1, S2, regular rate and rhythm. No loud murmur ABDOMEN: Soft, no tenderness , guarding or rigidity EXTREMITIES: No edema of feet. SKIN: No rash, no masses palpable. NEUROLOGICAL: The patient is awake, alert, mood and affect normal. Results CBC & Chem 7: 09/10/24 06:34 09/10/24 06:34 Labs: Abnormal Lab Results - Last 24 Hours (Table) 09/10/24 09/10/24 09/10/24 Range/Units 01:19 06:02 06:34 RBC 3.50 L (3.80-5.40) m/uL Hgb 10.2 L (11.4-16.0) gm/dL Hct 33.4 L (34.0-46.0) % MCHC 30.6 L (31.0-37.0) g/dL RDW 15.7 H (11.5-15.5) % Lymphocytes # 0.6 L (1.0-4.8) k/uL Carbon Dioxide (22-30) mmol/L BUN (7-17) mg/dL Glucose (74-99) mg/dL POC Glucose (mg/dL) 190 H 174 H (70-110) mg/dL Calcium (8.4-10.2) mg/dL Urine Appearance (Clear) Urine Protein (Negative) Urine Ketones (Negative) Amorphous Sediment (None) /hpf 09/10/24 09/10/24 09/10/24 Range/Units 06:34 09:15 11:27 RBC (3.80-5.40) m/uL Hgb (11.4-16.0) gm/dL Hct (34.0-46.0) % MCHC (31.0-37.0) g/dL RDW (11.5-15.5) % Lymphocytes # (1.0-4.8) k/uL Carbon Dioxide 39 H (22-30) mmol/L BUN 23 H (7-17) mg/dL Glucose 174 H (74-99) mg/dL POC Glucose (mg/dL) 185 H (70-110) mg/dL Calcium 8.3 L (8.4-10.2) mg/dL Urine Appearance Cloudy H (Clear) Urine Protein Trace H (Negative) Urine Ketones 1+ H (Negative) Amorphous Sediment Few H (None) /hpf 09/10/24 09/10/24 09/10/24 Range/Units 16:24 16:47 19:51 RBC (3.80-5.40) m/uL Hgb (11.4-16.0) gm/dL Hct (34.0-46.0) % MCHC (31.0-37.0) g/dL RDW (11.5-15.5) % Lymphocytes # (1.0-4.8) k/uL Carbon Dioxide (22-30) mmol/L BUN (7-17) mg/dL Glucose (74-99) mg/dL POC Glucose (mg/dL) 157 H 148 H (70-110) mg/dL Calcium (8.4-10.2) mg/dL Urine Appearance (Clear) Urine Protein Trace H (Negative) Urine Ketones 1+ H (Negative) Amorphous Sediment (None) /hpf Assessment and Plan (1) Pneumonia Current Visit: No Status: Acute Code(s): J18.9 - PNEUMONIA, UNSPECIFIED ORGANISM SNOMED Code(s): 449713991 Plan: 1patient presenting to the hospital for evaluation of increasing shortness of breath which is likely multifactorial with a question of possible fluid overload versus pneumonia less likely bilateral excluded patient not running any fever did have mildly elevated white count also noted to have significantly cloudy urine however UA did not show any evidence of pyuria 2-we will try to obtain sputum for Gram stain and culture and await procalcitonin level 3-for now patient is covered with Zosyn to continue while awaiting further workup to be completed We will follow on clinical condition and cultures to further adjust medication if needed Thank you for this consultation we will follow the patient along with you Dictation was produced using [employer] dictation software. please excuse any grammatical, word or spelling errors. Time with Patient: Greater than 30
[2024-09-11 06:07] LABS: Glucose,Whole Blood 219 mg/dL (70-110)
--- NOTE | 2024-09-11 06:50 | PN ---
PROGRESS NOTE DATE OF SERVICE: 09/10/2024 SUBJECTIVE: This is a 64-year-old woman, who was admitted with bilateral pneumonia, possibly gram- negative, had COPD also. The patient is being closely monitored. The patient is on broad-spectrum antibiotics. Multiple consultants are following the patient closely. PAST MEDICAL HISTORY: Reviewed. REVIEW OF SYSTEMS: A 14-point review of systems is negative except as mentioned earlier. CURRENT MEDICATIONS: Reviewed. PHYSICAL EXAMINATION: VITAL SIGNS: Pulse is 84, blood pressure is 135/89, respirations 24. HEENT: Conjunctivae normal. NECK: No JVD. CARDIOVASCULAR: S1, S2. RESPIRATIONS: Breath sounds diminished at the bases. Bilateral scattered rhonchi and crackles. ABDOMEN: Soft. NERVOUS SYSTEM: Nonfocal. LABORATORY DATA: Reviewed. ASSESSMENT: 1. Bilateral pneumonia, possibly gram-negative versus healthcare pneumonia versus aspiration pneumonia. 2. Chronic obstructive pulmonary disease acute exacerbation. 3. Diabetes mellitus, type 2. 4. Hypertension. 5. Hyperlipidemia. 6. Multiple complex medical issues. RECOMMENDATIONS AND DISCUSSION: Recommend to continue current medications and continue symptomatic treatment. Otherwise, continue with empiric antibiotics. Follow the cultures. Continue rest of medication, bronchodilators. Guarded prognosis. Empiric steroids. Further recommendations to follow. See orders for further details. MMODL / IJN: [id number] /
--- NOTE | 2024-09-11 08:10 | XR ---
EXAMINATION TYPE: XR chest 1V portable DATE OF EXAM: 09/11/2024 5:12 AM COMPARISON: None. CLINICAL INDICATION: Female, 64 years old with history of pneumonia, TECHNIQUE: XR chest 1V portable view(s) obtained. FINDINGS: The heart size is normal. The pulmonary vasculature is normal. Right lower lobe and perihilar infiltrate is present. Mild trace of the left lung. Some streak atelec tasis may be in the posterior medial left lung base. Continued follow-up is recommended IMPRESSION: 1. Worsening right lower lobe infiltrate. Correlate for atelectasis and pneumonia. 2. Mild infiltrates in the left lung base. 3. Fullness of the right hilum. Underlying mass is not excluded and follow-up to clearing is recommen ded [facility], , 09/11/2024 8:08 AM
[2024-09-11 08:13] LABS: Basophils % (A) 0 %; Eosinophils % (A) 0 %; Hypochromasia Marked; Lymphocytes # (A) 0.9 k/uL (1.0-4.8); Lymphocytes % (A) 13 %; MCHC 30.3 g/dL (31.0-37.0); MCV 95.9 fL (80.0-100.0); Mean Platelet Volume 7.9; Monocytes # (A) 0.2 k/uL (0-1.0); Monocytes % (A) 3 %; Neutrophils # (A) 5.9 k/uL (1.3-7.7); Neutrophils % (A) 84 %; Platelet Count 239 k/uL (150-450); RBC 3.45 m/uL (3.80-5.40); RDW 15.4 % (11.5-15.5); WBC 7.1 k/uL (3.8-10.6)
[2024-09-11 08:26] LABS: African American GFR (CKD) >90 (>60 ml/min/1.73 sqM); Blood Urea Nitrogen 30 mg/dL (7-17); Calcium 8.6 mg/dL (8.4-10.2); Chloride 98 mmol/L (98-107); Glucose 199 mg/dL (74-99); Non-African American GFR(CKD) >90 (>60 ml/min/1.73 sqM); Potassium 4.6 mmol/L (3.5-5.1); Sodium 140 mmol/L (137-145)
[2024-09-11 08:57] LABS: Anion Gap 7 mmol/L; Carbon Dioxide 35 mmol/L (22-30)
[2024-09-11] MEDS: INSULIN DETEMIR (LEVEMIR) 100 UNIT/ML SYR SQ SCH (09:40)
[2024-09-11] MEDS: RIVAROXABAN 10 MG TAB PO SCH (09:40)
[2024-09-11] MEDS: ERGOCALCIFEROL 1,250 MCG (50,000 IU) CAPSULE PO SCH (09:40)
[2024-09-11 11:44] LABS: Glucose,Whole Blood 194 mg/dL (70-110)
[2024-09-11] MEDS: INSULIN ASPART (NovoLOG) 100 UNIT/ML VIAL SQ SCH (12:05)
--- NOTE | 2024-09-11 12:22 | P.PN ---
Subjective HISTORY OF PRESENT ILLNESS: The patient is a 64-year-old female, resident of assisted who was transferred to the emergency room with change in mental status, worsening dyspnea. Apparently she has a history of confusion, severe COPD on presentation she had elevation of her lactic acid. Cardiology consultation was requested for possible CHF. Her NT proBNP is normal. She had an echocardiogram performed in 2019 that showed a preserved systolic function. No other history could be obtained from the patient. She is somnolent, not responding to verbal stimulation. Moving all her extremities. According to the record she has a history of chronic hypoxemia on home oxygen. She has a history of diabetes, hyperlipidemia and hypertension. She has been in sinus mechanism since admission. According to the record she has chronic lower extremities edema. She is on Xarelto according to them medication list but at 10 mg daily, indications for that are unclear on the records. Her duplex scan of the lower extremities in September 2023 showed no evidence of DVT. No other history could be obtained. Medications: Albuterol, aspirin, Lipitor 20 mg daily, Lasix 20 mg twice a day, insulin, Xarelto 10 mg daily, Tradjenta, Depakote 09/11/2024 Patient examined this morning at the bedside. Patient remains somewhat lethargic. She remains on Airvo this morning. She reports shortness of breath. Chest x-ray this morning reveals worsening right lower lobe infiltrate and mild infiltrates in the left lung base. Echocardiogram was performed revealing ejection fraction 55 to 60%. Full echocardiogram was not able to be performed as patient began to hit panpan. PHYSICAL EXAM: VITAL SIGNS: Reviewed. GENERAL: Well-developed in no acute distress. NECK: Supple. No JVD or thyromegaly LUNGS: Respirations even and unlabored. Lungs essentially clear to auscultation bilaterally. HEART: Regular rate and rhythm. S1 and S2 heard. Systolic murmur noted. EXTREMITIES: Normal range of motion. No clubbing or cyanosis. Peripheral pulses intact. 1+ bilateral lower extremity edema ASSESSMENT: Altered mental status Pneumonia Acute hypoxic respiratory failure Oxygen dependent COPD Congestive heart failure, ruled out Hypertension Hyperlipidemia Diabetes Morbid obesity: BMI 44.6 History of seizures History of schizophrenia PLAN: 2D echo obtained and reviewed Continue antibiotics for pneumonia. Pulmonary following. Patient without evidence of congestive heart failure No further inpatient recommendations from a cardiac standpoint. We will sign off. Please reconsult if needed. Nurse practitioner note has been reviewed by physician. Signing provider agrees with the documented findings, assessment, and plan of care documented by SOAP CHIPPER as a scribe. Objective - Vital Signs Vital signs: Vital Signs Temp 99.5 F 09/11/24 11:52 Pulse 82 09/11/24 12:11 Resp 18 09/11/24 11:52 BP 153/82 09/11/24 11:52 Pulse Ox 94 L 09/11/24 11:52 FiO2 70 09/11/24 12:03 Intake & Output 09/10/24 09/11/24 09/11/24 18:59 06:59 18:59 Intake Total 560 110 Output Total 800 350 300 Balance -240 -350 -190 Intake: IV 10 Invasive Line 1 10 Intake, IV Titration 200 100 Amount Piperacillin-Tazobactam 3 100 .375 gm In Sodium Chloride 0.9% 100 ml @ 200 mls/hr IVPB ONCE STA Rx#:[id number] Piperacillin-Tazobactam 3 100 100 .375 gm In Sodium Chloride 0.9% 100 ml @ 25 mls/hr IVPB Q8HR [facility] Rx# :[id number] Oral 360 Output: Urine 800 350 300 Other: Voiding Method External Catheter External Catheter External Catheter # Voids 1 1 - Labs CBC & Chem 7: 09/11/24 07:32 09/11/24 07:32 Labs: Abnormal Lab Results - Last 24 Hours (Table) 09/10/24 09/10/24 09/10/24 Range/Units 16:24 16:47 19:51 RBC (3.80-5.40) m/uL Hgb (11.4-16.0) gm/dL Hct (34.0-46.0) % MCHC (31.0-37.0) g/dL Lymphocytes # (1.0-4.8) k/uL Carbon Dioxide (22-30) mmol/L BUN (7-17) mg/dL Glucose (74-99) mg/dL POC Glucose (mg/dL) 157 H 148 H (70-110) mg/dL Urine Protein Trace H (Negative) Urine Ketones 1+ H (Negative) 09/11/24 09/11/24 09/11/24 Range/Units 06:06 07:32 07:32 RBC 3.45 L (3.80-5.40) m/uL Hgb 10.0 L (11.4-16.0) gm/dL Hct 33.0 L (34.0-46.0) % MCHC 30.3 L (31.0-37.0) g/dL Lymphocytes # 0.9 L (1.0-4.8) k/uL Carbon Dioxide 35 H (22-30) mmol/L BUN 30 H (7-17) mg/dL Glucose 199 H (74-99) mg/dL POC Glucose (mg/dL) 219 H (70-110) mg/dL Urine Protein (Negative) Urine Ketones (Negative) 09/11/24 Range/Units 11:42 RBC (3.80-5.40) m/uL Hgb (11.4-16.0) gm/dL Hct (34.0-46.0) % MCHC (31.0-37.0) g/dL Lymphocytes # (1.0-4.8) k/uL Carbon Dioxide (22-30) mmol/L BUN (7-17) mg/dL Glucose (74-99) mg/dL POC Glucose (mg/dL) 194 H (70-110) mg/dL Urine Protein (Negative) Urine Ketones (Negative) Microbiology - Last 24 Hours (Table) 09/09/24 13:05 Blood Culture - Preliminary Blood
--- NOTE | 2024-09-11 13:30 | P.PN ---
Subjective Progress Note Date: 09/11/24 This is a 64-year-old female patient with a history of schizophrenia and [facility] in a local [facility]. She also has a history of COPD, diabetes mellitus, hyperlipidemia, hypertension, home oxygen, chronic bilateral lower extremity edema, chronic tobacco dependence. She was brought into the emergency room yesterday with complaints of shortness of breath. Chest x-ray reveals bibasilar patchy airspace opacities with cardiomegaly and small left pleural effusion. White count 6.2. Hemoglobin 10.2. Platelets 232. Sodium 139. Potassium 4.5. Bicarb 39. BUN 23. Creatinine 0.56. Glucose 174. 60%. She is seen today in consultation on the selective care unit. She is currently sitting up in bed. She has pulled off her Airvo high flow oxygen, pulled off her electrodes and gown. She is placed back on the Airvo high flow oxygen at 60 L and 60% FiO2. O2 saturations in the 90s. Is on DuoNeb inhalations, IV Solu-Medrol, oral diuretics. Antibiotics in the form of Zosyn. The patient is seen today September 11, 2024 in follow-up on the regular medical floor. She is currently resting more comfortably in bed. Maintaining O2 saturations in the 90s on Airvo high flow oxygen at 60 L and 50% FiO2 with O2 saturations in the 90s. Axillary temperature 99.5. Hemodynamically stable. banbury operator at the bedside. Worsening right lower lobe infiltrate. Mild infiltrate to the left lung base. Fullness of the right hilum. White count 7.1. Hemoglobin 10.0. Platelets 239. Sodium 140. Potassium 4.6. Bicarb 35. BUN 30. Creatinine 0.57. Glucose 199. She is continued on Zosyn. Remains on IV diuretics. Continued on Symbicort and DuoNeb inhalations along with Solu- Medrol. Anticoagulated with Xarelto. Objective - Vital Signs Vital signs: Vital Signs Temp 99.5 F 09/11/24 11:52 Pulse 82 09/11/24 12:11 Resp 18 09/11/24 11:52 BP 153/82 09/11/24 11:52 Pulse Ox 94 L 09/11/24 11:52 FiO2 70 09/11/24 12:03 Intake & Output 09/10/24 09/11/24 09/11/24 18:59 06:59 18:59 Intake Total 560 110 Output Total 800 350 300 Balance -240 -350 -190 Intake: IV 10 Invasive Line 1 10 Intake, IV Titration 200 100 Amount Piperacillin-Tazobactam 3 100 .375 gm In Sodium Chloride 0.9% 100 ml @ 200 mls/hr IVPB [facility] Rx#:[id number] Piperacillin-Tazobactam 3 100 100 .375 gm In Sodium Chloride 0.9% 100 ml @ 25 mls/hr IVPB Q8HR [facility] Rx# :[id number] Oral 360 Output: Urine 800 350 300 Other: Voiding Method External Catheter External Catheter External Catheter # Voids 1 1 - Exam GENERAL EXAM: Alert, 64-year-old female, on Airvo high flow oxygen at 60 L and 50% FiO2, in no apparent distress. HEAD: Normocephalic. EYES: Normal reaction of pupils, equal size. NOSE: Clear with pink turbinates. THROAT: No erythema or exudates. NECK: No masses, no JVD. CHEST: No chest wall deformity. LUNGS: Equal air entry with bilateral scattered rhonchi. CVS: S1 and S2 normal with an audible murmur, regular rhythm. ABDOMEN: No hepatosplenomegaly, normal bowel sounds, no guarding or rigidity. SPINE: No scoliosis or deformity SKIN: No rashes CENTRAL NERVOUS SYSTEM: No focal deficits, tone is normal in all 4 extremities. EXTREMITIES: There is 1-2+ chronic peripheral edema. No clubbing, no cyanosis. Peripheral pulses are intact. - Labs CBC & Chem 7: 09/11/24 07:32 09/11/24 07:32 Labs: Abnormal Lab Results - Last 24 Hours (Table) 09/10/24 09/10/24 09/10/24 Range/Units 16:24 16:47 19:51 RBC (3.80-5.40) m/uL Hgb (11.4-16.0) gm/dL Hct (34.0-46.0) % MCHC (31.0-37.0) g/dL Lymphocytes # (1.0-4.8) k/uL Carbon Dioxide (22-30) mmol/L BUN (7-17) mg/dL Glucose (74-99) mg/dL POC Glucose (mg/dL) 157 H 148 H (70-110) mg/dL Urine Protein Trace H (Negative) Urine Ketones 1+ H (Negative) 09/11/24 09/11/24 09/11/24 Range/Units 06:06 07:32 07:32 RBC 3.45 L (3.80-5.40) m/uL Hgb 10.0 L (11.4-16.0) gm/dL Hct 33.0 L (34.0-46.0) % MCHC 30.3 L (31.0-37.0) g/dL Lymphocytes # 0.9 L (1.0-4.8) k/uL Carbon Dioxide 35 H (22-30) mmol/L BUN 30 H (7-17) mg/dL Glucose 199 H (74-99) mg/dL POC Glucose (mg/dL) 219 H (70-110) mg/dL Urine Protein (Negative) Urine Ketones (Negative) 09/11/24 Range/Units 11:42 RBC (3.80-5.40) m/uL Hgb (11.4-16.0) gm/dL Hct (34.0-46.0) % MCHC (31.0-37.0) g/dL Lymphocytes # (1.0-4.8) k/uL Carbon Dioxide (22-30) mmol/L BUN (7-17) mg/dL Glucose (74-99) mg/dL POC Glucose (mg/dL) 194 H (70-110) mg/dL Urine Protein (Negative) Urine Ketones (Negative) Microbiology - Last 24 Hours (Table) 09/09/24 13:05 Blood Culture - Preliminary Blood Assessment and Plan Assessment: Acute hypoxemic respiratory failure secondary to suspected healthcare acquired versus aspiration pneumonia versus diastolic congestive heart failure. Viral screen negative. Procalcitonin negative. Normal left ventricular systolic function Acute exacerbation of chronic obstructive pulmonary disease secondary to above, oxygen dependent COPD History of chronic tobacco dependence History of schizophrenia Diabetes mellitus, type II History of seizures Chronic lower extremity edema Hypertension Hyperlipidemia half-way resident Plan: The patient is seen and evaluated Chest x-ray, labs and medications reviewed Continue diuretics Continue bronchodilators, steroids Continue Airvo high flow oxygen Titrate the FiO2 as tolerated banbury operator at the bedside We will continue to follow I have personally seen and examined the patient, performed the documentation and the assessment and plan as written. Number of minutes spent on the visit: 10 Dictation was produced using [employer] dictation software. Please excuse any grammatical, word or spelling errors.
[2024-09-11 16:45] LABS: Glucose,Whole Blood 162 mg/dL (70-110)
[2024-09-11] MEDS: haloperidoL 5 MG TAB PO PRN (17:46)
[2024-09-11 20:35] LABS: Glucose,Whole Blood 171 mg/dL (70-110)
[2024-09-12 06:14] LABS: Glucose,Whole Blood 218 mg/dL (70-110)
[2024-09-12 07:38] LABS: Basophils % (A) 0 %; Eosinophils % (A) 0 %; HCT 34.3 % (34.0-46.0); HGB 10.5 gm/dL (11.4-16.0); Hypochromasia Marked; Lymphocytes # (A) 0.8 k/uL (1.0-4.8); Lymphocytes % (A) 13 %; MCHC 30.7 g/dL (31.0-37.0); MCV 94.6 fL (80.0-100.0); Mean Platelet Volume 7.9; Monocytes # (A) 0.2 k/uL (0-1.0); Monocytes % (A) 4 %; Neutrophils % (A) 82 %; Platelet Count 262 k/uL (150-450); RBC 3.62 m/uL (3.80-5.40); RDW 15.4 % (11.5-15.5); WBC 6.1 k/uL (3.8-10.6)
[2024-09-12 07:58] LABS: African American GFR (CKD) >90 (>60 ml/min/1.73 sqM); Anion Gap 3 mmol/L; Blood Urea Nitrogen 38 mg/dL (7-17); Calcium 8.8 mg/dL (8.4-10.2); Carbon Dioxide 40 mmol/L (22-30); Chloride 97 mmol/L (98-107); Glucose 202 mg/dL (74-99); Non-African American GFR(CKD) >90 (>60 ml/min/1.73 sqM); Potassium 4.6 mmol/L (3.5-5.1); Sodium 140 mmol/L (137-145)
--- NOTE | 2024-09-12 09:45 | PN ---
PROGRESS NOTE DATE OF SERVICE: 09/11/2024 SUBJECTIVE: This is a 64-year-old woman, who was admitted with bilateral pneumonia, had a combination of COPD acute exacerbation and closely monitored at this time. The repeat chest x-ray which I reviewed showed multiple lesions, right more than the left at this time. Multiple consultants are following the patient closely. Cultures are negative. PAST MEDICAL HISTORY: Reviewed. REVIEW OF SYSTEMS: A 14-point review is negative except as mentioned earlier. CURRENT MEDICATIONS: Reviewed. PHYSICAL EXAMINATION: VITAL SIGNS: Pulse is 65, blood pressure 150/82, respirations 18. HEENT: Conjunctivae normal. NECK: No JVD. CARDIOVASCULAR: S1, S2. RESPIRATIONS: Breath sounds diminished at the bases. A few scattered rhonchi and crackles. ABDOMEN: Soft. NERVOUS SYSTEM: Nonfocal. LABORATORY DATA: Noted. ASSESSMENT: 1. Acute bilateral pneumonia possibly gram-negative versus healthcare associated pneumonia versus aspiration pneumonia. 2. Chronic obstructive pulmonary disease acute exacerbation. 3. Diabetes mellitus, type 2. 4. Hypertension. 5. Hyperlipidemia. 6. Multiple complex medical issues. RECOMMENDATIONS AND DISCUSSION: Recommend to continue current management and continue symptomatic treatment. Follow the cultures. Cultures are negative so far. Currently, the patient is on intensive bronchodilators and continue with IV steroids. Otherwise, the patient is on IV Zosyn at this time. Continue to monitor. Guarded prognosis. Repeat labs will be ordered. Further recommendations to follow. MMODL / IJN: [id number] /
[2024-09-12 11:29] LABS: Glucose,Whole Blood 207 mg/dL (70-110)
--- NOTE | 2024-09-12 12:03 | P.PN ---
Subjective Progress Note Date: 09/12/24 This is a 64-year-old female patient with a history of schizophrenia and resides in a local [facility]. She also has a history of COPD, diabetes mellitus, hyperlipidemia, hypertension, home oxygen, chronic bilateral lower extremity edema, chronic tobacco dependence. She was brought into the emergency room yesterday with complaints of shortness of breath. Chest x-ray reveals bibasilar patchy airspace opacities with cardiomegaly and small left pleural effusion. White count 6.2. Hemoglobin 10.2. Platelets 232. Sodium 139. Potassium 4.5. Bicarb 39. BUN 23. Creatinine 0.56. Glucose 174. 60%. She is seen today in consultation on the selective care unit. She is currently sitting up in bed. She has pulled off her Airvo high flow oxygen, pulled off her electrodes and gown. She is placed back on the Airvo high flow oxygen at 60 L and 60% FiO2. O2 saturations in the 90s. Is on DuoNeb inhalations, IV Solu-Medrol, oral diuretics. Antibiotics in the form of Zosyn. The patient is seen today September 11, 2024 in follow-up on the regular medical floor. She is currently resting more comfortably in bed. Maintaining O2 saturations in the 90s on Airvo high flow oxygen at 60 L and 50% FiO2 with O2 saturations in the 90s. Axillary temperature 99.5. Hemodynamically stable. transit specialist at the bedside. Worsening right lower lobe infiltrate. Mild infiltrate to the left lung base. Fullness of the right hilum. White count 7.1. Hemoglobin 10.0. Platelets 239. Sodium 140. Potassium 4.6. Bicarb 35. BUN 30. Creatinine 0.57. Glucose 199. She is continued on Zosyn. Remains on IV diuretics. Continued on Symbicort and DuoNeb inhalations along with Solu- Medrol. Anticoagulated with Xarelto. The patient is seen today September 12, 2024 in follow-up on the regular medical floor. She is currently sitting up in bed. Awake and alert in no acute distress. She remains on Airvo high flow oxygen at 60 L and 50% FiO2. She is a bit more calm and cooperative today. transit specialist at the bedside. She is continued on Zosyn. Remains on Symbicort, DuoNeb inhalations, Solu-Medrol. Remains on oral diuretics. Anticoagulated with Xarelto. White count 6.1. Hemoglobin 10.5. Platelets 262. Sodium 140. Potassium 4.6. Bicarb 40. BUN 38. Creatinine 0.66. Glucose 202. Objective - Vital Signs Vital signs: Vital Signs Temp 97.8 F 09/12/24 11:34 Pulse 61 09/12/24 11:34 Resp 18 09/12/24 11:34 BP 147/82 09/12/24 11:34 Pulse Ox 94 L 09/12/24 11:34 FiO2 50 09/12/24 11:34 Intake & Output 09/11/24 09/12/24 09/12/24 18:59 06:59 18:59 Intake Total 458 20 Output Total 500 1201 Balance -42 -1181 Intake: IV 20 20 Invasive Line 1 10 Invasive Line 2 10 20 Intake, IV Titration 200 Amount Piperacillin-Tazobactam 3 200 .375 gm In Sodium Chloride 0.9% 100 ml @ 25 mls/hr IVPB Q8HR [facility] Rx# :[id number] Oral 238 Output: Urine 500 1201 Other: Voiding Method External Catheter External Catheter External Catheter # Voids 1 - Exam GENERAL EXAM: Alert, 64-year-old female, currently calm and cooperative, on Airvo high flow oxygen at 60 L and 50% FiO2, in no apparent distress. HEAD: Normocephalic. EYES: Normal reaction of pupils, equal size. NOSE: Clear with pink turbinates. THROAT: No erythema or exudates. NECK: No masses, no JVD. CHEST: No chest wall deformity. LUNGS: Equal air entry with bilateral scattered rhonchi. CVS: S1 and S2 normal with an audible murmur, regular rhythm. ABDOMEN: No hepatosplenomegaly, normal bowel sounds, no guarding or rigidity. SPINE: No scoliosis or deformity SKIN: No rashes CENTRAL NERVOUS SYSTEM: No focal deficits, tone is normal in all 4 extremities. EXTREMITIES: There is 1-2+ chronic peripheral edema. No clubbing, no cyanosis. Peripheral pulses are intact. - Labs CBC & Chem 7: 09/12/24 07:06 09/12/24 07:06 Labs: Abnormal Lab Results - Last 24 Hours (Table) 09/11/24 09/11/24 09/12/24 Range/Units 16:42 20:33 06:13 RBC (3.80-5.40) m/uL Hgb (11.4-16.0) gm/dL MCHC (31.0-37.0) g/dL Lymphocytes # (1.0-4.8) k/uL Chloride (98-107) mmol/L Carbon Dioxide (22-30) mmol/L BUN (7-17) mg/dL Glucose (74-99) mg/dL POC Glucose (mg/dL) 162 H 171 H 218 H (70-110) mg/dL 09/12/24 09/12/24 09/12/24 Range/Units 07:06 07:06 11:25 RBC 3.62 L (3.80-5.40) m/uL Hgb 10.5 L (11.4-16.0) gm/dL MCHC 30.7 L (31.0-37.0) g/dL Lymphocytes # 0.8 L (1.0-4.8) k/uL Chloride 97 L (98-107) mmol/L Carbon Dioxide 40 H (22-30) mmol/L BUN 38 H (7-17) mg/dL Glucose 202 H (74-99) mg/dL POC Glucose (mg/dL) 207 H (70-110) mg/dL Microbiology - Last 24 Hours (Table) 09/10/24 Unknown Urine Culture - Final Urine,Clean Catch 09/10/24 15:53 Blood Culture - Preliminary Blood 09/09/24 13:05 Blood Culture - Preliminary Blood Assessment and Plan Assessment: Acute hypoxemic respiratory failure secondary to suspected healthcare acquired versus aspiration pneumonia versus diastolic congestive heart failure. Viral screen negative. Procalcitonin negative. Normal left ventricular systolic function Acute exacerbation of chronic obstructive pulmonary disease secondary to above, oxygen dependent COPD History of chronic tobacco dependence History of schizophrenia Diabetes mellitus, type II History of seizures Chronic lower extremity edema Hypertension Hyperlipidemia half-way resident Plan: The patient is seen and evaluated Labs and medications reviewed Continue Airvo high flow oxygen Titrate the FiO2 as tolerated Discontinue Solu-Medrol Initiate a Medrol Dosepak Continue bronchodilators transit specialist at the bedside We will continue to follow I have personally seen and examined the patient, performed the documentation and the assessment and plan as written. Number of minutes spent on the visit: 10 Dictation was produced using [employer] software. Please excuse any grammatical, word or spelling errors.
[2024-09-12 14:08] LABS: ABG Base Excess 10.1 mmol/L; ABG HCO3 36 mmol/L (21-25); ABG PCO2 56 mmHg (35-45); ABG PH 7.42 (7.35-7.45); ABG PO2 80 mmHg (83-108); ABG TCO2 38 mmol/L (19-24); Allen Test Performed? Yes
--- NOTE | 2024-09-12 15:53 | P.PN ---
Subjective Progress Note Date: 09/11/24 Principal diagnosis: Reason for follow-up is tracheobronchitis and a question of pneumonia Patient is a 64-year-old female with a past medical history significant for diabetes mellitus hypertension hyperlipidemia COPD in this patient who is a [facility] resident patient has been brought into the hospital from the local [facility] for evaluation of increasing shortness of breath, patient has been diagnosed with a COPD exacerbation concerning for tracheobronchitis/pneumonia with possible UTI prompted this consultation. On today's evaluation that is 09/11/2024, Patient is afebrile this morning patient denies having any chest pain breathing slightly comfortably however is requiring BiPAP and high flow nasal cannula oxygen patient did have a congested cough not bringing up any sputum no abdominal pain or diarrhea. Patient white count is 7.1 creatinine 0.57 blood cultures currently pending sputum not collected Objective - Vital Signs Vital signs: Vital Signs Temp 98.5 F 09/11/24 18:02 Pulse 73 09/11/24 18:02 Resp 18 09/11/24 18:02 BP 145/85 09/11/24 18:02 Pulse Ox 95 09/11/24 18:02 FiO2 50 09/11/24 18:02 Intake & Output 09/11/24 09/11/24 09/12/24 06:59 18:59 06:59 Intake Total 458 Output Total 350 500 Balance -350 -42 Intake: IV 20 Invasive Line 1 10 Invasive Line 2 10 Intake, IV Titration 200 Amount Piperacillin-Tazobactam 3 200 .375 gm In Sodium Chloride 0.9% 100 ml @ 25 mls/hr IVPB Q8HR [facility] Rx# :[id number] Oral 238 Output: Urine 350 500 Other: Voiding Method External Catheter External Catheter # Voids 1 - Exam GENERAL DESCRIPTION: Middle-age female lying in bed in no distress RESPIRATORY SYSTEM: Unlabored breathing , decreased intensity breath sounds, no wheeze s HEART: S1 S2 regular rate and rhythm , ABDOMEN: Soft , no tenderness EXTREMITIES: No edema feet - Labs CBC & Chem 7: 09/12/24 07:06 09/12/24 07:06 Labs: Abnormal Lab Results - Last 24 Hours (Table) 09/10/24 09/11/24 09/11/24 Range/Units 19:51 06:06 07:32 RBC 3.45 L (3.80-5.40) m/uL Hgb 10.0 L (11.4-16.0) gm/dL Hct 33.0 L (34.0-46.0) % MCHC 30.3 L (31.0-37.0) g/dL Lymphocytes # 0.9 L (1.0-4.8) k/uL Carbon Dioxide (22-30) mmol/L BUN (7-17) mg/dL Glucose (74-99) mg/dL POC Glucose (mg/dL) 148 H 219 H (70-110) mg/dL 09/11/24 09/11/24 09/11/24 Range/Units 07:32 11:42 16:42 RBC (3.80-5.40) m/uL Hgb (11.4-16.0) gm/dL Hct (34.0-46.0) % MCHC (31.0-37.0) g/dL Lymphocytes # (1.0-4.8) k/uL Carbon Dioxide 35 H (22-30) mmol/L BUN 30 H (7-17) mg/dL Glucose 199 H (74-99) mg/dL POC Glucose (mg/dL) 194 H 162 H (70-110) mg/dL Microbiology - Last 24 Hours (Table) 09/09/24 13:05 Blood Culture - Preliminary Blood Assessment and Plan (1) Pneumonia Current Visit: No Status: Acute Code(s): J18.9 - PNEUMONIA, UNSPECIFIED ORGANISM SNOMED Code(s): 465574316 Plan: 1patient presenting to the hospital for evaluation of increasing shortness of breath which is likely multifactorial with a question of possible fluid overload versus pneumonia less likely bilateral excluded patient not running any fever did have mildly elevated white count also noted to have significantly cloudy urine however UA did not show any evidence of pyuria 2-we will try to obtain sputum for Gram stain and culture. 3-patient mentions some improvement in symptoms to continue with Zosyn to continue while waiting for the culture to finalize Dictation was produced using [employer] dictation software. please excuse any grammatical, word or spelling errors.
--- NOTE | 2024-09-12 15:53 | P.PN ---
Subjective Progress Note Date: 09/12/24 Principal diagnosis: Reason for follow-up is tracheobronchitis and a question of pneumonia Patient is a 64-year-old female with a past medical history significant for diabetes mellitus hypertension hyperlipidemia COPD in this patient who is a assisted resident patient has been brought into the hospital from the local assisted for evaluation of increasing shortness of breath, patient has been diagnosed with a COPD exacerbation concerning for tracheobronchitis/pneumonia with possible UTI prompted this consultation. On today's evaluation that is 09/12/2024,the patient denies any fever or any chills, patient is breathing comfortably however still requiring BiPAP and high flow nasal oxygen patient sitter mentioned patient did have a congested cough but he not bring up any sputum no vomiting or diarrhea has been reported. Patient white count 6.1 creatinine 0.66 Objective - Vital Signs Vital signs: Vital Signs Temp 97.8 F 09/12/24 11:34 Pulse 80 09/12/24 13:14 Resp 18 09/12/24 11:34 BP 147/82 09/12/24 11:34 Pulse Ox 94 L 09/12/24 11:34 FiO2 50 09/12/24 13:03 Intake & Output 09/11/24 09/12/24 09/12/24 18:59 06:59 18:59 Intake Total 458 20 318 Output Total 500 1201 Balance -42 -1181 318 Intake: IV 20 20 Invasive Line 1 10 Invasive Line 2 10 20 Intake, IV Titration 200 200 Amount Piperacillin-Tazobactam 3 200 200 .375 gm In Sodium Chloride 0.9% 100 ml @ 25 mls/hr IVPB Q8HR [facility] Rx# :[id number] Oral 238 118 Output: Urine 500 1201 Other: Voiding Method External Catheter External Catheter External Catheter # Voids 1 # Bowel Movements 1 - Exam GENERAL DESCRIPTION: Middle-age female lying in bed in no distress RESPIRATORY SYSTEM: Unlabored breathing , decreased intensity breath sounds, no wheeze s HEART: S1 S2 regular rate and rhythm , ABDOMEN: Soft , no tenderness EXTREMITIES: No edema feet - Labs CBC & Chem 7: 09/12/24 07:06 09/12/24 07:06 Labs: Abnormal Lab Results - Last 24 Hours (Table) 09/11/24 09/11/24 09/12/24 Range/Units 16:42 20:33 06:13 RBC (3.80-5.40) m/uL Hgb (11.4-16.0) gm/dL MCHC (31.0-37.0) g/dL Lymphocytes # (1.0-4.8) k/uL ABG pCO2 (35-45) mmHg ABG pO2 (83-108) mmHg ABG HCO3 (21-25) mmol/L ABG Total CO2 (19-24) mmol/L Hemoglobin (11.4-16.0) gm/dL Chloride (98-107) mmol/L Carbon Dioxide (22-30) mmol/L BUN (7-17) mg/dL Glucose (74-99) mg/dL POC Glucose (mg/dL) 162 H 171 H 218 H (70-110) mg/dL 09/12/24 09/12/24 09/12/24 Range/Units 07:06 07:06 11:25 RBC 3.62 L (3.80-5.40) m/uL Hgb 10.5 L (11.4-16.0) gm/dL MCHC 30.7 L (31.0-37.0) g/dL Lymphocytes # 0.8 L (1.0-4.8) k/uL ABG pCO2 (35-45) mmHg ABG pO2 (83-108) mmHg ABG HCO3 (21-25) mmol/L ABG Total CO2 (19-24) mmol/L Hemoglobin (11.4-16.0) gm/dL Chloride 97 L (98-107) mmol/L Carbon Dioxide 40 H (22-30) mmol/L BUN 38 H (7-17) mg/dL Glucose 202 H (74-99) mg/dL POC Glucose (mg/dL) 207 H (70-110) mg/dL 09/12/24 Range/Units 13:48 RBC (3.80-5.40) m/uL Hgb (11.4-16.0) gm/dL MCHC (31.0-37.0) g/dL Lymphocytes # (1.0-4.8) k/uL ABG pCO2 56 H (35-45) mmHg ABG pO2 80 L (83-108) mmHg ABG HCO3 36 H (21-25) mmol/L ABG Total CO2 38 H (19-24) mmol/L Hemoglobin 11.3 L (11.4-16.0) gm/dL Chloride (98-107) mmol/L Carbon Dioxide (22-30) mmol/L BUN (7-17) mg/dL Glucose (74-99) mg/dL POC Glucose (mg/dL) (70-110) mg/dL Microbiology - Last 24 Hours (Table) 09/10/24 Unknown Urine Culture - Final Urine,Clean Catch 09/10/24 15:53 Blood Culture - Preliminary Blood 09/09/24 13:05 Blood Culture - Preliminary Blood Assessment and Plan (1) Pneumonia Current Visit: No Status: Acute Code(s): J18.9 - PNEUMONIA, UNSPECIFIED ORGANISM SNOMED Code(s): 522327224 Plan: 1patient presenting to the hospital for evaluation of increasing shortness of breath which is likely multifactorial with a question of possible fluid overload versus pneumonia less likely bilateral excluded patient not running any fever did have mildly elevated white count also noted to have significantly cloudy urine however UA did not show any evidence of pyuria 2--patient with minimal improvement in symptoms, sputum has not been collected blood culture currently pending, to continue with Zosyn to continue while waiting for the culture to finalize Dictation was produced using [employer] dictation software. please excuse any grammatical, word or spelling errors. Time with Patient: Less than 30
[2024-09-12 16:34] LABS: Glucose,Whole Blood 180 mg/dL (70-110)
[2024-09-12 19:58] LABS: Glucose,Whole Blood 125 mg/dL (70-110)
--- NOTE | 2024-09-13 05:06 | PN ---
PROGRESS NOTE DATE OF SERVICE: 09/12/2024 SUBJECTIVE: This 64-year-old woman who was admitted with bilateral pneumonia and a combination of COPD exacerbation. The patient appears to be really cyanotic at this time. ABG showed pCO2 of 56 and pO2 of 80. Recommend BiPAP at this time. The most recent chest x-ray showed bilateral lesions also. PAST MEDICAL HISTORY: Reviewed. REVIEW OF SYSTEMS: Could not be taken as the patient is drowsy. CURRENT MEDICATIONS: Reviewed. PHYSICAL EXAMINATION: VITAL SIGNS: Pulse is 82, blood pressure 147/83, respirations 18. HEENT: Conjunctivae normal. NECK: No jugular venous distention. CARDIOVASCULAR: S1 and S2. RESPIRATIONS: Breath sounds diminished at the bases. Bilateral scattered rhonchi and crackles. ABDOMEN: Soft NERVOUS SYSTEM: Nonfocal. LABORATORY DATA: Reviewed. ASSESSMENT: 1. Acute bilateral pneumonia possibly gram-negative versus healthcare-associated pneumonia versus aspiration pneumonia. 2. Chronic obstructive pulmonary disease acute exacerbation. 3. Hypercarbia. 4. Diabetes mellitus, type 2. 5. Hypertension. 6. Hyperlipidemia. 7. Multiple complex medical issues. RECOMMENDATIONS: Recommend to continue current management and symptomatic treatment. Otherwise, I would recommend monitor blood sugars closely. Continue with intensive bronchodilator treatment. Broad-spectrum IV antibiotics. Monitor blood sugars closely. Closely follow with multiple consultants and I would also recommend BiPAP. The patient is rather drowsy at this time. Infectious disease and multiple consultants are following the patient including psych also. Guarded prognosis. Further recommendations to follow. MMODL / IJN: [id number] /
[2024-09-13 06:13] LABS: Glucose,Whole Blood 111 mg/dL (70-110)
[2024-09-13 07:41] LABS: Basophils % (A) 0 %; Eosinophils % (A) 0 %; HCT 34.7 % (34.0-46.0); HGB 10.6 gm/dL (11.4-16.0); Hypochromasia Marked; Lymphocytes # (A) 1.4 k/uL (1.0-4.8); Lymphocytes % (A) 20 %; MCH 28.9 pg (25.0-35.0); MCHC 30.7 g/dL (31.0-37.0); MCV 94.2 fL (80.0-100.0); Mean Platelet Volume 7.8; Monocytes # (A) 0.8 k/uL (0-1.0); Monocytes % (A) 10 %; Neutrophils % (A) 68 %; Platelet Count 222 k/uL (150-450); RBC 3.69 m/uL (3.80-5.40); RDW 15.3 % (11.5-15.5); WBC 7.3 k/uL (3.8-10.6)
[2024-09-13 08:07] LABS: African American GFR (CKD) >90 (>60 ml/min/1.73 sqM); Blood Urea Nitrogen 38 mg/dL (7-17); Calcium 8.4 mg/dL (8.4-10.2); Chloride 98 mmol/L (98-107); Glucose 99 mg/dL (74-99); Non-African American GFR(CKD) >90 (>60 ml/min/1.73 sqM); Sodium 138 mmol/L (137-145)
[2024-09-13 08:14] LABS: Anion Gap 4 mmol/L
[2024-09-13] MEDS: methylPREDNISolone 4 MG TAB TAPER PO SCH (08:39)
[2024-09-13 08:51] LABS: Carbon Dioxide 36 mmol/L (22-30); Potassium 4.5 mmol/L (3.5-5.1)
[2024-09-13 11:52] LABS: Glucose,Whole Blood 99 mg/dL (70-110)
--- NOTE | 2024-09-13 11:56 | P.PN ---
Subjective Progress Note Date: 09/13/24 Principal diagnosis: Reason for follow-up is tracheobronchitis and a question of pneumonia Patient is a 64-year-old female with a past medical history significant for diabetes mellitus hypertension hyperlipidemia COPD in this patient who is a [facility] resident patient has been brought into the hospital from the local [facility] for evaluation of increasing shortness of breath, patient has been diagnosed with a COPD exacerbation concerning for tracheobronchitis/pneumonia with possible UTI prompted this consultation. On today's evaluation that is 09/13/2024,the patient remains to be afebrile, patient is on high flow nasal cannula supplemental oxygen and denies any worsening shortness of breath no chest pain and denies any worsening cough.Patient denies having any nausea or vomiting, no abdominal pain and no diarrhea has been reported. Patient white count is 7.3, creatinine 0.63 urine is growing yeast Objective - Vital Signs Vital signs: Vital Signs Temp 98.5 F 09/13/24 08:00 Pulse 66 09/13/24 11:18 Resp 18 09/13/24 11:18 BP 111/66 09/13/24 08:00 Pulse Ox 94 L 09/13/24 08:00 FiO2 45 09/13/24 11:10 Intake & Output 09/12/24 09/13/24 09/13/24 18:59 06:59 18:59 Intake Total 436 Output Total 300 Balance 436 -300 Intake: Intake, IV Titration 200 Amount Piperacillin-Tazobactam 3 200 .375 gm In Sodium Chloride 0.9% 100 ml @ 25 mls/hr IVPB Q8HR [facility] Rx# :[id number] Oral 236 Output: Urine 300 Other: Voiding Method External Catheter External Catheter External Catheter # Bowel Movements 1 - Exam GENERAL DESCRIPTION: Middle-age female lying in bed in no distress RESPIRATORY SYSTEM: Unlabored breathing , decreased intensity breath sounds, no wheeze s HEART: S1 S2 regular rate and rhythm , ABDOMEN: Soft , no tenderness EXTREMITIES: No edema feet - Labs CBC & Chem 7: 09/13/24 06:15 09/13/24 06:15 Labs: Abnormal Lab Results - Last 24 Hours (Table) 09/12/24 09/12/24 09/12/24 Range/Units 13:48 16:31 19:56 RBC (3.80-5.40) m/uL Hgb (11.4-16.0) gm/dL MCHC (31.0-37.0) g/dL ABG pCO2 56 H (35-45) mmHg ABG pO2 80 L (83-108) mmHg ABG HCO3 36 H (21-25) mmol/L ABG Total CO2 38 H (19-24) mmol/L Hemoglobin 11.3 L (11.4-16.0) gm/dL Carbon Dioxide (22-30) mmol/L BUN (7-17) mg/dL POC Glucose (mg/dL) 180 H 125 H (70-110) mg/dL 09/13/24 09/13/24 09/13/24 Range/Units 06:11 06:15 06:15 RBC 3.69 L (3.80-5.40) m/uL Hgb 10.6 L (11.4-16.0) gm/dL MCHC 30.7 L (31.0-37.0) g/dL ABG pCO2 (35-45) mmHg ABG pO2 (83-108) mmHg ABG HCO3 (21-25) mmol/L ABG Total CO2 (19-24) mmol/L Hemoglobin (11.4-16.0) gm/dL Carbon Dioxide 36 H (22-30) mmol/L BUN 38 H (7-17) mg/dL POC Glucose (mg/dL) 111 H (70-110) mg/dL Microbiology - Last 24 Hours (Table) 09/10/24 Unknown Urine Culture - Final Urine,Clean Catch Yeast species 09/10/24 15:53 Blood Culture - Preliminary Blood 09/09/24 13:05 Blood Culture - Preliminary Blood Assessment and Plan (1) Pneumonia Current Visit: No Status: Acute Code(s): J18.9 - PNEUMONIA, UNSPECIFIED ORGANISM SNOMED Code(s): 501860044 Plan: 1patient presenting to the hospital for evaluation of increasing shortness of breath which is likely multifactorial with a question of possible fluid overload versus pneumonia less likely bilateral excluded patient not running any fever did have mildly elevated white count also noted to have significantly cloudy urine however UA did not show any evidence of pyuria 2--patient did have some improvement in respiratory symptoms Zosyn has been discontinued we will monitor closely off antibiotic 3-urine culture with yeast UA was not significantly positive no need for antifungal Dictation was produced using dragon dictation software. please excuse any grammatical, word or spelling errors. Time with Patient: Less than 30
--- NOTE | 2024-09-13 13:58 | P.PN ---
Subjective Progress Note Date: 09/13/24 This is a 64-year-old female patient with a history of schizophrenia and resides in a local senior living. She also has a history of COPD, diabetes mellitus, hyperlipidemia, hypertension, home oxygen, chronic bilateral lower extremity edema, chronic tobacco dependence. She was brought into the emergency room yesterday with complaints of shortness of breath. Chest x-ray reveals bibasilar patchy airspace opacities with cardiomegaly and small left pleural effusion. White count 6.2. Hemoglobin 10.2. Platelets 232. Sodium 139. Potassium 4.5. Bicarb 39. BUN 23. Creatinine 0.56. Glucose 174. 60%. She is seen today in consultation on the selective care unit. She is currently sitting up in bed. She has pulled off her Airvo high flow oxygen, pulled off her electrodes and gown. She is placed back on the Airvo high flow oxygen at 60 L and 60% FiO2. O2 saturations in the 90s. Is on DuoNeb inhalations, IV Solu-Medrol, oral diuretics. Antibiotics in the form of Zosyn. The patient is seen today September 11, 2024 in follow-up on the regular medical floor. She is currently resting more comfortably in bed. Maintaining O2 saturations in the 90s on Airvo high flow oxygen at 60 L and 50% FiO2 with O2 saturations in the 90s. Axillary temperature 99.5. Hemodynamically stable. circus hand at the bedside. Worsening right lower lobe infiltrate. Mild infiltrate to the left lung base. Fullness of the right hilum. White count 7.1. Hemoglobin 10.0. Platelets 239. Sodium 140. Potassium 4.6. Bicarb 35. BUN 30. Creatinine 0.57. Glucose 199. She is continued on Zosyn. Remains on IV diuretics. Continued on Symbicort and DuoNeb inhalations along with Solu- Medrol. Anticoagulated with Xarelto. The patient is seen today September 12, 2024 in follow-up on the regular medical floor. She is currently sitting up in bed. Awake and alert in no acute distress. She remains on Airvo high flow oxygen at 60 L and 50% FiO2. She is a bit more calm and cooperative today. circus hand at the bedside. She is continued on Zosyn. Remains on Symbicort, DuoNeb inhalations, Solu-Medrol. Remains on oral diuretics. Anticoagulated with Xarelto. White count 6.1. Hemoglobin 10.5. Platelets 262. Sodium 140. Potassium 4.6. Bicarb 40. BUN 38. Creatinine 0.66. Glucose 202. The patient is seen today September 13, 2024 in follow-up on the regular medical floor. She is currently resting in bed. Awake and alert in no acute distress. Currently calm and cooperative. She is on the Airvo high flow oxygen at 50 L and 45% FiO2. She continues on DuoNeb inhalations, Symbicort, Medrol Dosepak. White count 7.3. Hemoglobin 10.6. Platelets 222. Sodium 138. Potassium 4.5. Bicarb 36. BUN 38. Creatinine 0.63. Glucose 99. Procalcitonin was negative at 0.02. Zosyn is discontinued. She remains on oral diuretics. Objective - Vital Signs Vital signs: Vital Signs Temp 98.5 F 09/13/24 08:00 Pulse 66 09/13/24 12:00 Resp 18 09/13/24 11:18 BP 112/69 09/13/24 12:00 Pulse Ox 91 L 09/13/24 12:00 FiO2 51 09/13/24 12:00 Intake & Output 09/12/24 09/13/24 09/13/24 18:59 06:59 18:59 Intake Total 436 118 Output Total 300 Balance 436 -300 118 Intake: Intake, IV Titration 200 Amount Piperacillin-Tazobactam 3 200 .375 gm In Sodium Chloride 0.9% 100 ml @ 25 mls/hr IVPB Q8HR [facility] Rx# :[id number] Oral 236 118 Output: Urine 300 Other: Voiding Method External Catheter External Catheter External Catheter # Bowel Movements 1 - Exam GENERAL EXAM: Alert, 64-year-old female, on Airvo high flow oxygen at 50 L and 45% FiO2, in no apparent distress. HEAD: Normocephalic. EYES: Normal reaction of pupils, equal size. NOSE: Clear with pink turbinates. THROAT: No erythema or exudates. NECK: No masses, no JVD. CHEST: No chest wall deformity. LUNGS: Equal air entry with bilateral scattered rhonchi. CVS: S1 and S2 normal with an audible murmur, regular rhythm. ABDOMEN: No hepatosplenomegaly, normal bowel sounds, no guarding or rigidity. SPINE: No scoliosis or deformity SKIN: No rashes CENTRAL NERVOUS SYSTEM: No focal deficits, tone is normal in all 4 extremities. EXTREMITIES: There is 1-2+ chronic peripheral edema. No clubbing, no cyanosis. Peripheral pulses are intact. - Labs CBC & Chem 7: 09/13/24 06:15 09/13/24 06:15 Labs: Abnormal Lab Results - Last 24 Hours (Table) 09/12/24 09/12/24 09/12/24 Range/Units 13:48 16:31 19:56 RBC (3.80-5.40) m/uL Hgb (11.4-16.0) gm/dL MCHC (31.0-37.0) g/dL ABG pCO2 56 H (35-45) mmHg ABG pO2 80 L (83-108) mmHg ABG HCO3 36 H (21-25) mmol/L ABG Total CO2 38 H (19-24) mmol/L Hemoglobin 11.3 L (11.4-16.0) gm/dL Carbon Dioxide (22-30) mmol/L BUN (7-17) mg/dL POC Glucose (mg/dL) 180 H 125 H (70-110) mg/dL 09/13/24 09/13/24 09/13/24 Range/Units 06:11 06:15 06:15 RBC 3.69 L (3.80-5.40) m/uL Hgb 10.6 L (11.4-16.0) gm/dL MCHC 30.7 L (31.0-37.0) g/dL ABG pCO2 (35-45) mmHg ABG pO2 (83-108) mmHg ABG HCO3 (21-25) mmol/L ABG Total CO2 (19-24) mmol/L Hemoglobin (11.4-16.0) gm/dL Carbon Dioxide 36 H (22-30) mmol/L BUN 38 H (7-17) mg/dL POC Glucose (mg/dL) 111 H (70-110) mg/dL Microbiology - Last 24 Hours (Table) 09/10/24 Unknown Urine Culture - Final Urine,Clean Catch Yeast species 09/10/24 15:53 Blood Culture - Preliminary Blood 09/09/24 13:05 Blood Culture - Preliminary Blood Assessment and Plan Assessment: Acute hypoxemic respiratory failure secondary to suspected healthcare acquired versus aspiration pneumonia versus diastolic congestive heart failure. Viral screen negative. Procalcitonin negative. Normal left ventricular systolic function Acute exacerbation of chronic obstructive pulmonary disease secondary to above, oxygen dependent COPD History of chronic tobacco dependence History of schizophrenia Diabetes mellitus, type II History of seizures Chronic lower extremity edema Hypertension Hyperlipidemia custodial resident Plan: The patient is seen and evaluated Labs and medications reviewed Continue Airvo high flow oxygen Titrate the FiO2 as tolerated Continue bronchodilators, steroids Procalcitonin negative, Zosyn discontinued circus hand at the bedside We will continue to follow I have personally seen and examined the patient, performed the documentation and the assessment and plan as written. Number of minutes spent on the visit: 10 Dictation was produced using [employer] dictation software. Please excuse any grammatical, word or spelling errors.
[2024-09-13 16:13] LABS: Glucose,Whole Blood 180 mg/dL (70-110)
[2024-09-13 20:25] LABS: Glucose,Whole Blood 223 mg/dL (70-110)
--- NOTE | 2024-09-13 23:38 | P.PN ---
Subjective Progress Note Date: 09/13/24 This is a 64-year-old female who resides at [facility] was sent here with concerns of possible bilateral pneumonia and increasing shortness of breath found to have COPD exacerbation. Patient initially requiring BiPAP and has been placed on Airvo and is weaning as tolerated 45/45 currently. Procalcitonin was low and pulmonary has discontinued antibiotics. Infectious disease following being closely monitored off antibiotic therapy. Patient continues on steroids and has been transition to a Medrol Dosepak along with [id number] DuoNeb treatments and inhalers. Plan is for patient to return to [facility] once patient has been weaned off Airvo. Recommend follow-up chest x-ray in the a.m. and will continue to monitor closely. Review of systems: Constitutional: No reports of fatigue, fever, or chills Cardiovascular: No reports of chest pain or palpitations Respiratory: reports of shortness of breath with exertion although no worse GI: No reports of nausea, no reports of vomiting, no diarrhea : No reports of dysuria or retention Neurovascular: reports of generalized weakness All medications have been reviewed Active Medications Acetaminophen (Acetaminophen Tab 325 Mg Tab) 650 mg PO Q4HR PRN PRN Reason: Mild Pain or Fever > 100.5 Albuterol/Ipratropium (Ipratropium-Albuterol 3 Ml Neb) 3 ml INHALATION RT-QID REPLACED BY [facility] Last Admin: 09/13/24 20:14 Dose: 3 ml Albuterol/Ipratropium (Ipratropium-Albuterol 3 Ml Neb) 3 ml INHALATION RT-Q2H PRN PRN Reason: Shortness Of Breath Or Wheezing Ascorbic Acid (Ascorbic Acid 500 Mg Tab) 500 mg PO BID@0800,1700 REPLACED BY [facility] Last Admin: 09/13/24 17:45 Dose: 500 mg Aspirin (Aspirin 81 Mg) 81 mg PO DAILY@0800 REPLACED BY [facility] Last Admin: 09/13/24 08:38 Dose: 81 mg Atorvastatin Calcium (Atorvastatin 20 Mg Tab) 20 mg PO HS@2100 REPLACED BY [facility] Last Admin: 09/13/24 21:22 Dose: 20 mg Bisacodyl (Bisacodyl 10 Mg Supp) 10 mg RECTAL DAILY PRN PRN Reason: Constipation Budesonide/Formoterol Fumarate (Symbicort 160-4.5 Mcg Inhaler) 2 puff I NHALATION RT-BID@ REPLACED BY [facility] Last Admin: 09/13/24 20:14 Dose: 2 puff Clozapine (Clozapine 100 Mg Tab) 200 mg PO HS@2100 REPLACED BY [facility] Stop: 09/15/24 23:00 Last Admin: 09/13/24 21:22 Dose: 200 mg Dextrose/Water (Dextrose 50% Syringe 50 Ml) 25 ml IVP PER PROTOCOL PRN; Protocol PRN Reason: Hypoglycemia Dextrose/Water (Dextrose 50% Syringe 50 Ml) 50 ml IVP PER PROTOCOL PRN; Protocol PRN Reason: Hypoglycemia Divalproex Sodium (Divalproex Er 500 Mg Tab.Er.24h) 500 mg PO BID@0800,2100 REPLACED BY [facility] Last Admin: 09/13/24 21:22 Dose: 500 mg Divalproex Sodium (Divalproex Er 250 Mg Tab.Er.24h) 250 mg PO HS REPLACED BY [facility] Last Admin: 09/13/24 21:22 Dose: 250 mg Ergocalciferol (Ergocalciferol 1,250 Mcg (50,000 Iu) Capsule) 1,250 mcg PO SA@1700 REPLACED BY [facility] Last Admin: 09/11/24 09:40 Dose: 1,250 mcg Famotidine (Famotidine 20 Mg Tab) 20 mg PO DAILY@0800 REPLACED BY [facility] Last Admin: 09/13/24 08:38 Dose: 20 mg Folic Acid (Folic Acid 1 Mg Tab) 1 mg PO DAILY@1200 REPLACED BY [facility] Last Admin: 09/13/24 12:33 Dose: 1 mg Furosemide (Furosemide 20 Mg Tab) 20 mg PO BID@0800,1700 REPLACED BY [facility] Last Admin: 09/13/24 17:45 Dose: 20 mg Haloperidol (Haloperidol 5 Mg Tab) 5 mg PO Q6HR PRN PRN Reason: Agitation Last Admin: 09/11/24 17:46 Dose: 5 mg Haloperidol Lactate (Haloperidol Lactate 5 Mg/Ml 1 Ml Vial) 5 mg IM Q6HR PRN PRN Reason: Agitation or Acute Psychosis Last Admin: 09/10/24 23:57 Dose: 5 mg Insulin Aspart (Insulin Aspart (Novolog) 100 Unit/Ml Vial) 0 unit SQ [facility]; Protocol Last Admin: 09/13/24 21:28 Dose: 2 unit Insulin Aspart (Insulin Aspart (Novolog) 100 Unit/Ml Vial) 7 unit SQ BID@0800,1700 REPLACED BY [facility] Last Admin: 09/13/24 17:45 Dose: 7 unit Insulin Aspart (Insulin Aspart (Novolog) 100 Unit/Ml Vial) 10 unit SQ DAILY@1200 REPLACED BY [facility] Last Admin: 09/13/24 12:33 Dose: 10 unit Insulin Detemir (Insulin Detemir (Levemir) 100 Unit/Ml Syr) 10 unit SQ DAILY@0800 REPLACED BY [facility] Last Admin: 09/13/24 08:51 Dose: 10 unit Lactulose (Lactulose 20 Gm/30 Ml Cup) 20 gm PO DAILY PRN PRN Reason: Constipation Linagliptin (Linagliptin 5 Mg Tablet) 5 mg PO DAILY@0800 REPLACED BY [facility] Last Admin: 09/13/24 08:38 Dose: 5 mg Loperamide HCl (Loperamide 2 Mg Cap) 2 - 4 mg PO TID PRN PRN Reason: Diarrhea Magnesium Hydroxide (Magnesium Hydroxide 2,400 Mg/30 Ml Cup) 2,400 mg PO DAILY PRN PRN Reason: Constipation Metformin HCl (Metformin 500 Mg Tab) 1,000 mg PO BID@0800,1700 REPLACED BY [facility] Last Admin: 09/13/24 17:45 Dose: 1,000 mg Methylprednisolone (Methylprednisolone 4 Mg Tab Taper) 24 mg PO DAILY REPLACED BY [facility]; Taper Stop: 09/19/24 08:59 Last Admin: 09/13/24 08:39 Dose: 24 mg Multivitamins (Multivitamins, Thera 1 Each Tab) 1 each PO DAILY@1200 REPLACED BY [facility] Last Admin: 09/13/24 12:33 Dose: 1 each Naloxone HCl (Naloxone 0.4 Mg/Ml 1 Ml Vial) 0.2 mg IVP Q2M PRN PRN Reason: Opioid Reversal Pantoprazole Sodium (Pantoprazole 40 Mg/10 Ml Vial) 40 mg IVP DAILY REPLACED BY [facility] Last Admin: 09/13/24 08:38 Dose: 40 mg Quetiapine Fumarate (Quetiapine 25 Mg Tab) 25 mg PO HS REPLACED BY [facility] Last Admin: 09/13/24 21:22 Dose: 25 mg Rivaroxaban (Rivaroxaban 10 Mg Tab) 10 mg PO DAILY@0800 REPLACED BY [facility]; Protocol Last Admin: 09/13/24 08:39 Dose: 10 mg Sodium Biphosphate/Sodium Phosphate (Na Phos,M-B/Na Phos,Di-Ba 133 Ml Enema) 133 ml RECTAL DAILY PRN PRN Reason: Constipation Thiamine HCl (Thiamine 100 Mg Tab) 100 mg PO DAILY REPLACED BY [facility] Last Admin: 09/13/24 08:38 Dose: 100 mg Zinc Sulfate (Zinc Sulfate 220 Mg Cap) 220 mg PO DAILY@1700 [facility] Last Admin: 09/13/24 17:46 Dose: Not Given PHYSICAL EXAMINATION: GENERAL: The patient is alert and oriented x 12. Baseline well developed, elderly appearing, morbidly obese, ill-appearing HEENT: Pupils are round and equally reacting to light. EOMI. no scleral icterus. No conjunctival pallor. Normocephalic, atraumatic. No pharyngeal erythema. No thyromegaly. CARDIOVASCULAR: S1 and S2 muffled PULMONARY: diminished breath sounds bilaterally with some faint expiratory wheezing and rhonchi noted. ABDOMEN: soft. Nontender on exam. obese. non-distended, normoactive bowel sounds. No palpable organomegaly. MUSCULOSKELETAL: No joint swelling or deformity. EXTREMITIES: No cyanosis, clubbing, or pedal edema. NEUROLOGICAL: Gross neurological examination did not reveal any focal deficits. Diffuse weakness SKIN: No rashes. Assessment: Acute bilateral pneumonia, possibly gram-negative versus healthcare associated pneumonia versus aspiration pneumonia Chronic obstructive pulmonary disease, acute exacerbation Acute on chronic hypoxic respiratory failure secondary above Hypercarbia Diabetes mellitus, type II Morbid obesity with a BMI of 44.6 Hypertension Hyperlipidemia GI prophylaxis DVT prophylaxis Full code Plan: Recommend to continue with current medications and management with pulmonary and infectious disease following. Patient is maintained on Airvo currently [id number] and weaning as tolerated. Patient chronically wears oxygen outpatient and would probably benefit from BiPAP although unsure if patient will keep the mask on Patient being followed by pulmonary maintained on [id number] DuoNeb treatments and has been transition to a Medrol Dosepak Continue monitoring Accu-Cheks before meals and at bedtime and will adjust insulins accordingly Patient was evaluated by psychiatry making recommendations to medications Will discuss further with consultations regarding discharge planning. Antibiotics were discontinued by pulmonary with infectious disease following and being closely monitored off antibiotic therapy. Urine culture showing Arm[place] Due to multiple complex medical issues, overall prognosis is guarded The impression and plan of care has been dictated by Shonda Junior, nurse practitioner as directed. Dr. Shay MD I have performed a history and examination and MDM of this patient, discussed the same with the dictator, and agree with the dictator's assessment and plan as written ,documented as a scribe. Based on total visit time, I have performed more than 50% of the visit. Any additional findings or plans will be noted. Objective - Vital Signs Vital signs: Vital Signs Temp 98.0 F 09/13/24 20:00 Pulse 72 09/13/24 20:25 Resp 20 09/13/24 20:00 BP 123/85 09/13/24 20:00 Pulse Ox 95 09/13/24 20:00 FiO2 45 09/13/24 20:14 Intake & Output 09/13/24 09/13/24 09/14/24 06:59 18:59 06:59 Intake Total 236 Output Total 300 1650 821 Balance -148 -9840 -830 Intake: Oral 236 Output: Urine 300 1650 475 Other: Voiding Method External Catheter External Catheter External Catheter # Bowel Movements 1 - Labs CBC & Chem 7: 09/13/24 06:15 09/13/24 06:15 Labs: Abnormal Lab Results - Last 24 Hours (Table) 09/13/24 09/13/24 09/13/24 Range/Units 06:11 06:15 06:15 RBC 3.69 L (3.80-5.40) m/uL Hgb 10.6 L (11.4-16.0) gm/dL MCHC 30.7 L (31.0-37.0) g/dL Carbon Dioxide 36 H (22-30) mmol/L BUN 38 H (7-17) mg/dL POC Glucose (mg/dL) 111 H (70-110) mg/dL 09/13/24 09/13/24 Range/Units 16:12 20:21 RBC (3.80-5.40) m/uL Hgb (11.4-16.0) gm/dL MCHC (31.0-37.0) g/dL Carbon Dioxide (22-30) mmol/L BUN (7-17) mg/dL POC Glucose (mg/dL) 180 H 223 H (70-110) mg/dL Microbiology - Last 24 Hours (Table) 09/10/24 15:53 Blood Culture - Preliminary Blood 09/10/24 Unknown Urine Culture - Final Urine,Clean Catch Yeast species 09/09/24 13:05 Blood Culture - Preliminary Blood
[2024-09-14 06:10] LABS: Glucose,Whole Blood 110 mg/dL (70-110)
[2024-09-14 08:07] LABS: Glucose,Whole Blood 345 mg/dL (70-110)
--- NOTE | 2024-09-14 08:55 | XR ---
EXAMINATION TYPE: XR chest 1V portable DATE OF EXAM: 09/14/2024 CLINICAL HISTORY: Respiratory distress TECHNIQUE: Single frontal view of the chest is obtained. COMPARISON: 09/11/2024 FINDINGS: Patchy infiltrate right infrahilar region. Additional increased density left lower lobe. Gutiérrez spect pneumonia. Follow-up until resolution recommended. The cardiac silhouette size is within normal limits. The osseous structures are intact. IMPRESSION: Patchy infiltrate right infrahilar region. Additional increased density left lower lobe. Suspect pneumonia. Follow-up until resolution recommended. [facility], , 09/14/2024 8:53 AM
[2024-09-14 11:20] LABS: Glucose,Whole Blood 154 mg/dL (70-110)
--- NOTE | 2024-09-14 12:47 | P.PN ---
Subjective Progress Note Date: 09/14/24 Principal diagnosis: COPD exacerbation. This is a 64-year-old female patient with a history of schizophrenia and resides in a local senior care. She also has a history of COPD, diabetes mellitus, hyperlipidemia, hypertension, home oxygen, chronic bilateral lower extremity edema, chronic tobacco dependence. She was brought into the emergency room yesterday with complaints of shortness of breath. Chest x-ray reveals bibasilar patchy airspace opacities with cardiomegaly and small left pleural effusion. White count 6.2. Hemoglobin 10.2. Platelets 232. Sodium 139. Potassium 4.5. Bicarb 39. BUN 23. Creatinine 0.56. Glucose 174. 60%. She is seen today in consultation on the selective care unit. She is currently sitting up in bed. She has pulled off her Airvo high flow oxygen, pulled off her electrodes and gown. She is placed back on the Airvo high flow oxygen at 60 L and 60% FiO2. O2 saturations in the 90s. Is on DuoNeb inhalations, IV Solu-Medrol, oral diuretics. Antibiotics in the form of Zosyn. The patient is seen today September 11, 2024 in follow-up on the regular medical floor. She is currently resting more comfortably in bed. Maintaining O2 saturations in the 90s on Airvo high flow oxygen at 60 L and 50% FiO2 with O2 saturations in the 90s. Axillary temperature 99.5. Hemodynamically stable. weekday babysitter at the bedside. Worsening right lower lobe infiltrate. Mild infiltrate to the left lung base. Fullness of the right hilum. White count 7.1. Hemoglobin 10.0. Platelets 239. Sodium 140. Potassium 4.6. Bicarb 35. BUN 30. Creatinine 0.57. Glucose 199. She is continued on Zosyn. Remains on IV diuretics. Continued on Symbicort and DuoNeb inhalations along with Solu- Medrol. Anticoagulated with Xarelto. The patient is seen today September 12, 2024 in follow-up on the regular medical floor. She is currently sitting up in bed. Awake and alert in no acute distress. She remains on Airvo high flow oxygen at 60 L and 50% FiO2. She is a bit more calm and cooperative today. weekday babysitter at the bedside. She is co ntinued on Zosyn. Remains on Symbicort, DuoNeb inhalations, Solu-Medrol. Remains on oral diuretics. Anticoagulated with Xarelto. White count 6.1. Hemoglobin 10.5. Platelets 262. Sodium 140. Potassium 4.6. Bicarb 40. BUN 38. Creatinine 0.66. Glucose 202. The patient is seen today September 13, 2024 in follow-up on the regular medical floor. She is currently resting in bed. Awake and alert in no acute distress. Currently calm and cooperative. She is on the Airvo high flow oxygen at 50 L and 45% FiO2. She continues on DuoNeb inhalations, Symbicort, Medrol Dosepak. White count 7.3. Hemoglobin 10.6. Platelets 222. Sodium 138. Potassium 4.5. Bicarb 36. BUN 38. Creatinine 0.63. Glucose 99. Procalcitonin was negative at 0.02. Zosyn is discontinued. She remains on oral diuretics. Progress note dated September 14, 2024. 64-year-old female seen today in room 378. The patient appears to be doing about the same. She continues on Airvo, with settings of 40 L/min, and an FiO2 of 40%. She is not receiving any IV fluids. She appears to be awake and alert. No acute distress. She is laying in bed. No new laboratory data today other than a glucose of 154. Chest x-ray shows patchy infiltrate, right infrahilar region. In addition, there is increased density, left lower lobe. Procalcitonin level from September 10, was 0.02. Objective - Vital Signs Vital signs: Vital Signs Temp 98.0 F 09/14/24 11:38 Pulse 80 09/14/24 11:38 Resp 18 09/14/24 11:38 BP 121/80 09/14/24 11:38 Pulse Ox 89 L 09/14/24 11:48 FiO2 45 09/14/24 11:48 Intake & Output 09/13/24 09/14/24 09/14/24 18:59 06:59 18:59 Intake Total 236 180 Output Total 2238 081 1858 Balance -9715 -510 -2389 Intake: Oral 236 180 Output: Urine 5910 007 8623 Other: Voiding Method External Catheter External Catheter External Catheter # Bowel Movements 1 - Exam No acute distress, oriented 3. Currently on Airvo. HEENT examination is grossly unremarkable. Mucous membranes are moist. No oral lesions. Neck supple. Full range of motion. No adenopathy thyromegaly or neck vein distention. Cardiovascular examination reveals regular rhythm rate. S1-S2 normal. No S3 or S4. Soft systolic murmur noted. Lungs reveal bilateral expiratory and inspiratory rhonchi. No wheezes or crackles. Abdomen soft bowel sounds are heard. No masses or tenderness. Extremities are intact. No cyanosis or clubbing. Mild edema noted. Skin is without rash or lesion. Neurologic examination is brief but nonfocal. - Labs CBC & Chem 7: 09/13/24 06:15 09/13/24 06:15 Labs: Abnormal Lab Results - Last 24 Hours (Table) 09/13/24 09/13/24 09/14/24 Range/Units 16:12 20:21 08:06 POC Glucose (mg/dL) 180 H 223 H 345 H (70-110) mg/dL 09/14/24 Range/Units 11:18 POC Glucose (mg/dL) 154 H (70-110) mg/dL Microbiology - Last 24 Hours (Table) 09/10/24 15:53 Blood Culture - Preliminary Blood Assessment and Plan Assessment: Acute hypoxemic respiratory failure secondary to suspected healthcare acquired versus aspiration pneumonia versus diastolic congestive heart failure. Acute exacerbation of chronic obstructive pulmonary disease. History of chronic tobacco dependence. History of schizophrenia. Diabetes mellitus, type II. History of seizures. Chronic lower extremity edema. Hypertension. Hyperlipidemia. [facility] resident. Plan: Plan dated September 14, 2024. The patient is seen today in room 378. The patient remains on Airvo, with settings of 40 L/min, and an FiO2 of 40%. Labs, x-rays, and all medications are reviewed. The patient is currently not on any antibiotics. Her procalcitonin level was 0.02. She continues on breathing treatments, and Symbicort. We will continue to follow. Prognosis is guarded. Time with Patient: Less than 30
--- NOTE | 2024-09-14 14:10 | P.PN ---
Subjective Progress Note Date: 09/14/24 Principal diagnosis: Reason for follow-up is tracheobronchitis and a question of pneumonia Patient is a 64-year-old female with a past medical history significant for diabetes mellitus hypertension hyperlipidemia COPD in this patient who is a alf resident patient has been brought into the hospital from the local alf for evaluation of increasing shortness of breath, patient has been diagnosed with a COPD exacerbation concerning for tracheobronchitis/pneumonia with possible UTI prompted this consultation. On today's evaluation that is 09/14/2024, the patient continues to be afebrile, the patient is on high flow nasal cannula oxygen however denies having any worsening shortness of breath no chest pain did have some cough no sputum production no vomiting or diarrhea has been reported. No new lab has been obtained today Objective - Vital Signs Vital signs: Vital Signs Temp 98.0 F 09/14/24 11:38 Pulse 80 09/14/24 11:38 Resp 18 09/14/24 11:38 BP 121/80 09/14/24 11:38 Pulse Ox 89 L 09/14/24 11:48 FiO2 45 09/14/24 11:48 Intake & Output 09/13/24 09/14/24 09/14/24 18:59 06:59 18:59 Intake Total 236 180 Output Total 1544 405 5008 Balance -5898 -985 -0538 Intake: Oral 236 180 Output: Urine 8344 178 6160 Other: Voiding Method External Catheter External Catheter External Catheter # Bowel Movements 1 - Exam GENERAL DESCRIPTION: Middle-age female lying in bed in no distress RESPIRATORY SYSTEM: Unlabored breathing , decreased intensity breath sounds, no wheeze s HEART: S1 S2 regular rate and rhythm , ABDOMEN: Soft , no tenderness EXTREMITIES: No edema feet - Labs CBC & Chem 7: 09/13/24 06:15 09/13/24 06:15 Labs: Abnormal Lab Results - Last 24 Hours (Table) 09/13/24 09/13/24 09/14/24 Range/Units 16:12 20:21 08:06 POC Glucose (mg/dL) 180 H 223 H 345 H (70-110) mg/dL 09/14/24 Range/Units 11:18 POC Glucose (mg/dL) 154 H (70-110) mg/dL Microbiology - Last 24 Hours (Table) 09/10/24 15:53 Blood Culture - Preliminary Blood Assessment and Plan (1) Pneumonia Current Visit: No Status: Acute Code(s): J18.9 - PNEUMONIA, UNSPECIFIED ORGANISM SNOMED Code(s): 153323407 Plan: 1patient presenting to the hospital for evaluation of increasing shortness of breath which is likely multifactorial with a question of possible fluid overload versus pneumonia less likely bilateral excluded patient not running any fever did have mildly elevated white count also noted to have significantly cloudy urine however UA did not show any evidence of pyuria 2--patient did have some improvement in respiratory symptoms Zosyn has been discontinued currently being monitored closely off antibiotic therapy 3-urine culture with yeast UA was not significantly, no need for Diflucan Dictation was produced using [employer] dictation software. please excuse any grammatical, word or spelling errors. Time with Patient: Less than 30
[2024-09-14 16:14] LABS: Glucose,Whole Blood 175 mg/dL (70-110)
[2024-09-14 20:02] LABS: Glucose,Whole Blood 159 mg/dL (70-110)
--- NOTE | 2024-09-15 03:59 | P.PN ---
Subjective Progress Note Date: 09/14/24 This is a 64-year-old female who resides at [facility] was sent here with concerns of possible bilateral pneumonia and increasing shortness of breath found to have COPD exacerbation. Patient initially requiring BiPAP and has been placed on Airvo and is weaning as tolerated 45/45 currently. Procalcitonin was low and pulmonary has discontinued antibiotics. Infectious disease following being closely monitored off antibiotic therapy. Patient continues on steroids and has been transition to a Medrol Dosepak along with [id number] DuoNeb treatments and inhalers. Plan is for patient to return to [facility] once patient has been weaned off Airvo. Recommend follow-up chest x-ray in the a.m. and will continue to monitor closely. 09/14/2024 Patient is seen in follow-up today currently more awake and mentation is more appropriate today. Patient remains on Airvo at 45/45 FiO2. Pulmonary and infectious disease following and patient is maintained on DuoNeb treatments and has transition to oral prednisone. Procalcitonin was low and antibiotics have been discontinued with infectious disease following being closely monitored off antibiotic therapy. Plan is for patient to return to [facility] on discharge once respiratory status improves. Review of systems: Constitutional: No reports of fatigue, fever, or chills Cardiovascular: No reports of chest pain or palpitations Respiratory: reports of shortness of breath with exertion although no worse GI: No reports of nausea, no reports of vomiting, no diarrhea : No reports of dysuria or retention Neurovascular: reports of generalized weakness All medications have been reviewed PHYSICAL EXAMINATION: GENERAL: The patient is alert and oriented x 12. Baseline. well developed, elderly appearing, morbidly obese, ill-appearing HEENT: Pupils are round and equally reacting to light. EOMI. no scleral icterus. No conjunctival pallor. Normocephalic, atraumatic. No pharyngeal erythema. No thyromegaly. CARDIOVASCULAR: S1 and S2 muffled PULMONARY: diminished breath sounds bilaterally with some faint expiratory wheezing and rhonchi noted. ABDOMEN: soft. Nontender on exam. obese. non-distended, normoactive bowel sounds. No palpable organomegaly. MUSCULOSKELETAL: No joint swelling or deformity. EXTREMITIES: No cyanosis, clubbing, or pedal edema. NEUROLOGICAL: Gross neurological examination did not reveal any focal deficits. Diffuse weakness SKIN: No rashes. Assessment: Acute bilateral pneumonia, possibly gram-negative versus healthcare associated pneumonia versus aspiration pneumonia Chronic obstructive pulmonary disease, acute exacerbation Acute on chronic hypoxic respiratory failure secondary above Hypercarbia Diabetes mellitus, type II Morbid obesity with a BMI of 44.6 Hypertension Hyperlipidemia GI prophylaxis DVT prophylaxis Full code Plan: Recommend to continue with current medications and management with pulmonary and infectious disease following. Patient is maintained on Airvo currently 4545 and weaning as tolerated. Patient chronically wears oxygen outpatient and would probably benefit from BiPAP although unsure if patient will keep the mask on. Per nursing staff attempting to wean although patient desats very quickly. Patient being followed by pulmonary maintained on [id number] DuoNeb treatments and has been transitioned to a Medrol Dosepak Continue monitoring Accu-Cheks before meals and at bedtime and will adjust insulins accordingly Patient was evaluated by psychiatry making recommendations to medications Will discuss further with consultations regarding discharge planning. Antibiotics were discontinued by pulmonary with infectious disease following and being closely monitored off antibiotic therapy. Urine culture showing Arminda Due to multiple complex medical issues, overall prognosis is guarded The impression and plan of care has been dictated by Shonda Junior, nurse practitioner as directed. Dr. Shay MD I have performed a history and examination and MDM of this patient, discussed the same with the dictator, and agree with the dictator's assessment and plan as written ,documented as a scribe. Based on total visit time, I have performed more than 50% of the visit. Any additional findings or plans will be noted. Objective - Vital Signs Vital signs: Vital Signs Temp 98.6 F 09/14/24 15:12 Pulse 67 09/14/24 23:26 Resp 18 09/15/24 01:43 BP 120/68 09/14/24 23:26 Pulse Ox 94 L 09/15/24 03:37 FiO2 45 09/15/24 03:37 Intake & Output 09/14/24 09/14/24 09/15/24 06:59 18:59 06:59 Intake Total 540 Output Total 475 3050 Balance -475 2510 Intake: Oral 540 Output: Urine 475 3050 Other: Voiding Method External Catheter External Catheter External Catheter # Bowel Movements 1 1 - Labs CBC & Chem 7: 09/13/24 06:15 09/13/24 06:15 Labs: Abnormal Lab Results - Last 24 Hours (Table) 09/14/24 09/14/24 09/14/24 Range/Units 08:06 11:18 16:12 POC Glucose (mg/dL) 345 H 154 H 175 H (70-110) mg/dL 09/14/24 Range/Units 20:00 POC Glucose (mg/dL) 159 H (70-110) mg/dL Microbiology - Last 24 Hours (Table) 09/09/24 13:05 Blood Culture - Final Blood
[2024-09-15 05:49] LABS: Glucose,Whole Blood 104 mg/dL (70-110)
[2024-09-15] MEDS ORDERED: ZINC OXIDE PASTE (Z-GUARD) 1 APPLIC TOPICAL PRN (06:44)
[2024-09-15 06:57] LABS: Basophils % (A) 0 %; Eosinophils # (A) 0.1 k/uL (0-0.7); Eosinophils % (A) 1 %; HCT 37.1 % (34.0-46.0); HGB 11.5 gm/dL (11.4-16.0); Hypochromasia Marked; Lymphocytes # (A) 1.6 k/uL (1.0-4.8); Lymphocytes % (A) 21 %; MCHC 31.1 g/dL (31.0-37.0); MCV 93.3 fL (80.0-100.0); Mean Platelet Volume 7.7; Monocytes # (A) 0.6 k/uL (0-1.0); Monocytes % (A) 8 %; Neutrophils # (A) 5.2 k/uL (1.3-7.7); Neutrophils % (A) 69 %; Platelet Count 201 k/uL (150-450); RBC 3.97 m/uL (3.80-5.40); RDW 15.1 % (11.5-15.5); WBC 7.6 k/uL (3.8-10.6)
[2024-09-15 11:17] LABS: Glucose,Whole Blood 110 mg/dL (70-110)
--- NOTE | 2024-09-15 12:34 | P.PN ---
Subjective Progress Note Date: 09/15/24 Principal diagnosis: COPD exacerbation. This is a 64-year-old female patient with a history of schizophrenia and resides in a local custodial. She also has a history of COPD, diabetes mellitus, hyperlipidemia, hypertension, home oxygen, chronic bilateral lower extremity edema, chronic tobacco dependence. She was brought into the emergency room yesterday with complaints of shortness of breath. Chest x-ray reveals bibasilar patchy airspace opacities with cardiomegaly and small left pleural effusion. White count 6.2. Hemoglobin 10.2. Platelets 232. Sodium 139. Potassium 4.5. Bicarb 39. BUN 23. Creatinine 0.56. Glucose 174. 60%. She is seen today in consultation on the selective care unit. She is currently sitting up in bed. She has pulled off her Airvo high flow oxygen, pulled off her electrodes and gown. She is placed back on the Airvo high flow oxygen at 60 L and 60% FiO2. O2 saturations in the 90s. Is on DuoNeb inhalations, IV Solu-Medrol, oral diuretics. Antibiotics in the form of Zosyn. The patient is seen today September 11, 2024 in follow-up on the regular medical floor. She is currently resting more comfortably in bed. Maintaining O2 saturations in the 90s on Airvo high flow oxygen at 60 L and 50% FiO2 with O2 saturations in the 90s. Axillary temperature 99.5. Hemodynamically stable. sprigger at the bedside. Worsening right lower lobe infiltrate. Mild infiltrate to the left lung base. Fullness of the right hilum. White count 7.1. Hemoglobin 10.0. Platelets 239. Sodium 140. Potassium 4.6. Bicarb 35. BUN 30. Creatinine 0.57. Glucose 199. She is continued on Zosyn. Remains on IV diuretics. Continued on Symbicort and DuoNeb inhalations along with Solu- Medrol. Anticoagulated with Xarelto. The patient is seen today September 12, 2024 in follow-up on the regular medical floor. She is currently sitting up in bed. Awake and alert in no acute distress. She remains on Airvo high flow oxygen at 60 L and 50% FiO2. She is a bit more calm and cooperative today. sprigger at the bedside. She is co ntinued on Zosyn. Remains on Symbicort, DuoNeb inhalations, Solu-Medrol. Remains on oral diuretics. Anticoagulated with Xarelto. White count 6.1. Hemoglobin 10.5. Platelets 262. Sodium 140. Potassium 4.6. Bicarb 40. BUN 38. Creatinine 0.66. Glucose 202. The patient is seen today September 13, 2024 in follow-up on the regular medical floor. She is currently resting in bed. Awake and alert in no acute distress. Currently calm and cooperative. She is on the Airvo high flow oxygen at 50 L and 45% FiO2. She continues on DuoNeb inhalations, Symbicort, Medrol Dosepak. White count 7.3. Hemoglobin 10.6. Platelets 222. Sodium 138. Potassium 4.5. Bicarb 36. BUN 38. Creatinine 0.63. Glucose 99. Procalcitonin was negative at 0.02. Zosyn is discontinued. She remains on oral diuretics. Progress note dated September 14, 2024. 64-year-old female seen today in room 378. The patient appears to be doing about the same. She continues on Airvo, with settings of 40 L/min, and an FiO2 of 40%. She is not receiving any IV fluids. She appears to be awake and alert. No acute distress. She is laying in bed. No new laboratory data today other than a glucose of 154. Chest x-ray shows patchy infiltrate, right infrahilar region. In addition, there is increased density, left lower lobe. Procalcitonin level from September 10, was 0.02. Progress note dated September 15, 2024. 64-year-old female again seen in room 378. The patient remains on Airvo, 40 L/min, with an FiO2 of 40%. She is getting saline at 20 cc an hour. She is laying flat in bed. She is in no acute distress. She is awake and alert. Current laboratory data includes a white count 4.6, hemoglobin 10.5, hematocrit 32, and platelet count 65,000. Sodium 134, potassium 3.3, chlorides 100, CO2 31, BUN 14, creatinine 0.70. Ammonia level 75. Glucose is 115. Urine was positive for Klebsiella pneumoniae. Objective - Vital Signs Vital signs: Vital Signs Temp 97.7 F 09/15/24 09:15 Pulse 66 09/15/24 12:01 Resp 18 09/15/24 12:01 BP 126/65 09/15/24 12:00 Pulse Ox 94 L 09/15/24 12:00 FiO2 40 09/15/24 11:52 Intake & Output 09/14/24 09/15/24 09/15/24 18:59 06:59 18:59 Intake Total 540 368 Output Total 3050 450 Balance -2510 -450 368 Weight 128.6 kg Intake: IV 10 Invasive Line 2 10 Oral 540 358 Output: Urine 3050 450 Other: Voiding Method External Catheter External Catheter External Catheter # Voids 1 # Bowel Movements 1 1 2 - Exam No acute distress, oriented 3. Currently on Airvo. HEENT examination is grossly unremarkable. Mucous membranes are moist. No oral lesions. Neck supple. Full range of motion. No adenopathy thyromegaly or neck vein distention. Cardiovascular examination reveals regular rhythm rate. S1-S2 normal. No S3 or S4. Soft systolic murmur noted. Lungs reveal bilateral expiratory and inspiratory rhonchi. No wheezes or crackles. Abdomen soft bowel sounds are heard. No masses or tenderness. Extremities are intact. No cyanosis or clubbing. Mild edema noted. Skin is without rash or lesion. Neurologic examination is brief but nonfocal. - Labs CBC & Chem 7: 09/15/24 06:26 09/13/24 06:15 Labs: Abnormal Lab Results - Last 24 Hours (Table) 09/14/24 09/14/24 Range/Units 16:12 20:00 POC Glucose (mg/dL) 175 H 159 H (70-110) mg/dL Microbiology - Last 24 Hours (Table) 09/09/24 13:05 Blood Culture - Final Blood Assessment and Plan Assessment: Acute hypoxemic respiratory failure secondary to suspected healthcare acquired versus aspiration pneumonia versus diastolic congestive heart failure. Acute exacerbation of chronic obstructive pulmonary disease. Klebsiella pneumoniae urinary tract infection. History of chronic tobacco dependence. History of schizophrenia. Diabetes mellitus, type II. History of seizures. Chronic lower extremity edema. Hypertension. Hyperlipidemia. [facility] resident. Plan: Plan dated September 14, 2024. The patient is seen today in room 378. The patient remains on Airvo, with settings of 40 L/min, and an FiO2 of 40%. Labs, x-rays, and all medications are reviewed. The patient is currently not on any antibiotics. Her procalcitonin level was 0.02. She continues on breathing treatments, and Symbicort. We will continue to follow. Prognosis is guarded. Plan dated September 15, 2024. The patient is seen again in room 378. The patient remains on Airvo, at 40 L /min with an FiO2 of 40%. She is getting saline at 20 cc an hour. Labs, x- rays, medications are reviewed. Her urine was positive for Klebsiella pneumoniae. The patient continues on a Medrol Dosepak. In addition, the patient continues on updrafts, with albuterol sulfate and Pratropium bromide. Labs, x-rays, and medications are reviewed. We will continue to follow. The patient should be transitioned to high flow nasal cannula. Time with Patient: Less than 30
[2024-09-15] MEDS ORDERED: NYSTATIN 100,000 UNIT/GM POWD 15 GM TOPICAL PRN (12:38)
[2024-09-15 16:05] LABS: Glucose,Whole Blood 192 mg/dL (70-110)
[2024-09-15 20:08] LABS: Glucose,Whole Blood 162 mg/dL (70-110)
[2024-09-15] MEDS: LOPERAMIDE 2 MG CAP PO PRN (21:02)
--- NOTE | 2024-09-16 05:28 | PN ---
PROGRESS NOTE DATE OF SERVICE: 09/15/2024 SUBJECTIVE: This is a 64-year-old woman, who was admitted with bilateral pneumonia, has significant shortness of breath also. The patient is transitioned into nasal cannula at this time. The most recent chest x-ray showed some improvement. OBJECTIVE: VITAL SIGNS: Pulse is 87, blood pressure 126/60, respirations 18. CHEST: A few scattered rhonchi and crackles. ABDOMEN: Soft. NERVOUS SYSTEM: Nonfocal. LABORATORY DATA: Reviewed. ASSESSMENT: 1. Bilateral pneumonia possibly gram-negative versus healthcare-associated pneumonia versus aspiration pneumonia. 2. Chronic obstructive pulmonary disease acute exacerbation. 3. Acute on chronic hypoxic respiratory failure. 4. Hypercarbia. 5. Diabetes mellitus, type 2. 6. Morbid obesity. 7. Multiple complex medical issues. RECOMMENDATIONS: Recommend to continue current medications. Continue symptomatic treatment. Continue with nasal cannula. We will recommend repeat labs. Increase ambulation. PT/OT evaluation, possible ECF rehab in the next 24 to 48 hours. MMODL / IJN: [id number] /
[2024-09-16 06:12] LABS: Glucose,Whole Blood 130 mg/dL (70-110)
[2024-09-16 08:14] LABS: Basophils % (A) 0 %; Eosinophils # (A) 0.1 k/uL (0-0.7); Eosinophils % (A) 1 %; HCT 35.1 % (34.0-46.0); HGB 11.1 gm/dL (11.4-16.0); Hypochromasia Marked; Lymphocytes # (A) 1.2 k/uL (1.0-4.8); Lymphocytes % (A) 12 %; MCH 29.4 pg (25.0-35.0); MCHC 31.6 g/dL (31.0-37.0); MCV 92.9 fL (80.0-100.0); Mean Platelet Volume 7.5; Monocytes # (A) 0.6 k/uL (0-1.0); Monocytes % (A) 6 %; Neutrophils # (A) 8.1 k/uL (1.3-7.7); Neutrophils % (A) 80 %; Platelet Count 230 k/uL (150-450); RBC 3.78 m/uL (3.80-5.40); RDW 15.1 % (11.5-15.5); WBC 10.1 k/uL (3.8-10.6)
[2024-09-16 08:21] LABS: African American GFR (CKD) >90 (>60 ml/min/1.73 sqM); Blood Urea Nitrogen 18 mg/dL (7-17); Calcium 8.5 mg/dL (8.4-10.2); Chloride 97 mmol/L (98-107); Glucose 118 mg/dL (74-99); Non-African American GFR(CKD) >90 (>60 ml/min/1.73 sqM); Sodium 138 mmol/L (137-145)
[2024-09-16 08:28] LABS: Anion Gap 4 mmol/L
[2024-09-16 08:33] LABS: Carbon Dioxide 37 mmol/L (22-30)
--- NOTE | 2024-09-16 08:52 | P.PN ---
Subjective Progress Note Date: 09/15/24 Principal diagnosis: Reason for follow-up is tracheobronchitis and a question of pneumonia Patient is a 64-year-old female with a past medical history significant for diabetes mellitus hypertension hyperlipidemia COPD in this patient who is a group home resident patient has been brought into the hospital from the local group home for evaluation of increasing shortness of breath, patient has been diagnosed with a COPD exacerbation concerning for tracheobronchitis/pneumonia with possible UTI prompted this consultation. On today's evaluation that is 09/15/2024, patient has been afebrile, patient is more awake and alert and is breathing comfortably and is currently on 5 L nasal cannula oxygen denies chest pain or worsening cough no vomiting or diarrhea repo rted. Patient white count 7.6 blood culture has been negative Objective - Vital Signs Vital signs: Vital Signs Temp 97.7 F 09/15/24 09:15 Pulse 77 09/15/24 15:07 Resp 16 09/15/24 15:07 BP 126/65 09/15/24 12:00 Pulse Ox 95 09/15/24 14:59 FiO2 40 09/15/24 11:52 Intake & Output 09/14/24 09/15/24 09/15/24 18:59 06:59 18:59 Intake Total 540 368 Output Total 3050 450 Balance -2510 -450 368 Weight 128.6 kg Intake: IV 10 Invasive Line 2 10 Oral 540 358 Output: Urine 3050 450 Other: Voiding Method External Catheter External Catheter External Catheter # Voids 1 # Bowel Movements 1 1 2 - Exam GENERAL DESCRIPTION: Middle-age female lying in bed in no distress RESPIRATORY SYSTEM: Unlabored breathing , decreased intensity breath sounds, no wheeze s HEART: S1 S2 regular rate and rhythm , ABDOMEN: Soft , no tenderness EXTREMITIES: No edema feet - Labs CBC & Chem 7: 09/16/24 07:50 09/16/24 07:50 Labs: Abnormal Lab Results - Last 24 Hours (Table) 09/14/24 09/14/24 Range/Units 16:12 20:00 POC Glucose (mg/dL) 175 H 159 H (70-110) mg/dL Microbiology - Last 24 Hours (Table) 09/09/24 13:05 Blood Culture - Final Blood Assessment and Plan (1) Pneumonia Current Visit: No Status: Acute Code(s): J18.9 - PNEUMONIA, UNSPECIFIED ORGANISM SNOMED Code(s): 194788902 Plan: 1patient presenting to the hospital for evaluation of increasing shortness of breath which is likely multifactorial with a question of possible fluid overload versus pneumonia less likely bilateral excluded patient not running any fever did have mildly elevated white count also noted to have significantly cloudy urine however UA did not show any evidence of pyuria 2--patient did have some improvement in respiratory symptoms Zosyn has been di scontinued currently being monitored closely off antibiotic therapy 3-patient did have urine culture with yeast, however no urinary symptom and UA was not significantly, no need for Diflucan Dictation was produced using [email or web address] dictation software. please excuse any grammatical, word or spelling errors. Time with Patient: Less than 30
[2024-09-16 09:21] VITALS: BMI 40.6
[2024-09-16 11:40] LABS: Glucose,Whole Blood 177 mg/dL (70-110)
[2024-09-16] MEDS: ACETAMINOPHEN TAB 325 MG TAB PO PRN (12:09)
--- NOTE | 2024-09-16 12:44 | P.PN ---
Subjective Progress Note Date: 09/16/24 Principal diagnosis: Reason for follow-up is tracheobronchitis and a question of pneumonia Patient is a 64-year-old female with a past medical history significant for diabetes mellitus hypertension hyperlipidemia COPD in this patient who is a long term resident patient has been brought into the hospital from the local long term for evaluation of increasing shortness of breath, patient has been diagnosed with a COPD exacerbation concerning for tracheobronchitis/pneumonia with possible UTI prompted this consultation. On today's evaluation that is 09/16/2024, Patient is afebrile this morning patient denies having any chest pain shortness of breath or cough, the patient is currently on 5 L current oxygen, patient denies any abdominal pain no diarrhea no nausea no vomiting. White count is 10.1, creatinine 0.5 point Objective - Vital Signs Vital signs: Vital Signs Temp 97.9 F 09/16/24 10:49 Pulse 72 09/16/24 12:35 Resp 21 09/16/24 10:49 BP 111/67 09/16/24 10:49 Pulse Ox 93 L 09/16/24 10:49 FiO2 40 09/15/24 11:52 Intake & Output 09/15/24 09/16/24 09/16/24 18:59 06:59 18:59 Intake Total 726 260 20 Balance 726 260 20 Weight 125 kg 125 kg Intake: IV 10 20 20 Invasive Line 2 10 20 20 Oral 716 240 Other: Voiding Method External Catheter Diaper Diaper Incontinent Incontinent # Voids 2 1 4 # Bowel Movements 1 4 1 - Exam GENERAL DESCRIPTION: Middle-age female lying in bed in no distress RESPIRATORY SYSTEM: Unlabored breathing , decreased intensity breath sounds, no wheeze s HEART: S1 S2 regular rate and rhythm , ABDOMEN: Soft , no tenderness EXTREMITIES: No edema feet - Labs CBC & Chem 7: 09/16/24 07:50 09/16/24 07:50 Labs: Abnormal Lab Results - Last 24 Hours (Table) 09/15/24 09/15/24 09/16/24 Range/Units 16:03 20:06 06:11 RBC (3.80-5.40) m/uL Hgb (11.4-16.0) gm/dL Neutrophils # (1.3-7.7) k/uL Chloride (98-107) mmol/L Carbon Dioxide (22-30) mmol/L BUN (7-17) mg/dL Creatinine (0.52-1.04) mg/dL Glucose (74-99) mg/dL POC Glucose (mg/dL) 192 H 162 H 130 H (70-110) mg/dL 09/16/24 09/16/24 09/16/24 Range/Units 07:50 07:50 11:38 RBC 3.78 L (3.80-5.40) m/uL Hgb 11.1 L (11.4-16.0) gm/dL Neutrophils # 8.1 H (1.3-7.7) k/uL Chloride 97 L (98-107) mmol/L Carbon Dioxide 37 H (22-30) mmol/L BUN 18 H (7-17) mg/dL Creatinine 0.51 L (0.52-1.04) mg/dL Glucose 118 H (74-99) mg/dL POC Glucose (mg/dL) 177 H (70-110) mg/dL Microbiology - Last 24 Hours (Table) 09/10/24 15:53 Blood Culture - Final Blood Assessment and Plan (1) Pneumonia Current Visit: No Status: Acute Code(s): J18.9 - PNEUMONIA, UNSPECIFIED ORGANISM SNOMED Code(s): 608118557 Plan: 1patient presenting to the hospital for evaluation of increasing shortness of breath which is likely multifactorial with a question of possible fluid overload versus pneumonia less likely bilateral excluded patient not running any fever did have mildly elevated white count also noted to have significantly cloudy urine however UA did not show any evidence of pyuria 2--patient did have some improvement in respiratory symptoms Zosyn has been discontinued currently being monitored closely off antibiotic therapy 3-patient did have urine culture with yeast, however no urinary symptom and UA was not significantly, patient is doing well off antifungal therapy and will be monitored closely Dictation was produced using [employer] dictation software. please excuse any grammatical, word or spelling errors. Time with Patient: Less than 30
--- NOTE | 2024-09-16 13:54 | P.PN ---
Subjective Progress Note Date: 09/16/24 Principal diagnosis: COPD exacerbation. This is a 64-year-old female patient with a history of schizophrenia and resides in a local group home. She also has a history of COPD, diabetes mellitus, hyperlipidemia, hypertension, home oxygen, chronic bilateral lower extremity edema, chronic tobacco dependence. She was brought into the emergency room yesterday with complaints of shortness of breath. Chest x-ray reveals bibasilar patchy airspace opacities with cardiomegaly and small left pleural effusion. White count 6.2. Hemoglobin 10.2. Platelets 232. Sodium 139. Potassium 4.5. Bicarb 39. BUN 23. Creatinine 0.56. Glucose 174. 60%. She is seen today in consultation on the selective care unit. She is currently sitting up in bed. She has pulled off her Airvo high flow oxygen, pulled off her electrodes and gown. She is placed back on the Airvo high flow oxygen at 60 L and 60% FiO2. O2 saturations in the 90s. Is on DuoNeb inhalations, IV Solu-Medrol, oral diuretics. Antibiotics in the form of Zosyn. The patient is seen today September 11, 2024 in follow-up on the regular medical floor. She is currently resting more comfortably in bed. Maintaining O2 saturations in the 90s on Airvo high flow oxygen at 60 L and 50% FiO2 with O2 saturations in the 90s. Axillary temperature 99.5. Hemodynamically stable. flat drier at the bedside. Worsening right lower lobe infiltrate. Mild infiltrate to the left lung base. Fullness of the right hilum. White count 7.1. Hemoglobin 10.0. Platelets 239. Sodium 140. Potassium 4.6. Bicarb 35. BUN 30. Creatinine 0.57. Glucose 199. She is continued on Zosyn. Remains on IV diuretics. Continued on Symbicort and DuoNeb inhalations along with Solu- Medrol. Anticoagulated with Xarelto. The patient is seen today September 12, 2024 in follow-up on the regular medical floor. She is currently sitting up in bed. Awake and alert in no acute distress. She remains on Airvo high flow oxygen at 60 L and 50% FiO2. She is a bit more calm and cooperative today. flat drier at the bedside. She is co ntinued on Zosyn. Remains on Symbicort, DuoNeb inhalations, Solu-Medrol. Remains on oral diuretics. Anticoagulated with Xarelto. White count 6.1. Hemoglobin 10.5. Platelets 262. Sodium 140. Potassium 4.6. Bicarb 40. BUN 38. Creatinine 0.66. Glucose 202. The patient is seen today September 13, 2024 in follow-up on the regular medical floor. She is currently resting in bed. Awake and alert in no acute distress. Currently calm and cooperative. She is on the Airvo high flow oxygen at 50 L and 45% FiO2. She continues on DuoNeb inhalations, Symbicort, Medrol Dosepak. White count 7.3. Hemoglobin 10.6. Platelets 222. Sodium 138. Potassium 4.5. Bicarb 36. BUN 38. Creatinine 0.63. Glucose 99. Procalcitonin was negative at 0.02. Zosyn is discontinued. She remains on oral diuretics. Progress note dated September 14, 2024. 64-year-old female seen today in room 378. The patient appears to be doing about the same. She continues on Airvo, with settings of 40 L/min, and an FiO2 of 40%. She is not receiving any IV fluids. She appears to be awake and alert. No acute distress. She is laying in bed. No new laboratory data today other than a glucose of 154. Chest x-ray shows patchy infiltrate, right infrahilar region. In addition, there is increased density, left lower lobe. Procalcitonin level from September 10, was 0.02. Progress note dated September 15, 2024. 64-year-old female again seen in room 378. The patient remains on Airvo, 40 L/min, with an FiO2 of 40%. She is getting saline at 20 cc an hour. She is laying flat in bed. She is in no acute distress. She is awake and alert. Current laboratory data includes a white count 4.6, hemoglobin 10.5, hematocrit 32, and platelet count 65,000. Sodium 134, potassium 3.3, chlorides 100, CO2 31, BUN 14, creatinine 0.70. Ammonia level 75. Glucose is 115. Urine was positive for Klebsiella pneumoniae. Progress note dated September 16, 2024. 64-year-old female seen today in room 378. Currently, the patient is on 4 L nasal cannula. She is getting saline at 20 cc an hour, that can be discontinued . The patient is awake and alert. No respiratory distress. She would like her IV to be stopped. Current labs include a white count 10.1, hemoglobin 11.1, macro 35.1, platelet count 230,000. Sodium 138, potassium 4, chloride 97, CO2 37, BUN 18, creatinine 0.51. Glucose is 177. Calcium is 8.5. Objective - Vital Signs Vital signs: Vital Signs Temp 97.9 F 09/16/24 10:49 Pulse 72 09/16/24 12:35 Resp 21 09/16/24 10:49 BP 111/67 09/16/24 10:49 Pulse Ox 93 L 09/16/24 10:49 FiO2 40 09/15/24 11:52 Intake & Output 09/15/24 09/16/24 09/16/24 18:59 06:59 18:59 Intake Total 726 260 20 Balance 726 260 20 Weight 125 kg 125 kg Intake: IV 10 20 20 Invasive Line 2 10 20 20 Oral 716 240 Other: Voiding Method External Catheter Diaper Diaper Incontinent Incontinent # Voids 2 1 4 # Bowel Movements 1 4 1 - Exam No acute distress, oriented 3. The patient is currently on 4 L nasal cannula. HEENT examination is grossly unremarkable. Mucous membranes are moist. No oral lesions. Neck supple. Full range of motion. No adenopathy thyromegaly or neck vein distention. Cardiovascular examination reveals regular rhythm rate. S1-S2 normal. No S3 or S4. Soft systolic murmur noted. Lungs reveal bilateral expiratory and inspiratory rhonchi. No wheezes or crackles. Abdomen soft bowel sounds are heard. No masses or tenderness. Extremities are intact. No cyanosis or clubbing. Mild edema noted. Skin is without rash or lesion. Neurologic examination is brief but nonfocal. - Labs CBC & Chem 7: 09/16/24 07:50 09/16/24 07:50 Labs: Abnormal Lab Results - Last 24 Hours (Table) 09/15/24 09/15/24 09/16/24 Range/Units 16:03 20:06 06:11 RBC (3.80-5.40) m/uL Hgb (11.4-16.0) gm/dL Neutrophils # (1.3-7.7) k/uL Chloride (98-107) mmol/L Carbon Dioxide (22-30) mmol/L BUN (7-17) mg/dL Creatinine (0.52-1.04) mg/dL Glucose (74-99) mg/dL POC Glucose (mg/dL) 192 H 162 H 130 H (70-110) mg/dL 09/16/24 09/16/24 09/16/24 Range/Units 07:50 07:50 11:38 RBC 3.78 L (3.80-5.40) m/uL Hgb 11.1 L (11.4-16.0) gm/dL Neutrophils # 8.1 H (1.3-7.7) k/uL Chloride 97 L (98-107) mmol/L Carbon Dioxide 37 H (22-30) mmol/L BUN 18 H (7-17) mg/dL Creatinine 0.51 L (0.52-1.04) mg/dL Glucose 118 H (74-99) mg/dL POC Glucose (mg/dL) 177 H (70-110) mg/dL Microbiology - Last 24 Hours (Table) 09/10/24 15:53 Blood Culture - Final Blood Assessment and Plan Assessment: Acute hypoxemic respiratory failure secondary to suspected healthcare acquired versus aspiration pneumonia versus diastolic congestive heart failure. Acute exacerbation of chronic obstructive pulmonary disease. Klebsiella pneumoniae urinary tract infection. History of chronic tobacco dependence. History of schizophrenia. Diabetes mellitus, type II. History of seizures. Chronic lower extremity edema. Hypertension. Hyperlipidemia. [facility] resident. Plan: Plan dated September 14, 2024. The patient is seen today in room 378. The patient remains on Airvo, with settings of 40 L/min, and an FiO2 of 40%. Labs, x-rays, and all medications are reviewed. The patient is currently not on any antibiotics. Her procalcitonin level was 0.02. She continues on breathing treatments, and Symbicort. We will continue to follow. Prognosis is guarded. Plan dated September 15, 2024. The patient is seen again in room 378. The patient remains on Airvo, at 40 L/min with an FiO2 of 40%. She is getting saline at 20 cc an hour. Labs, x- rays, medications are reviewed. Her urine was positive for Klebsiella pneumoniae. The patient continues on a Medrol Dosepak. In addition, the patient continues on updrafts, with albuterol sulfate and Pratropium bromide. Labs, x-rays, and medications are reviewed. We will continue to follow. The patient should be transitioned to high flow nasal cannula. Plan dated September 16, 2024. The patient is seen today in room 378. The patient was on Airvo yesterday, and has been titrated down to 4 L nasal cannula. Labs, x-rays, medications are revi ewed. The patient is getting saline IV at 20 cc an hour. That can be discontinued. Labs, x-rays, and all medications are reviewed. We will continue to follow make recommendations along the way. Urine, was positive for yeast species. Blood cultures were negative. Prognosis is guarded. We will continue to follow. Time with Patient: Less than 30
[2024-09-16 16:47] LABS: Glucose,Whole Blood 168 mg/dL (70-110)
[2024-09-16 20:03] LABS: Glucose,Whole Blood 140 mg/dL (70-110)
--- NOTE | 2024-09-17 02:00 | PN ---
PROGRESS NOTE DATE OF SERVICE: 09/16/2024 SUBJECTIVE: This is a 64-year-old woman, who has a past medical history of bilateral pneumonia with possibly gram-negative healthcare-associated pneumonia, is being closely monitored. No chest pain. No palpitations. No fever. Chest x-ray showed bilateral lower lobe lesions. OBJECTIVE: VITAL SIGNS: Pulse is 77, blood pressure 111/67, respirations 20. HEENT: Conjunctivae normal. NECK: No JVD. CARDIOVASCULAR: S1, S2. RESPIRATIONS: Breath sounds diminished at the bases. A few scattered rhonchi. ABDOMEN: Soft. NERVOUS SYSTEM: Nonfocal. LABORATORY DATA: Reviewed. ASSESSMENT: 1. Acute bilateral pneumonia, possibly gram-negative versus healthcare-associated pneumonia versus aspiration pneumonia. 2. Chronic obstructive pulmonary disease acute exacerbation. 3. Acute on chronic hypoxic respiratory failure. 4. Hypercarbia. 5. Diabetes mellitus, type 2. 6. Morbid obesity. 7. Multiple complex medical issues. RECOMMENDATIONS AND DISCUSSION: I recommend to continue current management and continue symptomatic treatment. Otherwise, at this time, I would recommend closely monitor. Repeat labs. Guarded prognosis. Further recommendations to follow. Possible discharge within the next 24 hours if the patient is stable. MMODL / IJN: [id number] /
[2024-09-17 05:47] LABS: Glucose,Whole Blood 108 mg/dL (70-110)
[2024-09-17 08:51] LABS: ALT 13 U/L (4-34); AST 24 U/L (14-36); African American GFR (CKD) >90 (>60 ml/min/1.73 sqM); Albumin 3.3 g/dL (3.5-5.0); Alkaline Phosphatase 93 U/L (38-126); Blood Urea Nitrogen 24 mg/dL (7-17); Calcium 8.4 mg/dL (8.4-10.2); Chloride 98 mmol/L (98-107); Glucose 101 mg/dL (74-99); Non-African American GFR(CKD) >90 (>60 ml/min/1.73 sqM); Sodium 140 mmol/L (137-145); Total Bilirubin 0.4 mg/dL (0.2-1.3); Total Protein 5.4 g/dL (6.3-8.2)
[2024-09-17 08:52] LABS: Basophils % (A) 0 %; Eosinophils % (A) 0 %; HCT 34.9 % (34.0-46.0); HGB 10.9 gm/dL (11.4-16.0); Hypochromasia Marked; Lymphocytes # (A) 1.9 k/uL (1.0-4.8); Lymphocytes % (A) 20 %; MCHC 31.3 g/dL (31.0-37.0); MCV 92.7 fL (80.0-100.0); Mean Platelet Volume 7.9; Monocytes # (A) 0.6 k/uL (0-1.0); Monocytes % (A) 7 %; Neutrophils # (A) 6.8 k/uL (1.3-7.7); Neutrophils % (A) 72 %; Platelet Count 243 k/uL (150-450); RBC 3.76 m/uL (3.80-5.40); RDW 15.3 % (11.5-15.5); WBC 9.4 k/uL (3.8-10.6)
[2024-09-17 08:59] LABS: Anion Gap 7 mmol/L; Carbon Dioxide 35 mmol/L (22-30)
[2024-09-17 11:20] LABS: Glucose,Whole Blood 236 mg/dL (70-110)
--- NOTE | 2024-09-17 12:21 | P.PN ---
Subjective Progress Note Date: 09/17/24 Principal diagnosis: COPD exacerbation. This is a 64-year-old female patient with a history of schizophrenia and resides in a local [facility]. She also has a history of COPD, diabetes mellitus, hyperlipidemia, hypertension, home oxygen, chronic bilateral lower extremity edema, chronic tobacco dependence. She was brought into the emergency room yesterday with complaints of shortness of breath. Chest x-ray reveals bibasilar patchy airspace opacities with cardiomegaly and small left pleural effusion. White count 6.2. Hemoglobin 10.2. Platelets 232. Sodium 139. Potassium 4.5. Bicarb 39. BUN 23. Creatinine 0.56. Glucose 174. 60%. She is seen today in consultation on the selective care unit. She is currently sitting up in bed. She has pulled off her Airvo high flow oxygen, pulled off her electrodes and gown. She is placed back on the Airvo high flow oxygen at 60 L and 60% FiO2. O2 saturations in the 90s. Is on DuoNeb inhalations, IV Solu-Medrol, oral diuretics. Antibiotics in the form of Zosyn. The patient is seen today September 11, 2024 in follow-up on the regular medical floor. She is currently resting more comfortably in bed. Maintaining O2 saturations in the 90s on Airvo high flow oxygen at 60 L and 50% FiO2 with O2 saturations in the 90s. Axillary temperature 99.5. Hemodynamically stable. certified nursing attendant at the bedside. Worsening right lower lobe infiltrate. Mild infiltrate to the left lung base. Fullness of the right hilum. White count 7.1. Hemoglobin 10.0. Platelets 239. Sodium 140. Potassium 4.6. Bicarb 35. BUN 30. Creatinine 0.57. Glucose 199. She is continued on Zosyn. Remains on IV diuretics. Continued on Symbicort and DuoNeb inhalations along with Solu- Medrol. Anticoagulated with Xarelto. The patient is seen today September 12, 2024 in follow-up on the regular medical floor. She is currently sitting up in bed. Awake and alert in no acute distress. She remains on Airvo high flow oxygen at 60 L and 50% FiO2. She is a bit more calm and cooperative today. certified nursing attendant at the bedside. She is co ntinued on Zosyn. Remains on Symbicort, DuoNeb inhalations, Solu-Medrol. Remains on oral diuretics. Anticoagulated with Xarelto. White count 6.1. Hemoglobin 10.5. Platelets 262. Sodium 140. Potassium 4.6. Bicarb 40. BUN 38. Creatinine 0.66. Glucose 202. The patient is seen today September 13, 2024 in follow-up on the regular medical floor. She is currently resting in bed. Awake and alert in no acute distress. Currently calm and cooperative. She is on the Airvo high flow oxygen at 50 L and 45% FiO2. She continues on DuoNeb inhalations, Symbicort, Medrol Dosepak. White count 7.3. Hemoglobin 10.6. Platelets 222. Sodium 138. Potassium 4.5. Bicarb 36. BUN 38. Creatinine 0.63. Glucose 99. Procalcitonin was negative at 0.02. Zosyn is discontinued. She remains on oral diuretics. Progress note dated September 14, 2024. 64-year-old female seen today in room 378. The patient appears to be doing about the same. She continues on Airvo, with settings of 40 L/min, and an FiO2 of 40%. She is not receiving any IV fluids. She appears to be awake and alert. No acute distress. She is laying in bed. No new laboratory data today other than a glucose of 154. Chest x-ray shows patchy infiltrate, right infrahilar region. In addition, there is increased density, left lower lobe. Procalcitonin level from September 10, was 0.02. Progress note dated September 15, 2024. 64-year-old female again seen in room 378. The patient remains on Airvo, 40 L/min, with an FiO2 of 40%. She is getting saline at 20 cc an hour. She is laying flat in bed. She is in no acute distress. She is awake and alert. Current laboratory data includes a white count 4.6, hemoglobin 10.5, hematocrit 32, and platelet count 65,000. Sodium 134, potassium 3.3, chlorides 100, CO2 31, BUN 14, creatinine 0.70. Ammonia level 75. Glucose is 115. Urine was positive for Klebsiella pneumoniae. Progress note dated September 16, 2024. 64-year-old female seen today in room 378. Currently, the patient is on 4 L nasal cannula. She is getting saline at 20 cc an hour, that can be discontinued . The patient is awake and alert. No respiratory distress. She would like her IV to be stopped. Current labs include a white count 10.1, hemoglobin 11.1, macro 35.1, platelet count 230,000. Sodium 138, potassium 4, chloride 97, CO2 37, BUN 18, creatinine 0.51. Glucose is 177. Calcium is 8.5. Progress note dated September 17, 2024. 64-year-old female seen today in room 378. She continues on nasal O2 at 3 L. She is not receiving any IV fluids. She is awake and alert. She is not manifes ting any signs or symptoms of distress. Current labs are good a white count 9.4, hemoglobin 10.9, hematocrit 34.9, and a platelet count of 243,000. Sodium 140, potassium 4, chloride 98, CO2 35, BUN 24, creatinine 0.7. Glucose is 236. Albumin is 3.3. Objective - Vital Signs Vital signs: Vital Signs Temp 98.4 F 09/17/24 11:07 Pulse 80 09/17/24 11:07 Resp 18 09/17/24 11:07 BP 103/55 09/17/24 11:07 Pulse Ox 93 L 09/17/24 11:07 FiO2 40 09/15/24 11:52 Intake & Output 09/16/24 09/17/24 09/17/24 18:59 06:59 18:59 Intake Total 394 480 128 Output Total 200 Balance 394 280 128 Weight 125 kg 125 kg Intake: IV 40 10 Invasive Line 2 30 Invasive Line 3 10 10 Oral 354 [id number] 118 Output: Urine 200 Other: Voiding Method Diaper Diaper Diaper Incontinent Incontinent Incontinent # Voids 4 1 # Bowel Movements 1 - Exam No acute distress, oriented 3. The patient is currently on 3 L nasal cannula. HEENT examination is grossly unremarkable. Mucous membranes are moist. No oral lesions. Neck supple. Full range of motion. No adenopathy thyromegaly or neck vein distention. Cardiovascular examination reveals regular rhythm rate. S1-S2 normal. No S3 or S4. Soft systolic murmur noted. Lungs reveal bilateral expiratory and inspiratory rhonchi. No wheezes or crackles. Abdomen soft bowel sounds are heard. No masses or tenderness. Extremities are intact. No cyanosis or clubbing. Mild edema noted. Skin is without rash or lesion. Neurologic examination is brief but nonfocal. - Labs CBC & Chem 7: 09/17/24 07:45 09/17/24 07:45 Labs: Abnormal Lab Results - Last 24 Hours (Table) 09/16/24 09/16/24 09/17/24 Range/Units 16:45 20:00 07:45 RBC 3.76 L (3.80-5.40) m/uL Hgb 10.9 L (11.4-16.0) gm/dL Carbon Dioxide (22-30) mmol/L BUN (7-17) mg/dL Glucose (74-99) mg/dL POC Glucose (mg/dL) 168 H 140 H (70-110) mg/dL Total Protein (6.3-8.2) g/dL Albumin (3.5-5.0) g/dL 09/17/24 09/17/24 Range/Units 07:45 11:18 RBC (3.80-5.40) m/uL Hgb (11.4-16.0) gm/dL Carbon Dioxide 35 H (22-30) mmol/L BUN 24 H (7-17) mg/dL Glucose 101 H (74-99) mg/dL POC Glucose (mg/dL) 236 H (70-110) mg/dL Total Protein 5.4 L (6.3-8.2) g/dL Albumin 3.3 L (3.5-5.0) g/dL Assessment and Plan Assessment: Acute hypoxemic respiratory failure secondary to suspected healthcare acquired versus aspiration pneumonia versus diastolic congestive heart failure. Acute exacerbation of chronic obstructive pulmonary disease. Klebsiella pneumoniae urinary tract infection. History of chronic tobacco dependence. History of schizophrenia. Diabetes mellitus, type II. History of seizures. Chronic lower extremity edema. Hypertension. Hyperlipidemia. longterm resident. Plan: Plan dated September 14, 2024. The patient is seen today in room 378. The patient remains on Airvo, with settings of 40 L/min, and an FiO2 of 40%. Labs, x-rays, and all medications are reviewed. The patient is currently not on any antibiotics. Her procalcitonin level was 0.02. She continues on breathing treatments, and Symbicort. We will continue to follow. Prognosis is guarded. Plan dated September 15, 2024. The patient is seen again in room 378. The patient remains on Airvo, at 40 L/min with an FiO2 of 40%. She is getting saline at 20 cc an hour. Labs, x- rays, medications are reviewed. Her urine was positive for Klebsiella pneumoniae. The patient continues on a Medrol Dosepak. In addition, the patie nt continues on updrafts, with albuterol sulfate and Pratropium bromide. Labs, x-rays, and medications are reviewed. We will continue to follow. The patient should be transitioned to high flow nasal cannula. Plan dated September 16, 2024. The patient is seen today in room 378. The patient was on Airvo yesterday, and has been titrated down to 4 L nasal cannula. Labs, x-rays, medications are r eviewed. The patient is getting saline IV at 20 cc an hour. That can be discontinued. Labs, x-rays, and all medications are reviewed. We will continue to follow make recommendations along the way. Urine, was positive for yeast species. Blood cultures were negative. Prognosis is guarded. We will continue to follow. Plan dated September 17, 2024. The patient is seen today in room 378. The patient is clinically stable. She is not short of breath, or having any chest discomfort. She continues on 3 L. She is not on any IV fluids. Labs, x-rays, and all medications are reviewed. We will continue to follow make recommendations along the way. The patient's overall prognosis remains guarded. Time with Patient: Less than 30
--- NOTE | 2024-09-17 12:45 | P.PN ---
Subjective Progress Note Date: 09/17/24 Principal diagnosis: Reason for follow-up is tracheobronchitis and a question of pneumonia Patient is a 64-year-old female with a past medical history significant for diabetes mellitus hypertension hyperlipidemia COPD in this patient who is a [facility] resident patient has been brought into the hospital [facility] the local [facility] for evaluation of increasing shortness of breath, patient has been diagnosed with a COPD exacerbation concerning for tracheobronchitis/pneumonia with possible UTI prompted this consultation. On today's evaluation that is 09/17/2024,the patient denies any fever or any chills, patient is breathing comfortably on 4 L nasal cannula oxygen the patient denies chest pain shortness of breath and no significant cough, patient denies abdominal pain, no nausea vomiting or diarrhea. Patient complaining of some neck pain today. Patient white count is 9.4, creatinine 0.70 Objective - Vital Signs Vital signs: Vital Signs Temp 98.4 F 09/17/24 11:07 Pulse 80 09/17/24 11:07 Resp 18 09/17/24 11:07 BP 103/55 09/17/24 11:07 Pulse Ox 93 L 09/17/24 11:07 FiO2 40 09/15/24 11:52 Intake & Output 09/16/24 09/17/24 09/17/24 18:59 06:59 18:59 Intake Total 394 480 128 Output Total 200 Balance 394 280 128 Weight 125 kg 125 kg Intake: IV 40 10 Invasive Line 2 30 Invasive Line 3 10 10 Oral 354 480 118 Output: Urine 200 Other: Voiding Method Diaper Diaper Diaper Incontinent Incontinent Incontinent # Voids 4 1 # Bowel Movements 1 - Exam GENERAL DESCRIPTION: Middle-age female lying in bed in no distress RESPIRATORY SYSTEM: Unlabored breathing , decreased intensity breath sounds, no wheeze s HEART: S1 S2 regular rate and rhythm , ABDOMEN: Soft , no tenderness EXTREMITIES: No edema feet - Labs CBC & Chem 7: 09/17/24 07:45 09/17/24 07:45 Labs: Abnormal Lab Results - Last 24 Hours (Table) 09/16/24 09/16/24 09/17/24 Range/Units 16:45 20:00 07:45 RBC 3.76 L (3.80-5.40) m/uL Hgb 10.9 L (11.4-16.0) gm/dL Carbon Dioxide (22-30) mmol/L BUN (7-17) mg/dL Glucose (74-99) mg/dL POC Glucose (mg/dL) 168 H 140 H (70-110) mg/dL Total Protein (6.3-8.2) g/dL Albumin (3.5-5.0) g/dL 09/17/24 09/17/24 Range/Units 07:45 11:18 RBC (3.80-5.40) m/uL Hgb (11.4-16.0) gm/dL Carbon Dioxide 35 H (22-30) mmol/L BUN 24 H (7-17) mg/dL Glucose 101 H (74-99) mg/dL POC Glucose (mg/dL) 236 H (70-110) mg/dL Total Protein 5.4 L (6.3-8.2) g/dL Albumin 3.3 L (3.5-5.0) g/dL Assessment and Plan (1) Pneumonia Current Visit: No Status: Acute Code(s): J18.9 - PNEUMONIA, UNSPECIFIED ORGANISM SNOMED Code(s): 422864804 Plan: 1patient presenting to the hospital for evaluation of increasing shortness of breath which is likely multifactorial with a question of possible fluid overload versus pneumonia less likely bilateral excluded patient not running any fever did have mildly elevated white count also noted to have significantly cloudy urine however UA did not show any evidence of pyuria 2--patient did have some improvement in respiratory symptoms Zosyn has been discontinued currently being monitored closely off antibiotic therapy and seem to be doing well 3-patient did have urine culture with yeast, however no urinary symptom and UA was not significantly, no need for antifungal therapy at this point Dictation was produced using [employer] dictation software. please excuse any grammatical, word or spelling errors. Time with Patient: Less than 30
--- NOTE | 2024-09-17 16:13 | P.PN ---
Subjective Progress Note Date: 09/17/24 64-year-old female patient with a history of schizophrenia and resides in a local alf. She also has a history of COPD, diabetes mellitus, hyperlipidemia, hypertension, home oxygen, chronic bilateral lower extremity edema, chronic tobacco dependence. She was brought into the emergency room yest richy with complaints of shortness of breath. Chest x-ray reveals bibasilar patchy airspace opacities with cardiomegaly and small left pleural effusion. White count 6.2. Hemoglobin 10.2. Platelets 232. Sodium 139. Potassium 4.5. Bicarb 39. BUN 23. Creatinine 0.56. Glucose 174. 60%. She is seen today in consultation on the selective care unit. She is currently sitting up in bed. She has pulled off her Airvo high flow oxygen, pulled off her electrodes and gown. She is placed back on the Airvo high flow oxygen at 60 L and 60% FiO2. O2 saturations in the 90s. Is on DuoNeb inhalations, IV Solu-Medrol, oral diuretics. Antibiotics in the form of Zosyn. Objective - Vital Signs Vital signs: Vital Signs Temp 97.4 F L 09/17/24 07:00 Pulse 76 09/17/24 09:53 Resp 21 09/17/24 07:00 BP 115/73 09/17/24 07:00 Pulse Ox 95 09/17/24 07:00 FiO2 40 09/15/24 11:52 Intake & Output 09/16/24 09/17/24 09/17/24 18:59 06:59 18:59 Intake Total 394 480 128 Output Total 200 Balance 394 280 128 Weight 125 kg 125 kg Intake: IV 40 10 Invasive Line 2 30 Invasive Line 3 10 10 Oral 354 480 118 Output: Urine 200 Other: Voiding Method Diaper Diaper Diaper Incontinent Incontinent Incontinent # Voids 4 1 # Bowel Movements 1 - Exam No acute distress, oriented 3. The patient is currently on 3 L nasal cannula. HEENT examination is grossly unremarkable. Mucous membranes are moist. No oral lesions. Neck supple. Full range of motion. No adenopathy thyromegaly or neck vein distention. Cardiovascular examination reveals regular rhythm rate. S1-S2 normal. No S3 or S4. Soft systolic murmur noted. Lungs reveal bilateral expiratory and inspiratory rhonchi. No wheezes or crackles. Abdomen soft bowel sounds are heard. No masses or tenderness. Extremities are intact. No cyanosis or clubbing. Mild edema noted. Skin is without rash or lesion. Neurologic examination is brief but nonfocal. - Labs CBC & Chem 7: 09/17/24 07:45 09/17/24 07:45 Labs: Abnormal Lab Results - Last 24 Hours (Table) 09/16/24 09/16/24 09/16/24 Range/Units 11:38 16:45 20:00 RBC (3.80-5.40) m/uL Hgb (11.4-16.0) gm/dL Carbon Dioxide (22-30) mmol/L BUN (7-17) mg/dL Glucose (74-99) mg/dL POC Glucose (mg/dL) 177 H 168 H 140 H (70-110) mg/dL Total Protein (6.3-8.2) g/dL Albumin (3.5-5.0) g/dL 09/17/24 09/17/24 Range/Units 07:45 07:45 RBC 3.76 L (3.80-5.40) m/uL Hgb 10.9 L (11.4-16.0) gm/dL Carbon Dioxide 35 H (22-30) mmol/L BUN 24 H (7-17) mg/dL Glucose 101 H (74-99) mg/dL POC Glucose (mg/dL) (70-110) mg/dL Total Protein 5.4 L (6.3-8.2) g/dL Albumin 3.3 L (3.5-5.0) g/dL Assessment and Plan Assessment: Acute bilateral pneumonia, possibly gram-negative versus healthcare associated pneumonia versus aspiration pneumonia Chronic obstructive pulmonary disease, acute exacerbation Acute on chronic hypoxic respiratory failure secondary above Hypercarbia Diabetes mellitus, type II Morbid obesity with a BMI of 44.6 Hypertension Hyperlipidemia GI prophylaxis DVT prophylaxis Full code Plan: Recommend to continue with current medications and management with pulmonary and infectious disease following. Patient is maintained on Airvo currently [id number] and weaning as tolerated. Patient chronically wears oxygen outpatient and would probably benefit from BiPAP although unsure if patient will keep the mask on. Per nursing staff attempting to wean although patient desats very quickly. Patient being followed by pulmonary maintained on [id number] DuoNeb treatments and has been transitioned to a Medrol Dosepak Continue monitoring Accu-Cheks before meals and at bedtime and will adjust insulins accordingly Patient was evaluated by psychiatry making recommendations to medications Will discuss further with consultations regarding discharge planning. Antibiotics were discontinued by pulmonary with infectious disease following and being closely monitored off antibiotic therapy. Urine culture showing Arminda Due to multiple complex medical issues, overall prognosis is guarded
[2024-09-17 16:23] LABS: Glucose,Whole Blood 345 mg/dL (70-110)
[2024-09-17 20:08] LABS: Glucose,Whole Blood 181 mg/dL (70-110)
[2024-09-18 06:12] LABS: Glucose,Whole Blood 99 mg/dL (70-110)
[2024-09-18 08:04] VITALS: TEMP 97.7
[2024-09-18 09:34] LABS: African American GFR (CKD) >90 (>60 ml/min/1.73 sqM); Blood Urea Nitrogen 20 mg/dL (7-17); Calcium 8.7 mg/dL (8.4-10.2); Chloride 98 mmol/L (98-107); Glucose 93 mg/dL (74-99); Non-African American GFR(CKD) >90 (>60 ml/min/1.73 sqM); Potassium 4.1 mmol/L (3.5-5.1); Sodium 140 mmol/L (137-145)
[2024-09-18 09:41] LABS: Anion Gap 6 mmol/L
[2024-09-18 09:45] LABS: Carbon Dioxide 36 mmol/L (22-30)
--- NOTE | 2024-09-18 11:06 | P.PN ---
Subjective Progress Note Date: 09/18/24 Principal diagnosis: COPD exacerbation. This is a 64-year-old female patient with a history of schizophrenia and [facility]. She also has a history of COPD, diabetes mellitus, hyperlipidemia, hypertension, home oxygen, chronic bilateral lower extremity edema, chronic tobacco dependence. She was brought into the emergency room yesterday with complaints of shortness of breath. Chest x-ray reveals bibasilar patchy airspace opacities with cardiomegaly and small left pleural effusion. White count 6.2. Hemoglobin 10.2. Platelets 232. Sodium 139. Potassium 4.5. Bicarb 39. BUN 23. Creatinine 0.56. Glucose 174. 60%. She is seen today in consultation on the selective care unit. She is currently sitting up in bed. She has pulled off her Airvo high flow oxygen, pulled off her electrodes and gown. She is placed back on the Airvo high flow oxygen at 60 L and 60% FiO2. O2 saturations in the 90s. Is on DuoNeb inhalations, IV Solu-Medrol, oral diuretics. Antibiotics in the form of Zosyn. The patient is seen today September 11, 2024 in follow-up on the regular medical floor. She is currently resting more comfortably in bed. Maintaining O2 saturations in the 90s on Airvo high flow oxygen at 60 L and 50% FiO2 with O2 saturations in the 90s. Axillary temperature 99.5. Hemodynamically stable. telephone clerk at the bedside. Worsening right lower lobe infiltrate. Mild infiltrate to the left lung base. Fullness of the right hilum. White count 7.1. Hemoglobin 10.0. Platelets 239. Sodium 140. Potassium 4.6. Bicarb 35. BUN 30. Creatinine 0.57. Glucose 199. She is continued on Zosyn. Remains on IV diuretics. Continued on Symbicort and DuoNeb inhalations along with Solu- Medrol. Anticoagulated with Xarelto. The patient is seen today September 12, 2024 in follow-up on the regular medical floor. She is currently sitting up in bed. Awake and alert in no acute distress. She remains on Airvo high flow oxygen at 60 L and 50% FiO2. She is a bit more calm and cooperative today. telephone clerk at the bedside. She is co ntinued on Zosyn. Remains on Symbicort, DuoNeb inhalations, Solu-Medrol. Remains on oral diuretics. Anticoagulated with Xarelto. White count 6.1. Hemoglobin 10.5. Platelets 262. Sodium 140. Potassium 4.6. Bicarb 40. BUN 38. Creatinine 0.66. Glucose 202. The patient is seen today September 13, 2024 in follow-up on the regular medical floor. She is currently resting in bed. Awake and alert in no acute distress. Currently calm and cooperative. She is on the Airvo high flow oxygen at 50 L and 45% FiO2. She continues on DuoNeb inhalations, Symbicort, Medrol Dosepak. White count 7.3. Hemoglobin 10.6. Platelets 222. Sodium 138. Potassium 4.5. Bicarb 36. BUN 38. Creatinine 0.63. Glucose 99. Procalcitonin was negative at 0.02. Zosyn is discontinued. She remains on oral diuretics. Progress note dated September 14, 2024. 64-year-old female seen today in room 378. The patient appears to be doing about the same. She continues on Airvo, with settings of 40 L/min, and an FiO2 of 40%. She is not receiving any IV fluids. She appears to be awake and alert. No acute distress. She is laying in bed. No new laboratory data today other than a glucose of 154. Chest x-ray shows patchy infiltrate, right infrahilar region. In addition, there is increased density, left lower lobe. Procalcitonin level from September 10, was 0.02. Progress note dated September 15, 2024. 64-year-old female again seen in room 378. The patient remains on Airvo, 40 L/min, with an FiO2 of 40%. She is getting saline at 20 cc an hour. She is laying flat in bed. She is in no acute distress. She is awake and alert. Current laboratory data includes a white count 4.6, hemoglobin 10.5, hematocrit 32, and platelet count 65,000. Sodium 134, potassium 3.3, chlorides 100, CO2 31, BUN 14, creatinine 0.70. Ammonia level 75. Glucose is 115. Urine was positive for Klebsiella pneumoniae. Progress note dated September 16, 2024. 64-year-old female seen today in room 378. Currently, the patient is on 4 L nasal cannula. She is getting saline at 20 cc an hour, that can be discontinued . The patient is awake and alert. No respiratory distress. She would like her IV to be stopped. Current labs include a white count 10.1, hemoglobin 11.1, macro 35.1, platelet count 230,000. Sodium 138, potassium 4, chloride 97, CO2 37, BUN 18, creatinine 0.51. Glucose is 177. Calcium is 8.5. Progress note dated September 17, 2024. 64-year-old female seen today in room 378. She continues on nasal O2 at 3 L. She is not receiving any IV fluids. She is awake and alert. She is not manifes ting any signs or symptoms of distress. Current labs are good a white count 9.4, hemoglobin 10.9, hematocrit 34.9, and a platelet count of 243,000. Sodium 140, potassium 4, chloride 98, CO2 35, BUN 24, creatinine 0.7. Glucose is 236. Albumin is 3.3. Progress note dated September 18, 2024. 64-year-old female seen today in room 378. The patient is laying flat in bed. No respiratory distress. She continues on nasal cannula at 4 L. She is not receiving any IV fluids. Current labs include a sodium 140, potassium 4.1, chlorides 98, CO2 36, BUN 20, creatinine 0.57. Calcium is 8.7. Objective - Vital Signs Vital signs: Vital Signs Temp 97.7 F 09/18/24 08:00 Pulse 67 09/18/24 08:00 Resp 20 09/18/24 08:00 BP 150/74 09/18/24 08:00 Pulse Ox 95 09/18/24 08:00 FiO2 40 09/15/24 11:52 Intake & Output 09/17/24 09/18/24 09/18/24 18:59 06:59 18:59 Intake Total 931 240 190 Balance 931 240 190 Weight 125 kg Intake: IV 35 10 Invasive Line 3 30 Invasive Line 4 5 10 Oral 896 240 180 Other: Voiding Method Diaper Diaper Diaper Incontinent Incontinent Incontinent # Voids 1 # Bowel Movements 1 - Exam No acute distress, oriented 3. The patient is currently on 4 L nasal cannula. HEENT examination is grossly unremarkable. Mucous membranes are moist. No oral lesions. Neck supple. Full range of motion. No adenopathy thyromegaly or neck vein distention. Cardiovascular examination reveals regular rhythm rate. S1-S2 normal. No S3 or S4. Soft systolic murmur noted. Lungs reveal bilateral expiratory and inspiratory rhonchi. No wheezes or crackles. Abdomen soft bowel sounds are heard. No masses or tenderness. Extremities are intact. No cyanosis or clubbing. Mild edema noted. Skin is without rash or lesion. Neurologic examination is brief but nonfocal. - Labs CBC & Chem 7: 09/17/24 07:45 09/18/24 08:20 Labs: Abnormal Lab Results - Last 24 Hours (Table) 09/17/24 09/17/24 09/17/24 Range/Units 11:18 16:22 20:06 Carbon Dioxide (22-30) mmol/L BUN (7-17) mg/dL POC Glucose (mg/dL) 236 H 345 H 181 H (70-110) mg/dL 09/18/24 Range/Units 08:20 Carbon Dioxide 36 H (22-30) mmol/L BUN 20 H (7-17) mg/dL POC Glucose (mg/dL) (70-110) mg/dL Assessment and Plan Assessment: Acute hypoxemic respiratory failure secondary to suspected healthcare acquired versus aspiration pneumonia versus diastolic congestive heart failure. Acute exacerbation of chronic obstructive pulmonary disease. Klebsiella pneumoniae urinary tract infection. History of chronic tobacco dependence. History of schizophrenia. Diabetes mellitus, type II. History of seizures. Chronic lower extremity edema. Hypertension. Hyperlipidemia. long term resident. Plan: Plan dated September 14, 2024. The patient is seen today in room 378. The patient remains on Airvo, with settings of 40 L/min, and an FiO2 of 40%. Labs, x-rays, and all medications are reviewed. The patient is currently not on any antibiotics. Her procalcitonin level was 0.02. She continues on breathing treatments, and Symbicort. We will continue to follow. Prognosis is guarded. Plan dated September 15, 2024. The patient is seen again in room 378. The patient remains on Airvo, at 40 L/min with an FiO2 of 40%. She is getting saline at 20 cc an hour. Labs, x- rays, medications are reviewed. Her urine was positive for Klebsiella pneumoniae. The patient continues on a Medrol Dosepak. In addition, the patient continues on updrafts, with albuterol sulfate and Pratropium bromide. Labs, x-rays, and medications are reviewed. We will continue to follow. The patient should be transitioned to high flow nasal cannula. Plan dated September 16, 2024. The patient is seen today in room 378. The patient was on Airvo yesterday, and has been titrated down to 4 L nasal cannula. Labs, x-rays, medications are reviewed. The patient is getting saline IV at 20 cc an hour. That can be discontinued. Labs, x-rays, and all medications are reviewed. We will continue to follow make recommendations along the way. Urine, was positive for yeast species. Blood cultures were negative. Prognosis is guarded. We will continue to follow. Plan dated September 17, 2024. The patient is seen today in room 378. The patient is clinically stable. She is not short of breath, or having any chest discomfort. She continues on 3 L. She is not on any IV fluids. Labs, x-rays, and all medications are reviewed. We will continue to follow make recommendations along the way. The patient's overall prognosis remains guarded. Plan dated September 18, 2024. The patient is seen today in room 378. The patient is alert and awake. No respiratory distress, and the patient has no complaints today. Labs, x-rays, medications are reviewed. The patient's on 4 L of oxygen. She is not receiving any IV fluids. Labs, x-rays, and all medications are reviewed. We will continue to follow the patient, make recommendations along the way. Overall prognosis is guarded. Dictation was produced using [employer] software. Please excuse any grammatical, word or spelling errors. Time with Patient: Less than 30
[2024-09-18 11:23] VITALS: RESP 18
[2024-09-18 11:49] LABS: Glucose,Whole Blood 109 mg/dL (70-110)
--- NOTE | 2024-09-18 13:09 | P.PN ---
Subjective Progress Note Date: 09/18/24 Principal diagnosis: Reason for follow-up is tracheobronchitis and a question of pneumonia Patient is a 64-year-old female with a past medical history significant for diabetes mellitus hypertension hyperlipidemia COPD in this patient who is a care home resident patient has been brought into the hospital from the local care home for evaluation of increasing shortness of breath, patient has been diagnosed with a COPD exacerbation concerning for tracheobronchitis/pneumonia with possible UTI prompted this consultation. On today's evaluation that is 09/18/2024,the patient remains to be afebrile, patient is on 4 L nasal cannula supplemental oxygen however denies any shortness of breath no chest pain or cough.Patient denies having any nausea or vomiting, no abdominal pain and no diarrhea has been reported. Patient white count 0.57 blood culture has been negative Objective - Vital Signs Vital signs: Vital Signs Temp 97.7 F 09/18/24 11:21 Pulse 66 09/18/24 11:21 Resp 18 09/18/24 11:21 BP 126/86 09/18/24 11:21 Pulse Ox 95 09/18/24 11:21 FiO2 40 09/15/24 11:52 Intake & Output 09/17/24 09/18/24 09/18/24 18:59 06:59 18:59 Intake Total 931 240 190 Output Total 300 Balance 931 240 -110 Weight 125 kg Intake: IV 35 10 Invasive Line 3 30 Invasive Line 4 5 10 Oral 896 240 180 Output: Urine 300 Other: Voiding Method Diaper Diaper Diaper Incontinent Incontinent Incontinent # Voids 1 1 # Bowel Movements 1 - Exam GENERAL DESCRIPTION: Middle-age female lying in bed in no distress RESPIRATORY SYSTEM: Unlabored breathing , decreased intensity breath sounds, no wheeze s HEART: S1 S2 regular rate and rhythm , ABDOMEN: Soft , no tenderness EXTREMITIES: No edema feet - Labs CBC & Chem 7: 09/17/24 07:45 09/18/24 08:20 Labs: Abnormal Lab Results - Last 24 Hours (Table) 09/17/24 09/17/24 09/18/24 Range/Units 16:22 20:06 08:20 Carbon Dioxide 36 H (22-30) mmol/L BUN 20 H (7-17) mg/dL POC Glucose (mg/dL) 345 H 181 H (70-110) mg/dL Assessment and Plan (1) Pneumonia Current Visit: No Status: Acute Code(s): J18.9 - PNEUMONIA, UNSPECIFIED ORGANISM SNOMED Code(s): 894512766 Plan: 1patient presenting to the hospital for evaluation of increasing shortness of breath which is likely multifactorial with a question of possible fluid overload versus pneumonia less likely bilateral excluded patient not running any fever did have mildly elevated white count also noted to have significantly cloudy urine however UA did not show any evidence of pyuria 2--patient did have some improvement in respiratory symptoms Zosyn has been discontinued currently being monitored closely off antibiotic therapy and seem to be doing well 3-patient did have urine culture with yeast, however no urinary symptom and UA was not significantly positive no need for any antifungal on discharge this was discussed with admitting physician Dictation was produced using [employer] dictation software. please excuse any grammatical, word or spelling errors. Time with Patient: Less than 30
[2024-09-18 15:26] VITALS: BP 126/80
--- NOTE | 2024-09-18 15:45 | P.DS ---
Providers Date of admission: 09/09/24 14:45 Attending physician: Elio Day Consults: 09/09/24 14:44 Consult Physician Routine Consulting Provider: Meredith Nicholson Consult Reason/Comments: dyspnea Do you want consulting provider notified?: Yes 09/10/24 10:30 Consult Physician Routine Consulting Provider: Isrrael Barnard Consult Reason/Comments: Agitation, H/O schizophrenia Do you want consulting provider notified?: Yes 09/10/24 14:59 Consult Physician Urgent Consulting Provider: Valerio Glass Consult Reason/Comments: copd, pna, uti? Do you want consulting provider notified?: Yes Primary care physician: [place] [facility] Course: 64-year-old female who resides at [facility] was sent here with concerns of possible bilateral pneumonia and increasing shortness of breath found to have COPD exacerbation. Patient initially requiring BiPAP and has been placed on Airvo and is weaning as tolerated 45/45 currently. Procalcitonin was low and pulmonary has discontinued antibiotics. Infectious disease following being closely monitored off antibiotic therapy. Patient continues on steroids and has been transition to a Medrol Dosepak along with [id number] DuoNeb treatments and inhalers. Plan is for patient to return to [facility] once patient has been weaned off Airvo. Recommend follow-up chest x-ray in the a.m. and will continue to monitor closely. 09/14/2024 Patient is seen in follow-up today currently more awake and mentation is more appropriate today. Patient remains on Airvo at 45/45 FiO2. Pulmonary and infectious disease following and patient is maintained on DuoNeb treatments and has transition to oral prednisone. Procalcitonin was low and antibiotics have been discontinued with infectious disease following being closely monitored off antibiotic therapy. Plan is for patient to return to [facility] on discharge once respiratory status improves. Acute bilateral pneumonia, possibly gram-negative versus healthcare associated pneumonia versus aspiration pneumonia Chronic obstructive pulmonary disease, acute exacerbation Acute on chronic hypoxic respiratory failure secondary above Hypercarbia Diabetes mellitus, type II Morbid obesity with a BMI of 44.6 Hypertension Hyperlipidemia GI prophylaxis DVT prophylaxis September 18, 2024. 64-year-old female seen today in room 378. The patient is laying flat in bed. No respiratory distress. She continues on nasal cannula at 4 L. She is not receiving any IV fluids. Current labs include a sodium 140, potassium 4.1, chlorides 98, CO2 36, BUN 20, creatinine 0.57. Calcium is 8.7. Has been cleared for discharge by ID and pulmonary service -Stable to discharge to skilled rehab Patient Condition at Discharge: Serious Plan - Discharge Summary Discharge Rx Participant: No New Discharge Prescriptions: New Folic Acid 1 mg PO DAILY@1200 tab Multivitamins, Thera [Multivitamin (formulary)] 1 each PO DAILY@1200 tab Nystatin 100,000 Unit/gm Powd [Mycostatin Powder] 1 applic TOPICAL TID PRN each PRN Reason: Skin Irritation Thiamine [Vitamin B-1] 100 mg PO DAILY tab Continue Ergocalciferol [Vitamin D2 (DRISDOL)] 50,000 unit PO SA@1700 Linagliptin [Tradjenta] 5 mg PO DAILY@0800 Ipratropium-Albuterol Nebulize [Duoneb 0.5 mg-3 mg/3 ml Soln] 3 ml INHALATION RT-QID@00,06,12,18 Budesonide-Formot 160-4.5 Mcg [Symbicort 160-4.5 Mcg Inhaler] 2 puff INHALATION RT-BID@08,17 Acetaminophen [Tylenol] 500 mg PO Q6H PRN #0 PRN Reason: Pain Aspirin 81 mg PO DAILY@0800 Famotidine [Pepcid] 20 mg PO DAILY@0800 Lactulose [Cephulac] 20 gm PO DAILY PRN ml PRN Reason: Constipation predniSONE 10 mg PO DAILY@0800 cloZAPine [Clozaril] 200 mg PO HS@2100 Divalproex ER [Depakote ER] 250 mg PO HS Insulin Lispro [Admelog] 7 units SQ BID@0800,1700 metFORMIN HCL [Glucophage] 1,000 mg PO BID@0800,1700 Atorvastatin Calcium [Lipitor] 20 mg PO HS@2100 Ascorbic Acid [Vitamin C] 500 mg PO BID@0800,1700 Rivaroxaban [Xarelto] 10 mg PO DAILY@0800 Zinc Sulfate [Orazinc] 220 mg PO DAILY@1700 Magnesium Hydroxide [Milk of Magnesia Concentrate] 7,200 mg PO DAILY PRN PRN Reason: Constipation bisacodyL [Dulcolax] 10 mg RECTAL DAILY PRN PRN Reason: Constipation Na Phos,M-B/Na Phos,Di-Ba [Fleet Adult] 133 ml RECTAL DAILY PRN PRN Reason: Constipation Furosemide [Lasix] 20 mg PO BID@0800,1700 Divalproex ER [Depakote ER] 500 mg PO BID@0800,2100 Insulin Degludec [Tresiba Flextouch U-100 Pen] 10 units SQ DAILY@0800 Insulin Lispro [Admelog] See Protocol SQ AC-TID@07,,1630 Insulin Lispro [Admelog] 10 units SQ DAILY@1200 Loperamide [Imodium] 2 - 4 mg PO TID PRN MDD 8mg PRN Reason: Diarrhea Discharge Medication List Ergocalciferol [Vitamin D2 (DRISDOL)] 50,000 unit PO SA@1700 09/02/19 [History] Linagliptin [Tradjenta] 5 mg PO DAILY@0800 04/20/20 [History] Ipratropium-Albuterol Nebulize [Duoneb 0.5 mg-3 mg/3 ml Soln] 3 ml INHALATION RT-QID@00,06,,18 04/12/21 [History] Atorvastatin Calcium [Lipitor] 20 mg PO HS@2100 11/05/21 [History] Budesonide-Formot 160-4.5 Mcg [Symbicort 160-4.5 Mcg Inhaler] 2 puff INHALATION RT-BID@11/05/21 [History] metFORMIN HCL [Glucophage] 1,000 mg PO BID@0800,1700 11/05/21 [History] Acetaminophen [Tylenol] 500 mg PO Q6H PRN #0 11/16/21 [Rx] Ascorbic Acid [Vitamin C] 500 mg PO BID@0800,1700 12/07/21 [History] Aspirin 81 mg PO DAILY@0800 12/07/21 [History] Famotidine [Pepcid] 20 mg PO DAILY@0812/07/21 [History] Rivaroxaban [Xarelto] 10 mg PO DAILY@0800 12/07/21 [History] Zinc Sulfate [Orazinc] 220 mg PO DAILY@169912/07/21 [History] Lactulose [Cephulac] 20 gm PO DAILY PRN ml 12/11/21 [Rx] Furosemide [Lasix] 20 mg PO BID@0800,1700 10/01/23 [History] Magnesium Hydroxide [Milk of Magnesia Concentrate] 7,200 mg PO DAILY PRN 10/01/23 [History] Na Phos,M-B/Na Phos,Di-Ba [Fleet Adult] 133 ml RECTAL DAILY PRN 10/01/23 [Histo ry] bisacodyL [Dulcolax] 10 mg RECTAL DAILY PRN 10/01/23 [History] cloZAPine [Clozaril] 200 mg PO HS@2100 10/01/23 [History] predniSONE 10 mg PO DAILY@0800 10/01/23 [History] Divalproex ER [Depakote ER] 250 mg PO HS 09/09/24 [History] Divalproex ER [Depakote ER] 500 mg PO BID@0800,2100 09/09/24 [History] Insulin Degludec [Tresiba Flextouch U-100 Pen] 10 units SQ DAILY@0800 09/09/24 [History] Insulin Lispro [Admelog] 7 units SQ BID@0800,1700 09/09/24 [History] Insulin Lispro [Admelog] 10 units SQ DAILY@1200 09/09/24 [History] Insulin Lispro [Admelog] See Protocol SQ AC-TID@07,11,1630 09/09/24 [History] Loperamide [Imodium] 2 - 4 mg PO TID PRN MDD 8mg 09/09/24 [History] Folic Acid 1 mg PO DAILY@1200 tab 09/18/24 [Rx] Multivitamins, Thera [Multivitamin (formulary)] 1 each PO DAILY@1200 tab 09/18/24 [Rx] Nystatin 100,000 Unit/gm Powd [Mycostatin Powder] 1 applic TOPICAL TID PRN each 09/18/24 [Rx] Thiamine [Vitamin B-1] 100 mg PO DAILY tab 09/18/24 [Rx] Follow up Appointment(s)/Referral(s): Bello Alberto MD [Primary Care Provider] - 1-2 days Discharge Disposition: TRANSFER TO SNF/ECF
[2024-09-18 15:58] VITALS: PULSE 76
[2024-09-18 16:28] LABS: Glucose,Whole Blood 191 mg/dL (70-110)
== END 2024-09-18 19:54 | DRG 177 ==
LOC: EC 12:25 → 3SCARD 14:45
PROVIDERS: ADMIT Hospitalist; ATTEND Hospitalist
PROC: 5A09357 Assistance with Respiratory Ventilation, Less than 24 Consecutive Hours, Continuous Positive Airway Pressure (ICD-10-PCS; principal; 2024-09-11)
DX: J69.0 Pneumonitis due to inhalation of food and vomit (principal); G93.41 Metabolic encephalopathy; J96.21 Acute and chronic respiratory failure with hypoxia; J44.1 Chronic obstructive pulmonary disease with (acute) exacerbation; F03.93 Unspecified dementia, unspecified severity, with mood disturbance; N39.0 Urinary tract infection, site not specified; Z68.41 Body mass index [BMI] 40.0-44.9, adult; B96.1 Klebsiella pneumoniae [K. pneumoniae] as the cause of diseases classified elsewhere; Z99.81 Dependence on supplemental oxygen; E11.9 Type 2 diabetes mellitus without complications; E66.01 Morbid (severe) obesity due to excess calories; E78.5 Hyperlipidemia, unspecified; Z87.891 Personal history of nicotine dependence; F20.9 Schizophrenia, unspecified; I10 Essential (primary) hypertension; Z79.01 Long term (current) use of anticoagulants; Z79.51 Long term (current) use of inhaled steroids; Z79.82 Long term (current) use of aspirin; Z79.4 Long term (current) use of insulin; Z79.84 Long term (current) use of oral hypoglycemic drugs; Z79.899 Other long term (current) drug therapy; Z88.8 Allergy status to other drugs, medicaments and biological substances; Z91.040 Latex allergy status
CPT/HCPCS: 36415; 36600; 70450; 71045; 80048; 80053; 80164; 81001; 81003; 82805; 83605; 83735; 83880; 84145; 84484; 85025; 85610; 85730; 87040; 87086; 87636; 93005; 93308; 94640; 94760; 96365; 96366; 96368; 96375; 96376; 99285

== ENCOUNTER 2024-11-06 13:19 | Inpatient (IN) | payer MEDICARE, OTHER ==
[2024-11-06 14:15] LABS: Anisocytosis Slight; Basophils % (A) 1 %; Eosinophils % (A) 0 %; HCT 34.2 % (34.0-46.0); HGB 10.8 gm/dL (11.4-16.0); Hypochromasia Marked; Lymphocytes # (A) 1.4 k/uL (1.0-4.8); Lymphocytes % (A) 18 %; MCH 29.2 pg (25.0-35.0); MCHC 31.7 g/dL (31.0-37.0); MCV 92.3 fL (80.0-100.0); Mean Platelet Volume 7.8; Monocytes # (A) 0.7 k/uL (0-1.0); Monocytes % (A) 9 %; Neutrophils # (A) 5.2 k/uL (1.3-7.7); Neutrophils % (A) 70 %; Platelet Count 242 k/uL (150-450); RBC 3.71 m/uL (3.80-5.40); WBC 7.5 k/uL (3.8-10.6)
[2024-11-06 14:27] LABS: INR 0.9 (<1.2); Partial Thromboplastin Time 23.5 sec (22.0-30.0); Prothrombin Time 10.5 sec (10.0-12.5)
[2024-11-06 14:30] LABS: ALT 11 U/L (4-34); AST 14 U/L (14-36); African American GFR (CKD) >90 (>60 ml/min/1.73 sqM); Albumin 3.5 g/dL (3.5-5.0); Alkaline Phosphatase 181 U/L (38-126); Anion Gap 7 mmol/L; Blood Urea Nitrogen 17 mg/dL (7-17); Calcium 8.8 mg/dL (8.4-10.2); Chloride 93 mmol/L (98-107); Glucose 149 mg/dL (74-99); Non-African American GFR(CKD) >90 (>60 ml/min/1.73 sqM); Potassium 3.9 mmol/L (3.5-5.1); Sodium 140 mmol/L (137-145); Total Bilirubin 0.3 mg/dL (0.2-1.3); Total Protein 5.8 g/dL (6.3-8.2)
[2024-11-06 14:38] LABS: NT-Pro-B-Type Natriuretic Pept 915 pg/mL
--- NOTE | 2024-11-06 14:55 | ED ---
General Adult HPI - General Chief complaint: Altered Mental Status Stated complaint: SOB Time Seen by Provider: 11/06/24 13:30 Source: patient Mode of arrival: EMS Limitations: altered mental status - History of Present Illness Initial comments: Is a 64-year-old female the past medical history of COPD presenting today for a brief episode of altered mental status. Upon calling patient's facility section states that patient's oxygen level was "getting low" but unable to tell me how low, states that she was "in and out of it". Per EMS, patient had returned to baseline on their arrival to the [facility]. Baseline reported to be AO x2-3. [facility] nursing [facility] was concerned that patient may have pneumonia. She typically wears 2 L oxygen nasal cannula at baseline. Patient currently request to be able to sleep and denies any pain. - Related Data Home Medications Medication Instructions Recorded Confirmed Ergocalciferol [Vitamin D2 50,000 unit PO SA@1700 09/02/19 11/06/24 (DRISDOL)] Linagliptin [Tradjenta] 5 mg PO DAILY@0800 04/20/20 11/06/24 Ipratropium-Albuterol Nebulize 3 ml INHALATION RT-QID@00,06,12,18 04/12/21 11/06/24 [Duoneb 0.5 mg-3 mg/3 ml Soln] Atorvastatin Calcium [Lipitor] 20 mg PO HS@2100 11/05/21 11/06/24 Budesonide-Formot 160-4.5 Mcg 2 puff INHALATION RT-BID@08,17 11/05/21 11/06/24 [Symbicort 160-4.5 Mcg Inhaler] metFORMIN HCL [Glucophage] 1,000 mg PO BID@0800,1700 11/05/21 11/06/24 Ascorbic Acid [Vitamin C] 500 mg PO BID@0800,1700 12/07/21 11/06/24 Aspirin 81 mg PO DAILY@0800 12/07/21 11/06/24 Famotidine [Pepcid] 20 mg PO DAILY@0800 12/07/21 11/06/24 Rivaroxaban [Xarelto] 10 mg PO DAILY@0800 12/07/21 11/06/24 Zinc Sulfate [Orazinc] 220 mg PO DAILY@1700 12/07/21 11/06/24 Furosemide [Lasix] 20 mg PO BID@0800,1700 10/01/23 11/06/24 Magnesium Hydroxide [Milk of 7,200 mg PO DAILY PRN 10/01/23 11/06/24 Magnesia Concentrate] Na Phos,M-B/Na Phos,Di-Ba [Fleet 133 ml RECTAL DAILY PRN 10/01/23 11/06/24 Adult] bisacodyL [Dulcolax] 10 mg RECTAL DAILY PRN 10/01/23 11/06/24 cloZAPine [Clozaril] 200 mg PO HS@2100 10/01/23 11/06/24 predniSONE 10 mg PO DAILY@0800 10/01/23 11/06/24 Divalproex ER [Depakote ER] 250 mg PO HS@209909/09/24 11/06/24 Divalproex ER [Depakote ER] 500 mg PO BID@0800,2100 09/09/24 11/06/24 Insulin Degludec [Tresiba 10 units SQ DAILY@0800 09/09/24 11/06/24 Flextouch U-100 Pen] Insulin Lispro [Admelog] 7 units SQ BID@0800,1700 09/09/24 11/06/24 Insulin Lispro [Admelog] 10 units SQ DAILY@1200 09/09/24 11/06/24 Insulin Lispro [Admelog] See Protocol SQ AC-TID@07,11,1630 09/09/24 11/06/24 Loperamide [Imodium] 2 - 4 mg PO TID PRN MDD 8mg 09/09/24 11/06/24 Folic Acid 1 mg PO DAILY@0800 11/06/24 11/06/24 Thiamine [Vitamin B-1] 100 mg PO DAILY@0800 11/06/24 11/06/24 Previous Rx's Medication Instructions Recorded Acetaminophen [Tylenol] 500 mg PO Q6H PRN #0 11/16/21 Lactulose [Cephulac] 20 gm PO DAILY PRN ml 12/11/21 Multivitamins, Thera [Multivitamin 1 each PO DAILY@1200 tab 09/18/24 (formulary)] Nystatin 100,000 Unit/gm Powd 1 applic TOPICAL TID PRN each 09/18/24 [Mycostatin Powder] Allergies Allergy/AdvReac Type Severity Reaction Status Date / Time honey Allergy Unknown Verified 11/06/24 16:48 latex Allergy Unknown Verified 11/06/24 16:48 risperidone [From Risperdal] Allergy Unknown Verified 11/06/24 16:48 whey Allergy Unknown Verified 11/06/24 16:48 Review of Systems ROS Statement: Those systems with pertinent positive or pertinent negative responses have been documented in the HPI. ROS Other: All systems not noted in ROS Statement are negative. Past Medical History Past Medical History: COPD, Diabetes Mellitus, Hyperlipidemia, Hypertension Additional Past Medical History / Comment(s): NIDDM type II, FALLS, chronic bilateral lower extremity edema, constipation. Per [place] patient takes Xaralto for DVT prophylaxis, no HX DVT/PE, Patietn also wears 2-4LNC, and has body tremors History of Any Multi-Drug Resistant Organisms: None Reported Past Surgical History: Section Additional Past Surgical History / Comment(s): colonoscopy/benign polypectomy Past Anesthesia/Blood Transfusion Reactions: No Reported Reaction Past Psychological History: Schizophrenia Smoking Status: Former smoker Past Alcohol Use History: None Reported Past Drug Use History: None Reported - Past Family History family Family Medical History: Unable to Obtain General Exam - General Exam Comments Initial Comments: PE: CONSTITUTIONAL: [no apparent distress, chronically ill-appearing, nontoxic] SKIN: [warm, dry, no jaundice, hives or petechiae; circumferential erythema and warmth of the distal left lower extremity, mild erythema of the distal right lower extremity] EYES:[ pupils are equally round, extraocular movements intact without nystagmus, clear conjunctiva, non-icteric sclera] HENT: [normocephalic, atraumatic, dry mucus membranes, oropharynx clear without exudates] NECK: , [Full range of motion, normal appearance] PULMONARY: Scant wheeze bilaterally without, rhonchi, or rales, normal excursion, no accessory muscle use and no stridor] CARDIOVASCULAR:[ regular rate, rhythm, normal S1 and S2. No appreciated murmurs, rubs or gallops. Strong radial pulses with intact distal perfusion. Bilateral lower extremity edema, 2+ in the right lower extremity, 3+ left lower extremity] GASTROINTESTINAL: [soft, active bowel sounds throughout, non-tender, non- distended, no palpable masses, no rebound or guarding. No hepatosplenomegaly] MUSCULOSKELETAL: [Extremities are atraumatic NEUROLOGIC: [_a/o x 2, GCS 15, normal mentation and speech. Moves all extremities x 4 without motor or sensory deficit] PSYCHIATRIC:[ _normal mood and affect, thought process is clear and linear] Limitations: altered mental status Course Vital Signs 11/06/24 11/06/24 11/06/24 13:35 14:41 16:15 Temperature 98.3 F Pulse Rate 93 87 98 Respiratory 16 16 Rate Blood Pressure 119/57 116/61 O2 Sat by Pulse 91 L 92 L Oximetry Fraction of Inspired Oxygen (FIO2) 11/06/24 11/06/24 11/06/24 16:23 16:34 17:52 Temperature Pulse Rate 100 96 96 Respiratory 20 Rate Blood Pressure 125/73 O2 Sat by Pulse 92 L Oximetry Fraction of Inspired Oxygen (FIO2) 11/06/24 11/06/24 11/06/24 18:00 18:06 20:30 Temperature Pulse Rate 100 96 80 Respiratory 26 H Rate Blood Pressure 119/58 O2 Sat by Pulse 84 L Oximetry Fraction of Inspired Oxygen (FIO2) 11/06/24 11/06/24 11/06/24 20:49 21:14 22:27 Temperature Pulse Rate 80 82 Respiratory 23 20 Rate Blood Pressure 117/64 128/62 O2 Sat by Pulse 95 94 L Oximetry Fraction of 50 Inspired Oxygen (FIO2) 11/07/24 11/07/24 11/07/24 00:09 00:25 02:31 Temperature Pulse Rate 78 72 Respiratory 20 10 L Rate Blood Pressure 138/71 118/67 O2 Sat by Pulse 96 94 L Oximetry Fraction of 50 Inspired Oxygen (FIO2) 11/07/24 11/07/24 11/07/24 03:00 03:11 04:00 Temperature Pulse Rate 70 72 70 Respiratory 18 Rate Blood Pressure 124/74 O2 Sat by Pulse 96 Oximetry Fraction of Inspired Oxygen (FIO2) 11/07/24 11/07/24 11/07/24 04:09 06:00 07:44 Temperature Pulse Rate 72 Respiratory 18 Rate Blood Pressure 115/64 O2 Sat by Pulse 95 Oximetry Fraction of 50 55 Inspired Oxygen (FIO2) 11/07/24 11/07/24 11/07/24 07:47 08:00 09:00 Temperature Pulse Rate 74 60 82 Respiratory 17 Rate Blood Pressure 122/57 O2 Sat by Pulse 97 Oximetry Fraction of Inspired Oxygen (FIO2) 11/07/24 11/07/24 11/07/24 11:46 11:49 12:00 Temperature Pulse Rate 78 77 Respiratory 19 Rate Blood Pressure 134/61 O2 Sat by Pulse 92 L Oximetry Fraction of 55 Inspired Oxygen (FIO2) 11/07/24 11/07/24 11/07/24 12:01 12:03 14:49 Temperature Pulse Rate 92 88 Respiratory 20 Rate Blood Pressure 131/63 O2 Sat by Pulse 94 L 94 L Oximetry Fraction of Inspired Oxygen (FIO2) 11/07/24 16:05 Temperature Pulse Rate Respiratory Rate Blood Pressure O2 Sat by Pulse 95 Oximetry Fraction of Inspired Oxygen (FIO2) EKG Findings - EKG Comments: EKG Findings:: Sinus rhythm, Rate 89 beats minute, IA interval 155 ms, QT/QTc 364/4 to 10 ms, normal axis, no ST elevations or depressions Medical Decision Making - Medical Decision Making Was pt. sent in by a medical professional or institution (, PA, [facility]UM[facility]ORTER, urgent care, hospital, or halfway...) When possible be specific @ -Patient was sent in by [facility] Did you speak to anyone other than the patient for history (EMS, parent, family, police, friend...)? What history was obtained from this source @Yes called pt's facility and spoke with staff there, who stated pt was having "low oxygen" and was "in and out of it" prompting call to EMS to bring pt to the ED Did you review nursing and triage notes (agree or disagree)? Why? @ -I reviewed nursing and triage notes Were old charts reviewed (outside hosp., previous admission, EMS record, old EKG, old radiological studies, urgent care reports/EKG's, halfway records)? Report findings @ -Medical records reviewed reviewed discharge summary from 09/18/2024, was sent in at that time for concerns of bilateral pneumonia and was found have a COPD exacerbation, requiring BiPAP at that point, noted to be altered at that time as well Differential Diagnosis (chest pain, altered mental status, abdominal pain women, abdominal pain men, vaginal bleeding, weakness, fever, dyspnea, syncope, headache, dizziness, GI bleed, back pain, seizure, CVA, palpatations, mental health, musculoskeletal)? Differentiial diagnosis remains broad however top considerations include AMS 2/2 hypoxia due to COPD exacerbation, pneumonia, CHF, PE, AMS 2/2 hypercapneic encephalopathy; AMS 2/2 Hypoglycemia, DKA, myxedema coma, HTN encephalopathy, infection, encephalitis, psychosis, intercranial hemorrhage, hepatic encephalopathy, \\CVA, this is not meant to be an all-inclusive list EKG interpreted by me (3pts min.). @ -As above X-rays interpreted by me (1pt min.). Cardiomegaly, bilateral pulmonary edema CT interpreted by me (1pt min.). @ -CT brain shows no evidence of hemorrhage or mass effect, CT PE study shows no massive or submassive pulmonary embolism What testing was considered but not performed or refused? (CT, X-rays, U/S, labs)? Why? @ -None What meds were considered but not given or refused? Why? @ -None Did you discuss the management of the patient with other professionals (professionals i.e. , PA, LUMBER SORTER, lab, RT, psych nurse, social services analyst, glassware finisher, teacher, police officer, shoe parts caser)? Give summary @ -No Was smoking cessation discussed for >3mins.? @ -No Was critical care preformed (if so, how long)? @, Yes, 35 minutes Were there social determinants of health that impacted care today? How? (Homelessness, low income, unemployed, alcoholism, drug addiction, transportation, low edu. Level, literacy, decrease access to med. care, assisted, rehab)? @ -No Was there de-escalation of care discussed even if they declined (Discuss DNR or withdrawal of care, Hospice)? @ -No What co-morbidities impacted this encounter? (DM, HTN, Smoking, COPD, CAD, C ancer, CVA, ARF, Chemo, Hep., AIDS, mental health diagnosis, sleep apnea, morbid obesity)? @COPD, obesity Was patient admitted / discharged? Hospital course, mention meds given and route, prescriptions, significant lab abnormalities, going to OR and other pertinent info. @Admission -Patient is a 64-year-old female presenting from [facility] today for brief episode of confusion and low oxygen. Patient reportedly back to baseline by the time EMS personnel had arrived at patient's facility. Patient seen and assessed on arrival, she is chronically ill- appearing but nontoxic and in no acute distress. Has dry mucous membranes, scant wheezes bilaterally, lower extremity edema with erythema of the distal left lower extremity. Due to lower extremity swelling, ultrasound of the lower extremities and D-dimer ordered. Additionally will plan for CT brain, chest x- ray, CBC,EKG, CMP, troponin, PT PTT BNP TSH with T4 Cepheid testing urinalysis. I suspect that patient's wheezing is more likely secondary to CHF based on patient's lower extremity edema however a DuoNeb will be ordered given patient's history of COPD. CT brain negative for acute process. Chest x-ray showed low lung volumes with generalized hazy appearance that could represent atelectasis versus pulmonary edema, recommends correlation with BNP. US negative for DVT, dimer elevated, CT PE study showed no PE though did not sclerotic foci of osseous structures concerning for metastatic disease from underlying malignancy, BNP elevated 915, w/ LE swelling, scant wheezes, suspect CHF exacerbation with uderlying COPD exacerbation. 40 mg IV lasix ordered, plan for admission. Additionally cefepime ordered for suspected cellulitis of the left lower extremity. On reassessment patient continues to be at baseline, does continue to have scant wheezes status post DuoNeb treatment, though respirations are unlabored. Case discussed w/ ANITA Rosas, kindly accepts patient for admission. Of note, after admisision pt remained in ED pending placement. RN requested I evaluate pt as pt appeared to be desatt-ing on home O2. On my reassessment pt did appear to be somewhat more tachypneic, and pulse ox decreased to 80s though in no acute distress. Pt transitioned to bipap. Additionally requested RN alert admitting team patient's change in status. Undiagnosed new problem with uncertain prognosis? @ -No Drug Therapy requiring intensive monitoring for toxicity (Heparin, Nitro, Insulin, Cardizem)? @ -No Were any procedures done? @ -No Diagnosis/symptom? @Acute hypoxemic respiratory failure, CHF exacerbation, COPD exacerbation, cellulitis, acute encephalopathy Acute, or Chronic, or Acute on Chronic? @ -Acute Uncomplicated (without systemic symptoms) or Complicated (systemic symptoms)? @Complicated Side effects of treatment? @ -No Exacerbation, Progression, or Severe Exacerbation? CHF and COPD exacerbation Poses a threat to life or bodily function? How? (Chest pain, USA, MA, pneumonia, PE, COPD, DKA, ARF, appy, cholecystitis, CVA, Diverticulitis, Homicidal, Suicidal, threat to staff... and all critical care pts) Yes, if allowed to progress/continue untreated would result in fulminant respiratory failure and potentially - Lab Data Result diagrams: 11/11/24 07:38 11/11/24 07:38 Lab Results 11/06/24 11/06/24 11/06/24 Range/Units 14:06 14:06 14:06 WBC 7.5 (3.8-10.6) k/uL RBC 3.71 L (3.80-5.40) m/uL Hgb 10.8 L (11.4-16.0) gm/dL Hct 34.2 (34.0-46.0) % MCV 92.3 (80.0-100.0) fL MCH 29.2 (25.0-35.0) pg MCHC 31.7 (31.0-37.0) g/dL RDW 17.0 H (11.5-15.5) % Plt Count 242 (150-450) k/uL MPV 7.8 Neutrophils % 70 % Lymphocytes % 18 % Monocytes % 9 % Eosinophils % 0 % Basophils % 1 % Neutrophils # 5.2 (1.3-7.7) k/uL Lymphocytes # 1.4 (1.0-4.8) k/uL Monocytes # 0.7 (0-1.0) k/uL Eosinophils # 0.0 (0-0.7) k/uL Basophils # 0.0 (0-0.2) k/uL Hypochromasia Marked Anisocytosis Slight PT 10.5 (10.0-12.5) sec INR 0.9 (<1.2) APTT 23.5 (22.0-30.0) sec D-Dimer 0.82 H (<0.60) mg/L FEU Sodium 140 (137-145) mmol/L Potassium 3.9 (3.5-5.1) mmol/L Chloride 93 L (98-107) mmol/L Carbon Dioxide 40 H (22-30) mmol/L Anion Gap 7 mmol/L BUN 17 (7-17) mg/dL Creatinine 0.67 (0.52-1.04) mg/dL Est GFR (CKD-EPI)AfAm >90 (>60 ml/min/1.73 sqM) Est GFR (CKD-EPI)NonAf >90 (>60 ml/min/1.73 sqM) Glucose 149 H (74-99) mg/dL Calcium 8.8 (8.4-10.2) mg/dL Total Bilirubin 0.3 (0.2-1.3) mg/dL AST 14 (14-36) U/L ALT 11 (4-34) U/L Alkaline Phosphatase 181 H (38-126) U/L Troponin I (0.000-0.034) ng/mL NT-Pro-B Natriuret Pep 915 pg/mL Total Protein 5.8 L (6.3-8.2) g/dL Albumin 3.5 (3.5-5.0) g/dL TSH 0.981 (0.465-4.680) mIU/L Urine Color Urine Appearance (Clear) Urine pH (5.0-8.0) Ur Specific Francis (1.001-1.035) Urine Protein (Negative) Urine Glucose (UA) (Negative) Urine Ketones (Negative) Urine Blood (Negative) Urine Nitrite (Negative) Urine Bilirubin (Negative) Urine Urobilinogen (<2.0) mg/dL Ur Leukocyte Esterase (Negative) Urine RBC (0-5) /hpf Urine WBC (0-5) /hpf Ur Squamous Epith Cells (0-4) /hpf Urine Bacteria (None) /hpf Urine Mucus (None) /hpf Influenza Type A (PCR) (Not Detectd) Influenza Type B (PCR) (Not Detectd) RSV (PCR) (Not Detectd) SARS-CoV-2 (PCR) (Not Detectd) 11/06/24 11/06/24 11/06/24 Range/Units 14:06 14:14 14:26 WBC (3.8-10.6) k/uL RBC (3.80-5.40) m/uL Hgb (11.4-16.0) gm/dL Hct (34.0-46.0) % MCV (80.0-100.0) fL MCH (25.0-35.0) pg MCHC (31.0-37.0) g/dL RDW (11.5-15.5) % Plt Count (150-450) k/uL MPV Neutrophils % % Lymphocytes % % Monocytes % % Eosinophils % % Basophils % % Neutrophils # (1.3-7.7) k/uL Lymphocytes # (1.0-4.8) k/uL Monocytes # (0-1.0) k/uL Eosinophils # (0-0.7) k/uL Basophils # (0-0.2) k/uL Hypochromasia Anisocytosis PT (10.0-12.5) sec INR (<1.2) APTT (22.0-30.0) sec D-Dimer (<0.60) mg/L FEU Sodium (137-145) mmol/L Potassium (3.5-5.1) mmol/L Chloride (98-107) mmol/L Carbon Dioxide (22-30) mmol/L Anion Gap mmol/L BUN (7-17) mg/dL Creatinine (0.52-1.04) mg/dL Est GFR (CKD-EPI)AfAm (>60 ml/min/1.73 sqM) Est GFR (CKD-EPI)NonAf (>60 ml/min/1.73 sqM) Glucose (74-99) mg/dL Calcium (8.4-10.2) mg/dL Total Bilirubin (0.2-1.3) mg/dL AST (14-36) U/L ALT (4-34) U/L Alkaline Phosphatase (38-126) U/L Troponin I <0.012 (0.000-0.034) ng/mL NT-Pro-B Natriuret Pep pg/mL Total Protein (6.3-8.2) g/dL Albumin (3.5-5.0) g/dL TSH (0.465-4.680) mIU/L Urine Color Yellow Urine Appearance Turbid H (Clear) Urine pH 6.0 (5.0-8.0) Ur Specific Francis 1.025 (1.001-1.035) Urine Protein 1+ H (Negative) Urine Glucose (UA) Negative (Negative) Urine Ketones 1+ H (Negative) Urine Blood Negative (Negative) Urine Nitrite Positive H (Negative) Urine Bilirubin Negative (Negative) Urine Urobilinogen <2.0 (<2.0) mg/dL Ur Leukocyte Esterase Negative (Negative) Urine RBC <1 (0-5) /hpf Urine WBC 1 (0-5) /hpf Ur Squamous Epith Cells 1 (0-4) /hpf Urine Bacteria Occasional H (None) /hpf Urine Mucus Few H (None) /hpf Influenza Type A (PCR) Not Detected (Not Detectd) Influenza Type B (PCR) Not Detected (Not Detectd) RSV (PCR) Not Detected (Not Detectd) SARS-CoV-2 (PCR) Not Detected (Not Detectd) 11/06/24 Range/Units 17:23 WBC (3.8-10.6) k/uL RBC (3.80-5.40) m/uL Hgb (11.4-16.0) gm/dL Hct (34.0-46.0) % MCV (80.0-100.0) fL MCH (25.0-35.0) pg MCHC (31.0-37.0) g/dL RDW (11.5-15.5) % Plt Count (150-450) k/uL MPV Neutrophils % % Lymphocytes % % Monocytes % % Eosinophils % % Basophils % % Neutrophils # (1.3-7.7) k/uL Lymphocytes # (1.0-4.8) k/uL Monocytes # (0-1.0) k/uL Eosinophils # (0-0.7) k/uL Basophils # (0-0.2) k/uL Hypochromasia Anisocytosis PT (10.0-12.5) sec INR (<1.2) APTT (22.0-30.0) sec D-Dimer (<0.60) mg/L FEU Sodium (137-145) mmol/L Potassium (3.5-5.1) mmol/L Chloride (98-107) mmol/L Carbon Dioxide (22-30) mmol/L Anion Gap mmol/L BUN (7-17) mg/dL Creatinine (0.52-1.04) mg/dL Est GFR (CKD-EPI)AfAm (>60 ml/min/1.73 sqM) Est GFR (CKD-EPI)NonAf (>60 ml/min/1.73 sqM) Glucose (74-99) mg/dL Calcium (8.4-10.2) mg/dL Total Bilirubin (0.2-1.3) mg/dL AST (14-36) U/L ALT (4-34) U/L Alkaline Phosphatase (38-126) U/L Troponin I <0.012 (0.000-0.034) ng/mL NT-Pro-B Natriuret Pep pg/mL Total Protein (6.3-8.2) g/dL Albumin (3.5-5.0) g/dL TSH (0.465-4.680) mIU/L Urine Color Urine Appearance (Clear) Urine pH (5.0-8.0) Ur Specific Francis (1.001-1.035) Urine Protein (Negative) Urine Glucose (UA) (Negative) Urine Ketones (Negative) Urine Blood (Negative) Urine Nitrite (Negative) Urine Bilirubin (Negative) Urine Urobilinogen (<2.0) mg/dL Ur Leukocyte Esterase (Negative) Urine RBC (0-5) /hpf Urine WBC (0-5) /hpf Ur Squamous Epith Cells (0-4) /hpf Urine Bacteria (None) /hpf Urine Mucus (None) /hpf Influenza Type A (PCR) (Not Detectd) Influenza Type B (PCR) (Not Detectd) RSV (PCR) (Not Detectd) SARS-CoV-2 (PCR) (Not Detectd) Disposition Clinical Impression: Acute hypoxic respiratory failure, CHF exacerbation, COPD exacerbation, Cellulitis of left ankle Disposition: ADMITTED IP TO THIS HOSP Condition: Stable
[2024-11-06 14:59] LABS: Carbon Dioxide 40 mmol/L (22-30)
--- NOTE | 2024-11-06 15:02 | XR ---
EXAMINATION TYPE: XR chest 2V DATE OF EXAM: 11/06/2024 2:51 PM COMPARISON: Chest radiographs from 09/14/2024 CLINICAL INDICATION: Female, 64 years old with history of altered mental status; [facility] TECHNIQUE: XR chest 2V Frontal and lateral views of the chest. FINDINGS: Lungs/Pleura: Low lung volumes are present. There is no evidence of pleural effusion, focal consolida tion, or pneumothorax. Pulmonary vascularity: Unremarkable. Heart/mediastinum: Cardiomediastinal silhouette is prominent in size. Musculoskeletal: No acute osseous pathology. IMPRESSION: Low lung volumes with a generalized hazy appearance which could represent atelectasis versus pulmonar y edema correlate with serum BNP. [facility], , 11/06/2024 3:00 PM
--- NOTE | 2024-11-06 15:02 | US ---
EXAMINATION TYPE: US venous doppler duplex LE LT DATE OF EXAM: 11/06/2024 2:44 PM COMPARISON: 10/02/23 CLINICAL INDICATION: Female, 64 years old with history of swelling short of breath; SOB, altered ment al status, Pain TECHNIQUE: The lower extremity deep venous system is examined utilizing real time linear array sonog casandra with graded compression, color doppler sonography, and spectral doppler. SIDE PERFORMED: Left FINDINGS: VESSELS IMAGED: Common Femoral Vein Deep Femoral Vein Greater Saphenous Vein * Femoral Vein Popliteal Vein Small Saphenous Vein * Proximal Calf Veins (* superficial vessels) Left Leg: Negative for DVT, Color Doppler imaging shows patency of the vessels. Spectral waveforms a re within normal limits. IMPRESSION: No ultrasound evidence for deep venous thrombosis. [facility], , 11/06/2024 3:00 PM
[2024-11-06 15:07] LABS: Influenza A Not Detected (Not Detectd); Influenza B Not Detected (Not Detectd); RSV Not Detected (Not Detectd)
[2024-11-06] MEDS: IPRATROPIUM-ALBUTEROL 3 ML NEB INHALATION STA (16:15)
[2024-11-06 16:44] LABS: Appearance,Urine Turbid (Clear); Bacteria,Urine Occasional /hpf; Bilirubin,Urine Negative (Negative); Blood,Urine Negative (Negative); Color,Urine Yellow; Glucose,Urine (UA) Negative (Negative); Ketones,Urine 1+ (Negative); Leukocyte Esterase,Urine Negative (Negative); Mucus,Urine Few /hpf; Nitrite,Urine Positive (Negative); Protein,Urine 1+ (Negative); RBC,Urine <1 /hpf (0-5); Specific Gravity,Urine 1.025 (1.001-1.035); Squamous Epithelial Cell,Urine 1 /hpf (0-4); Urobilinogen,Urine <2.0 mg/dL (<2.0); WBC,Urine 1 /hpf (0-5)
--- NOTE | 2024-11-06 17:02 | CT ---
EXAMINATION TYPE: CT brain wo con DATE OF EXAM: 11/06/2024 4:44 PM COMPARISON: 09/10/2024.. CLINICAL INDICATION: Female, 64 years old with history of Altered mental status, ams TECHNIQUE: Brain: Axial CT images of the brain were obtained with coronal and sagittal reformats created and rev iewed. Contrast used: None. Oral contrast used: None. CT DLP: 1262.5 mGycm, Automated exposure control for dose reduction was used. FINDINGS: Brain: Extra-axial spaces: No abnormal extra-axial fluid collections. Ventricular system: Dilatation in proportion to cerebral atrophy. scattered falx lipomas noted. Cerebral parenchyma: Cerebral atrophy. No acute intraparenchymal hemorrhage or mass effect. The golden -white junction is well differentiated. Cerebellum: Unremarkable. Mass effect: No evidence of midline shift. Intracranial vasculature: unremarkable Soft tissues: Normal. Calvarium/osseous structures: No depressed skull fracture. Paranasal sinuses and mastoid air cells: Mild scattered paranasal sinus disease. Visualized orbits: Orbital contents are intact. IMPRESSION: No acute intracranial process. [facility], , 11/06/2024 4:59 PM
--- NOTE | 2024-11-06 17:16 | CT ---
EXAMINATION TYPE: CT angio chest DATE OF EXAM: 11/06/2024 4:45 PM COMPARISON: 11/06/2024 CLINICAL INDICATION: Female, 64 years old with history of elevated d-dimer; elevated d-dimer, SOB TECHNIQUE/CONTRAST: CTA scan of the thorax is performed with IV Contrast, patient injected with 100 mL of Isovue 370, MIP images are created and reviewed these are created on a separate workstation.. CT DLP: 1094.8 mGycm, Automated exposure control for dose reduction was used. FINDINGS: Respiratory motion limits evaluation. Lungs/Pleura: Increased interstitial prominence throughout the lungs. There is motion artifact throug hout the lungs. No evidence of focal consolidation, pleural effusion or pneumothorax. Mild interstiti al interlobular septal thickening. Airway: Large airways are patent. Heart: Mild enlargement of the lungs. Vasculature: There is no evidence for a filling defect within the pulmonary vasculature to suggest ac [place] pulmonary embolism. The pulmonary artery is of normal size. Mediastinum: No gross evidence of adenopathy. Musculoskeletal: No acute osseous abnormalities, scattered sclerotic foci throughout the osseous stru ctures. Soft Tissues/lymph nodes: Unremarkable. Lower neck: No significant findings. Upper Abdomen: No significant findings. IMPRESSION: Respiratory motion limited exam. 1. No evidence for pulmonary embolus. 2. Scattered sclerotic foci throughout the osseous structures correlate for malignancy and now likel y representing metastatic disease. 3. Mild cardiomegaly with some pulmonary vascular prominence. Correlate with BNP. 4. Coarsened interstitial lung changes with respiratory motion [facility], , 11/06/2024 5:13 PM
[2024-11-06] MEDS: CEFEPIME 2 GM in SODIUM CHLORIDE 0.9% 100 ML IVPB STA (17:19)
[2024-11-06] MEDS: ALBUTEROL NEBULIZED 2.5 MG/3 ML INHALATION SCH (17:51)
[2024-11-06] MEDS: IPRATROPIUM 0.5 MG/2.5 ML NEBU INHALATION STA (17:52)
[2024-11-06] MEDS: methylPREDNISolone SOD SUCCI 125 MG/2 ML VIAL IV STA (17:54)
[2024-11-06] MEDS: FUROSEMIDE 10 MG/ML 4 ML VIAL IV STA (17:57)
[2024-11-06] MEDS: AZITHROMYCIN 500 MG in SODIUM CHLORIDE 0.9% 250 ML IVPB STA (17:58)
[2024-11-06] MEDS ORDERED: LACTULOSE 20 GM/30 ML CUP PO PRN (20:38)
[2024-11-06] MEDS ORDERED: NA PHOS,M-B/NA PHOS,DI-BA 133 ML ENEMA RECTAL PRN (20:38)
[2024-11-06] MEDS ORDERED: LOPERAMIDE 2 MG CAP PO PRN (20:38)
[2024-11-06] MEDS ORDERED: bisacodyL 10 MG SUPP RECTAL PRN (20:38)
[2024-11-06] MEDS ORDERED: MAGNESIUM HYDROXIDE 2,400 MG/30 ML CUP PO PRN (20:38)
[2024-11-06] MEDS: DIVALPROEX ER 250 MG TAB.ER.24H PO SCH (22:22)
[2024-11-06] MEDS: cloZAPine 100 MG TAB PO SCH (22:22)
[2024-11-06] MEDS: DIVALPROEX ER 500 MG TAB.ER.24H PO SCH (22:22)
[2024-11-06] MEDS: ATORVASTATIN 20 MG TAB PO SCH (22:23)
[2024-11-07] MEDS ORDERED: IPRATROPIUM-ALBUTEROL 3 ML NEB INHALATION SCH
[2024-11-07] MEDS: IPRATROPIUM-ALBUTEROL 3 ML NEB INHALATION SCH ×2 (03:00→20:20)
[2024-11-07] MEDS: BUDESONIDE 1 MG/2 ML NEBU INHALATION SCH (07:47)
[2024-11-07] MEDS ORDERED: SYMBICORT 160-4.5 MCG INHALER INHALATION SCH (08:00)
[2024-11-07] MEDS: INSULIN DETEMIR (LEVEMIR) 100 UNIT/ML SYR SQ SCH (09:30)
[2024-11-07] MEDS: ASPIRIN 81 MG PO SCH (09:30)
[2024-11-07] MEDS: THIAMINE 100 MG TAB PO SCH (09:30)
[2024-11-07 09:31] LABS: Glucose,Whole Blood 210 mg/dL (70-110)
[2024-11-07] MEDS: RIVAROXABAN 10 MG TAB PO SCH (09:31)
[2024-11-07] MEDS: FOLIC ACID 1 MG TAB PO SCH (09:31)
[2024-11-07] MEDS: metFORMIN 500 MG TAB PO SCH (09:31)
[2024-11-07] MEDS: LINAGLIPTIN 5 MG TABLET PO SCH (09:31)
[2024-11-07] MEDS: FUROSEMIDE 20 MG TAB PO SCH (09:31)
[2024-11-07] MEDS ORDERED: DEXTROSE 50% SYRINGE 50 ML IVP PRN ×2 (09:40)
--- NOTE | 2024-11-07 09:49 | P.HPIM ---
History of Present Illness This is a pleasant 64 years old male with past medical history of multiple medical problems as below. Patient currently on BiPAP and confused and drowsy and cannot provide information On admission patient was saturating 391% on 3 L. Later on to get worse saturating dropped to 84% on 4 L and she was tachypneic, currently she is placed on BiPAP. As per documents patient was transferred from [place] for altered mental status, she woke up but she was lethargic. #1 suspecting she has pneumonia and she is on 3 L oxygen Patient is afebrile vitals are stable Labs showing mild anemia with hemoglobin 10.7, other labs were unremarkable CBC, BMP, LFT, INR. Troponin x 2 are negative. Urine analysis is positive for nitrite. TSH is normal at 0.9 Influenza A and type B, RSV, SARS (coronavirus) are undetected Chest x-ray: No acute process EKG showing sinus rhythm at [address]-T changes D-dimer elevated at 0.8 CTA of the chest is negative for PE but showing scattered sclerotic foci suspicious for malignancy and metastatic disease associated with mild cardiomegaly and pulmonary vascular congestion CT of the brain is negative for acute process. In emergency room patient received antibiotics cefepime and Zithromax Review of Systems Review of systems CONSTITUTIONAL: No fever, no malaise, no fatigue. HEENT: No recent visual problems or hearing problems. Denied any sore throat. CARDIOVASCULAR: No orthopnea, PND, no palpitations, no syncope. PULMONARY: No shortness of breath, no cough, no hemoptysis. GASTROINTESTINAL: No diarrhea, no nausea, no vomiting, no abdominal pain. Normoactive bowel sounds. NEUROLOGICAL: No headaches, no weakness, no numbness. HEMATOLOGICAL: Denies any bleeding or petechiae. GENITOURINARY: Denies any burning micturition, frequency, or urgency. MUSCULOSKELETAL/RHEUMATOLOGICAL: Denies any joint pain, swelling, or any muscle pain. ENDOCRINE: Denies any polyuria or polydipsia. Past Medical History Past Medical History: COPD, Diabetes Mellitus, Hyperlipidemia, Hypertension Additional Past Medical History / Comment(s): NIDDM type II, FALLS, chronic bilateral lower extremity edema, constipation. Per [facility] patient takes Xaralto for DVT prophylaxis, no HX DVT/PE, Patietn also wears 2-4LNC, and has body tremors History of Any Multi-Drug Resistant Organisms: None Reported Past Surgical History: Section Additional Past Surgical History / Comment(s): colonoscopy/benign polypectomy Past Anesthesia/Blood Transfusion Reactions: No Reported Reaction Past Psychological History: Schizophrenia Smoking Status: Former smoker Past Alcohol Use History: None Reported Past Drug Use History: None Reported - Past Family History family Family Medical History: Unable to Obtain Medications and Allergies Home Medications Medication Instructions Recorded Confirmed Type Ergocalciferol [Vitamin D2 50,000 unit PO SA@1700 09/02/19 11/06/24 History (DRISDOL)] Linagliptin [Tradjenta] 5 mg PO DAILY@0800 04/20/11/06/24 History Ipratropium-Albuterol Nebulize 3 ml INHALATION RT-QID@00,,,04/12/21 11/06/24 History [Duoneb 0.5 mg-3 mg/3 ml Soln] Atorvastatin Calcium [Lipitor] 20 mg PO HS@2100 11/05/21 11/06/24 History Budesonide-Formot 160-4.5 Mcg 2 puff INHALATION RT-BID@,11/05/21 11/06/24 History [Symbicort 160-4.5 Mcg Inhaler] metFORMIN HCL [Glucophage] 1,000 mg PO BID@0800,1700 11/05/21 11/06/24 History Acetaminophen [Tylenol] 500 mg PO Q6H PRN #0 11/16/21 11/06/24 Rx Ascorbic Acid [Vitamin C] 500 mg PO BID@0800,1700 12/07/21 11/06/24 History Aspirin 81 mg PO DAILY@0800 12/07/21 11/06/24 History Famotidine [Pepcid] 20 mg PO DAILY@0800 12/07/21 11/06/24 History Rivaroxaban [Xarelto] 10 mg PO DAILY@0800 12/07/21 11/06/24 History Zinc Sulfate [Orazinc] 220 mg PO DAILY@1700 12/07/21 11/06/24 History Lactulose [Cephulac] 20 gm PO DAILY PRN ml 12/11/21 11/06/24 Rx Furosemide [Lasix] 20 mg PO BID@0800,1700 10/01/23 11/06/24 History Magnesium Hydroxide [Milk of 7,200 mg PO DAILY PRN 10/01/23 11/06/24 History Magnesia Concentrate] Na Phos,M-B/Na Phos,Di-Ba [Fleet 133 ml RECTAL DAILY PRN 10/01/23 11/06/24 His tory Adult] bisacodyL [Dulcolax] 10 mg RECTAL DAILY PRN 10/01/23 11/06/24 History cloZAPine [Clozaril] 200 mg PO HS@209910/01/23 11/06/24 History predniSONE 10 mg PO DAILY@0800 10/01/23 11/06/24 History Divalproex ER [Depakote ER] 250 mg PO HS@209909/09/24 11/06/24 History Divalproex ER [Depakote ER] 500 mg PO BID@0800,2100 09/09/24 11/06/24 History Insulin Degludec [Tresiba 10 units SQ DAILY@0800 09/09/24 11/06/24 History Flextouch U-100 Pen] Insulin Lispro [Admelog] 7 units SQ BID@0800,1700 09/09/24 11/06/24 History Insulin Lispro [Admelog] 10 units SQ DAILY@1200 09/09/24 11/06/24 History Insulin Lispro [Admelog] See Protocol SQ AC-TID@07,11,1630 09/09/24 11/06/24 History Loperamide [Imodium] 2 - 4 mg PO TID PRN MDD 8mg 09/09/24 11/06/24 History Multivitamins, Thera [Multivitamin 1 each PO DAILY@1200 tab 09/18/24 11/06/24 Rx (formulary)] Nystatin 100,000 Unit/gm Powd 1 applic TOPICAL TID PRN each 09/18/24 11/06/24 Rx [Mycostatin Powder] Folic Acid 1 mg PO DAILY@0800 11/06/24 11/06/24 History Thiamine [Vitamin B-1] 100 mg PO DAILY@0800 11/06/24 11/06/24 History Allergies Allergy/AdvReac Type Severity Reaction Status Date / Time honey Allergy Unknown Verified 11/06/24 16:48 latex Allergy Unknown Verified 11/06/24 16:48 risperidone [From Risperdal] Allergy Unknown Verified 11/06/24 16:48 whey Allergy Unknown Verified 11/06/24 16:48 Physical Exam Vitals: Vital Signs Temp Pulse Resp BP Pulse Ox FiO2 11/07/24 08:00 60 11/07/24 07:47 74 11/07/24 07:44 55 11/07/24 06:00 72 18 115/64 95 11/07/24 04:09 50 11/07/24 04:00 70 18 124/74 96 11/07/24 03:11 72 11/07/24 03:00 70 11/07/24 02:31 72 10 L 118/67 94 L 11/07/24 00:25 50 11/07/24 00:09 78 20 138/71 96 11/06/24 22:27 82 20 128/62 94 L 11/06/24 21:14 80 23 117/64 95 11/06/24 20:49 50 11/06/24 20:30 80 26 H 119/58 84 L 11/06/24 18:06 96 11/06/24 18:00 100 11/06/24 17:52 96 11/06/24 16:34 96 20 125/73 92 L 11/06/24 16:23 100 11/06/24 16:15 98 11/06/24 14:41 87 16 116/61 92 L 11/06/24 13:35 98.3 F 93 16 119/57 91 L -GENERAL: The patient is very drowsy while on BiPAP. Morbidly obese HEENT: Pupils are round and equally reacting to light. EOMI. No scleral icterus. No conjunctival pallor. Normocephalic, atraumatic. No pharyngeal erythema. No thyromegaly. CARDIOVASCULAR: S1 and S2 present. No murmurs, rubs, or gallops. -PULMONARY: Chest is clear to auscultation, no wheezing , no crackles. On BiPAP machine ABDOMEN: Soft, nontender, nondistended, normoactive bowel sounds. No palpable organomegaly. MUSCULOSKELETAL: No joint swelling or deformity. EXTREMITIES: No cyanosis, clubbing, or pedal edema. NEUROLOGICAL: Gross neurological examination did not reveal any focal deficits. SKIN: No rashes. no petechiae. Results CBC & Chem 7: 11/06/24 14:06 11/06/24 14:06 Labs: Abnormal Lab Results - Last 24 Hours (Table) 11/06/24 11/06/24 11/06/24 Range/Units 14:06 14:06 14:06 RBC 3.71 L (3.80-5.40) m/uL Hgb 10.8 L (11.4-16.0) gm/dL RDW 17.0 H (11.5-15.5) % D-Dimer 0.82 H (<0.60) mg/L FEU Chloride 93 L (98-107) mmol/L Carbon Dioxide 40 H (22-30) mmol/L Glucose 149 H (74-99) mg/dL Alkaline Phosphatase 181 H (38-126) U/L Total Protein 5.8 L (6.3-8.2) g/dL Urine Appearance (Clear) Urine Protein (Negative) Urine Ketones (Negative) Urine Nitrite (Negative) Urine Bacteria (None) /hpf Urine Mucus (None) /hpf 11/06/24 Range/Units 14:26 RBC (3.80-5.40) m/uL Hgb (11.4-16.0) gm/dL RDW (11.5-15.5) % D-Dimer (<0.60) mg/L FEU Chloride (98-107) mmol/L Carbon Dioxide (22-30) mmol/L Glucose (74-99) mg/dL Alkaline Phosphatase (38-126) U/L Total Protein (6.3-8.2) g/dL Urine Appearance Turbid H (Clear) Urine Protein 1+ H (Negative) Urine Ketones 1+ H (Negative) Urine Nitrite Positive H (Negative) Urine Bacteria Occasional H (None) /hpf Urine Mucus Few H (None) /hpf Assessment and Plan Assessment: Altered mental status could be metabolic/toxic encephalopathy. Given history of seizure and possible metastatic disease we need to rule out intracranial causes Acute hypoxic respiratory failure CTA of the chest showing no PE but scattered sclerotic foci suspicious for metastatic disease Possible mild CHF, unknown ejection fraction Possible acute urinary tract infection, patient cannot provide information currently Schizophrenia Seizure disorder Hypertension Hyperlipidemia Diabetes mellitus Morbid obesity with BMI of 47 Plan: Continue with BiPAP Continue with oxygen therapy per pulmonary team Pulmonary and culture team consult Start ceftriaxone follow-up urine culture Neurology consult Resume home medication like clozapine and Depakote Continue with diabetic medication but monitor glucose closely Labs and medication were reviewed.. Continue same treatment. Continue with symptomatic treatment. Resume home medication. Monitor labs and vitals. DVT and GI prophylaxis. Further recommendations as per clinical course of the patient DVT prophylaxis: Xarelto GI Prophylaxis: Pepcid PT/OT: Pending Prognosis is guarded
[2024-11-07] MEDS: FUROSEMIDE 10 MG/ML 4 ML VIAL IV SCH (11:01)
[2024-11-07] MEDS: MULTIVITAMINS, THERA 1 EACH TAB PO SCH (11:02)
[2024-11-07 11:08] LABS: Glucose,Whole Blood 190 mg/dL (70-110)
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
[2024-11-07 11:53] LABS: ABG Base Excess 16.1 mmol/L; ABG Oxygen Saturation 95.1 % (94-97); ABG PCO2 67 mmHg (35-45); ABG PH 7.42 (7.35-7.45); ABG PO2 75 mmHg (83-108); ABG TCO2 46 mmol/L (19-24); Allen Test Performed? Yes
[2024-11-07 12:18] LABS: ABG HCO3 44 mmol/L (21-25)
[2024-11-07] MEDS: INSULIN ASPART (NovoLOG) 100 UNIT/ML VIAL SQ SCH (14:21)
--- NOTE | 2024-11-07 14:38 | P.CNPUL ---
History of Present Illness Consult date: 11/07/24 Reason for consult: dyspnea History of present illness: This is a 64-year-old female patient is being seen in consultation as the patient presented to the hospital with altered mentation with some ongoing hypoxemia. The patient is known to have COPD with chronic hypoxic respiratory failure. She is morbidly obese with a BMI of 47.0. She is oxygen dependent. She is also known to have diabetes mellitus, hyperlipidemia and schizophrenia. She is a long-term resident at [facility]. At the time of her admission, the patient was placed on a nonrebreather facemask and subsequently the patient was transition to BiPAP. EKG showed a normal sinus rhythm. Chest x-ray showed smaller lung volumes and generalized hazy appearance atelectasis and component of pulm vessel congestion/edema. CT of the chest showed no evidence of any pulmonary embolism. There was scattered sclerotic foci throughout the osseous structures correlated with possible malignancy. Mild cardiomegaly. Mild pulm vessel congestion. There was motion artifact. CAT scan of the brain was negative. The white cell count was at 7.5 with a hemoglobin 10.8 and a D-dimer of 0.82. Sodium is at 140, potassium is 3.9, serum bicarb is at 40 with a BUN of 17 and a creatinine of 0.6. proBNP level was 915. Troponins were negative. Viral 4 Plex was negative. The blood gas was also obtained that showed a chronic hypercapnic respiratory failure with a pH of 7.42 with a pCO2 of 67 and pO2 of 75. UA showed +1 ketones, +1 protein, no infections. The patient is currently on DuoNeb nebulized treatments [id number]. She was started on IV Rocephin. She was started on Lasix 40 mg IV every 12 hours. She is also on Levemir insulin 10 units daily and sliding scale insulin coverage. She has been maintained on long-term anticoagulation with Xarelto.Doppler of the lower extremities were negative for DVT. D-dimer is at 0.82. Review of Systems ROS unobtainable: due to mental status Past Medical History Past Medical History: COPD, Diabetes Mellitus, Hyperlipidemia, Hypertension Additional Past Medical History / Comment(s): NIDDM type II, FALLS, chronic b ilateral lower extremity edema, constipation. Per [facility] patient takes Xaralto for DVT prophylaxis, no HX DVT/PE, Patietn also wears 2-4LNC, and has body tremors History of Any Multi-Drug Resistant Organisms: None Reported Past Surgical History: Section Additional Past Surgical History / Comment(s): colonoscopy/benign polypectomy Past Anesthesia/Blood Transfusion Reactions: No Reported Reaction Past Psychological History: Schizophrenia Smoking Status: Former smoker Past Alcohol Use History: None Reported Past Drug Use History: None Reported - Past Family History family Family Medical History: Unable to Obtain Medications and Allergies Home Medications Medication Instructions Recorded Confirmed Type Ergocalciferol [Vitamin D2 50,000 unit PO SA@1700 09/02/19 11/06/24 History (DRISDOL)] Linagliptin [Tradjenta] 5 mg PO DAILY@0800 04/20/20 11/06/24 History Ipratropium-Albuterol Nebulize 3 ml INHALATION RT-QID@00,06,12,18 04/12/21 11/06/24 History [Duoneb 0.5 mg-3 mg/3 ml Soln] Atorvastatin Calcium [Lipitor] 20 mg PO HS@2100 11/05/21 11/06/24 History Budesonide-Formot 160-4.5 Mcg 2 puff INHALATION RT-BID@08,17 11/05/21 11/06/24 History [Symbicort 160-4.5 Mcg Inhaler] metFORMIN HCL [Glucophage] 1,000 mg PO BID@0800,1700 11/05/21 11/06/24 History Acetaminophen [Tylenol] 500 mg PO Q6H PRN #0 11/16/21 11/06/24 Rx Ascorbic Acid [Vitamin C] 500 mg PO BID@0800,1700 12/07/21 11/06/24 History Aspirin 81 mg PO DAILY@0800 12/07/21 11/06/24 History Famotidine [Pepcid] 20 mg PO DAILY@0812/07/21 11/06/24 History Rivaroxaban [Xarelto] 10 mg PO DAILY@0800 12/07/21 11/06/24 History Zinc Sulfate [Orazinc] 220 mg PO DAILY@1700 12/07/21 11/06/24 History Lactulose [Cephulac] 20 gm PO DAILY PRN ml 12/11/21 11/06/24 Rx Furosemide [Lasix] 20 mg PO BID@0800,1700 10/01/23 11/06/24 History Magnesium Hydroxide [Milk of 7,200 mg PO DAILY PRN 10/01/23 11/06/24 History Magnesia Concentrate] Na Phos,M-B/Na Phos,Di-Ba [Fleet 133 ml RECTAL DAILY PRN 10/01/23 11/06/24 History Adult] bisacodyL [Dulcolax] 10 mg RECTAL DAILY PRN 10/01/23 11/06/24 History cloZAPine [Clozaril] 200 mg PO HS@2100 10/01/23 11/06/24 History predniSONE 10 mg PO DAILY@0800 10/01/23 11/06/24 History Divalproex ER [Depakote ER] 250 mg PO HS@209909/09/24 11/06/24 History Divalproex ER [Depakote ER] 500 mg PO BID@0800,2100 09/09/24 11/06/24 History Insulin Degludec [Tresiba 10 units SQ DAILY@0800 09/09/24 11/06/24 History Flextouch U-100 Pen] Insulin Lispro [Admelog] 7 units SQ BID@0800,1700 09/09/24 11/06/24 History Insulin Lispro [Admelog] 10 units SQ DAILY@1200 09/09/24 11/06/24 History Insulin Lispro [Admelog] See Protocol SQ AC-TID@07,11,1630 09/09/24 11/06/24 History Loperamide [Imodium] 2 - 4 mg PO TID PRN MDD 8mg 09/09/24 11/06/24 History Multivitamins, Thera [Multivitamin 1 each PO DAILY@1200 tab 09/18/24 11/06/24 Rx (formulary)] Nystatin 100,000 Unit/gm Powd 1 applic TOPICAL TID PRN each 09/18/24 11/06/24 Rx [Mycostatin Powder] Folic Acid 1 mg PO DAILY@0800 11/06/24 11/06/24 History Thiamine [Vitamin B-1] 100 mg PO DAILY@0800 11/06/24 11/06/24 History Allergies Allergy/AdvReac Type Severity Reaction Status Date / Time honey Allergy Unknown Verified 11/06/24 16:48 latex Allergy Unknown Verified 11/06/24 16:48 risperidone [From Risperdal] Allergy Unknown Verified 11/06/24 16:48 whey Allergy Unknown Verified 11/06/24 16:48 Physical Exam Vitals: Vital Signs Pulse Resp BP Pulse Ox FiO2 11/07/24 12:03 94 L 11/07/24 12:01 92 11/07/24 12:00 77 19 134/61 92 L 11/07/24 11:49 78 11/07/24 11:46 55 11/07/24 09:00 82 17 122/57 97 11/07/24 08:00 60 11/07/24 07:47 74 11/07/24 07:44 55 11/07/24 06:00 72 18 115/64 95 11/07/24 04:09 50 11/07/24 04:00 70 18 124/74 96 11/07/24 03:11 72 11/07/24 03:00 70 11/07/24 02:31 72 10 L 118/67 94 L 11/07/24 00:25 50 11/07/24 00:09 78 20 138/71 96 11/06/24 22:27 82 20 128/62 94 L 11/06/24 21:14 80 23 117/64 95 11/06/24 20:49 50 11/06/24 20:30 80 26 H 119/58 84 L 11/06/24 18:06 96 11/06/24 18:00 100 11/06/24 17:52 96 11/06/24 16:34 96 20 125/73 92 L 11/06/24 16:23 100 11/06/24 16:15 98 11/06/24 14:41 87 16 116/61 92 L GENERAL EXAM: Alert, 64-year-old female, on BiPAP for respiratory support HEAD: Normocephalic. EYES: Normal reaction of pupils, equal size. NOSE: Clear with pink turbinates. THROAT: No erythema or exudates. NECK: No masses, no JVD. CHEST: No chest wall deformity. LUNGS: Equal air entry with bilateral scattered rhonchi. CVS: S1 and S2 normal with an audible murmur, regular rhythm. ABDOMEN: No hepatosplenomegaly, normal bowel sounds, no guarding or rigidity. SPINE: No scoliosis or deformity SKIN: No rashes CENTRAL NERVOUS SYSTEM: No focal deficits, tone is normal in all 4 extremities. Diminished level of consciousness and neurologic exam is nonfocal. EXTREMITIES: There is 1-2+ chronic peripheral edema. No clubbing, no cyanosis. Peripheral pulses are intact. Results - Laboratory Findings CBC and BMP: 11/06/24 14:06 11/06/24 14:06 ABG ABG pH 7.42 (7.35-7.45) 11/07/24 11:47 ABG pCO2 67 mmHg (35-45) H 11/07/24 11:47 ABG pO2 75 mmHg (83-108) L 11/07/24 11:47 ABG O2 Saturation 95.1 % (94-97) 11/07/24 11:47 PT/INR, D-dimer PT 10.5 sec (10.0-12.5) 11/06/24 14:06 INR 0.9 (<1.2) 11/06/24 14:06 D-Dimer 0.82 mg/L FEU (<0.60) H 11/06/24 14:06 Abnormal lab findings: Abnormal Labs 11/06/24 11/06/24 11/06/24 14:06 14:06 14:06 RBC 3.71 L Hgb 10.8 L RDW 17.0 H D-Dimer 0.82 H ABG pCO2 ABG pO2 ABG HCO3 ABG Total CO2 Hemoglobin Chloride 93 L Carbon Dioxide 40 H Glucose 149 H POC Glucose (mg/dL) Alkaline Phosphatase 181 H Total Protein 5.8 L Urine Appearance Urine Protein Urine Ketones Urine Nitrite Urine Bacteria Urine Mucus 11/06/24 11/07/24 11/07/24 14:26 09:30 11:06 RBC Hgb RDW D-Dimer ABG pCO2 ABG pO2 ABG HCO3 ABG Total CO2 Hemoglobin Chloride Carbon Dioxide Glucose POC Glucose (mg/dL) 210 H 190 H Alkaline Phosphatase Total Protein Urine Appearance Turbid H Urine Protein 1+ H Urine Ketones 1+ H Urine Nitrite Positive H Urine Bacteria Occasional H Urine Mucus Few H 11/07/24 11:47 RBC Hgb RDW D-Dimer ABG pCO2 67 H ABG pO2 75 L ABG HCO3 44 H* ABG Total CO2 46 H Hemoglobin 11.1 L Chloride Carbon Dioxide Glucose POC Glucose (mg/dL) Alkaline Phosphatase Total Protein Urine Appearance Urine Protein Urine Ketones Urine Nitrite Urine Bacteria Urine Mucus Assessment and Plan Plan: Altered mental status under investigation. Rule out metabolic factors and the blood gases showing chronic compensated respiratory acidosis. Patient was hypoxic at the time of admission could be attributed to a component of COPD and mild CHF with diastolic failure.CAT scan of the chest was reviewed and there is no evidence of any pulmonary embolism. There is motion artifact and there is COPD and mild pulm venous congestion. The patient was started on bronchodilators and IV Lasix. Started on empiric antibiotic coverage with IV Rocephin Acute on chronic hypoxic/hypercapnic respiratory failure, currently on a BiPAP Acute exacerbation of chronic obstructive pulmonary disease. Suspect CHF with diastolic heart failure, proBNP level is mildly elevated History of chronic tobacco dependence. schizophrenia. Diabetes mellitus, type II. History of seizures. Chronic lower extremity edema. Repeated Dopplers have been negative for DVT and the patient has been maintained on Xarelto Hypertension. Hyperlipidemia. snf resident with an impaired based on performance and functional status Previous history of COVID-19 infection, 2021 in 2022, x 2 Plan: Continue BiPAP for respiratory support Follow-up blood gases Monitor mental status Continue DuoNeb the regiment [id number] Continue IV Rocephin IV Lasix 40 mg every 12 hours Obtain echocardiogram CAT scan of the brain has been negative Levemir insulin for blood sugar control Resume home medications continue Xarelto Will continue to follow
[2024-11-07 17:57] LABS: Glucose,Whole Blood 129 mg/dL (70-110)
[2024-11-07] MEDS: ZINC SULFATE 220 MG CAP PO SCH (18:31)
[2024-11-07 20:11] LABS: Glucose,Whole Blood 149 mg/dL (70-110)
[2024-11-07] MEDS: FAMOTIDINE 20 MG/2 ML VIAL IV SCH (21:29)
[2024-11-08 06:11] LABS: Glucose,Whole Blood 151 mg/dL (70-110)
[2024-11-08 06:34] LABS: Anisocytosis Slight; Basophils % (A) 0 %; Eosinophils % (A) 1 %; HCT 32.7 % (34.0-46.0); Hypochromasia Marked; Lymphocytes # (A) 1.2 k/uL (1.0-4.8); Lymphocytes % (A) 15 %; MCH 28.4 pg (25.0-35.0); MCHC 30.7 g/dL (31.0-37.0); MCV 92.7 fL (80.0-100.0); Mean Platelet Volume 7.7; Monocytes # (A) 0.7 k/uL (0-1.0); Monocytes % (A) 9 %; Neutrophils % (A) 74 %; Platelet Count 244 k/uL (150-450); RBC 3.53 m/uL (3.80-5.40); RDW 17.2 % (11.5-15.5); WBC 8.1 k/uL (3.8-10.6)
[2024-11-08 06:43] LABS: African American GFR (CKD) >90 (>60 ml/min/1.73 sqM); Blood Urea Nitrogen 21 mg/dL (7-17); Calcium 8.4 mg/dL (8.4-10.2); Chloride 95 mmol/L (98-107); Glucose 142 mg/dL (74-99); Non-African American GFR(CKD) 87 (>60 ml/min/1.73 sqM); Potassium 3.5 mmol/L (3.5-5.1); Sodium 141 mmol/L (137-145)
[2024-11-08 06:50] LABS: Anion Gap 4 mmol/L
[2024-11-08 07:41] LABS: Carbon Dioxide 42 mmol/L (22-30)
[2024-11-08 11:33] LABS: Glucose,Whole Blood 147 mg/dL (70-110)
[2024-11-08] MEDS: POTASSIUM CHLORIDE ER 20 MEQ TAB.ER PO STA (13:33)
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
[2024-11-08 16:22] LABS: Glucose,Whole Blood 252 mg/dL (70-110)
[2024-11-08] MEDS: FUROSEMIDE 20 MG TAB PO SCH (16:22)
--- NOTE | 2024-11-08 16:50 | P.PN ---
Subjective Progress Note Date: 11/08/24 This is a 64-year-old female patient is being seen in consultation as the patient presented to the hospital with altered mentation with some ongoing hypoxemia. The patient is known to have COPD with chronic hypoxic respiratory failure. She is morbidly obese with a BMI of 47.0. She is oxygen dependent. She is also known to have diabetes mellitus, hyperlipidemia and schizophrenia. She is a long-term resident at [facility]. At the time of her admission, the patient was placed on a nonrebreather facemask and subsequently the patient was transition to BiPAP. EKG showed a normal sinus rhythm. Chest x-ray showed smaller lung volumes and generalized hazy appearance atelectasis and component of pulm vessel congestion/edema. CT of the chest showed no evidence of any pulmonary embolism. There was scattered sclerotic foci throughout the osseous structures correlated with possible malignancy. Mild cardiomegaly. Mild pulm vessel congestion. There was motion artifact. CAT scan of the brain was negative. The white cell count was at 7.5 with a hemoglobin 10.8 and a D-dimer of 0.82. Sodium is at 140, potassium is 3.9, serum bicarb is at 40 with a BUN of 17 and a creatinine of 0.6. proBNP level was 915. Troponins were negative. Viral 4 Plex was negative. The blood gas was also obtained that showed a chronic hypercapnic respiratory failure with a pH of 7.42 with a pCO2 of 67 and pO2 of 75. UA showed +1 ketones, +1 protein, no infections. The patient is currently on DuoNeb nebulized treatments [id number]. She was started on IV Rocephin. She was started on Lasix 40 mg IV every 12 hours. She is also on Levemir insulin 10 units daily and sliding scale insulin coverage. She has been maintained on long-term anticoagulation with Xarelto.Doppler of the lower extremities were negative for DVT. D-dimer is at 0.82. The patient is seen today November 08, 2024 in follow-up on the selective care unit. She is currently sitting up in bed. Awake and alert in no acute di stress. A drug safety assistant is at the bedside. She is maintaining good O2 saturations in the mid 90s on 5 L high flow nasal cannula. She has been afebrile. Hemodynamically stable. White count 8.1. Hemoglobin 10.0. Platelets 244. Sodium 141. Potassium 3.5. Bicarb 42. BUN 21. Creatinine 0.74. Glucose 142. She remains on DuoNeb inhalations, Pulmicort inhalations. Antibiotics in the form of ceftriaxone. She remains on oral diuretics. Anticoagulated with Xarelto. Objective - Vital Signs Vital signs: Vital Signs Temp 98.2 F 11/08/24 16:20 Pulse 84 11/08/24 16:20 Resp 18 11/08/24 16:20 BP 124/75 11/08/24 16:20 Pulse Ox 95 11/08/24 16:20 FiO2 55 11/07/24 11:46 Intake & Output 11/07/24 11/08/24 11/08/24 18:59 06:59 18:59 Output Total 450 Balance -450 Weight 136.078 kg 126 kg 126 kg Output: Urine 450 Other: Voiding Method External Catheter External Catheter External Catheter # Voids 1 # Bowel Movements 1 1 - Exam GENERAL EXAM: Alert, 64-year-old female, on 6 L high flow nasal cannula. HEAD: Normocephalic. EYES: Normal reaction of pupils, equal size. NOSE: Clear with pink turbinates. THROAT: No erythema or exudates. NECK: No masses, no JVD. CHEST: No chest wall deformity. LUNGS: Equal air entry with bilateral scattered rhonchi. CVS: S1 and S2 normal with an audible murmur, regular rhythm. ABDOMEN: No hepatosplenomegaly, normal bowel sounds, no guarding or rigidity. SPINE: No scoliosis or deformity SKIN: No rashes CENTRAL NERVOUS SYSTEM: No focal deficits, tone is normal in all 4 extremities. EXTREMITIES: There is 1-2+ chronic peripheral edema. No clubbing, no cyanosis. Peripheral pulses are intact. - Labs CBC & Chem 7: 11/08/24 06:17 11/08/24 06:17 Labs: Abnormal Lab Results - Last 24 Hours (Table) 11/07/24 11/07/24 11/08/24 Range/Units 17:55 20:08 06:10 RBC (3.80-5.40) m/uL Hgb (11.4-16.0) gm/dL Hct (34.0-46.0) % MCHC (31.0-37.0) g/dL RDW (11.5-15.5) % Chloride (98-107) mmol/L Carbon Dioxide (22-30) mmol/L BUN (7-17) mg/dL Glucose (74-99) mg/dL POC Glucose (mg/dL) 129 H 149 H 151 H (70-110) mg/dL Hemoglobin A1c (<=6.0) % 11/08/24 11/08/24 11/08/24 Range/Units 06:17 06:17 06:17 RBC 3.53 L (3.80-5.40) m/uL Hgb 10.0 L (11.4-16.0) gm/dL Hct 32.7 L (34.0-46.0) % MCHC 30.7 L (31.0-37.0) g/dL RDW 17.2 H (11.5-15.5) % Chloride 95 L (98-107) mmol/L Carbon Dioxide 42 H* (22-30) mmol/L BUN 21 H (7-17) mg/dL Glucose 142 H (74-99) mg/dL POC Glucose (mg/dL) (70-110) mg/dL Hemoglobin A1c 6.5 H (<=6.0) % 11/08/24 11/08/24 Range/Units 11:31 16:21 RBC (3.80-5.40) m/uL Hgb (11.4-16.0) gm/dL Hct (34.0-46.0) % MCHC (31.0-37.0) g/dL RDW (11.5-15.5) % Chloride (98-107) mmol/L Carbon Dioxide (22-30) mmol/L BUN (7-17) mg/dL Glucose (74-99) mg/dL POC Glucose (mg/dL) 147 H 252 H (70-110) mg/dL Hemoglobin A1c (<=6.0) % Assessment and Plan Assessment: Altered mental status under investigation. Rule out metabolic factors and the blood gases showing chronic compensated respiratory acidosis. Patient was hypoxic at the time of admission could be attributed to a component of COPD and mild CHF with diastolic failure.CAT scan of the chest was reviewed and there is no evidence of any pulmonary embolism. There is motion artifact and there is COPD and mild pulm venous congestion. The patient was started on bronchodilators and Lasix. Started on empiric antibiotic coverage with IV Rocephin Acute on chronic hypoxic/hypercapnic respiratory failure, currently on 6 L high flow nasal cannula Acute exacerbation of chronic obstructive pulmonary disease. Suspect CHF with diastolic heart failure, proBNP level is mildly elevated History of chronic tobacco dependence. schizophrenia. Diabetes mellitus, type II. History of seizures. Chronic lower extremity edema. Repeated Dopplers have been negative for DVT and the patient has been maintained on Xarelto Hypertension. Hyperlipidemia. [facility] resident with an impaired based on performance and functional status Previous history of COVID-19 infection, 2021 in 2022, x 2 Plan: The patient was seen and evaluated Labs and medications reviewed More awake and alert On 6 L high flow nasal cannula Titrate down the FiO2 as tolerated Continue bronchodilators Xarelto for anticoagulation Continue diuretics supply and distribution manager at the bedside We will continue to follow I have personally seen and examined the patient, performed the documentation and the assessment and plan as written. Number of minutes spent on the visit: 10 Dictation was produced using [employer] dictation software. Please excuse any grammatical, word or spelling errors.
[2024-11-08 19:58] LABS: Glucose,Whole Blood 132 mg/dL (70-110)
[2024-11-08 22:07] LABS: Glucose,Whole Blood 112 mg/dL (70-110)
[2024-11-09] MEDS: VALPROATE SODIUM 750 MG in SODIUM CHLORIDE 0.9% 50 ML IVPB SCH (01:37)
[2024-11-09 05:41] LABS: Glucose,Whole Blood 149 mg/dL (70-110)
[2024-11-09 07:54] LABS: African American GFR (CKD) >90 (>60 ml/min/1.73 sqM); Blood Urea Nitrogen 30 mg/dL (7-17); Calcium 8.7 mg/dL (8.4-10.2); Chloride 97 mmol/L (98-107); Glucose 107 mg/dL (74-99); Non-African American GFR(CKD) >90 (>60 ml/min/1.73 sqM); Potassium 3.8 mmol/L (3.5-5.1); Sodium 144 mmol/L (137-145)
[2024-11-09 08:01] LABS: Anion Gap 6 mmol/L
[2024-11-09 08:04] LABS: Anisocytosis Slight; Basophils % (A) 0 %; Eosinophils % (A) 0 %; HCT 32.7 % (34.0-46.0); HGB 10.3 gm/dL (11.4-16.0); Hypochromasia Marked; Lymphocytes # (A) 1.6 k/uL (1.0-4.8); Lymphocytes % (A) 26 %; MCHC 31.4 g/dL (31.0-37.0); MCV 92.5 fL (80.0-100.0); Mean Platelet Volume 7.9; Monocytes # (A) 0.5 k/uL (0-1.0); Monocytes % (A) 8 %; Neutrophils # (A) 4.1 k/uL (1.3-7.7); Neutrophils % (A) 64 %; Platelet Count 220 k/uL (150-450); RBC 3.54 m/uL (3.80-5.40); RDW 17.4 % (11.5-15.5); WBC 6.3 k/uL (3.8-10.6)
[2024-11-09] MEDS: VALPROATE SODIUM 500 MG in SODIUM CHLORIDE 0.9% 100 ML IVPB SCH (08:12)
[2024-11-09 08:48] LABS: Carbon Dioxide 41 mmol/L (22-30)
[2024-11-09 11:18] LABS: Glucose,Whole Blood 124 mg/dL (70-110)
[2024-11-09] MEDS: FUROSEMIDE 40 MG TAB PO SCH (12:09)
[2024-11-09 12:22] LABS: ABG Base Excess 16.3 mmol/L; ABG Oxygen Saturation 96.6 % (94-97); ABG PH 7.39 (7.35-7.45); ABG PO2 87 mmHg (83-108); ABG TCO2 46 mmol/L (19-24); Allen Test Performed? Yes
[2024-11-09 12:31] LABS: ABG HCO3 44 mmol/L (21-25); ABG PCO2 73 mmHg (35-45)
--- NOTE | 2024-11-09 13:51 | P.PN ---
Subjective Progress Note Date: 11/09/24 This is a 64-year-old female patient is being seen in consultation as the patient presented to the hospital with altered mentation with some ongoing hypoxemia. The patient is known to have COPD with chronic hypoxic respiratory failure. She is morbidly obese with a BMI of 47.0. She is oxygen dependent. She is also known to have diabetes mellitus, hyperlipidemia and schizophrenia. She is a long-term resident at [facility]. At the time of her admission, the patient was placed on a nonrebreather facemask and subsequently the patient was transition to BiPAP. EKG showed a normal sinus rhythm. Chest x-ray showed smaller lung volumes and generalized hazy appearance atelectasis and component of pulm vessel congestion/edema. CT of the chest showed no evidence of any pulmonary embolism. There was scattered sclerotic foci throughout the osseous structures correlated with possible malignancy. Mild cardiomegaly. Mild pulm vessel congestion. There was motion artifact. CAT scan of the brain was negative. The white cell count was at 7.5 with a hemoglobin 10.8 and a D-dimer of 0.82. Sodium is at 140, potassium is 3.9, serum bicarb is at 40 with a BUN of 17 and a creatinine of 0.6. proBNP level was 915. Troponins were negative. Viral 4 Plex was negative. The blood gas was also obtained that showed a chronic hypercapnic respiratory failure with a pH of 7.42 with a pCO2 of 67 and pO2 of 75. UA showed +1 ketones, +1 protein, no infections. The patient is currently on DuoNeb nebulized treatments [id number]. She was started on IV Rocephin. She was started on Lasix 40 mg IV every 12 hours. She is also on Levemir insulin 10 units daily and sliding scale insulin coverage. She has been maintained on long-term anticoagulation with Xarelto.Doppler of the lower extremities were negative for DVT. D-dimer is at 0.82. The patient is seen today November 08, 2024 in follow-up on the selective care unit. She is currently sitting up in bed. Awake and alert in no acute di stress. A safety person is at the bedside. She is maintaining good O2 saturations in the mid 90s on 5 L high flow nasal cannula. She has been afebrile. Hemodynamically stable. White count 8.1. Hemoglobin 10.0. Platelets 244. Sodium 141. Potassium 3.5. Bicarb 42. BUN 21. Creatinine 0.74. Glucose 142. She remains on DuoNeb inhalations, Pulmicort inhalations. Antibiotics in the form of ceftriaxone. She remains on oral diuretics. Anticoagulated with Xarelto. The patient is seen today November 09, 2024 in follow-up on the selective care unit. She is currently resting in bed. Somewhat drowsy but arousable. Currently on BiPAP 14/5 and 55% FiO2. Arterial blood gases were drawn and show a PaO2 of 87, pCO2 of 73 and a pH of 7.39. White count 6.3. Hemoglobin 10.3. Platelets 220. Sodium 144. Potassium 3.8. Bicarb 41. BUN 30. Creatinine 0.66. Glucose 107. She remains on ceftriaxone. Continued on DuoNeb inhalations. Remains on oral diuretics. Anticoagulated with Xarelto. Objective - Vital Signs Vital signs: Vital Signs Temp 98.2 F 11/09/24 11:53 Pulse 74 11/09/24 12:37 Resp 20 11/09/24 11:53 BP 105/85 11/09/24 11:53 Pulse Ox 93 L 11/09/24 11:53 FiO2 55 11/09/24 12:34 Intake & Output 11/08/24 11/09/24 11/09/24 18:59 06:59 18:59 Output Total 800 Balance -800 Weight 126 kg 125.5 kg Output: Urine 800 Other: Voiding Method External Catheter External Catheter External Catheter - Exam GENERAL EXAM: Arousable, 64-year-old female, resting comfortably in bed, on BiPAP 14/5 and 55% FiO2. HEAD: Normocephalic. EYES: Normal reaction of pupils, equal size. NOSE: Clear with pink turbinates. THROAT: No erythema or exudates. NECK: No masses, no JVD. CHEST: No chest wall deformity. LUNGS: Equal air entry with bilateral scattered rhonchi. CVS: S1 and S2 normal with an audible murmur, regular rhythm. ABDOMEN: No hepatosplenomegaly, normal bowel sounds, no guarding or rigidity. SPINE: No scoliosis or deformity SKIN: No rashes CENTRAL NERVOUS SYSTEM: No focal deficits, tone is normal in all 4 extremities. EXTREMITIES: There is 1-2+ chronic peripheral edema. No clubbing, no cyanosis. Peripheral pulses are intact. - Labs CBC & Chem 7: 11/09/24 07:02 11/09/24 07:02 Labs: Abnormal Lab Results - Last 24 Hours (Table) 11/08/24 11/08/24 11/08/24 Range/Units 16:21 19:57 22:05 RBC (3.80-5.40) m/uL Hgb (11.4-16.0) gm/dL Hct (34.0-46.0) % RDW (11.5-15.5) % ABG pCO2 (35-45) mmHg ABG HCO3 (21-25) mmol/L ABG Total CO2 (19-24) mmol/L Hemoglobin (11.4-16.0) gm/dL Chloride (98-107) mmol/L Carbon Dioxide (22-30) mmol/L BUN (7-17) mg/dL Glucose (74-99) mg/dL POC Glucose (mg/dL) 252 H 132 H 112 H (70-110) mg/dL 11/09/24 11/09/24 11/09/24 Range/Units 05:39 07:02 07:02 RBC 3.54 L (3.80-5.40) m/uL Hgb 10.3 L (11.4-16.0) gm/dL Hct 32.7 L (34.0-46.0) % RDW 17.4 H (11.5-15.5) % ABG pCO2 (35-45) mmHg ABG HCO3 (21-25) mmol/L ABG Total CO2 (19-24) mmol/L Hemoglobin (11.4-16.0) gm/dL Chloride 97 L (98-107) mmol/L Carbon Dioxide 41 H* (22-30) mmol/L BUN 30 H (7-17) mg/dL Glucose 107 H (74-99) mg/dL POC Glucose (mg/dL) 149 H (70-110) mg/dL 11/09/24 11/09/24 Range/Units 11:15 12:19 RBC (3.80-5.40) m/uL Hgb (11.4-16.0) gm/dL Hct (34.0-46.0) % RDW (11.5-15.5) % ABG pCO2 73 H* (35-45) mmHg ABG HCO3 44 H* (21-25) mmol/L ABG Total CO2 46 H (19-24) mmol/L Hemoglobin 10.4 L (11.4-16.0) gm/dL Chloride (98-107) mmol/L Carbon Dioxide (22-30) mmol/L BUN (7-17) mg/dL Glucose (74-99) mg/dL POC Glucose (mg/dL) 124 H (70-110) mg/dL Microbiology - Last 24 Hours (Table) 11/07/24 11:30 Urine Culture - Final Urine,Voided Assessment and Plan Assessment: Altered mental status under investigation. Rule out metabolic factors and the blood gases showing chronic compensated respiratory acidosis. Patient was hypoxic at the time of admission could be attributed to a component of COPD and mild CHF with diastolic failure.CAT scan of the chest was reviewed and there is no evidence of any pulmonary embolism. There is motion artifact and there is COPD and mild pulm venous congestion. The patient was started on bronchodilators and Lasix. Started on empiric antibiotic coverage with IV Rocephin Acute on chronic hypoxic/hypercapnic respiratory failure, currently on BiPAP 14/5 and 55% FiO2 Acute exacerbation of chronic obstructive pulmonary disease. Suspect CHF with diastolic heart failure, proBNP level is mildly elevated History of chronic tobacco dependence. schizophrenia. Diabetes mellitus, type II. History of seizures. Chronic lower extremity edema. Repeated Dopplers have been negative for DVT and the patient has been maintained on Xarelto Hypertension. Hyperlipidemia. [facility] resident with an impaired based on performance and functional status Previous history of COVID-19 infection, 2021 in 2022, x 2 Plan: The patient was seen and evaluated Labs and medications reviewed Level of alertness still waxes and wanes Reviewed arterial blood gases Alternating on BiPAP with 6 L high flow nasal cannula Titrate down the FiO2 as tolerated Continue bronchodilators Xarelto for anticoagulation Continue diuretics civil service clerk at the bedside We will continue to follow I have personally seen and examined the patient, performed the documentation and the assessment and plan as written. Number of minutes spent on the visit: 10 Dictation was produced using [employer] software. Please excuse any grammatical, word or spelling errors.
--- NOTE | 2024-11-09 14:02 | P.PN ---
Subjective Progress Note Date: 11/09/24 This is a pleasant 64 years old male with past medical history of multiple medical problems as below. Patient currently on BiPAP and confused and drowsy and cannot provide information On admission patient was saturating 391% on 3 L. Later on to get worse saturating dropped to 84% on 4 L and she was tachypneic, currently she is placed on BiPAP. As per documents patient was transferred from [place] for altered mental status, she woke up but she was lethargic. #1 suspecting she has pneumonia and she is on 3 L oxygen Patient is afebrile vitals are stable Labs showing mild anemia with hemoglobin 10.7, other labs were unremarkable CBC, BMP, LFT, INR. Troponin x 2 are negative. Urine analysis is positive for nitrite. TSH is normal at 0.9 Influenza A and type B, RSV, SARS (coronavirus) are undetected Chest x-ray: No acute process EKG showing sinus rhythm at [address]-T changes D-dimer elevated at 0.8 CTA of the chest is negative for PE but showing scattered sclerotic foci suspicious for malignancy and metastatic disease associated with mild cardiomegaly and pulmonary vascular congestion CT of the brain is negative for acute process. In emergency room patient received antibiotics cefepime and Zithromax 11/09. Patient seen and examined. Arterial blood gases were drawn and show a PaO2 of 87, pCO2 of 73 and a pH of 7.39. Patient very lethargic, only arousable to painful stimuli, currently on BiPAP. REVIEW OF SYSTEMS: Review of system cannot be obtained as patient is lethargic. PHYSICAL EXAMINATION: GENERAL: The patient is lethargic HEENT: Pupils are round and equally reacting to light. EOMI. No scleral icterus. No conjunctival pallor. Normocephalic, atraumatic. No pharyngeal erythema. No thyromegaly. CARDIOVASCULAR: S1 and S2 present. No murmurs, rubs, or gallops. PULMONARY: Diminished breath sounds at the bases bilaterally, no wheezing or crackles. ABDOMEN: Soft, nontender, nondistended, normoactive bowel sounds. No palpable organomegaly. MUSCULOSKELETAL: No joint swelling or deformity. EXTREMITIES: No cyanosis, clubbing, or pedal edema. NEUROLOGICAL: Lethargic, arousable to painful stimuli SKIN: No rashes. Assessment and plan Acute metabolic encephalopathy Acute on chronic hypoxic/hypercapnic respiratory failure, Acute exacerbation of chronic obstructive pulmonary disease. Suspect CHF with diastolic heart failure, proBNP level is mildly elevated History of chronic tobacco dependence. schizophrenia. Diabetes mellitus, type II. History of seizures. Chronic lower extremity edema. Repeated Dopplers have been negative for DVT and the patient has been maintained on Xarelto Hypertension. Hyperlipidemia. [facility] resident with an impaired based on performance and functional status Previous history of COVID-19 infection, 2021 in 2022, x 2 Monitor vital signs Monitor CBC Monitor CMP Continue telemetry monitoring Continue oxygen supplementation Continue BiPAP Continue breathing treatments Continue aspirin, Lipitor Continue IV Rocephin Monitor blood sugar levels, continue sliding scale insulin Pulmonology following Labs and medication were reviewed.. Continue same treatment. Continue with symptomatic treatment. Resume home medication. Monitor labs and vitals. DVT and GI prophylaxis. Further recommendations as per clinical course of the patient Dictation was produced using [employer] dictation software. please excuse any grammatical, word or spelling errors. Objective - Vital Signs Vital signs: Vital Signs Temp 98.2 F 11/09/24 11:53 Pulse 74 11/09/24 12:37 Resp 20 11/09/24 11:53 BP 105/85 11/09/24 11:53 Pulse Ox 93 L 11/09/24 11:53 FiO2 55 11/09/24 12:34 Intake & Output 11/08/24 11/09/24 11/09/24 18:59 06:59 18:59 Output Total 800 Balance -800 Weight 126 kg 125.5 kg Output: Urine 800 Other: Voiding Method External Catheter External Catheter External Catheter - Labs CBC & Chem 7: 11/09/24 07:02 11/09/24 07:02 Labs: Abnormal Lab Results - Last 24 Hours (Table) 11/08/24 11/08/24 11/08/24 Range/Units 16:21 19:57 22:05 RBC (3.80-5.40) m/uL Hgb (11.4-16.0) gm/dL Hct (34.0-46.0) % RDW (11.5-15.5) % ABG pCO2 (35-45) mmHg ABG HCO3 (21-25) mmol/L ABG Total CO2 (19-24) mmol/L Hemoglobin (11.4-16.0) gm/dL Chloride (98-107) mmol/L Carbon Dioxide (22-30) mmol/L BUN (7-17) mg/dL Glucose (74-99) mg/dL POC Glucose (mg/dL) 252 H 132 H 112 H (70-110) mg/dL 11/09/24 11/09/24 11/09/24 Range/Units 05:39 07:02 07:02 RBC 3.54 L (3.80-5.40) m/uL Hgb 10.3 L (11.4-16.0) gm/dL Hct 32.7 L (34.0-46.0) % RDW 17.4 H (11.5-15.5) % ABG pCO2 (35-45) mmHg ABG HCO3 (21-25) mmol/L ABG Total CO2 (19-24) mmol/L Hemoglobin (11.4-16.0) gm/dL Chloride 97 L (98-107) mmol/L Carbon Dioxide 41 H* (22-30) mmol/L BUN 30 H (7-17) mg/dL Glucose 107 H (74-99) mg/dL POC Glucose (mg/dL) 149 H (70-110) mg/dL 11/09/24 11/09/24 Range/Units 11:15 12:19 RBC (3.80-5.40) m/uL Hgb (11.4-16.0) gm/dL Hct (34.0-46.0) % RDW (11.5-15.5) % ABG pCO2 73 H* (35-45) mmHg ABG HCO3 44 H* (21-25) mmol/L ABG Total CO2 46 H (19-24) mmol/L Hemoglobin 10.4 L (11.4-16.0) gm/dL Chloride (98-107) mmol/L Carbon Dioxide (22-30) mmol/L BUN (7-17) mg/dL Glucose (74-99) mg/dL POC Glucose (mg/dL) 124 H (70-110) mg/dL Microbiology - Last 24 Hours (Table) 11/07/24 11:30 Urine Culture - Final Urine,Voided
[2024-11-09 16:43] LABS: Glucose,Whole Blood 114 mg/dL (70-110)
[2024-11-09 20:17] LABS: Glucose,Whole Blood 121 mg/dL (70-110)
--- NOTE | 2024-11-09 21:06 | P.CONS ---
History of Present Illness - Reason for Consult Consult date: 11/09/24 UTI Requesting physician: Blaine Harper - Chief Complaint Mental status changes low O2 sats x 1 day on admission - History of Present Illness Patient is a 64-year-old female with a past medical history significant for diabetes mellitus hypertension hyperlipidemia COPD patient has been brought to the hospital 3 days ago for evaluation of mental status changes patient also noticed to have a low O2 sats and subsequently patient has been brought to the hospital on arrival to the ER patient was afebrile and no fever have been recorded during this hospital stay patient was not tachycardic or hypotensive she has been hypoxic and is currently on a BiPAP patient did have white count of 7.5 with no left shift creatinine 0.67 liver enzymes are normal urine has been negative influenza RSV COVID testing was negative patient did have chest x-ray which shows low lung volumes with generalized hazy appearance could represent atelectasis versus pulmonary edema did have a CT angiogram of the chest no PE did show scattered sclerotic foci throughout the bony structure correlate for malignancy also have a lower extremity swelling and a Doppler has been negative for DVT infectious disease was consulted today regarding concern for possible lower extremity cellulitis/UTI most information has been obtained from review the chart as the patient was unable to provide any history Review of Systems Positive points has been mentioned in HPI complete review could not be obtained because of his underlying mental status Past Medical History Past Medical History: COPD, Diabetes Mellitus, Hyperlipidemia, Hypertension Additional Past Medical History / Comment(s): NIDDM type II, FALLS, chronic bilateral lower extremity edema, constipation. Per Taty patient takes Xaralto for DVT prophylaxis, no HX DVT/PE, Patietn also wears 2-4LNC, and has body tremors History of Any Multi-Drug Resistant Organisms: None Reported Past Surgical History: Section Additional Past Surgical History / Comment(s): colonoscopy/benign polypectomy Past Anesthesia/Blood Transfusion Reactions: No Reported Reaction Past Psychological History: Schizophrenia Smoking Status: Former smoker Past Alcohol Use History: None Reported Additional Past Alcohol Use History / Comment(s): Pt started smoking in 1974 Past Drug Use History: None Reported - Past Family History family Family Medical History: Unable to Obtain Medications and Allergies Home Medications Medication Instructions Recorded Confirmed Type Ergocalciferol [Vitamin D2 50,000 unit PO SA@1700 09/02/19 11/06/24 History (DRISDOL)] Linagliptin [Tradjenta] 5 mg PO DAILY@0800 04/20/11/06/24 History Ipratropium-Albuterol Nebulize 3 ml INHALATION RT-QID@00,06,,04/12/21 11/06/24 History [Duoneb 0.5 mg-3 mg/3 ml Soln] Atorvastatin Calcium [Lipitor] 20 mg PO HS@2100 11/05/21 11/06/24 History Budesonide-Formot 160-4.5 Mcg 2 puff INHALATION RT-BID@,11/05/21 11/06/24 History [Symbicort 160-4.5 Mcg Inhaler] metFORMIN HCL [Glucophage] 1,000 mg PO BID@0800,1700 11/05/21 11/06/24 History Acetaminophen [Tylenol] 500 mg PO Q6H PRN #0 11/16/21 11/06/24 Rx Ascorbic Acid [Vitamin C] 500 mg PO BID@0800,1700 12/07/21 11/06/24 History Aspirin 81 mg PO DAILY@0800 12/07/21 11/06/24 History Famotidine [Pepcid] 20 mg PO DAILY@0800 12/07/21 11/06/24 History Rivaroxaban [Xarelto] 10 mg PO DAILY@0800 12/07/21 11/06/24 History Zinc Sulfate [Orazinc] 220 mg PO DAILY@1700 12/07/21 11/06/24 History Lactulose [Cephulac] 20 gm PO DAILY PRN ml 12/11/21 11/06/24 Rx Furosemide [Lasix] 20 mg PO BID@0800,1700 10/01/23 11/06/24 History Magnesium Hydroxide [Milk of 7,200 mg PO DAILY PRN 10/01/23 11/06/24 History Magnesia Concentrate] Na Phos,M-B/Na Phos,Di-Ba [Fleet 133 ml RECTAL DAILY PRN 10/01/23 11/06/24 History Adult] bisacodyL [Dulcolax] 10 mg RECTAL DAILY PRN 10/01/23 11/06/24 History cloZAPine [Clozaril] 200 mg PO HS@2100 10/01/23 11/06/24 History predniSONE 10 mg PO DAILY@0800 10/01/23 11/06/24 History Divalproex ER [Depakote ER] 250 mg PO HS@2100 09/09/24 11/06/24 History Divalproex ER [Depakote ER] 500 mg PO BID@0800,2100 09/09/24 11/06/24 History Insulin Degludec [Tresiba 10 units SQ DAILY@0800 09/09/24 11/06/24 History Flextouch U-100 Pen] Insulin Lispro [Admelog] 7 units SQ BID@0800,1700 09/09/24 11/06/24 History Insulin Lispro [Admelog] 10 units SQ DAILY@1200 09/09/24 11/06/24 History Insulin Lispro [Admelog] See Protocol SQ AC-TID@07,11,1630 09/09/24 11/06/24 History Loperamide [Imodium] 2 - 4 mg PO TID PRN MDD 8mg 09/09/24 11/06/24 History Multivitamins, Thera [Multivitamin 1 each PO DAILY@1200 tab 09/18/24 11/06/24 Rx (formulary)] Nystatin 100,000 Unit/gm Powd 1 applic TOPICAL TID PRN each 09/18/24 11/06/24 Rx [Mycostatin Powder] Folic Acid 1 mg PO DAILY@0800 11/06/24 11/06/24 History Thiamine [Vitamin B-1] 100 mg PO DAILY@0800 11/06/24 11/06/24 History Allergies Allergy/AdvReac Type Severity Reaction Status Date / Time honey Allergy Unknown Verified 11/06/24 16:48 latex Allergy Unknown Verified 11/06/24 16:48 risperidone [From Risperdal] Allergy Unknown Verified 11/06/24 16:48 whey Allergy Unknown Verified 11/06/24 16:48 Physical Exam Vitals: Vital Signs Temp Pulse Pulse Resp BP Pulse Ox FiO2 11/09/24 14:00 68 20 11/09/24 12:37 74 11/09/24 12:34 55 11/09/24 11:53 98.2 F 68 20 105/85 93 L 55 11/09/24 09:27 74 11/09/24 09:17 74 11/09/24 09:14 55 11/09/24 08:17 97.8 F 68 22 103/60 93 L 55 11/09/24 03:17 98.0 F 68 22 102/66 96 55 11/09/24 03:16 55 11/09/24 02:00 72 20 11/08/24 23:29 55 11/08/24 23:16 97.9 F 72 20 102/69 96 55 11/08/24 20:06 98.0 F 81 18 102/54 97 11/08/24 20:03 78 11/08/24 19:52 74 55 11/08/24 17:05 88 11/08/24 16:55 92 11/08/24 16:20 98.2 F 84 18 124/75 95 Intake and Output 11/09/24 11/09/24 11/09/24 06:59 14:59 22:59 Output Total 800 Balance -800 Output: Urine 800 Other: Voiding Method External Catheter External Catheter Weight 125.5 kg GENERAL DESCRIPTION: Middle-aged female lying in bed, no distress. No tachypnea or accessory muscle of respiration use. HEENT: Shows Pallor , no scleral icterus. Oral mucous membrane is dry. NECK: Trachea central, no thyromegaly. LUNGS: Unlabored breathing. Decreased breath sound at the base HEART: S1, S2, regular rate and rhythm. No loud murmur ABDOMEN: Soft, no tenderness , guarding or rigidity, no organomegaly EXTREMITIES: Diffuse swelling of bilateral lower extremity minimal edema no open wound or any drainage SKIN: No rash, no masses palpable. NEUROLOGICAL: The patient is lethargic on the BiPAP Results CBC & Chem 7: 11/11/24 07:38 11/11/24 07:38 Labs: Abnormal Lab Results - Last 24 Hours (Table) 11/08/24 11/08/24 11/08/24 Range/Units 16:21 19:57 22:05 RBC (3.80-5.40) m/uL Hgb (11.4-16.0) gm/dL Hct (34.0-46.0) % RDW (11.5-15.5) % ABG pCO2 (35-45) mmHg ABG HCO3 (21-25) mmol/L ABG Total CO2 (19-24) mmol/L Hemoglobin (11.4-16.0) gm/dL Chloride (98-107) mmol/L Carbon Dioxide (22-30) mmol/L BUN (7-17) mg/dL Glucose (74-99) mg/dL POC Glucose (mg/dL) 252 H 132 H 112 H (70-110) mg/dL 11/09/24 11/09/24 11/09/24 Range/Units 05:39 07:02 07:02 RBC 3.54 L (3.80-5.40) m/uL Hgb 10.3 L (11.4-16.0) gm/dL Hct 32.7 L (34.0-46.0) % RDW 17.4 H (11.5-15.5) % ABG pCO2 (35-45) mmHg ABG HCO3 (21-25) mmol/L ABG Total CO2 (19-24) mmol/L Hemoglobin (11.4-16.0) gm/dL Chloride 97 L (98-107) mmol/L Carbon Dioxide 41 H* (22-30) mmol/L BUN 30 H (7-17) mg/dL Glucose 107 H (74-99) mg/dL POC Glucose (mg/dL) 149 H (70-110) mg/dL 11/09/24 11/09/24 Range/Units 11:15 12:19 RBC (3.80-5.40) m/uL Hgb (11.4-16.0) gm/dL Hct (34.0-46.0) % RDW (11.5-15.5) % ABG pCO2 73 H* (35-45) mmHg ABG HCO3 44 H* (21-25) mmol/L ABG Total CO2 46 H (19-24) mmol/L Hemoglobin 10.4 L (11.4-16.0) gm/dL Chloride (98-107) mmol/L Carbon Dioxide (22-30) mmol/L BUN (7-17) mg/dL Glucose (74-99) mg/dL POC Glucose (mg/dL) 124 H (70-110) mg/dL Microbiology - Last 24 Hours (Table) 11/07/24 11:30 Urine Culture - Final Urine,Voided Assessment and Plan (1) Swelling of both lower extremities Current Visit: Yes Status: Acute Code(s): M79.89 - OTHER SPECIFIED SOFT TISSUE DISORDERS SNOMED Code(s): 236274292 (2) Bilateral lower leg cellulitis Current Visit: Yes Status: Acute Code(s): L03.116 - CELLULITIS OF LEFT LOWER LIMB; L03.115 - CELLULITIS OF RIGHT LOWER LIMB SNOMED Code(s): 102807342 Plan: 1patient with presentation to hospital with mental status changes hypoxemia increasing shortness of breath in this patient who do have features of fluid overload with evidence of diffuse swelling to lower extremity that was negative for DVT mild erythema could be related to the venous stasis, cellulitis less likely but not excluded patient also have a negative UA hard to get any history from this patient regarding urinary symptoms clinical suspicious low for UTI 2we will consider applying Felix wrap to get some of the swelling lower extremity down and that should help with the swelling as well as the redness 3May continue Rocephin for now We will follow on clinical condition and cultures to further adjust medication if needed Thank you for this consultation we will follow the patient along with you Dictation was produced using [employer] dictation software. please excuse any grammatical, word or spelling errors. Time with Patient: Greater than 30
[2024-11-10 00:03] LABS: Glucose,Whole Blood 120 mg/dL (70-110)
[2024-11-10 05:46] LABS: Glucose,Whole Blood 115 mg/dL (70-110)
[2024-11-10 11:47] LABS: Glucose,Whole Blood 120 mg/dL (70-110)
--- NOTE | 2024-11-10 13:15 | P.PN ---
Subjective Progress Note Date: 11/10/24 This is a pleasant 64 years old male with past medical history of multiple medical problems as below. Patient currently on BiPAP and confused and drowsy and cannot provide information On admission patient was saturating 391% on 3 L. Later on to get worse saturating dropped to 84% on 4 L and she was tachypneic, currently she is placed on BiPAP. As per documents patient was transferred from [place] for altered mental status, she woke up but she was lethargic. #1 suspecting she has pneumonia and she is on 3 L oxygen Patient is afebrile vitals are stable Labs showing mild anemia with hemoglobin 10.7, other labs were unremarkable CBC, BMP, LFT, INR. Troponin x 2 are negative. Urine analysis is positive for nitrite. TSH is normal at 0.9 Influenza A and type B, RSV, SARS (coronavirus) are undetected Chest x-ray: No acute process EKG showing sinus rhythm at [address]-T changes D-dimer elevated at 0.8 CTA of the chest is negative for PE but showing scattered sclerotic foci suspicious for malignancy and metastatic disease associated with mild cardiomegaly and pulmonary vascular congestion CT of the brain is negative for acute process. In emergency room patient received antibiotics cefepime and Zithromax 11/09. Patient seen and examined. Arterial blood gases were drawn and show a PaO2 of 87, pCO2 of 73 and a pH of 7.39. Patient very lethargic, only arousable to painful stimuli, currently on BiPAP. 11/10. Patient seen and examined. Patient is more alert compared to yesterday. Was able to maintain a conversation REVIEW OF SYSTEMS: Denies chest pain. Denies shortness of breath. PHYSICAL EXAMINATION: GENERAL: The patient is alert HEENT: Pupils are round and equally reacting to light. EOMI. No scleral icterus. No conjunctival pallor. Normocephalic, atraumatic. No pharyngeal erythema. No thyromegaly. CARDIOVASCULAR: S1 and S2 present. No murmurs, rubs, or gallops. PULMONARY: Diminished breath sounds at the bases bilaterally, no wheezing or crackles. ABDOMEN: Soft, nontender, nondistended, normoactive bowel sounds. No palpable organomegaly. MUSCULOSKELETAL: No joint swelling or deformity. EXTREMITIES: No cyanosis, clubbing, or pedal edema. NEUROLOGICAL: Moving all extremities SKIN: No rashes. Assessment and plan Acute metabolic encephalopathy Acute on chronic hypoxic/hypercapnic respiratory failure, Acute exacerbation of chronic obstructive pulmonary disease. Suspect CHF with diastolic heart failure, proBNP level is mildly elevated History of chronic tobacco dependence. schizophrenia. Diabetes mellitus, type II. History of seizures. Chronic lower extremity edema. Repeated Dopplers have been negative for DVT and the patient has been maintained on Xarelto Hypertension. Hyperlipidemia. snf resident with an impaired based on performance and functional status Previous history of COVID-19 infection, 2021 in 2022, x 2 Monitor vital signs Monitor CBC Monitor CMP Continue telemetry monitoring Continue oxygen supplementation Continue BiPAP Continue breathing treatments Continue aspirin, Lipitor Continue IV Rocephin Monitor blood sugar levels, continue sliding scale insulin Pulmonology following Labs and medication were reviewed.. Continue same treatment. Continue with symptomatic treatment. Resume home medication. Monitor labs and vitals. DVT and GI prophylaxis. Further recommendations as per clinical course of the patient Dictation was produced using [employer] dictation software. please excuse any grammatical, word or spelling errors. Objective - Vital Signs Vital signs: Vital Signs Temp 97.5 F L 11/10/24 04:00 Pulse 72 11/10/24 11:41 Resp 19 11/10/24 04:00 BP 117/77 11/10/24 04:00 Pulse Ox 97 11/10/24 08:19 FiO2 40 11/10/24 08:07 Intake & Output 11/09/24 11/10/24 11/10/24 18:59 06:59 18:59 Intake Total 10 118 Output Total 900 600 Balance -890 -482 Weight 125.5 kg Intake: IV 10 Invasive Line 1 10 Oral 118 Output: Urine 900 600 Other: Voiding Method External Catheter External Catheter # Voids 1 # Bowel Movements 1 - Labs CBC & Chem 7: 11/09/24 07:02 11/09/24 07:02 Labs: Abnormal Lab Results - Last 24 Hours (Table) 11/09/24 11/09/24 11/10/24 Range/Units 16:41 20:16 00:00 POC Glucose (mg/dL) 114 H 121 H 120 H (70-110) mg/dL 11/10/24 11/10/24 Range/Units 05:44 11:46 POC Glucose (mg/dL) 115 H 120 H (70-110) mg/dL Microbiology - Last 24 Hours (Table) 11/07/24 11:30 Urine Culture - Final Urine,Voided
--- NOTE | 2024-11-10 15:39 | P.PN ---
Subjective Progress Note Date: 11/10/24 This is a 64-year-old female patient is being seen in consultation as the patient presented to the hospital with altered mentation with some ongoing hypoxemia. The patient is known to have COPD with chronic hypoxic respiratory failure. She is morbidly obese with a BMI of 47.0. She is oxygen dependent. She is also known to have diabetes mellitus, hyperlipidemia and schizophrenia. She is a long-term resident at [facility]. At the time of her admission, the patient was placed on a nonrebreather facemask and subsequently the patient was transition to BiPAP. EKG showed a normal sinus rhythm. Chest x-ray showed smaller lung volumes and generalized hazy appearance atelectasis and component of pulm vessel congestion/edema. CT of the chest showed no evidence of any pulmonary embolism. There was scattered sclerotic foci throughout the osseous structures correlated with possible malignancy. Mild cardiomegaly. Mild pulm vessel congestion. There was motion artifact. CAT scan of the brain was negative. The white cell count was at 7.5 with a hemoglobin 10.8 and a D-dimer of 0.82. Sodium is at 140, potassium is 3.9, serum bicarb is at 40 with a BUN of 17 and a creatinine of 0.6. proBNP level was 915. Troponins were negative. Viral 4 Plex was negative. The blood gas was also obtained that showed a chronic hypercapnic respiratory failure with a pH of 7.42 with a pCO2 of 67 and pO2 of 75. UA showed +1 ketones, +1 protein, no infections. The patient is currently on DuoNeb nebulized treatments [id number]. She was started on IV Rocephin. She was started on Lasix 40 mg IV every 12 hours. She is also on Levemir insulin 10 units daily and sliding scale insulin coverage. She has been maintained on long-term anticoagulation with Xarelto.Doppler of the lower extremities were negative for DVT. D-dimer is at 0.82. The patient is seen today November 08, 2024 in follow-up on the selective care unit. She is currently sitting up in bed. Awake and alert in no acute di stress. A vehicle safety inspector is at the bedside. She is maintaining good O2 saturations in the mid 90s on 5 L high flow nasal cannula. She has been afebrile. Hemodynamically stable. White count 8.1. Hemoglobin 10.0. Platelets 244. Sodium 141. Potassium 3.5. Bicarb 42. BUN 21. Creatinine 0.74. Glucose 142. She remains on DuoNeb inhalations, Pulmicort inhalations. Antibiotics in the form of ceftriaxone. She remains on oral diuretics. Anticoagulated with Xarelto. The patient is seen today November 09, 2024 in follow-up on the selective care unit. She is currently resting in bed. Somewhat drowsy but arousable. Currently on BiPAP 14/5 and 55% FiO2. Arterial blood gases were drawn and show a PaO2 of 87, pCO2 of 73 and a pH of 7.39. White count 6.3. Hemoglobin 10.3. Platelets 220. Sodium 144. Potassium 3.8. Bicarb 41. BUN 30. Creatinine 0.66. Glucose 107. She remains on ceftriaxone. Continued on DuoNeb inhalations. Remains on oral diuretics. Anticoagulated with Xarelto. The patient is seen today November 10, 2024 in follow-up on the selective care unit. She is more awake and alert today compared to yesterday. No worsening shortness of breath, cough or congestion. She is maintaining good O2 saturations in the 90s on 6 L/min per nasal cannula. Alternating with BiPAP 15/5 and 40% FiO2. She is continued on DuoNeb inhalations, Pulmicort inhalations. Remains on oral diuretics. Remains on ceftriaxone. Anticoagulated with Xarelto. Urine culture revealed no growth. Glucose 120. Objective - Vital Signs Vital signs: Vital Signs Temp 98.7 F 11/10/24 12:00 Pulse 90 11/10/24 12:00 Resp 19 11/10/24 12:00 BP 115/74 11/10/24 09:00 Pulse Ox 99 11/10/24 12:00 FiO2 50 11/10/24 12:00 Intake & Output 11/09/24 11/10/24 11/10/24 18:59 06:59 18:59 Intake Total 10 118 Output Total 900 600 Balance -890 -482 Weight 125.5 kg Intake: IV 10 Invasive Line 1 10 Oral 118 Output: Urine 900 600 Other: Voiding Method External Catheter External Catheter External Catheter # Voids 1 # Bowel Movements 1 - Exam GENERAL EXAM: Awake, alert, 64-year-old female, resting in bed, on nasal cannula alternating with BiPAP 15/5 and 40% FiO2. HEAD: Normocephalic. EYES: Normal reaction of pupils, equal size. NOSE: Clear with pink turbinates. THROAT: No erythema or exudates. NECK: No masses, no JVD. CHEST: No chest wall deformity. LUNGS: Equal air entry with bilateral scattered rhonchi. CVS: S1 and S2 normal with an audible murmur, regular rhythm. ABDOMEN: No hepatosplenomegaly, normal bowel sounds, no guarding or rigidity. SPINE: No scoliosis or deformity SKIN: No rashes CENTRAL NERVOUS SYSTEM: No focal deficits, tone is normal in all 4 extremities. EXTREMITIES: There is 1-2+ chronic peripheral edema. No clubbing, no cyanosis. Peripheral pulses are intact. - Labs CBC & Chem 7: 11/09/24 07:02 11/09/24 07:02 Labs: Abnormal Lab Results - Last 24 Hours (Table) 11/09/24 11/09/24 11/10/24 Range/Units 16:41 20:16 00:00 POC Glucose (mg/dL) 114 H 121 H 120 H (70-110) mg/dL 11/10/24 11/10/24 Range/Units 05:44 11:46 POC Glucose (mg/dL) 115 H 120 H (70-110) mg/dL Assessment and Plan Assessment: Altered mental status under investigation. Rule out metabolic factors and the blood gases showing chronic compensated respiratory acidosis. Patient was hypoxic at the time of admission could be attributed to a component of COPD and mild CHF with diastolic failure.CAT scan of the chest was reviewed and there is no evidence of any pulmonary embolism. There is motion artifact and there is COPD and mild pulm venous congestion. The patient was started on bronchodilators and Lasix. Started on empiric antibiotic coverage with IV Rocephin. Urine culture revealed no growth. The patient is awake and alert today November 10, 2024 Acute on chronic hypoxic/hypercapnic respiratory failure, currently on BiPAP 15/5 and 40% FiO2 Acute exacerbation of chronic obstructive pulmonary disease. Suspect CHF with diastolic heart failure, proBNP level is mildly elevated History of chronic tobacco dependence. schizophrenia. Diabetes mellitus, type II. History of seizures. Chronic lower extremity edema. Repeated Dopplers have been negative for DVT and the patient has been maintained on Xarelto Hypertension. Hyperlipidemia. half-way resident with an impaired based on performance and functional status Previous history of COVID-19 infection, 2021 in 2022, x 2 Plan: The patient was seen and evaluated Labs and medications reviewed Level of alertness improved today Alternating on BiPAP with 6 L high flow nasal cannula Titrate down the FiO2 as tolerated Continue bronchodilators Xarelto for anticoagulation Continue diuretics Plan is to return to [facility] at discharge I have personally seen and examined the patient, performed the documentation and the assessment and plan as written. Number of minutes spent on the visit: 10 Dictation was produced using [employer] dictation software. Please excuse any grammatical, word or spelling errors.
[2024-11-10 16:52] LABS: Glucose,Whole Blood 161 mg/dL (70-110)
[2024-11-10] MEDS: HALOPERIDOL LACTATE 5 MG/ML 1 ML VIAL IVP STA (20:23)
[2024-11-10 20:43] LABS: ABG Base Excess 14.5 mmol/L; ABG PCO2 55 mmHg (35-45); ABG PH 7.47 (7.35-7.45); ABG PO2 94 mmHg (83-108); ABG TCO2 42 mmol/L (19-24); Allen Test Performed? Yes
[2024-11-10 20:47] LABS: ABG HCO3 40 mmol/L (21-25)
[2024-11-10 23:26] LABS: Glucose,Whole Blood 148 mg/dL (70-110)
[2024-11-11 06:05] LABS: Glucose,Whole Blood 149 mg/dL (70-110)
[2024-11-11 08:09] LABS: Anisocytosis Slight; Basophils % (A) 0 %; Eosinophils % (A) 0 %; HCT 36.5 % (34.0-46.0); HGB 11.1 gm/dL (11.4-16.0); Hypochromasia Marked; Lymphocytes # (A) 1.5 k/uL (1.0-4.8); Lymphocytes % (A) 22 %; MCHC 30.5 g/dL (31.0-37.0); MCV 91.7 fL (80.0-100.0); Monocytes # (A) 0.6 k/uL (0-1.0); Monocytes % (A) 8 %; Neutrophils # (A) 4.9 k/uL (1.3-7.7); Neutrophils % (A) 69 %; Platelet Count 199 k/uL (150-450); RBC 3.98 m/uL (3.80-5.40); RDW 16.6 % (11.5-15.5); WBC 7.1 k/uL (3.8-10.6)
[2024-11-11 08:19] LABS: ALT 12 U/L (4-34); AST 19 U/L (14-36); African American GFR (CKD) >90 (>60 ml/min/1.73 sqM); Albumin 3.5 g/dL (3.5-5.0); Alkaline Phosphatase 200 U/L (38-126); Anion Gap 5 mmol/L; Blood Urea Nitrogen 16 mg/dL (7-17); Calcium 9.2 mg/dL (8.4-10.2); Carbon Dioxide 39 mmol/L (22-30); Chloride 97 mmol/L (98-107); Glucose 120 mg/dL (74-99); Non-African American GFR(CKD) >90 (>60 ml/min/1.73 sqM); Potassium 3.5 mmol/L (3.5-5.1); Sodium 141 mmol/L (137-145); Total Bilirubin 0.6 mg/dL (0.2-1.3); Total Protein 5.8 g/dL (6.3-8.2)
[2024-11-11 12:02] LABS: Glucose,Whole Blood 166 mg/dL (70-110)
--- NOTE | 2024-11-11 13:13 | P.PN ---
Subjective Progress Note Date: 11/11/24 This is a 64-year-old female patient is being seen in consultation as the patient presented to the hospital with altered mentation with some ongoing hypoxemia. The patient is known to have COPD with chronic hypoxic respiratory failure. She is morbidly obese with a BMI of 47.0. She is oxygen dependent. She is also known to have diabetes mellitus, hyperlipidemia and schizophrenia. She is a long-term resident at [facility]. At the time of her admission, the patient was placed on a nonrebreather facemask and subsequently the patient was transition to BiPAP. EKG showed a normal sinus rhythm. Chest x-ray showed smaller lung volumes and generalized hazy appearance atelectasis and component of pulm vessel congestion/edema. CT of the chest showed no evidence of any pulmonary embolism. There was scattered sclerotic foci throughout the osseous structures correlated with possible malignancy. Mild cardiomegaly. Mild pulm vessel congestion. There was motion artifact. CAT scan of the brain was negative. The white cell count was at 7.5 with a hemoglobin 10.8 and a D-dimer of 0.82. Sodium is at 140, potassium is 3.9, serum bicarb is at 40 with a BUN of 17 and a creatinine of 0.6. proBNP level was 915. Troponins were negative. Viral 4 Plex was negative. The blood gas was also obtained that showed a chronic hypercapnic respiratory failure with a pH of 7.42 with a pCO2 of 67 and pO2 of 75. UA showed +1 ketones, +1 protein, no infections. The patient is currently on DuoNeb nebulized treatments [id number]. She was started on IV Rocephin. She was started on Lasix 40 mg IV every 12 hours. She is also on Levemir insulin 10 units daily and sliding scale insulin coverage. She has been maintained on long-term anticoagulation with Xarelto.Doppler of the lower extremities were negative for DVT. D-dimer is at 0.82. The patient is seen today November 08, 2024 in follow-up on the selective care unit. She is currently sitting up in bed. Awake and alert in no acute di stress. A vice president safety is at the bedside. She is maintaining good O2 saturations in the mid 90s on 5 L high flow nasal cannula. She has been afebrile. Hemodynamically stable. White count 8.1. Hemoglobin 10.0. Platelets 244. Sodium 141. Potassium 3.5. Bicarb 42. BUN 21. Creatinine 0.74. Glucose 142. She remains on DuoNeb inhalations, Pulmicort inhalations. Antibiotics in the form of ceftriaxone. She remains on oral diuretics. Anticoagulated with Xarelto. The patient is seen today November 09, 2024 in follow-up on the selective care unit. She is currently resting in bed. Somewhat drowsy but arousable. Currently on BiPAP 14/5 and 55% FiO2. Arterial blood gases were drawn and show a PaO2 of 87, pCO2 of 73 and a pH of 7.39. White count 6.3. Hemoglobin 10.3. Platelets 220. Sodium 144. Potassium 3.8. Bicarb 41. BUN 30. Creatinine 0.66. Glucose 107. She remains on ceftriaxone. Continued on DuoNeb inhalations. Remains on oral diuretics. Anticoagulated with Xarelto. The patient is seen today November 10, 2024 in follow-up on the selective care unit. She is more awake and alert today compared to yesterday. No worsening shortness of breath, cough or congestion. She is maintaining good O2 saturations in the 90s on 6 L/min per nasal cannula. Alternating with BiPAP 15/5 and 40% FiO2. She is continued on DuoNeb inhalations, Pulmicort inhalations. Remains on oral diuretics. Remains on ceftriaxone. Anticoagulated with Xarelto. Urine culture revealed no growth. Glucose 120. The patient is seen today November 11, 2024 in follow-up on the selective care unit. She is resting in bed. Awake and alert in no acute distress. Denies any worsening shortness of breath, cough or congestion. She is currently on 6 L high flow nasal cannula. She is alternating with BiPAP 14/5 and 40% FiO2. She remains on DuoNeb and elations, Pulmicort inhalations. Xarelto for anticoagulation. Remains on oral diuretics. Urine culture revealed no growth. Currently on ceftriaxone. White count 7.1. Hemoglobin 11.1. Platelets 199. Sodium 141. Potassium 3.5. Bicarb 39. BUN 16. Creatinine 0.57. Glucose 120. Objective - Vital Signs Vital signs: Vital Signs Temp 98.5 F 11/11/24 11:05 Pulse 88 11/11/24 12:02 Resp 19 11/11/24 12:02 BP 142/84 11/11/24 11:05 Pulse Ox 94 L 11/11/24 12:02 FiO2 40 11/11/24 11:05 Intake & Output 11/10/24 11/11/24 11/11/24 18:59 06:59 18:59 Intake Total 236 450 Output Total 1150 450 Balance -914 -450 450 Weight 126.5 kg Intake: IV 10 Invasive Line 2 10 Oral 236 440 Output: Urine 1150 450 Other: Voiding Method External Catheter External Catheter External Catheter # Voids 1 1 - Exam GENERAL EXAM: Awake, 64-year-old female, resting in bed, on 6 L nasal cannula alternating with BiPAP 14/5 and 40% FiO2. HEAD: Normocephalic. EYES: Normal reaction of pupils, equal size. NOSE: Clear with pink turbinates. THROAT: No erythema or exudates. NECK: No masses, no JVD. CHEST: No chest wall deformity. LUNGS: Equal air entry with bilateral scattered rhonchi. CVS: S1 and S2 normal with an audible murmur, regular rhythm. ABDOMEN: No hepatosplenomegaly, normal bowel sounds, no guarding or rigidity. SPINE: No scoliosis or deformity SKIN: No rashes CENTRAL NERVOUS SYSTEM: No focal deficits, tone is normal in all 4 extremities. EXTREMITIES: There is 1-2+ chronic peripheral edema. No clubbing, no cyanosis. Peripheral pulses are intact. - Labs CBC & Chem 7: 11/11/24 07:38 11/11/24 07:38 Labs: Abnormal Lab Results - Last 24 Hours (Table) 11/10/24 11/10/24 11/10/24 Range/Units 16:51 20:39 23:25 Hgb (11.4-16.0) gm/dL MCHC (31.0-37.0) g/dL RDW (11.5-15.5) % ABG pH 7.47 H (7.35-7.45) ABG pCO2 55 H (35-45) mmHg ABG HCO3 40 H* (21-25) mmol/L ABG Total CO2 42 H (19-24) mmol/L ABG O2 Saturation 98.0 H (94-97) % Hemoglobin 10.2 L (11.4-16.0) gm/dL Chloride (98-107) mmol/L Carbon Dioxide (22-30) mmol/L Glucose (74-99) mg/dL POC Glucose (mg/dL) 161 H 148 H (70-110) mg/dL Alkaline Phosphatase (38-126) U/L Total Protein (6.3-8.2) g/dL 11/11/24 11/11/24 11/11/24 Range/Units 06:00 07:38 07:38 Hgb 11.1 L (11.4-16.0) gm/dL MCHC 30.5 L (31.0-37.0) g/dL RDW 16.6 H (11.5-15.5) % ABG pH (7.35-7.45) ABG pCO2 (35-45) mmHg ABG HCO3 (21-25) mmol/L ABG Total CO2 (19-24) mmol/L ABG O2 Saturation (94-97) % Hemoglobin (11.4-16.0) gm/dL Chloride 97 L (98-107) mmol/L Carbon Dioxide 39 H (22-30) mmol/L Glucose 120 H (74-99) mg/dL POC Glucose (mg/dL) 149 H (70-110) mg/dL Alkaline Phosphatase 200 H (38-126) U/L Total Protein 5.8 L (6.3-8.2) g/dL 11/11/24 Range/Units 12:00 Hgb (11.4-16.0) gm/dL MCHC (31.0-37.0) g/dL RDW (11.5-15.5) % ABG pH (7.35-7.45) ABG pCO2 (35-45) mmHg ABG HCO3 (21-25) mmol/L ABG Total CO2 (19-24) mmol/L ABG O2 Saturation (94-97) % Hemoglobin (11.4-16.0) gm/dL Chloride (98-107) mmol/L Carbon Dioxide (22-30) mmol/L Glucose (74-99) mg/dL POC Glucose (mg/dL) 166 H (70-110) mg/dL Alkaline Phosphatase (38-126) U/L Total Protein (6.3-8.2) g/dL Assessment and Plan Assessment: Altered mental status under investigation. Rule out metabolic factors and the blood gases showing chronic compensated respiratory acidosis. Patient was hypoxic at the time of admission could be attributed to a component of COPD and mild CHF with diastolic failure.CAT scan of the chest was reviewed and there is no evidence of any pulmonary embolism. There is motion artifact and there is COPD and mild pulm venous congestion. The patient was started on bronchodilators and Lasix. Started on empiric antibiotic coverage with IV Rocephin. Urine culture revealed no growth. The patient is awake and alert today November 11, 2024 Acute on chronic hypoxic/hypercapnic respiratory failure, currently on BiPAP 14/5 and 40% FiO2 Acute exacerbation of chronic obstructive pulmonary disease. Suspect CHF with diastolic heart failure, proBNP level is mildly elevated History of chronic tobacco dependence. schizophrenia. Diabetes mellitus, type II. History of seizures. Chronic lower extremity edema. Repeated Dopplers have been negative for DVT and the patient has been maintained on Xarelto Hypertension. Hyperlipidemia. senior care resident with an impaired based on performance and functional status Previous history of COVID-19 infection, 2021 in 2022, x 2 Plan: The patient was seen and evaluated Labs and medications reviewed Remains awake and alert Alternating on BiPAP with 6 L high flow nasal cannula Titrate down the FiO2 as tolerated Plan is to return to [facility] at discharge I have personally seen and examined the patient, performed the documentation and the assessment and plan as written. Number of minutes spent on the visit: 10 Dictation was produced using [employer] dictation software. Please excuse any grammatical, word or spelling errors.
--- NOTE | 2024-11-11 13:22 | P.PN ---
Subjective Progress Note Date: 11/11/24 This is a pleasant 64 years old male with past medical history of multiple medical problems as below. Patient currently on BiPAP and confused and drowsy and cannot provide information On admission patient was saturating 391% on 3 L. Later on to get worse saturating dropped to 84% on 4 L and she was tachypneic, currently she is placed on BiPAP. As per documents patient was transferred from [place] for altered mental status, she woke up but she was lethargic. #1 suspecting she has pneumonia and she is on 3 L oxygen Patient is afebrile vitals are stable Labs showing mild anemia with hemoglobin 10.7, other labs were unremarkable CBC, BMP, LFT, INR. Troponin x 2 are negative. Urine analysis is positive for nitrite. TSH is normal at 0.9 Influenza A and type B, RSV, SARS (coronavirus) are undetected Chest x-ray: No acute process EKG showing sinus rhythm at [address]-T changes D-dimer elevated at 0.8 CTA of the chest is negative for PE but showing scattered sclerotic foci suspicious for malignancy and metastatic disease associated with mild cardiomegaly and pulmonary vascular congestion CT of the brain is negative for acute process. In emergency room patient received antibiotics cefepime and Zithromax 11/09. Patient seen and examined. Arterial blood gases were drawn and show a PaO2 of 87, pCO2 of 73 and a pH of 7.39. Patient very lethargic, only arousable to painful stimuli, currently on BiPAP. 11/10. Patient seen and examined. Patient is more alert compared to yesterday. Was able to maintain a conversation 11/11. Patient seen and examined. Continues to alternate between BiPAP and nasal cannula oxygen. Blood work done this morning showed WBC 9.1, hemoglobin 9.1, sodium 141, potassium 3.5, BUN is 16, creatinine 0.57 REVIEW OF SYSTEMS: Denies chest pain. Denies shortness of breath. PHYSICAL EXAMINATION: GENERAL: The patient is alert HEENT: Pupils are round and equally reacting to light. EOMI. No scleral icterus. No conjunctival pallor. Normocephalic, atraumatic. No pharyngeal erythema. No thyromegaly. CARDIOVASCULAR: S1 and S2 present. No murmurs, rubs, or gallops. PULMONARY: Diminished breath sounds at the bases bilaterally, no wheezing or crackles. ABDOMEN: Soft, nontender, nondistended, normoactive bowel sounds. No palpable organomegaly. MUSCULOSKELETAL: No joint swelling or deformity. EXTREMITIES: No cyanosis, clubbing, or pedal edema. NEUROLOGICAL: Moving all extremities SKIN: No rashes. Assessment and plan Acute metabolic encephalopathy Acute on chronic hypoxic/hypercapnic respiratory failure, Acute exacerbation of chronic obstructive pulmonary disease. Suspect CHF with diastolic heart failure, proBNP level is mildly elevated History of chronic tobacco dependence. schizophrenia. Diabetes mellitus, type II. History of seizures. Chronic lower extremity edema. Repeated Dopplers have been negative for DVT and the patient has been maintained on Xarelto Hypertension. Hyperlipidemia. senior living resident with an impaired based on performance and functional status Previous history of COVID-19 infection, 2021 in 2022, x 2 Monitor vital signs Monitor CBC Monitor CMP Continue telemetry monitoring Continue oxygen supplementation Continue BiPAP Continue breathing treatments Continue aspirin, Lipitor Continue IV Rocephin Monitor blood sugar levels, continue sliding scale insulin Pulmonology following Labs and medication were reviewed.. Continue same treatment. Continue with symptomatic treatment. Resume home medication. Monitor labs and vitals. DVT and GI prophylaxis. Further recommendations as per clinical course of the patient Dictation was produced using [employer] dictation software. please excuse any grammatical, word or spelling errors. Objective - Vital Signs Vital signs: Vital Signs Temp 98.5 F 11/11/24 11:05 Pulse 88 11/11/24 13:02 Resp 19 11/11/24 13:02 BP 142/84 11/11/24 11:05 Pulse Ox 94 L 11/11/24 12:02 FiO2 40 11/11/24 11:05 Intake & Output 11/10/24 11/11/24 11/11/24 18:59 06:59 18:59 Intake Total 236 460 Output Total 1150 450 Balance -914 -450 460 Weight 126.5 kg Intake: IV 20 Invasive Line 2 20 Oral 236 440 Output: Urine 1150 450 Other: Voiding Method External Catheter External Catheter External Catheter # Voids 1 1 - Labs CBC & Chem 7: 11/11/24 07:38 11/11/24 07:38 Labs: Abnormal Lab Results - Last 24 Hours (Table) 11/10/24 11/10/24 11/10/24 Range/Units 16:51 20:39 23:25 Hgb (11.4-16.0) gm/dL MCHC (31.0-37.0) g/dL RDW (11.5-15.5) % ABG pH 7.47 H (7.35-7.45) ABG pCO2 55 H (35-45) mmHg ABG HCO3 40 H* (21-25) mmol/L ABG Total CO2 42 H (19-24) mmol/L ABG O2 Saturation 98.0 H (94-97) % Hemoglobin 10.2 L (11.4-16.0) gm/dL Chloride (98-107) mmol/L Carbon Dioxide (22-30) mmol/L Glucose (74-99) mg/dL POC Glucose (mg/dL) 161 H 148 H (70-110) mg/dL Alkaline Phosphatase (38-126) U/L Total Protein (6.3-8.2) g/dL 11/11/24 11/11/24 11/11/24 Range/Units 06:00 07:38 07:38 Hgb 11.1 L (11.4-16.0) gm/dL MCHC 30.5 L (31.0-37.0) g/dL RDW 16.6 H (11.5-15.5) % ABG pH (7.35-7.45) ABG pCO2 (35-45) mmHg ABG HCO3 (21-25) mmol/L ABG Total CO2 (19-24) mmol/L ABG O2 Saturation (94-97) % Hemoglobin (11.4-16.0) gm/dL Chloride 97 L (98-107) mmol/L Carbon Dioxide 39 H (22-30) mmol/L Glucose 120 H (74-99) mg/dL POC Glucose (mg/dL) 149 H (70-110) mg/dL Alkaline Phosphatase 200 H (38-126) U/L Total Protein 5.8 L (6.3-8.2) g/dL 11/11/24 Range/Units 12:00 Hgb (11.4-16.0) gm/dL MCHC (31.0-37.0) g/dL RDW (11.5-15.5) % ABG pH (7.35-7.45) ABG pCO2 (35-45) mmHg ABG HCO3 (21-25) mmol/L ABG Total CO2 (19-24) mmol/L ABG O2 Saturation (94-97) % Hemoglobin (11.4-16.0) gm/dL Chloride (98-107) mmol/L Carbon Dioxide (22-30) mmol/L Glucose (74-99) mg/dL POC Glucose (mg/dL) 166 H (70-110) mg/dL Alkaline Phosphatase (38-126) U/L Total Protein (6.3-8.2) g/dL
--- NOTE | 2024-11-11 15:08 | P.PN ---
Subjective Progress Note Date: 11/10/24 Principal diagnosis: Reason for follow-up is bilateral lower extremity swelling question of cellulitis Patient is a 64-year-old female with a past medical history signif icant for diabetes mellitus hypertension hyperlipidemia COPD patient has been brought to the hospital for evaluation of mental status changes, patient noted to be hypoxic requiring BiPAP also have lower extremity swelling for evaluation there were concern for possible cellulitis prompted this consultation. On today's evaluation that is 11/10/2024,the patient is more awake and alert today denies any fever or any chills, patient is breathing comfortably on 6 L nasal cannula oxygen, the patient denies chest pain and no significant cough, patient denies abdominal pain, no nausea vomiting or diarrhea. Patient did not have any CBC or BMP done today Objective - Vital Signs Vital signs: Vital Signs Temp 97.5 F L 11/10/24 04:00 Pulse 72 11/10/24 11:41 Resp 19 11/10/24 04:00 BP 117/77 11/10/24 04:00 Pulse Ox 97 11/10/24 08:19 FiO2 40 11/10/24 08:07 Intake & Output 11/09/24 11/10/24 11/10/24 18:59 06:59 18:59 Intake Total 10 118 Output Total 900 Balance -890 118 Weight 125.5 kg Intake: IV 10 Invasive Line 1 10 Oral 118 Output: Urine 900 Other: Voiding Method External Catheter External Catheter # Voids 1 # Bowel Movements 1 - Exam GENERAL DESCRIPTION: Middle-age female lying in bed in no distress RESPIRATORY SYSTEM: Unlabored breathing , decreased breath sounds at bases HEART: S1 S2 regular rate and rhythm , ABDOMEN: Soft , no tenderness EXTREMITIES: Legs are currently wrapped in Felix wrap - Labs CBC & Chem 7: 11/11/24 07:38 11/11/24 07:38 Labs: Abnormal Lab Results - Last 24 Hours (Table) 11/09/24 11/09/24 11/09/24 Range/Units 12:19 16:41 20:16 ABG pCO2 73 H* (35-45) mmHg ABG HCO3 44 H* (21-25) mmol/L ABG Total CO2 46 H (19-24) mmol/L Hemoglobin 10.4 L (11.4-16.0) gm/dL POC Glucose (mg/dL) 114 H 121 H (70-110) mg/dL 11/10/24 11/10/24 11/10/24 Range/Units 00:00 05:44 11:46 ABG pCO2 (35-45) mmHg ABG HCO3 (21-25) mmol/L ABG Total CO2 (19-24) mmol/L Hemoglobin (11.4-16.0) gm/dL POC Glucose (mg/dL) 120 H 115 H 120 H (70-110) mg/dL Microbiology - Last 24 Hours (Table) 11/07/24 11:30 Urine Culture - Final Urine,Voided Assessment and Plan (1) Swelling of both lower extremities Current Visit: Yes Status: Acute Code(s): M79.89 - OTHER SPECIFIED SOFT TISSUE DISORDERS SNOMED Code(s): 411334484 (2) Bilateral lower leg cellulitis Current Visit: Yes Status: Acute Code(s): L03.116 - CELLULITIS OF LEFT LOWER LIMB; L03.115 - CELLULITIS OF RIGHT LOWER LIMB SNOMED Code(s): 465823783 Plan: 1patient with presentation to hospital with mental status changes hypoxemia increasing shortness of breath in this patient who do have features of fluid overload with evidence of diffuse swelling to lower extremity that was negative for DVT mild erythema could be related to the venous stasis cellulitis less likely but not excluded patient also have a negative UA hard to get any history from this patient regarding urinary symptoms clinical suspicious low for UTI 2patient to continue with Felix wrap to get some of the swelling lower extremity to get the swelling down along with Rocephin Dictation was produced using [employer] dictation software. please excuse any grammatical, word or spelling errors. Time with Patient: Less than 30
--- NOTE | 2024-11-11 15:09 | P.PN ---
Subjective Progress Note Date: 11/11/24 Principal diagnosis: Reason for follow-up is bilateral lower extremity swelling question of cellulitis Patient is a 64-year-old female with a past medical history signif icant for diabetes mellitus hypertension hyperlipidemia COPD patient has been brought to the hospital for evaluation of mental status changes, patient noted to be hypoxic requiring BiPAP also have lower extremity swelling for evaluation there were concern for possible cellulitis prompted this consultation. On today's evaluation that is 11/11/2024,the patient remains to be afebrile, patient is on 6 L nasal cannula supplemental oxygen however the patient has been requiring mostly BiPAP as reported by the nursing staff patient is also pleasantly confused no vomiting or diarrhea has been reported. Patient white count is 7.1 creatinine 0.57 urine culture negative Objective - Vital Signs Vital signs: Vital Signs Temp 98.5 F 11/11/24 11:05 Pulse 88 11/11/24 13:02 Resp 19 11/11/24 13:02 BP 142/84 11/11/24 11:05 Pulse Ox 94 L 11/11/24 12:02 FiO2 40 11/11/24 11:05 Intake & Output 11/10/24 11/11/24 11/11/24 18:59 06:59 18:59 Intake Total 236 460 Output Total 1150 450 Balance -914 -450 460 Weight 126.5 kg 126.5 kg Intake: IV 20 Invasive Line 2 20 Oral 236 440 Output: Urine 1150 450 Other: Voiding Method External Catheter External Catheter External Catheter # Voids 1 1 - Exam GENERAL DESCRIPTION: Middle-age female lying in bed in no distress RESPIRATORY SYSTEM: Unlabored breathing , decreased breath sounds at bases HEART: S1 S2 regular rate and rhythm , ABDOMEN: Soft , no tenderness EXTREMITIES: Legs are currently wrapped in Felix wrap - Labs CBC & Chem 7: 11/11/24 07:38 11/11/24 07:38 Labs: Abnormal Lab Results - Last 24 Hours (Table) 11/10/24 11/10/24 11/10/24 Range/Units 16:51 20:39 23:25 Hgb (11.4-16.0) gm/dL MCHC (31.0-37.0) g/dL RDW (11.5-15.5) % ABG pH 7.47 H (7.35-7.45) ABG pCO2 55 H (35-45) mmHg ABG HCO3 40 H* (21-25) mmol/L ABG Total CO2 42 H (19-24) mmol/L ABG O2 Saturation 98.0 H (94-97) % Hemoglobin 10.2 L (11.4-16.0) gm/dL Chloride (98-107) mmol/L Carbon Dioxide (22-30) mmol/L Glucose (74-99) mg/dL POC Glucose (mg/dL) 161 H 148 H (70-110) mg/dL Alkaline Phosphatase (38-126) U/L Total Protein (6.3-8.2) g/dL 11/11/24 11/11/24 11/11/24 Range/Units 06:00 07:38 07:38 Hgb 11.1 L (11.4-16.0) gm/dL MCHC 30.5 L (31.0-37.0) g/dL RDW 16.6 H (11.5-15.5) % ABG pH (7.35-7.45) ABG pCO2 (35-45) mmHg ABG HCO3 (21-25) mmol/L ABG Total CO2 (19-24) mmol/L ABG O2 Saturation (94-97) % Hemoglobin (11.4-16.0) gm/dL Chloride 97 L (98-107) mmol/L Carbon Dioxide 39 H (22-30) mmol/L Glucose 120 H (74-99) mg/dL POC Glucose (mg/dL) 149 H (70-110) mg/dL Alkaline Phosphatase 200 H (38-126) U/L Total Protein 5.8 L (6.3-8.2) g/dL 11/11/24 Range/Units 12:00 Hgb (11.4-16.0) gm/dL MCHC (31.0-37.0) g/dL RDW (11.5-15.5) % ABG pH (7.35-7.45) ABG pCO2 (35-45) mmHg ABG HCO3 (21-25) mmol/L ABG Total CO2 (19-24) mmol/L ABG O2 Saturation (94-97) % Hemoglobin (11.4-16.0) gm/dL Chloride (98-107) mmol/L Carbon Dioxide (22-30) mmol/L Glucose (74-99) mg/dL POC Glucose (mg/dL) 166 H (70-110) mg/dL Alkaline Phosphatase (38-126) U/L Total Protein (6.3-8.2) g/dL Assessment and Plan (1) Swelling of both lower extremities Current Visit: Yes Status: Acute Code(s): M79.89 - OTHER SPECIFIED SOFT TISSUE DISORDERS SNOMED Code(s): 587165450 (2) Bilateral lower leg cellulitis Current Visit: Yes Status: Acute Code(s): L03.116 - CELLULITIS OF LEFT LOWER LIMB; L03.115 - CELLULITIS OF RIGHT LOWER LIMB SNOMED Code(s): 882399940 Plan: 1patient with presentation to hospital with mental status changes hypoxemia increasing shortness of breath in this patient who do have features of fluid overload with evidence of diffuse swelling to lower extremity that was negative for DVT mild erythema could be related to the venous stasis cellulitis less likely but not excluded patient also have a negative UA hard to get any history from this patient regarding urinary symptoms clinical suspicious low for UTI 2patient to continue with Felix wrap to get swelling lower extremity down we will reevaluate legs tomorrow at the time of dressing changes continue Rocephin Dictation was produced using [employer] dictation software. please excuse any grammatical, word or spelling errors. Time with Patient: Less than 30
[2024-11-11 17:20] LABS: Glucose,Whole Blood 221 mg/dL (70-110)
[2024-11-12] MEDS: IPRATROPIUM-ALBUTEROL 3 ML NEB INHALATION PRN (00:03)
[2024-11-12 00:09] LABS: Glucose,Whole Blood 152 mg/dL (70-110)
[2024-11-12 01:32] LABS: Glucose,Whole Blood 157 mg/dL (70-110)
[2024-11-12 06:16] LABS: Glucose,Whole Blood 156 mg/dL (70-110)
[2024-11-12 07:52] LABS: Anisocytosis Slight; Basophils % (A) 0 %; Eosinophils % (A) 0 %; HGB 10.3 gm/dL (11.4-16.0); Hypochromasia Marked; Lymphocytes # (A) 1.1 k/uL (1.0-4.8); Lymphocytes % (A) 18 %; MCH 28.6 pg (25.0-35.0); MCHC 31.1 g/dL (31.0-37.0); MCV 92.1 fL (80.0-100.0); Mean Platelet Volume 7.9; Monocytes # (A) 0.5 k/uL (0-1.0); Monocytes % (A) 8 %; Neutrophils # (A) 4.7 k/uL (1.3-7.7); Neutrophils % (A) 72 %; Platelet Count 189 k/uL (150-450); Poikilocytosis Slight; RBC 3.59 m/uL (3.80-5.40); WBC 6.5 k/uL (3.8-10.6)
[2024-11-12 08:15] LABS: ALT 11 U/L (4-34); AST 17 U/L (14-36); African American GFR (CKD) >90 (>60 ml/min/1.73 sqM); Albumin 3.2 g/dL (3.5-5.0); Alkaline Phosphatase 173 U/L (38-126); Blood Urea Nitrogen 17 mg/dL (7-17); Calcium 8.6 mg/dL (8.4-10.2); Chloride 99 mmol/L (98-107); Glucose 131 mg/dL (74-99); Non-African American GFR(CKD) >90 (>60 ml/min/1.73 sqM); Potassium 3.4 mmol/L (3.5-5.1); Sodium 141 mmol/L (137-145); Total Bilirubin 0.4 mg/dL (0.2-1.3); Total Protein 5.3 g/dL (6.3-8.2)
[2024-11-12 08:21] LABS: Anion Gap 4 mmol/L
[2024-11-12 08:26] LABS: Carbon Dioxide 38 mmol/L (22-30)
[2024-11-12 11:21] LABS: Glucose,Whole Blood 180 mg/dL (70-110)
[2024-11-12] MEDS ORDERED: Potassium Replacement Protocol 1 EACH MISC MISCELLANE PRN (12:17)
[2024-11-12] MEDS: POTASSIUM CHLORIDE ER 20 MEQ TAB.ER PO SCH (12:23)
--- NOTE | 2024-11-12 12:48 | P.PN ---
Subjective Progress Note Date: 11/12/24 This is a 64-year-old female patient is being seen in consultation as the patient presented to the hospital with altered mentation with some ongoing hypoxemia. The patient is known to have COPD with chronic hypoxic respiratory failure. She is morbidly obese with a BMI of 47.0. She is oxygen dependent. She is also known to have diabetes mellitus, hyperlipidemia and schizophrenia. She is a long-term resident at [facility]. At the time of her admission, the patient was placed on a nonrebreather facemask and subsequently the patient was transition to BiPAP. EKG showed a normal sinus rhythm. Chest x-ray showed smaller lung volumes and generalized hazy appearance atelectasis and component of pulm vessel congestion/edema. CT of the chest showed no evidence of any pulmonary embolism. There was scattered sclerotic foci throughout the osseous structures correlated with possible malignancy. Mild cardiomegaly. Mild pulm vessel congestion. There was motion artifact. CAT scan of the brain was negative. The white cell count was at 7.5 with a hemoglobin 10.8 and a D-dimer of 0.82. Sodium is at 140, potassium is 3.9, serum bicarb is at 40 with a BUN of 17 and a creatinine of 0.6. proBNP level was 915. Troponins were negative. Viral 4 Plex was negative. The blood gas was also obtained that showed a chronic hypercapnic respiratory failure with a pH of 7.42 with a pCO2 of 67 and pO2 of 75. UA showed +1 ketones, +1 protein, no infections. The patient is currently on DuoNeb nebulized treatments [id number]. She was started on IV Rocephin. She was started on Lasix 40 mg IV every 12 hours. She is also on Levemir insulin 10 units daily and sliding scale insulin coverage. She has been maintained on long-term anticoagulation with Xarelto.Doppler of the lower extremities were negative for DVT. D-dimer is at 0.82. The patient is seen today November 08, 2024 in follow-up on the selective care unit. She is currently sitting up in bed. Awake and alert in no acute di stress. A boating safety officer is at the bedside. She is maintaining good O2 saturations in the mid 90s on 5 L high flow nasal cannula. She has been afebrile. Hemodynamically stable. White count 8.1. Hemoglobin 10.0. Platelets 244. Sodium 141. Potassium 3.5. Bicarb 42. BUN 21. Creatinine 0.74. Glucose 142. She remains on DuoNeb inhalations, Pulmicort inhalations. Antibiotics in the form of ceftriaxone. She remains on oral diuretics. Anticoagulated with Xarelto. The patient is seen today November 09, 2024 in follow-up on the selective care unit. She is currently resting in bed. Somewhat drowsy but arousable. Currently on BiPAP 14/5 and 55% FiO2. Arterial blood gases were drawn and show a PaO2 of 87, pCO2 of 73 and a pH of 7.39. White count 6.3. Hemoglobin 10.3. Platelets 220. Sodium 144. Potassium 3.8. Bicarb 41. BUN 30. Creatinine 0.66. Glucose 107. She remains on ceftriaxone. Continued on DuoNeb inhalations. Remains on oral diuretics. Anticoagulated with Xarelto. The patient is seen today November 10, 2024 in follow-up on the selective care unit. She is more awake and alert today compared to yesterday. No worsening shortness of breath, cough or congestion. She is maintaining good O2 saturations in the 90s on 6 L/min per nasal cannula. Alternating with BiPAP 15/5 and 40% FiO2. She is continued on DuoNeb inhalations, Pulmicort inhalations. Remains on oral diuretics. Remains on ceftriaxone. Anticoagulated with Xarelto. Urine culture revealed no growth. Glucose 120. The patient is seen today November 11, 2024 in follow-up on the selective care unit. She is resting in bed. Awake and alert in no acute distress. Denies any worsening shortness of breath, cough or congestion. She is currently on 6 L high flow nasal cannula. She is alternating with BiPAP 14/5 and 40% FiO2. She remains on DuoNeb and elations, Pulmicort inhalations. Xarelto for anticoagulation. Remains on oral diuretics. Urine culture revealed no growth. Currently on ceftriaxone. White count 7.1. Hemoglobin 11.1. Platelets 199. Sodium 141. Potassium 3.5. Bicarb 39. BUN 16. Creatinine 0.57. Glucose 120. The patient is seen today November 12, 2024 in follow-up on the selective care unit. She is currently sitting up in bed. Awake and alert in no acute distress. Maintaining good O2 saturations in the 90s on 6 L/min per high flow nasal cannula. She is afebrile. Hemodynamically stable. White count 6.5. Hemoglobin 10.3. Platelets 189. Sodium 141. Potassium 3.4. Bicarb 38. BUN 17. Creatinine 0.60. Glucose 131. She is continued on DuoNeb inhalations, Pulmicort inhalations, anticoagulated with Xarelto. She remains on antibiotics in the form of ceftriaxone. Continued on oral diuretics. Objective - Vital Signs Vital signs: Vital Signs Temp 97.9 F 11/12/24 11:02 Pulse 69 11/12/24 11:02 Resp 20 11/12/24 11:02 BP 116/70 11/12/24 11:02 Pulse Ox 94 L 11/12/24 11:02 FiO2 40 11/12/24 04:14 Intake & Output 11/11/24 11/12/24 11/12/24 18:59 06:59 18:59 Intake Total 640 10 118 Output Total 1600 500 Balance -960 -490 118 Weight 126.5 kg 126.5 kg Intake: IV 20 10 Invasive Line 2 20 10 Oral 620 118 Output: Urine 1600 500 Other: Voiding Method External Catheter External Catheter External Catheter # Voids 1 - Exam GENERAL EXAM: Awake, alert 64-year-old female, sitting up in bed, on 6 L nasal cannula alternating with BiPAP 14/5 and 40% FiO2. HEAD: Normocephalic. EYES: Normal reaction of pupils, equal size. NOSE: Clear with pink turbinates. THROAT: No erythema or exudates. NECK: No masses, no JVD. CHEST: No chest wall deformity. LUNGS: Equal air entry with bilateral scattered rhonchi. CVS: S1 and S2 normal with an audible murmur, regular rhythm. ABDOMEN: No hepatosplenomegaly, normal bowel sounds, no guarding or rigidity. SPINE: No scoliosis or deformity SKIN: No rashes CENTRAL NERVOUS SYSTEM: No focal deficits, tone is normal in all 4 extremities. EXTREMITIES: There is 1-2+ chronic peripheral edema. No clubbing, no cyanosis. Peripheral pulses are intact. - Labs CBC & Chem 7: 11/12/24 07:04 11/12/24 07:04 Labs: Abnormal Lab Results - Last 24 Hours (Table) 11/11/24 11/12/24 11/12/24 Range/Units 17:18 00:08 01:31 RBC (3.80-5.40) m/uL Hgb (11.4-16.0) gm/dL Hct (34.0-46.0) % RDW (11.5-15.5) % Potassium (3.5-5.1) mmol/L Carbon Dioxide (22-30) mmol/L Glucose (74-99) mg/dL POC Glucose (mg/dL) 221 H 152 H 157 H (70-110) mg/dL Alkaline Phosphatase (38-126) U/L Total Protein (6.3-8.2) g/dL Albumin (3.5-5.0) g/dL 11/12/24 11/12/24 11/12/24 Range/Units 06:14 07:04 07:04 RBC 3.59 L (3.80-5.40) m/uL Hgb 10.3 L (11.4-16.0) gm/dL Hct 33.0 L (34.0-46.0) % RDW 17.0 H (11.5-15.5) % Potassium 3.4 L (3.5-5.1) mmol/L Carbon Dioxide 38 H (22-30) mmol/L Glucose 131 H (74-99) mg/dL POC Glucose (mg/dL) 156 H (70-110) mg/dL Alkaline Phosphatase 173 H (38-126) U/L Total Protein 5.3 L (6.3-8.2) g/dL Albumin 3.2 L (3.5-5.0) g/dL 11/12/24 Range/Units 11:19 RBC (3.80-5.40) m/uL Hgb (11.4-16.0) gm/dL Hct (34.0-46.0) % RDW (11.5-15.5) % Potassium (3.5-5.1) mmol/L Carbon Dioxide (22-30) mmol/L Glucose (74-99) mg/dL POC Glucose (mg/dL) 180 H (70-110) mg/dL Alkaline Phosphatase (38-126) U/L Total Protein (6.3-8.2) g/dL Albumin (3.5-5.0) g/dL Assessment and Plan Assessment: Altered mental status under investigation. Rule out metabolic factors and the blood gases showing chronic compensated respiratory acidosis. Patient was hypoxic at the time of admission could be attributed to a component of COPD and mild CHF with diastolic failure.CAT scan of the chest was reviewed and there is no evidence of any pulmonary embolism. There is motion artifact and there is COPD and mild pulm venous congestion. The patient was started on bronchodilators and Lasix. Started on empiric antibiotic coverage with IV Rocephin. Urine culture revealed no growth. The patient is awake and alert today November 12, 2024 Acute on chronic hypoxic/hypercapnic respiratory failure, currently on BiPAP 14/5 and 40% FiO2 Acute exacerbation of chronic obstructive pulmonary disease. Suspect CHF with diastolic heart failure, proBNP level is mildly elevated History of chronic tobacco dependence. schizophrenia. Diabetes mellitus, type II. History of seizures. Chronic lower extremity edema. Repeated Dopplers have been negative for DVT and the patient has been maintained on Xarelto Hypertension. Hyperlipidemia. jail resident with an impaired based on performance and functional status Previous history of COVID-19 infection, 2021 in 2022, x 2 Plan: The patient was seen and evaluated Labs and medications reviewed Remains awake and alert Continue bronchodilators Alternating BiPAP with 6 L high flow nasal cannula Titrate down the FiO2 as tolerated Antibiotics per ID service Plan is to return to [facility] at discharge This patient was seen independently by the pulmonary nurse practitioner addressing pulmonary issues I have personally seen and examined the patient, performed the documentation and the assessment and plan as written. Number of minutes spent on the visit: 25 Dictation was produced using [employer] dictation software. Please excuse any g rammatical, word or spelling errors.
--- NOTE | 2024-11-12 15:27 | P.PN ---
Subjective Progress Note Date: 11/12/24 Principal diagnosis: Reason for follow-up is bilateral lower extremity swelling question of cellulitis Patient is a 64-year-old female with a past medical history signif icant for diabetes mellitus hypertension hyperlipidemia COPD patient has been brought to the hospital for evaluation of mental status changes, patient noted to be hypoxic requiring BiPAP also have lower extremity swelling for evaluation there were concern for possible cellulitis prompted this consultation. On today's evaluation that is 11/12/2024, the patient continues to be afebrile, the patient is on 6 L nasal oxygen and breathing slightly comfortably, the Pt is not a good historian but when asked specifically denies having any chest pain or cough, the patient denies having any abdominal pain no vomiting or any diarrhea has been reported by the nursing staff. Patient white count 6.5, creatinine 0.60 Objective - Vital Signs Vital signs: Vital Signs Temp 97.9 F 11/12/24 11:02 Pulse 69 11/12/24 11:02 Resp 20 11/12/24 11:02 BP 116/70 11/12/24 11:02 Pulse Ox 94 L 11/12/24 11:02 FiO2 40 11/12/24 04:14 Intake & Output 11/11/24 11/12/24 11/12/24 18:59 06:59 18:59 Intake Total 640 10 236 Output Total 1600 500 300 Balance -960 -490 -64 Weight 126.5 kg 126.5 kg Intake: IV 20 10 Invasive Line 2 20 10 Oral 620 236 Output: Urine 1600 500 300 Other: Voiding Method External Catheter External Catheter External Catheter # Voids 1 - Exam GENERAL DESCRIPTION: Middle-age female lying in bed in no distress RESPIRATORY SYSTEM: Unlabored breathing , decreased breath sounds at bases HEART: S1 S2 regular rate and rhythm , ABDOMEN: Soft , no tenderness EXTREMITIES: Legs are currently wrapped in Felix wrap - Labs CBC & Chem 7: 11/12/24 07:04 11/12/24 07:04 Labs: Abnormal Lab Results - Last 24 Hours (Table) 11/11/24 11/12/24 11/12/24 Range/Units 17:18 00:08 01:31 RBC (3.80-5.40) m/uL Hgb (11.4-16.0) gm/dL Hct (34.0-46.0) % RDW (11.5-15.5) % Potassium (3.5-5.1) mmol/L Carbon Dioxide (22-30) mmol/L Glucose (74-99) mg/dL POC Glucose (mg/dL) 221 H 152 H 157 H (70-110) mg/dL Alkaline Phosphatase (38-126) U/L Total Protein (6.3-8.2) g/dL Albumin (3.5-5.0) g/dL 11/12/24 11/12/24 11/12/24 Range/Units 06:14 07:04 07:04 RBC 3.59 L (3.80-5.40) m/uL Hgb 10.3 L (11.4-16.0) gm/dL Hct 33.0 L (34.0-46.0) % RDW 17.0 H (11.5-15.5) % Potassium 3.4 L (3.5-5.1) mmol/L Carbon Dioxide 38 H (22-30) mmol/L Glucose 131 H (74-99) mg/dL POC Glucose (mg/dL) 156 H (70-110) mg/dL Alkaline Phosphatase 173 H (38-126) U/L Total Protein 5.3 L (6.3-8.2) g/dL Albumin 3.2 L (3.5-5.0) g/dL 11/12/24 Range/Units 11:19 RBC (3.80-5.40) m/uL Hgb (11.4-16.0) gm/dL Hct (34.0-46.0) % RDW (11.5-15.5) % Potassium (3.5-5.1) mmol/L Carbon Dioxide (22-30) mmol/L Glucose (74-99) mg/dL POC Glucose (mg/dL) 180 H (70-110) mg/dL Alkaline Phosphatase (38-126) U/L Total Protein (6.3-8.2) g/dL Albumin (3.5-5.0) g/dL Assessment and Plan (1) Swelling of both lower extremities Current Visit: Yes Status: Acute Code(s): M79.89 - OTHER SPECIFIED SOFT TISSUE DISORDERS SNOMED Code(s): 651578531 (2) Bilateral lower leg cellulitis Current Visit: Yes Status: Acute Code(s): L03.116 - CELLULITIS OF LEFT LOWER LIMB; L03.115 - CELLULITIS OF RIGHT LOWER LIMB SNOMED Code(s): 627101124 Plan: 1patient with presentation to hospital with mental status changes hypoxemia increasing shortness of breath in this patient who do have features of fluid overload with evidence of diffuse swelling to lower extremity that was negative for DVT mild erythema could be related to the venous stasis cellulitis less likely but not excluded patient also have a negative UA hard to get any history from this patient regarding urinary symptoms clinical suspicious low for UTI 2patient to continue with Rocephin along with Felix wrap to get swelling lower extremity down we will reevaluate legs and monitor clinical course closely Dictation was produced using [employer] dictation software. please excuse any grammatical, word or spelling errors. Time with Patient: Less than 30
[2024-11-12] MEDS: MORPHINE SULFATE 2 MG/ML SYRINGE IVP PRN (16:48)
[2024-11-12] MEDS: ZINC OXIDE PASTE (Z-GUARD) 1 APPLIC TOPICAL PRN (17:01)
[2024-11-12 17:09] LABS: Glucose,Whole Blood 229 mg/dL (70-110)
[2024-11-12 20:15] LABS: Glucose,Whole Blood 170 mg/dL (70-110)
[2024-11-13 00:21] LABS: Glucose,Whole Blood 168 mg/dL (70-110)
[2024-11-13 05:54] LABS: Glucose,Whole Blood 222 mg/dL (70-110)
--- NOTE | 2024-11-13 10:47 | P.PN ---
Subjective Progress Note Date: 11/13/24 This is a 64-year-old female patient is being seen in consultation as the patient presented to the hospital with altered mentation with some ongoing hypoxemia. The patient is known to have COPD with chronic hypoxic respiratory failure. She is morbidly obese with a BMI of 47.0. She is oxygen dependent. She is also known to have diabetes mellitus, hyperlipidemia and schizophrenia. She is a long-term resident at [facility]. At the time of her admission, the patient was placed on a nonrebreather facemask and subsequently the patient was transition to BiPAP. EKG showed a normal sinus rhythm. Chest x-ray showed smaller lung volumes and generalized hazy appearance atelectasis and component of pulm vessel congestion/edema. CT of the chest showed no evidence of any pulmonary embolism. There was scattered sclerotic foci throughout the osseous structures correlated with possible malignancy. Mild cardiomegaly. Mild pulm vessel congestion. There was motion artifact. CAT scan of the brain was negative. The white cell count was at 7.5 with a hemoglobin 10.8 and a D-dimer of 0.82. Sodium is at 140, potassium is 3.9, serum bicarb is at 40 with a BUN of 17 and a creatinine of 0.6. proBNP level was 915. Troponins were negative. Viral 4 Plex was negative. The blood gas was also obtained that showed a chronic hypercapnic respiratory failure with a pH of 7.42 with a pCO2 of 67 and pO2 of 75. UA showed +1 ketones, +1 protein, no infections. The patient is currently on DuoNeb nebulized treatments [id number]. She was started on IV Rocephin. She was started on Lasix 40 mg IV every 12 hours. She is also on Levemir insulin 10 units daily and sliding scale insulin coverage. She has been maintained on long-term anticoagulation with Xarelto.Doppler of the lower extremities were negative for DVT. D-dimer is at 0.82. The patient is seen today November 08, 2024 in follow-up on the selective care unit. She is currently sitting up in bed. Awake and alert in no acute di stress. A airworthiness safety inspector is at the bedside. She is maintaining good O2 saturations in the mid 90s on 5 L high flow nasal cannula. She has been afebrile. Hemodynamically stable. White count 8.1. Hemoglobin 10.0. Platelets 244. Sodium 141. Potassium 3.5. Bicarb 42. BUN 21. Creatinine 0.74. Glucose 142. She remains on DuoNeb inhalations, Pulmicort inhalations. Antibiotics in the form of ceftriaxone. She remains on oral diuretics. Anticoagulated with Xarelto. The patient is seen today November 09, 2024 in follow-up on the selective care unit. She is currently resting in bed. Somewhat drowsy but arousable. Currently on BiPAP 14/5 and 55% FiO2. Arterial blood gases were drawn and show a PaO2 of 87, pCO2 of 73 and a pH of 7.39. White count 6.3. Hemoglobin 10.3. Platelets 220. Sodium 144. Potassium 3.8. Bicarb 41. BUN 30. Creatinine 0.66. Glucose 107. She remains on ceftriaxone. Continued on DuoNeb inhalations. Remains on oral diuretics. Anticoagulated with Xarelto. The patient is seen today November 10, 2024 in follow-up on the selective care unit. She is more awake and alert today compared to yesterday. No worsening shortness of breath, cough or congestion. She is maintaining good O2 saturations in the 90s on 6 L/min per nasal cannula. Alternating with BiPAP 15/5 and 40% FiO2. She is continued on DuoNeb inhalations, Pulmicort inhalations. Remains on oral diuretics. Remains on ceftriaxone. Anticoagulated with Xarelto. Urine culture revealed no growth. Glucose 120. The patient is seen today November 11, 2024 in follow-up on the selective care unit. She is resting in bed. Awake and alert in no acute distress. Denies any worsening shortness of breath, cough or congestion. She is currently on 6 L high flow nasal cannula. She is alternating with BiPAP 14/5 and 40% FiO2. She remains on DuoNeb and elations, Pulmicort inhalations. Xarelto for anticoagulation. Remains on oral diuretics. Urine culture revealed no growth. Currently on ceftriaxone. White count 7.1. Hemoglobin 11.1. Platelets 199. Sodium 141. Potassium 3.5. Bicarb 39. BUN 16. Creatinine 0.57. Glucose 120. The patient is seen today November 12, 2024 in follow-up on the selective care unit. She is currently sitting up in bed. Awake and alert in no acute distress. Maintaining good O2 saturations in the 90s on 6 L/min per high flow nasal cannula. She is afebrile. Hemodynamically stable. White count 6.5. Hemoglobin 10.3. Platelets 189. Sodium 141. Potassium 3.4. Bicarb 38. BUN 17. Creatinine 0.60. Glucose 131. She is continued on DuoNeb inhalations, Pulmicort inhalations, anticoagulated with Xarelto. She remains on antibiotics in the form of ceftriaxone. Continued on oral diuretics. The patient is seen today November 13, 2024 in follow-up on the selective care unit. She is currently on BiPAP. Arousable. Her mentation continues to wax and wane. She did wear BiPAP last night 14/5 and 40% FiO2. Alternating with 6 L high flow nasal cannula when awake and alert. She remains on DuoNeb and elations, Pulmicort. Remains on oral diuretics. Remains on ceftriaxone. Anticoagulated with Xarelto. Urine culture revealed no growth. Glucose 222. Objective - Vital Signs Vital signs: Vital Signs Temp 98.1 F 11/13/24 08:35 Pulse 82 11/13/24 08:40 Resp 18 11/13/24 08:35 BP 102/60 11/13/24 08:35 Pulse Ox 94 L 11/13/24 08:35 FiO2 40 11/13/24 08:35 Intake & Output 11/12/24 11/13/24 11/13/24 18:59 06:59 18:59 Intake Total 586 240 Output Total 300 200 Balance 286 40 Weight 126.5 kg Intake: Oral 586 240 Output: Urine 300 200 Other: Voiding Method External Catheter External Catheter External Catheter - Exam GENERAL EXAM: Arousable 64-year-old female, resting in bed, on BiPAP 14/5 and 40% FiO2. HEAD: Normocephalic. EYES: Normal reaction of pupils, equal size. NOSE: Clear with pink turbinates. THROAT: No erythema or exudates. NECK: No masses, no JVD. CHEST: No chest wall deformity. LUNGS: Equal air entry with bilateral scattered rhonchi. CVS: S1 and S2 normal with an audible murmur, regular rhythm. ABDOMEN: No hepatosplenomegaly, normal bowel sounds, no guarding or rigidity. SPINE: No scoliosis or deformity SKIN: No rashes CENTRAL NERVOUS SYSTEM: No focal deficits, tone is normal in all 4 extremities. EXTREMITIES: Felix wraps on the bilateral lower extremities. There is 1-2+ chronic peripheral edema. Peripheral pulses are intact. - Labs CBC & Chem 7: 11/12/24 07:04 11/12/24 07:04 Labs: Abnormal Lab Results - Last 24 Hours (Table) 11/12/24 11/12/24 11/12/24 Range/Units 11:19 17:06 20:13 POC Glucose (mg/dL) 180 H 229 H 170 H (70-110) mg/dL 11/13/24 11/13/24 Range/Units 00:20 05:52 POC Glucose (mg/dL) 168 H 222 H (70-110) mg/dL Assessment and Plan Assessment: Altered mental status under investigation. Rule out metabolic factors and the blood gases showing chronic compensated respiratory acidosis. Patient was hypoxic at the time of admission could be attributed to a component of COPD and mild CHF with diastolic failure.CAT scan of the chest was reviewed and there is no evidence of any pulmonary embolism. There is motion artifact and there is COPD and mild pulm venous congestion. The patient was started on bronchodilators and Lasix. Started on empiric antibiotic coverage with IV Rocephin. Urine culture revealed no growth. Continues with episodes of awake and alertness along with episodes of lethargy. Acute on chronic hypoxic/hypercapnic respiratory failure, currently on BiPAP 14/5 and 40% FiO2 Acute exacerbation of chronic obstructive pulmonary disease. Suspect CHF with diastolic heart failure, proBNP level is mildly elevated History of chronic tobacco dependence. schizophrenia. Diabetes mellitus, type II. History of seizures. Chronic lower extremity edema. Repeated Dopplers have been negative for DVT and the patient has been maintained on Xarelto Hypertension. Hyperlipidemia. half-way resident with an impaired based on performance and functional status Previous history of COVID-19 infection, 202 in 2022, x 2 Plan: The patient was seen and evaluated Labs and medications reviewed Mentation continues to wax and wane Alternating BiPAP with 6 L high flow nasal cannula Titrate down the FiO2 as tolerated Continue bronchodilators Plan is to return to [facility] at discharge This patient was seen independently by the pulmonary nurse practitioner addressing pulmonary issues I have personally seen and examined the patient, performed the documentation and the assessment and plan as written. Number of minutes spent on the visit: 23 Dictation was produced using [employer] dictation software. Please excuse any gr ammatical, word or spelling errors.
[2024-11-13 11:29] LABS: Glucose,Whole Blood 150 mg/dL (70-110)
[2024-11-13 12:26] LABS: Anisocytosis Slight; Basophils % (A) 0 %; Eosinophils % (A) 0 %; HCT 31.8 % (34.0-46.0); Hypochromasia Marked; Lymphocytes # (A) 1.8 k/uL (1.0-4.8); Lymphocytes % (A) 25 %; MCH 28.9 pg (25.0-35.0); MCHC 31.3 g/dL (31.0-37.0); MCV 92.3 fL (80.0-100.0); Mean Platelet Volume 7.9; Monocytes # (A) 0.7 k/uL (0-1.0); Monocytes % (A) 10 %; Neutrophils # (A) 4.7 k/uL (1.3-7.7); Neutrophils % (A) 63 %; Platelet Count 188 k/uL (150-450); RBC 3.45 m/uL (3.80-5.40); RDW 16.7 % (11.5-15.5); WBC 7.4 k/uL (3.8-10.6)
[2024-11-13 12:46] LABS: African American GFR (CKD) >90 (>60 ml/min/1.73 sqM); Blood Urea Nitrogen 23 mg/dL (7-17); Calcium 8.8 mg/dL (8.4-10.2); Chloride 97 mmol/L (98-107); Glucose 138 mg/dL (74-99); Non-African American GFR(CKD) >90 (>60 ml/min/1.73 sqM); Sodium 139 mmol/L (137-145)
[2024-11-13 12:53] LABS: Anion Gap 4 mmol/L
[2024-11-13 13:00] LABS: Carbon Dioxide 38 mmol/L (22-30)
[2024-11-13 16:34] LABS: Glucose,Whole Blood 145 mg/dL (70-110)
--- NOTE | 2024-11-13 16:41 | P.PN ---
Subjective Progress Note Date: 11/12/24 64 years old male with past medical history of multiple medical problems as below. Patient currently on BiPAP and confused and drowsy and cannot provide information On admission patient was saturating 391% on 3 L. Later on to get worse saturating dropped to 84% on 4 L and she was tachypneic, currently she is placed on BiPAP. As per documents patient was transferred from [place] for altered mental sta tus, she woke up but she was lethargic. #1 suspecting she has pneumonia and she is on 3 L oxygen Patient is afebrile vitals are stable Labs showing mild anemia with hemoglobin 10.7, other labs were unremarkable CBC, BMP, LFT, INR. Troponin x 2 are negative. Urine analysis is positive for nitrite. TSH is normal at 0.9 Influenza A and type B, RSV, SARS (coronavirus) are undetected Chest x-ray: No acute process EKG showing sinus rhythm at [address]-T changes D-dimer elevated at 0.8 CTA of the chest is negative for PE but showing scattered sclerotic foci suspicious for malignancy and metastatic disease associated with mild cardiomegaly and pulmonary vascular congestion CT of the brain is negative for acute process. In emergency room patient received antibiotics cefepime and Zithromax Objective - Vital Signs Vital signs: Vital Signs Temp 97.9 F 11/12/24 11:02 Pulse 69 11/12/24 11:02 Resp 20 11/12/24 11:02 BP 116/70 11/12/24 11:02 Pulse Ox 94 L 11/12/24 11:02 FiO2 40 11/12/24 04:14 Intake & Output 11/11/24 11/12/24 11/12/24 18:59 06:59 18:59 Intake Total 640 10 118 Output Total 1600 500 Balance -960 -490 118 Weight 126.5 kg 126.5 kg Intake: IV 20 10 Invasive Line 2 20 10 Oral 620 118 Output: Urine 1600 500 Other: Voiding Method External Catheter External Catheter External Catheter # Voids 1 - Exam GENERAL: The patient is alert HEENT: Pupils are round and equally reacting to light. EOMI. No scleral icterus. No conjunctival pallor. Normocephalic, atraumatic. No pharyngeal erythema. No thyromegaly. CARDIOVASCULAR: S1 and S2 present. No murmurs, rubs, or gallops. PULMONARY: Diminished breath sounds at the bases bilaterally, no wheezing or crackles. ABDOMEN: Soft, nontender, nondistended, normoactive bowel sounds. No palpable organomegaly. MUSCULOSKELETAL: No joint swelling or deformity. EXTREMITIES: No cyanosis, clubbing, or pedal edema. NEUROLOGICAL: Moving all extremities SKIN: No rashes. - Labs CBC & Chem 7: 11/13/24 12:00 11/13/24 12:00 Labs: Abnormal Lab Results - Last 24 Hours (Table) 11/11/24 11/12/24 11/12/24 Range/Units 17:18 00:08 01:31 RBC (3.80-5.40) m/uL Hgb (11.4-16.0) gm/dL Hct (34.0-46.0) % RDW (11.5-15.5) % Potassium (3.5-5.1) mmol/L Carbon Dioxide (22-30) mmol/L Glucose (74-99) mg/dL POC Glucose (mg/dL) 221 H 152 H 157 H (70-110) mg/dL Alkaline Phosphatase (38-126) U/L Total Protein (6.3-8.2) g/dL Albumin (3.5-5.0) g/dL 11/12/24 11/12/24 11/12/24 Range/Units 06:14 07:04 07:04 RBC 3.59 L (3.80-5.40) m/uL Hgb 10.3 L (11.4-16.0) gm/dL Hct 33.0 L (34.0-46.0) % RDW 17.0 H (11.5-15.5) % Potassium 3.4 L (3.5-5.1) mmol/L Carbon Dioxide 38 H (22-30) mmol/L Glucose 131 H (74-99) mg/dL POC Glucose (mg/dL) 156 H (70-110) mg/dL Alkaline Phosphatase 173 H (38-126) U/L Total Protein 5.3 L (6.3-8.2) g/dL Albumin 3.2 L (3.5-5.0) g/dL 11/12/24 Range/Units 11:19 RBC (3.80-5.40) m/uL Hgb (11.4-16.0) gm/dL Hct (34.0-46.0) % RDW (11.5-15.5) % Potassium (3.5-5.1) mmol/L Carbon Dioxide (22-30) mmol/L Glucose (74-99) mg/dL POC Glucose (mg/dL) 180 H (70-110) mg/dL Alkaline Phosphatase (38-126) U/L Total Protein (6.3-8.2) g/dL Albumin (3.5-5.0) g/dL Assessment and Plan Assessment: Acute metabolic encephalopathy Acute on chronic hypoxic/hypercapnic respiratory failure, Acute exacerbation of chronic obstructive pulmonary disease. Suspect CHF with diastolic heart failure, proBNP level is mildly elevated History of chronic tobacco dependence. schizophrenia. Diabetes mellitus, type II. History of seizures. Chronic lower extremity edema. Repeated Dopplers have been negative for DVT and the patient has been maintained on Xarelto Hypertension. Hyperlipidemia. [facility] resident with an impaired based on performance and functional status Previous history of COVID-19 infection, 2021 in 2022, x 2 Monitor vital signs Monitor CBC Monitor CMP Continue telemetry monitoring Continue oxygen supplementation Continue BiPAP Continue breathing treatments Continue aspirin, Lipitor Continue IV Rocephin Monitor blood sugar levels, continue sliding scale insulin Pulmonology following
--- NOTE | 2024-11-13 17:59 | P.PN ---
Subjective Progress Note Date: 11/13/24 64 years old male with past medical history of multiple medical problems as below. Patient currently on BiPAP and confused and drowsy and cannot provide information On admission patient was saturating 391% on 3 L. Later on to get worse saturating dropped to 84% on 4 L and she was tachypneic, currently she is placed on BiPAP. As per documents patient was transferred from [place] for altered mental sta tus, she woke up but she was lethargic. #1 suspecting she has pneumonia and she is on 3 L oxygen Patient is afebrile vitals are stable Labs showing mild anemia with hemoglobin 10.7, other labs were unremarkable CBC, BMP, LFT, INR. Troponin x 2 are negative. Urine analysis is positive for nitrite. TSH is normal at 0.9 Influenza A and type B, RSV, SARS (coronavirus) are undetected Chest x-ray: No acute process EKG showing sinus rhythm at [address]-T changes D-dimer elevated at 0.8 CTA of the chest is negative for PE but showing scattered sclerotic foci suspicious for malignancy and metastatic disease associated with mild cardiomegaly and pulmonary vascular congestion CT of the brain is negative for acute process. In emergency room patient received antibiotics cefepime and Zithromax 11/13/2024 Patient seen and evaluated in follow-up on the selective care unit. She is currently on BiPAP 14/5 and 40% FiO2. Alternating with 6 L high flow nasal cannula when awake and alert. Patient's mentation continues to wax and wane -- she remains on DuoNeb and elations, Pulmicort. Remains on oral diuretics. Remains on ceftriaxone. Anticoagulated with Xarelto. Urine culture revealed no growth. Glucose 222. Alternating BiPAP with 6 L high flow nasal cannula Titrate down the FiO2 as tolerated Continue bronchodilators Objective - Vital Signs Vital signs: Vital Signs Temp 98.1 F 11/13/24 08:35 Pulse 70 11/13/24 11:44 Resp 18 11/13/24 08:35 BP 102/60 11/13/24 08:35 Pulse Ox 94 L 11/13/24 08:35 FiO2 40 11/13/24 11:43 Intake & Output 11/12/24 11/13/24 11/13/24 18:59 06:59 18:59 Intake Total 586 240 Output Total 300 200 Balance 286 40 Weight 126.5 kg Intake: Oral 586 240 Output: Urine 300 200 Other: Voiding Method External Catheter External Catheter External Catheter - Exam GENERAL: The patient is alert HEENT: Pupils are round and equally reacting to light. EOMI. No scleral icterus. No conjunctival pallor. Normocephalic, atraumatic. No pharyngeal erythema. No thyromegaly. CARDIOVASCULAR: S1 and S2 present. No murmurs, rubs, or gallops. PULMONARY: Diminished breath sounds at the bases bilaterally, no wheezing or crackles. ABDOMEN: Soft, nontender, nondistended, normoactive bowel sounds. No palpable organomegaly. MUSCULOSKELETAL: No joint swelling or deformity. EXTREMITIES: No cyanosis, clubbing, or pedal edema. NEUROLOGICAL: Moving all extremities SKIN: No rashes. - Labs CBC & Chem 7: 11/13/24 12:00 11/13/24 12:00 Labs: Abnormal Lab Results - Last 24 Hours (Table) 11/12/24 11/12/24 11/13/24 Range/Units 17:06 20:13 00:20 POC Glucose (mg/dL) 229 H 170 H 168 H (70-110) mg/dL 11/13/24 11/13/24 Range/Units 05:52 11:27 POC Glucose (mg/dL) 222 H 150 H (70-110) mg/dL Assessment and Plan Assessment: Acute metabolic encephalopathy Acute on chronic hypoxic/hypercapnic respiratory failure, Acute exacerbation of chronic obstructive pulmonary disease. Suspect CHF with diastolic heart failure, proBNP level is mildly elevated History of chronic tobacco dependence. schizophrenia. Diabetes mellitus, type II. History of seizures. Chronic lower extremity edema. Repeated Dopplers have been negative for DVT and the patient has been maintained on Xarelto Hypertension. Hyperlipidemia. intermediate resident with an impaired based on performance and functional status Previous history of COVID-19 infection, 2021 in 2022, x 2 Monitor vital signs Monitor CBC Monitor CMP Continue telemetry monitoring Continue oxygen supplementation Continue BiPAP Continue breathing treatments Continue aspirin, Lipitor Continue IV Rocephin Monitor blood sugar levels, continue sliding scale insulin Pulmonology following
[2024-11-13 20:41] LABS: Glucose,Whole Blood 134 mg/dL (70-110)
--- NOTE | 2024-11-13 22:44 | P.PN ---
Subjective Progress Note Date: 11/13/24 Principal diagnosis: Reason for follow-up is bilateral lower extremity swelling question of cellulitis Patient is a 64-year-old female with a past medical history signif icant for diabetes mellitus hypertension hyperlipidemia COPD patient has been brought to the hospital for evaluation of mental status changes, patient noted to be hypoxic requiring BiPAP also have lower extremity swelling for evaluation there were concern for possible cellulitis prompted this consultation. On today's evaluation that is 11/13/2024, patient did not have any fever today the patient is currently heavy lethargic on a BiPAP hemodynamically stable no vomiting diarrhea and the changes reported by the nursing staff. Patient white count 7.4, creatinine 0.50 urine has been negative Objective - Vital Signs Vital signs: Vital Signs Temp 98.1 F 11/13/24 12:00 Pulse 74 11/13/24 12:00 Resp 18 11/13/24 12:00 BP 128/63 11/13/24 12:00 Pulse Ox 96 11/13/24 12:00 FiO2 40 11/13/24 12:00 Intake & Output 11/12/24 11/13/24 11/13/24 18:59 06:59 18:59 Intake Total 586 240 150 Output Total 300 200 Balance 286 40 150 Weight 126.5 kg Intake: Intake, IV Titration 150 Amount Valproate Sodium 500 mg 100 In Sodium Chloride 0.9% 100 ml @ 100 mls/hr IVPB DAILY [facility] Rx#:[id number] cefTRIAXone 1 gm In 50 Sodium Chloride 0.9% 50 ml @ 100 mls/hr IVPB Q24HR [facility] Rx#:[id number] Oral 586 240 Output: Urine 300 200 Other: Voiding Method External Catheter External Catheter External Catheter - Exam GENERAL DESCRIPTION: Middle-age female lying in bed in no distress RESPIRATORY SYSTEM: Unlabored breathing , decreased breath sounds at bases HEART: S1 S2 regular rate and rhythm , ABDOMEN: Soft , no tenderness EXTREMITIES: Legs are currently wrapped in Felix wrap - Labs CBC & Chem 7: 11/13/24 12:00 11/13/24 12:00 Labs: Abnormal Lab Results - Last 24 Hours (Table) 11/12/24 11/12/24 11/13/24 Range/Units 17:06 20:13 00:20 RBC (3.80-5.40) m/uL Hgb (11.4-16.0) gm/dL Hct (34.0-46.0) % RDW (11.5-15.5) % Chloride (98-107) mmol/L Carbon Dioxide (22-30) mmol/L BUN (7-17) mg/dL Creatinine (0.52-1.04) mg/dL Glucose (74-99) mg/dL POC Glucose (mg/dL) 229 H 170 H 168 H (70-110) mg/dL 11/13/24 11/13/24 11/13/24 Range/Units 05:52 11:27 12:00 RBC 3.45 L (3.80-5.40) m/uL Hgb 10.0 L (11.4-16.0) gm/dL Hct 31.8 L (34.0-46.0) % RDW 16.7 H (11.5-15.5) % Chloride (98-107) mmol/L Carbon Dioxide (22-30) mmol/L BUN (7-17) mg/dL Creatinine (0.52-1.04) mg/dL Glucose (74-99) mg/dL POC Glucose (mg/dL) 222 H 150 H (70-110) mg/dL 11/13/24 Range/Units 12:00 RBC (3.80-5.40) m/uL Hgb (11.4-16.0) gm/dL Hct (34.0-46.0) % RDW (11.5-15.5) % Chloride 97 L (98-107) mmol/L Carbon Dioxide 38 H (22-30) mmol/L BUN 23 H (7-17) mg/dL Creatinine 0.50 L (0.52-1.04) mg/dL Glucose 138 H (74-99) mg/dL POC Glucose (mg/dL) (70-110) mg/dL Assessment and Plan (1) Swelling of both lower extremities Current Visit: Yes Status: Acute Code(s): M79.89 - OTHER SPECIFIED SOFT TISSUE DISORDERS SNOMED Code(s): 331529689 (2) Bilateral lower leg cellulitis Current Visit: Yes Status: Acute Code(s): L03.116 - CELLULITIS OF LEFT LOWER LIMB; L03.115 - CELLULITIS OF RIGHT LOWER LIMB SNOMED Code(s): 121747867 Plan: 1patient with presentation to hospital with mental status changes hypoxemia increasing shortness of breath in this patient who do have features of fluid overload with evidence of diffuse swelling to lower extremity that was negative for DVT mild erythema could be related to the venous stasis cellulitis less likely but not excluded patient also have a negative UA hard to get any history from this patient regarding urinary symptoms clinical suspicious low for UTI 2patient to continue with Felix wrap to get swelling lower extremity down and short course of Rocephin Dictation was produced using [employer]_ dictation software. please excuse any grammatical, word or spelling errors. Time with Patient: Less than 30
[2024-11-14 00:16] LABS: Glucose,Whole Blood 157 mg/dL (70-110)
[2024-11-14 06:00] LABS: Glucose,Whole Blood 145 mg/dL (70-110)
[2024-11-14 06:53] LABS: Anisocytosis Slight; Basophils % (A) 0 %; Eosinophils % (A) 0 %; HCT 30.6 % (34.0-46.0); HGB 9.8 gm/dL (11.4-16.0); Hypochromasia Marked; Lymphocytes # (A) 1.2 k/uL (1.0-4.8); Lymphocytes % (A) 20 %; MCH 29.1 pg (25.0-35.0); MCHC 31.9 g/dL (31.0-37.0); MCV 91.3 fL (80.0-100.0); Mean Platelet Volume 7.8; Monocytes # (A) 0.6 k/uL (0-1.0); Monocytes % (A) 10 %; Neutrophils % (A) 67 %; Platelet Count 192 k/uL (150-450); RBC 3.36 m/uL (3.80-5.40); RDW 16.6 % (11.5-15.5)
[2024-11-14 07:14] LABS: African American GFR (CKD) >90 (>60 ml/min/1.73 sqM); Anion Gap 0 mmol/L; Blood Urea Nitrogen 17 mg/dL (7-17); Calcium 8.9 mg/dL (8.4-10.2); Carbon Dioxide 38 mmol/L (22-30); Chloride 99 mmol/L (98-107); Glucose 125 mg/dL (74-99); Non-African American GFR(CKD) >90 (>60 ml/min/1.73 sqM); Sodium 137 mmol/L (137-145)
--- NOTE | 2024-11-14 11:05 | P.PN ---
Subjective Progress Note Date: 11/14/24 This is a 64-year-old female patient is being seen in consultation as the patient presented to the hospital with altered mentation with some ongoing hypoxemia. The patient is known to have COPD with chronic hypoxic respiratory failure. She is morbidly obese with a BMI of 47.0. She is oxygen dependent. She is also known to have diabetes mellitus, hyperlipidemia and schizophrenia. She is a long-term resident at [facility]. At the time of her admission, the patient was placed on a nonrebreather facemask and subsequently the patient was transition to BiPAP. EKG showed a normal sinus rhythm. Chest x-ray showed smaller lung volumes and generalized hazy appearance atelectasis and component of pulm vessel congestion/edema. CT of the chest showed no evidence of any pulmonary embolism. There was scattered sclerotic foci throughout the osseous structures correlated with possible malignancy. Mild cardiomegaly. Mild pulm vessel congestion. There was motion artifact. CAT scan of the brain was negative. The white cell count was at 7.5 with a hemoglobin 10.8 and a D-dimer of 0.82. Sodium is at 140, potassium is 3.9, serum bicarb is at 40 with a BUN of 17 and a creatinine of 0.6. proBNP level was 915. Troponins were negative. Viral 4 Plex was negative. The blood gas was also obtained that showed a chronic hypercapnic respiratory failure with a pH of 7.42 with a pCO2 of 67 and pO2 of 75. UA showed +1 ketones, +1 protein, no infections. The patient is currently on DuoNeb nebulized treatments [id number]. She was started on IV Rocephin. She was started on Lasix 40 mg IV every 12 hours. She is also on Levemir insulin 10 units daily and sliding scale insulin coverage. She has been maintained on long-term anticoagulation with Xarelto.Doppler of the lower extremities were negative for DVT. D-dimer is at 0.82. The patient is seen today November 08, 2024 in follow-up on the selective care unit. She is currently sitting up in bed. Awake and alert in no acute di stress. A safety technician is at the bedside. She is maintaining good O2 saturations in the mid 90s on 5 L high flow nasal cannula. She has been afebrile. Hemodynamically stable. White count 8.1. Hemoglobin 10.0. Platelets 244. Sodium 141. Potassium 3.5. Bicarb 42. BUN 21. Creatinine 0.74. Glucose 142. She remains on DuoNeb inhalations, Pulmicort inhalations. Antibiotics in the form of ceftriaxone. She remains on oral diuretics. Anticoagulated with Xarelto. The patient is seen today November 09, 2024 in follow-up on the selective care unit. She is currently resting in bed. Somewhat drowsy but arousable. Currently on BiPAP 14/5 and 55% FiO2. Arterial blood gases were drawn and show a PaO2 of 87, pCO2 of 73 and a pH of 7.39. White count 6.3. Hemoglobin 10.3. Platelets 220. Sodium 144. Potassium 3.8. Bicarb 41. BUN 30. Creatinine 0.66. Glucose 107. She remains on ceftriaxone. Continued on DuoNeb inhalations. Remains on oral diuretics. Anticoagulated with Xarelto. The patient is seen today November 10, 2024 in follow-up on the selective care unit. She is more awake and alert today compared to yesterday. No worsening shortness of breath, cough or congestion. She is maintaining good O2 saturations in the 90s on 6 L/min per nasal cannula. Alternating with BiPAP 15/5 and 40% FiO2. She is continued on DuoNeb inhalations, Pulmicort inhalations. Remains on oral diuretics. Remains on ceftriaxone. Anticoagulated with Xarelto. Urine culture revealed no growth. Glucose 120. The patient is seen today November 11, 2024 in follow-up on the selective care unit. She is resting in bed. Awake and alert in no acute distress. Denies any worsening shortness of breath, cough or congestion. She is currently on 6 L high flow nasal cannula. She is alternating with BiPAP 14/5 and 40% FiO2. She remains on DuoNeb and elations, Pulmicort inhalations. Xarelto for anticoagulation. Remains on oral diuretics. Urine culture revealed no growth. Currently on ceftriaxone. White count 7.1. Hemoglobin 11.1. Platelets 199. Sodium 141. Potassium 3.5. Bicarb 39. BUN 16. Creatinine 0.57. Glucose 120. The patient is seen today November 12, 2024 in follow-up on the selective care unit. She is currently sitting up in bed. Awake and alert in no acute distress. Maintaining good O2 saturations in the 90s on 6 L/min per high flow nasal cannula. She is afebrile. Hemodynamically stable. White count 6.5. Hemoglobin 10.3. Platelets 189. Sodium 141. Potassium 3.4. Bicarb 38. BUN 17. Creatinine 0.60. Glucose 131. She is continued on DuoNeb inhalations, Pulmicort inhalations, anticoagulated with Xarelto. She remains on antibiotics in the form of ceftriaxone. Continued on oral diuretics. The patient is seen today November 13, 2024 in follow-up on the selective care unit. She is currently on BiPAP. Arousable. Her mentation continues to wax and wane. She did wear BiPAP last night 14/5 and 40% FiO2. Alternating with 6 L high flow nasal cannula when awake and alert. She remains on DuoNeb and elations, Pulmicort. Remains on oral diuretics. Remains on ceftriaxone. Anticoagulated with Xarelto. Urine culture revealed no growth. Glucose 222. The patient is seen today November 14, 2024 in follow-up on the selective care unit. She is currently awake and alert. Maintaining O2 saturations in the 90s on absence earlier this morning. No worsening shortness of breath, cough or congestion. Picking her medications today. White count 6.0. Hemoglobin 9.8. Platelets 192. Sodium 137. Potassium 4.0. Bicarb 38. BUN 17. Creatinine 0.46. Glucose 125. She is continued on DuoNeb and elations, Pulmicort inhalations. Anticoagulated with Xarelto. Remains on oral diuretics. Completed Rocephin. Objective - Vital Signs Vital signs: Vital Signs Temp 97.9 F 11/14/24 08:25 Pulse 84 11/14/24 08:27 Resp 24 11/14/24 08:25 BP 116/76 11/14/24 08:25 Pulse Ox 93 L 11/14/24 08:25 FiO2 40 11/14/24 08:25 Intake & Output 11/13/24 11/14/24 11/14/24 18:59 06:59 18:59 Intake Total 150 Output Total 400 Balance 150 -400 Weight 127 kg Intake: Intake, IV Titration 150 Amount Valproate Sodium 500 mg 100 In Sodium Chloride 0.9% 100 ml @ 100 mls/hr IVPB DAILY [facility] Rx#:[id number] cefTRIAXone 1 gm In 50 Sodium Chloride 0.9% 50 ml @ 100 mls/hr IVPB Q24HR [facility] Rx#:[id number] Output: Urine 400 Other: Voiding Method External Catheter External Catheter External Catheter - Exam GENERAL EXAM: Awake, alert 64-year-old female, resting in bed, on 6 L high flow nasal cannula. HEAD: Normocephalic. EYES: Normal reaction of pupils, equal size. NOSE: Clear with pink turbinates. THROAT: No erythema or exudates. NECK: No masses, no JVD. CHEST: No chest wall deformity. LUNGS: Equal air entry with bilateral scattered rhonchi. CVS: S1 and S2 normal with an audible murmur, regular rhythm. ABDOMEN: No hepatosplenomegaly, normal bowel sounds, no guarding or rigidity. SPINE: No scoliosis or deformity SKIN: No rashes CENTRAL NERVOUS SYSTEM: No focal deficits, tone is normal in all 4 extremities. EXTREMITIES: Felix wraps on the bilateral lower extremities. There is 1-2+ chronic peripheral edema. Peripheral pulses are intact. - Labs CBC & Chem 7: 11/14/24 06:20 11/14/24 06:20 Labs: Abnormal Lab Results - Last 24 Hours (Table) 11/13/24 11/13/24 11/13/24 Range/Units 11:27 12:00 12:00 RBC 3.45 L (3.80-5.40) m/uL Hgb 10.0 L (11.4-16.0) gm/dL Hct 31.8 L (34.0-46.0) % RDW 16.7 H (11.5-15.5) % Chloride 97 L (98-107) mmol/L Carbon Dioxide 38 H (22-30) mmol/L BUN 23 H (7-17) mg/dL Creatinine 0.50 L (0.52-1.04) mg/dL Glucose 138 H (74-99) mg/dL POC Glucose (mg/dL) 150 H (70-110) mg/dL 11/13/24 11/13/24 11/14/24 Range/Units 16:33 20:39 00:13 RBC (3.80-5.40) m/uL Hgb (11.4-16.0) gm/dL Hct (34.0-46.0) % RDW (11.5-15.5) % Chloride (98-107) mmol/L Carbon Dioxide (22-30) mmol/L BUN (7-17) mg/dL Creatinine (0.52-1.04) mg/dL Glucose (74-99) mg/dL POC Glucose (mg/dL) 145 H 134 H 157 H (70-110) mg/dL 11/14/24 11/14/24 11/14/24 Range/Units 05:51 06:20 06:20 RBC 3.36 L (3.80-5.40) m/uL Hgb 9.8 L (11.4-16.0) gm/dL Hct 30.6 L (34.0-46.0) % RDW 16.6 H (11.5-15.5) % Chloride (98-107) mmol/L Carbon Dioxide 38 H (22-30) mmol/L BUN (7-17) mg/dL Creatinine 0.46 L (0.52-1.04) mg/dL Glucose 125 H (74-99) mg/dL POC Glucose (mg/dL) 145 H (70-110) mg/dL Assessment and Plan Assessment: Altered mental status under investigation. Rule out metabolic factors and the blood gases showing chronic compensated respiratory acidosis. Patient was hypoxic at the time of admission could be attributed to a component of COPD and mild CHF with diastolic failure.CAT scan of the chest was reviewed and there is no evidence of any pulmonary embolism. There is motion artifact and there is COPD and mild pulm venous congestion. The patient was started on bronchodil ators and Lasix. Completed Rocephin. Urine culture revealed no growth. She is awake and alert today without pulmonary complaints Acute on chronic hypoxic/hypercapnic respiratory failure, alternating 6 L high flow nasal cannula with BiPAP 14/5 and 40% FiO2 Acute exacerbation of chronic obstructive pulmonary disease. Suspect CHF with diastolic heart failure, proBNP level is mildly elevated History of chronic tobacco dependence. Sschizophrenia. Diabetes mellitus, type II. History of seizures. Chronic lower extremity edema. Repeated Dopplers have been negative for DVT and the patient has been maintained on Xarelto Hypertension. Hyperlipidemia. [facility] resident with an impaired based on performance and functional status Previous history of COVID-19 infection, 2021 in 2022, x 2 Plan: The patient was seen and evaluated Labs and medications reviewed Mentation continues to wax and wane Today she is awake and alert and cooperative Titrate down the FiO2 as tolerated Continue bronchodilators Remains on oral diuretics Anticoagulated with Xarelto Plan is to return to [facility] This patient was seen independently by the pulmonary nurse practitioner addressing pulmonary issues I have personally seen and examined the patient, performed the documentation and the assessment and plan as written. Number of minutes spent on the visit: 24 Dictation was produced using [employer] dictation software. Please excuse any grammatical, word or spelling errors.
[2024-11-14 11:11] LABS: Glucose,Whole Blood 132 mg/dL (70-110)
--- NOTE | 2024-11-14 14:38 | P.PN ---
Subjective Progress Note Date: 11/14/24 64 years old male with past medical history of multiple medical problems as below. Patient currently on BiPAP and confused and drowsy and cannot provide information On admission patient was saturating 391% on 3 L. Later on to get worse saturating dropped to 84% on 4 L and she was tachypneic, currently she is placed on BiPAP. As per documents patient was transferred from [facility] for altered mental sta tus, she woke up but she was lethargic. #1 suspecting she has pneumonia and she is on 3 L oxygen Patient is afebrile vitals are stable Labs showing mild anemia with hemoglobin 10.7, other labs were unremarkable CBC, BMP, LFT, INR. Troponin x 2 are negative. Urine analysis is positive for nitrite. TSH is normal at 0.9 Influenza A and type B, RSV, SARS (coronavirus) are undetected Chest x-ray: No acute process EKG showing sinus rhythm at [address]-T changes D-dimer elevated at 0.8 CTA of the chest is negative for PE but showing scattered sclerotic foci suspicious for malignancy and metastatic disease associated with mild cardiomegaly and pulmonary vascular congestion CT of the brain is negative for acute process. In emergency room patient received antibiotics cefepime and Zithromax 11/13/2024 Patient seen and evaluated in follow-up on the selective care unit. She is currently on BiPAP 14/5 and 40% FiO2. Alternating with 6 L high flow nasal cannula when awake and alert. Patient's mentation continues to wax and wane -- she remains on DuoNeb and elations, Pulmicort. Remains on oral diuretics. Remains on ceftriaxone. Anticoagulated with Xarelto. Urine culture revealed no growth. Glucose 222. Alternating BiPAP with 6 L high flow nasal cannula Titrate down the FiO2 as tolerated Continue bronchodilators 11/14/2024 Patient is seen and evaluated in follow-up on the selective care unit. She is currently awake and alert. Maintaining O2 saturations in the 90s on absence earlier this morning. No worsening shortness of breath, cough or congestion. -- White count 6.0. Hemoglobin 9.8. Platelets 192. Sodium 137. Potassium 4.0. Bicarb 38. BUN 17. Creatinine 0.46. Glucose 125. - She is continued on DuoNeb and elations, Pulmicort inhalations. Anticoagulated with Xarelto. Remains on oral diuretics. Completed Rocephin. Mentation continues to wax and wane Titrate down the FiO2 as tolerated Continue bronchodilators; oral diuretics; Anticoagulated with Xarelto Objective - Vital Signs Vital signs: Vital Signs Temp 97.3 F L 11/14/24 04:00 Pulse 84 11/14/24 08:27 Resp 18 11/14/24 04:00 BP 112/74 11/14/24 04:00 Pulse Ox 96 11/14/24 04:00 FiO2 40 11/14/24 08:18 Intake & Output 11/13/24 11/14/24 11/14/24 18:59 06:59 18:59 Intake Total 150 Output Total 400 Balance 150 -400 Weight 127 kg Intake: Intake, IV Titration 150 Amount Valproate Sodium 500 mg 100 In Sodium Chloride 0.9% 100 ml @ 100 mls/hr IVPB DAILY [facility] Rx#:[id number] cefTRIAXone 1 gm In 50 Sodium Chloride 0.9% 50 ml @ 100 mls/hr IVPB Q24HR [facility] Rx#:[id number] Output: Urine 400 Other: Voiding Method External Catheter External Catheter - Exam GENERAL: The patient is alert HEENT: Pupils are round and equally reacting to light. EOMI. No scleral icterus. No conjunctival pallor. Normocephalic, atraumatic. No pharyngeal erythema. No thyromegaly. CARDIOVASCULAR: S1 and S2 present. No murmurs, rubs, or gallops. PULMONARY: Diminished breath sounds at the bases bilaterally, no wheezing or c rackles. ABDOMEN: Soft, nontender, nondistended, normoactive bowel sounds. No palpable organomegaly. MUSCULOSKELETAL: No joint swelling or deformity. EXTREMITIES: No cyanosis, clubbing, or pedal edema. NEUROLOGICAL: Moving all extremities SKIN: No rashes. - Labs CBC & Chem 7: 11/14/24 06:20 11/14/24 06:20 Labs: Abnormal Lab Results - Last 24 Hours (Table) 11/13/24 11/13/24 11/13/24 Range/Units 11:27 12:00 12:00 RBC 3.45 L (3.80-5.40) m/uL Hgb 10.0 L (11.4-16.0) gm/dL Hct 31.8 L (34.0-46.0) % RDW 16.7 H (11.5-15.5) % Chloride 97 L (98-107) mmol/L Carbon Dioxide 38 H (22-30) mmol/L BUN 23 H (7-17) mg/dL Creatinine 0.50 L (0.52-1.04) mg/dL Glucose 138 H (74-99) mg/dL POC Glucose (mg/dL) 150 H (70-110) mg/dL 11/13/24 11/13/24 11/14/24 Range/Units 16:33 20:39 00:13 RBC (3.80-5.40) m/uL Hgb (11.4-16.0) gm/dL Hct (34.0-46.0) % RDW (11.5-15.5) % Chloride (98-107) mmol/L Carbon Dioxide (22-30) mmol/L BUN (7-17) mg/dL Creatinine (0.52-1.04) mg/dL Glucose (74-99) mg/dL POC Glucose (mg/dL) 145 H 134 H 157 H (70-110) mg/dL 11/14/24 11/14/24 11/14/24 Range/Units 05:51 06:20 06:20 RBC 3.36 L (3.80-5.40) m/uL Hgb 9.8 L (11.4-16.0) gm/dL Hct 30.6 L (34.0-46.0) % RDW 16.6 H (11.5-15.5) % Chloride (98-107) mmol/L Carbon Dioxide 38 H (22-30) mmol/L BUN (7-17) mg/dL Creatinine 0.46 L (0.52-1.04) mg/dL Glucose 125 H (74-99) mg/dL POC Glucose (mg/dL) 145 H (70-110) mg/dL Assessment and Plan Assessment: Acute metabolic encephalopathy Acute on chronic hypoxic/hypercapnic respiratory failure, Acute exacerbation of chronic obstructive pulmonary disease. Suspect CHF with diastolic heart failure, proBNP level is mildly elevated History of chronic tobacco dependence. schizophrenia. Diabetes mellitus, type II. History of seizures. Chronic lower extremity edema. Repeated Dopplers have been negative for DVT and the patient has been maintained on Xarelto Hypertension. Hyperlipidemia. [facility] resident with an impaired based on performance and functional status Previous history of COVID-19 infection, 2021 in 2022, x 2 Monitor vital signs Monitor CBC Monitor CMP Continue telemetry monitoring Continue oxygen supplementation Continue BiPAP Continue breathing treatments Continue aspirin, Lipitor Continue IV Rocephin Monitor blood sugar levels, continue sliding scale insulin Pulmonology following
--- NOTE | 2024-11-14 14:58 | P.PN ---
Subjective Progress Note Date: 11/14/24 Principal diagnosis: Reason for follow-up is bilateral lower extremity swelling question of cellulitis Patient is a 64-year-old female with a past medical history signif icant for diabetes mellitus hypertension hyperlipidemia COPD patient has been brought to the hospital for evaluation of mental status changes, patient noted to be hypoxic requiring BiPAP also have lower extremity swelling for evaluation there were concern for possible cellulitis prompted this consultation. On today's evaluation that is 11/14/2024, Patient is afebrile patient is currently on nasal cannula oxygen in situ breathing slightly comfortably no vomiting diarrhea change reported by the staff at the bedside. The patient white count 6.0, creatinine 0.46 urine has been negative Objective - Vital Signs Vital signs: Vital Signs Temp 97.6 F 11/14/24 12:45 Pulse 75 11/14/24 12:45 Resp 19 11/14/24 12:45 BP 98/65 11/14/24 12:45 Pulse Ox 95 11/14/24 12:45 FiO2 40 11/14/24 08:25 Intake & Output 11/13/24 11/14/24 11/14/24 18:59 06:59 18:59 Intake Total 150 Output Total 400 Balance 150 -400 Weight 127 kg Intake: Intake, IV Titration 150 Amount Valproate Sodium 500 mg 100 In Sodium Chloride 0.9% 100 ml @ 100 mls/hr IVPB DAILY [facility] Rx#:[id number] cefTRIAXone 1 gm In 50 Sodium Chloride 0.9% 50 ml @ 100 mls/hr IVPB Q24HR [facility] Rx#:[id number] Output: Urine 400 Other: Voiding Method External Catheter External Catheter External Catheter - Exam GENERAL DESCRIPTION: Middle-age female lying in bed in no distress RESPIRATORY SYSTEM: Unlabored breathing , decreased breath sounds at bases HEART: S1 S2 regular rate and rhythm , ABDOMEN: Soft , no tenderness EXTREMITIES: Legs are currently wrapped in Felix wrap - Labs CBC & Chem 7: 11/14/24 06:20 11/14/24 06:20 Labs: Abnormal Lab Results - Last 24 Hours (Table) 11/13/24 11/13/24 11/13/24 Range/Units 12:00 16:33 20:39 RBC (3.80-5.40) m/uL Hgb (11.4-16.0) gm/dL Hct (34.0-46.0) % RDW (11.5-15.5) % Chloride 97 L (98-107) mmol/L Carbon Dioxide 38 H (22-30) mmol/L BUN 23 H (7-17) mg/dL Creatinine 0.50 L (0.52-1.04) mg/dL Glucose 138 H (74-99) mg/dL POC Glucose (mg/dL) 145 H 134 H (70-110) mg/dL 11/14/24 11/14/24 11/14/24 Range/Units 00:13 05:51 06:20 RBC 3.36 L (3.80-5.40) m/uL Hgb 9.8 L (11.4-16.0) gm/dL Hct 30.6 L (34.0-46.0) % RDW 16.6 H (11.5-15.5) % Chloride (98-107) mmol/L Carbon Dioxide (22-30) mmol/L BUN (7-17) mg/dL Creatinine (0.52-1.04) mg/dL Glucose (74-99) mg/dL POC Glucose (mg/dL) 157 H 145 H (70-110) mg/dL 11/14/24 11/14/24 Range/Units 06:20 11:10 RBC (3.80-5.40) m/uL Hgb (11.4-16.0) gm/dL Hct (34.0-46.0) % RDW (11.5-15.5) % Chloride (98-107) mmol/L Carbon Dioxide 38 H (22-30) mmol/L BUN (7-17) mg/dL Creatinine 0.46 L (0.52-1.04) mg/dL Glucose 125 H (74-99) mg/dL POC Glucose (mg/dL) 132 H (70-110) mg/dL Assessment and Plan (1) Swelling of both lower extremities Current Visit: Yes Status: Acute Code(s): M79.89 - OTHER SPECIFIED SOFT TISSUE DISORDERS SNOMED Code(s): 797625146 (2) Bilateral lower leg cellulitis Current Visit: Yes Status: Acute Code(s): L03.116 - CELLULITIS OF LEFT LOWER LIMB; L03.115 - CELLULITIS OF RIGHT LOWER LIMB SNOMED Code(s): 270647329 Plan: 1patient with presentation to hospital with mental status changes hypoxemia increasing shortness of breath in this patient who do have features of fluid overload with evidence of diffuse swelling to lower extremity that was negative for DVT mild erythema could be related to the venous stasis cellulitis less likely but not excluded patient also have a negative UA hard to get any history from this patient regarding urinary symptoms clinical suspicious low for UTI 2patient will be continued with Felix wrap to bilateral lower extremity to keep the swelling down has completed the course of Rocephin this morning and monitor the patient closely off antibiotic Dictation was produced using [employer] dictation software. please excuse any grammatical, word or spelling errors. Time with Patient: Less than 30
[2024-11-14 16:08] LABS: Glucose,Whole Blood 206 mg/dL (70-110)
[2024-11-14 20:31] LABS: Glucose,Whole Blood 166 mg/dL (70-110)
[2024-11-15 00:08] LABS: Glucose,Whole Blood 183 mg/dL (70-110)
[2024-11-15 06:25] LABS: Glucose,Whole Blood 143 mg/dL (70-110)
[2024-11-15 06:46] LABS: Anisocytosis Slight; Basophils % (A) 0 %; Eosinophils % (A) 0 %; HGB 9.7 gm/dL (11.4-16.0); Hypochromasia Moderate; Lymphocytes # (A) 1.4 k/uL (1.0-4.8); Lymphocytes % (A) 23 %; MCH 28.6 pg (25.0-35.0); MCHC 31.4 g/dL (31.0-37.0); Mean Platelet Volume 8.2; Monocytes # (A) 0.6 k/uL (0-1.0); Monocytes % (A) 11 %; Neutrophils # (A) 3.6 k/uL (1.3-7.7); Neutrophils % (A) 63 %; Platelet Count 203 k/uL (150-450); Poikilocytosis Slight; RBC 3.41 m/uL (3.80-5.40); RDW 16.8 % (11.5-15.5); WBC 5.8 k/uL (3.8-10.6)
[2024-11-15 07:31] LABS: African American GFR (CKD) >90 (>60 ml/min/1.73 sqM); Anion Gap 4 mmol/L; Blood Urea Nitrogen 15 mg/dL (7-17); Calcium 8.8 mg/dL (8.4-10.2); Carbon Dioxide 37 mmol/L (22-30); Chloride 99 mmol/L (98-107); Glucose 138 mg/dL (74-99); Non-African American GFR(CKD) >90 (>60 ml/min/1.73 sqM); Sodium 140 mmol/L (137-145)
[2024-11-15 11:41] LABS: Glucose,Whole Blood 132 mg/dL (70-110)
--- NOTE | 2024-11-15 12:28 | P.PN ---
Subjective Progress Note Date: 11/15/24 Principal diagnosis: Reason for follow-up is bilateral lower extremity swelling question of cellulitis Patient is a 64-year-old female with a past medical history signif icant for diabetes mellitus hypertension hyperlipidemia COPD patient has been brought to the hospital for evaluation of mental status changes, patient noted to be hypoxic requiring BiPAP also have lower extremity swelling for evaluation there were concern for possible cellulitis prompted this consultation. On today's evaluation that is 11/15/2023, patient has been afebrile, patient is currently on a 6 L nasal-nasal cannula oxygen patient is lethargic though arousable and this morning to her name denies any chest pain or worsening cough no vomiting or diarrhea has been reported. Patient did have white count 5.8, creatinine 0.60 Objective - Vital Signs Vital signs: Vital Signs Temp 99.1 F 11/15/24 08:27 Pulse 77 11/15/24 11:27 Resp 25 H 11/15/24 11:27 BP 116/73 11/15/24 11:27 Pulse Ox 94 L 11/15/24 11:27 FiO2 40 11/15/24 08:27 Intake & Output 11/14/24 11/15/24 11/15/24 18:59 06:59 18:59 Intake Total 150 10 10 Output Total 1000 Balance 150 -990 10 Weight 128 kg Intake: IV 10 10 0.9 10 Invasive Line 3 10 Intake, IV Titration 150 Amount Valproate Sodium 500 mg 100 In Sodium Chloride 0.9% 100 ml @ 100 mls/hr IVPB DAILY [facility] Rx#:[id number] cefTRIAXone 1 gm In 50 Sodium Chloride 0.9% 50 ml @ 100 mls/hr IVPB Q24HR [facility] Rx#:[id number] Output: Urine 1000 Other: Voiding Method External Catheter External Catheter # Voids 2 - Exam GENERAL DESCRIPTION: Middle-age female lying in bed in no distress RESPIRATORY SYSTEM: Unlabored breathing , decreased breath sounds at bases HEART: S1 S2 regular rate and rhythm , ABDOMEN: Soft , no tenderness EXTREMITIES: Legs are currently wrapped in Felix wrap - Labs CBC & Chem 7: 11/15/24 05:43 11/15/24 05:43 Labs: Abnormal Lab Results - Last 24 Hours (Table) 11/14/24 11/14/24 11/15/24 Range/Units 16:07 20:29 00:07 RBC (3.80-5.40) m/uL Hgb (11.4-16.0) gm/dL Hct (34.0-46.0) % RDW (11.5-15.5) % Carbon Dioxide (22-30) mmol/L Glucose (74-99) mg/dL POC Glucose (mg/dL) 206 H 166 H 183 H (70-110) mg/dL 11/15/24 11/15/24 11/15/24 Range/Units 05:43 05:43 06:24 RBC 3.41 L (3.80-5.40) m/uL Hgb 9.7 L (11.4-16.0) gm/dL Hct 31.0 L (34.0-46.0) % RDW 16.8 H (11.5-15.5) % Carbon Dioxide 37 H (22-30) mmol/L Glucose 138 H (74-99) mg/dL POC Glucose (mg/dL) 143 H (70-110) mg/dL 11/15/24 Range/Units 11:40 RBC (3.80-5.40) m/uL Hgb (11.4-16.0) gm/dL Hct (34.0-46.0) % RDW (11.5-15.5) % Carbon Dioxide (22-30) mmol/L Glucose (74-99) mg/dL POC Glucose (mg/dL) 132 H (70-110) mg/dL Assessment and Plan (1) Swelling of both lower extremities Current Visit: Yes Status: Acute Code(s): M79.89 - OTHER SPECIFIED SOFT TISSUE DISORDERS SNOMED Code(s): 586877038 (2) Bilateral lower leg cellulitis Current Visit: Yes Status: Acute Code(s): L03.116 - CELLULITIS OF LEFT LOWER LIMB; L03.115 - CELLULITIS OF RIGHT LOWER LIMB SNOMED Code(s): 629713268 Plan: 1patient with presentation to hospital with mental status changes hypoxemia increasing shortness of breath in this patient who do have features of fluid overload with evidence of diffuse swelling to lower extremity that was negative for DVT mild erythema could be related to the venous stasis cellulitis less likely but not excluded patient also have a negative UA hard to get any history from this patient regarding urinary symptoms clinical suspicious low for UTI 2patient has been afebrile white count has been normal we will continue with the Felix wrap to the leg to keep the swelling down and monitor the patient cl osely off antibiotic Dictation was produced using [employer] dictation software. please excuse any gramm atical, word or spelling errors. Time with Patient: Less than 30
[2024-11-15 14:21] VITALS: BMI 44.1
--- NOTE | 2024-11-15 15:26 | P.PN ---
Subjective Progress Note Date: 11/15/24 This is a 64-year-old female patient is being seen in consultation as the patient presented to the hospital with altered mentation with some ongoing hypoxemia. The patient is known to have COPD with chronic hypoxic respiratory failure. She is morbidly obese with a BMI of 47.0. She is oxygen dependent. She is also known to have diabetes mellitus, hyperlipidemia and schizophrenia. She is a long-term resident at [facility]. At the time of her admission, the patient was placed on a nonrebreather facemask and subsequently the patient was transition to BiPAP. EKG showed a normal sinus rhythm. Chest x-ray showed smaller lung volumes and generalized hazy appearance atelectasis and component of pulm vessel congestion/edema. CT of the chest showed no evidence of any pulmonary embolism. There was scattered sclerotic foci throughout the osseous structures correlated with possible malignancy. Mild cardiomegaly. Mild pulm vessel congestion. There was motion artifact. CAT scan of the brain was negative. The white cell count was at 7.5 with a hemoglobin 10.8 and a D-dimer of 0.82. Sodium is at 140, potassium is 3.9, serum bicarb is at 40 with a BUN of 17 and a creatinine of 0.6. proBNP level was 915. Troponins were negative. Viral 4 Plex was negative. The blood gas was also obtained that showed a chronic hypercapnic respiratory failure with a pH of 7.42 with a pCO2 of 67 and pO2 of 75. UA showed +1 ketones, +1 protein, no infections. The patient is currently on DuoNeb nebulized treatments [id number]. She was started on IV Rocephin. She was started on Lasix 40 mg IV every 12 hours. She is also on Levemir insulin 10 units daily and sliding scale insulin coverage. She has been maintained on long-term anticoagulation with Xarelto.Doppler of the lower extremities were negative for DVT. D-dimer is at 0.82. The patient is seen today November 08, 2024 in follow-up on the selective care unit. She is currently sitting up in bed. Awake and alert in no acute di stress. A health and safety manager is at the bedside. She is maintaining good O2 saturations in the mid 90s on 5 L high flow nasal cannula. She has been afebrile. Hemodynamically stable. White count 8.1. Hemoglobin 10.0. Platelets 244. Sodium 141. Potassium 3.5. Bicarb 42. BUN 21. Creatinine 0.74. Glucose 142. She remains on DuoNeb inhalations, Pulmicort inhalations. Antibiotics in the form of ceftriaxone. She remains on oral diuretics. Anticoagulated with Xarelto. The patient is seen today November 09, 2024 in follow-up on the selective care unit. She is currently resting in bed. Somewhat drowsy but arousable. Currently on BiPAP 14/5 and 55% FiO2. Arterial blood gases were drawn and show a PaO2 of 87, pCO2 of 73 and a pH of 7.39. White count 6.3. Hemoglobin 10.3. Platelets 220. Sodium 144. Potassium 3.8. Bicarb 41. BUN 30. Creatinine 0.66. Glucose 107. She remains on ceftriaxone. Continued on DuoNeb inhalations. Remains on oral diuretics. Anticoagulated with Xarelto. The patient is seen today November 10, 2024 in follow-up on the selective care unit. She is more awake and alert today compared to yesterday. No worsening shortness of breath, cough or congestion. She is maintaining good O2 saturations in the 90s on 6 L/min per nasal cannula. Alternating with BiPAP 15/5 and 40% FiO2. She is continued on DuoNeb inhalations, Pulmicort inhalations. Remains on oral diuretics. Remains on ceftriaxone. Anticoagulated with Xarelto. Urine culture revealed no growth. Glucose 120. The patient is seen today November 11, 2024 in follow-up on the selective care unit. She is resting in bed. Awake and alert in no acute distress. Denies any worsening shortness of breath, cough or congestion. She is currently on 6 L high flow nasal cannula. She is alternating with BiPAP 14/5 and 40% FiO2. She remains on DuoNeb and elations, Pulmicort inhalations. Xarelto for anticoagulation. Remains on oral diuretics. Urine culture revealed no growth. Currently on ceftriaxone. White count 7.1. Hemoglobin 11.1. Platelets 199. Sodium 141. Potassium 3.5. Bicarb 39. BUN 16. Creatinine 0.57. Glucose 120. The patient is seen today November 12, 2024 in follow-up on the selective care unit. She is currently sitting up in bed. Awake and alert in no acute distress. Maintaining good O2 saturations in the 90s on 6 L/min per high flow nasal cannula. She is afebrile. Hemodynamically stable. White count 6.5. Hemoglobin 10.3. Platelets 189. Sodium 141. Potassium 3.4. Bicarb 38. BUN 17. Creatinine 0.60. Glucose 131. She is continued on DuoNeb inhalations, Pulmicort inhalations, anticoagulated with Xarelto. She remains on antibiotics in the form of ceftriaxone. Continued on oral diuretics. The patient is seen today November 13, 2024 in follow-up on the selective care unit. She is currently on BiPAP. Arousable. Her mentation continues to wax and wane. She did wear BiPAP last night 14/5 and 40% FiO2. Alternating with 6 L high flow nasal cannula when awake and alert. She remains on DuoNeb and elations, Pulmicort. Remains on oral diuretics. Remains on ceftriaxone. Anticoagulated with Xarelto. Urine culture revealed no growth. Glucose 222. The patient is seen today November 14, 2024 in follow-up on the selective care unit. She is currently awake and alert. Maintaining O2 saturations in the 90s on absence earlier this morning. No worsening shortness of breath, cough or congestion. Picking her medications today. White count 6.0. Hemoglobin 9.8. Platelets 192. Sodium 137. Potassium 4.0. Bicarb 38. BUN 17. Creatinine 0.46. Glucose 125. She is continued on DuoNeb and elations, Pulmicort inhalations. Anticoagulated with Xarelto. Remains on oral diuretics. Completed Rocephin. The patient is seen today November 15, 2024 in follow-up on the selective care unit. She is sitting up in bed. Awake and alert today. Maintaining good O2 saturations in the 90s on 6 L high flow nasal cannula. She did utilize BiPAP for the night 14/5 and 40% FiO2. She has been afebrile. Hemodynamically stable. White count 5.8. Hemoglobin 9.7. Platelets 203. Sodium 140. Potassium 4.0. Bicarb 37. BUN 15. Creatinine 0.6. Glucose 138. She is continued on DuoNeb inhalations, Pulmicort inhalations, anticoagulated with Xarelto. Objective - Vital Signs Vital signs: Vital Signs Temp 99.1 F 11/15/24 08:27 Pulse 77 11/15/24 14:00 Resp 18 11/15/24 14:00 BP 116/73 11/15/24 11:27 Pulse Ox 94 L 11/15/24 11:27 FiO2 40 11/15/24 08:27 Intake & Output 11/14/24 11/15/24 11/15/24 18:59 06:59 18:59 Intake Total 150 10 10 Output Total 1000 Balance 150 -990 10 Weight 128 kg 128 kg Intake: IV 10 10 0.9 10 Invasive Line 3 10 Intake, IV Titration 150 Amount Valproate Sodium 500 mg 100 In Sodium Chloride 0.9% 100 ml @ 100 mls/hr IVPB DAILY [facility] Rx#:[id number] cefTRIAXone 1 gm In 50 Sodium Chloride 0.9% 50 ml @ 100 mls/hr IVPB Q24HR [facility] Rx#:[id number] Output: Urine 1000 Other: Voiding Method External Catheter External Catheter External Catheter # Voids 2 # Bowel Movements 1 - Exam GENERAL EXAM: Awake, alert 64-year-old female, sitting up in bed, comfortable, on 6 L high flow nasal cannula. HEAD: Normocephalic. EYES: Normal reaction of pupils, equal size. NOSE: Clear with pink turbinates. THROAT: No erythema or exudates. NECK: No masses, no JVD. CHEST: No chest wall deformity. LUNGS: Equal air entry with bilateral scattered rhonchi. CVS: S1 and S2 normal with an audible murmur, regular rhythm. ABDOMEN: No hepatosplenomegaly, normal bowel sounds, no guarding or rigidity. SPINE: No scoliosis or deformity SKIN: No rashes CENTRAL NERVOUS SYSTEM: No focal deficits, tone is normal in all 4 extremities. EXTREMITIES: Felix wraps on the bilateral lower extremities. There is 1-2+ chronic peripheral edema. Peripheral pulses are intact. - Labs CBC & Chem 7: 11/15/24 05:43 11/15/24 05:43 Labs: Abnormal Lab Results - Last 24 Hours (Table) 11/14/24 11/14/24 11/15/24 Range/Units 16:07 20:29 00:07 RBC (3.80-5.40) m/uL Hgb (11.4-16.0) gm/dL Hct (34.0-46.0) % RDW (11.5-15.5) % Carbon Dioxide (22-30) mmol/L Glucose (74-99) mg/dL POC Glucose (mg/dL) 206 H 166 H 183 H (70-110) mg/dL 11/15/24 11/15/24 11/15/24 Range/Units 05:43 05:43 06:24 RBC 3.41 L (3.80-5.40) m/uL Hgb 9.7 L (11.4-16.0) gm/dL Hct 31.0 L (34.0-46.0) % RDW 16.8 H (11.5-15.5) % Carbon Dioxide 37 H (22-30) mmol/L Glucose 138 H (74-99) mg/dL POC Glucose (mg/dL) 143 H (70-110) mg/dL 11/15/24 Range/Units 11:40 RBC (3.80-5.40) m/uL Hgb (11.4-16.0) gm/dL Hct (34.0-46.0) % RDW (11.5-15.5) % Carbon Dioxide (22-30) mmol/L Glucose (74-99) mg/dL POC Glucose (mg/dL) 132 H (70-110) mg/dL Assessment and Plan Assessment: Altered mental status under investigation. Rule out metabolic factors and the blood gases showing chronic compensated respiratory acidosis. Patient was hypoxic at the time of admission could be attributed to a component of COPD and mild CHF with diastolic failure.CAT scan of the chest was reviewed and there is no evidence of any pulmonary embolism. There is motion artifact and there is COPD and mild pulm venous congestion. The patient was started on bronchodilators and Lasix. Completed Rocephin. Urine culture revealed no growth. She is awake and alert today without pulmonary complaints Acute on chronic hypoxic/hypercapnic respiratory failure, alternating 6 L high f low nasal cannula with BiPAP 14/5 and 40% FiO2 Acute exacerbation of chronic obstructive pulmonary disease. Suspect CHF with diastolic heart failure, proBNP level is mildly elevated History of chronic tobacco dependence. Sschizophrenia. Diabetes mellitus, type II. History of seizures. Chronic lower extremity edema. Repeated Dopplers have been negative for DVT and the patient has been maintained on Xarelto Hypertension. Hyperlipidemia. senior living resident with an impaired based on performance and functional status Previous history of COVID-19 infection, 2021 in 2022, x 2 Plan: The patient was seen and evaluated Labs and medications reviewed Today she is awake and alert and cooperative Titrate down the FiO2 as tolerated Continue bronchodilators Remains on oral diuretics Anticoagulated with Xarelto Cleared to return to [facility] I have personally seen and examined the patient, performed the documentation and the assessment and plan as written. Number of minutes spent on the visit: 10 Dictation was produced using [employer] dictation software. Please excuse any grammatical, word or spelling errors.
--- NOTE | 2024-11-15 15:43 | XR ---
EXAMINATION TYPE: XR chest 1V portable DATE OF EXAM: 11/15/2024 CLINICAL HISTORY: Difficulty breathing progress study. TECHNIQUE: Single AP portable upright view of the chest is obtained. COMPARISON: Chest CT and chest x-ray from 9 days earlier FINDINGS: Persistent bilateral increased opacities. Cardiac silhouette size is stable and upper limi ts of normal. Osseous structures are intact. IMPRESSION: Possible bilateral acute infiltrates and/or edema on background chronic emphysematous randy nge. No significant change from most recent studies. [facility], , 11/15/2024 3:41 PM
[2024-11-15 18:05] LABS: Glucose,Whole Blood 193 mg/dL (70-110)
--- NOTE | 2024-11-15 21:52 | PN ---
PROGRESS NOTE DATE OF SERVICE: 11/15/2024 SUBJECTIVE: This is a 64-year-old woman, who was admitted with metabolic encephalopathy and respiratory failure, also had COPD and CHF acute exacerbation also. The patient is being closely monitored. No chest pain. No palpitation at this time. OBJECTIVE: VITAL SIGNS: Pulse is 78, blood pressure 116/70, respirations 18. HEENT: Conjunctivae normal. CARDIOVASCULAR: S1, S2. RESPIRATIONS: A few scattered rhonchi. ABDOMEN: Soft. NERVOUS SYSTEM: Nonfocal. LABORATORY DATA: Glucose 143. Rest of the labs are noted. Chest x-ray done on 11/06 reviewed. ASSESSMENT: 1. Shortness of breath with chronic obstructive pulmonary disease and congestive heart failure acute exacerbation with acute on chronic hypoxic hypercarbic respiratory failure. 2. Acute metabolic encephalopathy. 3. History of chronic nicotine dependence. 4. Schizophrenia. 5. Diabetes mellitus, type 2. 6. History of seizures. 7. Chronic lower extremity edema. 8. Hypertension. 9. Hyperlipidemia. 10.Multiple complex medical issues. RECOMMENDATIONS: Recommend to continue current management and continue symptomatic treatment. Otherwise, at this time, I recommend repeat labs. Other than that, resume the home medications. Continue to monitor. Guarded prognosis. Further recommendations to follow. MMODL / IJN: [id number] /
[2024-11-15 23:43] LABS: Glucose,Whole Blood 183 mg/dL (70-110)
[2024-11-16 06:17] LABS: Glucose,Whole Blood 145 mg/dL (70-110)
[2024-11-16 11:37] LABS: Anisocytosis Slight; Basophils % (A) 1 %; Eosinophils % (A) 0 %; HCT 31.4 % (34.0-46.0); HGB 9.8 gm/dL (11.4-16.0); Hypochromasia Moderate; Lymphocytes # (A) 1.3 k/uL (1.0-4.8); Lymphocytes % (A) 22 %; MCH 28.1 pg (25.0-35.0); MCHC 31.2 g/dL (31.0-37.0); Mean Platelet Volume 8.1; Monocytes # (A) 0.7 k/uL (0-1.0); Monocytes % (A) 12 %; Neutrophils # (A) 3.6 k/uL (1.3-7.7); Neutrophils % (A) 64 %; Platelet Count 204 k/uL (150-450); Poikilocytosis Slight; RBC 3.49 m/uL (3.80-5.40); RDW 16.7 % (11.5-15.5); WBC 5.7 k/uL (3.8-10.6)
[2024-11-16 11:41] LABS: Glucose,Whole Blood 144 mg/dL (70-110)
[2024-11-16 11:49] LABS: African American GFR (CKD) >90 (>60 ml/min/1.73 sqM); Anion Gap 4 mmol/L; Blood Urea Nitrogen 15 mg/dL (7-17); Calcium 8.8 mg/dL (8.4-10.2); Carbon Dioxide 40 mmol/L (22-30); Chloride 96 mmol/L (98-107); Glucose 143 mg/dL (74-99); Non-African American GFR(CKD) >90 (>60 ml/min/1.73 sqM); Potassium 3.6 mmol/L (3.5-5.1); Sodium 140 mmol/L (137-145)
[2024-11-16 11:59] VITALS: RESP 18
--- NOTE | 2024-11-16 15:22 | P.PN ---
Subjective Progress Note Date: 11/16/24 Principal diagnosis: Reason for follow-up is bilateral lower extremity swelling question of cellulitis Patient is a 64-year-old female with a past medical history signif icant for diabetes mellitus hypertension hyperlipidemia COPD patient has been brought to the hospital for evaluation of mental status changes, patient noted to be hypoxic requiring BiPAP also have lower extremity swelling for evaluation there were concern for possible cellulitis prompted this consultation. On today's evaluation that is 11/16/2024, Patient is afebrile this morning patient still requiring high flow nasal oxygen currently at 6 L she is slightly sleepy lethargic not a good historian no vomiting diarrhea and the change reported by the nursing staff. Patient white count is 5.7, creatinine 0.50 urine culture has been negative Objective - Vital Signs Vital signs: Vital Signs Temp 97.4 F L 11/16/24 11:56 Pulse 80 11/16/24 11:56 Resp 18 11/16/24 11:56 BP 102/67 11/16/24 11:56 Pulse Ox 93 L 11/16/24 11:56 FiO2 40 11/16/24 09:25 Intake & Output 11/15/24 11/16/24 11/16/24 18:59 06:59 18:59 Intake Total 250 230 Output Total 350 Balance -100 230 Weight 128 kg 125.5 kg Intake: IV 10 10 0.9 10 10 Intake, IV Titration 100 Amount Valproate Sodium 500 mg 100 In Sodium Chloride 0.9% 100 ml @ 100 mls/hr IVPB DAILY [facility] Rx#:[id number] Oral 240 120 Output: Urine 350 Other: Voiding Method External Catheter External Catheter External Catheter # Bowel Movements 1 - Exam GENERAL DESCRIPTION: Middle-age female lying in bed in no distress RESPIRATORY SYSTEM: Unlabored breathing , decreased breath sounds at bases HEART: S1 S2 regular rate and rhythm , ABDOMEN: Soft , no tenderness EXTREMITIES: Bilateral lower extremity swelling has decreased minimal redness noticed - Labs CBC & Chem 7: 11/16/24 11:01 11/16/24 11:01 Labs: Abnormal Lab Results - Last 24 Hours (Table) 11/15/24 11/15/24 11/16/24 Range/Units 18:03 23:42 06:13 RBC (3.80-5.40) m/uL Hgb (11.4-16.0) gm/dL Hct (34.0-46.0) % RDW (11.5-15.5) % Chloride (98-107) mmol/L Carbon Dioxide (22-30) mmol/L Creatinine (0.52-1.04) mg/dL Glucose (74-99) mg/dL POC Glucose (mg/dL) 193 H 183 H 145 H (70-110) mg/dL 11/16/24 11/16/24 11/16/24 Range/Units 11:01 11:01 11:39 RBC 3.49 L (3.80-5.40) m/uL Hgb 9.8 L (11.4-16.0) gm/dL Hct 31.4 L (34.0-46.0) % RDW 16.7 H (11.5-15.5) % Chloride 96 L (98-107) mmol/L Carbon Dioxide 40 H (22-30) mmol/L Creatinine 0.50 L (0.52-1.04) mg/dL Glucose 143 H (74-99) mg/dL POC Glucose (mg/dL) 144 H (70-110) mg/dL Assessment and Plan (1) Swelling of both lower extremities Current Visit: Yes Status: Acute Code(s): M79.89 - OTHER SPECIFIED SOFT TISSUE DISORDERS SNOMED Code(s): 061670086 (2) Bilateral lower leg cellulitis Current Visit: Yes Status: Acute Code(s): L03.116 - CELLULITIS OF LEFT LOWER LIMB; L03.115 - CELLULITIS OF RIGHT LOWER LIMB SNOMED Code(s): 748461775 Plan: 1patient with presentation to hospital with mental status changes hypoxemia increasing shortness of breath in this patient who do have features of fluid overload with evidence of diffuse swelling to lower extremity that was negative for DVT mild erythema could be related to the venous stasis cellulitis less likely but not excluded patient also have a negative UA hard to get any history from this patient regarding urinary symptoms clinical suspicious low for UTI 2patient has been afebrile white count has been normal nursing staff has been advised to reapply the Felix wrap to keep the swelling down and will monitor closely off antibiotic at this point Dictation was produced using [employer] software. please excuse any grammatical, word or spelling errors. Time with Patient: Less than 30
[2024-11-16 15:23] VITALS: BP 94/56; TEMP 98
--- NOTE | 2024-11-16 15:24 | P.DS ---
Providers Date of admission: 11/06/24 18:49 Expected date of discharge: 11/16/24 Attending physician: Elio Day Consults: 11/06/24 18:49 Consult Physician Routine Consulting Provider: Kraig Gonzalez Consult Reason/Comments: CHF Do you want consulting provider notified?: Yes, Notify in am 11/06/24 20:38 Consult Physician Routine Consulting Provider: Amilcar Burrell Consult Reason/Comments: COPD Do you want consulting provider notified?: Yes 11/09/24 14:00 Consult Physician Routine Consulting Provider: Valerio Glass Consult Reason/Comments: uti Do you want consulting provider notified?: Yes Primary care physician: [facility] Course: Final diagnosis Shortness of breath with chronic obstructive pulmonary disease and congestive heart failure acute exacerbation with acute on chronic hypoxic hypercarbic respiratory failure Acute metabolic encephalopathy, secondary to above History of chronic nicotine dependence History of schizophrenia Diabetes mellitus, type II History of seizures Chronic lower extremity edema Morbid obesity with a BMI of 43.3 Hypertension Hyperlipidemia Discharge disposition Patient is being discharged in a stable condition with guarded prognosis to [facility]. Patient will follow-up with in the outpatient setting upon discharge. Patient is to continue with hemodialysis as scheduled. Total time taken is greater than 35 minutes. Hospital course This is a 64-year-old female who was recently admitted with metabolic encephalopathy with acute on chronic respiratory failure with COPD and CHF exacerbation. Patient being monitored by pulmonary maintained on BiPAP and will continue BiPAP at night and if becoming somnolent recommend BiPAP as needed throughout the day. Patient has been cleared by consultations for discharge to [facility] and will be returning today. Please refer to other consultation notes for further HPI. Currently no reports of chest pain, shortness of breath, or palpitations. Patient is afebrile. No reports of nausea or vomiting and patient is tolerating diet. Patient will be going to [facility] today. Guarded prognosis and high risk for readmissions given patient significant comorbidities and overall generalized poor health. BiPAP settings are 145 with an FiO2 of 40% and recommend 8 PM to 8 AM and may use as needed if becoming more somnolent Physical exam: Gen: This is a 64-year-old female who is awake, alert oriented x 1-2, baseline, well-developed, elderly appearing, morbidly obese HEENT: Head is atraumatic, normocephalic. Pupils equal, round. Sclerae is anicte gavi. NECK: Supple. No JVD. No lymphadenopathy. No thyromegaly. LUNGS: Diminished breath sounds bilaterally with coarse rhonchi. No intercostal retractions. HEART: S1, S2 are muffled ABDOMEN: Soft. Obese bowel sounds are present. No masses. No tenderness. EXTREMITIES: No pedal edema. No calf tenderness. Generalized edema NEUROLOGICAL: Patient is awake, alert and oriented x 12. Cranial nerves 2 through 12 are grossly intact. Diffusely weak Please refer to medication reconciliation sheet for a list of medications. The impression and plan of care has been dictated by Shonda Junior, Nurse Practitioner as directed. Dr. Shay MD I have performed a history and examination and MDM of this patient, discussed the same with the dictator, and agree with the dictator's assessment and plan as written ,documented as a scribe. Based on total visit time, I have performed more than 50% of the visit. Patient Condition at Discharge: Stable Plan - Discharge Summary Discharge Rx Participant: No New Discharge Prescriptions: New Furosemide [Lasix] 20 mg PO 1600 tab Budesonide [Pulmicort] 1 mg INHALATION RT-BID ml Ipratropium-Albuterol Nebulize [Duoneb 0.5 mg-3 mg/3 ml Soln] 3 ml INHALATION RT-Q2H PRN each PRN Reason: Shortness Of Breath Or Wheezing Furosemide [Lasix] 40 mg PO DAILY tab Continue Ergocalciferol [Vitamin D2 (DRISDOL)] 50,000 unit PO SA@1700 Linagliptin [Tradjenta] 5 mg PO DAILY@0800 Ipratropium-Albuterol Nebulize [Duoneb 0.5 mg-3 mg/3 ml Soln] 3 ml INHALATION RT-QID@00,06,12,18 Budesonide-Formot 160-4.5 Mcg [Symbicort 160-4.5 Mcg Inhaler] 2 puff INHALATION RT-BID@08,17 Acetaminophen [Tylenol] 500 mg PO Q6H PRN #0 PRN Reason: Pain Aspirin 81 mg PO DAILY@0800 Famotidine [Pepcid] 20 mg PO DAILY@0800 Lactulose [Cephulac] 20 gm PO DAILY PRN ml PRN Reason: Constipation cloZAPine [Clozaril] 200 mg PO HS@2100 Divalproex ER [Depakote ER] 250 mg PO HS@2100 Insulin Lispro [Admelog] 7 units SQ BID@0800,1700 Multivitamins, Thera [Multivitamin (formulary)] 1 each PO DAILY@1200 tab Nystatin 100,000 Unit/gm Powd [Mycostatin Powder] 1 applic TOPICAL TID PRN each PRN Reason: Skin Irritation Folic Acid 1 mg PO DAILY@0800 metFORMIN HCL [Glucophage] 1,000 mg PO BID@0800,1700 Atorvastatin Calcium [Lipitor] 20 mg PO HS@2100 Ascorbic Acid [Vitamin C] 500 mg PO BID@0800,1700 Rivaroxaban [Xarelto] 10 mg PO DAILY@0800 Zinc Sulfate [Orazinc] 220 mg PO DAILY@1700 Magnesium Hydroxide [Milk of Magnesia Concentrate] 7,200 mg PO DAILY PRN PRN Reason: Constipation bisacodyL [Dulcolax] 10 mg RECTAL DAILY PRN PRN Reason: Constipation Na Phos,M-B/Na Phos,Di-Ba [Fleet Adult] 133 ml RECTAL DAILY PRN PRN Reason: Constipation Divalproex ER [Depakote ER] 500 mg PO BID@0800,2100 Insulin Degludec [Tresiba Flextouch U-100 Pen] 10 units SQ DAILY@0800 Insulin Lispro [Admelog] See Protocol SQ AC-TID@,,1630 Insulin Lispro [Admelog] 10 units SQ DAILY@1200 Loperamide [Imodium] 2 - 4 mg PO TID PRN MDD 8mg PRN Reason: Diarrhea Thiamine [Vitamin B-1] 100 mg PO DAILY@0800 Discontinued predniSONE 10 mg PO DAILY@0800 Furosemide [Lasix] 20 mg PO BID@0800,1700 Discharge Medication List Ergocalciferol [Vitamin D2 (DRISDOL)] 50,000 unit PO SA@1700 09/02/19 [History] Linagliptin [Tradjenta] 5 mg PO DAILY@0800 04/20/20 [History] Ipratropium-Albuterol Nebulize [Duoneb 0.5 mg-3 mg/3 ml Soln] 3 ml INHALATION RT-QID@00,06,12,18 04/12/21 [History] Atorvastatin Calcium [Lipitor] 20 mg PO HS@209911/05/21 [History] Budesonide-Formot 160-4.5 Mcg [Symbicort 160-4.5 Mcg Inhaler] 2 puff INHALATION RT-BID@,11/05/21 [History] metFORMIN HCL [Glucophage] 1,000 mg PO BID@0800,1700 11/05/21 [History] Acetaminophen [Tylenol] 500 mg PO Q6H PRN #0 11/16/21 [Rx] Ascorbic Acid [Vitamin C] 500 mg PO BID@0800,1700 12/07/21 [History] Aspirin 81 mg PO DAILY@0800 12/07/21 [History] Famotidine [Pepcid] 20 mg PO DAILY@0800 12/07/21 [History] Rivaroxaban [Xarelto] 10 mg PO DAILY@0800 12/07/21 [History] Zinc Sulfate [Orazinc] 220 mg PO DAILY@17012/07/21 [History] Lactulose [Cephulac] 20 gm PO DAILY PRN ml 12/11/21 [Rx] Magnesium Hydroxide [Milk of Magnesia Concentrate] 7,200 mg PO DAILY PRN 10/01/23 [History] Na Phos,M-B/Na Phos,Di-Ba [Fleet Adult] 133 ml RECTAL DAILY PRN 10/01/23 [History] bisacodyL [Dulcolax] 10 mg RECTAL DAILY PRN 10/01/23 [History] cloZAPine [Clozaril] 200 mg PO HS@209910/01/23 [History] Divalproex ER [Depakote ER] 250 mg PO HS@209909/09/24 [History] Divalproex ER [Depakote ER] 500 mg PO BID@0800,209909/09/24 [History] Insulin Degludec [Tresiba Flextouch U-100 Pen] 10 units SQ DAILY@0800 09/09/24 [History] Insulin Lispro [Admelog] 7 units SQ BID@0800,1700 09/09/24 [History] Insulin Lispro [Admelog] 10 units SQ DAILY@1200 09/09/24 [History] Insulin Lispro [Admelog] See Protocol SQ AC-TID@07,,1630 09/09/24 [History] Loperamide [Imodium] 2 - 4 mg PO TID PRN MDD 8mg 09/09/24 [History] Multivitamins, Thera [Multivitamin (formulary)] 1 each PO DAILY@1200 tab 09/18/24 [Rx] Nystatin 100,000 Unit/gm Powd [Mycostatin Powder] 1 applic TOPICAL TID PRN each 09/18/24 [Rx] Folic Acid 1 mg PO DAILY@0800 11/06/24 [History] Thiamine [Vitamin B-1] 100 mg PO DAILY@0800 11/06/24 [History] Budesonide [Pulmicort] 1 mg INHALATION RT-BID ml 11/16/24 [Rx] Furosemide [Lasix] 20 mg PO 1600 tab 11/16/24 [Rx] Furosemide [Lasix] 40 mg PO DAILY tab 11/16/24 [Rx] Ipratropium-Albuterol Nebulize [Duoneb 0.5 mg-3 mg/3 ml Soln] 3 ml INHALATION RT-Q2H PRN each 11/16/24 [Rx] Follow up Appointment(s)/Referral(s): Bello Alberto MD [Primary Care Provider] - 1-2 days Manohar Rogers DO [Doctor of Osteopathic Medicine] - 1 Week Activity/Diet/Wound Care/Special Instructions: Patient is going to [facility] as tolerated Continue with supplemental oxygen throughout the day and BiPAP at night Continue heart healthy diabetic diet Follow-up primary care provider on discharge Discharge Disposition: TRANSFER TO SNF/ECF
--- NOTE | 2024-11-16 15:46 | P.PN ---
Subjective Progress Note Date: 11/16/24 Principal diagnosis: Shortness of breath. The patient is seen today November 09, 2024 in follow-up on the selective care unit. She is currently resting in bed. Somewhat drowsy but arousable. Currently on BiPAP 14/5 and 55% FiO2. Arterial blood gases were drawn and show a PaO2 of 87, pCO2 of 73 and a pH of 7.39. White count 6.3. Hemoglobin 10.3. Platelets 220. Sodium 144. Potassium 3.8. Bicarb 41. BUN 30. Creatinine 0.66. Glucose 107. She remains on ceftriaxone. Continued on DuoNeb inhalations. Remains on oral diuretics. Anticoagulated with Xarelto. The patient is seen today November 10, 2024 in follow-up on the selective care unit. She is more awake and alert today compared to yesterday. No worsening shortness of breath, cough or congestion. She is maintaining good O2 saturations in the 90s on 6 L/min per nasal cannula. Alternating with BiPAP 15/5 and 40% FiO2. She is continued on DuoNeb inhalations, Pulmicort inhalations. Remains on oral diuretics. Remains on ceftriaxone. Anticoagulated with Xarelto. Urine culture revealed no growth. Glucose 120. The patient is seen today November 11, 2024 in follow-up on the selective care unit. She is resting in bed. Awake and alert in no acute distress. Denies any worsening shortness of breath, cough or congestion. She is currently on 6 L high flow nasal cannula. She is alternating with BiPAP 14/5 and 40% FiO2. She remains on DuoNeb and elations, Pulmicort inhalations. Xarelto for anti coagulation. Remains on oral diuretics. Urine culture revealed no growth. Currently on ceftriaxone. White count 7.1. Hemoglobin 11.1. Platelets 199. Sodium 141. Potassium 3.5. Bicarb 39. BUN 16. Creatinine 0.57. Glucose 120. The patient is seen today November 12, 2024 in follow-up on the selective care unit. She is currently sitting up in bed. Awake and alert in no acute distress. Maintaining good O2 saturations in the 90s on 6 L/min per high flow nasal cannula. She is afebrile. Hemodynamically stable. White count 6.5. Hemoglobin 10.3. Platelets 189. Sodium 141. Potassium 3.4. Bicarb 38. BUN 17. Creatinine 0.60. Glucose 131. She is continued on DuoNeb inhalations, Pulmicort inhalations, anticoagulated with Xarelto. She remains on antibiotics in the form of ceftriaxone. Continued on oral diuretics. The patient is seen today November 13, 2024 in follow-up on the selective care unit. She is currently on BiPAP. Arousable. Her mentation continues to wax and wane. She did wear BiPAP last night 14/5 and 40% FiO2. Alternating with 6 L high flow nasal cannula when awake and alert. She remains on DuoNeb and elations, Pulmicort. Remains on oral diuretics. Remains on ceftriaxone. Anticoagulated with Xarelto. Urine culture revealed no growth. Glucose 222. The patient is seen today November 14, 2024 in follow-up on the selective care unit. She is currently awake and alert. Maintaining O2 saturations in the 90s on absence earlier this morning. No worsening shortness of breath, cough or congestion. Picking her medications today. White count 6.0. Hemoglobin 9.8. Platelets 192. Sodium 137. Potassium 4.0. Bicarb 38. BUN 17. Creatinine 0.46. Glucose 125. She is continued on DuoNeb and elations, Pulmicort inhalations. Anticoagulated with Xarelto. Remains on oral diuretics. Completed Rocephin. The patient is seen today November 15, 2024 in follow-up on the selective care unit. She is sitting up in bed. Awake and alert today. Maintaining good O2 saturations in the 90s on 6 L high flow nasal cannula. She did utilize BiPAP for the night 14/5 and 40% FiO2. She has been afebrile. Hemodynamically stable. White count 5.8. Hemoglobin 9.7. Platelets 203. Sodium 140. Potassium 4.0. Bicarb 37. BUN 15. Creatinine 0.6. Glucose 138. She is continued on DuoNeb inhalations, Pulmicort inhalations, anticoagulated with Xarelto. Progress note dated November 16, 2024. 64-year-old female seen today in room 381. The patient is currently on 6 L of oxygen. She is not receiving any IV fluids. She is using BiPAP, at nighttime, at 14/5, and 40%. Clinically, the patient appears to be relatively stable, and is pretty much at baseline. Current labs include a white count 5.7, hemoglobin 9.8, hematocrit 31.4, and a platelet count of 204,000. Sodium 140, potassium 3.6, chlorides 96, CO2 40, BUN 15, and creatinine 0.5. Glucose is 144. Calcium is 8.8. X-ray from yesterday shows possible bilateral acute infiltrates and/or edema. Objective - Vital Signs Vital signs: Vital Signs Temp 98.0 F 11/16/24 15:22 Pulse 78 11/16/24 15:22 Resp 18 11/16/24 15:22 BP 94/56 11/16/24 15:22 Pulse Ox 94 L 11/16/24 15:22 FiO2 40 11/16/24 09:25 Intake & Output 11/15/24 11/16/24 11/16/24 18:59 06:59 18:59 Intake Total 250 230 Output Total 350 850 Balance -100 230 -850 Weight 128 kg 125.5 kg Intake: IV 10 10 0.9 10 10 Intake, IV Titration 100 Amount Valproate Sodium 500 mg 100 In Sodium Chloride 0.9% 100 ml @ 100 mls/hr IVPB DAILY [facility] Rx#:[id number] Oral 240 120 Output: Urine 350 850 Other: Voiding Method External Catheter External Catheter External Catheter # Bowel Movements 1 - Exam No acute distress, oriented 3. HEENT examination is grossly unremarkable. Mucous membranes are moist. No oral lesions. Neck supple. Full range of motion. No adenopathy thyromegaly or neck vein distention. Cardiovascular examination reveals regular rhythm rate. S1-S2 normal. No S3 or S4. No discernible murmur noted. Heart sounds are distant. Lungs reveal diffuse bilateral rhonchi. Minimal basilar crackles. Breath sounds are equal bilaterally. Abdomen soft bowel sounds are heard. No masses or tenderness. Extremities are intact. No cyanosis or clubbing. 1+ edema is present. Skin reveals some chronic lower extremity venous stasis changes. Neurologic examination is brief but nonfocal. - Labs CBC & Chem 7: 11/16/24 11:01 11/16/24 11:01 Labs: Abnormal Lab Results - Last 24 Hours (Table) 11/15/24 11/15/24 11/16/24 Range/Units 18:03 23:42 06:13 RBC (3.80-5.40) m/uL Hgb (11.4-16.0) gm/dL Hct (34.0-46.0) % RDW (11.5-15.5) % Chloride (98-107) mmol/L Carbon Dioxide (22-30) mmol/L Creatinine (0.52-1.04) mg/dL Glucose (74-99) mg/dL POC Glucose (mg/dL) 193 H 183 H 145 H (70-110) mg/dL 11/16/24 11/16/24 11/16/24 Range/Units 11:01 11:01 11:39 RBC 3.49 L (3.80-5.40) m/uL Hgb 9.8 L (11.4-16.0) gm/dL Hct 31.4 L (34.0-46.0) % RDW 16.7 H (11.5-15.5) % Chloride 96 L (98-107) mmol/L Carbon Dioxide 40 H (22-30) mmol/L Creatinine 0.50 L (0.52-1.04) mg/dL Glucose 143 H (74-99) mg/dL POC Glucose (mg/dL) 144 H (70-110) mg/dL Assessment and Plan Assessment: Altered mental status under investigation. Rule out metabolic factors and the blood gases showing chronic compensated respiratory acidosis. Patient was hypoxic at the time of admission could be attributed to a component of COPD and mild CHF with diastolic failure.CAT scan of the chest was reviewed and there is no evidence of any pulmonary embolism. There is motion artifact and there is COPD and mild pulm venous congestion. The patient was started on bronchodilators and Lasix. Completed Rocephin. Urine culture revealed no growt h. She is awake and alert today without pulmonary complaints. Acute on chronic hypoxic/hypercapnic respiratory failure, alternating 6 L high flow nasal cannula with BiPAP 14/5 and 40% FiO2. Acute exacerbation of chronic obstructive pulmonary disease. Suspect CHF with diastolic heart failure, proBNP level is mildly elevated. History of chronic tobacco dependence. Sschizophrenia. Diabetes mellitus, type II. History of seizures. Chronic lower extremity edema. Repeated Dopplers have been negative for DVT and the patient has been maintained on Xarelto. Hypertension. Hyperlipidemia. jail resident with an impaired based on performance and functional status. Previous history of COVID-19 infection, 2021 in 2022, x 2. Plan: Plan dated November 16, 2024. The patient is seen today in room 381. She is currently on 5 L nasal cannula. She does use BiPAP, at 14/5 and 40%. She is not receiving any IV fluids. Labs, x-rays, and all medications are reviewed. The patient will be discharged back tomorrow with fpc, and, from the pulmonary standpoint, he is stable for transfer back. Labs, x-rays, and all medications have been reviewed. We will continue to follow should she not be discharged. Prognosis is guarded. Time with Patient: Less than 30
--- NOTE | 2024-11-16 15:47 | P.DS ---
Providers Date of admission: 11/06/24 18:49 Expected date of discharge: 11/16/24 Attending physician: Elio Day Consults: 11/06/24 18:49 Consult Physician Routine Consulting Provider: Kraig Gonzalez Consult Reason/Comments: CHF Do you want consulting provider notified?: Yes, Notify in am 11/06/24 20:38 Consult Physician Routine Consulting Provider: Amilcar Burrell Consult Reason/Comments: COPD Do you want consulting provider notified?: Yes 11/09/24 14:00 Consult Physician Routine Consulting Provider: Valerio Glass Consult Reason/Comments: uti Do you want consulting provider notified?: Yes Primary care physician: Bello Alberto [facility] Course: Final diagnosis Shortness of breath with chronic obstructive pulmonary disease and congestive heart failure acute exacerbation with acute on chronic hypoxic hypercarbic respiratory failure Acute metabolic encephalopathy, secondary to above History of chronic nicotine dependence History of schizophrenia Diabetes mellitus, type II History of seizures Chronic lower extremity edema Morbid obesity with a BMI of 43.3 Hypertension Hyperlipidemia Discharge disposition Patient is being discharged in a stable condition with guarded prognosis to [facility]. Patient will follow-up with Dr. Alberto in the outpatient setting upon discharge. Patient is to continue with current medications and BiPAP use with outpatient follow-up with pulmonary as scheduled. Total time taken is greater than 35 minutes. Hospital course This is a 64-year-old female who was recently admitted with metabolic encephalopathy with acute on chronic respiratory failure with COPD and CHF exacerbation. Patient being monitored by pulmonary maintained on BiPAP and will continue BiPAP at night and if becoming somnolent recommend BiPAP as needed throughout the day. Patient has been cleared by consultations for discharge to [facility] and will be returning today. Please refer to other consultation notes for further HPI. Currently no reports of chest pain, shortness of breath, or palpitations. Patient is afebrile. No reports of nausea or vomiting and patient is tolerating diet. Patient will be going to [facility] today. Guarded prognosis and high risk for readmissions given patient significant comorbidities and overall generalized poor health. BiPAP settings are 145 with an FiO2 of 40% and recommend 8 PM to 8 AM and may use as needed if becoming more somnolent Physical exam: Gen: This is a 64-year-old female who is awake, alert oriented x 1-2, baseline, well-developed, elderly appearing, morbidly obese HEENT: Head is atraumatic, normocephalic. Pupils equal, round. Sclerae is anicteric. NECK: Supple. No JVD. No lymphadenopathy. No thyromegaly. LUNGS: Diminished breath sounds bilaterally with coarse rhonchi. No intercostal retractions. HEART: S1, S2 are muffled ABDOMEN: Soft. Obese bowel sounds are present. No masses. No tenderness. EXTREMITIES: No pedal edema. No calf tenderness. Generalized edema NEUROLOGICAL: Patient is awake, alert and oriented x 12. Cranial nerves 2 through 12 are grossly intact. Diffusely weak Please refer to medication reconciliation sheet for a list of medications. The impression and plan of care has been dictated by Shonda Junior, Nurse Practitioner as directed. Dr. Shay MD I have performed a history and examination and MDM of this patient, discussed the same with the dictator, and agree with the dictator's assessment and plan as written ,documented as a scribe. Based on total visit time, I have performed more than 50% of the visit. Patient Condition at Discharge: Fair Plan - Discharge Summary Discharge Rx Participant: No New Discharge Prescriptions: New Furosemide [Lasix] 20 mg PO 1600 tab Budesonide [Pulmicort] 1 mg INHALATION RT-BID ml Ipratropium-Albuterol Nebulize [Duoneb 0.5 mg-3 mg/3 ml Soln] 3 ml INHALATION RT-Q2H PRN each PRN Reason: Shortness Of Breath Or Wheezing Furosemide [Lasix] 40 mg PO DAILY tab Continue Ergocalciferol [Vitamin D2 (DRISDOL)] 50,000 unit PO SA@1700 Linagliptin [Tradjenta] 5 mg PO DAILY@0800 Ipratropium-Albuterol Nebulize [Duoneb 0.5 mg-3 mg/3 ml Soln] 3 ml INHALATION RT-QID@00,06,12,18 Budesonide-Formot 160-4.5 Mcg [Symbicort 160-4.5 Mcg Inhaler] 2 puff INHALATION RT-BID@08,17 Acetaminophen [Tylenol] 500 mg PO Q6H PRN #0 PRN Reason: Pain Aspirin 81 mg PO DAILY@0800 Famotidine [Pepcid] 20 mg PO DAILY@0800 Lactulose [Cephulac] 20 gm PO DAILY PRN ml PRN Reason: Constipation cloZAPine [Clozaril] 200 mg PO HS@2100 Divalproex ER [Depakote ER] 250 mg PO HS@2100 Insulin Lispro [Admelog] 7 units SQ BID@0800,1700 Multivitamins, Thera [Multivitamin (formulary)] 1 each PO DAILY@1200 tab Nystatin 100,000 Unit/gm Powd [Mycostatin Powder] 1 applic TOPICAL TID PRN each PRN Reason: Skin Irritation Folic Acid 1 mg PO DAILY@0800 metFORMIN HCL [Glucophage] 1,000 mg PO BID@0800,1700 Atorvastatin Calcium [Lipitor] 20 mg PO HS@2100 Ascorbic Acid [Vitamin C] 500 mg PO BID@0800,1700 Rivaroxaban [Xarelto] 10 mg PO DAILY@0800 Zinc Sulfate [Orazinc] 220 mg PO DAILY@1700 Magnesium Hydroxide [Milk of Magnesia Concentrate] 7,200 mg PO DAILY PRN PRN Reason: Constipation bisacodyL [Dulcolax] 10 mg RECTAL DAILY PRN PRN Reason: Constipation Na Phos,M-B/Na Phos,Di-Ba [Fleet Adult] 133 ml RECTAL DAILY PRN PRN Reason: Constipation Divalproex ER [Depakote ER] 500 mg PO BID@0800,2100 Insulin Degludec [Tresiba Flextouch U-100 Pen] 10 units SQ DAILY@0800 Insulin Lispro [Admelog] See Protocol SQ AC-TID@07,,1630 Insulin Lispro [Admelog] 10 units SQ DAILY@1200 Loperamide [Imodium] 2 - 4 mg PO TID PRN MDD 8mg PRN Reason: Diarrhea Thiamine [Vitamin B-1] 100 mg PO DAILY@0800 Discontinued predniSONE 10 mg PO DAILY@0800 Furosemide [Lasix] 20 mg PO BID@0800,1700 Discharge Medication List Ergocalciferol [Vitamin D2 (DRISDOL)] 50,000 unit PO SA@1700 09/02/19 [History] Linagliptin [Tradjenta] 5 mg PO DAILY@0800 04/20/20 [History] Ipratropium-Albuterol Nebulize [Duoneb 0.5 mg-3 mg/3 ml Soln] 3 ml INHALATION RT-QID@00,06,12,18 04/12/21 [History] Atorvastatin Calcium [Lipitor] 20 mg PO HS@209911/05/21 [History] Budesonide-Formot 160-4.5 Mcg [Symbicort 160-4.5 Mcg Inhaler] 2 puff INHALATION RT-BID@08,17 11/05/21 [History] metFORMIN HCL [Glucophage] 1,000 mg PO BID@0800,1700 11/05/21 [History] Acetaminophen [Tylenol] 500 mg PO Q6H PRN #0 11/16/21 [Rx] Ascorbic Acid [Vitamin C] 500 mg PO BID@0800,1700 12/07/21 [History] Aspirin 81 mg PO DAILY@0800 12/07/21 [History] Famotidine [Pepcid] 20 mg PO DAILY@0800 12/07/21 [History] Rivaroxaban [Xarelto] 10 mg PO DAILY@0800 12/07/21 [History] Zinc Sulfate [Orazinc] 220 mg PO DAILY@169912/07/21 [History] Lactulose [Cephulac] 20 gm PO DAILY PRN ml 12/11/21 [Rx] Magnesium Hydroxide [Milk of Magnesia Concentrate] 7,200 mg PO DAILY PRN 10/01/23 [History] Na Phos,M-B/Na Phos,Di-Ba [Fleet Adult] 133 ml RECTAL DAILY PRN 10/01/23 [History] bisacodyL [Dulcolax] 10 mg RECTAL DAILY PRN 10/01/23 [History] cloZAPine [Clozaril] 200 mg PO HS@209910/01/23 [History] Divalproex ER [Depakote ER] 250 mg PO HS@209909/09/24 [History] Divalproex ER [Depakote ER] 500 mg PO BID@0800,209909/09/24 [History] Insulin Degludec [Tresiba Flextouch U-100 Pen] 10 units SQ DAILY@0800 09/09/24 [History] Insulin Lispro [Admelog] 7 units SQ BID@0800,1700 09/09/24 [History] Insulin Lispro [Admelog] 10 units SQ DAILY@1200 09/09/24 [History] Insulin Lispro [Admelog] See Protocol SQ AC-TID@07,,1630 09/09/24 [History] Loperamide [Imodium] 2 - 4 mg PO TID PRN MDD 8mg 09/09/24 [History] Multivitamins, Thera [Multivitamin (formulary)] 1 each PO DAILY@1200 tab 09/18/24 [Rx] Nystatin 100,000 Unit/gm Powd [Mycostatin Powder] 1 applic TOPICAL TID PRN each 09/18/24 [Rx] Folic Acid 1 mg PO DAILY@0800 11/06/24 [History] Thiamine [Vitamin B-1] 100 mg PO DAILY@0800 11/06/24 [History] Budesonide [Pulmicort] 1 mg INHALATION RT-BID ml 11/16/24 [Rx] Furosemide [Lasix] 20 mg PO 1600 tab 11/16/24 [Rx] Furosemide [Lasix] 40 mg PO DAILY tab 11/16/24 [Rx] Ipratropium-Albuterol Nebulize [Duoneb 0.5 mg-3 mg/3 ml Soln] 3 ml INHALATION RT-Q2H PRN each 11/16/24 [Rx] Follow up Appointment(s)/Referral(s): Bello Alberto MD [Primary Care Provider] - 1-2 days Manohar Rogers DO [Doctor of Osteopathic Medicine] - 1 Week Activity/Diet/Wound Care/Special Instructions: Patient is going to [employer] Activity as tolerated Continue with supplemental oxygen throughout the day and BiPAP at night Continue heart healthy diabetic diet Follow-up primary care provider on discharge Discharge Disposition: TRANSFER TO SNF/ECF
[2024-11-16 16:12] VITALS: PULSE 76
== END 2024-11-16 16:44 | DRG 291 ==
LOC: EC 13:19 → 3SCARD 18:49
PROVIDERS: ADMIT Hospitalist; ATTEND Hospitalist
PROC: 5A09557 Assistance with Respiratory Ventilation, Greater than 96 Consecutive Hours, Continuous Positive Airway Pressure (ICD-10-PCS; principal; 2024-11-06)
DX: I11.0 Hypertensive heart disease with heart failure (principal); G93.41 Metabolic encephalopathy; J96.22 Acute and chronic respiratory failure with hypercapnia; J96.21 Acute and chronic respiratory failure with hypoxia; I50.33 Acute on chronic diastolic (congestive) heart failure; J44.1 Chronic obstructive pulmonary disease with (acute) exacerbation; Z68.42 Body mass index [BMI] 45.0-49.9, adult; E11.9 Type 2 diabetes mellitus without complications; F20.9 Schizophrenia, unspecified; G40.909 Epilepsy, unspecified, not intractable, without status epilepticus; L03.115 Cellulitis of right lower limb; L03.116 Cellulitis of left lower limb; N39.0 Urinary tract infection, site not specified; E66.01 Morbid (severe) obesity due to excess calories; E78.5 Hyperlipidemia, unspecified; Z11.52 Encounter for screening for COVID-19; Z79.01 Long term (current) use of anticoagulants; Z79.4 Long term (current) use of insulin; Z79.51 Long term (current) use of inhaled steroids; Z79.82 Long term (current) use of aspirin; Z79.84 Long term (current) use of oral hypoglycemic drugs; Z79.899 Other long term (current) drug therapy; Z86.16 Personal history of COVID-19; Z87.891 Personal history of nicotine dependence; Z99.81 Dependence on supplemental oxygen; Z88.8 Allergy status to other drugs, medicaments and biological substances; Z91.040 Latex allergy status; Z91.81 History of falling
CPT/HCPCS: 36415; 36600; 51701; 70450; 71045; 71046; 71275; 80048; 80053; 81001; 82140; 82805; 83036; 83880; 84443; 84484; 85025; 85379; 85610; 85730; 87086; 87636; 93005; 94640; 94660; 94760; 96365; 96366; 96367; 96375; 96376; 99291